=== PATIENT | male | born 1940 | race Caucasian/White ===

== ENCOUNTER 2016-11-18 19:43 | Inpatient (IN) | payer OTHER ==
[~2016-11-18] VITALS: Ht 177.8 cm; Wt 88.4 kg
[~2016-11-18 19:43] MED LIST: AMLO-110 PO; AMLO2.5T PO; ATOR-24 PO; PANT40TA PO; SERT50TA PO
[2016-11-18 19:52] VITALS: Ht 177.8 cm; Wt 88.4 kg
[2016-11-18] MEDS ORDERED: MoRPHine SULFATE 4 MG/ML 1 ML CARP\\VIAL IV STA ×2 (20:20→21:44)
[2016-11-18] MEDS: SODIUM CHLORIDE 0.9% 1000ML 1,000 ML IV SCH ×2 (20:47→22:06)
[2016-11-18 20:53] LABS: BASO % 0.1 %; BASO ABS # 0.01 K/uL (0-0.2); COMPLETE YES; EOS % 0.2 %; HEMATOCRIT 42.9 % (42-52); IG% 0.4 %; LYMPH % 22.6 %; LYMPH ABS # 4.08 K/uL (1.2-3.4); MEAN CELL VOLUME 80.2 fL (80-100); MEAN PLATELET VOLUME 11.1 fL (7.4-10.4); MONO % 7.9 %; NEUT % 68.8 %; PLATELET COUNT 281 K/uL (130-400); RED BLOOD COUNT 5.35 M/uL (4.7-6.1); WHITE BLOOD COUNT 18.03 K/uL (4.8-10.8)
[2016-11-18 20:56] LABS: ISTAT CREATININE 0.7 mg/dl (0.6-1.3); ISTAT HEMOGLOBIN 16.3 g/dl (14.0-18.0); ISTAT IONIZED CALCIUM 1.14 mmol/l (1.12-1.32)
--- NOTE | 2016-11-18 20:57 | EMERGENCY ROOM VISIT NOTE ---
History First contact with patient: 19:57 Chief Complaint: ABDOMINAL PAIN Stated Complaint: SEVERE STOMACH PAIN Nursing Triage Summary: Abdominal pain since yesterday. Takes hydrocodone for herniated disc. Patient feels the medication is causing the pain. History of Present Illness The patient is a 76 year old male who presents to the Emergency Room with complaints of severe abdominal pain. The pain started last night but he was largely able to ignore it. He even saw his PCP today to establish care, at which time the pain was still not severe. The pain was more reflux-like pain. Suddenly 4 hours prior to presenting he was awoken from a nap with a severe sharp/stabbing central abdominal pain. He rates it 9/10. It does not radiate to the flanks or back. He has had nausea but no vomiting. He denies diarrhea or constipation. His last BM was this morning and it was soft, no blood or dark tarry stool. He feels that his stomach is distended, his states that it always looks like that. Of note, he consumes 8 units of alcohol daily (beer). He last had alcohol last night. He has been told that he has either cirrhosis or fatty liver disease he is uncertain of the specific diagnosis. He does have chronic back pain for which he takes hydrocodone. He has taken this for years with no recent changes. He was seen in urgent care at the [place] 1 week ago for worsening lower back and hip pain and was started on Gabapentin at that time. He notes that he also feels slightly lightheaded. His appetite is low at baseline and this is unchanged. He denies chest pain, shortness of breath, coughing or wheezing. He denies fevers, chills or nightsweats. Review of Systems A 10 point review of systems was negative unless stated above. Past Medical/Surgical History HTN Type 2 Diabetes Mellitus Hypercholesterolemia Prostate Ca with prostatectomy Spinal decompression surgery Family History Prostate Ca CAD Social History Smoking Status: Never Smoker Smokeless Tobacco Use: No Alcohol Use: heavy (8 units nightly) Drug Use: none Marital Status: Housing Status: lives with family Occupation Status: retired Current/Historical Medications Scheduled Amlodipine (Norvasc), 10 MG PO DAILY Atorvastatin (Lipitor), 40 MG PO QPM Finasteride (Proscar), 5 MG PO DAILY Glipizide (Glucotrol), 10 MG PO BIDM Lisinopril (Lisinopril), 20 MG PO DAILY Metformin Hcl (Glucophage), 1,000 MG PO BID Omeprazole (Prilosec), 20 MG PO DAILY Tamsulosin HCl (Tamsulosin HCl), 0.4 MG PO HS Venlafaxine Hcl (Effexor), 37.5 MG PO BID Scheduled PRN Acetaminophen/Hydrocodone (Hydrocodone/Acetaminophen 5-325 mg), 1 TAB PO Q6 PRN for Pain Cyclobenzaprine Hcl (Flexeril), 10 MG PO BID PRN for Muscle Spasms Etodolac (Etodolac), 500 MG PO BID PRN for PAIN/INFLAMMATION Allergies Coded Allergies: No Known Allergies (Verified , 11/18/16) Physical Exam Vital Signs Date Time Temp Pulse Resp B/P Pulse Ox O2 Delivery O2 Flow Rate FiO2 11/18/16 19:52 36.8 123 22 112/70 93 Room Air Pain Rating (0-10): 9 Physical Exam Constitutional: Vital signs as above were reviewed. Eyes: Pupils equal, round, and reactive to light. Extraocular muscles are intact. No proptosis. No photophobia. ENT: Mucous membranes are moist. Oropharynx is clear. No sinus tenderness. TMs are clear bilaterally. Cardiovascular: Heart with a regular rate and rhythm. Pulses are palpable and symmetric in all 4 extremities. No pedal edema appreciated. Soft systolic murmur at the apex, without radiation to the axilla Respiratory: Lungs clear to auscultation bilaterally. No wheezes, rales, or rhonchi appreciated. No accessory muscle use. No retractions. No increased work of breathing. GI: Abdomen soft, nontender. Normal active bowel sounds. No abdominal hernias appreciated. No rebound. No guarding. Distended; diffuse abdominal tenderness, worse below the ribcage but present througout the abdomen Bowel sounds audible in all 4 quadrants : No CVA tenderness appreciated. Musculoskeletal: No midline cervical or vertebral tenderness. No gross deformities. No bony tenderness. No calf swelling or tenderness. Integumentary: Warm, dry, no rashes appreciated. Neurological: Patient awake, alert, and oriented x 3. Cranial nerves two through 12 grossly intact. Motor 5 out of 5 strength bilateral upper and lower extremities. Lymph: No cervical lymphadenopathy appreciated. Medical Decision & Procedures ER Provider Diagnostic Interpretation: CT ABD/PELVIS IV CONTRAST ONLY CLINICAL HISTORY: Severe generalized abdominal pain COMPARISON STUDY: None. TECHNIQUE: Following the IV administration of 116 mL of Optiray-320, CT scan of the abdomen and pelvis was performed from the lung bases to the proximal femurs. Images are reviewed in the axial, sagittal, and coronal planes. IV contrast was administered without complication. CT DOSE: 578.05 mGy.cm FINDINGS: Lower chest: There are bibasal atelectatic changes. Liver: The liver surface is nodular suggesting underlying cirrhosis. There is trace perihepatic fluid. Gallbladder: Unremarkable. Spleen: The spleen is mildly enlarged measuring 14 cm Pancreas: There is peripancreatic edema, suspicious for acute pancreatitis. Please correlate with appropriate biochemical markers Adrenal glands: Unremarkable. Kidneys: There is symmetric renal cortical enhancement. The kidneys are normal in size without hydronephrosis. Bowel: There is mild duodenal thickening, likely secondary to pancreatitis. There are no transition zones indicate bowel obstruction. There is no evidence of acute diverticulitis. There are no findings to indicate acute appendicitis. Peritoneum: There is trace free fluid in the pelvis. No free intraperitoneal air is visualized. There is a small amount of mesenteric fluid, likely secondary to pancreatitis. Vasculature: There are varices present at the esophagogastric junction. There is no evidence of abdominal aortic aneurysm Adenopathy: There are mildly prominent lymph nodes in the gastrohepatic ligament and vanda hepatis, likely reactive. Pelvic viscera: The bladder, and pelvic viscera are unremarkable. Skeletal structures: No destructive osseous lesions are seen. IMPRESSION: 1. Peripancreatic edema, suspicious for acute pancreatitis. Please correlate with appropriate biochemical markers 2. Mild bowel wall thickening involving the transverse duodenum, likely secondary to pancreatitis 3. Cirrhotic morphology of the liver. Mild splenomegaly. 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 4. No evidence of bowel obstruction. No evidence of free air. Electronically signed by: Abdiaziz Nolen M.D. 11/18/2016 9:26 PM Dictated Date/Time: 11/18/2016 9:21 PM Laboratory Results 11/18/16 20:35 Red Blood Count 5.35, Mean Corpuscular Volume 80.2, Mean Corpuscular Hemoglobin 28.0, Mean Corpuscular Hemoglobin Concent 35.0, Mean Platelet Volume 11.1, Neutrophils (%) (Auto) 68.8, Lymphocytes (%) (Auto) 22.6, Monocytes (%) (Auto) 7.9, Eosinophils (%) (Auto) 0.2, Basophils (%) (Auto) 0.1, Neutrophils # (Auto) 12.40, Lymphocytes # (Auto) 4.08, Monocytes # (Auto) 1.42, Eosinophils # (Auto) 0.04, Basophils # (Auto) 0.01 11/18/16 20:35 Test 11/18/16 20:35 11/18/16 20:39 11/18/16 20:45 White Blood Count 18.03 K/uL (4.8-10.8) Red Blood Count 5.35 M/uL (4.7-6.1) Hemoglobin 15.0 g/dL (14.0-18.0) Hematocrit 42.9 % (42-52) Mean Corpuscular Volume 80.2 fL (80-100) Mean Corpuscular Hemoglobin 28.0 pg (25-34) Mean Corpuscular Hemoglobin Concent 35.0 g/dl (32-36) Platelet Count 281 K/uL (130-400) Mean Platelet Volume 11.1 fL (7.4-10.4) Neutrophils (%) (Auto) 68.8 % Lymphocytes (%) (Auto) 22.6 % Monocytes (%) (Auto) 7.9 % Eosinophils (%) (Auto) 0.2 % Basophils (%) (Auto) 0.1 % Neutrophils # (Auto) 12.40 K/uL (1.4-6.5) Lymphocytes # (Auto) 4.08 K/uL (1.2-3.4) Monocytes # (Auto) 1.42 K/uL (0.11-0.59) Eosinophils # (Auto) 0.04 K/uL (0-0.5) Basophils # (Auto) 0.01 K/uL (0-0.2) RDW Standard Deviation 44.8 fL (36.4-46.3) RDW Coefficient of Variation 15.3 % (11.5-14.5) Immature Granulocyte % (Auto) 0.4 % Immature Granulocyte # (Auto) 0.08 K/uL (0.00-0.02) Est Creatinine Clear Calc Drug Dose 82.5 ml/min Estimated GFR () 98.1 Estimated GFR (Non- 84.6 BUN/Creatinine Ratio 19.5 (10-20) Bedside Lactic Acid Venous 2.01 mmol/L (0.90-1.70) Calcium Level 9.4 mg/dl (8.5-10.1) Total Bilirubin 1.1 mg/dl (0.2-1) Aspartate Amino Transf (AST/SGOT) 53 U/L (15-37) Alanine Aminotransferase (ALT/SGPT) 108 U/L (12-78) Alkaline Phosphatase 165 U/L (45-117) Total Protein 8.6 gm/dl (6.4-8.2) Albumin 4.1 gm/dl (3.4-5.0) Globulin 4.5 gm/dl (2.5-4.0) Albumin/Globulin Ratio 0.9 (0.9-2) Lipase 4124 U/L (73-393) Bedside Hemoglobin 16.3 g/dl (14.0-18.0) Bedside Hematocrit 48 % (42-52) Bedside Sodium 134 mEq/L (135-144) Bedside Potassium 3.8 mEq/L (3.3-5.0) Bedside Chloride 96 mEq/L (101-112) Bedside Total CO2 23 mEq/l (24-31) Anion Gap 21.0 mmol/L (16-25) Bedside Blood Urea Nitrogen 17 mg/dl (7-18) Bedside Creatinine 0.7 mg/dl (0.6-1.3) Bedside Glucose (other) 200 mg/dl (70-99) Bedside Ionized Calcium (Murray) 1.14 mmol/l (1.12-1.32) Urine Color YELLOW Urine Appearance CLEAR (CLEAR) Urine pH 6.0 (4.5-7.5) Urine Specific [place] 1.020 (1.000-1.030) Urine Protein 1+ (NEG) Urine Glucose (UA) 2+ (NEG) Urine Ketones NEG (NEG) Urine Occult Blood NEG (NEG) Urine Nitrite NEG (NEG) Urine Bilirubin NEG (NEG) Urine Urobilinogen NEG (NEG) Urine Leukocyte Esterase NEG (NEG) Urine WBC (Auto) 1-5 /hpf (0-5) Urine RBC (Auto) 0-4 /hpf (0-4) Urine Hyaline Casts (Auto) 1-5 /lpf (0-5) Urine Epithelial Cells (Auto) 10-20 /lpf (0-5) Urine Bacteria (Auto) NEG (NEG) Medications Administered Medications (Trade) Dose Ordered Sig/Sandra Route Start Time Stop Time Status Last Admin Dose Admin Sodium Chloride (Nss 1000ml) 1,000 ml @ 999 mls/hr Q1H1M IV 11/18/16 20:30 12/18/16 20:29 11/18/16 20:47 999 MLS/HR Morphine Sulfate (MoRPHine SULFATE INJ) 4 mg NOW STAT IV 11/18/16 20:20 11/18/16 20:24 DC 11/18/16 20:48 4 MG ED Course 20:00 - Patient evaluated Orders: CBC, CMP, Lipase istat Morphine 4 mg IV 1 L NSS bolus 20:50 - Istat reviewed; normal renal function CT abdomen with IV contrast ordered Re-assessed; patient feeling better 21:00 - Labs reviewed Leukocytosis of 18; no anemia; no thrombocytopenia Mild hyponatremia; POC lactate mildly elevated; transaminitis with elevated alkphos; amylase > 4000 21:30 - CT reviewed: evidence of acute pancreatitis 21:40 - Discussed results with patient and need to admit for further treatment; patient agreeable to plan Patient notes return of pain: 3 mg Morphine IV ordered Patient made NPO NSS @ 250 ml/hr ordered 21:55 - Discussed case with Dr. Hoover who will admit the patient for further treatment. Medical Decision A thorough history was obtained, physical examination performed and the EMR was reviewed. The case was reviewed multiple times over with Dr. Alphonse Parker during the patient's ED visit. Patient is a very pleasant 76 year old male who presents with acute abdominal pain. He does have a marked alcohol intake history, drinking 8 units per evening. WBC did reveal a leukocytosis without anemia or thrombocytopenia. Metabolic panel revealed mild hyponatremia and transaminitis consistent with alcohol consumption. AlkPhos was also elevated but there are no baseline comparisons to these labs. Lipase was noted to be elevated in the 4000s. An amylase level was not obtained CT of the abdomen was obtained and did reveal imaging findings consistent with acute pancreatitis. He is also noted to have a cirrhotic liver. Patient was also cautioned of risks of withdrawal symptoms as an inpatient and to notify staff if he begins to feel agitated has tremors or hallucinations. Patient requires admission for pain control, IV fluids and supportive treatment. Patient was counselled in the ED on long-term goals of reducing alcohol consumption. Patient was doing well at the time of sign-out to hospitalist service. Hospitalist will be coming down to admit the patient for further management. Impression Primary Impression: Acute pancreatitis Additional Impression: Alcohol consumption heavy Departure Information Dispostion Being Evaluated By Hospitalist Condition GOOD Referrals Arun Crawford III, CRNP (PCP) Patient Instructions My [facility] Problem Qualifiers
[2016-11-18] MEDS ORDERED: OPTIRAY 320 IV PRN (21:00)
[2016-11-18 21:09] LABS: URINE APPEARANCE CLEAR (CLEAR); URINE BILIRUBIN NEG (NEG); URINE COLOR YELLOW; URINE NITRITE NEG (NEG); UROBILINOGEN NEG (NEG); ZZUR CULT IF INDIC CLEAN CATCH NO
[2016-11-18 21:12] LABS: BUN/CREATININE RATIO 19.5 (10-20); CALCIUM 9.4 mg/dl (8.5-10.1); CREATININE 0.88 mg/dl (0.60-1.40); POTASSIUM 3.8 mmol/L (3.5-5.1)
[2016-11-18 21:14] LABS: ALB/GLOB RATIO 0.9 (0.9-2)
[2016-11-18] MEDS ORDERED: METF1000 PO (21:15)
[2016-11-18] MEDS ORDERED: FINA5TAB PO (21:15)
[2016-11-18] MEDS ORDERED: EFF/375 PO (21:15)
[2016-11-18] MEDS ORDERED: LDN500 PO (21:15)
[2016-11-18] MEDS ORDERED: LSN20 PO (21:15)
[2016-11-18] MEDS ORDERED: AMLO-114 PO (21:15)
[2016-11-18] MEDS ORDERED: CYCL10TA6 PO (21:15)
[2016-11-18] MEDS ORDERED: HYDR-4313 PO (21:15)
[2016-11-18] MEDS ORDERED: ATOR-26 PO (21:15)
[2016-11-18] MEDS ORDERED: PRLSR20 PO (21:15)
[2016-11-18] MEDS ORDERED: FLM4 PO (21:15)
[2016-11-18] MEDS ORDERED: GLIP10TA9 PO (21:15)
[2016-11-18 21:18] LABS: MANUAL MICROSCOPIC REQUIRED? NO; REVIEW REQ? NO
--- NOTE | 2016-11-18 21:27 | DIAGNOSTIC IMAGING REPORT ---
CT ABD/PELVIS IV CONTRAST ONLY CLINICAL HISTORY: Severe generalized abdominal pain COMPARISON STUDY: None. TECHNIQUE: Following the IV administration of 116 mL of Optiray-320, CT scan of the abdomen and pelvis was performed from the lung bases to the proximal femurs. Images are reviewed in the axial, sagittal, and coronal planes. IV contrast was administered without complication. CT DOSE: 578.05 mGy.cm FINDINGS: Lower chest: There are bibasal atelectatic changes. Liver: The liver surface is nodular suggesting underlying cirrhosis. There is trace perihepatic fluid. Gallbladder: Unremarkable. Spleen: The spleen is mildly enlarged measuring 14 cm Pancreas: There is peripancreatic edema, suspicious for acute pancreatitis. Please correlate with appropriate biochemical markers Adrenal glands: Unremarkable. Kidneys: There is symmetric renal cortical enhancement. The kidneys are normal in size without hydronephrosis. Bowel: There is mild duodenal thickening, likely secondary to pancreatitis. There are no transition zones indicate bowel obstruction. There is no evidence of acute diverticulitis. There are no findings to indicate acute appendicitis. Peritoneum: There is trace free fluid in the pelvis. No free intraperitoneal air is visualized. There is a small amount of mesenteric fluid, likely secondary to pancreatitis. Vasculature: There are varices present at the esophagogastric junction. There is no evidence of abdominal aortic aneurysm Adenopathy: There are mildly prominent lymph nodes in the gastrohepatic ligament and vanda hepatis, likely reactive. Pelvic viscera: The bladder, and pelvic viscera are unremarkable. Skeletal structures: No destructive osseous lesions are seen. IMPRESSION: 1. Peripancreatic edema, suspicious for acute pancreatitis. Please correlate with appropriate biochemical markers 2. Mild bowel wall thickening involving the transverse duodenum, likely secondary to pancreatitis 3. Cirrhotic morphology of the liver. Mild splenomegaly. 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 4. No evidence of bowel obstruction. No evidence of free air. Electronically signed by: Abdiaziz Nolen M.D. 11/18/2016 9:26 PM Dictated Date/Time: 11/18/2016 9:21 PM
--- NOTE | 2016-11-18 21:55 | EMERGENCY ROOM VISIT NOTE ---
ED Visit Note First contact with patient: 19:57 Patient evaluated with resident. 76-year-old with history of regular EtOH use presented to the emergency room for moderate epigastric pain worsening over the last 3 days. His abdomen is noted to be protuberant and moderately tender in the epigastrium. He appears well otherwise. Admitted for pancreatitis
[2016-11-18] MEDS ORDERED: SODIUM CHLORIDE 0.9% 1000ML 1,000 ML IV ONE (22:00)
[2016-11-18 23:15] VITALS: BP 159/106; PULSE 108; TEMP 37.1; O2SAT 93
[2016-11-18] MEDS: ONDANSETRON INJ 2 MG/ML 2 ML VIAL IV PRN (23:39)
[2016-11-18] MEDS: LACTATED RINGER'S 1000ML 1,000 ML IV SCH (23:44)
[2016-11-18 23:53] VITALS: BP 159/106; PULSE 108; TEMP 37.1; O2SAT 93
[2016-11-19] MEDS ORDERED: HYDROmorphone INJ 2 MG/ML SYR/VIAL IV STA (00:13)
[2016-11-19] MEDS ORDERED: NURSING VERBAL MED ORDER ONE (00:15)
[2016-11-19] MEDS ORDERED: MULTI-VITAMIN INFUSION INJ 10 ML, THIAMINE HCL INJ 100 MG, FoLIC ACID INJ 1 MG in SODIU... IV ONE (00:29)
[2016-11-19] MEDS ORDERED: LORAZEPAM 2 MG/ML 1 ML VIAL IV PRN (00:30)
[2016-11-19] MEDS ORDERED: LORAZEPAM INJ 1 MG in SYRINGE 0.5 ML IV PRN (01:30)
--- NOTE | 2016-11-19 03:08 | History and Physical ---
History & Physical Date & Time of Service: Nov 19, 2016 at 02:48 Chief Complaint: Acute Pancreatitis Primary Care Physician: Arun Crawford III, CRNP History of Present Illness Source: patient This is a 76 yo m that is presenting to us with epigastric pain which started approximately 3 days prior. He states that it is in the epigastric region and is a sharp pain. It comes and goes but never fully away and can reach an 8/10. He has not had any N&V but no appetite. No specific agg/ alleviating factors except for movement. He has never had this pain in the past. He also states that he has been taking chronic pain medication for a disc herniation and drinks approx 8 beers a day since he was 17 yo. He was evaluated in the ED and lipase and CT was reflective of pancreatitis. There was also findings reflective of cirrhosis and portal hypertension as noted by the esophageal varices. he has never been diagnosed with cirrhosis in the past. Past Medical/Surgical History Lumbar disc herniation Hyper chol BPH DM HTn Disc decompression Social History Smoking Status: Never Smoker Smokeless Tobacco Use: No Alcohol Use: heavy (as above) Drug Use: none Marital Status: Housing status: lives with family Occupational Status: retired Immunizations History of Influenza Vaccine: No History of Tetanus Vaccine?: Yes History of Pneumococcal: No History of Hepatitis B Vaccine: No Multi-Drug Resistant Organisms History of MDRO: No Allergies Coded Allergies: No Known Allergies (Verified , 11/18/16) Home Medications Scheduled Amlodipine (Norvasc), 10 MG PO DAILY Atorvastatin (Lipitor), 40 MG PO QPM Finasteride (Proscar), 5 MG PO DAILY Glipizide (Glucotrol), 10 MG PO BIDM Lisinopril (Lisinopril), 20 MG PO DAILY Metformin Hcl (Glucophage), 1,000 MG PO BID Omeprazole (Prilosec), 20 MG PO DAILY Tamsulosin HCl (Tamsulosin HCl), 0.4 MG PO HS Venlafaxine Hcl (Effexor), 37.5 MG PO BID Scheduled PRN Acetaminophen/Hydrocodone (Hydrocodone/Acetaminophen 5-325 mg), 1 TAB PO Q6 PRN for Pain Cyclobenzaprine Hcl (Flexeril), 10 MG PO BID PRN for Muscle Spasms Etodolac (Etodolac), 500 MG PO BID PRN for PAIN/INFLAMMATION Review of Systems Constitutional: No fever Eyes: No worsening of vision ENT: No hearing loss Respiratory: No cough, No dyspnea at rest, No dyspnea on exertion, No shortness of breath, No sputum, No wheezing Abdomen: + pain, No constipation, No diarrhea, No nausea, No vomiting Musculoskeletal: No joint pain, No muscle pain Neurologic: No balance problems, No numbness/tingling, No weakness Endocrine: + fatigue Integumentary: No rash Physical Exam Vital Signs Date Time Temp Pulse Resp B/P Pulse Ox O2 Delivery O2 Flow Rate FiO2 11/19/16 00:46 Room Air 11/18/16 23:53 37.1 108 20 159/106 93 Room Air 11/18/16 23:15 37.1 108 20 159/106 93 Room Air 11/18/16 22:44 96 20 157/97 93 Room Air 11/18/16 21:30 104 18 168/94 90 Room Air 11/18/16 19:52 36.8 123 22 112/70 93 Room Air General Appearance: WD/WN, no apparent distress Head: normocephalic, atraumatic Eyes: normal inspection ENT: normal ENT inspection Neck: supple Respiratory/Chest: lungs clear, normal breath sounds, no respiratory distress, no accessory muscle use Cardiovascular: regular rate, rhythm, + systolic murmur (3/6) Abdomen/GI: normal bowel sounds, + tenderness (epigastric no rebound), + distended Back: normal inspection Extremities/Musculoskelatal: no calf tenderness, no pedal edema, normal range of motion Neurologic/Psych: alert, normal mood/affect, oriented x 3 Skin: normal color, warm/dry, no rash Lymphatic: no adenopathy Diagnostics Laboratory Results Results Past 24 Hours Test 11/18/16 20:35 11/18/16 20:39 11/18/16 20:45 11/19/16 00:46 Range/Units White Blood Count 18.03 4.8-10.8 K/uL Red Blood Count 5.35 4.7-6.1 M/uL Hemoglobin 15.0 14.0-18.0 g/dL Hematocrit 42.9 42-52 % Mean Corpuscular Volume 80.2 80-100 fL Mean Corpuscular Hemoglobin 28.0 25-34 pg Mean Corpuscular Hemoglobin Concent 35.0 32-36 g/dl Platelet Count 281 130-400 K/uL Mean Platelet Volume 11.1 7.4-10.4 fL Neutrophils (%) (Auto) 68.8 % Lymphocytes (%) (Auto) 22.6 % Monocytes (%) (Auto) 7.9 % Eosinophils (%) (Auto) 0.2 % Basophils (%) (Auto) 0.1 % Neutrophils # (Auto) 12.40 1.4-6.5 K/uL Lymphocytes # (Auto) 4.08 1.2-3.4 K/uL Monocytes # (Auto) 1.42 0.11-0.59 K/uL Eosinophils # (Auto) 0.04 0-0.5 K/uL Basophils # (Auto) 0.01 0-0.2 K/uL RDW Standard Deviation 44.8 36.4-46.3 fL RDW Coefficient of Variation 15.3 11.5-14.5 % Immature Granulocyte % (Auto) 0.4 % Immature Granulocyte # (Auto) 0.08 0.00-0.02 K/uL Sodium Level 134 136-145 mmol/L Potassium Level 3.8 3.5-5.1 mmol/L Chloride Level 97 98-107 mmol/L Carbon Dioxide Level 25 21-32 mmol/L Anion Gap 12.0 21.0 16-25 mmol/L Blood Urea Nitrogen 17 7-18 mg/dl Creatinine 0.88 0.60-1.40 mg/dl Est Creatinine Clear Calc Drug Dose 82.5 ml/min Estimated GFR () 98.1 Estimated GFR (Non- 84.6 BUN/Creatinine Ratio 19.5 10-20 Random Glucose 187 70-99 mg/dl Bedside Lactic Acid Venous 2.01 0.90-1.70 mmol/L Calcium Level 9.4 8.5-10.1 mg/dl Total Bilirubin 1.1 0.2-1 mg/dl Aspartate Amino Transf (AST/SGOT) 53 15-37 U/L Alanine Aminotransferase (ALT/SGPT) 108 12-78 U/L Alkaline Phosphatase 165 45-117 U/L Total Protein 8.6 6.4-8.2 gm/dl Albumin 4.1 3.4-5.0 gm/dl Globulin 4.5 2.5-4.0 gm/dl Albumin/Globulin Ratio 0.9 0.9-2 Lipase 4124 73-393 U/L Bedside Hemoglobin 16.3 14.0-18.0 g/dl Bedside Hematocrit 48 42-52 % Bedside Sodium 134 135-144 mEq/L Bedside Potassium 3.8 3.3-5.0 mEq/L Bedside Chloride 96 101-112 mEq/L Bedside Total CO2 23 24-31 mEq/l Bedside Blood Urea Nitrogen 17 7-18 mg/dl Bedside Creatinine 0.7 0.6-1.3 mg/dl Bedside Glucose (other) 200 70-99 mg/dl Bedside Ionized Calcium (Murray) 1.14 1.12-1.32 mmol/l Urine Color YELLOW Urine Appearance CLEAR CLEAR Urine pH 6.0 4.5-7.5 Urine Specific [place] 1.020 1.000-1.030 Urine Protein 1+ NEG Urine Glucose (UA) 2+ NEG Urine Ketones NEG NEG Urine Occult Blood NEG NEG Urine Nitrite NEG NEG Urine Bilirubin NEG NEG Urine Urobilinogen NEG NEG Urine Leukocyte Esterase NEG NEG Urine WBC (Auto) 1-5 0-5 /hpf Urine RBC (Auto) 0-4 0-4 /hpf Urine Hyaline Casts (Auto) 1-5 0-5 /lpf Urine Epithelial Cells (Auto) 10-20 0-5 /lpf Urine Bacteria (Auto) NEG NEG Ammonia 39.0 11-32 umol/L Diagnostic Radiology [~ rep ct add3]] CT ABD/PELVIS IV CONTRAST ONLY CLINICAL HISTORY: Severe generalized abdominal pain COMPARISON STUDY: None. TECHNIQUE: Following the IV administration of 116 mL of Optiray-320, CT scan of the abdomen and pelvis was performed from the lung bases to the proximal femurs. Images are reviewed in the axial, sagittal, and coronal planes. IV contrast was administered without complication. CT DOSE: 578.05 mGy.cm FINDINGS: Lower chest: There are bibasal atelectatic changes. Liver: The liver surface is nodular suggesting underlying cirrhosis. There is trace perihepatic fluid. Gallbladder: Unremarkable. Spleen: The spleen is mildly enlarged measuring 14 cm Pancreas: There is peripancreatic edema, suspicious for acute pancreatitis. Please correlate with appropriate biochemical markers Adrenal glands: Unremarkable. Kidneys: There is symmetric renal cortical enhancement. The kidneys are normal in size without hydronephrosis. Bowel: There is mild duodenal thickening, likely secondary to pancreatitis. There are no transition zones indicate bowel obstruction. There is no evidence of acute diverticulitis. There are no findings to indicate acute appendicitis. Peritoneum: There is trace free fluid in the pelvis. No free intraperitoneal air is visualized. There is a small amount of mesenteric fluid, likely secondary to pancreatitis. Vasculature: There are varices present at the esophagogastric junction. There is no evidence of abdominal aortic aneurysm Adenopathy: There are mildly prominent lymph nodes in the gastrohepatic ligament and vanda hepatis, likely reactive. Pelvic viscera: The bladder, and pelvic viscera are unremarkable. Skeletal structures: No destructive osseous lesions are seen. IMPRESSION: 1. Peripancreatic edema, suspicious for acute pancreatitis. Please correlate with appropriate biochemical markers 2. Mild bowel wall thickening involving the transverse duodenum, likely secondary to pancreatitis 3. Cirrhotic morphology of the liver. Mild splenomegaly. 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 4. No evidence of bowel obstruction. No evidence of free air. 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 portal hypertension history of alcohol abuse - IV ativan for alcohol withdrawal - defer from chlordiazepoxide because of cirrhosis/ elevated LFT - start Propranolol 80 mg, Lasix 40 mg, Spironolactone 50 mg - ammonium level - consult GI Hyponatremia possibly secondary to alcohol abuse - recheck in am Unknown systolic murmur - echo for am HTN - Amlodipine decreased to 5 mg because of med additions - cont Lisinopril DM - Glipizide and metformin held - bsg ac hs - insulin ISS Hyperchol -- hold atorvastatin because of elevated LFT BPH - cont tamsulosin and finasteride Depression - cont effexor DVT Prophylaxis SCD - check INR prior to initiating alt FULL CODE Advanced Directives Existing Living Will: No Existing Power of Outside Operator: No Resuscitation Status FULL RESUSCITATION VTE Prophylaxis VTE Risk Assessment Done? Y/N: Yes Risk Level: Moderate Given or contraindicated: SCD's Note Total Time: Critical Care 30 - 74 minutes Additional Copies To Arun Crawford III, CRNP Assessment and Plan Attending Addendum: I have physically seen and examined this patient, have directed their medical care, have supervised the medical residents activities, and agree with the H&P as noted above, with the following changes: NONE The patient is awake, well-developed and adequately nourished, alert and oriented 3, normocephalic and atraumatic, lying in bed and in mild distress secondary to abdominal pain. HEENT--PERRL, EOMI, mucous membranes and oropharynx dry. Neck--supple, no JVD or bruits, thyroid normal, trachea midline, no adenopathy. Heart--normal S1 and S2, no extra beats, no murmurs, rubs or gallops. Lungs--clear bilaterally, no respiratory distress, no accessory muscle use. Abdomen--normal bowel sounds, moderately tympanitic, generalized tenderness. Extremities--no cyanosis, clubbing or edema. There are good distal pulses b/l. Dermatologic--normal skin turgor, normal color, warm and dry, no abnormal lymph nodes, no rash. Neurologic--cranial nerves II through XII grossly intact, motor and sensory examination normal. Rheumatologic--normal range of motion, nontender, muscles and joints. Psychiatric--normal affect. Assessment and Plan: Acute pancreatitis secondary to alcohol use--patient be admitted to medical floor. We'll follow serial amylase and lipase, diet will be as tolerated. I discussed with him the importance of alcohol cessation. He also has mild splenomegaly, and gastric varices are noted. We'll consult gastroenterology for patient to get an EGD to assess for possible esophageal varices. We will start him on Inderal LA 80 mg by mouth every morning, furosemide 40 mg by mouth every morning, and spironolactone 50 mg by mouth every morning to address issues of portal hypertension and minimize potential future bleeding issues. When he does resume a more normal diabetic diet, he may deserve a trial of pancreatic enzymes. Hypertension--continue lisinopril 20 mg by mouth daily, will cut amlodipine from 10 mg to 5 mg by mouth daily, and add Inderal LA 80 mg daily, furosemide 40 mg daily, and spironolactone 50 mg daily as noted above. Diabetes mellitus--hold metformin with asthma grams by mouth twice a day, and glipizide 10 mg by mouth twice a day. Place on Accu-Cheks before meals and at bedtime with NovoLog coverage. BPH--continue tamsulosin 0.4 mg by mouth at bedtime, and finasteride 5 mg by mouth daily. Anxiety/depression--continue venlafaxine 37.5 mg by mouth twice a day. GERD change omeprazole 20 mg by mouth daily to pantoprazole 40 mg by mouth daily for formulary interchange. Hyperlipidemia--continue atorvastatin 40 mg by mouth every afternoon.
[2016-11-19] MEDS ORDERED: GLUCOSE 10 TABS/TUBE PO PRN (03:15)
[2016-11-19] MEDS ORDERED: DEXTROSE 50% 50 ML SYR IV PRN (03:15)
[2016-11-19] MEDS ORDERED: GLUCOSE 40% GEL 15 GM TUBE PO PRN (03:15)
[2016-11-19] MEDS ORDERED: GLUCAGON FOR INJ 1 MG VIAL SQ PRN (03:15)
[2016-11-19 04:43] LABS: HEMATOCRIT 44.3 % (42-52); MEAN CELL VOLUME 82.8 fL (80-100); MEAN CORPUSCULAR HEMOGLOBIN 27.9 pg (25-34); MEAN CORPUSCULAR HGB CONC 33.6 g/dl (32-36); MEAN PLATELET VOLUME 10.1 fL (7.4-10.4); PLATELET COUNT 207 K/uL (130-400); RED BLOOD COUNT 5.35 M/uL (4.7-6.1); WHITE BLOOD COUNT 16.73 K/uL (4.8-10.8)
[2016-11-19 05:10] LABS: INR 1.1 (0.9-1.1); PARTIAL THROMBOPLASTIN RATIO 1.1; PROTHROMBIN TIME (PATIENT) 12.1 SECONDS (9.0-12.0)
[2016-11-19 05:12] LABS: BUN/CREATININE RATIO 17.7 (10-20); CALCIUM 8.6 mg/dl (8.5-10.1); CREATININE 0.92 mg/dl (0.60-1.40); POTASSIUM 4.3 mmol/L (3.5-5.1)
[2016-11-19 05:15] LABS: ALB/GLOB RATIO 0.9 (0.9-2)
[2016-11-19] MEDS: INSULIN ASPART 100 UNITS/ML 3 ML PEN SC SCH ×3 (06:29→18:00)
[2016-11-19] MEDS ORDERED: INSULIN ASPART 100 UNITS/ML 3 ML PEN SC SCH (06:30)
[2016-11-19] MEDS ORDERED: NURSING DECISION MEDICATION ORDER SCH (06:30)
[2016-11-19] MEDS: MoRPHine SULFATE 4 MG/ML 1 ML CARP\\VIAL IV PRN ×3 (06:31→16:52)
[2016-11-19 08:39] VITALS: BP 147/88; PULSE 115; PULSE 20; TEMP 37; O2SAT 91
[2016-11-19] MEDS: FUROSEMIDE 40 MG TAB PO SCH (08:46)
[2016-11-19] MEDS: PROPRANOLOL HCL 80 MG TAB PO SCH (08:46)
[2016-11-19] MEDS: LACTATED RINGER'S 1000ML 1,000 ML IV SCH ×4 (08:46→18:36)
[2016-11-19] MEDS: VENLAFAXINE HCL 37.5 MG TAB PO SCH ×2 (08:46→21:02)
[2016-11-19] MEDS: SPIRONOLACTONE 25 MG TAB PO SCH (08:46)
[2016-11-19] MEDS: PANTOprazole INJ 40 MG in SYRINGE 0 ML IV SCH (08:47)
[2016-11-19] MEDS: FINASTERIDE 5 MG TAB PO SCH (08:47)
[2016-11-19] MEDS: LISINOPRIL 20 MG TAB PO SCH (08:47)
[2016-11-19] MEDS ORDERED: AMLODIPINE BESYLATE 5 MG TAB PO SCH ×2 (09:00)
[2016-11-19] MEDS ORDERED: LACTATED RINGER'S 1000ML 1,000 ML IV SCH (09:15)
--- NOTE | 2016-11-19 09:17 | Gastroenterology Progress Note ---
Progress Note Date of Service: Nov 19, 2016 Subjective Pt evaluation today including: conversation w/ patient, physical exam, chart review, lab review, review of studies, review of inpatient medication list became aware of this consult when opened EMR and saw on list this am. Medications Current Inpatient Medications Medications (Trade) Dose Ordered Sig/Sandra Route Start Time Stop Time Status Last Admin Dose Admin Ioversol (Optiray 320) 100 ml UD PRN IV 11/18/16 21:00 11/22/16 20:59 Ondansetron HCl 4 mg 4 mg Q6H PRN IV 11/18/16 22:30 12/18/16 22:29 11/18/16 23:39 4 MG Lactated Ringer's (Lr 1000ml) 1,000 ml @ 150 mls/hr Q6H40M IV 11/18/16 23:15 11/19/16 19:14 11/18/16 23:44 150 MLS/HR Lorazepam (Ativan Inj) 1 mg Q1H PRN IV 11/19/16 00:30 12/19/16 00:29 Morphine Sulfate (MoRPHine SULFATE INJ) 2 mg Q4 PRN IV 11/19/16 00:45 12/03/16 00:44 Morphine Sulfate 4 mg 4 mg Q4 PRN IV 11/19/16 00:45 12/03/16 00:44 11/19/16 06:31 4 MG Pantoprazole Sodium/Syringe (Protonix Inj/ Syringe) 10 ml @ 5 mls/min DAILY@11 IV 11/19/16 11:00 12/19/16 10:59 Finasteride (Proscar Tab) 5 mg DAILY PO 11/19/16 09:00 12/19/16 08:59 Lisinopril (Zestril Tab) 20 mg DAILY PO 11/19/16 09:00 12/19/16 08:59 Tamsulosin HCl (Flomax Cap) 0.4 mg HS PO 11/19/16 21:00 12/19/16 20:59 Venlafaxine HCl 37.5 mg 37.5 mg BID PO 11/19/16 09:00 12/19/16 08:59 Lorazepam/Syringe (Ativan Inj/ Syringe) 1 ml @ 1 mls/min Q1H PRN IV 11/19/16 01:30 12/19/16 01:29 Amlodipine Besylate (Norvasc Tab) 5 mg QAM PO 11/19/16 09:00 12/19/16 08:59 Propranolol HCl (Inderal Tab) 80 mg QAM PO 11/19/16 09:00 12/19/16 08:59 Furosemide (Lasix Tab) 40 mg QAM PO 11/19/16 09:00 12/19/16 08:59 Spironolactone (Aldactone Tab) 50 mg QAM PO 11/19/16 09:00 12/19/16 08:59 Glucose (Glucose 40% Gel) 15-30 GRAMS 15 GRAMS... UD PRN PO 11/19/16 03:15 12/19/16 03:14 Glucose (Glucose Chew Tab) 4-8 Tablets 4 Tabl... UD PRN PO 11/19/16 03:15 12/19/16 03:14 Dextrose (Dextrose 50% 50ML Syringe) 25-50ML OF 50% DW IV FOR... UD PRN IV 11/19/16 03:15 12/19/16 03:14 Glucagon (Glucagon Inj) 1 mg UD PRN SQ 11/19/16 03:15 12/19/16 03:14 Insulin Aspart (novoLOG ASPART) SLIDING SCALE G... Q6 SC 11/19/16 12:00 12/19/16 11:59 11/19/16 06:29 1 UNITS Objective Vital Signs Date Time Temp Pulse Resp B/P Pulse Ox O2 Delivery O2 Flow Rate FiO2 11/19/16 00:46 Room Air 11/18/16 23:53 37.1 108 20 159/106 93 Room Air 11/18/16 23:15 37.1 108 20 159/106 93 Room Air 11/18/16 22:44 96 20 157/97 93 Room Air 11/18/16 21:30 104 18 168/94 90 Room Air 11/18/16 19:52 36.8 123 22 112/70 93 Room Air Laboratory Results Last 24 Hours Test 11/18/16 20:35 11/18/16 20:39 11/18/16 20:45 11/19/16 00:46 White Blood Count 18.03 K/uL Red Blood Count 5.35 M/uL Hemoglobin 15.0 g/dL Hematocrit 42.9 % Mean Corpuscular Volume 80.2 fL Mean Corpuscular Hemoglobin 28.0 pg Mean Corpuscular Hemoglobin Concent 35.0 g/dl Platelet Count 281 K/uL Mean Platelet Volume 11.1 fL Neutrophils (%) (Auto) 68.8 % Lymphocytes (%) (Auto) 22.6 % Monocytes (%) (Auto) 7.9 % Eosinophils (%) (Auto) 0.2 % Basophils (%) (Auto) 0.1 % Neutrophils # (Auto) 12.40 K/uL Lymphocytes # (Auto) 4.08 K/uL Monocytes # (Auto) 1.42 K/uL Eosinophils # (Auto) 0.04 K/uL Basophils # (Auto) 0.01 K/uL RDW Standard Deviation 44.8 fL RDW Coefficient of Variation 15.3 % Immature Granulocyte % (Auto) 0.4 % Immature Granulocyte # (Auto) 0.08 K/uL Sodium Level 134 mmol/L Potassium Level 3.8 mmol/L Chloride Level 97 mmol/L Carbon Dioxide Level 25 mmol/L Anion Gap 12.0 mmol/L 21.0 mmol/L Blood Urea Nitrogen 17 mg/dl Creatinine 0.88 mg/dl Est Creatinine Clear Calc Drug Dose 82.5 ml/min Estimated GFR () 98.1 Estimated GFR (Non- 84.6 BUN/Creatinine Ratio 19.5 Random Glucose 187 mg/dl Bedside Lactic Acid Venous 2.01 mmol/L Calcium Level 9.4 mg/dl Total Bilirubin 1.1 mg/dl Aspartate Amino Transf (AST/SGOT) 53 U/L Alanine Aminotransferase (ALT/SGPT) 108 U/L Alkaline Phosphatase 165 U/L Total Protein 8.6 gm/dl Albumin 4.1 gm/dl Globulin 4.5 gm/dl Albumin/Globulin Ratio 0.9 Lipase 4124 U/L Bedside Hemoglobin 16.3 g/dl Bedside Hematocrit 48 % Bedside Sodium 134 mEq/L Bedside Potassium 3.8 mEq/L Bedside Chloride 96 mEq/L Bedside Total CO2 23 mEq/l Bedside Blood Urea Nitrogen 17 mg/dl Bedside Creatinine 0.7 mg/dl Bedside Glucose (other) 200 mg/dl Bedside Ionized Calcium (Murray) 1.14 mmol/l Urine Color YELLOW Urine Appearance CLEAR Urine pH 6.0 Urine Specific [place] 1.020 Urine Protein 1+ Urine Glucose (UA) 2+ Urine Ketones NEG Urine Occult Blood NEG Urine Nitrite NEG Urine Bilirubin NEG Urine Urobilinogen NEG Urine Leukocyte Esterase NEG Urine WBC (Auto) 1-5 /hpf Urine RBC (Auto) 0-4 /hpf Urine Hyaline Casts (Auto) 1-5 /lpf Urine Epithelial Cells (Auto) 10-20 /lpf Urine Bacteria (Auto) NEG Ammonia 39.0 umol/L Test 11/19/16 04:21 11/19/16 06:05 White Blood Count 16.73 K/uL Red Blood Count 5.35 M/uL Hemoglobin 14.9 g/dL Hematocrit 44.3 % Mean Corpuscular Volume 82.8 fL Mean Corpuscular Hemoglobin 27.9 pg Mean Corpuscular Hemoglobin Concent 33.6 g/dl RDW Standard Deviation 46.2 fL RDW Coefficient of Variation 15.4 % Platelet Count 207 K/uL Mean Platelet Volume 10.1 fL Prothrombin Time 12.1 SECONDS Prothromb Time International Ratio 1.1 Activated Partial Thromboplast Time 29.2 SECONDS Partial Thromboplastin Ratio 1.1 Sodium Level 137 mmol/L Potassium Level 4.3 mmol/L Chloride Level 100 mmol/L Carbon Dioxide Level 28 mmol/L Anion Gap 9.0 mmol/L Blood Urea Nitrogen 16 mg/dl Creatinine 0.92 mg/dl Est Creatinine Clear Calc Drug Dose 78.9 ml/min Estimated GFR () 94.6 Estimated GFR (Non- 81.6 BUN/Creatinine Ratio 17.7 Random Glucose 183 mg/dl Calcium Level 8.6 mg/dl Magnesium Level 2.0 mg/dl Total Bilirubin 1.1 mg/dl Aspartate Amino Transf (AST/SGOT) 34 U/L Alanine Aminotransferase (ALT/SGPT) 84 U/L Alkaline Phosphatase 130 U/L Total Protein 7.5 gm/dl Albumin 3.5 gm/dl Globulin 4.0 gm/dl Albumin/Globulin Ratio 0.9 Lipase 5771 U/L Bedside Glucose 186 mg/dl Assessment and Plan GI consult dictated job [id number] acute pancreatitsi--likely from ETOH and told patient recommend complete abstinence, lipase is worse today and patient states only urine output about 7 hours ago. Very important to get adequate perfusion of pancreas otherwise can get signficant worsening of pancreatis. Discussed with nurse need strict I/O and looking for 40-50 ml/ hour urine output. Will give one liter bolus of LR then increase rate to 250 ml/hour. NPO except meds epigastric pain--secondary to pancrettis esophageal varices---elective EGD thickened duodenum--likely from pancrrritisi but can evaluate on elective EGD elevated WBC--likely from pancrraritisi elevated lactic acid no evidence of ischemic bowel on CT--likely from volume depleation--folllow elevated LFTS--improved--likely from ETOH
[2016-11-19] MEDS ORDERED: THIAMINE HCL 100 MG/ML 2 ML VIAL IM STA (09:52)
[2016-11-19] MEDS ORDERED: THIAMINE HCL INJ 200 MG in SODIUM CHLORIDE 0.9% 50ML 50 ML IV ONE (11:30)
--- NOTE | 2016-11-19 13:25 | ECHOCARDIOGRAM REPORT ---
*NOTICE TO RECEIVING DEMOCRAT AGENCY This information is strictly Confidential and protected under [place] law. [place] law prohibits you from making any further disclosure of this information unless further disclosure is expressly permitted by the written consent of the person to whom it pertains or is authorized by law. A general authorization for the release of medical or other information is not sufficient for this purpose. Hospital accepts no responsibility if the information is made available to any other person, INCLUDING THE PATIENT. Interpretation Summary * Name: SABINA CLARK Study Date: 11/19/2016 08:50 AM BP: 159/106 mmHg * Patient Location: .[id number]\2 HR: 116 * : 1940 (M/d/yyyy) Gender: Male Height: 70 in * Age: 76 yrs Ethnicity: [place] Weight: 194 lb * Ordering Physician: Brenda Davis * Referring Physician: Self, Referred * Performed By: Sharlene Lindo [facility] * * Reason For Study: MURMUR * BSA: 2.1 m2 * -- Conclusions -- * The left ventricle is hyperdynamic. * No regional wall motion abnormalities noted. * Ejection Fraction = >70 %. * There is moderate concentric left ventricular hypertrophy. * Aortic valve sclerosis moderate, without significant aortic valvular stenosis. Procedure Details * A complete two-dimensional transthoracic echocardiogram was performed (2D, M-mode, Doppler and color flow Doppler). Left Ventricle * The left ventricular cavity is small. * There is moderate concentric left ventricular hypertrophy. * The left ventricle is hyperdynamic. * Ejection Fraction = >70 %. * No regional wall motion abnormalities noted. Right Ventricle * The right ventricle is grossly normal size. * The right ventricular systolic function is normal as assessed by tricuspid annular plane systolic excursion (TAPSE) (normal >1.5 cm). Atria * The left atrium is mildly dilated. * Right atrial size is normal. * There is no evidence of atrial septal defect, but resolution does not allow assessment for a patent foramen ovale. Mitral Valve * The mitral valve is grossly normal. * There is no mitral valve stenosis. * There is trace mitral regurgitation. Tricuspid Valve * The tricuspid valve is not well visualized, but is grossly normal. * There is no tricuspid stenosis. * There is trace tricuspid regurgitation. Aortic Valve * The aortic valve is trileaflet. * Aortic valve sclerosis moderate, without significant aortic valvular stenosis. * The aortic valve opens well. * There is no significant aortic regurgitation. Pulmonic Valve * The pulmonary valve is not well seen, but the Doppler examination is normal without significant regurgitation or stenosis. * There is no significant pulmonary regurgitation. Great Vessels * The aortic root is normal size. * Mildly dilated ascending aorta. * The pulmonary is not well visualized. Pericardium/Pleural * There is no pericardial effusion. Great Vessels * IVC not well seen. MMode 2D Measurements and Calculations IVSd 2.0 cm IVSs 2.1 cm LVIDd 3.9 cm LVIDs 2.8 cm LVPWd 1.4 cm LVPWs 1.6 cm IVS/LVPW 1.4 FS 26.8 % EDV(Teich) 64.0 ml ESV(Teich) 30.1 ml EF(Teich) 53.0 % EDV(cubed) 57.2 ml ESV(cubed) 22.4 ml EF(cubed) 60.8 % % IVS thick 8.7 % % LVPW thick 16.2 % LV mass(C)d 267.7 grams LV mass(C)dI 129.9 grams/m\S\2 LV mass(C)s 221.0 grams LV mass(C)sI 107.3 grams/m\S\2 SV(Teich) 33.9 ml SI(Teich) 16.5 ml/m\S\2 SV(cubed) 34.8 ml SI(cubed) 16.9 ml/m\S\2 Ao root diam 3.9 cm Ao root area 11.9 cm\S\2 LA dimension 4.9 cm LA/Ao 1.3 LVOT diam 1.8 cm LVOT area 2.5 cm\S\2 Doppler Measurements and Calculations MV E max nessa 121.9 cm/sec MV P1/2t max nessa 146.0 cm/sec MV P1/2t 36.1 msec MVA(P1/2t) 6.1 cm\S\2 MV dec slope 1183.2 cm/sec\S\2 MV dec time 0.12 sec Ao V2 max 177.2 cm/sec Ao max PG 12.6 mmHg Ao max PG (full) 7.2 mmHg YUMIKO(V,A) 1.6 cm\S\2 YUMIKO(V,D) 1.6 cm\S\2 LV V1 max PG 5.3 mmHg LV V1 max 115.4 cm/sec PA V2 max 87.1 cm/sec PA max PG 3.0 mmHg TR max nessa 233.1 cm/sec
--- NOTE | 2016-11-19 13:49 | GASTROINTESTINAL CONSULTATION ---
DATE OF CONSULTATION: 11/19/2016 REASON FOR CONSULTATION: Cirrhosis, pancreatitis, and varices. CHIEF COMPLAINT: The patient has abdominal pain. HISTORY OF PRESENT ILLNESS: The patient, the night before admission had some mild epigastric pain and about 4 hours prior to the Emergency Room visit had abrupt worsening of sharp epigastric pain up to 9/10. It was not improving, came into the Emergency Room. A CAT scan of the abdomen and pelvis showed cirrhosis, trace perihepatic fluid, splenomegaly, peripancreatic fluid consistent with pancreatitis and duodenal thickening, probably secondary to pancreatitis and varices at the GE junction. Initial lipase 4124, today worse at 5771. He has been on lactated Ringer's about 150 an hour since then and only about one urine output that at about 0200, about 7 hours prior to this dictation. He thinks the pain is somewhat better. No bloody stools or black stools. No change in bowels, no dysphagia, no change in his weight. No fever. Some nausea but no vomiting. He has a history of GERD. States he may have had an EGD and colonoscopy in the last 3 or 4 years in [place], unknown results but does not remember hearing anything about varices noted at that time. He was told he has cirrhosis and had been followed by GI doctors at the [facility] for that. PAST MEDICAL HISTORY: ALLERGIES: Negative. MEDICATIONS ON ADMISSION: Amlodipine, Lipitor, Proscar, Glucotrol, lisinopril, Glucophage, Prilosec, tamsulosin, Effexor, hydrocodone/acetaminophen, Flexeril, etodolac. PROBLEMS AND SURGERY: Chronic back pain, hypertension, type 2 diabetes, hypercholesterolemia, prostate cancer. He has had prostatectomy, spinal decompression surgery. FAMILY HISTORY: Prostate cancer. SOCIAL HISTORY: Tobacco negative, ethanol 8 beers daily. REVIEW OF SYSTEMS: CONSTITUTIONAL: Negative. EYES: Negative. EARS, NOSE, MOUTH, THROAT: Negative. CARDIOVASCULAR, RESPIRATORY, GENITOURINARY, MUSCULOSKELETAL: Negative. INTEGUMENTARY: Negative. NEUROLOGIC: Negative. PSYCHIATRIC: Depression. ENDOCRINE: Negative. HEMATOLOGIC: History of prostate cancer, otherwise negative. PHYSICAL EXAMINATION: GENERAL: Male, appears stated age, in no acute distress. VITAL SIGNS: Most recent vital signs in the chart. Temp 37.1, pulse 108, respirations 20, BP 159/106, O2 saturation 93% on room air. EYES: Conjunctivae and lids normal. ENT: Oropharynx clear. NECK: Without obvious mass or thyroid enlargement. RESPIRATORY: Normal effort, clear to anterior auscultation. CARDIOVASCULAR: Regular rate and rhythm. EXTREMITIES: Without edema. ABDOMEN: Positive bowel sounds. Guarding in the epigastrium and left abdomen. No rebound, no obvious organomegaly or masses are appreciated. RECTAL: Not done. LYMPH: No obvious neck or groin nodes. MUSCULOSKELETAL: Digits and nails normal. SKIN: Without obvious rash or induration anteriorly. NEUROLOGIC: Cranial nerves intact. Sensation intact. PSYCHIATRIC: Recent and remote memory good. Insight and judgment good. LABORATORY DATA: CBC on admission with elevated white count of 18. PT, PTT was okay. CMP on admission: Sodium 134, CO2 23. LFTs were elevated on admission, total bili 1.1, AST 53, ALT 108, alk phos 165, those are somewhat better. The patient did have an elevated lactic acid on admission, 2.01. IMPRESSION AND PLAN: 1. Acute pancreatitis, likely from ethanol. I told the patient I recommended complete abstinence. Lipase is worsening. The patient's subsequent urine output about 7 hours ago. It is very important to get adequate perfusion of the pancreas, otherwise you can get significant worsening of the pancreatitis. I discussed with the nurse need strict I & O and minimum of 40-50 mL/hour urine output. We will give 1 liter bolus of lactated Ringer's and increase the rate to 250 an hour. 2. Epigastric pain secondary to the pancreatitis. 3. Esophageal varices, elective EGD. 4. Thickened duodenum, likely from pancreatitis but can evaluate on elective EGD. 5. Elevated WBC, likely from pancreatitis. 6. Elevated lactic acid. No evidence of ischemic bowel on CT, likely from volume depletion. Follow. 7. Elevated LFTs, improved, likely from alcohol. MTDD
[2016-11-19 15:51] VITALS: BP 154/91; PULSE 77; TEMP 36.8; O2SAT 90
[2016-11-19 16:00] VITALS: O2SAT 90
[2016-11-19 16:50] VITALS: BP 158/90; PULSE 83
--- NOTE | 2016-11-19 17:17 | Family Medicine Progress Note ---
Progress Note Date of Service Nov 19, 2016. Subjective Pt evaluation today including: conversation w/ patient, physical exam, chart review, lab review The patient was seen and examined at bedside. No acute overnight events. Patient reports continued epigastric pain. On history, patient admits to drinking around 8 beers per day, diet is minimal, has the occasional sandwich. Patient is resting comfortably in bed. Eating and urinating well. No signs of agitation. No confusion. Patient recognized me from 's Cardiology visit from several months prior. Plan of care was described to the patient and all questions were answered. Constitutional: No chills, No fever, No sweats, No weight loss Respiratory: No cough, No shortness of breath, No sputum, No wheezing Cardiovascular: No chest pain Objective Physical Exam General Appearance: WD/WN, no apparent distress, + obese Respiratory/Chest: chest non-tender, lungs clear, normal breath sounds, no respiratory distress Cardiovascular: regular rate, rhythm, no edema, no gallop, no JVD, + pertinent finding (possible systolic ejection murmur) Abdomen: + pertinent finding (obese, difficulty to palpate liver and spleen due to obesity, tender to palpation in the epigastric region. ) Extremities: non-tender, no pedal edema, no calf tenderness Neurologic/Psychiatric: alert, normal mood/affect, oriented x 3 Assessment and Plan 76M with a PMHx of alcohol use presenting to us with a 3 week history of epigastric pain that acutely worsened the previous night. According to pt he drinks approx [address] Scan showed signs of acute pancreatitis. Lipase >4000 on admission. GI (Dr. Salcido) was consulted and his recommendations are incorporated below. Patient is to be placed on NPO and IVF. Lipase on hospital Day #1 continue to be elevated. Acute pancreatitis most likely secondary to EtOH - Pt reports improvement in abdominal pain but still with pain. Remains tachycardic. Patient denies vomiting or melena or BRBPR since admission. - Lipase 5000<--4000, continue to monitor. - GI on board; NPO, Lactated Ringer 125mls/hr. - F/u lipase tomorrow. 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 No clinical signs of esophageal bleeding ( hematemesis, decreasing hemoglobin). - c/w Propranolol 80 mg, Lasix 40 mg, Spironolactone 50 mg - GI on board: Elective upper endoscopy, likely as outpatient. Chronic Alcoholism - No clinical signs of withdrawal at present, no tremors, AAOx3. s/p Banana bag in the ER. - Ativan PRN as per hospital protocol (dosing based on AWSS score). - c/w IV Thiamine supplementation 200mg IV daily. - discussed complete abstinence Systolic murmur Echocardiogram: * The left ventricle is hyperdynamic. * No regional wall motion abnormalities noted. * Ejection Fraction = >70 %. * There is moderate concentric left ventricular hypertrophy. * Aortic valve sclerosis moderate, without significant aortic valvular stenosis. GERD- c/w pantoprazole 40 mg HTN - 158/90 - Increase Amlodipine to 10mg daily. - c/w Lisinopril 20mg daily. DM2 - Glipizide and metformin held - Glycemic consult in place, BS better controlled. HLD- hold atorvastatin because of elevated LFT BPH- c/w tamsulosin 0.4 mg PO QHS and finasteride 5 mg PO daily. Depression- c/w effexor 37.5 mg daily. DVT Proph: Lovenox SQ, SCDs Dispo: FULL CODE, lives with . Resident Involvement: Resident Care Provided Care Provided: Adult Hospital Medicine Reviewed: Pt Seen/Exam by Me History pain better since last night but still with a lot of pain Constitutional: denies: fever Respiratory: negative: short of breath Cardiovascular: denies chest pain Gastrointestinal/Abdominal: positive: abdominal pain General Appearance: mild distress Respiratory: lungs clear, no respiratory distress Cardiovascular: regular rate, rhythm Gastrointestinal: distended, tenderness (all across the abdomen), other ( tympanic bowel sounds) Neurologic/Psychiatric: alert, oriented x 3 Skin Characteristics: warm/dry Assessment/Plan I have reviewed the medical record and performed a history and physical examination of this patient today. I have discussed the case with Dr. Morrison. The above note reflects my findings, conclusions, and recommendations.
[2016-11-19 20:46] VITALS: BP 156/91; PULSE 83; TEMP 36.9; O2SAT 90
[2016-11-19] MEDS ORDERED: ATORVASTATIN 20 MG TAB PO SCH (21:00)
[2016-11-19] MEDS: MoRPHine SULFATE 2 MG/ML CARP IV PRN (21:01)
[2016-11-19] MEDS: TAMSULOSIN HCL 0.4 MG CAP PO SCH (21:02)
[2016-11-19 23:12] VITALS: BP 139/80; PULSE 85; TEMP 36.9; O2SAT 91
[2016-11-20] MEDS: MoRPHine SULFATE 4 MG/ML 1 ML CARP\\VIAL IV PRN ×3 (01:24→14:35)
[2016-11-20] MEDS: LACTATED RINGER'S 1000ML 1,000 ML IV SCH ×3 (02:31→22:18)
[2016-11-20 05:37] LABS: BASO % 0.1 %; BASO ABS # 0.01 K/uL (0-0.2); COMPLETE YES; EOS % 0.3 %; HEMATOCRIT 39.4 % (42-52); IG% 0.4 %; LYMPH % 19.7 %; LYMPH ABS # 3.28 K/uL (1.2-3.4); MEAN CELL VOLUME 82.4 fL (80-100); MEAN CORPUSCULAR HEMOGLOBIN 27.6 pg (25-34); MEAN CORPUSCULAR HGB CONC 33.5 g/dl (32-36); MEAN PLATELET VOLUME 10.1 fL (7.4-10.4); MONO % 7.8 %; NEUT % 71.7 %; PLATELET COUNT 187 K/uL (130-400); RED BLOOD COUNT 4.78 M/uL (4.7-6.1); WHITE BLOOD COUNT 16.61 K/uL (4.8-10.8)
[2016-11-20] MEDS: INSULIN ASPART 100 UNITS/ML 3 ML PEN SC SCH ×4 (06:00→18:00)
[2016-11-20 06:14] LABS: ALB/GLOB RATIO 0.7 (0.9-2); BUN/CREATININE RATIO 19.1 (10-20); CALCIUM 8.8 mg/dl (8.5-10.1); CREATININE 0.9 mg/dl (0.60-1.40); POTASSIUM 4.2 mmol/L (3.5-5.1)
[2016-11-20 08:10] VITALS: BP 160/102; PULSE 95; TEMP 36.7; O2SAT 91
[2016-11-20 08:18] VITALS: O2SAT 91
[2016-11-20] MEDS: THIAMINE HCL INJ 200 MG in SODIUM CHLORIDE 0.9% 50ML 50 ML IV SCH (08:23)
[2016-11-20] MEDS: AMLODIPINE BESYLATE 5 MG TAB PO SCH (08:24)
[2016-11-20] MEDS: FUROSEMIDE 40 MG TAB PO SCH (08:24)
[2016-11-20] MEDS: VENLAFAXINE HCL 37.5 MG TAB PO SCH ×2 (08:24→21:57)
[2016-11-20] MEDS: PROPRANOLOL HCL 80 MG TAB PO SCH (08:24)
[2016-11-20] MEDS: SPIRONOLACTONE 25 MG TAB PO SCH (08:24)
[2016-11-20] MEDS: ENOXAPARIN 30 MG/0.3 ML SYR SQ SCH (08:25)
[2016-11-20] MEDS: PANTOprazole INJ 40 MG in SYRINGE 0 ML IV SCH (08:25)
[2016-11-20] MEDS: LISINOPRIL 20 MG TAB PO SCH (08:25)
[2016-11-20] MEDS: FINASTERIDE 5 MG TAB PO SCH (08:25)
[2016-11-20] MEDS ORDERED: THIAMINE HCL 100 MG/ML 2 ML VIAL IM SCH (09:00)
--- NOTE | 2016-11-20 09:13 | Gastroenterology Progress Note ---
Progress Note Date of Service: Nov 20, 2016 Subjective Pt evaluation today including: conversation w/ patient, physical exam, chart review, lab review, review of studies, review of inpatient medication list CC f/u pancreatitis HPI Pt states abd pain is better but still needing pain meds. NO n/v. No stools. Review of Systems Respiratory: No shortness of breath Cardiac: No chest pain Medications Current Inpatient Medications Medications (Trade) Dose Ordered Sig/Sandra Route Start Time Stop Time Status Last Admin Dose Admin Ioversol (Optiray 320) 100 ml UD PRN IV 11/18/16 21:00 11/22/16 20:59 Ondansetron HCl 4 mg 4 mg Q6H PRN IV 11/18/16 22:30 12/18/16 22:29 11/18/16 23:39 4 MG Lactated Ringer's (Lr 1000ml) 1,000 ml @ 125 mls/hr Q8H IV 11/18/16 23:15 11/20/16 02:31 125 MLS/HR Lorazepam (Ativan Inj) 1 mg Q1H PRN IV 11/19/16 00:30 12/19/16 00:29 Morphine Sulfate (MoRPHine SULFATE INJ) 2 mg Q4 PRN IV 11/19/16 00:45 12/03/16 00:44 11/19/16 21:01 2 MG Morphine Sulfate 4 mg 4 mg Q4 PRN IV 11/19/16 00:45 12/03/16 00:44 11/20/16 01:24 4 MG Pantoprazole Sodium/Syringe (Protonix Inj/ Syringe) 10 ml @ 5 mls/min DAILY@11 IV 11/19/16 11:00 12/19/16 10:59 11/20/16 08:25 5 MLS/MIN Finasteride (Proscar Tab) 5 mg DAILY PO 11/19/16 09:00 12/19/16 08:59 11/20/16 08:25 5 MG Lisinopril (Zestril Tab) 20 mg DAILY PO 11/19/16 09:00 12/19/16 08:59 11/20/16 08:25 20 MG Tamsulosin HCl (Flomax Cap) 0.4 mg HS PO 11/19/16 21:00 12/19/16 20:59 11/19/16 21:02 0.4 MG Venlafaxine HCl 37.5 mg 37.5 mg BID PO 11/19/16 09:00 12/19/16 08:59 11/20/16 08:24 37.5 MG Lorazepam/Syringe (Ativan Inj/ Syringe) 1 ml @ 1 mls/min Q1H PRN IV 11/19/16 01:30 12/19/16 01:29 11/20/16 03:34 1 MLS/MIN Propranolol HCl (Inderal Tab) 80 mg QAM PO 11/19/16 09:00 12/19/16 08:59 11/20/16 08:24 80 MG Furosemide (Lasix Tab) 40 mg QAM PO 11/19/16 09:00 12/19/16 08:59 11/20/16 08:24 40 MG Spironolactone (Aldactone Tab) 50 mg QAM PO 11/19/16 09:00 12/19/16 08:59 11/20/16 08:24 50 MG Glucose (Glucose 40% Gel) 15-30 GRAMS 15 GRAMS... UD PRN PO 11/19/16 03:15 12/19/16 03:14 Glucose (Glucose Chew Tab) 4-8 Tablets 4 Tabl... UD PRN PO 11/19/16 03:15 12/19/16 03:14 Dextrose (Dextrose 50% 50ML Syringe) 25-50ML OF 50% DW IV FOR... UD PRN IV 11/19/16 03:15 12/19/16 03:14 Glucagon (Glucagon Inj) 1 mg UD PRN SQ 11/19/16 03:15 12/19/16 03:14 Insulin Aspart SLIDING SCALE G... Q6 SC 11/19/16 12:00 12/19/16 11:59 11/19/16 06:29 1 UNITS Thiamine HCl/ Sodium Chloride (Vitamin B-1 Inj/ Nss 50ml) 52 ml @ 208 mls/hr QAM IV 11/20/16 09:00 12/20/16 08:59 11/20/16 08:23 208 MLS/HR Enoxaparin Sodium (Lovenox Inj) 30 mg QAM SQ 11/20/16 09:00 12/20/16 08:59 11/20/16 08:25 30 MG Amlodipine Besylate (Norvasc Tab) 10 mg QAM PO 11/20/16 09:00 12/20/16 08:59 11/20/16 08:24 10 MG Objective Vital Signs Date Time Temp Pulse Resp B/P Pulse Ox O2 Delivery O2 Flow Rate FiO2 11/20/16 08:18 91 Room Air 11/20/16 08:10 36.7 95 18 160/102 91 Room Air 11/20/16 00:00 Room Air 11/19/16 23:12 36.9 85 18 139/80 91 Room Air 11/19/16 20:46 36.9 83 18 156/91 90 Room Air 11/19/16 16:50 83 158/90 11/19/16 16:00 90 Room Air 11/19/16 15:51 36.8 77 18 154/91 90 Room Air 11/19/16 11:48 Room Air Physical Exam General Appearance: WD/WN, no apparent distress Respiratory/Chest: lungs clear, no respiratory distress Cardiovascular: no murmur Abdomen: normal bowel sounds, soft, no organomegaly, + tenderness (epigastric mild guarding no rebound) Laboratory Results Last 24 Hours Test 11/19/16 09:40 11/19/16 11:39 11/19/16 16:07 11/20/16 00:00 Lactic Acid Level 2.0 mmol/L Bedside Glucose 161 mg/dl 123 mg/dl 94 mg/dl Test 11/20/16 05:24 11/20/16 06:03 White Blood Count 16.61 K/uL Red Blood Count 4.78 M/uL Hemoglobin 13.2 g/dL Hematocrit 39.4 % Mean Corpuscular Volume 82.4 fL Mean Corpuscular Hemoglobin 27.6 pg Mean Corpuscular Hemoglobin Concent 33.5 g/dl Platelet Count 187 K/uL Mean Platelet Volume 10.1 fL Neutrophils (%) (Auto) 71.7 % Lymphocytes (%) (Auto) 19.7 % Monocytes (%) (Auto) 7.8 % Eosinophils (%) (Auto) 0.3 % Basophils (%) (Auto) 0.1 % Neutrophils # (Auto) 11.91 K/uL Lymphocytes # (Auto) 3.28 K/uL Monocytes # (Auto) 1.30 K/uL Eosinophils # (Auto) 0.05 K/uL Basophils # (Auto) 0.01 K/uL RDW Standard Deviation 46.1 fL RDW Coefficient of Variation 15.2 % Immature Granulocyte % (Auto) 0.4 % Immature Granulocyte # (Auto) 0.06 K/uL Sodium Level 136 mmol/L Potassium Level 4.2 mmol/L Chloride Level 100 mmol/L Carbon Dioxide Level 27 mmol/L Anion Gap 9.0 mmol/L Blood Urea Nitrogen 17 mg/dl Creatinine 0.90 mg/dl Est Creatinine Clear Calc Drug Dose 80.6 ml/min Estimated GFR () 97.2 Estimated GFR (Non- 83.8 BUN/Creatinine Ratio 19.1 Random Glucose 107 mg/dl Lactic Acid Level 1.1 mmol/L Calcium Level 8.8 mg/dl Total Bilirubin 1.4 mg/dl Aspartate Amino Transf (AST/SGOT) 30 U/L Alanine Aminotransferase (ALT/SGPT) 57 U/L Alkaline Phosphatase 106 U/L Total Protein 7.1 gm/dl Albumin 3.0 gm/dl Globulin 4.1 gm/dl Albumin/Globulin Ratio 0.7 Lipase 1355 U/L Chemistry Specimen Hemolysis Bedside Glucose 121 mg/dl Assessment and Plan acute pancreatitsi--likely from ETOH and told patient recommend complete abstinence, good urine output and LR at 125 ml/hour now, clinically improved but still significant pain and needing pain meds so continue npo another 24 hours and reassess epigastric pain--secondary to pancrettis--better esophageal varices---elective EGD--end of hospitalization or outpt thickened duodenum--likely from pancrrritisi but can evaluate on elective EGD elevated WBC--likely from pancrraritisi--improved elevated lactic acid no evidence of ischemic bowel on CT--likely from volume depleation--resolved elevated LFTS--improved--likely from ETOH
[2016-11-20 09:30] VITALS: BP 133/77; PULSE 89
--- NOTE | 2016-11-20 09:31 | Clinical Documentation Query ---
CLINICAL DOCUMENTATION QUERY Dr. FELICIANO, In your clinical opinion is this patient being managed for: ( x ) SIRS in the setting of a non-infectious process--acute pancreatitis ( ) Other explanation of clinical findings (Please Explain) ( ) Unable to determine (Please Define) ( ) Need to Discuss ( ) Not Agree The medical record reflects the following clinical findings, treatment, and risk factors. Clinical Indicators: WBC 18.03, HR123, anion gap 12 Treatment: IV fluids with bolus, daily CBC and PRP's Risk Factors: acute pancreatitis, alcohol abuse, DM SIRS Criteria Temperature >38C or <36C Heart Rate >90/min Respiratory Rate >20/min or PaCO2 <32 mm Hg WBC >12,000/mm3 or <4000/mm3 or >10% immature bands Please clarify and document your clinical opinion in the progress notes and discharge summary. Terms such as "probable", "suspected", "likely", "questionable", "possible", or "still to be ruled out" are acceptable. IF IN AGREEMENT, YOU MUST DOCUMENT ABOVE DIAGNOSTIC STATEMENT IN DAILY PROGRESS NOTES AND DISCHARGE SUMMARY. This document is not part of the patient's record. Thank You, Sylvia Leiva RN [phone]
--- NOTE | 2016-11-20 09:33 | Clinical Documentation Query ---
CLINICAL DOCUMENTATION QUERY Dr. PALACIO, In your clinical opinion is this patient being managed for: (x) SIRS in the setting of a non-infectious process--acute pancreatitis ( ) Other explanation of clinical findings (Please Explain) ( ) Unable to determine (Please Define) ( ) Need to Discuss ( ) Not Agree The medical record reflects the following clinical findings, treatment, and risk factors. Clinical Indicators: WBC 18.03, HR123, anion gap 12 Treatment: IV fluids with bolus, daily CBC and PRP's Risk Factors: acute pancreatitis, alcohol abuse, DM SIRS Criteria Temperature >38C or <36C Heart Rate >90/min Respiratory Rate >20/min or PaCO2 <32 mm Hg WBC >12,000/mm3 or <4000/mm3 or >10% immature bands Please clarify and document your clinical opinion in the progress notes and discharge summary. Terms such as "probable", "suspected", "likely", "questionable", "possible", or "still to be ruled out" are acceptable. IF IN AGREEMENT, YOU MUST DOCUMENT ABOVE DIAGNOSTIC STATEMENT IN DAILY PROGRESS NOTES AND DISCHARGE SUMMARY. This document is not part of the patient's record. Thank You, Sylvia Leiva RN [phone]
[2016-11-20 15:36] VITALS: BP 155/89; PULSE 73; TEMP 36.7; O2SAT 94
[2016-11-20 16:10] VITALS: O2SAT 94
--- NOTE | 2016-11-20 18:51 | Family Medicine Progress Note ---
Progress Note Date of Service Nov 20, 2016. Subjective Pt evaluation today including: conversation w/ patient, physical exam, chart review, lab review The patient was seen and examined at bedside. Pt pulled out IV overnight and was found walking in hallway, received 1 dose of Ativan overnight which apparently worsened his confusion. When examined at bedside the patient didn't realize he was in the hospital, but was oriented to person, place and time. Patient states that is not in any pain at the moment. Heartburn has improved. Constitutional: No chills, No fever, No sweats Respiratory: No cough, No shortness of breath, No sputum, No wheezing Cardiovascular: No chest pain Abdomen: No diarrhea, No nausea, No pain, No vomiting Musculoskeletal: No joint pain Male : No dysuria Objective Physical Exam General Appearance: WD/WN, no apparent distress, + obese Respiratory/Chest: chest non-tender, lungs clear, normal breath sounds, no respiratory distress, no accessory muscle use Cardiovascular: regular rate, rhythm, no edema, no gallop, no JVD, no murmur Abdomen: normal bowel sounds, non tender, soft, no organomegaly Neurologic/Psychiatric: alert, normal mood/affect, oriented x 3, + pertinent finding (Patient is oriented to person place and time but after a long conversation he stated that he didn't realize that he was in the hospital. The patient remembers meeting me from the previous day. ) Assessment and Plan 76M with a PMHx of alcohol use presenting to us with a 3 week history of epigastric pain that acutely worsened the previous night. According to pt he drinks approx [address] Scan showed signs of acute pancreatitis. Lipase >4000 on admission. GI (Dr. Salcido) was consulted and his recommendations are incorporated below. Patient is to be placed on NPO and IVF. Lipase is trending down. SIRS in the setting of a non-infectious process--acute pancreatitis - Pt was tachycardic on admission with possible confabulation and AMS. - IVF resuscitation LR 125mls/hr. Acute pancreatitis most likely secondary to EtOH - VSS, no clinical complaints, no vomiting. - Lipase 1000<--5000<--4000, continue to monitor. - GI on board; c/w NPO and Lactated Ringer 125mls/hr. - F/u lipase tomorrow. Confusion, possible Wernicke's from Chronic Alcoholism - Pt shows beginning of confabulation. No clinical signs of withdrawal at present, no tremors, AAOx3. Patient is getting up and walking around the halls. Patient was put on 1 to 1 observation. - Ativan PRN as per hospital protocol (dosing based on AWSS score). - c/w IV Thiamine supplementation 200mg IV daily. - discussed complete abstinence from alcohol. 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 No clinical signs of esophageal bleeding ( hematemesis, decreasing hemoglobin). - c/w Propranolol 80 mg, Lasix 40 mg, Spironolactone 50 mg - GI on board: Elective upper endoscopy, likely as outpatient or end of hospital stay. Systolic murmur- Echocardiogram: grossly normal. GERD- c/w pantoprazole 40 mg HTN - 139/80 - c/w Amlodipine to 10mg daily. - c/w Lisinopril 20mg daily. DM2 - Glipizide and metformin held - Glycemic consult in place, BS better controlled. Elevated LFT - Hep B and C negative. HLD- hold atorvastatin because of elevated LFT. BPH- c/w tamsulosin 0.4 mg PO QHS and finasteride 5 mg PO daily. Depression- c/w effexor 37.5 mg daily. DVT Proph: Lovenox SQ, SCDs Dispo: FULL CODE, lives with . Resident Involvement: Resident Care Provided Care Provided: Adult Hospital Medicine Reviewed: Pt Seen/Exam by Me History abdomen felt better confused Constitutional: denies: fever Respiratory: negative: short of breath Cardiovascular: denies chest pain Gastrointestinal/Abdominal: positive: abdominal pain General Appearance: no apparent distress Respiratory: lungs clear, no respiratory distress Cardiovascular: regular rate, rhythm Gastrointestinal: normal bowel sounds, soft, tenderness, other (distension resolved) Neurologic/Psychiatric: alert, other (confused) Skin Characteristics: warm/dry Assessment/Plan I have reviewed the medical record and performed a history and physical examination of this patient today. I have discussed the case with Dr. Morrison. The above note reflects my findings, conclusions, and recommendations.
[2016-11-20] MEDS: TAMSULOSIN HCL 0.4 MG CAP PO SCH (21:57)
[2016-11-20 23:34] VITALS: BP 151/94; PULSE 89; TEMP 36.8; O2SAT 90
[2016-11-21 01:01] VITALS: O2SAT 94
[2016-11-21] MEDS: MoRPHine SULFATE 4 MG/ML 1 ML CARP\\VIAL IV PRN ×2 (02:15→21:59)
[2016-11-21 02:35] VITALS: O2SAT 92
[2016-11-21] MEDS: LACTATED RINGER'S 1000ML 1,000 ML IV SCH ×3 (04:04→20:13)
[2016-11-21] MEDS: INSULIN ASPART 100 UNITS/ML 3 ML PEN SC SCH ×5 (05:56→23:53)
[2016-11-21 06:49] VITALS: BP 149/82; PULSE 86; TEMP 36.6; O2SAT 91
[2016-11-21 07:33] LABS: HEMATOCRIT 37.2 % (42-52); MEAN CELL VOLUME 81.9 fL (80-100); MEAN CORPUSCULAR HEMOGLOBIN 27.3 pg (25-34); MEAN CORPUSCULAR HGB CONC 33.3 g/dl (32-36); MEAN PLATELET VOLUME 9.9 fL (7.4-10.4); PLATELET COUNT 153 K/uL (130-400); RED BLOOD COUNT 4.54 M/uL (4.7-6.1)
[2016-11-21] MEDS: FINASTERIDE 5 MG TAB PO SCH (08:09)
[2016-11-21] MEDS: AMLODIPINE BESYLATE 5 MG TAB PO SCH (08:10)
[2016-11-21] MEDS: PROPRANOLOL HCL 80 MG TAB PO SCH (08:10)
[2016-11-21] MEDS: VENLAFAXINE HCL 37.5 MG TAB PO SCH ×2 (08:10→20:08)
[2016-11-21 08:11] LABS: BUN/CREATININE RATIO 19.3 (10-20); CALCIUM 8.8 mg/dl (8.5-10.1); CREATININE 0.8 mg/dl (0.60-1.40); POTASSIUM 3.8 mmol/L (3.5-5.1)
[2016-11-21] MEDS: LISINOPRIL 20 MG TAB PO SCH (08:11)
[2016-11-21] MEDS: FUROSEMIDE 40 MG TAB PO SCH (08:11)
[2016-11-21] MEDS: SPIRONOLACTONE 25 MG TAB PO SCH (08:11)
[2016-11-21] MEDS: ENOXAPARIN 30 MG/0.3 ML SYR SQ SCH (08:12)
[2016-11-21 08:14] LABS: ALB/GLOB RATIO 0.6 (0.9-2)
[2016-11-21] MEDS: THIAMINE HCL INJ 200 MG in SODIUM CHLORIDE 0.9% 50ML 50 ML IV SCH (08:16)
[2016-11-21] MEDS: PANTOprazole INJ 40 MG in SYRINGE 0 ML IV SCH (12:00)
--- NOTE | 2016-11-21 13:02 | Family Medicine Progress Note ---
Progress Note Date of Service Nov 21, 2016. Subjective Pt evaluation today including: conversation w/ patient, physical exam, chart review, lab review Voiding: no voiding problems Patient was seen at the bedside. No acute events overnight. Patient complains of generalized abdominal pain and rates it as 4/10; however it has improved since yesterday. Denies nausea, vomiting, diarrhea, constipation, SOB, chest pain, GI bleeding, or any other additional complaints. Constitutional: No fever, No weight loss Respiratory: No cough, No shortness of breath, No sputum, No wheezing Cardiovascular: No chest pain, No edema Abdomen: + pain (generalized pain improved since yesterday), No constipation , No diarrhea, No nausea, No vomiting Musculoskeletal: No muscle pain Skin: No rash Medications Medications Administered Medications (Trade) Dose Ordered Sig/Sandra Route Start Time Stop Time Status Last Admin Dose Admin Sodium Chloride (Nss 1000ml) 1,000 ml @ 999 mls/hr Q1H1M IV 11/18/16 20:30 11/18/16 23:10 DC 11/18/16 22:06 999 MLS/HR Morphine Sulfate (MoRPHine SULFATE INJ) 4 mg NOW STAT IV 11/18/16 20:20 11/18/16 20:24 DC 11/18/16 20:48 4 MG Morphine Sulfate 3 mg 3 mg NOW STAT IV 11/18/16 21:44 11/18/16 21:45 DC 11/18/16 22:03 3 MG Sodium Chloride (Nss 1000ml) 1,000 ml @ 250 mls/hr Q4H ONCE IV 11/18/16 22:00 11/18/16 23:11 DC 11/18/16 22:00 250 MLS/HR Ondansetron HCl 4 mg 4 mg Q6H PRN IV 11/18/16 22:30 12/18/16 22:29 11/18/16 23:39 4 MG Lactated Ringer's (Lr 1000ml) 1,000 ml @ 125 mls/hr Q8H IV 11/18/16 23:15 12/18/16 23:14 11/21/16 12:21 125 MLS/HR Hydromorphone HCl 2 mg 2 mg NOW STAT IV 11/19/16 00:13 11/19/16 00:14 DC 11/19/16 00:23 2 MG Multivitamins/ Thiamine HCl/ Folic Acid/Sodium Chloride (Mvi Infusion Inj/Vitamin B-1 Inj/Folvite Inj/ Nss 1000ml) 1,011.2 ml @ 500 mls/ hr Q2H2M ONCE IV 11/19/16 00:29 11/19/16 02:30 DC 11/19/16 01:36 500 MLS/HR Morphine Sulfate (MoRPHine SULFATE INJ) 2 mg Q4 PRN IV 11/19/16 00:45 12/03/16 00:44 11/19/16 21:01 2 MG Morphine Sulfate 4 mg 4 mg Q4 PRN IV 11/19/16 00:45 12/03/16 00:44 11/21/16 02:15 4 MG Pantoprazole Sodium/Syringe (Protonix Inj/ Syringe) 10 ml @ 5 mls/min DAILY@11 IV 11/19/16 11:00 12/19/16 10:59 11/21/16 12:00 5 MLS/MIN Finasteride (Proscar Tab) 5 mg DAILY PO 11/19/16 09:00 12/19/16 08:59 11/21/16 08:09 5 MG Lisinopril (Zestril Tab) 20 mg DAILY PO 11/19/16 09:00 12/19/16 08:59 11/21/16 08:11 20 MG Tamsulosin HCl (Flomax Cap) 0.4 mg HS PO 11/19/16 21:00 12/19/16 20:59 11/20/16 21:57 0.4 MG Venlafaxine HCl 37.5 mg 37.5 mg BID PO 11/19/16 09:00 12/19/16 08:59 11/21/16 08:10 37.5 MG Lorazepam/Syringe (Ativan Inj/ Syringe) 1 ml @ 1 mls/min Q1H PRN IV 11/19/16 01:30 12/19/16 01:29 11/20/16 03:34 1 MLS/MIN Amlodipine Besylate (Norvasc Tab) 5 mg QAM PO 11/19/16 09:00 11/19/16 17:18 DC 11/19/16 08:47 5 MG Propranolol HCl (Inderal Tab) 80 mg QAM PO 11/19/16 09:00 12/19/16 08:59 11/21/16 08:10 80 MG Furosemide (Lasix Tab) 40 mg QAM PO 11/19/16 09:00 12/19/16 08:59 11/21/16 08:11 40 MG Spironolactone (Aldactone Tab) 50 mg QAM PO 11/19/16 09:00 12/19/16 08:59 11/21/16 08:11 50 MG Insulin Aspart SLIDING SCALE G... Q6 SC 11/19/16 12:00 12/19/16 11:59 11/19/16 06:29 1 UNITS Lactated Ringer's 1,000 ml @ 999 mls/hr Q1H1M IV 11/19/16 09:15 11/19/16 10:15 DC 11/19/16 09:24 999 MLS/HR Thiamine HCl 200 mg/Sodium Chloride 52 ml @ 208 mls/hr TODAY@1130 ONCE IV 11/19/16 11:30 11/19/16 11:44 DC 11/19/16 11:20 208 MLS/HR Thiamine HCl/ Sodium Chloride (Vitamin B-1 Inj/ Nss 50ml) 52 ml @ 208 mls/hr QAM IV 11/20/16 09:00 12/20/16 08:59 11/21/16 08:16 208 MLS/HR Enoxaparin Sodium (Lovenox Inj) 30 mg QAM SQ 11/20/16 09:00 12/20/16 08:59 11/21/16 08:12 30 MG Amlodipine Besylate (Norvasc Tab) 10 mg QAM PO 11/20/16 09:00 12/20/16 08:59 11/21/16 08:10 10 MG Objective Vital Signs Date Time Temp Pulse Resp B/P Pulse Ox O2 Delivery O2 Flow Rate FiO2 11/21/16 08:00 Room Air 11/21/16 06:49 36.6 86 20 149/82 91 Room Air 11/21/16 02:35 92 Room Air 11/21/16 01:01 94 Nasal Cannula 2.0 11/21/16 00:13 Room Air 11/20/16 23:34 36.8 89 22 151/94 90 Room Air 11/20/16 16:10 94 Nasal Cannula 2.0 11/20/16 15:36 36.7 73 20 155/89 94 Nasal Cannula 2.0 Physical Exam General Appearance: no apparent distress, + obese Neck: supple, trachea midline Respiratory/Chest: chest non-tender, lungs clear, normal breath sounds, no respiratory distress Cardiovascular: regular rate, rhythm, no edema Abdomen: normal bowel sounds, soft, + distended, + tenderness (complains of pain on all quadrants on deep palpation) Extremities: non-tender, no pedal edema Neurologic/Psychiatric: alert, normal mood/affect, oriented x 3 Skin: normal color, warm/dry, no rash Laboratory Results Results Past 24 Hours Test 11/20/16 18:16 11/20/16 23:58 11/21/16 05:56 11/21/16 07:20 Range/Units Bedside Glucose 105 96 104 70-99 mg/dl White Blood Count 11.70 4.8-10.8 K/uL Red Blood Count 4.54 4.7-6.1 M/uL Hemoglobin 12.4 14.0-18.0 g/dL Hematocrit 37.2 42-52 % Mean Corpuscular Volume 81.9 80-100 fL Mean Corpuscular Hemoglobin 27.3 25-34 pg Mean Corpuscular Hemoglobin Concent 33.3 32-36 g/dl RDW Standard Deviation 44.9 36.4-46.3 fL RDW Coefficient of Variation 15.0 11.5-14.5 % Platelet Count 153 130-400 K/uL Mean Platelet Volume 9.9 7.4-10.4 fL Sodium Level 135 136-145 mmol/L Potassium Level 3.8 3.5-5.1 mmol/L Chloride Level 100 98-107 mmol/L Carbon Dioxide Level 26 21-32 mmol/L Anion Gap 9.0 3-11 mmol/L Blood Urea Nitrogen 15 7-18 mg/dl Creatinine 0.80 0.60-1.40 mg/dl Est Creatinine Clear Calc Drug Dose 90.7 ml/min Estimated GFR () 102.0 Estimated GFR (Non- 88.0 BUN/Creatinine Ratio 19.3 10-20 Random Glucose 96 70-99 mg/dl Calcium Level 8.8 8.5-10.1 mg/dl Total Bilirubin 1.4 0.2-1 mg/dl Aspartate Amino Transf (AST/SGOT) 30 15-37 U/L Alanine Aminotransferase (ALT/SGPT) 45 12-78 U/L Alkaline Phosphatase 128 45-117 U/L Total Protein 7.1 6.4-8.2 gm/dl Albumin 2.7 3.4-5.0 gm/dl Globulin 4.4 2.5-4.0 gm/dl Albumin/Globulin Ratio 0.6 0.9-2 Lipase 576 73-393 U/L Test 11/21/16 11:57 Range/Units Bedside Glucose 129 70-99 mg/dl Assessment and Plan 76M with a PMHx of alcohol use presenting to us with a 3 week history of epigastric pain that acutely worsened the previous night. According to pt he drinks approx [address] Scan showed signs of acute pancreatitis. Lipase >4000 on admission. GI (Dr. Salcido) was consulted and his recommendations are incorporated below. Patient is currently on IVF and continued to be NPO. Lipase is trending down. 1. SIRS in the setting of a non-infectious process--acute pancreatitis - Pt was tachycardic on admission with possible confabulation and AMS. - IVF resuscitation LR 125mls/hr. 2. Abdominal pain - Most likely secondary to pancreatitis - Chest and Abd X-ray (11/21/16): No active disease in the chest. There is gaseous distention of the small bowel and colon suggesting ileus. There is no radiographic evidence of small bowel obstruction. - Pain worse later in the day - Per GI recommendation if KUB is negative order US to look for ascites. - Order US abd for ascites and will f/u - Continue NPO per GI recommendation 3. Acute pancreatitis most likely secondary to EtOH - Lipase is trending down, 4124---> 5771---> 1355---> 576, continue to monitor. - Per GI recommendation continue to be NPO given worsening of pain - Continue LR 125mls/hr. - F/u CMP and lipase tomorrow. 4. Confusion, possible Wernicke's from Chronic Alcoholism (Resolved) - Patient is AAOx3. No clinical signs of withdrawal at present, no tremors was noted. Patient is getting up and walking around the halls. - Ativan PRN as per hospital protocol (dosing based on AWSS score). - Continue with IV Thiamine supplementation 200mg IV daily. - Discussed complete abstinence from alcohol. 4. 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 No clinical signs of esophageal bleeding - Continue Propranolol 80 mg, Lasix 40 mg, Spironolactone 50 mg - GI on board: Elective upper endoscopy, likely as outpatient or end of hospital stay. 5. Systolic murmur - Echocardiogram: grossly normal. 6. GERD - Continue pantoprazole 40 mg 7. HTN - His today's BP is 149/82 - Continue with Amlodipine to 10mg daily. - Continue with Lisinopril 20mg daily. 8. DM2 - Glipizide and metformin held - Glycemic consult in place, BS better controlled. 9. Elevated LFT - AST and ALT are normal. Alk Phos and Total Bili are elevated (128,1.4) - Hep B and C negative - CMP tomorrow am 10. HLD - Hold atorvastatin because of elevated LFT. 11. BPH - Continue tamsulosin 0.4 mg PO QHS - Finasteride 5 mg PO daily. 12. Depression - Continue Effexor 37.5 mg daily. 13. DVT Proph - Lovenox SQ, SCDs Reviewed: Pt Seen/Exam by Me History felt much better this morning. later in the day - pain worsened Constitutional: denies: fever Respiratory: negative: short of breath Cardiovascular: denies chest pain General Appearance: no apparent distress Respiratory: lungs clear, no respiratory distress Cardiovascular: regular rate, rhythm Gastrointestinal: normal bowel sounds, soft, tenderness (epigastric and diffusely in lower abdomen) Neurologic/Psychiatric: alert, oriented x 3 Assessment/Plan I have reviewed the medical record and performed a history and physical examination of this patient today. I have discussed the case with Dr. Jennings. The above note reflects my findings, conclusions, and recommendations.
[2016-11-21 14:25] VITALS: BP 159/86; PULSE 66; TEMP 36.5; O2SAT 92
[2016-11-21] MEDS: MoRPHine SULFATE 2 MG/ML CARP IV PRN (15:03)
--- NOTE | 2016-11-21 15:28 | Gastroenterology Progress Note ---
Progress Note Date of Service: Nov 21, 2016 Subjective Pt evaluation today including: conversation w/ patient, conversation w/ family (), physical exam, chart review, lab review, review of studies, review of inpatient medication list CC f/u pancreatitis HPI Pt was doing better but had some worsening of abd pain with N/V this pm. No stools. Feels distended. Review of Systems Respiratory: No shortness of breath Cardiac: No chest pain Medications Current Inpatient Medications Medications (Trade) Dose Ordered Sig/Sandra Route Start Time Stop Time Status Last Admin Dose Admin Ioversol (Optiray 320) 100 ml UD PRN IV 11/18/16 21:00 11/22/16 20:59 Ondansetron HCl 4 mg 4 mg Q6H PRN IV 11/18/16 22:30 12/18/16 22:29 11/18/16 23:39 4 MG Lactated Ringer's (Lr 1000ml) 1,000 ml @ 125 mls/hr Q8H IV 11/18/16 23:15 12/18/16 23:14 11/21/16 12:21 125 MLS/HR Lorazepam (Ativan Inj) 1 mg Q1H PRN IV 11/19/16 00:30 12/19/16 00:29 Morphine Sulfate (MoRPHine SULFATE INJ) 2 mg Q4 PRN IV 11/19/16 00:45 12/03/16 00:44 11/21/16 15:03 2 MG Morphine Sulfate 4 mg 4 mg Q4 PRN IV 11/19/16 00:45 12/03/16 00:44 11/21/16 02:15 4 MG Pantoprazole Sodium/Syringe (Protonix Inj/ Syringe) 10 ml @ 5 mls/min DAILY@11 IV 11/19/16 11:00 12/19/16 10:59 11/21/16 12:00 5 MLS/MIN Finasteride (Proscar Tab) 5 mg DAILY PO 11/19/16 09:00 12/19/16 08:59 11/21/16 08:09 5 MG Lisinopril (Zestril Tab) 20 mg DAILY PO 11/19/16 09:00 12/19/16 08:59 11/21/16 08:11 20 MG Tamsulosin HCl (Flomax Cap) 0.4 mg HS PO 11/19/16 21:00 12/19/16 20:59 11/20/16 21:57 0.4 MG Venlafaxine HCl 37.5 mg 37.5 mg BID PO 11/19/16 09:00 12/19/16 08:59 11/21/16 08:10 37.5 MG Lorazepam/Syringe (Ativan Inj/ Syringe) 1 ml @ 1 mls/min Q1H PRN IV 11/19/16 01:30 12/19/16 01:29 11/20/16 03:34 1 MLS/MIN Propranolol HCl (Inderal Tab) 80 mg QAM PO 11/19/16 09:00 12/19/16 08:59 11/21/16 08:10 80 MG Furosemide (Lasix Tab) 40 mg QAM PO 11/19/16 09:00 12/19/16 08:59 11/21/16 08:11 40 MG Spironolactone (Aldactone Tab) 50 mg QAM PO 11/19/16 09:00 12/19/16 08:59 11/21/16 08:11 50 MG Glucose (Glucose 40% Gel) 15-30 GRAMS 15 GRAMS... UD PRN PO 11/19/16 03:15 12/19/16 03:14 Glucose (Glucose Chew Tab) 4-8 Tablets 4 Tabl... UD PRN PO 11/19/16 03:15 12/19/16 03:14 Dextrose (Dextrose 50% 50ML Syringe) 25-50ML OF 50% DW IV FOR... UD PRN IV 11/19/16 03:15 12/19/16 03:14 Glucagon (Glucagon Inj) 1 mg UD PRN SQ 11/19/16 03:15 12/19/16 03:14 Insulin Aspart SLIDING SCALE G... Q6 SC 11/19/16 12:00 12/19/16 11:59 11/19/16 06:29 1 UNITS Thiamine HCl/ Sodium Chloride (Vitamin B-1 Inj/ Nss 50ml) 52 ml @ 208 mls/hr QAM IV 11/20/16 09:00 12/20/16 08:59 11/21/16 08:16 208 MLS/HR Enoxaparin Sodium (Lovenox Inj) 30 mg QAM SQ 11/20/16 09:00 12/20/16 08:59 11/21/16 08:12 30 MG Amlodipine Besylate (Norvasc Tab) 10 mg QAM PO 11/20/16 09:00 12/20/16 08:59 11/21/16 08:10 10 MG Objective Vital Signs Date Time Temp Pulse Resp B/P Pulse Ox O2 Delivery O2 Flow Rate FiO2 11/21/16 14:25 36.5 66 19 159/86 92 Room Air 11/21/16 08:00 Room Air 11/21/16 06:49 36.6 86 20 149/82 91 Room Air 11/21/16 02:35 92 Room Air 11/21/16 01:01 94 Nasal Cannula 2.0 11/21/16 00:13 Room Air 11/20/16 23:34 36.8 89 22 151/94 90 Room Air 11/20/16 16:10 94 Nasal Cannula 2.0 11/20/16 15:36 36.7 73 20 155/89 94 Nasal Cannula 2.0 Physical Exam General Appearance: WD/WN, no apparent distress Respiratory/Chest: lungs clear, no respiratory distress Cardiovascular: no murmur Abdomen: normal bowel sounds, + pertinent finding (mild epigastric guarding, no rebound, is moderately distended and tympanitic. ) Laboratory Results Last 24 Hours Test 11/20/16 18:16 11/20/16 23:58 11/21/16 05:56 11/21/16 07:20 Bedside Glucose 105 mg/dl 96 mg/dl 104 mg/dl White Blood Count 11.70 K/uL Red Blood Count 4.54 M/uL Hemoglobin 12.4 g/dL Hematocrit 37.2 % Mean Corpuscular Volume 81.9 fL Mean Corpuscular Hemoglobin 27.3 pg Mean Corpuscular Hemoglobin Concent 33.3 g/dl RDW Standard Deviation 44.9 fL RDW Coefficient of Variation 15.0 % Platelet Count 153 K/uL Mean Platelet Volume 9.9 fL Sodium Level 135 mmol/L Potassium Level 3.8 mmol/L Chloride Level 100 mmol/L Carbon Dioxide Level 26 mmol/L Anion Gap 9.0 mmol/L Blood Urea Nitrogen 15 mg/dl Creatinine 0.80 mg/dl Est Creatinine Clear Calc Drug Dose 90.7 ml/min Estimated GFR () 102.0 Estimated GFR (Non- 88.0 BUN/Creatinine Ratio 19.3 Random Glucose 96 mg/dl Calcium Level 8.8 mg/dl Total Bilirubin 1.4 mg/dl Aspartate Amino Transf (AST/SGOT) 30 U/L Alanine Aminotransferase (ALT/SGPT) 45 U/L Alkaline Phosphatase 128 U/L Total Protein 7.1 gm/dl Albumin 2.7 gm/dl Globulin 4.4 gm/dl Albumin/Globulin Ratio 0.6 Lipase 576 U/L Test 11/21/16 11:57 Bedside Glucose 129 mg/dl Assessment and Plan acute pancreatitsi--likely from ETOH and told patient recommend complete abstinence, continue NPO for now. even though lipase better his symptoms worlse epigastric pain--secondary to pancrettis---worse today abdominal distension--New---check KUB and is negative do u/s for look for ascites. esophageal varices---elective EGD--end of hospitalization or outpt thickened duodenum--likely from pancrrritisi but can evaluate on elective EGD elevated WBC--likely from pancrraritisi--improved elevated LFTS--improved overall but alk phos slightly worse today----likely from ETOH
[2016-11-21] MEDS: ONDANSETRON INJ 2 MG/ML 2 ML VIAL IV PRN (15:30)
--- NOTE | 2016-11-21 16:04 | DIAGNOSTIC IMAGING REPORT ---
PA CHEST WITH ABDOMINAL SERIES CLINICAL HISTORY: Generalized abdominal pain. Nausea and vomiting. Abdominal distention. FINDINGS: A PA chest radiograph is correlated with chest CT dated 04/14/2007. The examination is degraded by patient rotation. The heart is top normal for projection. There is atherosclerotic calcification of the thoracic and. Chronic elevation of the right hemidiaphragm with right basilar atelectasis is unchanged. No airspace consolidation or pleural effusion is identified. No pneumothorax is seen. The skeletal structures are osteopenic. Degenerative change is noted throughout the thoracic spine. Supine and erect abdominal radiographs are correlated with abdominal CT dated 11/18/16. There is no radiographic evidence of bowel obstruction. There is mild gaseous distention of the small bowel and colon suggesting ileus. No evidence of intraperitoneal free air is seen. Calcified phleboliths and surgical clips are seen in the pelvis. There is lumbosacral spondylosis and scoliosis. The bony pelvis appears intact. IMPRESSION: 1. No active disease in the chest. 2. There is gaseous distention of the small bowel and colon suggesting ileus. There is no radiographic evidence of small bowel obstruction. 3. Additional changes as above. Electronically signed by: Tony Morocho M.D. 11/21/2016 4:03 PM Dictated Date/Time: 11/21/2016 4:00 PM
[2016-11-21] MEDS: TAMSULOSIN HCL 0.4 MG CAP PO SCH (20:08)
[2016-11-22 00:11] VITALS: BP 145/84; PULSE 78; TEMP 36.8; O2SAT 90
[2016-11-22] MEDS: LACTATED RINGER'S 1000ML 1,000 ML IV SCH ×3 (03:49→19:33)
[2016-11-22] MEDS: INSULIN ASPART 100 UNITS/ML 3 ML PEN SC SCH ×4 (06:00→23:53)
[2016-11-22 07:39] LABS: HEMATOCRIT 37.5 % (42-52); MEAN CELL VOLUME 81.5 fL (80-100); MEAN CORPUSCULAR HEMOGLOBIN 27.8 pg (25-34); MEAN CORPUSCULAR HGB CONC 34.1 g/dl (32-36); MEAN PLATELET VOLUME 9.9 fL (7.4-10.4); PLATELET COUNT 166 K/uL (130-400); WHITE BLOOD COUNT 9.64 K/uL (4.8-10.8)
[2016-11-22] MEDS: FINASTERIDE 5 MG TAB PO SCH (07:48)
[2016-11-22] MEDS: VENLAFAXINE HCL 37.5 MG TAB PO SCH ×2 (07:49→19:33)
[2016-11-22] MEDS: SPIRONOLACTONE 25 MG TAB PO SCH (07:49)
[2016-11-22] MEDS: FUROSEMIDE 40 MG TAB PO SCH (07:49)
[2016-11-22] MEDS: PROPRANOLOL HCL 80 MG TAB PO SCH (07:49)
[2016-11-22] MEDS: LISINOPRIL 20 MG TAB PO SCH (07:49)
[2016-11-22] MEDS: AMLODIPINE BESYLATE 5 MG TAB PO SCH (07:49)
[2016-11-22] MEDS: ENOXAPARIN 30 MG/0.3 ML SYR SQ SCH (07:50)
[2016-11-22 08:05] LABS: CALCIUM 9.1 mg/dl (8.5-10.1); CREATININE 0.75 mg/dl (0.60-1.40); POTASSIUM 3.5 mmol/L (3.5-5.1)
[2016-11-22 08:08] LABS: ALB/GLOB RATIO 0.7 (0.9-2)
[2016-11-22 08:16] VITALS: BP 157/95; PULSE 88; TEMP 36.5; O2SAT 93
--- NOTE | 2016-11-22 09:34 | DIAGNOSTIC IMAGING REPORT ---
ASCITES-ABDOMEN LIMITED CLINICAL HISTORY: History of alcoholism, worsening abdominal pain. Acute pancreatitis. Evaluate for ascites. COMPARISON STUDY: CT of the abdomen and pelvis November 18, 2016. TECHNIQUE: Sonography of the abdomen and pelvis was performed to evaluate for ascites. FINDINGS: No ascites was identified within the abdomen or pelvis. IMPRESSION: No ascites. Electronically signed by: Maximiliano Orozco M.D. 11/22/2016 9:32 AM Dictated Date/Time: 11/22/2016 9:31 AM
--- NOTE | 2016-11-22 09:38 | DIAGNOSTIC IMAGING REPORT ---
ABDOMINAL SERIES CLINICAL HISTORY: Abdominal distention. Acute pancreatitis. COMPARISON STUDY: Chest radiograph with abdominal series November 21, 2016. FINDINGS: Elevation of the right hemidiaphragm is unchanged. There is no free air. Bowel gas pattern is normal. Right basilar opacity persists. IMPRESSION: 1. No free air or evidence of bowel obstruction. 2. Right basilar opacity which could reflect atelectasis or consolidation. Electronically signed by: Maximiliano Orozco M.D. 11/22/2016 9:36 AM Dictated Date/Time: 11/22/2016 9:35 AM
[2016-11-22] MEDS: THIAMINE HCL INJ 200 MG in SODIUM CHLORIDE 0.9% 50ML 50 ML IV SCH (09:53)
[2016-11-22] MEDS: PANTOprazole INJ 40 MG in SYRINGE 0 ML IV SCH (11:02)
--- NOTE | 2016-11-22 12:13 | Gastroenterology Progress Note ---
Progress Note Date of Service: Nov 22, 2016 Subjective Pt evaluation today including: conversation w/ patient, conversation w/ family (), physical exam, chart review, lab review, review of studies, review of inpatient medication list cc f/u pancreatitis HPI Pt states abd pain better today. No bms. Noted KUB yesterday ileus and today normal. U/S negative for ascites. Review of Systems Respiratory: No shortness of breath Cardiac: No chest pain Medications Current Inpatient Medications Medications (Trade) Dose Ordered Sig/Sandra Route Start Time Stop Time Status Last Admin Dose Admin Ioversol (Optiray 320) 100 ml UD PRN IV 11/18/16 21:00 11/22/16 20:59 Ondansetron HCl 4 mg 4 mg Q6H PRN IV 11/18/16 22:30 12/18/16 22:29 11/21/16 15:30 4 MG Lactated Ringer's (Lr 1000ml) 1,000 ml @ 125 mls/hr Q8H IV 11/18/16 23:15 12/18/16 23:14 11/22/16 12:05 125 MLS/HR Lorazepam (Ativan Inj) 1 mg Q1H PRN IV 11/19/16 00:30 12/19/16 00:29 Morphine Sulfate (MoRPHine SULFATE INJ) 2 mg Q4 PRN IV 11/19/16 00:45 12/03/16 00:44 11/21/16 15:03 2 MG Morphine Sulfate 4 mg 4 mg Q4 PRN IV 11/19/16 00:45 12/03/16 00:44 11/21/16 21:59 4 MG Pantoprazole Sodium/Syringe (Protonix Inj/ Syringe) 10 ml @ 5 mls/min DAILY@11 IV 11/19/16 11:00 12/19/16 10:59 11/22/16 11:02 5 MLS/MIN Finasteride (Proscar Tab) 5 mg DAILY PO 11/19/16 09:00 12/19/16 08:59 11/22/16 07:48 5 MG Lisinopril (Zestril Tab) 20 mg DAILY PO 11/19/16 09:00 12/19/16 08:59 11/22/16 07:49 20 MG Tamsulosin HCl (Flomax Cap) 0.4 mg HS PO 11/19/16 21:00 3/11/17 20:59 11/21/16 20:08 0.4 MG Venlafaxine HCl 37.5 mg 37.5 mg BID PO 11/19/16 09:00 12/19/16 08:59 11/22/16 07:49 37.5 MG Lorazepam/Syringe (Ativan Inj/ Syringe) 1 ml @ 1 mls/min Q1H PRN IV 11/19/16 01:30 12/19/16 01:29 11/20/16 03:34 1 MLS/MIN Propranolol HCl (Inderal Tab) 80 mg QAM PO 11/19/16 09:00 12/19/16 08:59 11/22/16 07:49 80 MG Furosemide (Lasix Tab) 40 mg QAM PO 11/19/16 09:00 12/19/16 08:59 11/22/16 07:49 40 MG Spironolactone (Aldactone Tab) 50 mg QAM PO 11/19/16 09:00 12/19/16 08:59 11/22/16 07:49 50 MG Glucose (Glucose 40% Gel) 15-30 GRAMS 15 GRAMS... UD PRN PO 11/19/16 03:15 12/19/16 03:14 Glucose (Glucose Chew Tab) 4-8 Tablets 4 Tabl... UD PRN PO 11/19/16 03:15 12/19/16 03:14 Dextrose (Dextrose 50% 50ML Syringe) 25-50ML OF 50% DW IV FOR... UD PRN IV 11/19/16 03:15 12/19/16 03:14 Glucagon (Glucagon Inj) 1 mg UD PRN SQ 11/19/16 03:15 12/19/16 03:14 Insulin Aspart SLIDING SCALE G... Q6 SC 11/19/16 12:00 12/19/16 11:59 11/19/16 06:29 1 UNITS Thiamine HCl/ Sodium Chloride (Vitamin B-1 Inj/ Nss 50ml) 52 ml @ 208 mls/hr QAM IV 11/20/16 09:00 12/20/16 08:59 11/22/16 09:53 208 MLS/HR Enoxaparin Sodium (Lovenox Inj) 30 mg QAM SQ 11/20/16 09:00 12/20/16 08:59 11/22/16 07:50 30 MG Amlodipine Besylate (Norvasc Tab) 10 mg QAM PO 11/20/16 09:00 12/20/16 08:59 11/22/16 07:49 10 MG Objective Vital Signs Date Time Temp Pulse Resp B/P Pulse Ox O2 Delivery O2 Flow Rate FiO2 11/22/16 08:16 36.5 88 17 157/95 93 Room Air 11/22/16 08:00 Room Air 11/22/16 00:21 Room Air 11/22/16 00:11 36.8 78 18 145/84 90 Room Air 11/21/16 20:00 Room Air 11/21/16 16:00 Room Air 11/21/16 14:25 36.5 66 19 159/86 92 Room Air Physical Exam General Appearance: WD/WN, no apparent distress Respiratory/Chest: lungs clear, normal breath sounds, no respiratory distress Cardiovascular: no murmur Abdomen: normal bowel sounds, non tender, soft, no organomegaly, no pulsatile mass Laboratory Results Last 24 Hours Test 11/21/16 17:33 11/21/16 19:52 11/21/16 23:49 11/22/16 05:59 Bedside Glucose 136 mg/dl 140 mg/dl 106 mg/dl 106 mg/dl Test 11/22/16 07:21 11/22/16 07:42 11/22/16 11:35 White Blood Count 9.64 K/uL Red Blood Count 4.60 M/uL Hemoglobin 12.8 g/dL Hematocrit 37.5 % Mean Corpuscular Volume 81.5 fL Mean Corpuscular Hemoglobin 27.8 pg Mean Corpuscular Hemoglobin Concent 34.1 g/dl RDW Standard Deviation 43.8 fL RDW Coefficient of Variation 14.8 % Platelet Count 166 K/uL Mean Platelet Volume 9.9 fL Sodium Level 135 mmol/L Potassium Level 3.5 mmol/L Chloride Level 100 mmol/L Carbon Dioxide Level 24 mmol/L Anion Gap 11.0 mmol/L Blood Urea Nitrogen 15 mg/dl Creatinine 0.75 mg/dl Est Creatinine Clear Calc Drug Dose 96.8 ml/min Estimated GFR () 104.7 Estimated GFR (Non- 90.4 BUN/Creatinine Ratio 20.0 Random Glucose 120 mg/dl Calcium Level 9.1 mg/dl Total Bilirubin 1.3 mg/dl Aspartate Amino Transf (AST/SGOT) 46 U/L Alanine Aminotransferase (ALT/SGPT) 58 U/L Alkaline Phosphatase 206 U/L Total Protein 7.1 gm/dl Albumin 2.8 gm/dl Globulin 4.3 gm/dl Albumin/Globulin Ratio 0.7 Lipase 1026 U/L Bedside Glucose 128 mg/dl 142 mg/dl Assessment and Plan acute pancreatitsi--likely from ETOH and told patient recommend complete abstinence, lipase worse so keep NPO another day. If clinically better start clears tomorrow. If not then start TPN epigastric pain--secondary to pancrettis---better today abdominal distension--improved esophageal varices---elective EGD--end of hospitalization or outpt thickened duodenum--likely from pancrrritisi but can evaluate on elective EGD elevated WBC--likely from pancrraritisi--improved elevated LFTS-- slightly worse today, follow I am going off service today at [address] Em assuming GI care then.
--- NOTE | 2016-11-22 14:27 | Family Medicine Progress Note ---
Progress Note Date of Service Nov 22, 2016. Subjective Pt evaluation today including: conversation w/ patient, physical exam, chart review, lab review Voiding: no voiding problems Patient was seen at the bedside. No acute events overnight. Patient states that his abdominal pain has improved significantly, rates it as 2 today. He was nauseated last night and vomited once, no blood. Feeling fine this morning, denies nausea or vomiting. Denies SOB, chest pain, headache, melena, hematochezia or any other additional complaints. Constitutional: No fever, No weight loss Respiratory: No cough, No dyspnea on exertion, No shortness of breath, No wheezing Cardiovascular: No chest pain, No edema Abdomen: + pain (improved since yesterday), No constipation, No diarrhea, No nausea, No vomiting Musculoskeletal: No muscle pain Male : No dysuria Skin: No rash Medications Current Inpatient Medications Medications (Trade) Dose Ordered Sig/Sandra Route Start Time Stop Time Status Last Admin Dose Admin Ioversol (Optiray 320) 100 ml UD PRN IV 11/18/16 21:00 11/22/16 20:59 Ondansetron HCl 4 mg 4 mg Q6H PRN IV 11/18/16 22:30 12/18/16 22:29 11/21/16 15:30 4 MG Lactated Ringer's (Lr 1000ml) 1,000 ml @ 125 mls/hr Q8H IV 11/18/16 23:15 12/18/16 23:14 11/22/16 12:05 125 MLS/HR Lorazepam (Ativan Inj) 1 mg Q1H PRN IV 11/19/16 00:30 12/19/16 00:29 Morphine Sulfate (MoRPHine SULFATE INJ) 2 mg Q4 PRN IV 11/19/16 00:45 12/03/16 00:44 11/21/16 15:03 2 MG Morphine Sulfate 4 mg 4 mg Q4 PRN IV 11/19/16 00:45 12/03/16 00:44 11/21/16 21:59 4 MG Pantoprazole Sodium/Syringe (Protonix Inj/ Syringe) 10 ml @ 5 mls/min DAILY@11 IV 11/19/16 11:00 12/19/16 10:59 11/22/16 11:02 5 MLS/MIN Finasteride (Proscar Tab) 5 mg DAILY PO 11/19/16 09:00 12/19/16 08:59 11/22/16 07:48 5 MG Lisinopril (Zestril Tab) 20 mg DAILY PO 11/19/16 09:00 12/19/16 08:59 11/22/16 07:49 20 MG Tamsulosin HCl (Flomax Cap) 0.4 mg HS PO 11/19/16 21:00 12/19/16 20:59 11/21/16 20:08 0.4 MG Venlafaxine HCl 37.5 mg 37.5 mg BID PO 11/19/16 09:00 12/19/16 08:59 11/22/16 07:49 37.5 MG Lorazepam/Syringe (Ativan Inj/ Syringe) 1 ml @ 1 mls/min Q1H PRN IV 11/19/16 01:30 12/19/16 01:29 11/20/16 03:34 1 MLS/MIN Propranolol HCl (Inderal Tab) 80 mg QAM PO 11/19/16 09:00 12/19/16 08:59 11/22/16 07:49 80 MG Furosemide (Lasix Tab) 40 mg QAM PO 11/19/16 09:00 12/19/16 08:59 11/22/16 07:49 40 MG Spironolactone (Aldactone Tab) 50 mg QAM PO 11/19/16 09:00 12/19/16 08:59 11/22/16 07:49 50 MG Glucose (Glucose 40% Gel) 15-30 GRAMS 15 GRAMS... UD PRN PO 11/19/16 03:15 12/19/16 03:14 Glucose (Glucose Chew Tab) 4-8 Tablets 4 Tabl... UD PRN PO 11/19/16 03:15 12/19/16 03:14 Dextrose (Dextrose 50% 50ML Syringe) 25-50ML OF 50% DW IV FOR... UD PRN IV 11/19/16 03:15 12/19/16 03:14 Glucagon (Glucagon Inj) 1 mg UD PRN SQ 11/19/16 03:15 12/19/16 03:14 Insulin Aspart SLIDING SCALE G... Q6 SC 11/19/16 12:00 12/19/16 11:59 11/19/16 06:29 1 UNITS Thiamine HCl/ Sodium Chloride (Vitamin B-1 Inj/ Nss 50ml) 52 ml @ 208 mls/hr QAM IV 11/20/16 09:00 12/20/16 08:59 11/22/16 09:53 208 MLS/HR Enoxaparin Sodium (Lovenox Inj) 30 mg QAM SQ 11/20/16 09:00 12/20/16 08:59 11/22/16 07:50 30 MG Amlodipine Besylate (Norvasc Tab) 10 mg QAM PO 11/20/16 09:00 12/20/16 08:59 11/22/16 07:49 10 MG Objective Vital Signs Date Time Temp Pulse Resp B/P Pulse Ox O2 Delivery O2 Flow Rate FiO2 11/22/16 08:16 36.5 88 17 157/95 93 Room Air 11/22/16 08:00 Room Air 11/22/16 00:21 Room Air 11/22/16 00:11 36.8 78 18 145/84 90 Room Air 11/21/16 20:00 Room Air 11/21/16 16:00 Room Air 11/21/16 14:25 36.5 66 19 159/86 92 Room Air Physical Exam General Appearance: WD/WN, no apparent distress Neck: supple, trachea midline Respiratory/Chest: chest non-tender, lungs clear, normal breath sounds, no respiratory distress Cardiovascular: regular rate, rhythm, no edema Abdomen: normal bowel sounds, non tender, soft, + distended (improved since yesterday) Extremities: non-tender, no pedal edema Neurologic/Psychiatric: alert, normal mood/affect, oriented x 3 Skin: normal color, warm/dry, no rash Laboratory Results Results Past 24 Hours Test 11/21/16 17:33 11/21/16 19:52 11/21/16 23:49 11/22/16 05:59 Range/Units Bedside Glucose 136 140 106 106 70-99 mg/dl Test 11/22/16 07:21 11/22/16 07:42 11/22/16 11:35 Range/Units White Blood Count 9.64 4.8-10.8 K/uL Red Blood Count 4.60 4.7-6.1 M/uL Hemoglobin 12.8 14.0-18.0 g/dL Hematocrit 37.5 42-52 % Mean Corpuscular Volume 81.5 80-100 fL Mean Corpuscular Hemoglobin 27.8 25-34 pg Mean Corpuscular Hemoglobin Concent 34.1 32-36 g/dl RDW Standard Deviation 43.8 36.4-46.3 fL RDW Coefficient of Variation 14.8 11.5-14.5 % Platelet Count 166 130-400 K/uL Mean Platelet Volume 9.9 7.4-10.4 fL Sodium Level 135 136-145 mmol/L Potassium Level 3.5 3.5-5.1 mmol/L Chloride Level 100 98-107 mmol/L Carbon Dioxide Level 24 21-32 mmol/L Anion Gap 11.0 3-11 mmol/L Blood Urea Nitrogen 15 7-18 mg/dl Creatinine 0.75 0.60-1.40 mg/dl Est Creatinine Clear Calc Drug Dose 96.8 ml/min Estimated GFR () 104.7 Estimated GFR (Non- 90.4 BUN/Creatinine Ratio 20.0 10-20 Random Glucose 120 70-99 mg/dl Calcium Level 9.1 8.5-10.1 mg/dl Total Bilirubin 1.3 0.2-1 mg/dl Aspartate Amino Transf (AST/SGOT) 46 15-37 U/L Alanine Aminotransferase (ALT/SGPT) 58 12-78 U/L Alkaline Phosphatase 206 45-117 U/L Total Protein 7.1 6.4-8.2 gm/dl Albumin 2.8 3.4-5.0 gm/dl Globulin 4.3 2.5-4.0 gm/dl Albumin/Globulin Ratio 0.7 0.9-2 Lipase 1026 73-393 U/L Bedside Glucose 128 142 70-99 mg/dl Assessment and Plan 76M with a PMHx of alcohol use presenting to us with a 3 week history of epigastric pain that acutely worsened the previous night. According to pt he drinks approx [address] Scan showed signs of acute pancreatitis. Lipase >4000 on admission. GI (Dr. Salcido) was consulted and his recommendations are incorporated below. Patient is currently on IVF and continued to be NPO. Lipase is elevated today. 1. SIRS in the setting of a non-infectious process--acute pancreatitis - Pt was tachycardic on admission with possible confabulation and AMS. - IVF resuscitation LR 125mls/hr. 2. Abdominal pain - Most likely secondary to pancreatitis - Chest and Abd X-ray (11/21/16): No active disease in the chest. There is gaseous distention of the small bowel and colon suggesting ileus. There is no radiographic evidence of small bowel obstruction. - Pain worse later in the day - Per GI recommendation if KUB is negative order US to look for ascites. - US of abd for ascites was unremarkable, no ascites was noted - Continue NPO per GI recommendation 3. Acute pancreatitis most likely secondary to EtOH - Lipase is mildly elevated today, 4124---> 5771---> 1355---> 576--->1026. continue to trend. - Per GI recommendation continue to be NPO given worsening of pain - Continue LR 125mls/hr. - F/u CMP and lipase tomorrow. 4. Confusion, possible Wernicke's from Chronic Alcoholism (Resolved) - Patient is AAOx3. No clinical signs of withdrawal at present, no tremors was noted. Patient is getting up and walking around the halls. - Ativan PRN as per hospital protocol (dosing based on AWSS score). - Continue with IV Thiamine supplementation 200mg IV daily. - Discussed complete abstinence from alcohol. 4. 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 No clinical signs of esophageal bleeding - Continue Propranolol 80 mg, Lasix 40 mg, Spironolactone 50 mg - GI on board: Elective upper endoscopy, likely as outpatient or end of hospital stay. 5. Systolic murmur - Echocardiogram: grossly normal. 6. GERD - Continue pantoprazole 40 mg 7. HTN - His today's BP is 149/82 - Continue with Amlodipine to 10mg daily. - Continue with Lisinopril 20mg daily. 8. DM2 - Glipizide and metformin held - Glycemic consult in place, BS better controlled. 9. Elevated LFT - AST is mildly elevated today, 46, and ALT is normal. Alk Phos and Total Bili are elevated (206,1.3) - Hep B and C negative - CMP tomorrow am 10. HLD - Hold atorvastatin because of elevated LFT. 11. BPH - Continue tamsulosin 0.4 mg PO QHS - Finasteride 5 mg PO daily. 12. Depression - Continue Effexor 37.5 mg daily. 13. DVT Proph - Lovenox SQ, SCDs 14. Code Status - Full code Reviewed: Pt Seen/Exam by Me History pain much better Constitutional: denies: fever Respiratory: negative: short of breath Cardiovascular: denies chest pain Gastrointestinal/Abdominal: negative: abdominal pain General Appearance: no apparent distress Respiratory: lungs clear, no respiratory distress Cardiovascular: regular rate, rhythm Gastrointestinal: normal bowel sounds, non tender, soft Neurologic/Psychiatric: alert, oriented x 3 Skin Characteristics: warm/dry Assessment/Plan I have reviewed the medical record and performed a history and physical examination of this patient today. I have discussed the case with Dr. Jennings. The above note reflects my findings, conclusions, and recommendations. though pain much improved - lipase higher today. monitor further for tonight with NPO and IVF
[2016-11-22 16:28] VITALS: BP_SYST 135; BP_SYST 164; BP_DIAS 83; BP_DIAS 87; PULSE 67; TEMP 36.6; O2SAT 92
[2016-11-22] MEDS: TAMSULOSIN HCL 0.4 MG CAP PO SCH (19:33)
[2016-11-23] VITALS: BP 162/88; PULSE 82; TEMP 36.6; O2SAT 92
[2016-11-23] MEDS: LACTATED RINGER'S 1000ML 1,000 ML IV SCH (02:43)
[2016-11-23] MEDS: INSULIN ASPART 100 UNITS/ML 3 ML PEN SC SCH ×4 (06:00→20:40)
[2016-11-23 06:29] LABS: BASO % 0.2 %; BASO ABS # 0.02 K/uL (0-0.2); COMPLETE YES; EOS % 1.4 %; HEMATOCRIT 38.1 % (42-52); IG% 0.4 %; LYMPH % 24.6 %; LYMPH ABS # 2.64 K/uL (1.2-3.4); MEAN CELL VOLUME 79.7 fL (80-100); MEAN CORPUSCULAR HGB CONC 33.9 g/dl (32-36); MEAN PLATELET VOLUME 9.3 fL (7.4-10.4); MONO % 8.4 %; PLATELET COUNT 193 K/uL (130-400); RED BLOOD COUNT 4.78 M/uL (4.7-6.1); WHITE BLOOD COUNT 10.72 K/uL (4.8-10.8)
[2016-11-23 07:00] LABS: BUN/CREATININE RATIO 17.8 (10-20); CREATININE 0.82 mg/dl (0.60-1.40); POTASSIUM 3.3 mmol/L (3.5-5.1)
[2016-11-23 07:03] LABS: ALB/GLOB RATIO 0.7 (0.9-2)
[2016-11-23 07:37] VITALS: BP 151/86; PULSE 89; TEMP 36.6; O2SAT 94
[2016-11-23 08:00] VITALS: O2SAT 94
[2016-11-23] MEDS: THIAMINE HCL INJ 200 MG in SODIUM CHLORIDE 0.9% 50ML 50 ML IV SCH (08:15)
[2016-11-23] MEDS: FINASTERIDE 5 MG TAB PO SCH (08:21)
[2016-11-23] MEDS: ENOXAPARIN 30 MG/0.3 ML SYR SQ SCH (08:21)
[2016-11-23] MEDS: LISINOPRIL 20 MG TAB PO SCH (08:21)
[2016-11-23] MEDS: PROPRANOLOL HCL 80 MG TAB PO SCH (08:22)
[2016-11-23] MEDS: AMLODIPINE BESYLATE 5 MG TAB PO SCH (08:22)
[2016-11-23] MEDS: SPIRONOLACTONE 25 MG TAB PO SCH (08:22)
[2016-11-23] MEDS: FUROSEMIDE 40 MG TAB PO SCH (08:23)
[2016-11-23] MEDS: VENLAFAXINE HCL 37.5 MG TAB PO SCH ×2 (08:23→20:44)
--- NOTE | 2016-11-23 12:56 | PROGRESS NOTE ---
DATE: 11/23/2016 The patient states his epigastric pain is improving and he is hungry. VITAL SIGNS: Show blood pressure of 151/86, pulse 89, temperature is 36.6. Laboratory showed that his lipase today is 994, albumin is low at 3. Bilirubin is 1.4, alkaline phosphatase 243. IMPRESSION: The patient has what appears to be alcohol-related pancreatitis. I plan on starting him on clear liquids today to see how he does. He is currently getting propranolol for his esophageal varices, which will be continued.
[2016-11-23] MEDS: PANTOprazole INJ 40 MG in SYRINGE 0 ML IV SCH (13:19)
[2016-11-23] MEDS: POTASSIUM CHLORIDE INJ 20 MEQ in LACTATED RINGER'S 1000ML 1,000 ML IV SCH ×2 (13:19→20:45)
[2016-11-23 14:58] VITALS: BP 126/74; PULSE 65; TEMP 36.5; O2SAT 91
[2016-11-23] MEDS ORDERED: NURSING VERBAL MED ORDER ONE (16:00)
--- NOTE | 2016-11-23 18:20 | Family Medicine Progress Note ---
Progress Note Date of Service Nov 23, 2016. Subjective Pt evaluation today including: conversation w/ patient, physical exam, chart review, lab review, review of studies, conversation w/ absence management consultant Pain: + abdominal cramping, no improvement from previous PO Intake: NPO Voiding: no voiding problems No acute events overnight. Pt reports episodic abdominal cramping, typically lasting 30 min. + Nausea without vomiting,. no cp, sob. also reports chronic lower back pain he attributes to hx of herniated disc. having trouble sleeping at night. Constitutional: No chills, No fever, No weakness Respiratory: No cough, No shortness of breath, No wheezing Cardiovascular: No chest pain, No edema, No palpitations Abdomen: + nausea, + problem reported (abdominal cramping), No constipation , No diarrhea, No vomiting Male : No dysuria, No hematuria, No urinary frequency Skin: No itch, No rash Medications Current Inpatient Medications Medications (Trade) Dose Ordered Sig/Sandra Route Start Time Stop Time Status Last Admin Dose Admin Ondansetron HCl (Zofran Inj) 4 mg Q6H PRN IV 11/18/16 22:30 12/18/16 22:29 11/21/16 15:30 4 MG Lorazepam (Ativan Inj) 1 mg Q1H PRN IV 11/19/16 00:30 12/19/16 00:29 Morphine Sulfate (MoRPHine SULFATE INJ) 2 mg Q4 PRN IV 11/19/16 00:45 12/03/16 00:44 11/21/16 15:03 2 MG Morphine Sulfate 4 mg 4 mg Q4 PRN IV 11/19/16 00:45 12/03/16 00:44 11/21/16 21:59 4 MG Pantoprazole Sodium/Syringe (Protonix Inj/ Syringe) 10 ml @ 5 mls/min DAILY@11 IV 11/19/16 11:00 12/19/16 10:59 11/23/16 13:19 5 MLS/MIN Finasteride (Proscar Tab) 5 mg DAILY PO 11/19/16 09:00 12/19/16 08:59 11/23/16 08:21 5 MG Lisinopril (Zestril Tab) 20 mg DAILY PO 11/19/16 09:00 12/19/16 08:59 11/23/16 08:21 20 MG Tamsulosin HCl (Flomax Cap) 0.4 mg HS PO 11/19/16 21:00 12/19/16 20:59 11/22/16 19:33 0.4 MG Venlafaxine HCl 37.5 mg 37.5 mg BID PO 11/19/16 09:00 12/19/16 08:59 11/23/16 08:23 37.5 MG Lorazepam/Syringe (Ativan Inj/ Syringe) 1 ml @ 1 mls/min Q1H PRN IV 11/19/16 01:30 12/19/16 01:29 11/20/16 03:34 1 MLS/MIN Propranolol HCl (Inderal Tab) 80 mg QAM PO 11/19/16 09:00 12/19/16 08:59 11/23/16 08:22 80 MG Furosemide (Lasix Tab) 40 mg QAM PO 11/19/16 09:00 12/19/16 08:59 11/23/16 08:23 40 MG Spironolactone (Aldactone Tab) 50 mg QAM PO 11/19/16 09:00 12/19/16 08:59 11/23/16 08:22 50 MG Glucose (Glucose 40% Gel) 15-30 GRAMS 15 GRAMS... UD PRN PO 11/19/16 03:15 12/19/16 03:14 Glucose (Glucose Chew Tab) 4-8 Tablets 4 Tabl... UD PRN PO 11/19/16 03:15 12/19/16 03:14 Dextrose (Dextrose 50% 50ML Syringe) 25-50ML OF 50% DW IV FOR... UD PRN IV 11/19/16 03:15 12/19/16 03:14 Glucagon 1 mg 1 mg UD PRN SQ 11/19/16 03:15 12/19/16 03:14 Thiamine HCl/ Sodium Chloride (Vitamin B-1 Inj/ Nss 50ml) 52 ml @ 208 mls/hr QAM IV 11/20/16 09:00 12/20/16 08:59 11/23/16 08:15 208 MLS/HR Enoxaparin Sodium (Lovenox Inj) 30 mg QAM SQ 11/20/16 09:00 12/20/16 08:59 11/23/16 08:21 30 MG Amlodipine Besylate 10 mg 10 mg QAM PO 11/20/16 09:00 12/20/16 08:59 11/23/16 08:22 10 MG Potassium Chloride/Lactated Ringer's (KCl Inj/Lr 1000ml) 1,010 ml @ 125 mls/hr Q8H5M IV 11/23/16 13:00 12/23/16 12:59 11/23/16 13:19 125 MLS/HR Insulin Aspart (novoLOG ASPART) SLIDING SCALE G... ACHS SC 11/23/16 16:30 12/19/16 11:59 Objective Vital Signs Date Time Temp Pulse Resp B/P Pulse Ox O2 Delivery O2 Flow Rate FiO2 11/23/16 19:01 Room Air 11/23/16 14:58 36.5 65 22 126/74 91 Room Air 11/23/16 08:00 94 Room Air 2.0 11/23/16 07:37 36.6 89 18 151/86 94 Room Air 11/23/16 00:18 Room Air 11/23/16 00:00 36.6 82 18 162/88 92 Room Air Physical Exam General Appearance: WD/WN, no apparent distress Eyes: PERRL, EOMI Neck: supple, no adenopathy, no carotid bruits Respiratory/Chest: chest non-tender, lungs clear Cardiovascular: regular rate, rhythm, no edema, no murmur Abdomen: normal bowel sounds, soft, + tenderness (epigastric tenderness), + hernia (small umbilical, not incarcerated), + pertinent finding (no rebound/ guarding/rigidity, surgical scar in suprapubic region, from radical prostatectomy ) Extremities: no pedal edema, no calf tenderness Neurologic/Psychiatric: alert, normal mood/affect, oriented x 3 Skin: normal color, warm/dry Laboratory Results Results Past 24 Hours Test 11/22/16 23:51 11/23/16 05:55 11/23/16 06:19 11/23/16 11:37 Range/Units Bedside Glucose 98 112 119 70-99 mg/dl White Blood Count 10.72 4.8-10.8 K/uL Red Blood Count 4.78 4.7-6.1 M/uL Hemoglobin 12.9 14.0-18.0 g/dL Hematocrit 38.1 42-52 % Mean Corpuscular Volume 79.7 80-100 fL Mean Corpuscular Hemoglobin 27.0 25-34 pg Mean Corpuscular Hemoglobin Concent 33.9 32-36 g/dl Platelet Count 193 130-400 K/uL Mean Platelet Volume 9.3 7.4-10.4 fL Neutrophils (%) (Auto) 65.0 % Lymphocytes (%) (Auto) 24.6 % Monocytes (%) (Auto) 8.4 % Eosinophils (%) (Auto) 1.4 % Basophils (%) (Auto) 0.2 % Neutrophils # (Auto) 6.97 1.4-6.5 K/uL Lymphocytes # (Auto) 2.64 1.2-3.4 K/uL Monocytes # (Auto) 0.90 0.11-0.59 K/uL Eosinophils # (Auto) 0.15 0-0.5 K/uL Basophils # (Auto) 0.02 0-0.2 K/uL RDW Standard Deviation 41.5 36.4-46.3 fL RDW Coefficient of Variation 14.4 11.5-14.5 % Immature Granulocyte % (Auto) 0.4 % Immature Granulocyte # (Auto) 0.04 0.00-0.02 K/uL Sodium Level 136 136-145 mmol/L Potassium Level 3.3 3.5-5.1 mmol/L Chloride Level 98 98-107 mmol/L Carbon Dioxide Level 23 21-32 mmol/L Anion Gap 15.0 3-11 mmol/L Blood Urea Nitrogen 15 7-18 mg/dl Creatinine 0.82 0.60-1.40 mg/dl Est Creatinine Clear Calc Drug Dose 88.5 ml/min Estimated GFR () 101.0 Estimated GFR (Non- 87.1 BUN/Creatinine Ratio 17.8 10-20 Random Glucose 122 70-99 mg/dl Calcium Level 9.0 8.5-10.1 mg/dl Magnesium Level 2.2 1.8-2.4 mg/dl Total Bilirubin 1.4 0.2-1 mg/dl Aspartate Amino Transf (AST/SGOT) 58 15-37 U/L Alanine Aminotransferase (ALT/SGPT) 65 12-78 U/L Alkaline Phosphatase 243 45-117 U/L Total Protein 7.6 6.4-8.2 gm/dl Albumin 3.0 3.4-5.0 gm/dl Globulin 4.6 2.5-4.0 gm/dl Albumin/Globulin Ratio 0.7 0.9-2 Lipase 994 73-393 U/L Test 11/23/16 16:32 11/23/16 20:16 Range/Units Bedside Glucose 127 86 70-99 mg/dl Assessment and Plan 76 yo M w/ Hx of alcohol abuse p/w epigastric admitted for SIRS in the setting of acute pancreatitis SIRS in the setting of Acute Pancreatitis -clinically improved from arrival, afebrile, VSS - Continue IVF resuscitation LR 125mls/hr. KCl rider added Abdominal pain - epigastric, likely secondary to the acute pancreatitis - Chest and Abd X-ray (11/21/16): No active disease in the chest. There is gaseous distention of the small bowel and colon suggesting ileus. There is no radiographic evidence of small bowel obstruction. - KUB is negative - US of abd for ascites was unremarkable, no ascites was noted - per GI recommendation: diet advanced to clears, - Assess if pt tolerates diet in AM Acute pancreatitis - improved -likely due to alcohol, Gallstones unlikely etiology, considering unremarkable Gallbladder findings on CT - Lipase trending down, 4124---> 5771---> 1355---> 576--->1026 --> 994. - Continue LR 125mls/hr. - F/u CMP and repeat lipase Alcohol Withdrawal - Confusion improved from arrival, AOx3. - AWSS protocols in places with PRN Ativan. - Continue with IV Thiamine supplementation 200mg IV daily. - Discussed complete abstinence from alcohol. Hx of Esophageal varices 2/2 portal hypertension - Varices seen on CT Scan. No clinical signs of esophageal bleeding - Continue Propranolol 80 mg, Lasix 40 mg, Spironolactone 50 mg - Per GI:: Elective EG, likely as outpatient or end of hospital stay. Systolic murmur - Echocardiogram: grossly normal. GERD - Continue pantoprazole 40 mg HTN - His today's BP is 151/86 - Continue with Amlodipine to 10mg daily. - Continue with Lisinopril 20mg daily. DM2 - Glipizide and metformin held - Glycemic consult in place - F/u PRP Elevated LFT - LFT's trending up slightly - AST 46 -->58 and ALT 58-->65. Alk Phos 206-->243 Total Bili 1.3 -->1.4 - Hep B and C negative - F/u CMP in am HLD -Atorvastatin remains held due to elevated LFT. BPH - Continue tamsulosin 0.4 mg PO QHS - Finasteride 5 mg PO daily. Depression - Continue Effexor 37.5 mg daily. DVT Proph - Lovenox SQ, SCDs 14. Code Status - Full code Attending Attestation: Pt seen/examined, chart reviewed, care plan d/w PGY1 Dr. Rober Romano. I agree w/ the samson components of his documentation with the following exceptions - none. Pt feeling much better with improved abdominal pain. No nausea No emesis Tolerating clears at time of my visit VSS, afebrile gen - NAD heart - RRR, s1, s2 lungs - CTA b/l abd - soft, NT, ND, BS+, tiny umbilical hernia present and reducible; scar lower abdomen noted A/P: 1. acute pancreatitis 2nd to etoh - improving agree w/ starting clears as ordered by GI cont IVF 2. alcoholic cirrhosis - needs to abstain 100% from etoh no signs of decompensation at this time 3. abnormal LFTs - improving; 2nd to recent etoh consumption and cirrhosis 4. hypokalemia - add KCL to fluid progressing hopefully home next 1-2 days Yamileth CARROLL MD Resident Tracking Resident Involvement: Resident Care Provided Care Provided: Adult Hospital Medicine
[2016-11-23] MEDS: TAMSULOSIN HCL 0.4 MG CAP PO SCH (20:43)
[2016-11-24 00:12] VITALS: BP 129/68; PULSE 74; TEMP 36.7; O2SAT 92
[2016-11-24] MEDS: POTASSIUM CHLORIDE INJ 20 MEQ in LACTATED RINGER'S 1000ML 1,000 ML IV SCH ×2 (05:19→13:18)
[2016-11-24 07:49] VITALS: BP 164/93; PULSE 89; TEMP 36.5; O2SAT 93
[2016-11-24 08:00] VITALS: O2SAT 93
[2016-11-24] MEDS ORDERED: PROPRANOLOL HCL 80 MG TAB PO SCH (08:00)
[2016-11-24] MEDS: PROPRANOLOL HCL 80 MG TAB PO SCH (08:00)
[2016-11-24 08:20] LABS: BASO % 0.2 %; BASO ABS # 0.02 K/uL (0-0.2); COMPLETE YES; HEMATOCRIT 39.4 % (42-52); IG% 0.2 %; LYMPH % 25.9 %; LYMPH ABS # 2.55 K/uL (1.2-3.4); MEAN CELL VOLUME 81.9 fL (80-100); MEAN CORPUSCULAR HEMOGLOBIN 27.9 pg (25-34); MEAN PLATELET VOLUME 9.8 fL (7.4-10.4); MONO % 8.2 %; NEUT % 63.5 %; PLATELET COUNT 208 K/uL (130-400); RED BLOOD COUNT 4.81 M/uL (4.7-6.1); WHITE BLOOD COUNT 9.83 K/uL (4.8-10.8)
[2016-11-24] MEDS: AMLODIPINE BESYLATE 5 MG TAB PO SCH (08:30)
[2016-11-24] MEDS: LISINOPRIL 20 MG TAB PO SCH (08:30)
[2016-11-24] MEDS: FINASTERIDE 5 MG TAB PO SCH (08:31)
[2016-11-24] MEDS: ENOXAPARIN 30 MG/0.3 ML SYR SQ SCH (08:32)
[2016-11-24] MEDS: VENLAFAXINE HCL 37.5 MG TAB PO SCH (08:32)
[2016-11-24] MEDS: SPIRONOLACTONE 25 MG TAB PO SCH (08:37)
[2016-11-24] MEDS: THIAMINE HCL INJ 200 MG in SODIUM CHLORIDE 0.9% 50ML 50 ML IV SCH (08:38)
[2016-11-24] MEDS: FUROSEMIDE 40 MG TAB PO SCH (08:39)
[2016-11-24 08:57] LABS: BUN/CREATININE RATIO 13.8 (10-20); CREATININE 0.82 mg/dl (0.60-1.40); POTASSIUM 3.6 mmol/L (3.5-5.1)
[2016-11-24 09:00] LABS: ALB/GLOB RATIO 0.6 (0.9-2); PHOSPHORUS 2.6 mg/dl (2.5-4.9)
[2016-11-24] MEDS ORDERED: PROPRANOLOL HCL 20 MG TAB PO SCH (09:00)
[2016-11-24] MEDS: INSULIN ASPART 100 UNITS/ML 3 ML PEN SC SCH ×3 (09:17→18:07)
[2016-11-24 11:43] VITALS: BP 138/86; PULSE 64; TEMP 36.5; O2SAT 92
[2016-11-24] MEDS: PANTOprazole INJ 40 MG in SYRINGE 0 ML IV SCH (13:14)
--- NOTE | 2016-11-24 14:01 | GASTROENTEROLOGY PROGRESS NOTE ---
DATE: 11/24/2016 DATE: 11/24/2016. SUBJECTIVE: The patient is resting comfortably in bed and eating soup which he has tolerated. All of his meals since resuming oral intake have been well tolerated without production of pain, nausea or vomiting. The patient drinks approximately [address] scan on admission revealed evidence of acute pancreatitis as well as change in the liver consistent with cirrhotic appearance and varices. The patient on admission was found to have elevation in ALT 108, AST 53, alkaline phosphatase 165, total protein of 8.6 with a slightly elevated globulin, lipase 4124. Subsequent LFTs showed initial decrease, however alkaline phosphatase has now trended upwards at 265 with a bilirubin of 1.2, AST of 56. LABORATORY DATA: White count today 9.8, hemoglobin 13.4, platelets 208,000. INR on admission showed 1.1. ALLERGIES: The patient has no known drug allergies. MEDICATIONS: Currently include Inderal 40 mg twice daily for his newly diagnosed varices, insulin, potassium, thiamine, amlodipine, Lovenox, Flomax, Proscar, lisinopril, Effexor, Lasix, Aldactone, Zofran and morphine. REVIEW OF SYSTEMS: Otherwise noncontributory. The patient denies any nausea, vomiting, melena, bright red blood per rectum. The patient has never had any GI bleeding by his recollection. PHYSICAL EXAMINATION: VITAL SIGNS: Today blood pressure 138/86, respirations 16, heart rate 64. The patient is afebrile 36.5, 92% on room air. GENERAL: Today, the patient is awake, alert and oriented x3. Sclerae are anicteric. HEAD, EYES, EARS, NOSE, AND THROAT: Oral mucosa is moist. HEART: Normal S1, S2. LUNGS: Clear to auscultation. ABDOMEN: Soft, nontender, nondistended. Good bowel sounds. EXTREMITIES: With trace edema. RECTAL: Deferred. IMPRESSION AND PLAN: The patient with a first event of acute pancreatitis during this hospitalization, admitted for pancreatitis. Initial LFTs showed a mild elevation, although they seem to trend down and now have rebounded and alkaline phosphatase has now increased. Nevertheless, the patient is clinically doing better. The gallbladder was felt to be unremarkable on CT imaging. I made the following recommendations, given the patient's age and first time pancreatitis, and reprted weight loss over past few months, although occurring in the sitting of alcohol use, may be unusual and it is reasonable to pursue a follow-up imaging study in 4-6 weeks to exclude any potential mass effect that may be the source of the patient's pancreatitis. This can either be with a CT or MRI/MRCP. The source of the patient's rising alkaline phosphatase raises the possibility of gallstones pancreatitis and it may be reasonable for the patient to have an MRCP to exclude stones or sludge in the biliary system during this hospitalization. Liver tests should also be trended. Clinically, the patient is doing better and is tolerating p.o. but I believe it is reasonable to exclude any obvious retained stones or change in the biliary system. Inderal should be continued for his portal hypertension. An outpatient upper endoscopy is reasonable to stage the varices. In addition, other potential sources of liver diseases should be excluded including chronic viral hepatitis and autoimmune hepatitis. However, given his alcohol use, diabetes, this may represent either consequence of alcoholic and/or nonalcoholic fatty liver disease. If the patient is discharged, then we would ask to see the patient in followup in GI clinic over the next 2-3 weeks. If he continues to do well his diet should be a low fat diet as an outpatient with small frequent meals. If you have any questions, please contact the service. Thank you for allowing us to participate in this patient's care. JOSEY
--- NOTE | 2016-11-24 14:02 | Family Medicine Progress Note ---
Progress Note Date of Service Nov 24, 2016. Subjective Pt evaluation today including: conversation w/ patient, physical exam, chart review, lab review, review of studies, review of inpatient medication list Medications Current Inpatient Medications Medications (Trade) Dose Ordered Sig/Sandra Route Start Time Stop Time Status Last Admin Dose Admin Ondansetron HCl (Zofran Inj) 4 mg Q6H PRN IV 11/18/16 22:30 12/18/16 22:29 11/21/16 15:30 4 MG Lorazepam (Ativan Inj) 1 mg Q1H PRN IV 11/19/16 00:30 12/19/16 00:29 Morphine Sulfate (MoRPHine SULFATE INJ) 2 mg Q4 PRN IV 11/19/16 00:45 12/03/16 00:44 11/21/16 15:03 2 MG Morphine Sulfate 4 mg 4 mg Q4 PRN IV 11/19/16 00:45 12/03/16 00:44 11/21/16 21:59 4 MG Pantoprazole Sodium/Syringe (Protonix Inj/ Syringe) 10 ml @ 5 mls/min DAILY@11 IV 11/19/16 11:00 12/19/16 10:59 11/24/16 13:14 5 MLS/MIN Finasteride (Proscar Tab) 5 mg DAILY PO 11/19/16 09:00 12/19/16 08:59 11/24/16 08:31 5 MG Lisinopril (Zestril Tab) 20 mg DAILY PO 11/19/16 09:00 12/19/16 08:59 11/24/16 08:30 20 MG Tamsulosin HCl (Flomax Cap) 0.4 mg HS PO 11/19/16 21:00 12/19/16 20:59 11/23/16 20:43 0.4 MG Venlafaxine HCl 37.5 mg 37.5 mg BID PO 11/19/16 09:00 12/19/16 08:59 11/24/16 08:32 37.5 MG Lorazepam/Syringe (Ativan Inj/ Syringe) 1 ml @ 1 mls/min Q1H PRN IV 11/19/16 01:30 12/19/16 01:29 11/20/16 03:34 1 MLS/MIN Furosemide (Lasix Tab) 40 mg QAM PO 11/19/16 09:00 12/19/16 08:59 11/24/16 08:39 40 MG Spironolactone (Aldactone Tab) 50 mg QAM PO 11/19/16 09:00 12/19/16 08:59 11/24/16 08:37 50 MG Glucose (Glucose 40% Gel) 15-30 GRAMS 15 GRAMS... UD PRN PO 11/19/16 03:15 12/19/16 03:14 Glucose (Glucose Chew Tab) 4-8 Tablets 4 Tabl... UD PRN PO 11/19/16 03:15 12/19/16 03:14 Dextrose (Dextrose 50% 50ML Syringe) 25-50ML OF 50% DW IV FOR... UD PRN IV 11/19/16 03:15 12/19/16 03:14 Glucagon 1 mg 1 mg UD PRN SQ 11/19/16 03:15 12/19/16 03:14 Thiamine HCl/ Sodium Chloride (Vitamin B-1 Inj/ Nss 50ml) 52 ml @ 208 mls/hr QAM IV 11/20/16 09:00 12/20/16 08:59 11/24/16 08:38 208 MLS/HR Enoxaparin Sodium (Lovenox Inj) 30 mg QAM SQ 11/20/16 09:00 12/20/16 08:59 11/24/16 08:32 30 MG Amlodipine Besylate 10 mg 10 mg QAM PO 11/20/16 09:00 12/20/16 08:59 11/24/16 08:30 10 MG Potassium Chloride/Lactated Ringer's (KCl Inj/Lr 1000ml) 1,010 ml @ 125 mls/hr Q8H5M IV 11/23/16 13:00 12/23/16 12:59 11/24/16 13:18 125 MLS/HR Insulin Aspart (novoLOG ASPART) SLIDING SCALE G... ACHS SC 11/23/16 16:30 12/19/16 11:59 11/24/16 13:16 5 UNITS Propranolol HCl (Inderal Tab) 40 mg BID@0900,2100 PO 11/24/16 09:00 12/24/16 08:59 11/24/16 08:31 40 MG Objective Vital Signs Date Time Temp Pulse Resp B/P Pulse Ox O2 Delivery O2 Flow Rate FiO2 11/24/16 11:43 36.5 64 16 138/86 92 Room Air 11/24/16 09:01 Room Air 11/24/16 08:00 93 Room Air 11/24/16 07:49 36.5 89 16 164/93 93 Room Air 11/24/16 00:12 36.7 74 20 129/68 92 Room Air 11/24/16 00:00 Room Air 11/23/16 19:01 Room Air 11/23/16 14:58 36.5 65 22 126/74 91 Room Air Resident Tracking Resident Involvement: Resident Care Provided Care Provided: Adult Hospital Medicine
[2016-11-24 15:01] VITALS: BP 126/79; PULSE 64; TEMP 36.5; O2SAT 92
--- NOTE | 2016-11-24 17:31 | Discharge Instructions ---
Discharge Instructions Admission Reason for Admission: Acute Pancreatitis (Rober Croft MD) Discharge Discharge Diagnosis / Problem: Acute Pancreatits (Rober Croft MD) Discharge Goals Goal(s): Decrease discomfort, Improve function, Increase independence, Improve disease control, Improve nutritional status, Learn about illness, Diagnostic testing, Therapeutic intervention, Screening, Prevent Disease Progression, Specific goals (Rober Croft MD) Activity Recommendations Activity Limitations: per Instructions/Follow-up section . (Rober Croft MD) Instructions / Follow-Up Instructions / Follow-Up You came into the hospital with Pancreatitis likely due to Alcohol use (1) Please refrain from alcohol (2) Please start a LOW FAT diet at home with Small Frequent Meals (3) Please followup with [facility] in 1-2 weeks (4) Please followup in clinic Dr. Arun Crawford, Internal Medicine on Wednesday (5) Please take medication as prescribed (Rober Croft MD) Current Hospital Diet Patient's current hospital diet: Full Liquid Diet (Rober Croft MD) Discharge Diet Recommended Diet: Low Fat Diet ( Small Frequent Meals) (Rober Croft MD) Pending Studies Studies pending at discharge: no (Rober Croft MD) Medical Emergencies . Who to Call and When: Medical Emergencies: If at any time you feel your situation is an emergency, please call 911 immediately. . (Rober Croft MD) Non-Emergent Contact Non-Emergency issues call your: Primary Care Provider, Corrugator Machine Operator Call Non-Emergent contact if: you have a fever, your pain is not controlled, your pain is worsening, your pain is unusual for you, your pain is concerning you, you have any medication questions . (Rober Croft MD) . "Provider Documentation" section prepared by Rober Croft. (Rober Croft MD) Attending Attestation: Pt seen & examined with PGY1 Dr. Rober Croft on the day of discharge and I agree with his discharge instructions as outlined. Denzel Ponce MD (Denzel Ponce MD) VTE Core Measure Inpt VTE Proph given/why not?: SCD's (Rober Croft MD) Resident Tracking Resident Involvement: Resident Care Provided Care Provided: Adult [facility] Medicine (Rober Croft MD)
[2016-11-24] MEDS ORDERED: PROP20TA66 PO (17:38)
[2016-11-24 17:49] VITALS: BP 126/79; PULSE 64; TEMP 36.5; O2SAT 92
--- NOTE | 2016-11-24 23:56 | Discharge Summary ---
Discharge Summary Admission Date: Nov 18, 2016 at 22:26 Discharge Date: Nov 24, 2016 Discharge Disposition: Home Principal Diagnosis: Acute pancreatitis Immunizations: Have You Had Influenza Vaccine: No History of Tetanus Vaccine?: Yes History of Pneumococcal: No History of Hepatitis B Vaccine: No Consultations: GI Medication Reconciliation New Medications: Propranolol HCl (Propranolol HCl) 20 Mg Tab 40 MG PO BID@0900,2100 for portal hypertension for 30 Days, #30 TAB 1 Refill Continued Medications: Acetaminophen/Hydrocodone (Hydrocodone/Acetaminophen 5-325 mg) 1 Ea Tab 1 TAB PO Q6 PRN for Pain Amlodipine (Norvasc) 10 Mg Tab 10 MG PO DAILY, TAB Atorvastatin (Lipitor) 80 Mg Tab 40 MG PO QPM, TAB Cyclobenzaprine Hcl (Flexeril) 10 Mg Tab 10 MG PO BID PRN for Muscle Spasms, #21 TAB Etodolac (Etodolac) 500 Mg Tab 500 MG PO BID PRN for PAIN/INFLAMMATION Finasteride (Proscar) 5 Mg Tab 5 MG PO DAILY, TAB Glipizide (Glucotrol) 10 Mg Tab 10 MG PO BIDM, TAB Lisinopril (Lisinopril) 20 Mg Tab 20 MG PO DAILY Metformin Hcl (Glucophage) 1,000 Mg Tab 1000 MG PO BID, TAB Omeprazole (Prilosec) 20 Mg Capcr 20 MG PO DAILY, CAP Tamsulosin HCl (Tamsulosin HCl) 0.4 Mg Cap 0.4 MG PO HS Venlafaxine Hcl (Effexor) 37.5 Mg Tab 37.5 MG PO BID, TAB Discharge Exam Review of Systems: Constitutional: No chills, No fever, No weakness Respiratory: No cough, No shortness of breath Cardiovascular: No chest pain, No edema, No palpitations Abdomen: No diarrhea, No nausea, No pain, No vomiting Musculoskeletal: No calf pain, No swelling Genitourinary - Male: No dysuria, No hematuria, No urinary frequency Integumentary: No itch, No rash Physical Exam: General Appearance: WD/WN, no apparent distress Eyes: normal inspection, PERRL, EOMI Neck: supple, no adenopathy, trachea midline Respiratory/Chest: lungs clear, normal breath sounds, no respiratory distress Cardiovascular: regular rate, rhythm, no edema, no murmur Abdomen / GI: normal bowel sounds, soft, + pertinent finding (minimal epigastric tenderness) Extremities: normal inspection, no calf tenderness, no pedal edema Neurologic/Psychiatric: alert, normal mood/affect, oriented x 3 Skin: normal color, warm/dry, no rash Hospital Course 76 yo M with hx of Diabetes( on metformin) , HTN, Hyperlipidemia, heavy alcohol use who presented with 3 wk hx of epigastric pain, admitted for acute pancreatitis confirmed on lipase >[address] in addition to findings of cirrhosis ,esophageal varices. Patient met SIRS criteria. Patient was made NPO , placed on IV fluids, Propranolol, Lasix, Spironolactone. , GI was consulted. Patient clinically improved. Lipase trended down (4124 on arrival, 994 on d/c), LFT's improved. He was discharged with outpatient GI followup. This includes examination of the patient, discharge planning, medication reconciliation, and communication with other providers. Discharge Instructions Please refer to the electronic Patient Visit Report (Discharge Instructions) for additional information.
--- NOTE | 2016-11-27 11:08 | EDITING REQUIRED CODING QUERY ---
SEPSIS Dear Dr. Ponce, To promote full compliance with coding requirements relating to patient care, physician participation is requested in all cases of squirt machine operator uncertainty. Please assist us with the question(s) below: In responding to this query, please exercise your independent professional judgement. The fact that a question is asked does not imply that any particular answer is desired or expected. We appreciate your clarification on this issue. Medical documentation: SIRS in the setting of Acute Pancreatitis -clinically improved from arrival, afebrile, VSS - Continue IVF resuscitation LR 125mls/hr. KCl rider added Please clarify SIRS: ( )Bacteremia (Nonspecific laboratory finding of bacteria in the blood) Specify Organism ( ) Present on Admission ( ) Not present on admission ( ) Unable to clinically determine ( ) Septicemia (Systemic disease associated with the presence of pathogenic microorganisms in the blood): Specify Organism ( ) Present on Admission ( ) Not present on admission ( ) Unable to clinically determine ( ) Sepsis Specify Organism Specify Associated Condition/Diagnosis ( ) Present on Admission ( ) Not present on admission ( ) Unable to clinically determine ( ) Severe Sepsis (Sepsis associated with acute organ dysfunction) Specify Organism Specify Associated Condition/Diagnosis ( ) Present on Admission ( ) Not present on admission ( ) Unable to clinically determine ( ) Septic Shock (Severe sepsis with acute circulatory failure, unexplained by other causes) () Present on Admission () Not present on admission () Unable to clinically determine ( ) Other, patient has: (x) Sepsis was Ruled Out Thank you for your time. Елена Worthington, [employer] CULTURIST
[2016-12-10] MEDS ORDERED: OMEG10007 PO (12:54)
[2016-12-10] MEDS ORDERED: PROP20TA67 PO (12:54)
[2016-12-10] MEDS ORDERED: GABA-112 PO (12:54)
[2016-12-10] MEDS ORDERED: HYDR-5688 PO (12:54)
[2017-03-29] MEDS ORDERED: PROP40TA5 PO (15:28)
== END 2016-11-24 18:20 | disposition home or self-care (01) | DRG 439 ==
LOC: ENRESERVTM → ENRESERVDT → C.EDB 19:43 → C.MS2W 22:26 → C.MS4W 11-20 22:12
PROVIDERS: ADMIT Hospitalist; ATTEND Internal Medicine
DX: K85.90 Acute pancreatitis without necrosis or infection, unspecified (principal); I85.10 Secondary esophageal varices without bleeding; E87.1 Hypo-osmolality and hyponatremia; K76.6 Portal hypertension; F10.239 Alcohol dependence with withdrawal, unspecified; R65.10 Systemic inflammatory response syndrome (SIRS) of non-infectious origin without acute organ dysfunction; E51.2 Wernicke's encephalopathy; N40.0 Benign prostatic hyperplasia without lower urinary tract symptoms; E87.6 Hypokalemia; K21.9 Gastro-esophageal reflux disease without esophagitis; E78.5 Hyperlipidemia, unspecified; F32.9 Major depressive disorder, single episode, unspecified; K70.30 Alcoholic cirrhosis of liver without ascites; D72.829 Elevated white blood cell count, unspecified; K42.9 Umbilical hernia without obstruction or gangrene; K31.89 Other diseases of stomach and duodenum; E11.9 Type 2 diabetes mellitus without complications; I10 Essential (primary) hypertension; R01.1 Cardiac murmur, unspecified; R14.0 Abdominal distension (gaseous); R74.0 Nonspecific elevation of levels of transaminase and lactic acid dehydrogenase [LDH]; E86.9 Volume depletion, unspecified; E78.00 Pure hypercholesterolemia, unspecified; Z85.46 Personal history of malignant neoplasm of prostate; Z90.79 Acquired absence of other genital organ(s); Z98.1 Arthrodesis status; Z79.1 Long term (current) use of non-steroidal anti-inflammatories (NSAID); Z79.84 Long term (current) use of oral hypoglycemic drugs; Z79.899 Other long term (current) drug therapy; Z79.891 Long term (current) use of opiate analgesic

== ENCOUNTER 2016-12-24 09:40 | Inpatient (IN) | payer OTHER ==
[2016-12-10 12:56] VITALS: BMI 26.0
--- NOTE | 2016-12-10 13:34 | PAT Medication Instructions ---
Service Date Dec 10, 2016. Current Home Medication List Amlodipine (Norvasc), 10 MG PO QAM Atorvastatin (Lipitor), 40 MG PO QPM Cyclobenzaprine Hcl (Flexeril), 10 MG PO BID PRN for Muscle Spasms Etodolac (Etodolac), 500 MG PO BID PRN for PAIN/INFLAMMATION Fish Oil ([place]-3), 1 CAP PO QAM Gabapentin (Neurontin), 100 MG PO TID Hydrocodone/Acetaminophen 5MG/325MG ([place] 5MG/325MG), 1 TABLET PO Q4-6H PRN for Pain Lisinopril (Lisinopril), 20 MG PO QAM Metformin Hcl (Glucophage), 1,000 MG PO BID Omeprazole (Prilosec), 20 MG PO QAM Propranolol (Inderal), 40 MG PO HS Venlafaxine Hcl (Effexor), 37.5 MG PO BID Medication Instructions For Your Scheduled Surgery Etodolac (Etodolac), 500 MG PO BID PRN for PAIN/INFLAMMATION (not taking currently) - Hold the following medications 2 weeks prior to surgery: Fish Oil ([place]-3), 1 CAP PO QAM - Hold the following medications 48 hours prior to surgery: Metformin Hcl (Glucophage), 1,000 MG PO BID - Hold the following medications the morning of surgery: Lisinopril (Lisinopril), 20 MG PO QAM Cyclobenzaprine Hcl (Flexeril), 10 MG PO BID PRN for Muscle Spasms - Take the following medications the morning of surgery with a sip of water: Venlafaxine Hcl (Effexor), 37.5 MG PO BID Omeprazole (Prilosec), 20 MG PO QAM Hydrocodone/Acetaminophen 5MG/325MG ([place] 5MG/325MG), 1 TABLET PO Q4-6H PRN for Pain (can take up four hours prior to surgery if needed) Gabapentin (Neurontin), 100 MG PO TID (if needed) Amlodipine (Norvasc), 10 MG PO QAM - Take the following medications as scheduled the night before surgery: Venlafaxine Hcl (Effexor), 37.5 MG PO BID Propranolol (Inderal), 40 MG PO HS Hydrocodone/Acetaminophen 5MG/325MG ([place] 5MG/325MG), 1 TABLET PO Q4-6H PRN for Pain Gabapentin (Neurontin), 100 MG PO TID Cyclobenzaprine Hcl (Flexeril), 10 MG PO BID PRN for Muscle Spasms Atorvastatin (Lipitor), 40 MG PO QPM If you have any questions please call us at [phone] or [phone] ( Janey) or [phone]
[2016-12-10 14:55] LABS: INR 1.1 (0.9-1.1); PARTIAL THROMBOPLASTIN RATIO 1.2; PROTHROMBIN TIME (PATIENT) 12.2 SECONDS (9.0-12.0)
--- NOTE | 2016-12-23 17:05 | HISTORY & PHYSICAL EXAMINATION ---
DATE OF ADMISSION: 12/24/2016 CHIEF COMPLAINT: He presents with low back and lower extremity difficulty and paresthesias, numbness, tingling and nerve root irritation. HISTORY OF PRESENT ILLNESS: Gary is a very pleasant 76-year-old male. He has some fairly significant degenerative changes with stenosis of the lumbar spine. Images positive at L3-L4, L4-L5, L5-S1 for some significant stenosis. He is currently immobile. He cannot even really stand up for any length of time. Difficulty walking any distance as well. We tried epidural steroid injections, medication as well as physical therapy, but nothing really seems to help in the short run. He describes no fevers, chills, sweats, bowel or bladder issues. PAST MEDICAL HISTORY: 1. Positive for hypertension. 2. Rheumatoid arthritis. 3. High cholesterol. PAST SURGICAL HISTORY: Includes spinal stenosis surgery done by Dr. Ledesma 2 years ago. He did well in the short run. ALLERGIES: None. No known drug allergies. CURRENT MEDICATIONS: Include glipizide, hydrochlorothiazide, lisinopril, atorvastatin, cyclobenzaprine. SOCIAL HISTORY: He is . Minimal alcohol use or tobacco use. Very active lifestyle. REVIEW OF SYSTEMS: MUSCULOSKELETAL: Positive for joint pain, stiffness and weakness. PHYSICAL EXAMINATION: CONSTITUTIONAL: He is 5 feet 10 inches, 175 pounds. He is in no apparent distress. PSYCHIATRIC: He is alert and oriented x3. RESPIRATORY: Lungs are clear to rales, rhonchi or wheezing upon auscultation. CARDIOVASCULAR: No abnormal heart sounds noted. Normal S1, S2, no S3. He has good distal pulses. NEUROLOGIC: Adequate motor strength and sensation of the extremities were normal. No neurological deficits. INTEGUMENTARY: Intact well-healed lumbar spine wound. Vascular structures are intact. MUSCULOSKELETAL: He has pain with percussion and palpation of the lumbar spine. This is most prominent over the L3 to the sacrum. Does have mechanical pain with flexion and extension as well [id number] bending as well. X-rays demonstrate a well decompressed spinal canal L4-L5 and L5-S1. He also has significant degenerative scoliosis. 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 PLAN: We are going to move forward with surgery for him, laminectomy and decompression at L3 down to S1. Possible fusion with instrumentation. He has failed conservative measures and at this point we think that surgery is the best option for him. We did describe the risks and benefits of surgery. We also talked about expectations and recovery times. We plan on being at [facility] for approximately 2 days prior to discharge. We did provide him with a lumbar back support for postop. Also provided him with pain medication as well for postop as well. We will follow him back up approximately in 10-14 days postop, suture removal and examination. I will follow him. JOSEY
[2016-12-24] VITALS (8 sets, daily range): BP systolic 127–153; BP diastolic 70–87; PULSE 79–120; TEMP 36.7–37; O2SAT 91–96; Ht 177.8 cm; Wt 83.7 kg
[~2016-12-24] VITALS: Ht 177.8 cm; Wt 83.7 kg
[~2016-12-24 09:40] MED LIST changes: -AMLO-110 PO; +AMLO-114 PO; -AMLO2.5T PO; -ATOR-24 PO; +ATOR-26 PO; +CEFAZOLIN 2000 MG/60 ML D5W 60 ML IV SCH; +CYCL10TA6 PO; +EFF/375 PO; +FENTANYL CITRATE INJ 50 MCG/1 ML 2 ML VIAL ONE; +GABA-112 PO; +HYDR-5688 PO; +LACTATED RINGER'S 1000ML IV SCH; +LDN500 PO; +LSN20 PO; +METF1000 PO; +NSS 1000ML IV SCH; +OMEG10007 PO; -PANT40TA PO; +PRLSR20 PO; +PROP20TA67 PO; -SERT50TA PO
[2016-12-24] MEDS ORDERED: BUPIVACAINE/EPINEPHRINE 0.5% MPF 1:200,000 30 ML VIAL ONE (11:44)
[2016-12-24] MEDS ORDERED: THROMBIN FOR SOLN 20000 UNIT KIT ONE (11:44)
[2016-12-24] MEDS ORDERED: VANCOMYCIN HCL 1000MG/20ML VIAL ONE (11:44)
[2016-12-24] MEDS ORDERED: GELATIN SPONGE SZ 100 ONE ×3 (11:44→14:05)
[2016-12-24] MEDS ORDERED: BACITRACIN 50000 UNIT VIAL ONE (11:45)
--- NOTE | 2016-12-24 12:12 | History & Physical Bridge Note ---
H&P Re-Evaluation Bridge Note: I have examined the patient, reviewed the History & Physical and in the interval since the performance of the History & Physical I have noted the following changes of clinical significance: No changes noted
[2016-12-24] MEDS ORDERED: HYDROmorphone INJ 2 MG/ML SYR/VIAL ONE (12:45)
[2016-12-24] MEDS ORDERED: LIDOCAINE HCL 2% 2 ML VIAL (20MG/ML) ONE (13:20)
[2016-12-24] MEDS ORDERED: ROCURONIUM BROMIDE 10 MG/ML 5 ML VIAL ONE (13:20)
[2016-12-24] MEDS ORDERED: DEXAMETHASONE SOD INJ 4 MG/ML VIAL ONE (13:20)
[2016-12-24] MEDS ORDERED: PROPOFOL IV EMULSION 10 MG/ML 20 ML VIAL IV ONE (13:20)
[2016-12-24] MEDS ORDERED: PHENYLEPHRINE HCL INJ 10 MG/ML VIAL ONE (13:24)
[2016-12-24] MEDS ORDERED: NEOSTIGMINE METHYLSULFATE 5 MG/5 ML SYR ONE (14:11)
[2016-12-24] MEDS ORDERED: GLYCOPYRROLATE INJ 0.2 MG/ML VIAL ONE (14:11)
--- NOTE | 2016-12-24 14:30 | DIAGNOSTIC IMAGING REPORT ---
LUMBAR SPINE, INTRAOPERATIVE FLUOROSCOPY HISTORY: Laminectomy. FLUOROSCOPY TIME: 3 seconds. FINDINGS: Intraoperative fluoroscopy was provided for the lumbar spine. 2 fluoroscopic spot images were obtained. IMPRESSION: Fluoroscopy provided for a L4-L5 laminectomy. Electronically signed by: Vel Quach M.D. 12/24/2016 2:29 PM Dictated Date/Time: 12/24/2016 2:28 PM
[2016-12-24] MEDS ORDERED: LORAZEPAM INJ 1 MG in SYRINGE 0.5 ML IV PRN (14:45)
[2016-12-24] MEDS ORDERED: ONDANSETRON INJ 2 MG/ML 2 ML VIAL IV PRN ×2 (14:45→15:15)
[2016-12-24] MEDS ORDERED: OXYCODONE/ACETAMINOPHEN 5-325 TAB PO PRN (14:45)
[2016-12-24] MEDS ORDERED: PROMETHAZINE HCL INJ 12.5 MG in SODIUM CHLORIDE 0.9% 50ML 50 ML IV PRN ×2 (14:45→15:15)
[2016-12-24] MEDS ORDERED: METOCLOPRAMIDE HCL INJ 5 MG/ML 2 ML VIAL IV PRN (14:45)
[2016-12-24] MEDS ORDERED: HYDROmorphone INJ 2 MG/ML SYR/VIAL IV PRN (14:45)
[2016-12-24] MEDS ORDERED: HYDROmorphone INJ 1 MG/ML SYR IV PRN ×2 (14:45→15:15)
[2016-12-24] MEDS ORDERED: ACETAMINOPHEN 325 MG TAB PO PRN (14:45)
[2016-12-24] MEDS ORDERED: LORAZEPAM 1 MG TAB PO PRN (14:45)
[2016-12-24] MEDS ORDERED: CYCLOBENZAPRINE HCL 10 MG TAB PO PRN (14:45)
[2016-12-24] MEDS ORDERED: MAGNESIUM HYDROXIDE SUSP 30 ML UDC PO PRN (14:45)
--- NOTE | 2016-12-24 14:46 | [facility] Post Operative Brief Note ---
Immediate Operative Summary Operative Date Dec 24, 2016. Pre-Operative Diagnosis SPINAL STENOSIS Post-Operative Diagnosis SAME PREOP Procedure(s) Performed L3-S1 LAMINECTOMY, PROPHYLACTIC USE OF DURASEAL; fusion L3-[address] Kaitlin RICH Day Care Provider Surgeon(s) Dony DAILEY PAC Estimated Blood Loss 350ml Specimens NONE Complication(s) None Disposition Recovery Room / PACU
--- NOTE | 2016-12-24 15:12 | OPERATIVE REPORT ---
DATE OF OPERATION: 12/24/2016 PREOPERATIVE DIAGNOSIS: Severe stenosis L3, L4, L5 lumbar spine. POSTOPERATIVE DIAGNOSIS: Same. PROCEDURES: Include a laminectomy L3, L4, L5 and S1 lumbar spine. SURGEON: Dr. Kuo. DIRECTOR [employer]ERONAUTICS COMMISSION: Sam Becker PA-C. SECONDARY PROCEDURE: Posterolateral noninstrumented fusion bone graft only L3, L4, and L5. BLOOD LOSS: 350 mL. COMPLICATIONS: Zero complications. I used DuraSeal at the end of the procedure prophylactically. ANESTHETIC: General. COUNTS: Sponge and needle count correct at the close of the procedure. DESCRIPTION OF PROCEDURE: The patient was taken to the operating room, a general intubated anesthetic provided. The patient placed prone, scrubbed, prepped, draped sterile. We made a skin incision from roughly L2 down to the sacrum dissecting the soft tissue in the same plane, put in a deep self-retaining retractor. We had to use revision strategies at every aspect of the case, curettes, I used a high speed horacio frequently to horacio down the lamina, there were scar tissue, there was redundant ligamentum flavum that was old surgery. We persevered, I was pleased with the decompression of nerve roots from L3 down to the sacrum. We then irrigated. I assessed stability. I felt there were some minor instability of the spine but not major instability, thus I bone grafted the patient from L3 down to L5. I used a combination of allograft, autograft and demineralized bone matrix, DBM. We irrigated and closed over Hemovac drain and vancomycin powder with #1 Vicryl suture, 2-0 in the subcuticular layer, staple gun on the skin. Sterile dressings applied. The patient returned to PACU stable. No apparent interoperative complications as stated earlier. I attest to the content of the Intraoperative Record and any orders documented therein. Any exceptio ns are noted below.
[2016-12-24] MEDS ORDERED: LABETALOL HCL IV 5 MG/ML 20ML IV PRN (15:15)
[2016-12-24] MEDS ORDERED: EpHEDrine SULFATE INJ 50 MG/ML AMP IV PRN (15:15)
[2016-12-24] MEDS ORDERED: NALOXONE HCL 0.4 MG/1 ML VIAL/CARP IV PRN (15:15)
[2016-12-24] MEDS ORDERED: ATROPINE SULFATE 0.1 MG/ML 5ML SYR IV PRN (15:15)
--- NOTE | 2016-12-24 15:28 | Anesthesiology Progress Note ---
Anesthesia Post Op Note Date & Time Dec 24, 2016 at 15:28 Vital Signs Pain Intensity: 3 Vital Signs Past 12 Hours Date Time Temp Pulse Resp B/P Pulse Ox O2 Delivery O2 Flow Rate FiO2 12/24/16 14:51 36.9 84 16 153/88 99 Mask 10 12/24/16 10:02 36.7 84 18 145/85 96 Room Air Notes Mental Status: alert / awake / arousable, participated in evaluation Pt Amnestic to Procedure: Yes Nausea / Vomiting: adequately controlled Pain: adequately controlled Airway Patency, RR, SpO2: stable & adequate BP & HR: stable & adequate Hydration State: stable & adequate Anesthetic Complications: no major complications apparent
[2016-12-24] MEDS ORDERED: IV FLUIDS COMPLETED PRN (15:30)
[2016-12-24] MEDS: SODIUM CHLORIDE 0.9% 1000ML 1,000 ML IV SCH (18:19)
[2016-12-24] MEDS ORDERED: PROPRANOLOL HCL 10 MG TAB PO ONE (19:00)
[2016-12-24] MEDS ORDERED: GLUCOSE 10 TABS/TUBE PO PRN (19:15)
[2016-12-24] MEDS ORDERED: GLUCAGON FOR INJ 1 MG VIAL SQ PRN (19:15)
[2016-12-24] MEDS ORDERED: DEXTROSE 50% 50 ML SYR IV PRN (19:15)
[2016-12-24] MEDS ORDERED: GLUCOSE 40% GEL 15 GM TUBE PO PRN (19:15)
[2016-12-24 19:23] LABS: EOS % 0.2 %; HEMATOCRIT 33.8 % (42-52); IG% 0.2 %; LYMPH % 17.2 %; MEAN CELL VOLUME 81.1 fL (80-100); MEAN CORPUSCULAR HEMOGLOBIN 26.9 pg (25-34); MEAN PLATELET VOLUME 10.5 fL (7.4-10.4); MONO % 1.3 %; NEUT % 81.1 %; PLATELET COUNT 147 K/uL (130-400); RED BLOOD COUNT 4.17 M/uL (4.7-6.1); WHITE BLOOD COUNT 5.22 K/uL (4.8-10.8)
[2016-12-24 19:25] LABS: COMPLETE YES; MEAN CORPUSCULAR HGB CONC 33.1 g/dl (32-36)
[2016-12-24 19:43] LABS: BUN/CREATININE RATIO 9.6 (10-20); CALCIUM 8.5 mg/dl (8.5-10.1); CREATININE 0.97 mg/dl (0.60-1.40); MAGNESIUM 1.4 mg/dl (1.8-2.4); POTASSIUM 4.3 mmol/L (3.5-5.1)
[2016-12-24] MEDS: DEXAMETHASONE INJ 10 MG in SYRINGE 0 ML IV SCH (20:03)
[2016-12-24] MEDS: CEFAZOLIN IV 2,000 MG in DEXTROSE 5% 50ML 50 ML IV SCH (20:11)
[2016-12-24] MEDS ORDERED: PROPRANOLOL HCL 20 MG TAB PO SCH (21:00)
[2016-12-24] MEDS ORDERED: METFORMIN HCL 500 MG TAB PO SCH (21:00)
[2016-12-24] MEDS: ATORVASTATIN 40 MG TAB PO SCH (21:08)
[2016-12-24] MEDS: OXYCODONE/ACETAMINOPHEN 5-325 TAB PO PRN (21:08)
[2016-12-24] MEDS: PANTOprazole SOD 40 MG TAB PO SCH (21:09)
[2016-12-24] MEDS: VENLAFAXINE HCL 37.5 MG TAB PO SCH (21:09)
[2016-12-24] MEDS: GABAPENTIN 100 MG CAP PO SCH (21:10)
[2016-12-24] MEDS: INSULIN ASPART 100 UNITS/ML 3 ML PEN SC SCH (21:41)
--- NOTE | 2016-12-24 21:42 | Medical Consult ---
Consultation Date of Consultation: Dec 24, 2016. Attending Physician: Samy Kuo DO Reason for Consultation: Postoperative medical management. History of Present Illness The patient is a 76-year-old male who underwent an L4- [address] Kuo earlier in the day today. Seen postoperatively, he has no complaints. He reports that his pain is under good control, that he has a good appetite and will be able to eat and drink normally. Past Medical/Surgical History Medical Problems: (1) Acute pancreatitis Status: Acute (2) Alcohol consumption heavy Status: Acute Social History Smoking Status: Never Smoker Drug Use: none Marital Status: Housing Status: lives with family Occupation Status: retired Allergies Coded Allergies: Simvastatin (Unverified Allergy, Unknown, per PCP records , 12/24/16) Current Inpatient Medications Current Inpatient Medications Medications (Trade) Dose Ordered Sig/Sandra Route Start Time Stop Time Status Last Admin Dose Admin Acetaminophen (Tylenol Tab) 650 mg Q6H PRN PO 12/24/16 14:45 01/23/17 14:44 Hydromorphone HCl (Dilaudid Inj) 1 mg Q3H PRN IV 12/24/16 14:45 01/07/17 14:44 Hydromorphone HCl 1.5 mg 1.5 mg Q3H PRN IV 12/24/16 14:45 01/07/17 14:44 Promethazine HCl/ Sodium Chloride (Phenergan Inj/ Nss 50ml) 50.5 ml @ 202 mls/hr Q6H PRN IV 12/24/16 14:45 01/23/17 14:44 Ondansetron HCl (Zofran Inj) 4 mg Q6H PRN IV 12/24/16 14:45 01/23/17 14:44 Metoclopramide HCl (Reglan Inj) 10 mg Q6H PRN IV 12/24/16 14:45 01/23/17 14:44 Lorazepam 1 mg 1 mg Q6H PRN PO 12/24/16 14:45 01/23/17 14:44 Lorazepam/Syringe (Ativan Inj/ Syringe) 1 ml @ 1 mls/min Q6H PRN IV 12/24/16 14:45 01/23/17 14:44 Polyethylene (Miralax Powder Packet) 17 gm DAILY PO 12/25/16 09:00 01/24/17 08:59 Bisacodyl (Dulcolax Tab) 5 mg DAILY PRN PO 12/25/16 06:00 01/24/17 05:59 Bisacodyl (Dulcolax Supp) 10 mg DAILY PRN DE 12/25/16 06:00 01/24/17 05:59 Magnesium Hydroxide (Milk Of Magnesia Susp) 30 ml DAILY PRN PO 12/24/16 14:45 01/23/17 14:44 Diphenhydramine HCl (Benadryl Cap) 25 mg Q6H PRN PO 12/24/16 14:45 01/23/17 14:44 Oxycodone/ Acetaminophen (Percocet 5-325mg Tab) 1 tab Q4H PRN PO 12/24/16 14:45 01/07/17 14:44 Oxycodone/ Acetaminophen 2 tab 2 tab Q4H PRN PO 12/24/16 14:45 01/07/17 14:44 12/24/16 21:08 2 TAB Cefazolin Sodium 2000 mg/Dextrose 60 ml @ 100 mls/hr Q8H IV 12/24/16 20:00 12/25/16 12:35 12/24/16 20:11 100 MLS/HR Dexamethasone Sodium Phosphate 10 mg/Syringe 2.5 ml @ 1 mls/min Q8H IV 12/24/16 20:00 12/26/16 04:03 12/24/16 20:03 1 MLS/MIN Sodium Chloride (Nss 1000ml) 1,000 ml @ 80 mls/hr [id number] IV 12/24/16 14:44 01/23/17 14:43 12/24/16 18:19 80 MLS/HR Atorvastatin Calcium (Lipitor Tab) 40 mg QPM PO 12/24/16 21:00 01/23/17 20:59 12/24/16 21:08 40 MG Cyclobenzaprine HCl (Flexeril Tab) 10 mg BID PRN PO 12/24/16 14:45 01/23/17 14:44 Gabapentin (Neurontin Cap) 100 mg TID PO 12/24/16 21:00 01/23/17 20:59 12/24/16 21:10 100 MG Lisinopril (Zestril Tab) 20 mg QAM PO 12/25/16 09:00 01/24/17 08:59 Propranolol HCl (Inderal Tab) 40 mg HS PO 12/24/16 21:00 01/23/17 20:59 Future hold Venlafaxine HCl (effeXOR TAB) 37.5 mg BID PO 12/24/16 21:00 01/23/17 20:59 12/24/16 21:09 37.5 MG Miscellaneous Information (Order Awaiting Action) 1 ea QS N/A 12/25/16 00:00 01/24/17 00:00 Miscellaneous (Iv Fluids Completed) 1 ea PRN PRN N/A 12/24/16 15:30 12/24/17 15:29 Pantoprazole Sodium (Protonix Tab) 40 mg BID PO 12/24/16 21:00 01/23/17 20:59 12/24/16 21:09 40 MG Insulin Aspart (novoLOG ASPART) SLIDING SCALE If C... ACHS SC 12/24/16 21:00 01/23/17 20:59 Glucose (Glucose 40% Gel) UD PRN PO 12/24/16 19:15 01/23/17 19:14 Glucose (Glucose Chew Tab) 1 tabs UD PRN PO 12/24/16 19:15 01/23/17 19:14 Dextrose (Dextrose 50% 50ML Syringe) 50 ml UD PRN IV 12/24/16 19:15 01/23/17 19:14 Glucagon 1 mg 1 mg UD PRN SQ 12/24/16 19:15 01/23/17 19:14 Magnesium Sulfate/ Prmx (Magnesium Sulfate/Premixed D5W) 100 ml @ 100 mls/hr NOW STAT IV 12/24/16 21:28 12/24/16 22:27 UNV Review of Systems The patient denies chest pain, palpitations, shortness of breath, cough, lower extremity swelling, vision change, hearing change, sore throat, fevers, chills, sweats, weight change, fatigue, nausea, vomiting, abdominal pain, pelvic pain, blood in urine or stool, dysuria, urinary frequency or urgency, lightheadedness , dizziness, headache, memory loss, rash, abnormal bruising or bleeding, imbalance, focal or generalized weakness, arthralgias or myalgias, night sweats , or allergy symptoms. He continues to have his usual neck pain, stiffness, decreased range of motion and upper extremity tingling. The review of systems is otherwise negative other than for that already noted above, and at least 10 systems have been reviewed. Physical Exam Date Time Temp Pulse Resp B/P Pulse Ox O2 Delivery O2 Flow Rate FiO2 12/24/16 19:28 36.9 119 18 152/87 95 Nasal Cannula 2.0 12/24/16 18:46 120 18 150/77 95 Nasal Cannula 2.0 12/24/16 18:30 37.0 120 18 149/75 93 Nasal Cannula 2.0 12/24/16 17:24 37.0 111 17 153/81 93 Nasal Cannula 2.0 12/24/16 16:55 37.0 109 18 127/70 94 Nasal Cannula 2.0 12/24/16 16:48 Nasal Cannula 12/24/16 16:46 Nasal Cannula 2.0 12/24/16 16:15 36.9 107 18 138/72 91 Nasal Cannula 2.0 12/24/16 16:00 106 20 107/65 93 Nasal Cannula 2 12/24/16 15:50 101 12 129/79 93 Nasal Cannula 2 12/24/16 15:40 36.4 102 12 111/76 95 Nasal Cannula 2 12/24/16 15:30 99 20 118/81 95 Nasal Cannula 2 12/24/16 15:20 99 16 110/78 93 Nasal Cannula 2 12/24/16 15:10 96 15 107/70 99 Nasal Cannula 2 12/24/16 15:00 89 12 132/75 99 Mask 10 150/69 12/24/16 14:51 36.9 84 16 153/88 99 Mask 10 12/24/16 10:02 36.7 84 18 145/85 96 Room Air The patient is awake, well-developed and adequately nourished, alert and oriented 3, normocephalic and atraumatic, lying in bed and in no acute distress. HEENT--PERRL, EOMI, mucous membranes and oropharynx moist. Neck--supple, no JVD or bruits, thyroid normal, trachea midline, no adenopathy. Heart--normal S1 and S2, no extra beats, no murmurs, rubs or gallops. Lungs--clear bilaterally with good air movement, no respiratory distress, no accessory muscle use. Abdomen--normal bowel sounds and soft, nontender and nondistended, no hernias or masses, no organomegaly. Extremities--no cyanosis, clubbing or edema. There are good distal pulses b/l. Dermatologic--normal skin turgor, normal color, warm and dry, no abnormal lymph nodes, no rash. Neurologic--cranial nerves II through XII grossly intact. Rheumatologic--limited exam due to recent surgery. Psychiatric--normal affect. Laboratory Results Last 24 Hours Test 12/24/16 10:00 12/24/16 14:56 12/24/16 17:21 12/24/16 19:15 Bedside Glucose 168 mg/dl 164 mg/dl 218 mg/dl White Blood Count 5.22 K/uL Red Blood Count 4.17 M/uL Hemoglobin 11.2 g/dL Hematocrit 33.8 % Mean Corpuscular Volume 81.1 fL Mean Corpuscular Hemoglobin 26.9 pg Mean Corpuscular Hemoglobin Concent 33.1 g/dl Platelet Count 147 K/uL Mean Platelet Volume 10.5 fL Neutrophils (%) (Auto) 81.1 % Lymphocytes (%) (Auto) 17.2 % Monocytes (%) (Auto) 1.3 % Eosinophils (%) (Auto) 0.2 % Basophils (%) (Auto) 0.0 % Neutrophils # (Auto) 4.23 K/uL Lymphocytes # (Auto) 0.90 K/uL Monocytes # (Auto) 0.07 K/uL Eosinophils # (Auto) 0.01 K/uL Basophils # (Auto) 0.00 K/uL RDW Standard Deviation 43.9 fL RDW Coefficient of Variation 14.9 % Immature Granulocyte % (Auto) 0.2 % Immature Granulocyte # (Auto) 0.01 K/uL Sodium Level 137 mmol/L Potassium Level 4.3 mmol/L Chloride Level 101 mmol/L Carbon Dioxide Level 22 mmol/L Anion Gap 14.0 mmol/L Blood Urea Nitrogen 9 mg/dl Creatinine 0.97 mg/dl Est Creatinine Clear Calc Drug Dose 69.0 ml/min Estimated GFR () 88.8 Estimated GFR (Non- 76.6 BUN/Creatinine Ratio 9.6 Random Glucose 256 mg/dl Calcium Level 8.5 mg/dl Magnesium Level 1.4 mg/dl Test 12/24/16 20:37 Bedside Glucose 260 mg/dl Assessment & Plan The patient is seen status post L4 5 laminectomy without complaints. Tachycardia/hypertension/hypomagnesemia--the patient is not symptomatic, but he did develop a heart rate up to 120 postoperatively. He was begun on IV fluids, and when laboratory showed a low magnesium of 1.4, he was given 3 g of magnesium IV. In addition, amlodipine 10 mg by mouth daily is discontinued. He will continue lisinopril 10 mg by mouth daily, and will increase his propranolol from 40 mg by mouth at bedtime, to 40 mg by mouth now, and increase his usual dose to 40 mg by mouth twice a day. Diabetes mellitus--continue glipizide 10 mg by mouth twice a day with meals, and hold metformin 1000 g by mouth twice a day. He is presently getting Decadron 10 mg IV every 8 hours, which has increased his blood sugar dramatically. He will therefore be started on Lantus insulin 14 units subcutaneous at bedtime, beginning tonight, and may need to have more aggressive addition in the a.m. as well. BPH--continue finasteride 5 mg by mouth daily and tamsulosin 0.4 mg by mouth at bedtime Anxiety--continue venlafaxine 37.5 mg by mouth twice a day. Hypercholesterolemia--continue atorvastatin 40 mg by mouth every afternoon. GERD--change Prilosec 20 mg by mouth daily to pantoprazole 40 mg by mouth daily..
[2016-12-24] MEDS: MAGNESIUM SULFATE 1GM / D5W 1 GM in PREMIXED IN D5W 100 ML IV SCH ×2 (21:45→23:15)
[2016-12-24] MEDS ORDERED: INSULIN GLARGINE SOLOSTAR 100 UNITS/ML 3 ML PEN SC ONE (22:00)
[2016-12-25] VITALS (7 sets, daily range): BP systolic 130–154; BP diastolic 70–92; PULSE 76–91; TEMP 36.7–37.3; O2SAT 91–96
[2016-12-25] MEDS: MAGNESIUM SULFATE 1GM / D5W 1 GM in PREMIXED IN D5W 100 ML IV SCH (00:30)
[2016-12-25] MEDS: OXYCODONE/ACETAMINOPHEN 5-325 TAB PO PRN ×3 (03:44→14:57)
[2016-12-25] MEDS: SODIUM CHLORIDE 0.9% 1000ML 1,000 ML IV SCH (03:45)
[2016-12-25] MEDS: DEXAMETHASONE INJ 10 MG in SYRINGE 0 ML IV SCH ×3 (03:45→19:35)
[2016-12-25] MEDS: CEFAZOLIN IV 2,000 MG in DEXTROSE 5% 50ML 50 ML IV SCH ×2 (03:51→12:02)
[2016-12-25] MEDS ORDERED: BISACODYL 10 MG SUPP PR PRN (06:00)
[2016-12-25] MEDS ORDERED: BISACODYL 5 MG TABEC PO PRN (06:00)
--- NOTE | 2016-12-25 08:14 | Hospitalist Progress Note ---
Hospitalist Progress Note Date of Service Dec 25, 2016. Subjective Pt evaluation today including: conversation w/ patient, conversation w/ family , physical exam, chart review, lab review, review of inpatient medication list Voiding: no voiding problems, no incontinence Patient states he is feeling well. Back pain is well controlled. He is eating and drinking OK. +flatus, No BM postop. Patient denies any fever, chills, sweats , lightheadedness, dizziness, vision changes, CP, palpitations, edema, SOB, wheezing, cough, abdominal pain, nausea, vomiting, diarrhea, urinary symptoms, melena, numbness/tingling, weakness, anxiety/depression, active bleeding, or new skin discoloration/changes. Medications Current Inpatient Medications Medications (Trade) Dose Ordered Sig/Sandra Route Start Time Stop Time Status Last Admin Dose Admin Acetaminophen (Tylenol Tab) 650 mg Q6H PRN PO 12/24/16 14:45 01/23/17 14:44 Hydromorphone HCl (Dilaudid Inj) 1 mg Q3H PRN IV 12/24/16 14:45 01/07/17 14:44 Hydromorphone HCl 1.5 mg 1.5 mg Q3H PRN IV 12/24/16 14:45 01/07/17 14:44 Promethazine HCl/ Sodium Chloride (Phenergan Inj/ Nss 50ml) 50.5 ml @ 202 mls/hr Q6H PRN IV 12/24/16 14:45 01/23/17 14:44 Ondansetron HCl (Zofran Inj) 4 mg Q6H PRN IV 12/24/16 14:45 01/23/17 14:44 Metoclopramide HCl (Reglan Inj) 10 mg Q6H PRN IV 12/24/16 14:45 01/23/17 14:44 Lorazepam 1 mg 1 mg Q6H PRN PO 12/24/16 14:45 01/23/17 14:44 Lorazepam/Syringe (Ativan Inj/ Syringe) 1 ml @ 1 mls/min Q6H PRN IV 12/24/16 14:45 01/23/17 14:44 Polyethylene (Miralax Powder Packet) 17 gm DAILY PO 12/25/16 09:00 01/24/17 08:59 12/25/16 08:46 17 GM Bisacodyl (Dulcolax Tab) 5 mg DAILY PRN PO 12/25/16 06:00 01/24/17 05:59 Bisacodyl (Dulcolax Supp) 10 mg DAILY PRN IN 12/25/16 06:00 01/24/17 05:59 Magnesium Hydroxide (Milk Of Magnesia Susp) 30 ml DAILY PRN PO 12/24/16 14:45 01/23/17 14:44 Diphenhydramine HCl (Benadryl Cap) 25 mg Q6H PRN PO 12/24/16 14:45 01/23/17 14:44 Oxycodone/ Acetaminophen (Percocet 5-325mg Tab) 1 tab Q4H PRN PO 12/24/16 14:45 01/07/17 14:44 Oxycodone/ Acetaminophen 2 tab 2 tab Q4H PRN PO 12/24/16 14:45 01/07/17 14:44 12/25/16 08:55 2 TAB Cefazolin Sodium 2000 mg/Dextrose 60 ml @ 100 mls/hr Q8H IV 12/24/16 20:00 12/25/16 12:35 12/25/16 03:51 100 MLS/HR Dexamethasone Sodium Phosphate 10 mg/Syringe 2.5 ml @ 1 mls/min Q8H IV 12/24/16 20:00 12/26/16 04:03 12/25/16 03:45 1 MLS/MIN Sodium Chloride (Nss 1000ml) 1,000 ml @ 80 mls/hr [id number] IV 12/24/16 14:44 01/23/17 14:43 12/25/16 03:45 80 MLS/HR Atorvastatin Calcium (Lipitor Tab) 40 mg QPM PO 12/24/16 21:00 01/23/17 20:59 12/24/16 21:08 40 MG Cyclobenzaprine HCl (Flexeril Tab) 10 mg BID PRN PO 12/24/16 14:45 01/23/17 14:44 Gabapentin (Neurontin Cap) 100 mg TID PO 12/24/16 21:00 01/23/17 20:59 12/25/16 08:46 100 MG Lisinopril (Zestril Tab) 20 mg QAM PO 12/25/16 09:00 01/24/17 08:59 12/25/16 08:45 20 MG Propranolol HCl (Inderal Tab) 40 mg HS PO 12/24/16 21:00 01/23/17 20:59 Future hold Venlafaxine HCl (effeXOR TAB) 37.5 mg BID PO 12/24/16 21:00 01/23/17 20:59 12/25/16 08:46 37.5 MG Miscellaneous Information (Order Awaiting Action) 1 ea QS N/A 12/25/16 00:00 01/24/17 00:00 Miscellaneous (Iv Fluids Completed) 1 ea PRN PRN N/A 12/24/16 15:30 12/24/17 15:29 Pantoprazole Sodium (Protonix Tab) 40 mg BID PO 12/24/16 21:00 01/23/17 20:59 12/25/16 08:46 40 MG Insulin Aspart (novoLOG ASPART) SLIDING SCALE If C... ACHS SC 12/24/16 21:00 01/23/17 20:59 12/25/16 08:54 8 UNITS Glucose (Glucose 40% Gel) UD PRN PO 12/24/16 19:15 01/23/17 19:14 Glucose (Glucose Chew Tab) 1 tabs UD PRN PO 12/24/16 19:15 01/23/17 19:14 Dextrose (Dextrose 50% 50ML Syringe) 50 ml UD PRN IV 12/24/16 19:15 01/23/17 19:14 Glucagon (Glucagon Inj) 1 mg UD PRN SQ 12/24/16 19:15 01/23/17 19:14 Glipizide (Glucotrol Tab) 10 mg BIDM PO 12/25/16 08:30 01/24/17 08:29 12/25/16 08:46 10 MG Insulin Glargine (Lantus Solostar Pen) 14 unit BID SC 12/25/16 09:00 01/24/17 08:59 12/25/16 08:55 14 UNIT Objective Vital Signs Date Time Temp Pulse Resp B/P Pulse Ox O2 Delivery O2 Flow Rate FiO2 12/25/16 07:52 36.9 76 18 142/92 93 Room Air 12/25/16 07:50 93 Room Air 12/25/16 03:38 37.0 78 16 139/70 91 Room Air 12/25/16 00:10 Room Air 12/24/16 23:02 36.9 79 16 133/72 91 Room Air 12/24/16 21:45 Nasal Cannula 2.0 12/24/16 19:28 36.9 119 18 152/87 95 Nasal Cannula 2.0 12/24/16 18:46 120 18 150/77 95 Nasal Cannula 2.0 12/24/16 18:30 37.0 120 18 149/75 93 Nasal Cannula 2.0 12/24/16 17:24 37.0 111 17 153/81 93 Nasal Cannula 2.0 12/24/16 16:55 37.0 109 18 127/70 94 Nasal Cannula 2.0 12/24/16 16:48 Nasal Cannula 12/24/16 16:46 Nasal Cannula 2.0 12/24/16 16:15 36.9 107 18 138/72 91 Nasal Cannula 2.0 12/24/16 16:00 106 20 107/65 93 Nasal Cannula 2 12/24/16 15:50 101 12 129/79 93 Nasal Cannula 2 12/24/16 15:40 36.4 102 12 111/76 95 Nasal Cannula 2 12/24/16 15:30 99 20 118/81 95 Nasal Cannula 2 12/24/16 15:20 99 16 110/78 93 Nasal Cannula 2 12/24/16 15:10 96 15 107/70 99 Nasal Cannula 2 12/24/16 15:00 89 12 132/75 99 Mask 10 150/69 12/24/16 14:51 36.9 84 16 153/88 99 Mask 10 12/24/16 10:02 36.7 84 18 145/85 96 Room Air Physical Exam General Appearance: no apparent distress Eyes: normal inspection, PERRL ENT: hearing grossly normal Neck: supple Respiratory/Chest: lungs clear, no respiratory distress, no accessory muscle use Cardiovascular: regular rate, rhythm, + systolic murmur Abdomen: normal bowel sounds, non tender, soft Extremities: no pedal edema, no calf tenderness Neurologic/Psychiatric: alert, normal mood/affect, oriented x 3 Skin: normal color, warm/dry, no rash Laboratory Results Last 24 Hours Test 12/24/16 10:00 12/24/16 14:56 12/24/16 17:21 12/24/16 19:15 Bedside Glucose 168 mg/dl 164 mg/dl 218 mg/dl White Blood Count 5.22 K/uL Red Blood Count 4.17 M/uL Hemoglobin 11.2 g/dL Hematocrit 33.8 % Mean Corpuscular Volume 81.1 fL Mean Corpuscular Hemoglobin 26.9 pg Mean Corpuscular Hemoglobin Concent 33.1 g/dl Platelet Count 147 K/uL Mean Platelet Volume 10.5 fL Neutrophils (%) (Auto) 81.1 % Lymphocytes (%) (Auto) 17.2 % Monocytes (%) (Auto) 1.3 % Eosinophils (%) (Auto) 0.2 % Basophils (%) (Auto) 0.0 % Neutrophils # (Auto) 4.23 K/uL Lymphocytes # (Auto) 0.90 K/uL Monocytes # (Auto) 0.07 K/uL Eosinophils # (Auto) 0.01 K/uL Basophils # (Auto) 0.00 K/uL RDW Standard Deviation 43.9 fL RDW Coefficient of Variation 14.9 % Immature Granulocyte % (Auto) 0.2 % Immature Granulocyte # (Auto) 0.01 K/uL Sodium Level 137 mmol/L Potassium Level 4.3 mmol/L Chloride Level 101 mmol/L Carbon Dioxide Level 22 mmol/L Anion Gap 14.0 mmol/L Blood Urea Nitrogen 9 mg/dl Creatinine 0.97 mg/dl Est Creatinine Clear Calc Drug Dose 69.0 ml/min Estimated GFR () 88.8 Estimated GFR (Non- 76.6 BUN/Creatinine Ratio 9.6 Random Glucose 256 mg/dl Calcium Level 8.5 mg/dl Magnesium Level 1.4 mg/dl Test 12/24/16 20:37 Bedside Glucose 260 mg/dl Assessment and Plan The patient is a 76-year-old male who underwent an L4- [address] Kuo on 12/25. - PT/OT, pain management, and DVT prophylaxis as per primary team - Follow CBC, PRP Tachycardia postop, resolved: - Increased Propranolol from 40 mg PO HS to 40 mg PO BID--> HR well controlled HTN: - Amlodipine 10 mg PO daily held - Continue Lisinopril 10 mg PO daily Hypomagnesemia: - Mag of 1.4 on 12/25--> given 3 gm IV Mag - Follow mag level - Replete with IV mag PRN T2DM: - Glipizide 10 mg PO BID--> per patient, PCP discontinued this medication - Hold Metformin 1000 g PO BID, resume at discharge - Receiving Decadron 10 mg IV every 8 hours, which has increased his blood sugar dramatically--> start on Lantus insulin 14 units SQ BID--> titrate as needed - BSG ACHS w/ sliding insulin scale - Check ha1c Systolic murmur: - Does not follow with cardiology - ECHO 11/19/16- The left ventricle is hyperdynamic. No regional wall motion abnormalities noted. Ejection Fraction = >70 %. There is moderate concentric left ventricular hypertrophy. Aortic valve sclerosis moderate, without significant aortic valvular stenosis - f/u w/ PCP Alcoholic cirrhosis/esophageal varices: - Continue Propranolol - Alcohol abuse- patient was seen in early nov due to alcoholic pancreatitis- denies alcohol use since--> counselled on importance of avoiding alcohol use - Follows with Dr. Aggarwal BPH: Continue Finasteride 5 mg PO daily and Tamsulosin 0.4 mg PO HS Depression: Continue Venlafaxine 37.5 mg PO BID Hypercholesterolemia: Continue Atorvastatin 40 mg PO daily GERD: Change Prilosec 20 mg by mouth daily to Pantoprazole 40 mg PO daily DVT prophylaxis: As per primary team Dispo: Discharge as per primary team
[2016-12-25] MEDS: LISINOPRIL 20 MG TAB PO SCH (08:45)
[2016-12-25] MEDS: VENLAFAXINE HCL 37.5 MG TAB PO SCH ×2 (08:46→21:11)
[2016-12-25] MEDS: GABAPENTIN 100 MG CAP PO SCH ×3 (08:46→21:10)
[2016-12-25] MEDS: POLYETHYLENE (MIRALAX) 17 GM PACK PO SCH (08:46)
[2016-12-25] MEDS: PANTOprazole SOD 40 MG TAB PO SCH ×2 (08:46→21:13)
[2016-12-25 08:50] LABS: HEMATOCRIT 34.6 % (42-52)
[2016-12-25] MEDS: INSULIN ASPART 100 UNITS/ML 3 ML PEN SC SCH ×4 (08:54→21:08)
[2016-12-25] MEDS: INSULIN GLARGINE SOLOSTAR 100 UNITS/ML 3 ML PEN SC SCH ×2 (08:55→21:08)
[2016-12-25] MEDS ORDERED: AMLODIPINE BESYLATE 5 MG TAB PO SCH (09:00)
[2016-12-25] MEDS ORDERED: PANTOprazole SOD 40 MG TAB PO SCH (09:00)
--- NOTE | 2016-12-25 09:42 | Discharge Instructions ---
Discharge Instructions Date of Service Dec 25, 2016. Admission Reason for Admission: Lumbar Spinal Stenosis Discharge Discharge Diagnosis / Problem: stenosis Discharge Goals Goal(s): Improve function Activity Recommendations Activity Limitations: as noted below Lifting Limitations: no more than 5 pounds Exercise/Sports Limitations: until after follow-up appointment May Resume Sexual Activity: after follow-up appointment Shower/Bathe: keep incision dry Driving or Machine Use: . Instructions / Follow-Up Instructions / Follow-Up MEDICATIONS: Please take your prescriptions as instructed at your pre-op appointment. SPECIAL CARE: The following information is intended to answer some of the common questions and concerns regarding your surgery. Each patient is an individual and receives individual counselling throughout the course of treatment, from diagnosis to surgery all the way through recovery. What follows is not an exhaustive list, but should be a useful guide to some of the common questions and concerns patients have regarding their surgeries. These are not provided to keep you from calling us; rather, they give you something accurate and concrete to reference as you recover from your procedure. If you need us, we are available to you. As always, if you are not sure about something, call us at [phone]. MEDICAL EMERGENCIES: For these conditions, call 911 or go to your local hospital-based Emergency Department - not [facility] or equivalent. * Paralysis * Severe chest pain or difficulty breathing * Swelling or redness of either leg Spine procedures can be rather complex and though complications are rare, they do occur. In such cases, effective advice regarding emergency situations cannot always be addressed over the telephone. You may be referred to the emergency department for more effective management of your problem. Activity Limitations: It is important to give your body time to heal, so please limit your activities : * In general, don't do anything that moves your spine too much. You should avoid contact sports, twisting or heavy lifting while you recover. * 5-10 pounds is all you should attempt to lift. * You should not plan on driving for approximately 3 weeks and you should avoid traveling more than 30-45 minutes at a time. Longer trips should be broken down with walking breaks spaced appropriately. * Physical therapy is not usually required. * Walking and good posture practices will help you recover and regain your function. * Avoid straining or sudden changes in position. * In general, the goal is to take it easy and recover. Don't cause any new problems. Just relax. Showers: * Do not take a bath, use a Jacuzzi or hot tub or otherwise submerge your incision. * It is usually safe to take a shower 4-5 days after your surgery. * Your incision does not require any special creams or ointments. * Simply clean it with soap and water, dry and re-dress with a clean bandage afterwards. Incision: * Keep incision clean, dry and protected until your first follow-up appointment. * Some amount of drainage and redness is normal. Any drainage should be fairly clear and not have a foul odor. * If you feel anything is wrong or you have excessive drainage, please call us. * Your stitches and chanelle will be removed 10-14 days after your surgery. At the time of your first post-op visit. * Neck surgeries are typically closed with a suture underneath the skin. The steri-strips over the incision should be maintained until we see you in the office. Bracing: * You may be provided with a back or neck brace to encourage good posture and prevent injury. It will remind you not to do too much as you heal and will alert others to the fact that you have had a surgery. * Back braces may be removed for showers and when you are resting at home. They must be worn when you are walking around for any period of time or for travel. * For neck surgery, you will likely be provided with two cervical collars. The soft collar ([place] or foam rubber) is worn most commonly throughout the day and while sleeping. The plastic collar (provided at the hospital) is for showering/bathing. * Except while eating, collars should remain in place. More specifically, bracing is provided for a purpose and should be worn. * Please obtain your brace or collars prior to your operation and bring them to the hospital with you on the day of surgery. * You should also bring your collars to your post-op appointment with Dr. Kuo. You should always take good care of your body and practice healthy habits, especially following surgery. You should: * Follow your doctor's treatment plan * Sit and stand properly with good posture (ears over shoulders, shoulders over hips) Don't slouch * Learn to lift correctly * Exercise regularly (low-impact aerobic exercise is especially good, but check with your doctor first) * Generally, be up and walking for 5-10 minutes at a time at least 3-4 times per day from the day you get home * Increasing walking to tolerance until you can walk for 20-30 minutes at a time * Attain and maintain a healthy body weight * Eat healthy foods ( a well-balanced, low-fat diet rich in fruits and vegetables) and get enough calcium * Avoid excessive use of alcohol When to call our office - If you notice any of the following: * Increased pain not relieve by pain medicine * Fevers greater then 100 degrees F, chills or flu symptoms * Increased redness around incision * Drainage from the incision that is not clear * Any foul smelling drainage * Swelling or fluid collection beneath the skin Miscellaneous: * In the hospital, you may be given a walker or cane for support while walking. These are temporary needs and are intended to prevent injuries due to falls. You may discontinue them when you feel strong and steady enough on your feet. * Sleep in a comfortable position. We find that many patients find a lounge chair or recliner with several pillows to be beneficial in the early post-operative period. * The support stockings should be used for 7-10 days and may be discontinued when you are back to walking more and conducting usual household activities. No problem is insignificant. We are here to help you and get you well. Contact us at [phone]. Definitions: Foraminotomy: If part of the disc or a bone spur (osteophyte) is pressing on a nerve as it leaves the vertebra (through an exit called the foramen), a foraminotomy may be done. Otomy means "to make an opening." A foraminotomy is making the opening of the foramen larger, so the nerve can exit without being compressed. Laminotomy: Similar to the foraminotomy, a laminotomy makes a larger opening, this time in your bony plate protecting your spinal canal and spinal cord (the lamina). The lamina may be pressing on your nerve, so the surgeon may make more room for the nerves using a laminotomy. Laminectomy: Sometimes, a laminotomy is not sufficient. The surgeon may need to remove all or part of the lamina. This procedure is called a laminectomy. This can often be done at many levels without any harmful effects. Current Hospital Diet Patient's current hospital diet: Diabetes Type 2 Diet Discharge Diet Recommended Diet: Diabetes Type 2 Diet Fluid Restriction: None Procedures Procedures Performed: L3-S1 LAMINECTOMY, PROPHYLACTIC USE OF DURASEAL; fusion L3-5 Pending Studies Studies pending at discharge: no Medical Emergencies . Who to Call and When: Medical Emergencies: If at any time you feel your situation is an emergency, please call 911 immediately. . Non-Emergent Contact Non-Emergency issues call your: Surgeon Call Non-Emergent contact if: you have any medication questions . "Provider Documentation" section prepared by Samy Kuo. VTE Core Measure Inpt VTE Proph given/why not?: Treatment not indicated
[2016-12-25] MEDS ORDERED: NURSING VERBAL MED ORDER ONE (10:00)
[2016-12-25 12:08] LABS: ESTIMATED AVERAGE GLUCOSE 183 mg/dl; HA1C FLAG Normal (Normal)
[2016-12-25] MEDS ORDERED: INSULIN GLARGINE SOLOSTAR 100 UNITS/ML 3 ML PEN SC SCH (21:00)
[2016-12-25] MEDS: ATORVASTATIN 40 MG TAB PO SCH (21:12)
[2016-12-26] MEDS: DEXAMETHASONE INJ 10 MG in SYRINGE 0 ML IV SCH (03:10)
[2016-12-26] MEDS ORDERED: HALOPERIDOL LACTATE 5 MG/ML 1 ML VIAL IM STA (05:24)
[2016-12-26 06:12] LABS: HEMATOCRIT 32.9 % (42-52); MEAN CELL VOLUME 80.6 fL (80-100); MEAN CORPUSCULAR HEMOGLOBIN 27.2 pg (25-34); MEAN CORPUSCULAR HGB CONC 33.7 g/dl (32-36); MEAN PLATELET VOLUME 10.4 fL (7.4-10.4); PLATELET COUNT 163 K/uL (130-400); RED BLOOD COUNT 4.08 M/uL (4.7-6.1); WHITE BLOOD COUNT 11.51 K/uL (4.8-10.8)
[2016-12-26 06:52] LABS: BUN/CREATININE RATIO 18.4 (10-20); CALCIUM 9.1 mg/dl (8.5-10.1); CREATININE 0.76 mg/dl (0.60-1.40); MAGNESIUM 2.3 mg/dl (1.8-2.4); POTASSIUM 3.9 mmol/L (3.5-5.1)
[2016-12-26 08:35] VITALS: BP 133/79; PULSE 89; TEMP 37; O2SAT 94
[2016-12-26] MEDS: LISINOPRIL 20 MG TAB PO SCH (08:55)
[2016-12-26] MEDS: VENLAFAXINE HCL 37.5 MG TAB PO SCH (08:55)
[2016-12-26] MEDS: POLYETHYLENE (MIRALAX) 17 GM PACK PO SCH (08:56)
[2016-12-26] MEDS: PANTOprazole SOD 40 MG TAB PO SCH (08:56)
[2016-12-26] MEDS: GABAPENTIN 100 MG CAP PO SCH (08:56)
[2016-12-26] MEDS: INSULIN ASPART 100 UNITS/ML 3 ML PEN SC SCH (09:01)
[2016-12-26] MEDS: INSULIN GLARGINE SOLOSTAR 100 UNITS/ML 3 ML PEN SC SCH (09:03)
--- NOTE | 2016-12-26 10:06 | DISCHARGE SUMMARY ---
DATE OF DISCHARGE: 12/26/2016. SUBJECTIVE: Minimal complaints of pain. Alert, oriented, no chest pain, shortness of breath. OBJECTIVE: Vital signs stable. IMPRESSION: Status post lumbar spine reconstructive surgery. DISPOSITION: Includes instructions, precautions, education. Discharged home. Followup in 1 week. He has a walker. He has prescriptions at home. He was given instructions, precautions.
[2016-12-26 10:14] VITALS: BP 133/79; PULSE 89; TEMP 37; O2SAT 94
[2017-03-29] MEDS ORDERED: PROP40TA5 PO (15:28)
== END 2016-12-26 11:30 | disposition home health service (06) | DRG 460 ==
LOC: ENRESERVTM → ENRESERVDT → C.ACU 09:40 → OBSVTOIN 14:49 → C.3E 14:49
PROVIDERS: ADMIT Orthopaedic Surgery Orthopaedic Surgery of the Spine; ATTEND Orthopaedic Surgery Orthopaedic Surgery of the Spine
PROC: 0SG1071 Fusion of 2 or more Lumbar Vertebral Joints with Autologous Tissue Substitute, Posterior Approach, Posterior Column, Open Approach (ICD-10-PCS; principal; 2016-12-24 11:20)
PROC: 00NY0ZZ Release Lumbar Spinal Cord, Open Approach (ICD-10-PCS; principal; 2016-12-24 11:20)
DX: M48.06 Spinal stenosis, lumbar region (principal); I85.00 Esophageal varices without bleeding; E78.00 Pure hypercholesterolemia, unspecified; I10 Essential (primary) hypertension; M06.9 Rheumatoid arthritis, unspecified; K70.30 Alcoholic cirrhosis of liver without ascites; N40.0 Benign prostatic hyperplasia without lower urinary tract symptoms; F32.9 Major depressive disorder, single episode, unspecified; K21.9 Gastro-esophageal reflux disease without esophagitis; F17.210 Nicotine dependence, cigarettes, uncomplicated; F41.9 Anxiety disorder, unspecified; E83.42 Hypomagnesemia; E11.9 Type 2 diabetes mellitus without complications; Z79.4 Long term (current) use of insulin

== ENCOUNTER → 2017-01-26 | Outpatient (CLI) | payer OTHER ==
[~2017-01-26] MED LIST changes: -CEFAZOLIN 2000 MG/60 ML D5W 60 ML IV SCH; -FENTANYL CITRATE INJ 50 MCG/1 ML 2 ML VIAL ONE; -LACTATED RINGER'S 1000ML IV SCH; -NSS 1000ML IV SCH; +PROP40TA5 PO
--- NOTE | 2017-01-26 11:06 | DIAGNOSTIC IMAGING REPORT ---
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 The spleen is enlarged measuring 15 cm. There is no intra or extrahepatic biliary ductal dilatation. There is trace perihepatic fluid. No ductal filling defects are visualized. There is no pancreatic ductal dilatation. There is no significant peripancreatic edema. 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 The largest measures 4 mm. IMPRESSION: 1. No evidence of ductal dilatation. No ductal filling defects identified 2. Splenomegaly 3. No evidence of peripancreatic edema 4. 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 01/26/2017 11:04 AM Dictated Date/Time: 01/26/2017 10:59 AM
== END | disposition home or self-care (01) ==
LOC: C.MRI 10:22
PROVIDERS: ATTEND Registered Nurse
DX: R93.5 Abnormal findings on diagnostic imaging of other abdominal regions, including retroperitoneum (principal); K85.90 Acute pancreatitis without necrosis or infection, unspecified; E72.20 Disorder of urea cycle metabolism, unspecified; K70.30 Alcoholic cirrhosis of liver without ascites

== ENCOUNTER → 2017-01-29 | Outpatient (CLI) | payer OTHER ==
[2017-01-29 17:42] LABS: BASO % 0.3 %; BASO ABS # 0.02 K/uL (0-0.2); COMPLETE YES; EOS % 2.2 %; HEMATOCRIT 36.7 % (42-52); IG% 0.1 %; LYMPH % 37.1 %; LYMPH ABS # 2.73 K/uL (1.2-3.4); MEAN CELL VOLUME 82.7 fL (80-100); MEAN CORPUSCULAR HEMOGLOBIN 26.4 pg (25-34); MEAN CORPUSCULAR HGB CONC 31.9 g/dl (32-36); MEAN PLATELET VOLUME 11.2 fL (7.4-10.4); MONO % 8.6 %; NEUT % 51.7 %; PLATELET COUNT 183 K/uL (130-400); RED BLOOD COUNT 4.44 M/uL (4.7-6.1); WHITE BLOOD COUNT 7.36 K/uL (4.8-10.8)
[2017-01-29 17:50] LABS: INR 1.1 (0.9-1.1); PROTHROMBIN TIME (PATIENT) 11.8 SECONDS (9.0-12.0)
[2017-01-29 18:11] LABS: ALT/SGPT 44 U/L (12-78); AST/SGOT 40 U/L (15-37); BLOOD UREA NITROGEN 12 mg/dl (7-18); BUN/CREATININE RATIO 14.7 (10-20); CALCIUM 9.3 mg/dl (8.5-10.1); CARBON DIOXIDE 28 mmol/L (21-32); CHLORIDE 107 mmol/L (98-107); CREATININE 0.84 mg/dl (0.60-1.40); GLUCOSE 111 mg/dl (70-99); POTASSIUM 3.8 mmol/L (3.5-5.1); SODIUM 142 mmol/L (136-145)
[2017-01-29 18:13] LABS: ALKALINE PHOSPHATASE 206 U/L (45-117)
[2017-02-01 10:06] LABS: AFP TUMOR MARKER SERUM 5.2 NG/ML (<6.1)
== END | disposition home or self-care (01) ==
LOC: C.LAB1850 16:48
PROVIDERS: ATTEND Registered Nurse
DX: K70.30 Alcoholic cirrhosis of liver without ascites (principal); Z87.19 Personal history of other diseases of the digestive system

== ENCOUNTER → 2017-04-05 | Day surgery (SDC) | payer OTHER ==
[2017-03-29 15:29] VITALS: Ht 177.8 cm; Wt 83.2 kg
[~2017-04-05] VITALS: Ht 177.8 cm; Wt 83.2 kg
[~2017-04-05] MED LIST changes: +ATROPINE SULFATE 0.1 MG/ML 5ML SYR IV PRN; +EpHEDrine SULFATE INJ 50 MG/ML AMP IV PRN; -HYDR-5688 PO; +LIDOCAINE HCL 2% 2 ML VIAL (20MG/ML) ONE; -PROP20TA67 PO; +PROPOFOL IV EMULSION 10 MG/ML 20 ML VIAL IV ONE; +SODIUM CHLORIDE 0.9% 500ML 500 ML IV ONE
--- NOTE | 2017-04-05 09:18 | Endo History and Physical ---
History & Physical Date of Service: Apr 05, 2017. Chief Complaint: reflux,esophageal varices Referring Physician: Dr. Karley Branch History of Present Illness 76 yo CM who presents for EGD secondary to GERD and Esophageal varices. Past Surgical History Hx Cardiac Surgery: No Hx Internal Defibrillator: No Hx Pacemaker: No Hx Abdominal Surgery: No Hx Post-Op Nausea and Vomiting: No Hx Cancer Surgery: Yes (TOTAL PROSTATECTOMY) Hx Thoracic Surgery: Yes (LUMBAR DISCECTOMY & LAMINECTOMY, LAMINECTOMY) Hx Orthopedic: No Hx Urinary Tract Surgery: No ( ) Family History Colon CA Social History Smoking Status: Never Smoker Hx Substance Use: No Hx Alcohol Use: No (STOPPED DRINKING BEER 11/2016-USED TO DRINK 8 BEER A DAY) Allergies Coded Allergies: NO KNOWN DRUG ALLERGIES (Verified Allergy, Unknown, ., 03/29/17) Current Medications Reported Home Medications Medications Dose Route/Sig Max Daily Dose Days Date Category Propranolol Hcl 40 Mg Tab 1 Tab PO HS 30 03/29/17 Reported Neurontin (Gabapentin) 100 Mg Cap 100 Mg PO TID 12/10/16 Reported [place]-3 (Fish Oil) 1 Ea Cap 1 Cap PO QAM 12/10/16 Reported Effexor (Venlafaxine Hcl) 37.5 Mg Tab 37.5 Mg PO BID 11/18/16 Reported Prilosec (Omeprazole) 20 Mg Capcr 20 Mg PO QAM 11/18/16 Reported Glucophage (Metformin Hcl) 1,000 Mg Tab 1,000 Mg PO BID 11/18/16 Reported Lisinopril 20 Mg Tab 20 Mg PO QAM 11/18/16 Reported Etodolac 500 Mg Tab 500 Mg PO BID PRN 11/18/16 Reported Flexeril (Cyclobenzaprine Hcl) 10 Mg Tab 10 Mg PO BID PRN 11/18/16 Reported Lipitor (Atorvastatin Calcium) 80 Mg Tab 40 Mg PO QPM 11/18/16 Reported Norvasc (Amlodipine Besylate) 10 Mg Tab 10 Mg PO QAM 11/18/16 Reported Vital Signs Weight (Kilograms): 83.18 Height (Feet): 5 Height (Inches): 10 Date Time Temp Pulse Resp B/P (MAP) Pulse Ox O2 Delivery O2 Flow Rate FiO2 04/05/17 08:35 36.7 60 20 128/73 (91) 96 Room Air Physical Exam General Appearance: WD/WN, no apparent distress Respiratory/Chest: Auscultation: breath sounds normal Cardiovascular: Heart Auscultation: RRR Abdomen: Bowel Sounds: normal Inspection & Palpation: soft, non-distended, no tenderness, guarding & rebound Assessment and Plan Assessment: 76 yo CM who presents for EGD secondary to GERD and Esophageal varices. Plan: Proceed with EGD.
--- NOTE | 2017-04-05 09:32 | Discharge Instructions ---
Endoscopy Patient Instructions Date / Procedure(s) Performed Apr 05, 2017. EGD Allergy Information Coded Allergies: NO KNOWN DRUG ALLERGIES (Verified Allergy, Unknown, ., 03/29/17) Discharge Date / Findings Apr 05, 2017. Gastric polyps s/p biopsies Esophageal biopsies Medication Instructions Stopped Medication(s): stopped Metformin and Etodolac Wednesday 1) Increase Omeprazole to 20mg by mouth twice daily 1/2 hour prior to breakfast and dinner. 2) Start Carafate 1g by mouth four times daily prior to each meal and bedtime for 10 days. 3) OK to resume all medications today Reported Home Medications Medications Dose Route/Sig Max Daily Dose Days Date Category Propranolol Hcl 40 Mg Tab 1 Tab PO HS 30 03/29/17 Reported Neurontin (Gabapentin) 100 Mg Cap 100 Mg PO TID 12/10/16 Reported [place]-3 (Fish Oil) 1 Ea Cap 1 Cap PO QAM 12/10/16 Reported Effexor (Venlafaxine Hcl) 37.5 Mg Tab 37.5 Mg PO BID 11/18/16 Reported Prilosec (Omeprazole) 20 Mg Capcr 20 Mg PO QAM 11/18/16 Reported Glucophage (Metformin Hcl) 1,000 Mg Tab 1,000 Mg PO BID 11/18/16 Reported Lisinopril 20 Mg Tab 20 Mg PO QAM 11/18/16 Reported Etodolac 500 Mg Tab 500 Mg PO BID PRN 11/18/16 Reported Flexeril (Cyclobenzaprine Hcl) 10 Mg Tab 10 Mg PO BID PRN 11/18/16 Reported Lipitor (Atorvastatin Calcium) 80 Mg Tab 40 Mg PO QPM 11/18/16 Reported Norvasc (Amlodipine Besylate) 10 Mg Tab 10 Mg PO QAM 11/18/16 Reported Provider Instructions Activity Restrictions - No exercising or heavy lifting for 24 hours. - Do not drink alcohol the day of the procedure. - Do not drive a car or operate machinery until the day after the procedure. - Do not make any important decisions or sign important papers in 24 hours after the procedure. Following Day: - Return to full activity which may include returning to work/school. Diet Start your diet with liquids and light foods (jello, soup, juice, toast). Then eat your usual diet if not nauseated. Treatment For Common After Affects For mild abdominal pain, bloating, or excessive gas: - Rest - Eat lightly - Lie on right side Follow-Up Information Follow-up with Dr. Karley Branch as scheduled Anesthesia Information What You Should Know You have had a procedure that required some medicine to reduce anxiety and discomfort. This treatment is called moderate sedation. After receiving the treatment, you may be sleepy, but you will be able to breathe on your own. The effects of the treatment may last for several hours. Follow these instructions along with Activity/Diet recommendations noted above: * Do NOT do anything where dizziness or clumsiness would be dangerous. * Rest quietly at home today, then you can be up and about tomorrow. * Have a responsible person stay with you the rest of today. * You may have had an I.V. today. If so, you may take the dressing off later today. Recommendations Call your doctor if: * Trouble breathing * Continuous vomiting for more than 24 hours * Temperature above 101 degrees * Severe abdominal pain or bloating * Pain not relieved by pain medicine ordered * There is increased drainage or redness from any incision * A large amount of rectal bleeding greater than 2-3 tablespoons. (If you had a polyp/s removed or have hemorrhoids, a small amount of blood - from the rectum is to be expected.) * You have any unanswered questions or concerns. IN THE EVENT OF A SERIOUS EMERGENCY, GO TO THE NEAREST EMERGENCY ROOM Your discharge instructions were prepared by provider Ashwin Nava. Patient Instructions Signature Page Gary Huggins Patient (or Guardian) Signature/Date: I have read and understand the instructions given to me by my caregivers. Caregiver/RN/Doctor Signature/Date: The above-named patient and/or guardian has received patient instructions on this date. + Original Patient Signature Page (only) stays with chart. Please make copy for patient.
--- NOTE | 2017-04-05 09:44 | Anesthesiology Progress Note ---
Anesthesia Post Op Note Date & Time Apr 05, 2017 at 09:44 Vital Signs Pain Intensity: 0 Vital Signs Past 12 Hours Date Time Temp Pulse Resp B/P (MAP) Pulse Ox O2 Delivery O2 Flow Rate FiO2 04/05/17 09:34 62 18 103/66 (78) 95 Room Air 04/05/17 08:35 36.7 60 20 128/73 (91) 96 Room Air Notes Mental Status: alert / awake / arousable, participated in evaluation Pt Amnestic to Procedure: Yes Nausea / Vomiting: adequately controlled Pain: adequately controlled Airway Patency, RR, SpO2: stable & adequate BP & HR: stable & adequate Hydration State: stable & adequate Anesthetic Complications: no major complications apparent
--- NOTE | 2017-04-05 09:46 | GI REPORT ---
Procedure Date: 04/05/2017 8:58 AM Procedure: Upper GI endoscopy Indications: Gastro-esophageal reflux disease Medicines: Monitored Anesthesia Care Complications: No immediate complications. Estimated Blood Loss: Estimated blood loss: none. Procedure: Pre-Anesthesia Assessment: - Prior to the procedure, a History and Physical was performed, and patient medications and allergies were reviewed. The patient's tolerance of previous anesthesia was also reviewed. The risks and benefits of the procedure and the sedation options and risks were discussed with the patient. All questions were answered, and informed consent was obtained. Prior Anticoagulants: The patient has taken no previous anticoagulant or antiplatelet agents. ASA Grade Assessment: IV - A patient with severe systemic disease that is a constant threat to life. After reviewing the risks and benefits, the patient was deemed in satisfactory condition to undergo the procedure. After obtaining informed consent, the endoscope was passed under direct vision. Throughout the procedure, the patient's blood pressure, pulse, and oxygen saturations were monitored continuously. The scope was introduced through the mouth, and advanced to the second part of duodenum. The upper GI endoscopy was accomplished without difficulty. The patient tolerated the procedure well. Findings: The Z-line was irregular. Biopsies were taken with a cold forceps for histology. Multiple 2 to 12 mm pedunculated and sessile polyps were found in the stomach. Biopsies were taken with a cold forceps for histology. For hemostasis, one hemostatic clip was successfully placed (MR conditional). There was no bleeding at the end of the procedure. The examined duodenum was normal. Impression: - Z-line irregular. Biopsied. - Multiple gastric polyps. Biopsied. Clip (MR conditional) was placed. - Normal examined duodenum. Recommendation: - Resume previous diet. - Await pathology results. - Return to primary care physician as previously scheduled. - Use Prilosec (omeprazole) 20 mg PO BID for 6 weeks. - Use sucralfate tablets 1 gram PO QID for 10 days. Ashwin Nava, DO 04/05/2017 9:36:07 AM This report has been signed electronically. Note Initiated On: 04/05/2017 8:58 AM I attest to the content of the Intraoperative Record and orders documented therein, exceptions below
[2017-04-05 10:06] VITALS: BP 131/74; PULSE 56; O2SAT 93
== END | disposition home or self-care (01) ==
LOC: C.GI 08:15
PROVIDERS: ATTEND Internal Medicine
DX: K31.7 Polyp of stomach and duodenum (principal); K29.50 Unspecified chronic gastritis without bleeding; K20.9 Esophagitis, unspecified; K21.9 Gastro-esophageal reflux disease without esophagitis; Z80.0 Family history of malignant neoplasm of digestive organs; Z79.899 Other long term (current) drug therapy

== ENCOUNTER → 2017-09-17 | Outpatient (CLI) | payer OTHER ==
[~2017-09-17] MED LIST changes: -ATROPINE SULFATE 0.1 MG/ML 5ML SYR IV PRN; -EpHEDrine SULFATE INJ 50 MG/ML AMP IV PRN; -LIDOCAINE HCL 2% 2 ML VIAL (20MG/ML) ONE; -PROPOFOL IV EMULSION 10 MG/ML 20 ML VIAL IV ONE; -SODIUM CHLORIDE 0.9% 500ML 500 ML IV ONE
[2017-09-17 12:04] LABS: BASO % 0.7 %; BASO ABS # 0.03 K/uL (0-0.2); HEMATOCRIT 37.1 % (42-52); LYMPH % 42.5 %; LYMPH ABS # 1.94 K/uL (1.2-3.4); MEAN CORPUSCULAR HEMOGLOBIN 25.7 pg (25-34); MONO % 7.5 %; NEUT % 47.3 %; RED BLOOD COUNT 4.47 M/uL (4.7-6.1); WHITE BLOOD COUNT 4.56 K/uL (4.8-10.8)
[2017-09-17 12:26] LABS: PLATELET COUNT 112 K/uL (130-400)
[2017-09-17 12:28] LABS: COMPLETE YES; PLT ESTIMATE DECREASED
[2017-09-17 17:46] LABS: FERRITIN 26.8 ng/ml (8.0-388.0)
== END | disposition home or self-care (01) ==
LOC: C.LABPBG 10:37
PROVIDERS: ATTEND Family Medicine
DX: D64.9 Anemia, unspecified (principal); R74.8 Abnormal levels of other serum enzymes; R10.13 Epigastric pain

== ENCOUNTER → 2017-11-15 | Outpatient (CLI) | payer OTHER ==
[2017-11-15 12:40] LABS: BASO % 0.7 %; BASO ABS # 0.03 K/uL (0-0.2); EOS % 2.2 %; HEMATOCRIT 37.2 % (42-52); HEMOGLOBIN 11.6 g/dL (14.0-18.0); IG# 0.01 K/uL (0.00-0.02); LYMPH % 41.4 %; MEAN CELL VOLUME 80.5 fL (80-100); MEAN CORPUSCULAR HEMOGLOBIN 25.1 pg (25-34); MEAN CORPUSCULAR HGB CONC 31.2 g/dl (32-36); MEAN PLATELET VOLUME 10.8 fL (7.4-10.4); MONO % 6.3 %; MONO ABS # 0.29 K/uL (0.11-0.59); NEUT % 49.2 %; NEUT ABS # 2.26 K/uL (1.4-6.5); PLATELET COUNT 133 K/uL (130-400); RED CELL DISTRIBUTION WIDTH CV 16.7 % (11.5-14.5); WHITE BLOOD COUNT 4.59 K/uL (4.8-10.8)
[2017-11-15 13:38] LABS: ALBUMIN 3.5 gm/dl (3.4-5.0); ALT/SGPT 57 U/L (12-78); BLOOD UREA NITROGEN 10 mg/dl (7-18); CALCIUM 8.9 mg/dl (8.5-10.1); CARBON DIOXIDE 30 mmol/L (21-32); CREATININE 0.79 mg/dl (0.60-1.40); GLUCOSE 170 mg/dl (70-99); POTASSIUM 4.2 mmol/L (3.5-5.1); SODIUM 137 mmol/L (136-145)
[2017-11-15 13:40] LABS: ALKALINE PHOSPHATASE 181 U/L (45-117); AST/SGOT 54 U/L (15-37); TOTAL PROTEIN 7.7 gm/dl (6.4-8.2)
== END | disposition home or self-care (01) ==
LOC: C.LABPBG 09:30
PROVIDERS: ATTEND Family Medicine
DX: D64.9 Anemia, unspecified (principal); D69.6 Thrombocytopenia, unspecified

== ENCOUNTER → 2018-04-28 | Outpatient (CLI) | payer OTHER ==
[~2018-04-28] MED LIST changes: -AMLO-114 PO; +AMLO10TA3 PO; +LISI-726 PO; -LSN20 PO
[2018-04-28 14:25] LABS: BLOOD UREA NITROGEN 6 mg/dl (7-18)
== END | disposition home or self-care (01) ==
LOC: C.LABPBG 08:36
PROVIDERS: ATTEND Family Medicine
DX: E11.9 Type 2 diabetes mellitus without complications (principal)

== ENCOUNTER → 2018-04-29 | Outpatient (CLI) | payer OTHER ==
[~2018-04-29] MED LIST changes: +OPTIRAY 320 IV PRN
--- NOTE | 2018-04-29 13:31 | DIAGNOSTIC IMAGING REPORT ---
ABD/PELVIS IV CONTRAST ONLY CT DOSE: 724.83 mGycm HISTORY: R74.8 Elevated liver sazegsaP86.0 [id number] Weight loss, unint TECHNIQUE: Multiaxial CT images of the abdomen and pelvis were performed following the use of intravenous contrast. A dose lowering technique was utilized adhering to the principles of ALARA. COMPARISON STUDY: None. FINDINGS: Lung bases are clear. Cortical scarring outer margins of the liver consistent with fatty infiltration change as well as hepatic cirrhosis. No evidence of bony ductal distention. Pancreas is of this time is unremarkable. Several small reactive nodes of the celiac axis and upper abdominal region improved in the prior study. Several small gastroesophageal junction varices. Condition negative for hydronephrosis. Spleen is uniform. All major vascular structures are patent. The abdominal bowel pattern is nonobstructive. Normal appendix. Bladder is midline. Trace amount of free fluid within the pelvic cul-de-sac. Prior prostatectomy. IMPRESSION: 1. Findings of a developing hepatic cirrhosis. 2. Fatty infiltration of liver. 3. Trace free fluid within the pelvic cul-de-sac most likely reactive. 4. Minimal scatteredesophageal varices. The above report was generated using voice recognition software. It may contain grammatical, syntax or spelling errors. Electronically signed by: Vel Quach M.D. 04/29/2018 1:30 PM Dictated Date/Time: 04/29/2018 1:22 PM
== END | disposition home or self-care (01) ==
LOC: C.CTS 11:11
PROVIDERS: ATTEND Family Medicine
DX: R63.4 Abnormal weight loss (principal); R11.0 Nausea; R10.9 Unspecified abdominal pain; R74.8 Abnormal levels of other serum enzymes; K76.0 Fatty (change of) liver, not elsewhere classified

== ENCOUNTER 2019-06-13 10:10 | Inpatient (IN) ==
[2019-06-13] MEDS ORDERED: ONDANSETRON INJ 2 MG/ML 2 ML VIAL IV STA (10:31)
[2019-06-13 10:50] LABS: Hematocrit (blood only) 34.5 % (42-52); Hemoglobin 11.4 g/dL (14.0-18.0); Immature Granulocytes # (auto) 0.01 K/uL (0.00-0.02); Immature Granulocytes % (auto) 0.1 %; Lymphocytes # (auto) 1.96 K/uL (1.2-3.4); Lymphocytes % (auto) 24.9 %; Mean Corpuscular Hemoglobin 28.9 pg (25-34); Mean Corpuscular Volume 87.3 fL (80-100); Monocytes # (auto) 1.01 K/uL (0.11-0.59); Monocytes % (auto) 12.8 %; Neutrophils # (auto) 4.88 K/uL (1.4-6.5); Neutrophils % (auto) 62.2 %; Platelet Count 185 K/uL (130-400); RDW Coefficient of Variation 16.2 % (11.5-14.5); RDW Standard Deviation 52.1 fL (36.4-46.3); Red Blood Count 3.95 M/uL (4.7-6.1); White Blood Count 7.86 K/uL (4.8-10.8)
[2019-06-13] MEDS: HYDROmorphone INJ 0.5 MG/0.5 ML SYR IV PRN ×3 (10:54→13:34)
--- NOTE | 2019-06-13 10:55 | XRay Report ---
SINGLE VIEW CHEST CLINICAL HISTORY: Atypical chest pain. FINDINGS: An AP, portable, upright chest radiograph is compared to study dated 11/21/2016. The examina tion is degraded by portable technique and apical lordotic positioning. The heart is mildly enlarge d noting atherosclerotic calcification of the thoracic aorta. The pulmonary vasculature is noncongest ed. Chronic interstitial thickening and elevation of the right hemidiaphragm are similar to previous. No airspace consolidation or large pleural effusion is identified. No pneumothorax is seen. The skel etal structures are osteopenic. The bony thorax is grossly intact. IMPRESSION: Mild cardiac enlargement with no active disease in the chest. Electronically signed by: Tony Morocho M.D. 06/13/2019 10:54 AM
[2019-06-13 11:11] LABS: Alanine Aminotransferase 96 U/L (12-78); Albumin Level 2.9 gm/dl (3.4-5.0); Aspartate Aminotransferase 155 U/L (15-37); BUN Creatinine Ratio 17.2 (10-20); Blood Urea Nitrogen 10 mg/dl (7-18); Calcium 8.8 mg/dl (8.5-10.1); Carbon Dioxide 25 mmol/L (21-32); Chloride 102 mmol/L (98-107); Creatinine Clr Calc Pharmacy 108.1 ml/min; Est GFR (African American) 113.2; Est GFR (Non-African American) 97.7; Glucose 147 mg/dl (70-99); Potassium 4.2 mmol/L (3.5-5.1); Sodium 137 mmol/L (136-145)
[2019-06-13 11:15] LABS: Albumin Globulin Ratio 0.6 (0.9-2); Alkaline Phosphatase 502 U/L (45-117); Bilirubin,Total 0.9 mg/dl (0.2-1); Creatine Kinase 46 U/L (39-308); Creatine Kinase MB < 1.0 ng/ml (0.5-3.6); Globulin 4.9 gm/dl (2.5-4.0); Lipase 3568 U/L (73-393); Total Protein 7.8 gm/dl (6.4-8.2); Troponin I < 0.015 ng/ml (0-0.045)
[2019-06-13 11:17] LABS: iSTAT Creatinine 0.5 mg/dl (0.6-1.3); iSTAT Hemoglobin 12.2 g/dl (14.0-18.0); iSTAT Ionized Calcium 1.07 mmol/l (1.12-1.32); iSTAT Potassium 7.1 mEq/L (3.3-5.0)
[2019-06-13] MEDS ORDERED: IOVERSOL 100ml IV PRN (11:35)
--- NOTE | 2019-06-13 11:57 | CT Scan Report ---
CT abd pelvis IV con only CLINICAL HISTORY: Epigastric pain COMPARISON STUDY: 04/29/2018 TECHNIQUE: The patient was scanned in a dynamic helical fashion during intravenous administration of 93 cc Optiray 320. A dose lowering technique was utilized adhering to the principles of ALARA. CT DOSE: 652.27 mGycm FINDINGS: Lower chest: There are minimal basilar atelectatic changes. Liver: The liver has a cirrhotic morphology. The liver is mildly enlarged measuring 20.6 cm in length . There is no ductal dilatation. The portal vein appears patent. There is a nonspecific 6 mm hypodens ity within the right hepatic lobe. Gallbladder: No gallstones are visualized. There is minimal pericholecystic fluid, likely secondary t o hepatocellular disease. Spleen: The spleen is enlarged measuring 16.3 cm. Pancreas: There is mild peripancreatic edema. This likely reflects pancreatitis. There is an area of fullness and diminished enhancement in the pancreatic tail measuring approximately 3 cm. This likely represents focal pancreatitis. This finding however warrants a 3 month follow-up CT scan to exclude a n underlying mass. Adrenal glands: Unremarkable. Kidneys: There is symmetric renal cortical enhancement. The kidneys are normal in size without hydron ephrosis. Bowel: There are no transition zones to indicate bowel obstruction. There is no evidence of acute cecily endicitis. There is no evidence of acute diverticulitis. Peritoneum: There is low volume ascites, most pronounced in the perihepatic region. There is no free intraperitoneal air. Vasculature: There is mild ectasia of the infrarenal abdominal aorta which measures 25 mm in maximal diameter. There are varices at the level of the esophagogastric junction Adenopathy: There are prominent periportal lymph nodes, statistically reactive. Pelvic viscera: The patient appears be status post a prior prostatectomy Skeletal structures: Postsurgical changes are present within the lumbar spine IMPRESSION: 1. No evidence of bowel obstruction. No evidence of free air 2. Cirrhotic morphology of the liver with hepatosplenomegaly, low volume ascites 3.Too Small to characterize 6 mm hypodensity within the right hepatic lobe 4. Mildly enlarged periportal lymph nodes, likely reactive 5. The appendix is at the upper limits of normal in size without evidence of acute appendicitis 6. No evidence of acute diverticulitis 7. Varices at the level of the esophagogastric junction 8. Peripancreatic edema. Subtle fullness and diminished enhancement of the pancreatic tail, likely se condary to focal pancreatitis. This finding warrants a 3 month follow-up study, to exclude an underly ing mass.. Electronically signed by: Abdiaziz Nolen M.D. 06/13/2019 11:56 AM
[2019-06-13] MEDS ORDERED: cefOXitin 2,000 MG/60 ML BAG IV STA (12:03)
--- NOTE | 2019-06-13 12:37 | Ultrasound Report ---
BILIARY ULTRASOUND CLINICAL HISTORY: Right upper quadrant abdominal pain COMPARISON STUDY: CT scan dated 06/13/2019 FINDINGS: The head and body of pancreas appear normal. The tail was poorly visualized. The liver has a coarsened echotexture, consistent with cirrhosis. The portal veins were patent but de monstrated diminished flow. The gallbladder appears sonographically normal. There is no ductal dilatation. There is no right-sided hydronephrosis. There is perihepatic ascites. IMPRESSION: 1. Coarsened hepatic echotexture consistent with cirrhosis 2. Perihepatic ascites 3. Ultrasonographically normal gallbladder 4. Patent portal veins which demonstrate diminished flow Electronically signed by: Abdiaziz Nolen M.D. 06/13/2019 12:35 PM
[2019-06-13 12:57] LABS: Appearance Urine Clear (Clear); Bilirubin Urine Negative (Negative); Blood Urine Negative (Negative); Color Urine Yellow; Glucose Urine UA Negative (Negative); Ketones Urine Negative (Negative); Leukocyte Esterase Urine Negative (Negative); Nitrite Urine Negative (Negative); Protein Urine Negative (Negative); Specific Gravity Urine 1.022 (1.000-1.030); Urobilinogen Urine Negative (Negative); pH Urine 8.5 (4.5-7.5)
[2019-06-13] MEDS ORDERED: PHARMACY GLYCEMIC MGMT CONSULT STA (14:48)
[2019-06-13] MEDS ORDERED: MAGNESIUM HYDROXIDE SUSP 30 ML UDC PO PRN (14:48)
[2019-06-13] MEDS ORDERED: ALUMINUM/MAGNESIUM SUSP 30 ML UDC PO PRN (14:48)
[2019-06-13] MEDS ORDERED: CARBOHYDRATES FOR HYPOGLYCEMIA PO PRN (14:48)
[2019-06-13] MEDS ORDERED: GLUCAGON FOR INJ 1 MG VIAL SQ PRN (14:48)
[2019-06-13] MEDS ORDERED: GLUCOSE 10 TABS/TUBE PO PRN (14:48)
[2019-06-13] MEDS ORDERED: ZOLPIDEM TARTRATE 5 MG TAB PO PRN (14:48)
[2019-06-13] MEDS ORDERED: GLUCOSE 40% GEL 15 GM TUBE PO PRN (14:48)
[2019-06-13] MEDS ORDERED: POLYETHYLENE (MIRALAX) 17 GM PACK PO PRN (14:48)
[2019-06-13] MEDS ORDERED: DEXTROSE 50% 50 ML SYRINGE IV PRN (14:48)
[2019-06-13] MEDS ORDERED: ACETAMINOPHEN 325 MG TAB PO PRN (14:48)
[2019-06-13] MEDS ORDERED: CYCLOBENZAPRINE HCL 10 MG TAB PO PRN (14:48)
[2019-06-13] MEDS ORDERED: SODIUM CHLORIDE 0.9% 1000ML 1,000 ML IV SCH (14:48)
[2019-06-13] MEDS ORDERED: DC ALL PREVIOUSLY ORDERED DIABETES MEDS ONE (14:48)
[2019-06-13] MEDS ORDERED: predniSONE 20 MG TAB PO SCH ×2 (14:48→15:30)
[2019-06-13 14:49] LABS: BUN Creatinine Ratio 12.6 (10-20); Creatinine Clr Calc Pharmacy 82.1 ml/min; Est GFR (African American) 101.1; Est GFR (Non-African American) 87.2; Potassium 3.9 mmol/L (3.5-5.1)
[2019-06-13] MEDS ORDERED: ENOXAPARIN INJ 40 MG/0.4 ML SYR SQ SCH (15:15)
[2019-06-13] MEDS ORDERED: PHARMACY GLYCEMIC MGMT CONSULT PRN (15:16)
--- NOTE | 2019-06-13 15:21 | Gastrointestinal Consultation ---
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 He is afebrile w/o leukocytosis w/ stable HGB w/o BUN elevation. He has mildly elevated transaminases w/ normal bilirubin and elevated lipase at 4000. CT obtained w/ peripancreatic edema and subtle fullness of the pancreatic tail, likely secondary to focal pancreatitis. DDX discussed: ETOH induced vs medication induced vs multifactorial pancreatitis vs other Pancreatitis - NPO - LR 200 mL/hr - Anti-emetics PRN - Analgesia PRN - Ensure adequate hydration - Assess vital signs, check for drop in HGB, daily BMP, electrolytes - Strict ETOH cessation - Trend LFTs, consider biliary imaging for persistent elevation Dark stools x 1 week without anemia - Trend HGB - Monitor and document all GI output - PO PPI 40 mg daily - Call with any acute changes, questions or concerns Cirrhosis - MELD labs tomorrow - Watch for S/S fluid overload - Strict ETOH cessation - Should continue to follow with [facility] for cirrhosis management - Trend LFTs - Less than 2G tylenol if using - No NSAIDs - Low NA diet, less than 2G [facility] to sign off. [facility] to resume care 06/14/19. Thank you for allowing us to participate in the care of this patient. Please call with any acute changes, questions or concerns. Please see addendum below with additional recommendation from my supervising physician. Present on Admission?: Yes Supervising Physician Co-Signing Physician Notes Attending attestation I have seen, examined this patient, and agree with the findings and above by our mid-level provider IRISH Rose, with the following additions Acute uncomplicated pancreatitis likely related to alcohol, but also prednisone may have been contributory. Follows with Dr. Nava for his chronic liver disease, and has had pancreatitis in the past. Will need IV fluid resuscitation as above, IV pain control, and continued care while inpatient. Monitor for volume overload given his cirrhosis. History of Present Illness Reason for Consultation: abdominal pain, elevated lipase Requesting Physician: Rigoberto Attending Physician: Meredith Franklin MD History of Present Illness 78 year old male with history of T2DM, HTN, prostate CA, GERD, cirrhosis, chronic back pain and others below who presented through the ED w/ severe upper abdominal pain - GI asked to evaluate for elevated lipase, pancreatitis on CT. This is cross coverage [place] [facility] [place] who will resume coverage tomorrow. Pt notes feeling run down, fatigue w/ decreased appetite yesterday. Woke up around 0200 w/ severe upper abdominal pain w/ radiation to his back. This was associated w/ mild nausea, no vomiting. Denies GERD symptoms. He endorses a change in his stools prior to this onset w/ dark stools x 1 week. No change in bowel frequency but notes that the stools have been near black. No BRB. Denies any coffee ground emesis or hematemesis. Suggests a gradual weight loss of 40lbs last year which prompted EGD/Colonoscopy last year. No fever, chills, CP, SOB. ETOH: 2/3 drinks daily x years but suggests he drank more on Wednesday about 4/5 beers NSAIDs: none AC: none New meds: Keflex, prednisone ABD US 2019: Coarsened hepatic echotexture consistent with cirrhosisPerihepatic ascites Ultrasonographically normal gallbladder Patent portal veins which demonstrate diminished flow CT 2019: No evidence of bowel obstruction. No evidence of free airCirrhotic morphology of the liver with hepatosplenomegaly, low volume ascitesToo Small to characterize 6 mm hypodensity within the right hepatic lobeMildly enlarged periportal lymph nodes, likely reactive The appendix is at the upper limits of normal in size without evidence of acute appendicitisNo evidence of acute diverticulitis Varices at the level of the esophagogastric junction Peripancreatic edema. Subtle fullness and diminished enhancement of the pancreatic tail, likely secondary to focal pancreatitis. This finding warrants a 3 month follow-up study, to exclude an underlying mass.. ABD US 2019: Cirrhotic liver. No hepatic masses.Trace perihepatic ascites. Normal gallbladder. No gallstones. Colonoscopy 2018: Non-bleeding internal hemorrhoids.No specimens collected. EGD 2018: Loraine-colored mucosa suspicious for short-segment Phillips's esophagus. Multiple gastric polyps. Biopsied. Gastritis.Normal examined duodenum. EGD 2017: Z-line irregular. Biopsied.-Multiple gastric polyps. Biopsied. Clip was placed.-Normal examined duodenum Allergies Allergy/AdvReac Type Severity Reaction Status Date / Time No Known Drug Allergies Allergy Unknown . Verified 06/13/19 10:58 Home Medications Home Medications Medication Instructions Recorded Confirmed Type hydrocodone-acetaminophen 1 tab PO BID 06/07/18 06/13/19 History amlodipine 10 mg tablet 10 mg PO QAM #30 tab 03/08/19 06/13/19 Rx cyclobenzaprine 10 mg tablet 10 mg PO BID PRN #60 tab 03/08/19 06/13/19 Rx propranolol 40 mg tablet 40 mg PO BID 30 Days #60 tab 03/08/19 06/13/19 Rx venlafaxine ER 150 mg 150 mg PO QAM #30 tab 03/08/19 06/13/19 Rx capsule,extended release 24 hr cephalexin 500 mg capsule 500 mg PO TID 10 Days #30 cap 06/09/19 06/13/19 Rx gabapentin 400 mg capsule 400 mg PO QPM cap 06/09/19 06/13/19 History lisinopril 20 mg tablet 10 mg PO QAM tab 06/09/19 06/13/19 History atorvastatin 80 mg PO QPM 06/13/19 06/13/19 History metformin 1,000 mg PO BID 06/13/19 06/13/19 History omega-3 fatty acids [Fish Oil 1,000 mg PO QAM 06/13/19 06/13/19 History Concentrate] pantoprazole 40 mg PO BIDM 06/13/19 06/13/19 History prednisone 1 mg PO UD 06/13/19 06/13/19 History Patient History Medical History Cardiac murmur Chronic back pain CHRONIC NECK PAIN, NORMAL ROM Depression Diabetes mellitus, type 2 GERD (gastroesophageal reflux disease) History of prostate cancer s/p prostatectomy in 1998, no chemo/no radiation Hypertension Lumbar stenosis Pancreatitis 12/2016 Surgical History History of colonoscopy History of cystoscopy D/T INCONTINENCE History of esophagogastroduodenoscopy (EGD) History of laminectomy X2 History of prostatectomy History of tooth extraction Family History Sister Family history of diabetes mellitus Mother Colorectal cancer Brother Prostate cancer Father No problems noted. Son Thyroid disease Social History Preferred Language: Spanish Communication Ability: Effective Beliefs That Will Affect Care: Yarsanism Yarsanism Beliefs: CONFUCIANISM Current Living Situation: Spouse current occupational status: retired Other Information That Helps Us Care for You: No Feels Safe at Home: Yes Safety Concerns: Feels Safe At This Time Smoking Status: Never smoker Tobacco Type: smokeless tobacco ; Age Quit Using Tobacco: 42 ; Second Hand Exposure: No ; Hx Alcohol Use: Yes Alcohol type: wine Alcohol Intake Frequency: Daily Hx Substance Use: No caffeine: No Dental Care, Regularly: Yes Physical Activity Frequency Comment: limited by physical condition Seatbelt Use: always Review of Systems Constitutional: + fatigue, + anorexia and + weight loss; no fever and no chills Respiratory: no cough, no dyspnea and no wheezing Cardiovascular: no chest pain, no radiating jaw, neck or arm pain and no dyspnea on exertion Gastrointestinal: + abdominal pain, + early satiety, + nausea and + change in stools; no belching, no heartburn, no vomiting, no coffee ground emesis, no hematemesis, no pain with swallowing, no cramping, no constipation, no fecal incontinence, no blood in stools and no melena Physical Exam Constitutional: well developed and well nourished; no acute distress Neck: trachea midline Respiratory: normal respiratory effort Auscultation: + diminished lung sounds (bilateral bases) Cardiovascular: Rate/Rhythm: regular rate and regular rhythm Heart Sounds: + murmur (systolic) Gastrointestinal (Abdomen): Inspection/Auscultation: abdomen normal to inspection and normal bowel sounds; abdomen not distended Percussion/Palpation: + abdomen tender and abdomen soft; no guarding and abdomen not rigid Skin: no rashes, warm and dry Results & Data Vital Signs (Past 12 Hours) Vital Signs Temp Pulse Pulse Resp BP BP Pulse Ox 06/13/19 14:48 36.3 C L 71 16 152/76 H 97 06/13/19 14:20 82 20 141/78 H 95 06/13/19 13:36 77 19 161/90 H 96 06/13/19 12:46 77 20 165/95 H 95 06/13/19 10:36 96 06/13/19 10:29 36.6 C 69 19 157/84 H 96 Laboratory Results 06/13/19 06/13/19 06/13/19 Range/Units 14:21 12:40 11:04 WBC (4.8-10.8) K/uL RBC (4.7-6.1) M/uL Hgb (14.0-18.0) g/dL POC Hgb 12.2 L (14.0-18.0) g/dl Hct (42-52) % POC Hct 36 L (42-52) % MCV (80-100) fL MCH (25-34) pg MCHC (32-36) g/dL RDW Std Deviation (36.4-46.3) fL RDW Coeff of Elliot (11.5-14.5) % Plt Count (130-400) K/uL MPV (7.4-10.4) fL Immature Gran % (Auto) % Neut % (Auto) % Lymph % (Auto) % [place] % (Auto) % Eos % (Auto) % Baso % (Auto) % Immature Gran # (Auto) (0.00-0.02) K/uL Neut # (Auto) (1.4-6.5) K/uL Lymph # (Auto) (1.2-3.4) K/uL [place] # (Auto) (0.11-0.59) K/uL Eos # (Auto) (0-0.5) K/uL Baso # (Auto) (0-0.2) K/uL POC Sodium 134 L (135-144) mEq/L Sodium 135 L (136-145) mmol/L POC Potassium 7.1 H* (3.3-5.0) mEq/L Potassium 3.9 (3.5-5.1) mmol/L POC Chloride 99 L (101-112) mEq/L Chloride 100 (98-107) mmol/L Carbon Dioxide 28 (21-32) mmol/L POC Total CO2 30 (24-31) mEq/l Anion Gap 8.0 (3-11) POC Anion Gap 13.0 L (16-25) mmol/L POC BUN 13 (7-18) mg/dl BUN 10 (7-18) mg/dl Creatinine 0.79 (0.6-1.4) mg/dl POC Creatinine 0.5 L (0.6-1.3) mg/dl Est Cr Clr Drug Dosing 82.1 ml/min Est GFR ( Amer) 101.1 Est GFR (Non-Af Amer) 87.2 BUN/Creatinine Ratio 12.6 (10-20) Glucose 184 H (70-99) mg/dl POC Glucose (other) 156 H (70-99) mg/dl Calcium 9.0 (8.5-10.1) mg/dl POC Ioniz Calcium Murray 1.07 L (1.12-1.32) mmol/l Total Bilirubin (0.2-1) mg/dl AST (15-37) U/L ALT (12-78) U/L Alkaline Phosphatase (45-117) U/L Total Creatine Kinase (39-308) U/L CK-MB (CK-2) (0.5-3.6) ng/ml CK/CKMB % Calc Troponin I (0-0.045) ng/ml Total Protein (6.4-8.2) gm/dl Albumin (3.4-5.0) gm/dl Globulin (2.5-4.0) gm/dl Albumin/Globulin Ratio (0.9-2) Lipase (73-393) U/L Specimen Hemolysis Urine Color Yellow Urine Appearance Clear (Clear) Urine pH 8.5 H (4.5-7.5) Ur Specific Myra 1.022 (1.000-1.030) Urine Protein Negative (Negative) Urine Glucose (UA) Negative (Negative) Urine Ketones Negative (Negative) Urine Blood Negative (Negative) Urine Nitrite Negative (Negative) Urine Bilirubin Negative (Negative) Urine Urobilinogen Negative (Negative) Ur Leukocyte Esterase Negative (Negative) 06/13/19 06/13/19 Range/Units 10:25 10:25 WBC 7.86 (4.8-10.8) K/uL RBC 3.95 L (4.7-6.1) M/uL Hgb 11.4 L (14.0-18.0) g/dL POC Hgb (14.0-18.0) g/dl Hct 34.5 L (42-52) % POC Hct (42-52) % MCV 87.3 (80-100) fL MCH 28.9 (25-34) pg MCHC 33.0 (32-36) g/dL RDW Std Deviation 52.1 H (36.4-46.3) fL RDW Coeff of Elliot 16.2 H (11.5-14.5) % Plt Count 185 (130-400) K/uL MPV 10.0 (7.4-10.4) fL Immature Gran % (Auto) 0.1 % Neut % (Auto) 62.2 % Lymph % (Auto) 24.9 % [place] % (Auto) 12.8 % Eos % (Auto) 0.0 % Baso % (Auto) 0.0 % Immature Gran # (Auto) 0.01 (0.00-0.02) K/uL Neut # (Auto) 4.88 (1.4-6.5) K/uL Lymph # (Auto) 1.96 (1.2-3.4) K/uL [place] # (Auto) 1.01 H (0.11-0.59) K/uL Eos # (Auto) 0.00 (0-0.5) K/uL Baso # (Auto) 0.00 (0-0.2) K/uL POC Sodium (135-144) mEq/L Sodium 137 (136-145) mmol/L POC Potassium (3.3-5.0) mEq/L Potassium 4.2 (3.5-5.1) mmol/L POC Chloride (101-112) mEq/L Chloride 102 (98-107) mmol/L Carbon Dioxide 25 (21-32) mmol/L POC Total CO2 (24-31) mEq/l Anion Gap 10.0 (3-11) POC Anion Gap (16-25) mmol/L POC BUN (7-18) mg/dl BUN 10 (7-18) mg/dl Creatinine 0.60 (0.6-1.4) mg/dl POC Creatinine (0.6-1.3) mg/dl Est Cr Clr Drug Dosing 108.1 ml/min Est GFR ( Amer) 113.2 Est GFR (Non-Af Amer) 97.7 BUN/Creatinine Ratio 17.2 (10-20) Glucose 147 H (70-99) mg/dl POC Glucose (other) (70-99) mg/dl Calcium 8.8 (8.5-10.1) mg/dl POC Ioniz Calcium Murray (1.12-1.32) mmol/l Total Bilirubin 0.9 (0.2-1) mg/dl AST 155 H (15-37) U/L ALT 96 H (12-78) U/L Alkaline Phosphatase 502 H (45-117) U/L Total Creatine Kinase 46 (39-308) U/L CK-MB (CK-2) < 1.0 (0.5-3.6) ng/ml CK/CKMB % Calc TNP Troponin I < 0.015 (0-0.045) ng/ml Total Protein 7.8 (6.4-8.2) gm/dl Albumin 2.9 L (3.4-5.0) gm/dl Globulin 4.9 H (2.5-4.0) gm/dl Albumin/Globulin Ratio 0.6 L (0.9-2) Lipase 3568 H (73-393) U/L Specimen Hemolysis Urine Color Urine Appearance (Clear) Urine pH (4.5-7.5) Ur Specific Myra (1.000-1.030) Urine Protein (Negative) Urine Glucose (UA) (Negative) Urine Ketones (Negative) Urine Blood (Negative) Urine Nitrite (Negative) Urine Bilirubin (Negative) Urine Urobilinogen (Negative) Ur Leukocyte Esterase (Negative)
[2019-06-13] MEDS ORDERED: OXYCODONE HCL 15 MG TABCR (OXYCONTIN) PO STA (15:40)
[2019-06-13] MEDS ORDERED: OXYCODONE HCL IR 5 MG TAB (IMMEDIATE RELEASE) PO PRN (15:45)
[2019-06-13] MEDS: AMLODIPINE BESYLATE 5 MG TAB PO SCH (15:56)
--- NOTE | 2019-06-13 16:40 | Emergency Department Note ---
Entered by Verna Molina acting as a scribe for History of Present Illness General Chief complaint: Cardiac Assessment Time Seen by Provider: 06/13/19 10:17 Source: patient History of Present Illness Onset (ago): hour(s) 8 Location: abdomen (upper) Pain Consistency: + constant Maximum Pain Intensity: 10 Quality: + other (upper abdominal pain ) Associated symptoms: + denies other symptoms The patient is a 78 year old male who presents to the Emergency Room with complaints of constant upper abdominal pain that began approximately 8 hours ago. The patient denies any other symptoms. The patient notes he still has his gall bladder. He notes he wants something for the abdominal pain. Home Medications Home Medications Medication Instructions Recorded Confirmed Type hydrocodone-acetaminophen 1 tab PO BID 06/07/18 06/13/19 History amlodipine 10 mg tablet 10 mg PO QAM #30 tab 03/08/19 06/13/19 Rx cyclobenzaprine 10 mg tablet 10 mg PO BID PRN #60 tab 03/08/19 06/13/19 Rx propranolol 40 mg tablet 40 mg PO BID 30 Days #60 tab 03/08/19 06/13/19 Rx venlafaxine ER 150 mg 150 mg PO QAM #30 tab 03/08/19 06/13/19 Rx capsule,extended release 24 hr cephalexin 500 mg capsule 500 mg PO TID 10 Days #30 cap 06/09/19 06/13/19 Rx gabapentin 400 mg capsule 400 mg PO QPM cap 06/09/19 06/13/19 History lisinopril 20 mg tablet 10 mg PO QAM tab 06/09/19 06/13/19 History atorvastatin 80 mg PO QPM 06/13/19 06/13/19 History metformin 1,000 mg PO BID 06/13/19 06/13/19 History omega-3 fatty acids [Fish Oil 1,000 mg PO QAM 06/13/19 06/13/19 History Concentrate] pantoprazole 40 mg PO BIDM 06/13/19 06/13/19 History prednisone 1 mg PO UD 06/13/19 06/13/19 History Allergies Allergy/AdvReac Type Severity Reaction Status Date / Time No Known Drug Allergies Allergy Unknown . Verified 06/13/19 10:58 Past Med/Surg History Medical History Cardiac murmur Chronic back pain CHRONIC NECK PAIN, NORMAL ROM Depression Diabetes mellitus, type 2 GERD (gastroesophageal reflux disease) History of prostate cancer s/p prostatectomy in 1998, no chemo/no radiation Hypertension Lumbar stenosis Pancreatitis 12/2016 Surgical History History of colonoscopy History of cystoscopy D/T INCONTINENCE History of esophagogastroduodenoscopy (EGD) History of laminectomy X2 History of prostatectomy History of tooth extraction Family History Sister Family history of diabetes mellitus Mother Colorectal cancer Brother Prostate cancer Father No problems noted. Son Thyroid disease Social History Preferred Language: Bolivian Communication Ability: Effective Beliefs That Will Affect Care: Anabaptism Anabaptism Beliefs: BAHAI Current Living Situation: Spouse current occupational status: retired Other Information That Helps Us Care for You: No Feels Safe at Home: Yes Safety Concerns: Feels Safe At This Time Smoking Status: Never smoker Tobacco Type: smokeless tobacco ; Age Quit Using Tobacco: 42 ; Second Hand Exposure: No ; Hx Alcohol Use: Yes Alcohol type: wine Alcohol Intake Frequency: Daily Hx Substance Use: No caffeine: No Dental Care, Regularly: Yes Physical Activity Frequency Comment: limited by physical condition Seatbelt Use: always Review of Systems See HPI for pertinent positives & negatives. and A total of 10 systems reviewed and were otherwise negative Physical Exam Vital Signs Vital Signs - 24 hr 06/13/19 10:29 06/13/19 10:35 06/13/19 10:36 Temperature 36.6 C Temperature Source Oral Sepsis Recent Fever Within 48 Hours No Sepsis New/Unexplained Change in Mental Status No Sepsis Action Taken by Nursing No Action Required Pulse Rate 69 Pulse Rate [Left Finger] Pulse Rhythm [Left Finger] Respiratory Rate 19 Respiratory Effort / Characteristics Non-Labored Spontaneous Respiratory Depth Respiratory Pattern Blood Pressure 157/84 H Blood Pressure [Left Arm] Blood Pressure Mean 108 Blood Pressure Mean [Left Arm] Pulse Oximetry 96 96 Oxygen Delivery Method Room Air Room Air Room Air 06/13/19 12:46 06/13/19 13:36 06/13/19 13:39 Temperature Temperature Source Sepsis Recent Fever Within 48 Hours Sepsis New/Unexplained Change in Mental Status Sepsis Action Taken by Nursing Pulse Rate Pulse Rate [Left Finger] 77 77 Pulse Rhythm [Left Finger] Regular Respiratory Rate 20 19 Respiratory Effort / Characteristics Non-Labored Non-Labored Non-Labored Spontaneous Respiratory Depth Normal Normal Normal Respiratory Pattern Regular Regular Regular Blood Pressure Blood Pressure [Left Arm] 165/95 H 161/90 H Blood Pressure Mean Blood Pressure Mean [Left Arm] 118 113 Pulse Oximetry 95 96 Oxygen Delivery Method Room Air Room Air Room Air GENERAL: Awake, alert, well-appearing, in no acute distress HENT: Normocephalic, atraumatic. Oropharynx unremarkable. EYES: Normal conjunctiva. Sclera non-icteric. NECK: Supple. No nuchal rigidity. FROM. No JVD. RESPIRATORY: Clear to auscultation. CARDIAC: Regular rate, normal rhythm. Extremities warm and well perfused. Pulses equal. ABDOMEN: Soft, tender in right upper quadrant. No tenderness to palpation. No r ebound or guarding. No masses. RECTAL: Deferred. MUSCULOSKELETAL: Chest examination reveals no tenderness. The back is symmetrical on inspection without obvious abnormality. There is no CVA tenderness to palpation. No joint edema. LOWER EXTREMITIES: Calves are equal size bilaterally and non-tender. No edema. No discoloration. NEURO: Normal sensorium. No sensory or motor deficits noted. SKIN: No rash or jaundice noted. Course 1025: Past medical records reviewed. The patient was evaluated in room A2. A complete history and physical exam was performed. 1207: I reviewed the patient's case with Dr. Franklin-[facility] Hospitalist. Dr. Franklin will evaluate the patient for further management. Consultations Consultation #1: I reviewed the patient's case with Dr. Franklin-[facility] Hospitalist. Dr. Franklin will evaluate the patient for further management. Time: 12:07 Administered Medications Amlodipine Besylate (Norvasc) 10 mg PO QAM [facility] Stop: 07/13/19 14:47 Last Admin: 06/13/19 15:56 Dose: 10 mg Documented by: [id number] Enoxaparin Sodium (Lovenox) 40 mg SQ Q24H [facility] Stop: 07/14/19 15:29 Last Admin: 06/13/19 15:56 Dose: 40 mg Documented by: [id number] Sodium Chloride (Nss 1000ml) 1,000 mls @ 80 mls/hr IV .[id number] [facility] Stop: 06/14/19 03:17 Last Admin: 06/13/19 15:05 Dose: 80 mls/hr Documented by: [id number] Pantoprazole Sodium (Protonix) 40 mg PO BIDM [facility] Stop: 07/13/19 16:59 Last Admin: 06/13/19 15:59 Dose: 40 mg Documented by: [id number] Discontinued Medications Enoxaparin Sodium (Lovenox) 40 mg SQ Q24H [facility] Stop: 06/13/19 15:16 Last Admin: 06/13/19 15:58 Dose: Not Given Documented by: [id number] Hydromorphone HCl (Dilaudid) 0.5 mg IV Q15M PRN PRN Reason: Pain Stop: 06/27/19 10:30 Last Admin: 06/13/19 13:34 Dose: 0.5 mg Documented by: [id number] Admin: 06/13/19 12:49 Dose: 0.5 mg Documented by: [id number] Admin: 06/13/19 10:54 Dose: 0.5 mg Documented by: [id number] Cefoxitin Sodium (Mefoxin) 2,000 mg in 60 mls @ 100 mls/hr IV NOW STA Stop: 06/13/19 12:38 Last Infusion: 06/13/19 13:32 Dose: 0 mls/hr Documented by: [id number] Admin: 06/13/19 12:49 Dose: 100 mls/hr Documented by: [id number] Ioversol (Optiray 320 100ml) 93 ml IV ONCE PRN PRN Reason: Interaction Checking Stop: 06/17/19 11:34 Last Admin: 06/13/19 11:36 Dose: 93 ml Documented by: [id number] Ondansetron HCl (Zofran) 4 mg IV NOW STA Stop: 06/13/19 10:32 Last Admin: 06/13/19 10:53 Dose: 4 mg Documented by: [id number] Oxycodone HCl (Oxycontin) 15 mg PO NOW STA Stop: 06/13/19 15:41 Last Admin: 06/13/19 15:55 Dose: 15 mg Documented by: [id number] Prednisone (Prednisone) 20 mg PO TODAY@1530 [facility] Stop: 06/13/19 15:31 Last Admin: 06/13/19 15:55 Dose: 20 mg Documented by: [id number] Medical Decision Making Differential Diagnosis Differential diagnosis: Etiologies such as migraine headache, meningitis, sinusitis, CO exposure, ICH, SAH, infection, tumor, headache, sinus thrombosis, arterial dissection, as well as others were entertained. Medical Records Attestation: I reviewed the patient's medical records. Home Medications Current Medication List: was personally reviewed by me Laboratory Data Attestation: I reviewed the patient's lab results. Result diagrams: 06/13/19 10:25 06/13/19 14:21 Lab Results 06/13/19 06/13/19 06/13/19 Range/Units 10:25 10:25 11:04 WBC 7.86 (4.8-10.8) K/uL RBC 3.95 L (4.7-6.1) M/uL Hgb 11.4 L (14.0-18.0) g/dL POC Hgb 12.2 L (14.0-18.0) g/dl Hct 34.5 L (42-52) % POC Hct 36 L (42-52) % MCV 87.3 (80-100) fL MCH 28.9 (25-34) pg MCHC 33.0 (32-36) g/dL RDW Std Deviation 52.1 H (36.4-46.3) fL RDW Coeff of Elliot 16.2 H (11.5-14.5) % Plt Count 185 (130-400) K/uL MPV 10.0 (7.4-10.4) fL Immature Gran % (Auto) 0.1 % Neut % (Auto) 62.2 % Lymph % (Auto) 24.9 % Pope % (Auto) 12.8 % Eos % (Auto) 0.0 % Baso % (Auto) 0.0 % Immature Gran # (Auto) 0.01 (0.00-0.02) K/uL Neut # (Auto) 4.88 (1.4-6.5) K/uL Lymph # (Auto) 1.96 (1.2-3.4) K/uL Pope # (Auto) 1.01 H (0.11-0.59) K/uL Eos # (Auto) 0.00 (0-0.5) K/uL Baso # (Auto) 0.00 (0-0.2) K/uL POC Sodium 134 L (135-144) mEq/L Sodium 137 (136-145) mmol/L POC Potassium 7.1 H* (3.3-5.0) mEq/L Potassium 4.2 (3.5-5.1) mmol/L POC Chloride 99 L (101-112) mEq/L Chloride 102 (98-107) mmol/L Carbon Dioxide 25 (21-32) mmol/L POC Total CO2 30 (24-31) mEq/l Anion Gap 10.0 (3-11) POC Anion Gap 13.0 L (16-25) mmol/L POC BUN 13 (7-18) mg/dl BUN 10 (7-18) mg/dl Creatinine 0.60 (0.6-1.4) mg/dl POC Creatinine 0.5 L (0.6-1.3) mg/dl Est Cr Clr Drug Dosing 108.1 ml/min Est GFR ( Amer) 113.2 Est GFR (Non-Af Amer) 97.7 BUN/Creatinine Ratio 17.2 (10-20) Glucose 147 H (70-99) mg/dl POC Glucose (other) 156 H (70-99) mg/dl Calcium 8.8 (8.5-10.1) mg/dl POC Ioniz Calcium Murray 1.07 L (1.12-1.32) mmol/l Total Bilirubin 0.9 (0.2-1) mg/dl AST 155 H (15-37) U/L ALT 96 H (12-78) U/L Alkaline Phosphatase 502 H (45-117) U/L Total Creatine Kinase 46 (39-308) U/L CK-MB (CK-2) < 1.0 (0.5-3.6) ng/ml CK/CKMB % Calc TNP Troponin I < 0.015 (0-0.045) ng/ml Total Protein 7.8 (6.4-8.2) gm/dl Albumin 2.9 L (3.4-5.0) gm/dl Globulin 4.9 H (2.5-4.0) gm/dl Albumin/Globulin Ratio 0.6 L (0.9-2) Lipase 3568 H (73-393) U/L Specimen Hemolysis Urine Color Urine Appearance (Clear) Urine pH (4.5-7.5) Ur Specific [place] (1.000-1.030) Urine Protein (Negative) Urine Glucose (UA) (Negative) Urine Ketones (Negative) Urine Blood (Negative) Urine Nitrite (Negative) Urine Bilirubin (Negative) Urine Urobilinogen (Negative) Ur Leukocyte Esterase (Negative) 06/13/19 Range/Units 12:40 WBC (4.8-10.8) K/uL RBC (4.7-6.1) M/uL Hgb (14.0-18.0) g/dL POC Hgb (14.0-18.0) g/dl Hct (42-52) % POC Hct (42-52) % MCV (80-100) fL MCH (25-34) pg MCHC (32-36) g/dL RDW Std Deviation (36.4-46.3) fL RDW Coeff of Elliot (11.5-14.5) % Plt Count (130-400) K/uL MPV (7.4-10.4) fL Immature Gran % (Auto) % Neut % (Auto) % Lymph % (Auto) % Pope % (Auto) % Eos % (Auto) % Baso % (Auto) % Immature Gran # (Auto) (0.00-0.02) K/uL Neut # (Auto) (1.4-6.5) K/uL Lymph # (Auto) (1.2-3.4) K/uL Pope # (Auto) (0.11-0.59) K/uL Eos # (Auto) (0-0.5) K/uL Baso # (Auto) (0-0.2) K/uL POC Sodium (135-144) mEq/L Sodium (136-145) mmol/L POC Potassium (3.3-5.0) mEq/L Potassium (3.5-5.1) mmol/L POC Chloride (101-112) mEq/L Chloride (98-107) mmol/L Carbon Dioxide (21-32) mmol/L POC Total CO2 (24-31) mEq/l Anion Gap (3-11) POC Anion Gap (16-25) mmol/L POC BUN (7-18) mg/dl BUN (7-18) mg/dl Creatinine (0.6-1.4) mg/dl POC Creatinine (0.6-1.3) mg/dl Est Cr Clr Drug Dosing ml/min Est GFR ( Amer) Est GFR (Non-Af Amer) BUN/Creatinine Ratio (10-20) Glucose (70-99) mg/dl POC Glucose (other) (70-99) mg/dl Calcium (8.5-10.1) mg/dl POC Ioniz Calcium Murray (1.12-1.32) mmol/l Total Bilirubin (0.2-1) mg/dl AST (15-37) U/L ALT (12-78) U/L Alkaline Phosphatase (45-117) U/L Total Creatine Kinase (39-308) U/L CK-MB (CK-2) (0.5-3.6) ng/ml CK/CKMB % Calc Troponin I (0-0.045) ng/ml Total Protein (6.4-8.2) gm/dl Albumin (3.4-5.0) gm/dl Globulin (2.5-4.0) gm/dl Albumin/Globulin Ratio (0.9-2) Lipase (73-393) U/L Specimen Hemolysis Urine Color Yellow Urine Appearance Clear (Clear) Urine pH 8.5 H (4.5-7.5) Ur Specific [place] 1.022 (1.000-1.030) Urine Protein Negative (Negative) Urine Glucose (UA) Negative (Negative) Urine Ketones Negative (Negative) Urine Blood Negative (Negative) Urine Nitrite Negative (Negative) Urine Bilirubin Negative (Negative) Urine Urobilinogen Negative (Negative) Ur Leukocyte Esterase Negative (Negative) Imaging Data Radiologist's Impression: Radiology results as stated below per my review and the radiologist's interpretation: SINGLE VIEW CHEST CLINICAL HISTORY: Atypical chest pain. FINDINGS: An AP, portable, upright chest radiograph is compared to study dated 11/21/2016. The examination is degraded by portable technique and apical lordotic positioning. The heart is mildly enlarged noting atherosclerotic calcification of the thoracic aorta. The pulmonary vasculature is noncongested. Chronic interstitial thickening and elevation of the right hemidiaphragm are similar to previous. No airspace consolidation or large pleural effusion is identified. No pneumothorax is seen. The skeletal structures are osteopenic. The bony thorax is grossly intact. IMPRESSION: Mild cardiac enlargement with no active disease in the chest. Electronically signed by: Tony Morocho M.D. 06/13/2019 10:[address] abd pelvis IV con only CLINICAL HISTORY: Epigastric pain COMPARISON STUDY: 04/29/2018 TECHNIQUE: The patient was scanned in a dynamic helical fashion during intravenous administration of 93 cc Optiray 320. A dose lowering technique was utilized adhering to the principles of ALARA. CT DOSE: 652.27 mGycm FINDINGS: Lower chest: There are minimal basilar atelectatic changes. Liver: The liver has a cirrhotic morphology. The liver is mildly enlarged measuring 20.6 cm in length. There is no ductal dilatation. The portal vein appears patent. There is a nonspecific 6 mm hypodensity within the right hepatic lobe. Gallbladder: No gallstones are visualized. There is minimal pericholecystic fluid, likely secondary to hepatocellular disease. Spleen: The spleen is enlarged measuring 16.3 cm. Pancreas: There is mild peripancreatic edema. This likely reflects pancreatitis. There is an area of fullness and diminished enhancement in the pancreatic tail measuring approximately 3 cm. This likely represents focal pancreatitis. This finding however warrants a 3 month follow-up CT scan to exclude an underlying mass. Adrenal glands: Unremarkable. Kidneys: There is symmetric renal cortical enhancement. The kidneys are normal in size without hydronephrosis. Bowel: There are no transition zones to indicate bowel obstruction. There is no evidence of acute appendicitis. There is no evidence of acute diverticulitis. Peritoneum: There is low volume ascites, most pronounced in the perihepatic region. There is no free intraperitoneal air. Vasculature: There is mild ectasia of the infrarenal abdominal aorta which measures 25 mm in maximal diameter. There are varices at the level of the esophagogastric junction Adenopathy: There are prominent periportal lymph nodes, statistically reactive. Pelvic viscera: The patient appears be status post a prior prostatectomy Skeletal structures: Postsurgical changes are present within the lumbar spine IMPRESSION: 1. No evidence of bowel obstruction. No evidence of free air 2. Cirrhotic morphology of the liver with hepatosplenomegaly, low volume ascites 3.Too Small to characterize 6 mm hypodensity within the right hepatic lobe 4. Mildly enlarged periportal lymph nodes, likely reactive 5. The appendix is at the upper limits of normal in size without evidence of acute appendicitis 6. No evidence of acute diverticulitis 7. Varices at the level of the esophagogastric junction 8. Peripancreatic edema. Subtle fullness and diminished enhancement of the p ancreatic tail, likely secondary to focal pancreatitis. This finding warrants a 3 month follow-up study, to exclude an underlying mass.. Electronically signed by: Abdiaziz Nolen M.D. 06/13/2019 11:56 AM BILIARY ULTRASOUND CLINICAL HISTORY: Right upper quadrant abdominal pain COMPARISON STUDY: CT scan dated 06/13/2019 FINDINGS: The head and body of pancreas appear normal. The tail was poorly visualized. The liver has a coarsened echotexture, consistent with cirrhosis. The portal veins were patent but demonstrated diminished flow. The gallbladder appears sonographically normal. There is no ductal dilatation. There is no right-sided hydronephrosis. There is perihepatic ascites. IMPRESSION: 1. Coarsened hepatic echotexture consistent with cirrhosis 2. Perihepatic ascites 3. Ultrasonographically normal gallbladder 4. Patent portal veins which demonstrate diminished flow Electronically signed by: Abdiaziz Nolen M.D. 06/13/2019 12:35 PM ECG Data Attestation: I personally reviewed and interpreted this ECG as follows: Indication: abdominal pain Rate (beats per minute): 65 Rhythm: normal sinus Findings: no ST depression and no ST elevation Blood Pressure Blood Pressure Findings: Elevated blood pressure Blood Pressure Disposition: further management by hospitalist MDM Narrative This is a 78-year-old male who presents emergency department complaining of abdominal pain. The patient was given Dilaudid as well as Toradol for his pain. Repeat examination revealed improvement in the patient's symptoms. The katina ent's AST ALT and lipase were all found to be elevated. I am concerned that the patient may have choledocholithiasis. He was sent for a CAT scan of the abdomen pelvis which was concerning for pancreatitis. I did discuss the case with the hospitalist service who agreed to admit the patient. Patient was in agreement with the treatment plan. Impression & Plan Pancreatitis, acute Discharge Plan Visit Data *Final* Discharge Date/Time: 06/13/19 14:20 Chief Complaint: Cardiac Assessment Other Complaint: Back Injury/Pain ED Provider: Madhav Baldwin Discharge Problem: Pancreatitis, acute Patient Disposition: Admitted As Inpatient Discharge Instructions Interventions: ED Discharge Assessment Last Done: 06/13/19 14:20 The scribe's documentation has been prepared under my direction and personally reviewed by me in its entirety. I confirm that the note above accurately reflects all work, treatment, procedures, and medical decision making performed by me.
[2019-06-13] MEDS ORDERED: PANTOprazole 40 MG TAB PO SCH (17:00)
--- NOTE | 2019-06-13 17:44 | Magnetic Resonance Report ---
MR MRCP HISTORY: 78 years-old Male possible chollangitis acute chest and abdominal pain with pancreatitis an d history of prostate cancer and cirrhotic liver disease. COMPARISON: Right upper quadrant abdominal ultrasound and CT abdomen and pelvis of same day, MRCP 01/09 TECHNIQUE: MRCP without the use of IV contrast was obtained according to institutional protocol. FINDINGS: The imaged heart appears enlarged. Cirrhotic morphology of the liver with hepatosplenomegaly. Small v olume of abdominal ascites. Interstitial and peripancreatic edema with fluid within the anterior para renal space. Gastroesophageal varices. No bowel obstruction identified. Soft tissues and bony structu res appear unremarkable. Degenerative changes noted about the lumbar spine. Motion degraded exam. Unremarkable gallbladder. Common bile duct appears normal in caliber. No biliar y ductal dilation, biliary mass or focal filling defect to suggest choledocholithiasis. 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 There is no pancreatic ductal dilation identified. IMPRESSION: 1. Motion degraded exam. 2. Unremarkable appearance of the gallbladder without evidence of biliary ductal dilation or choledoc holithiasis. 3. Cirrhotic morphology of the liver with hepatosplenomegaly. 4. Suggestion of acute pancreatitis. 5. Small volume of abdominal pelvic ascites. 6. Gastroesophageal varices. The above report was generated using voice recognition software. It may contain grammatical, syntax o r spelling errors. Electronically signed by: Daquan Leone M.D. 06/13/2019 5:43 PM
[2019-06-13] MEDS: INSULIN ASPART 100 UNITS/ML 3 ML PEN SC SCH (17:50)
[2019-06-13] MEDS ORDERED: INSULIN GLARGINE SOLOSTAR 100 UNITS/ML 3 ML PEN SC ONE (21:00)
[2019-06-13] MEDS: GABAPENTIN 400 MG CAP PO SCH (21:03)
[2019-06-13] MEDS: ATORVASTATIN 40 MG TAB PO SCH (21:03)
[2019-06-13] MEDS: PROPRANOLOL HCL 20 MG TAB PO SCH (21:03)
[2019-06-13] MEDS: OXYCODONE HCL 15 MG TABCR (OXYCONTIN) PO SCH (21:03)
--- NOTE | 2019-06-13 21:38 | History & Physical Report ---
Date of Service June 13, 2019 Assessment & Plan (1) Pancreatitis, acute: Admit to PCU on telemetry Vital signs every 4 hours Follow-up with CBC CMP INR BNP, fecal occult blood, alpha-fetoprotein, ammonia, lipase, hemoglobin A1c, hepatitis acute panel Meld score in a.m. Keep n.p.o. Copious IV fluid hydration with lactated Ringer 125 cc/h to prevent volume overload, titrate up as needed. Pain management with opioids without Tylenol Avoid nonsteroidals due to possible bleeding Type and screen in case that H&H drops Follow closely H&H Pantoprazole 40 IV BID Propranolol 40 mg twice daily Patient advised to continue to be sober SCD for DVT ppx Follow up PLT. Appreciates GI recommendations Present on Admission?: Yes (2) Chronic pain: Continue pain medicine as above Present on Admission?: Yes (3) Anemia: Continue checking CBC every 8 hours Present on Admission?: Yes (4) Liver cirrhosis, alcoholic: See above Present on Admission?: Yes (5) Diabetes mellitus: AC&HS Glycemic control per pharmacy (6) Depression: Stable, Venlafaxine 150 mg PO Present on Admission?: Yes History of Present Illness Chief Complaint: Abdominal pain Primary Care Provider: Karley Branch DO Patient is a 78 years old male with past medical history of hypertension, prostate cancer diabetes mellitus type 2, GERD, alcohol induced pancreatitis, liver cirrhosis, who presents to the emergency room with fatigue weakness for 1 day followed by upper abdominal pain with radiation to his back and mild nausea and vomiting. Patient denies alcohol consumption at this time. He said nothing relieves his abdominal pain. Patient said that he cannot keep anything down. Patient denies fever chills chest pain shortness of breath hemoptysis hematuria melena dysuria red blood in the stool or bleeding bruising and ecchymosis. Labs reviewed: Sodium 135, potassium 3.9 chloride 100, anion gap 8 BUN 10, creatinine 0.79 GFR 87, glucose 184, troponin 0 0.015, Albumin 2.9, lipase 3568, AST 155, ALT 90, alkaline phosphatase 502, bilirubin 0.9 calcium 8.8. PT/INR pending. MRCP unremarkable appearance of the gallbladder without evidence of biliary ductal dilatation or choledocholithiasis. Chronic morphology of the liver with hepatosplenomegaly. Suggestion of acute pancreatitis. Small volume of abdominal pelvic ascites. Gastroesophageal varices. The case was discussed with [facility] and he will be they will evaluate patient today. Was made to admit patient to PCU with telemetry for acute pancreatitis, pain management and further evaluation. Allergies Allergy/AdvReac Type Severity Reaction Status Date / Time No Known Drug Allergies Allergy Unknown . Verified 06/13/19 10:58 Home Medications Home Medications Medication Instructions Recorded Confirmed Type hydrocodone-acetaminophen 1 tab PO BID 06/07/18 06/13/19 History amlodipine 10 mg tablet 10 mg PO QAM #30 tab 03/08/19 06/13/19 Rx cyclobenzaprine 10 mg tablet 10 mg PO BID PRN #60 tab 03/08/19 06/13/19 Rx propranolol 40 mg tablet 40 mg PO BID 30 Days #60 tab 03/08/19 06/13/19 Rx venlafaxine ER 150 mg 150 mg PO QAM #30 tab 03/08/19 06/13/19 Rx capsule,extended release 24 hr cephalexin 500 mg capsule 500 mg PO TID 10 Days #30 cap 06/09/19 06/13/19 Rx gabapentin 400 mg capsule 400 mg PO QPM cap 06/09/19 06/13/19 History lisinopril 20 mg tablet 10 mg PO QAM tab 06/09/19 06/13/19 History atorvastatin 80 mg PO QPM 06/13/19 06/13/19 History metformin 1,000 mg PO BID 06/13/19 06/13/19 History omega-3 fatty acids [Fish Oil 1,000 mg PO QAM 06/13/19 06/13/19 History Concentrate] pantoprazole 40 mg PO BIDM 06/13/19 06/13/19 History prednisone 1 mg PO UD 06/13/19 06/13/19 History Past Med/Surg History Medical History Cardiac murmur Chronic back pain CHRONIC NECK PAIN, NORMAL ROM Depression Diabetes mellitus, type 2 GERD (gastroesophageal reflux disease) History of prostate cancer s/p prostatectomy in 1998, no chemo/no radiation Hypertension Lumbar stenosis Pancreatitis 12/2016 Surgical History History of colonoscopy History of cystoscopy D/T INCONTINENCE History of esophagogastroduodenoscopy (EGD) History of laminectomy X2 History of prostatectomy History of tooth extraction Family History Sister Family history of diabetes mellitus Mother Colorectal cancer Brother Prostate cancer Father No problems noted. Son Thyroid disease Social History Preferred Language: Irish Communication Ability: Effective Beliefs That Will Affect Care: Orthodox Orthodox Beliefs: BAPTISM Current Living Situation: Spouse current occupational status: retired Other Information That Helps Us Care for You: No Feels Safe at Home: Yes Safety Concerns: Feels Safe At This Time Smoking Status: Never smoker Tobacco Type: smokeless tobacco ; Age Quit Using Tobacco: 42 ; Second Hand Exposure: No ; Hx Alcohol Use: Yes Alcohol type: wine Alcohol Intake Frequency: Daily Hx Substance Use: No caffeine: No Dental Care, Regularly: Yes Physical Activity Frequency Comment: limited by physical condition Seatbelt Use: always Review of Systems Review of Systems: All systems reviewed & are unremarkable except as noted in HPI & below Physical Exam Constitutional: WD/WN, vitals as above well developed Eyes: PERRL, conjunctivae normal, anicteric sclerae ENMT: external ear and nose normal, oropharynx normal Neck: trachea midline, no thyromegaly Respiratory: normal respiratory effort, lungs clear to auscultation Cardiovascular: Heart Sounds: normal S1 and normal S2 Gastrointestinal (Abdomen): Inspection/Auscultation: + abdomen distended (Mildly distended) Percussion/Palpation: + abdomen tender, + guarding, abdomen soft, + splenomegaly and + dullness to percussion Musculoskeletal: no cyanosis or clubbing, extremities motor strength 5/5 Skin: no rashes, warm and dry Neurologic: patellar DTR's 2+ bilat, sensation intact Psychiatric: A+Ox3, euthymic affect Lymphatic: no cervical or axillary lymphadenopathy Results & Data Vital Signs (Past 12 Hours) Vital Signs Temp Pulse Pulse Resp BP BP Pulse Ox 06/13/19 19:39 36.5 C 81 18 147/82 H 96 06/13/19 15:59 36.6 C 75 18 173/92 H 95 06/13/19 14:48 36.3 C L 71 16 152/76 H 97 06/13/19 14:20 82 20 141/78 H 95 06/13/19 13:36 77 19 161/90 H 96 06/13/19 12:46 77 20 165/95 H 95 06/13/19 10:36 96 06/13/19 10:29 36.6 C 69 19 157/84 H 96 Code Status & VTE Plan Code Status Full code VTE Prophylaxis Plan VTE Prophylaxis will be ordered: Yes PG Care Time/CCT Total # of Minutes Spent Total Time Spent with Patient: Total time spent is greater than 50% in coordination of care (as documented) at patient's floor/unit and/or counseling patient: (1) Pancreatitis, acute Acute pancreatitis complication: unspecified Pancreatitis type: unspecified pancreatitis type Qualified Code(s): K85.90 - Acute pancreatitis without necrosis or infection, unspecified
[2019-06-13] MEDS ORDERED: ONDANSETRON INJ 2 MG/ML 2 ML VIAL IV PRN (21:41)
[2019-06-13] MEDS: LACTATED RINGER'S 1,000 ML IV SCH (21:50)
[2019-06-13] MEDS ORDERED: PROMETHAZINE HCL 25 MG in SODIUM CHLORIDE 0.9% 50 ML IV PRN (21:55)
[2019-06-13 22:14] LABS: Hemoglobin 13.7 g/dL (14.0-18.0); Immature Granulocytes # (auto) 0.01 K/uL (0.00-0.02); Immature Granulocytes % (auto) 0.1 %; Lymphocytes % (auto) 12.5 %; Mean Corpuscular Hemoglobin 29.6 pg (25-34); Mean Corpuscular Hgb Conc 33.4 g/dL (32-36); Mean Corpuscular Volume 88.6 fL (80-100); Monocytes # (auto) 0.98 K/uL (0.11-0.59); Monocytes % (auto) 11.1 %; Neutrophils % (auto) 76.3 %; Platelet Count 201 K/uL (130-400); RDW Coefficient of Variation 16.1 % (11.5-14.5); Red Blood Count 4.63 M/uL (4.7-6.1); White Blood Count 8.79 K/uL (4.8-10.8)
[2019-06-13 22:35] LABS: Albumin Level 3.1 gm/dl (3.4-5.0); BUN Creatinine Ratio 15.6 (10-20); Calcium 8.9 mg/dl (8.5-10.1); Creatinine Clr Calc Pharmacy 101.4 ml/min; Est GFR (African American) 110.2; Est GFR (Non-African American) 95.1; Potassium 3.8 mmol/L (3.5-5.1)
[2019-06-13 22:39] LABS: Albumin Globulin Ratio 0.6 (0.9-2); Bilirubin,Total 1.3 mg/dl (0.2-1); Globulin 4.8 gm/dl (2.5-4.0); Total Protein 7.9 gm/dl (6.4-8.2)
[2019-06-14] MEDS: INSULIN ASPART 100 UNITS/ML 3 ML PEN SC SCH ×4 (00:38→18:30)
[2019-06-14] MEDS: LACTATED RINGER'S 1,000 ML IV SCH ×3 (05:43→22:39)
[2019-06-14 06:53] LABS: Basophils # (auto) 0.01 K/uL (0-0.2); Basophils % (auto) 0.1 %; Hematocrit (blood only) 43.3 % (42-52); Hemoglobin 14.7 g/dL (14.0-18.0); Immature Granulocytes # (auto) 0.04 K/uL (0.00-0.02); Immature Granulocytes % (auto) 0.3 %; Lymphocytes # (auto) 1.67 K/uL (1.2-3.4); Mean Corpuscular Hemoglobin 29.7 pg (25-34); Mean Corpuscular Hgb Conc 33.9 g/dL (32-36); Mean Corpuscular Volume 87.5 fL (80-100); Monocytes # (auto) 1.31 K/uL (0.11-0.59); Monocytes % (auto) 8.6 %; Neutrophils # (auto) 12.12 K/uL (1.4-6.5); Platelet Count 222 K/uL (130-400); RDW Coefficient of Variation 16.3 % (11.5-14.5); RDW Standard Deviation 52.2 fL (36.4-46.3); Red Blood Count 4.95 M/uL (4.7-6.1); White Blood Count 15.15 K/uL (4.8-10.8)
[2019-06-14 07:05] LABS: INR 1.3 (0.9-1.1); Prothrombin Time 12.9 Seconds (9.0-12.0)
[2019-06-14 07:23] LABS: Estimated Average Glucose 108 mg/dl; Hemoglobin A1C 5.4 % (4.5-5.6)
[2019-06-14 07:27] LABS: Albumin Level 2.9 gm/dl (3.4-5.0); BUN Creatinine Ratio 15.4 (10-20); Calcium 8.7 mg/dl (8.5-10.1); Creatinine Clr Calc Pharmacy 86.1 ml/min; Est GFR (African American) 103.8; Est GFR (Non-African American) 89.6; Potassium 3.9 mmol/L (3.5-5.1)
[2019-06-14 07:32] LABS: Albumin Globulin Ratio 0.6 (0.9-2); Bilirubin,Total 1.4 mg/dl (0.2-1); Globulin 5.2 gm/dl (2.5-4.0); Total Protein 8.1 gm/dl (6.4-8.2)
[2019-06-14] MEDS: PROPRANOLOL HCL 20 MG TAB PO SCH ×2 (07:48→20:58)
[2019-06-14] MEDS: PANTOprazole 40 MG in SYRINGE 0 ML IV SCH ×2 (07:48→20:58)
[2019-06-14] MEDS: LISINOPRIL 10 MG TAB PO SCH (07:49)
[2019-06-14] MEDS: OMEGA-3 (PURIFIED FISH OIL) 1 GM CAP PO SCH (07:50)
[2019-06-14] MEDS: predniSONE 10 MG TABLET PO SCH (07:50)
[2019-06-14] MEDS: VENLAFAXINE HCL XR 150 MG CAPXR PO SCH (07:50)
[2019-06-14] MEDS: OXYCODONE HCL 15 MG TABCR (OXYCONTIN) PO SCH (07:53)
[2019-06-14] MEDS: AMLODIPINE BESYLATE 5 MG TAB PO SCH (08:35)
[2019-06-14] MEDS ORDERED: OXYCODONE HCL IR 5 MG TAB (IMMEDIATE RELEASE) PO PRN (08:56)
--- NOTE | 2019-06-14 09:04 | Pain Management Consultation ---
Date of Consultation June 14, 2019 Assessment & Plan (1) Pancreatitis: 1. As the patient does report "feeling goofy" from the OxyContin/Oxycodone dosing, I have switched the order to Oxycodone 5 mg 1-2 tablets PO x 4 hours PRN. 2. Patient is reporting a significant improvement in pain since yesterday so I would not pursue a Celiac Plexus Nerve Block at this time since the acute epi sode appears short term. 3. Thank you for the consultation. Please call with any questions or concerns. Present on Admission?: Yes History of Present Illness Reason for Consultation: Abdominal pain Attending Physician: Duane Banda, DO History of Present Illness Mr. Huggins is a 78 year old white male that has been admitted to the [facility] for acute pancreatitis. Symptoms started acutely yesterday. Pain is described as a sharp shooting pain in the epigastrium and radiating into the back. He did have associated nausea and vomiting. Patient does drink alcohol frequently - reportedly typically 2-3 drinks a day. Patient does have associated fatty liver, esophageal varices, and alcoholic cirrhosis. Patient has been on prescribed Hydrocodone 10/325mg for several years and would take it only intermittently for chronic neck and back pain. Over the last several months the pain in the neck and back has been worse so he has consistently been taking the Hydrocodone twice daily. Since admission, he has been prescribed OxyContin 15mg BID and Oxycodone 5mg x 6 hours PRN breakthrough pain. He does report feeling a bit "goofy" from the medications. Patient states that his pain has significantly improved since yesterday. There is a residual aching in the epigastrium. No nausea, vomiting, flank pain, constipation, urinary sx, or ETOH withdrawal symptoms. Case discussed with Dr. Amy Jones Pain Assessment Full Body Front + Back: 1. [facility] Combined Pain Scale: 3-Mild - Interferes with pleasures of life. Stops some activities Allergies Allergy/AdvReac Type Severity Reaction Status Date / Time No Known Drug Allergies Allergy Unknown . Verified 06/13/19 10:58 Home Medications Home Medications Medication Instructions Recorded Confirmed Type hydrocodone-acetaminophen 1 tab PO BID 06/07/18 06/13/19 History amlodipine 10 mg tablet 10 mg PO QAM #30 tab 03/08/19 06/13/19 Rx cyclobenzaprine 10 mg tablet 10 mg PO BID PRN #60 tab 03/08/19 06/13/19 Rx propranolol 40 mg tablet 40 mg PO BID 30 Days #60 tab 03/08/19 06/13/19 Rx venlafaxine ER 150 mg 150 mg PO QAM #30 tab 03/08/19 06/13/19 Rx capsule,extended release 24 hr cephalexin 500 mg capsule 500 mg PO TID 10 Days #30 cap 06/09/19 06/13/19 Rx gabapentin 400 mg capsule 400 mg PO QPM cap 06/09/19 06/13/19 History lisinopril 20 mg tablet 10 mg PO QAM tab 06/09/19 06/13/19 History atorvastatin 80 mg PO QPM 06/13/19 06/13/19 History metformin 1,000 mg PO BID 06/13/19 06/13/19 History omega-3 fatty acids [Fish Oil 1,000 mg PO QAM 06/13/19 06/13/19 History Concentrate] pantoprazole 40 mg PO BIDM 06/13/19 06/13/19 History prednisone 1 mg PO UD 06/13/19 06/13/19 History Patient History Medical History Hypertension Cardiac murmur Depression Diabetes mellitus, type 2 GERD (gastroesophageal reflux disease) Pancreatitis 12/2016 Chronic back pain CHRONIC NECK PAIN, NORMAL ROM History of prostate cancer s/p prostatectomy in 1998, no chemo/no radiation Lumbar stenosis Surgical History History of laminectomy X2 History of tooth extraction History of prostatectomy History of esophagogastroduodenoscopy (EGD) History of colonoscopy History of cystoscopy D/T INCONTINENCE Family History Sister Family history of diabetes mellitus Mother Colorectal cancer Brother Prostate cancer Father No problems noted. Son Thyroid disease Social History Preferred Language: Chinese Communication Ability: Effective Beliefs That Will Affect Care: Islam Islam Beliefs: CHURCH Current Living Situation: Spouse current occupational status: retired Other Information That Helps Us Care for You: No Feels Safe at Home: Yes Safety Concerns: Feels Safe At This Time Smoking Status: Never smoker Tobacco Type: smokeless tobacco ; Age Quit Using Tobacco: 42 ; Second Hand Exposure: No ; Hx Alcohol Use: Yes Alcohol type: wine Alcohol Intake Frequency: Daily Hx Substance Use: No caffeine: No Dental Care, Regularly: Yes Physical Activity Frequency Comment: limited by physical condition Seatbelt Use: always Physical Exam Physical Exam: GENERAL: 78 year old white male. Speech and cognition is intact. Mood and affect is appropriate. In no acute distress. HEAD: Normocephalic; atraumatic. EYES: Pupils are round, equal, and reactive to light; EOM intact. ENT: No external ear discharge or lesions. No rhinorrhea or epistaxis. No mucosal lesions. + mouth is dry. CHEST: Regular chest respiration and excursion. ABDOMEN: Mild abdominal distension. Mild tenderness along the epigastrium. No rebound tenderness or peritoneal signs. No CVA tenderness. EXTREMITIES: Using extremities appropriately. NEURO: CN II-XII grossly intact with no focal deficits noted. Gait not witnessed. SKIN: No lesions, erythema, or rashes noted.
[2019-06-14 09:08] LABS: Hepatitis B Surface Antigen Neg (Neg)
--- NOTE | 2019-06-14 09:33 | Gastroenterology Progress Note ---
Date of Service June 14, 2019 Assessment & Plan (1) Pancreatitis, acute: (2) Laennec's cirrhosis (alcoholic): 1. Continue supportive care with IV fluids, antiemetics and analgesics as prescribed. 2. As pain/inflammatory markers are improving, per guidelines can consider dietary advancement to clear liquids with further advancement to a soft, low residue, low fat diet over the next 24 hours as tolerated. 3. Recommend outpatient autoantibody testing as ordered by Dr. Nava previously. 4. Reinforced strict ETOH avoidance upon discharge. Supervising Physician Co-Signing Physician Notes Agree with IRISH Andarde as above Abd: Soft, Tender, slightly distended, +BS Continue current therapy Discussed avoidance of all alcohol in the future Subjective Patient reports slight improvement of abdominal pain today. Rates pain as 7/10, localized to the epigastric region with associated nausea. No vomiting. Liver panel is improving and was as follows: TB 1.4, AST 96, ALT 84, ALP 472. Amylase 506 and lipase down to 2923 today. MRCP was negative. Patient was recommended to have outpatient autoantibody testing which appears the patient did not have performed after recent office visit with Dr. Nava in April. Review of Systems Constitutional: no fever and no chills Respiratory: no cough, no dyspnea and no dyspnea on exertion Cardiovascular: no chest pain and no palpitations Gastrointestinal: as per Subjective / HPI Integumentary: no yellowing of the skin Neurologic: no dizziness, no syncope and no confusion Hematologic / Lymphatic: no easy bleeding and no easy bruising Physical Exam Constitutional: WD/WN, vitals as above Eyes: EOM intact bilaterally Neck: normal appearance Respiratory: normal respiratory effort, lungs clear to auscultation Cardiovascular: Rate/Rhythm: regular rate and regular rhythm Heart Sounds: + murmur Gastrointestinal (Abdomen): Inspection/Auscultation: + abdomen distended and normal bowel sounds Percussion/Palpation: + abdomen tender (moderate epigastric pain) Musculoskeletal: Extremities: no cyanosis no lower extremity edema Skin: no rashes, warm and dry Neurologic: moves all extremities Psychiatric: A+Ox3, euthymic affect Results & Data Vital Signs (Past 12 Hours) Vital Signs Temp Pulse Pulse Resp BP Pulse Ox 06/14/19 07:22 36.6 C 74 18 138/85 93 06/14/19 04:06 36.4 C L 74 16 159/87 H 94 06/14/19 01:16 76 06/13/19 23:14 36.4 C L 72 16 159/84 H 92 PG Care Time/CCT Total # of Minutes Spent Total Time Spent with Patient: Total time spent is greater than 50% in coordination of care (as documented) at patient's floor/unit and/or counseling patient: (1) Pancreatitis, acute Acute pancreatitis complication: unspecified Pancreatitis type: unspecified pancreatitis type Qualified Code(s): K85.90 - Acute pancreatitis without necrosis or infection, unspecified
[2019-06-14 09:36] LABS: Hepatitis C IgG 13Yrs+Old_Rflx Neg (Neg)
[2019-06-14 14:20] LABS: Basophils # (auto) 0.01 K/uL (0-0.2); Basophils % (auto) 0.1 %; Hematocrit (blood only) 39.9 % (42-52); Hemoglobin 13.8 g/dL (14.0-18.0); Immature Granulocytes # (auto) 0.05 K/uL (0.00-0.02); Immature Granulocytes % (auto) 0.3 %; Lymphocytes # (auto) 2.34 K/uL (1.2-3.4); Lymphocytes % (auto) 11.9 %; Mean Corpuscular Hemoglobin 30.4 pg (25-34); Mean Corpuscular Hgb Conc 34.6 g/dL (32-36); Mean Corpuscular Volume 87.9 fL (80-100); Mean Platelet Volume 10.6 fL (7.4-10.4); Monocytes # (auto) 2.03 K/uL (0.11-0.59); Monocytes % (auto) 10.3 %; Neutrophils # (auto) 15.25 K/uL (1.4-6.5); Neutrophils % (auto) 77.4 %; Platelet Count 257 K/uL (130-400); RDW Coefficient of Variation 16.4 % (11.5-14.5); RDW Standard Deviation 52.5 fL (36.4-46.3); Red Blood Count 4.54 M/uL (4.7-6.1); White Blood Count 19.68 K/uL (4.8-10.8)
[2019-06-14 14:41] LABS: Albumin Level 2.5 gm/dl (3.4-5.0); BUN Creatinine Ratio 23.1 (10-20); Calcium 8.5 mg/dl (8.5-10.1); Creatinine Clr Calc Pharmacy 99.6 ml/min; Est GFR (African American) 110.2; Est GFR (Non-African American) 95.1; Potassium 3.8 mmol/L (3.5-5.1)
[2019-06-14 14:43] LABS: Albumin Globulin Ratio 0.6 (0.9-2); Bilirubin,Total 1.4 mg/dl (0.2-1); Globulin 4.4 gm/dl (2.5-4.0); Total Protein 6.9 gm/dl (6.4-8.2)
--- NOTE | 2019-06-14 14:43 | Pharmacy Report ---
Glycemic Control Consultation - Date of Service June 14, 2019 - Scope Scope: Glycemic Pharmacist consulted by Dr Franklin on 06/13/19 for glycemic control and to write orders per [facility] inpatient glycemic control protocol - Objective Weight: 71.7 kg Accuchecks BSG (last 24hrs): 06/13/19 06/13/19 06/13/19 14:21 16:18 17:48 Glucose 184 H POC Glucose 160 H 169 H 06/13/19 06/13/19 06/13/19 20:17 20:57 21:57 Glucose 150 H POC Glucose 148 H 143 H 06/14/19 06/14/19 06/14/19 00:07 03:00 06:01 Glucose POC Glucose 107 H 102 H 107 H 06/14/19 06/14/19 06:32 11:14 Glucose 105 H POC Glucose 94 Laboratory Data (last 24hrs): 06/13/19 06/13/19 06/14/19 14:21 21:57 06:32 Potassium 3.9 3.8 3.9 Carbon Dioxide 28 29 28 Anion Gap 8.0 8.0 9.0 Creatinine 0.79 0.64 0.74 Est Cr Clr Drug Dosing 82.1 101.4 86.1 HbA1c: Hemoglobin A1c 5.4 % (4.5-5.6) 06/14/19 06:32 - Recent Pertinent Medications Outpatient Anti-diabetic Regimen: * Metformin 1000 mg BID * A1c = 5.4 % [06/14/19] The patient received: * Basal insulin: Lantus 10 units given yesterday at 2100. * Correctional Insulin: Novolog Correction per scale ACHS Goal Range: Low 110 mg/dL - High 140 mg/dL Correction Factor: 25 mg/dL/unit * Prandial insulin: Per carb ratio of 1 unit per 8 grams CHO consumed * Oral Agents: Metformin on hold. Risk Factors for Insulin Resistance: * Steroids: Prednisone 10 mg * Infection: none * IVF: LR at 125 ml/hr * Diet: NPO - Assessment & Plan Assessment & Plan: ASSESSMENT: * 78 y/o M with history of Type 2 Diabetes and currently admitted for Pancreatitis and started on Prednisone therapy. * Patient was managed on Metformin on at home. * Oral agents are not recommended for inpatient use d/t drug interactions, changing PO intake, and difficulty titrating for acute hyper/hypoglycemia. ADA recommends re-initiating outpatient oral agents 1-2 days prior to discharge when appropriate if they were held on admission. * Will hold oral agents for admission and utilize SQ basal bolus insulin regimen which is the recommended regimen for inpatient glycemic control. * Will initiate weight based insulin dosing for insulin ofe patient and titrate based on BSG trends. * Prednisone dose was started at 20 mg yesterday. Dose decreased to 10 mg daily starting today. * Patient received a dose of Lantus 10 units yesterday night. Since Prednisone dose was decreased this morning and BSGs have been at goal today, I will not re-dose him with Lantus today. Also patient continues to be NPO as of now. Plan is to advance diet slowly. * Will continue managing with SQ Novolog only. PLAN FOR INPATIENT GLYCEMIC CONTROL: * Holding outpatient oral diabetes medications * Bolus insulin * NovoLog per scale ACHS or Q6hrs while NPO * Goal Range: Low 110 mg/dL - High 140 mg/dL * Correction Factor: 25 mg/dL/unit * Nutritional / Prandial insulin per carb ratio of 1 unit per 8 grams CHO consumed * Please note that the plan above was derived based on current level of insulin resistance and hospital stress. These recommendations are appropriate for inpatient admission only. Plan of care upon discharge will need to be reassessed to avoid potential outpatient hypo/hyperglycemia. Thank you.
[2019-06-14] MEDS ORDERED: ENOXAPARIN INJ 40 MG/0.4 ML SYR SQ SCH (15:30)
--- NOTE | 2019-06-14 17:24 | Hospitalist Progress Note ---
Date of Service June 14, 2019 Assessment & Plan (1) Pancreatitis, acute: continue aggressive IV fluids keep NPO today, possible clears tomorrow lipase trending down slowly likely due to alcohol, no gall stones seen on MRCP and biliary ducts not dilated GI following, appreciate their input (2) Chronic pain: Continue pain medicine as above (3) Anemia: Hb stable at 13 (4) Liver cirrhosis, alcoholic: patient needs to stop drinking but he has no interest in doing such follows with GI, they have discussed sobriety many times (5) Diabetes mellitus: AC&HS Glycemic control per pharmacy monitor for hypoglycemia (6) Depression: Stable, Venlafaxine 150 mg PO Subjective patient resting in bed, abdomen is slightly painful but a lot better today reviewed labs, lipase trending down, LFT still mildly elevated reviewed results of MRCP, no gall stones or biliary disease, has cirrhosis and evidence of pancreatitis d/w Yamilet Orellana with GI, knows patient well he has a history of alcoholism and does not have plans to quit he says that he has no appetite, he is okay on waiting until tomorrow to advance diet no chest pain, no dyspnea Review of Systems Review of Systems: All systems reviewed & are unremarkable except as noted in HPI & below Gastrointestinal: + abdominal pain and + early satiety; no nausea, no vomiting, no constipation and no diarrhea/loose stools Physical Exam Constitutional: WD/WN, vitals as above Eyes: PERRL, conjunctivae normal, anicteric sclerae ENMT: external ear and nose normal, oropharynx normal Neck: trachea midline, no thyromegaly Respiratory: normal respiratory effort, lungs clear to auscultation Cardiovascular: RRR, no murmur, no edema Gastrointestinal (Abdomen): Inspection/Auscultation: + abdomen distended; + abdomen abnormal to inspection Percussion/Palpation: + abdomen tender (epigastric), abdomen soft and + hepatomegaly; no guarding and abdomen not rigid Musculoskeletal: no cyanosis or clubbing, extremities motor strength 5/5 Skin: no rashes, warm and dry Neurologic: patellar DTR's 2+ bilat, sensation intact and PERRL, EOMI, accommodation nl, no face palsy, no dysarthria Psychiatric: A+Ox3, euthymic affect Lymphatic: no cervical or axillary lymphadenopathy Results & Data Vital Signs (Past 12 Hours) Vital Signs Temp Pulse Pulse Resp BP BP Pulse Ox 06/14/19 15:07 36.7 C 72 24 132/82 91 06/14/19 13:00 37.1 C 75 16 124/75 91 06/14/19 11:50 36.5 C 72 16 132/77 90 06/14/19 08:00 85 06/14/19 07:22 36.6 C 74 18 138/85 93 Pulse Ox 06/14/19 15:07 06/14/19 13:00 91 06/14/19 11:50 06/14/19 08:00 06/14/19 07:22 Laboratory Results Laboratory Results - last 24 hr 06/13/19 06/13/19 06/13/19 17:48 20:17 20:57 WBC RBC Hgb Hct MCV MCH MCHC RDW Std Deviation RDW Coeff of Elliot Plt Count MPV Immature Gran % (Auto) Neut % (Auto) Lymph % (Auto) [place] % (Auto) Eos % (Auto) Baso % (Auto) Immature Gran # (Auto) Neut # (Auto) Lymph # (Auto) [place] # (Auto) Eos # (Auto) Baso # (Auto) PT INR Sodium Potassium Chloride Carbon Dioxide Anion Gap BUN Creatinine Est Cr Clr Drug Dosing Est GFR ( Amer) Est GFR (Non-Af Amer) BUN/Creatinine Ratio Glucose POC Glucose 169 H 148 H 143 H Estimat Average Glucose Hemoglobin A1c Calcium Total Bilirubin AST ALT Alkaline Phosphatase Ammonia NT-Pro-B Natriuret Pep Total Protein Albumin Globulin Albumin/Globulin Ratio Amylase Lipase Tumor Marker AFP Hepatitis A IgM Ab Hep Bs Antigen Hep B Core IgM Ab Hepatitis C Antibody 06/13/19 06/13/19 06/14/19 21:57 21:57 00:07 WBC 8.79 RBC 4.63 L Hgb 13.7 L Hct 41.0 L MCV 88.6 MCH 29.6 MCHC 33.4 RDW Std Deviation 52.0 H RDW Coeff of Elliot 16.1 H Plt Count 201 MPV 10.0 Immature Gran % (Auto) 0.1 Neut % (Auto) 76.3 Lymph % (Auto) 12.5 [place] % (Auto) 11.1 Eos % (Auto) 0.0 Baso % (Auto) 0.0 Immature Gran # (Auto) 0.01 Neut # (Auto) 6.70 H Lymph # (Auto) 1.10 L [place] # (Auto) 0.98 H Eos # (Auto) 0.00 Baso # (Auto) 0.00 PT INR Sodium 135 L Potassium 3.8 Chloride 98 Carbon Dioxide 29 Anion Gap 8.0 BUN 10 Creatinine 0.64 Est Cr Clr Drug Dosing 101.4 Est GFR ( Amer) 110.2 Est GFR (Non-Af Amer) 95.1 BUN/Creatinine Ratio 15.6 Glucose 150 H POC Glucose 107 H Estimat Average Glucose Hemoglobin A1c Calcium 8.9 Total Bilirubin 1.3 H AST 112 H ALT 91 H Alkaline Phosphatase 494 H Ammonia NT-Pro-B Natriuret Pep 471 Total Protein 7.9 Albumin 3.1 L Globulin 4.8 H Albumin/Globulin Ratio 0.6 L Amylase Lipase Tumor Marker AFP Hepatitis A IgM Ab Hep Bs Antigen Hep B Core IgM Ab Hepatitis C Antibody 06/14/19 06/14/19 06/14/19 03:00 06:01 06:32 WBC RBC Hgb Hct MCV MCH MCHC RDW Std Deviation RDW Coeff of [place] Plt Count MPV Immature Gran % (Auto) Neut % (Auto) Lymph % (Auto) [place] % (Auto) Eos % (Auto) Baso % (Auto) Immature Gran # (Auto) Neut # (Auto) Lymph # (Auto) [place] # (Auto) Eos # (Auto) Baso # (Auto) PT INR Sodium Potassium Chloride Carbon Dioxide Anion Gap BUN Creatinine Est Cr Clr Drug Dosing Est GFR ( Amer) Est GFR (Non-Af Amer) BUN/Creatinine Ratio Glucose POC Glucose 102 H 107 H Estimat Average Glucose 108 Hemoglobin A1c 5.4 Calcium Total Bilirubin AST ALT Alkaline Phosphatase Ammonia NT-Pro-B Natriuret Pep Total Protein Albumin Globulin Albumin/Globulin Ratio Amylase Lipase Tumor Marker AFP Hepatitis A IgM Ab Hep Bs Antigen Hep B Core IgM Ab Hepatitis C Antibody 06/14/19 06/14/19 06/14/19 06:32 06:32 06:32 WBC RBC Hgb Hct MCV MCH MCHC RDW Std Deviation RDW Coeff of [place] Plt Count MPV Immature Gran % (Auto) Neut % (Auto) Lymph % (Auto) [place] % (Auto) Eos % (Auto) Baso % (Auto) Immature Gran # (Auto) Neut # (Auto) Lymph # (Auto) [place] # (Auto) Eos # (Auto) Baso # (Auto) PT 12.9 H INR 1.3 H Sodium 135 L Potassium 3.9 Chloride 98 Carbon Dioxide 28 Anion Gap 9.0 BUN 11 Creatinine 0.74 Est Cr Clr Drug Dosing 86.1 Est GFR ( Amer) 103.8 Est GFR (Non-Af Amer) 89.6 BUN/Creatinine Ratio 15.4 Glucose 105 H POC Glucose Estimat Average Glucose Hemoglobin A1c Calcium 8.7 Total Bilirubin 1.4 H AST 96 H ALT 84 H Alkaline Phosphatase 472 H Ammonia NT-Pro-B Natriuret Pep 549 Total Protein 8.1 Albumin 2.9 L Globulin 5.2 H Albumin/Globulin Ratio 0.6 L Amylase 506 H Lipase 2923 H Tumor Marker AFP Hepatitis A IgM Ab Hep Bs Antigen Neg Hep B Core IgM Ab Hepatitis C Antibody Neg 06/14/19 06/14/19 06/14/19 06:32 06:32 06:38 WBC 15.15 H RBC 4.95 Hgb 14.7 Hct 43.3 MCV 87.5 MCH 29.7 MCHC 33.9 RDW Std Deviation 52.2 H RDW Coeff of Elliot 16.3 H Plt Count 222 MPV 10.0 Immature Gran % (Auto) 0.3 Neut % (Auto) 80.0 Lymph % (Auto) 11.0 [place] % (Auto) 8.6 Eos % (Auto) 0.0 Baso % (Auto) 0.1 Immature Gran # (Auto) 0.04 H Neut # (Auto) 12.12 H Lymph # (Auto) 1.67 [place] # (Auto) 1.31 H Eos # (Auto) 0.00 Baso # (Auto) 0.01 PT INR Sodium Potassium Chloride Carbon Dioxide Anion Gap BUN Creatinine Est Cr Clr Drug Dosing Est GFR ( Amer) Est GFR (Non-Af Amer) BUN/Creatinine Ratio Glucose POC Glucose Estimat Average Glucose Hemoglobin A1c Calcium Total Bilirubin AST ALT Alkaline Phosphatase Ammonia 34.0 H NT-Pro-B Natriuret Pep Total Protein Albumin Globulin Albumin/Globulin Ratio Amylase Lipase Tumor Marker AFP Pending Hepatitis A IgM Ab Pending Hep Bs Antigen Hep B Core IgM Ab Pending Hepatitis C Antibody 06/14/19 06/14/19 06/14/19 11:14 13:53 13:53 WBC 19.68 H RBC 4.54 L Hgb 13.8 L Hct 39.9 L MCV 87.9 MCH 30.4 MCHC 34.6 RDW Std Deviation 52.5 H RDW Coeff of [place] 16.4 H Plt Count 257 MPV 10.6 H Immature Gran % (Auto) 0.3 Neut % (Auto) 77.4 Lymph % (Auto) 11.9 [place] % (Auto) 10.3 Eos % (Auto) 0.0 Baso % (Auto) 0.1 Immature Gran # (Auto) 0.05 H Neut # (Auto) 15.25 H Lymph # (Auto) 2.34 [place] # (Auto) 2.03 H Eos # (Auto) 0.00 Baso # (Auto) 0.01 PT INR Sodium 136 Potassium 3.8 Chloride 101 Carbon Dioxide 27 Anion Gap 8.0 BUN 15 Creatinine 0.64 Est Cr Clr Drug Dosing 99.6 Est GFR ( Amer) 110.2 Est GFR (Non-Af Amer) 95.1 BUN/Creatinine Ratio 23.1 H Glucose 93 POC Glucose 94 Estimat Average Glucose Hemoglobin A1c Calcium 8.5 Total Bilirubin 1.4 H AST 76 H ALT 68 Alkaline Phosphatase 409 H Ammonia NT-Pro-B Natriuret Pep Total Protein 6.9 Albumin 2.5 L Globulin 4.4 H Albumin/Globulin Ratio 0.6 L Amylase Lipase Tumor Marker AFP Hepatitis A IgM Ab Hep Bs Antigen Hep B Core IgM Ab Hepatitis C Antibody Diagnostic Findings MRCP IMPRESSION: 1. Motion degraded exam. 2. Unremarkable appearance of the gallbladder without evidence of biliary ductal dilation or choledocholithiasis. 3. Cirrhotic morphology of the liver with hepatosplenomegaly. 4. Suggestion of acute pancreatitis. 5. Small volume of abdominal pelvic ascites. 6. Gastroesophageal varices. Medications Administered Current Inpatient Medications Al Hydrox/Mg Hydrox/Simethicone (Maalox) 15 ml PO Q4H PRN PRN Reason: Dyspepsia Stop: 07/13/19 14:47 Amlodipine Besylate (Norvasc) 10 mg PO QAM AMNA Stop: 07/13/19 14:47 Last Admin: 06/14/19 08:35 Dose: 10 mg Documented by: Atorvastatin Calcium (Lipitor) 80 mg PO QPM AMNA Stop: 07/13/19 20:59 Last Admin: 06/13/19 21:03 Dose: 80 mg Documented by: Cyclobenzaprine HCl (Flexeril) 10 mg PO BID PRN PRN Reason: Muscle Spasm Stop: 07/13/19 14:47 Dextrose (Dextrose 50%) 25 - 50 ml IV UD PRN; Protocol PRN Reason: Hypoglycemia Protocol Stop: 07/13/19 14:47 Fish Oil ([place]-3 (Purified Fish Oil)) 1 gm PO QAM AMNA Stop: 07/14/19 08:59 Last Admin: 06/14/19 07:50 Dose: 1 gm Documented by: Gabapentin (Neurontin) 400 mg PO QPM AMNA Stop: 07/13/19 20:59 Last Admin: 06/13/19 21:03 Dose: 400 mg Documented by: Glucagon (Glucagen) 1 mg SQ UD PRN; Protocol PRN Reason: Hypoglycemia Protocol Stop: 07/13/19 14:47 Glucose (Glucose 40%) 15 - 30 gm PO UD PRN; Protocol PRN Reason: Hypoglycemia Protocol Stop: 07/13/19 14:47 Glucose (Dex4 Glucose) 4 - 8 tabs PO UD PRN; Protocol PRN Reason: Hypoglycemia Protocol Stop: 07/13/19 14:47 Lactated Ringer's (Lr) 1,000 mls @ 100 mls/hr IV .Q10H AMNA Stop: 07/13/19 21:44 Last Admin: 06/14/19 13:09 Dose: 100 mls/hr Documented by: Promethazine HCl 25 mg/ Sodium (Chloride) 51 mls @ 204 mls/hr IV Q6H PRN PRN Reason: Nausea And Vomiting Stop: 07/13/19 21:54 Pantoprazole Sodium 40 mg/ (Syringe) 10 mls @ 5 mls/min IV BID@0900,2100 [facility] Stop: 06/15/19 21:01 Last Admin: 06/14/19 07:48 Dose: 5 mls/min Documented by: Insulin Aspart (Novolog Flexpen) 0 units SC Q6 AMNA Stop: 07/13/19 17:59 Last Admin: 06/14/19 11:31 Dose: Not Given Documented by: Lisinopril (Zestril) 10 mg PO QAM AMNA Stop: 07/14/19 08:59 Last Admin: 06/14/19 07:49 Dose: 10 mg Documented by: Magnesium Hydroxide (Milk Of Magnesia) 30 ml PO Q12H PRN PRN Reason: Constipation Stop: 07/13/19 14:47 Miscellaneous (Carbohydrates For Hypoglycemia) 15 - 30 gm PO UD PRN PRN Reason: Hypoglycemia Treatment Stop: 07/13/19 14:47 Miscellaneous Information (Consult Glycemic Management Pharmacy) 1 ea N/A UD PRN; Protocol PRN Reason: Consult Stop: 07/13/19 15:15 Ondansetron HCl (Zofran) 4 mg IV Q4H PRN PRN Reason: Nausea Stop: 07/13/19 21:40 Oxycodone HCl (Roxicodone Immediate Rel) 5 - 10 mg PO Q4 PRN PRN Reason: Pain Stop: 06/28/19 08:55 Last Admin: 06/14/19 15:12 Dose: 5 mg Documented by: Pantoprazole Sodium (Protonix) 40 mg PO BIDM [facility] Stop: 07/13/19 16:59 Last Admin: 06/13/19 15:59 Dose: 40 mg Documented by: Polyethylene Glycol (Miralax Powder Packet) 17 gm PO DAILY PRN PRN Reason: Constipation Stop: 07/13/19 14:47 Prednisone (Prednisone) 10 mg PO DAILY [facility] Stop: 06/15/19 09:01 Last Admin: 06/14/19 07:50 Dose: 10 mg Documented by: Propranolol HCl (Inderal) 40 mg PO BID [facility] Stop: 07/13/19 20:59 Last Admin: 06/14/19 07:48 Dose: 40 mg Documented by: Venlafaxine HCl (Effexor Extended Release) 150 mg PO QAM [facility] Stop: 07/14/19 08:59 Last Admin: 06/14/19 07:50 Dose: 150 mg Documented by: Zolpidem Tartrate (Ambien) 5 mg PO HS PRN PRN Reason: Sleep Stop: 07/13/19 14:47 PG Care Time/CCT Total # of Minutes Spent Total Time Spent with Patient: Total time spent is greater than 50% in coordination of care (as documented) at patient's floor/unit and/or counseling patient: (1) Pancreatitis, acute Acute pancreatitis complication: unspecified Pancreatitis type: unspecified pancreatitis type Qualified Code(s): K85.90 - Acute pancreatitis without necrosis or infection, unspecified
[2019-06-14] MEDS: ATORVASTATIN 40 MG TAB PO SCH (20:58)
[2019-06-14] MEDS: GABAPENTIN 400 MG CAP PO SCH (20:58)
[2019-06-14 21:59] LABS: Basophils # (auto) 0.01 K/uL (0-0.2); Basophils % (auto) 0.1 %; Eosinophils # (auto) 0.01 K/uL (0-0.5); Eosinophils % (auto) 0.1 %; Hematocrit (blood only) 39.8 % (42-52); Hemoglobin 13.4 g/dL (14.0-18.0); Immature Granulocytes # (auto) 0.13 K/uL (0.00-0.02); Immature Granulocytes % (auto) 0.7 %; Lymphocytes # (auto) 2.51 K/uL (1.2-3.4); Mean Corpuscular Hemoglobin 29.4 pg (25-34); Mean Corpuscular Hgb Conc 33.7 g/dL (32-36); Mean Corpuscular Volume 87.3 fL (80-100); Mean Platelet Volume 10.4 fL (7.4-10.4); Monocytes # (auto) 1.75 K/uL (0.11-0.59); Monocytes % (auto) 9.8 %; Neutrophils # (auto) 13.52 K/uL (1.4-6.5); Neutrophils % (auto) 75.3 %; Platelet Count 203 K/uL (130-400); RDW Coefficient of Variation 16.4 % (11.5-14.5); Red Blood Count 4.56 M/uL (4.7-6.1); White Blood Count 17.93 K/uL (4.8-10.8)
[2019-06-14 22:17] LABS: Albumin Level 2.4 gm/dl (3.4-5.0); BUN Creatinine Ratio 24.4 (10-20); Calcium 8.4 mg/dl (8.5-10.1); Creatinine Clr Calc Pharmacy 92.4 ml/min; Est GFR (African American) 106.9; Est GFR (Non-African American) 92.2; Potassium 3.9 mmol/L (3.5-5.1)
[2019-06-14 22:20] LABS: Albumin Globulin Ratio 0.5 (0.9-2); Bilirubin,Total 1.4 mg/dl (0.2-1); Globulin 4.6 gm/dl (2.5-4.0)
[2019-06-15] MEDS: INSULIN ASPART 100 UNITS/ML 3 ML PEN SC SCH ×5 (00:10→21:01)
[2019-06-15] MEDS ORDERED: D5W AND LACTATED RINGERS 1,000 ML IV SCH (04:00)
[2019-06-15 06:03] LABS: Basophils # (auto) 0.01 K/uL (0-0.2); Basophils % (auto) 0.1 %; Hemoglobin 13.7 g/dL (14.0-18.0); Immature Granulocytes # (auto) 0.05 K/uL (0.00-0.02); Immature Granulocytes % (auto) 0.3 %; Lymphocytes # (auto) 2.39 K/uL (1.2-3.4); Lymphocytes % (auto) 16.1 %; Mean Corpuscular Hemoglobin 29.9 pg (25-34); Mean Corpuscular Hgb Conc 34.3 g/dL (32-36); Mean Corpuscular Volume 87.3 fL (80-100); Mean Platelet Volume 10.6 fL (7.4-10.4); Monocytes # (auto) 1.31 K/uL (0.11-0.59); Monocytes % (auto) 8.9 %; Neutrophils # (auto) 11.04 K/uL (1.4-6.5); Neutrophils % (auto) 74.6 %; Platelet Count 189 K/uL (130-400); RDW Coefficient of Variation 16.5 % (11.5-14.5); RDW Standard Deviation 52.6 fL (36.4-46.3); Red Blood Count 4.58 M/uL (4.7-6.1)
[2019-06-15 06:28] LABS: INR 1.3 (0.9-1.1); Prothrombin Time 13.1 Seconds (9.0-12.0)
[2019-06-15 06:31] LABS: Albumin Level 2.3 gm/dl (3.4-5.0); BUN Creatinine Ratio 25.9 (10-20); Calcium 8.1 mg/dl (8.5-10.1); Creatinine Clr Calc Pharmacy 96.6 ml/min; Est GFR (African American) 108.8; Est GFR (Non-African American) 93.9; Potassium 3.7 mmol/L (3.5-5.1)
[2019-06-15 06:34] LABS: Albumin Globulin Ratio 0.5 (0.9-2); Bilirubin,Total 1.5 mg/dl (0.2-1); Globulin 4.3 gm/dl (2.5-4.0); Total Protein 6.6 gm/dl (6.4-8.2)
[2019-06-15] MEDS: AMLODIPINE BESYLATE 5 MG TAB PO SCH (08:33)
[2019-06-15] MEDS: predniSONE 10 MG TABLET PO SCH (08:33)
[2019-06-15] MEDS: OMEGA-3 (PURIFIED FISH OIL) 1 GM CAP PO SCH (08:33)
[2019-06-15] MEDS: PROPRANOLOL HCL 20 MG TAB PO SCH ×2 (08:33→20:55)
[2019-06-15] MEDS: LISINOPRIL 10 MG TAB PO SCH (08:33)
[2019-06-15] MEDS: PANTOprazole 40 MG in SYRINGE 0 ML IV SCH ×2 (08:33→20:54)
[2019-06-15] MEDS: VENLAFAXINE HCL XR 150 MG CAPXR PO SCH (08:33)
[2019-06-15] MEDS: LACTATED RINGER'S 1,000 ML IV SCH ×2 (09:44→22:15)
[2019-06-15] MEDS ORDERED: Nursing to Pharmacy Communication ONE (09:47)
--- NOTE | 2019-06-15 10:24 | Gastroenterology Progress Note ---
Date of Service June 15, 2019 Assessment & Plan (1) Pancreatitis, acute: (2) Laennec's cirrhosis (alcoholic): 1. Continue supportive care. 2. If tolerating full liquids, consider further advancement to a soft, low residue, low fat diet over the next 24 hours as tolerated. 3. Recommend outpatient autoantibody testing as ordered by Dr. Nava previously. 4. Reinforced strict ETOH avoidance upon discharge. Supervising Physician Co-Signing Physician Notes Agree with IRISH Andrade as above Abd: Soft, NT, less distended Continue current therapy and supportive care Advance diet as tolerated Subjective Patient reports improved abdominal pain which he rates as 4/10 at present. No vomiting. Improved nausea which waxes and wanes. Diet advanced to full liquids. Amylase and lipase reviewed and trending down. He is otherwise without any complaints. Review of Systems Constitutional: no fever and no chills Respiratory: no problem reported Cardiovascular: no problem reported Gastrointestinal: as per Subjective / HPI Physical Exam Constitutional: WD/WN, vitals as above Respiratory: normal respiratory effort, lungs clear to auscultation Cardiovascular: Rate/Rhythm: regular rate and regular rhythm Heart Sounds: + murmur Gastrointestinal (Abdomen): Inspection/Auscultation: normal bowel sounds Percussion/Palpation: abdomen soft; abdomen nontender Psychiatric: A+Ox3, euthymic affect Results & Data Vital Signs (Past 12 Hours) Vital Signs Temp Pulse Pulse Resp BP BP Pulse Ox 06/15/19 06:58 36.9 C 87 16 128/79 93 06/14/19 23:23 36.8 C 78 16 132/80 91 Laboratory Results Abnormal lab results 06/14/19 06/14/19 06/14/19 Range/Units 13:53 13:53 21:52 WBC 19.68 H (4.8-10.8) K/uL RBC 4.54 L (4.7-6.1) M/uL Hgb 13.8 L (14.0-18.0) g/dL Hct 39.9 L (42-52) % RDW Std Deviation 52.5 H (36.4-46.3) fL RDW Coeff of Elliot 16.4 H (11.5-14.5) % MPV 10.6 H (7.4-10.4) fL Immature Gran # (Auto) 0.05 H (0.00-0.02) K/uL Neut # (Auto) 15.25 H (1.4-6.5) K/uL [place] # (Auto) 2.03 H (0.11-0.59) K/uL PT (9.0-12.0) Seconds INR (0.9-1.1) BUN/Creatinine Ratio 23.1 H 24.4 H (10-20) Glucose (70-99) mg/dl POC Glucose (70-99) Calcium 8.4 L (8.5-10.1) mg/dl Total Bilirubin 1.4 H 1.4 H (0.2-1) mg/dl AST 76 H 68 H (15-37) U/L Alkaline Phosphatase 409 H 380 H (45-117) U/L Albumin 2.5 L 2.4 L (3.4-5.0) gm/dl Globulin 4.4 H 4.6 H (2.5-4.0) gm/dl Albumin/Globulin Ratio 0.6 L 0.5 L (0.9-2) Amylase (25-115) U/L Lipase (73-393) U/L 06/14/19 06/15/19 06/15/19 Range/Units 21:52 05:40 05:40 WBC 17.93 H (4.8-10.8) K/uL RBC 4.56 L (4.7-6.1) M/uL Hgb 13.4 L (14.0-18.0) g/dL Hct 39.8 L (42-52) % RDW Std Deviation 52.0 H (36.4-46.3) fL RDW Coeff of [place] 16.4 H (11.5-14.5) % MPV (7.4-10.4) fL Immature Gran # (Auto) 0.13 H (0.00-0.02) K/uL Neut # (Auto) 13.52 H (1.4-6.5) K/uL [place] # (Auto) 1.75 H (0.11-0.59) K/uL PT 13.1 H (9.0-12.0) Seconds INR 1.3 H (0.9-1.1) BUN/Creatinine Ratio 25.9 H (10-20) Glucose 66 L (70-99) mg/dl POC Glucose (70-99) Calcium 8.1 L (8.5-10.1) mg/dl Total Bilirubin 1.5 H (0.2-1) mg/dl AST 62 H (15-37) U/L Alkaline Phosphatase 348 H (45-117) U/L Albumin 2.3 L (3.4-5.0) gm/dl Globulin 4.3 H (2.5-4.0) gm/dl Albumin/Globulin Ratio 0.5 L (0.9-2) Amylase 165 H (25-115) U/L Lipase 510 H (73-393) U/L 06/15/19 06/15/19 06/15/19 Range/Units 05:40 05:55 07:25 WBC 14.80 H (4.8-10.8) K/uL RBC 4.58 L (4.7-6.1) M/uL Hgb 13.7 L (14.0-18.0) g/dL Hct 40.0 L (42-52) % RDW Std Deviation 52.6 H (36.4-46.3) fL RDW Coeff of [place] 16.5 H (11.5-14.5) % MPV 10.6 H (7.4-10.4) fL Immature Gran # (Auto) 0.05 H (0.00-0.02) K/uL Neut # (Auto) 11.04 H (1.4-6.5) K/uL [place] # (Auto) 1.31 H (0.11-0.59) K/uL PT (9.0-12.0) Seconds INR (0.9-1.1) BUN/Creatinine Ratio (10-20) Glucose (70-99) mg/dl POC Glucose 69 L* 147 H (70-99) Calcium (8.5-10.1) mg/dl Total Bilirubin (0.2-1) mg/dl AST (15-37) U/L Alkaline Phosphatase (45-117) U/L Albumin (3.4-5.0) gm/dl Globulin (2.5-4.0) gm/dl Albumin/Globulin Ratio (0.9-2) Amylase (25-115) U/L Lipase (73-393) U/L PG Care Time/CCT Total # of Minutes Spent Total Time Spent with Patient: Total time spent is greater than 50% in coordination of care (as documented) at patient's floor/unit and/or counseling patient: (1) Pancreatitis, acute Acute pancreatitis complication: unspecified Pancreatitis type: unspecified pancreatitis type Qualified Code(s): K85.90 - Acute pancreatitis without necrosis or infection, unspecified
[2019-06-15 13:53] LABS: AFP Tumor Marker Serum 6.3 NG/ML (<6.1); Hepatitis A Antibody IgM NON-REACTIVE (NON-REACTIVE); Hepatitis B Core Antibody IgM NON-REACTIVE (NON-REACTIVE)
--- NOTE | 2019-06-15 15:25 | Hospitalist Progress Note ---
Date of Service June 15, 2019 Assessment & Plan (1) Pancreatitis, acute: continue aggressive IV fluids at 100cc/hr tolerating full liquids, advance to low residue this evening lipase trending down to 510 today likely due to alcohol, no gall stones seen on MRCP and biliary ducts not dilated GI following, appreciate their input likely d/c home tomorrow (2) Chronic pain: Continue pain medicine as above (3) Anemia: Hb stable at 13.7 (4) Liver cirrhosis, alcoholic: patient needs to stop drinking but he has no interest in doing such follows with GI, they have discussed sobriety many times (5) Diabetes mellitus: AC&HS Glycemic control per pharmacy monitor for hypoglycemia (6) Depression: Stable, Venlafaxine 150 mg PO Subjective patient feeling better, no abdominal pain, tolerating liquid diet no fever, no chest pain, no dyspnea reviewed labs, lipase down to 510, ALT, AST, alk phos and bili all going down WBC down to 14k discussed with GI, okay to advance diet if he tolerates Review of Systems Review of Systems: All systems reviewed & are unremarkable except as noted in HPI & below Physical Exam Constitutional: WD/WN, vitals as above Eyes: PERRL, conjunctivae normal, anicteric sclerae ENMT: external ear and nose normal, oropharynx normal Neck: trachea midline, no thyromegaly Respiratory: normal respiratory effort, lungs clear to auscultation Cardiovascular: RRR, no murmur, no edema Gastrointestinal (Abdomen): Inspection/Auscultation: abdomen normal to inspection; abdomen not distended Percussion/Palpation: abdomen soft and + hepatomegaly; abdomen nontender (epigastric), no guarding and abdomen not rigid Musculoskeletal: no cyanosis or clubbing, extremities motor strength 5/5 Skin: no rashes, warm and dry Neurologic: patellar DTR's 2+ bilat, sensation intact and PERRL, EOMI, accommodation nl, no face palsy, no dysarthria Psychiatric: A+Ox3, euthymic affect Lymphatic: no cervical or axillary lymphadenopathy Results & Data Vital Signs (Past 12 Hours) Vital Signs Temp Pulse Resp BP BP Pulse Ox 06/15/19 15:19 36.4 C L 72 20 107/67 91 06/15/19 06:58 36.9 C 87 16 128/79 93 Laboratory Results Laboratory Results - last 24 hr 06/14/19 06/14/19 06/14/19 06:32 18:25 21:52 WBC RBC Hgb Hct MCV MCH MCHC RDW Std Deviation RDW Coeff of Elliot Plt Count MPV Immature Gran % (Auto) Neut % (Auto) Lymph % (Auto) [place] % (Auto) Eos % (Auto) Baso % (Auto) Immature Gran # (Auto) Neut # (Auto) Lymph # (Auto) [place] # (Auto) Eos # (Auto) Baso # (Auto) PT INR Sodium 137 Potassium 3.9 Chloride 102 Carbon Dioxide 28 Anion Gap 7.0 BUN 17 Creatinine 0.69 Est Cr Clr Drug Dosing 92.4 Est GFR ( Amer) 106.9 Est GFR (Non-Af Amer) 92.2 BUN/Creatinine Ratio 24.4 H Glucose 78 POC Glucose 74 Calcium 8.4 L Total Bilirubin 1.4 H AST 68 H ALT 63 Alkaline Phosphatase 380 H Total Protein 7.0 Albumin 2.4 L Globulin 4.6 H Albumin/Globulin Ratio 0.5 L Amylase Lipase Tumor Marker AFP 6.3 H Hepatitis A IgM Ab NON-REACTIVE Hep B Core IgM Ab NON-REACTIVE 06/14/19 06/15/19 06/15/19 21:52 00:01 05:40 WBC 17.93 H RBC 4.56 L Hgb 13.4 L Hct 39.8 L MCV 87.3 MCH 29.4 MCHC 33.7 RDW Std Deviation 52.0 H RDW Coeff of Elliot 16.4 H Plt Count 203 MPV 10.4 Immature Gran % (Auto) 0.7 Neut % (Auto) 75.3 Lymph % (Auto) 14.0 [place] % (Auto) 9.8 Eos % (Auto) 0.1 Baso % (Auto) 0.1 Immature Gran # (Auto) 0.13 H Neut # (Auto) 13.52 H Lymph # (Auto) 2.51 [place] # (Auto) 1.75 H Eos # (Auto) 0.01 Baso # (Auto) 0.01 PT 13.1 H INR 1.3 H Sodium Potassium Chloride Carbon Dioxide Anion Gap BUN Creatinine Est Cr Clr Drug Dosing Est GFR ( Amer) Est GFR (Non-Af Amer) BUN/Creatinine Ratio Glucose POC Glucose 71 Calcium Total Bilirubin AST ALT Alkaline Phosphatase Total Protein Albumin Globulin Albumin/Globulin Ratio Amylase Lipase Tumor Marker AFP Hepatitis A IgM Ab Hep B Core IgM Ab 06/15/19 06/15/19 06/15/19 05:40 05:40 05:55 WBC 14.80 H RBC 4.58 L Hgb 13.7 L Hct 40.0 L MCV 87.3 MCH 29.9 MCHC 34.3 RDW Std Deviation 52.6 H RDW Coeff of Elliot 16.5 H Plt Count 189 MPV 10.6 H Immature Gran % (Auto) 0.3 Neut % (Auto) 74.6 Lymph % (Auto) 16.1 [place] % (Auto) 8.9 Eos % (Auto) 0.0 Baso % (Auto) 0.1 Immature Gran # (Auto) 0.05 H Neut # (Auto) 11.04 H Lymph # (Auto) 2.39 [place] # (Auto) 1.31 H Eos # (Auto) 0.00 Baso # (Auto) 0.01 PT INR Sodium 137 Potassium 3.7 Chloride 102 Carbon Dioxide 29 Anion Gap 6.0 BUN 17 Creatinine 0.66 Est Cr Clr Drug Dosing 96.6 Est GFR ( Amer) 108.8 Est GFR (Non-Af Amer) 93.9 BUN/Creatinine Ratio 25.9 H Glucose 66 L POC Glucose 69 L* Calcium 8.1 L Total Bilirubin 1.5 H AST 62 H ALT 54 Alkaline Phosphatase 348 H Total Protein 6.6 Albumin 2.3 L Globulin 4.3 H Albumin/Globulin Ratio 0.5 L Amylase 165 H Lipase 510 H Tumor Marker AFP Hepatitis A IgM Ab Hep B Core IgM Ab 06/15/19 06/15/19 06/15/19 06:20 07:25 12:22 WBC RBC Hgb Hct MCV MCH MCHC RDW Std Deviation RDW Coeff of Elliot Plt Count MPV Immature Gran % (Auto) Neut % (Auto) Lymph % (Auto) [place] % (Auto) Eos % (Auto) Baso % (Auto) Immature Gran # (Auto) Neut # (Auto) Lymph # (Auto) [place] # (Auto) Eos # (Auto) Baso # (Auto) PT INR Sodium Potassium Chloride Carbon Dioxide Anion Gap BUN Creatinine Est Cr Clr Drug Dosing Est GFR ( Amer) Est GFR (Non-Af Amer) BUN/Creatinine Ratio Glucose POC Glucose 79 147 H 194 H Calcium Total Bilirubin AST ALT Alkaline Phosphatase Total Protein Albumin Globulin Albumin/Globulin Ratio Amylase Lipase Tumor Marker AFP Hepatitis A IgM Ab Hep B Core IgM Ab Medications Administered Current Inpatient Medications Al Hydrox/Mg Hydrox/Simethicone (Maalox) 15 ml PO Q4H PRN PRN Reason: Dyspepsia Stop: 07/13/19 14:47 Amlodipine Besylate (Norvasc) 10 mg PO QAM AMNA Stop: 07/13/19 14:47 Last Admin: 06/15/19 08:33 Dose: 10 mg Documented by: Atorvastatin Calcium (Lipitor) 80 mg PO QPM AMNA Stop: 07/13/19 20:59 Last Admin: 06/14/19 20:58 Dose: 80 mg Documented by: Cyclobenzaprine HCl (Flexeril) 10 mg PO BID PRN PRN Reason: Muscle Spasm Stop: 07/13/19 14:47 Last Admin: 06/14/19 18:07 Dose: 10 mg Documented by: Dextrose (Dextrose 50%) 25 - 50 ml IV UD PRN; Protocol PRN Reason: Hypoglycemia Protocol Stop: 07/13/19 14:47 Fish Oil ([place]-3 (Purified Fish Oil)) 1 gm PO QAM AMNA Stop: 07/14/19 08:59 Last Admin: 06/15/19 08:33 Dose: 1 gm Documented by: Gabapentin (Neurontin) 400 mg PO QPM AMNA Stop: 07/13/19 20:59 Last Admin: 06/14/19 20:58 Dose: 400 mg Documented by: Glucagon (Glucagen) 1 mg SQ UD PRN; Protocol PRN Reason: Hypoglycemia Protocol Stop: 07/13/19 14:47 Glucose (Glucose 40%) 15 - 30 gm PO UD PRN; Protocol PRN Reason: Hypoglycemia Protocol Stop: 07/13/19 14:47 Last Admin: 06/15/19 06:04 Dose: 15 gm Documented by: Glucose (Dex4 Glucose) 4 - 8 tabs PO UD PRN; Protocol PRN Reason: Hypoglycemia Protocol Stop: 07/13/19 14:47 Lactated Ringer's (Lr) 1,000 mls @ 100 mls/hr IV .Q10H AMNA Stop: 07/13/19 21:44 Last Admin: 06/15/19 09:44 Dose: 100 mls/hr Documented by: Promethazine HCl 25 mg/ Sodium (Chloride) 51 mls @ 204 mls/hr IV Q6H PRN PRN Reason: Nausea And Vomiting Stop: 07/13/19 21:54 Pantoprazole Sodium 40 mg/ (Syringe) 10 mls @ 5 mls/min IV BID@0900,2100 [facility] Stop: 06/15/19 21:01 Last Admin: 06/15/19 08:33 Dose: 5 mls/min Documented by: Insulin Aspart (Novolog Flexpen) 0 units SC ACHS [facility] Stop: 07/15/19 11:29 Last Admin: 06/15/19 13:06 Dose: 10 units Documented by: Lisinopril (Zestril) 10 mg PO QAM [facility] Stop: 07/14/19 08:59 Last Admin: 06/15/19 08:33 Dose: 10 mg Documented by: Magnesium Hydroxide (Milk Of Magnesia) 30 ml PO Q12H PRN PRN Reason: Constipation Stop: 07/13/19 14:47 Miscellaneous (Carbohydrates For Hypoglycemia) 15 - 30 gm PO UD PRN PRN Reason: Hypoglycemia Treatment Stop: 07/13/19 14:47 Miscellaneous Information (Consult Glycemic Management Pharmacy) 1 ea N/A UD PRN; Protocol PRN Reason: Consult Stop: 07/13/19 15:15 Ondansetron HCl (Zofran) 4 mg IV Q4H PRN PRN Reason: Nausea Stop: 07/13/19 21:40 Oxycodone HCl (Roxicodone Immediate Rel) 5 - 10 mg PO Q4 PRN PRN Reason: Pain Stop: 06/28/19 08:55 Last Admin: 06/14/19 15:12 Dose: 5 mg Documented by: Pantoprazole Sodium (Protonix) 40 mg PO BIDM [facility] Stop: 07/13/19 16:59 Last Admin: 06/13/19 15:59 Dose: 40 mg Documented by: Polyethylene Glycol (Miralax Powder Packet) 17 gm PO DAILY PRN PRN Reason: Constipation Stop: 07/13/19 14:47 Propranolol HCl (Inderal) 40 mg PO BID [facility] Stop: 07/13/19 20:59 Last Admin: 06/15/19 08:33 Dose: 40 mg Documented by: Venlafaxine HCl (Effexor Extended Release) 150 mg PO QAM [facility] Stop: 07/14/19 08:59 Last Admin: 06/15/19 08:33 Dose: 150 mg Documented by: Zolpidem Tartrate (Ambien) 5 mg PO HS PRN PRN Reason: Sleep Stop: 07/13/19 14:47 PG Care Time/CCT Total # of Minutes Spent Total Time Spent with Patient: Total time spent is greater than 50% in coordination of care (as documented) at patient's floor/unit and/or counseling patient: (1) Pancreatitis, acute Acute pancreatitis complication: unspecified Pancreatitis type: unspecified pancreatitis type Qualified Code(s): K85.90 - Acute pancreatitis without necrosis or infection, unspecified
--- NOTE | 2019-06-15 15:37 | Pharmacy Report ---
Pharmacy Glycemic Short Note 2 - Date of Service June 15, 2019 - Glycemic Short BSG Results (Last 24 hours): 06/14/19 06/14/19 06/15/19 18:25 21:52 00:01 Glucose 78 POC Glucose 74 71 06/15/19 06/15/19 06/15/19 05:40 05:55 06:20 Glucose 66 L POC Glucose 69 L* 79 06/15/19 06/15/19 07:25 12:22 Glucose POC Glucose 147 H 194 H OUTPATIENT ANTIDIABETIC REGIMEN: * Metformin 1000 mg BID * A1c = 5.4 % [06/14/19] Risk Factors for Insulin Resistance: * Steroids: Prednisone 10 mg * advanced to full liquid diet Assessment & Plan: ASSESSMENT: * 78 y/o M with history of Type 2 Diabetes admitted for Pancreatitis. He is currently on prednisone 10 mg po daily. * Patient was managed on Metformin on at home. A1c indicated excellent glycemic control. * Oral agents are not recommended for inpatient use d/t drug interactions, changing PO intake, and difficulty titrating for acute hyper/hypoglycemia. ADA recommends re-initiating outpatient oral agents 1-2 days prior to discharge when appropriate if they were held on admission. * Will hold oral agents for admission and utilize SQ basal bolus insulin regimen which is the recommended regimen for inpatient glycemic control. * Majority of BSGs have been below goal over the past 24 hours despite patient receiving no insulin on 06/14. Last dose of Lantus was 9/3 PM. * Diet has been advanced to full liquids. Of note, pt was on D5LR @100 ml/hr for about 4 hours this morning. This is likely the cause of elevated lunch BSG. If BSG is persistently > 180 mg/dL basal insulin will be resumed and Novolog parameters will be tightened. PLAN FOR INPATIENT GLYCEMIC CONTROL: * Holding outpatient oral diabetes medications * Bolus insulin * NovoLog per scale ACHS or Q6hrs while NPO * Goal Range: Low 110 mg/dL - High 140 mg/dL * Correction Factor: 25 mg/dL/unit * Nutritional / Prandial insulin per carb ratio of 1 unit per 8 grams CHO consumed PLAN FOR DISCHARGE: * A1c of 5.4% indicates excellent outpatient glycemic control * Continue home regimen of metformin as long as patient does not experience frequent hypoglycemia
[2019-06-15] MEDS: GABAPENTIN 400 MG CAP PO SCH (20:54)
[2019-06-15] MEDS: ATORVASTATIN 40 MG TAB PO SCH (20:55)
[2019-06-16] MEDS: LACTATED RINGER'S 1,000 ML IV SCH (06:59)
[2019-06-16 08:16] LABS: INR 1.3 (0.9-1.1); Prothrombin Time 12.7 Seconds (9.0-12.0)
[2019-06-16 08:28] LABS: Creatinine Clr Calc Pharmacy 92.4 ml/min; Est GFR (African American) 106.9; Est GFR (Non-African American) 92.2
[2019-06-16] MEDS: AMLODIPINE BESYLATE 5 MG TAB PO SCH (08:46)
[2019-06-16] MEDS: PROPRANOLOL HCL 20 MG TAB PO SCH (08:46)
[2019-06-16] MEDS: OMEGA-3 (PURIFIED FISH OIL) 1 GM CAP PO SCH (08:46)
[2019-06-16] MEDS: LISINOPRIL 10 MG TAB PO SCH (08:46)
[2019-06-16] MEDS: VENLAFAXINE HCL XR 150 MG CAPXR PO SCH (08:46)
[2019-06-16] MEDS: INSULIN ASPART 100 UNITS/ML 3 ML PEN SC SCH ×2 (08:47→12:48)
--- NOTE | 2019-06-19 08:20 | Discharge Summary ---
Date of Service June 16, 2019 Admission HPI Per Admitting Provider Patient is a 78 years old male with past medical history of hypertension, prostate cancer diabetes mellitus type 2, GERD, alcohol induced pancreatitis, liver cirrhosis, who presents to the emergency room with fatigue weakness for 1 day followed by upper abdominal pain with radiation to his back and mild nausea and vomiting. Patient denies alcohol consumption at this time. He said nothing relieves his abdominal pain. Patient said that he cannot keep anything down. Patient denies fever chills chest pain shortness of breath hemoptysis hematuria melena dysuria red blood in the stool or bleeding bruising and ecchymosis. Labs reviewed: Sodium 135, potassium 3.9 chloride 100, anion gap 8 BUN 10, creatinine 0.79 GFR 87, glucose 184, troponin 0 0.015, Albumin 2.9, lipase 3568, AST 155, ALT 90, alkaline phosphatase 502, bilirubin 0.9 calcium 8.8. PT/INR pending. MRCP unremarkable appearance of the gallbladder without evidence of biliary ductal dilatation or choledocholithiasis. Chronic morphology of the liver with hepatosplenomegaly. Suggestion of acute pancreatitis. Small volume of abdominal pelvic ascites. Gastroesophageal varices. The case was discussed with [facility] and he will be they will evaluate patient today. Was made to admit patient to PCU with telemetry for acute pancreatitis, pain management and further evaluation. Principal Diagnosis Acute alcohol pancreatitis Discharge Exam Constitutional WD/WN, vitals as above Eyes PERRL, conjunctivae normal, anicteric sclerae ENMT external ear and nose normal, oropharynx normal Neck trachea midline, no thyromegaly Respiratory normal respiratory effort, lungs clear to auscultation Cardiovascular RRR, no murmur, no edema Gastrointestinal (Abdomen) Inspection/Auscultation: abdomen normal to inspection; abdomen not distended Percussion/Palpation: abdomen soft and + hepatomegaly; abdomen nontender (epigastric), no guarding and abdomen not rigid Musculoskeletal no cyanosis or clubbing, extremities motor strength 5/5 Skin no rashes, warm and dry Neurologic patellar DTR's 2+ bilat, sensation intact and PERRL, EOMI, accommodation nl, no face palsy, no dysarthria Psychiatric A+Ox3, euthymic affect Lymphatic no cervical or axillary lymphadenopathy Discharge Data Allergies Allergy/AdvReac Type Severity Reaction Status Date / Time No Known Drug Allergies Allergy Unknown . Verified 06/13/19 10:58 Consultations 06/13/19 12:04 ED Decision to Admit Stat 06/13/19 14:48 Consult Gastroenterology Routine 06/13/19 15:45 Consult Pain Management Routine Ordered Studies 06/13/19 10:31 CT abd pelvis IV con only Stat US abdomen limited Stat 06/13/19 14:01 MR MRCP Stat Hospital Course (1) Pancreatitis, acute: treated with IV fluids at 100cc/hr tolerated full liquids, advanced to low residue diet and tolerated this as well lipase trending down to 510 on 06/15 likely due to alcohol, no gall stones seen on MRCP and biliary ducts not dilated GI following, appreciate their input d/c home (2) Chronic pain: Continue pain medicine as above (3) Anemia: Hb stable at 13 (4) Liver cirrhosis, alcoholic: patient needs to stop drinking but he has no interest in doing such follows with GI, they have discussed sobriety many times again, discussed with patient the importance of sobriety at the time of discharge (5) Diabetes mellitus: AC&HS Glycemic control per pharmacy monitor for hypoglycemia, no episodes (6) Depression: Stable, Venlafaxine 150 mg PO Total Time Total Time Spent Total Time Spent (In Minutes): 31 minutes Total Time Includes: Examination of the Patient, Discharge Planning, Medication Reconciliation and Communication With Other Providers ([facility]) Discharge Plan Discharge Items Patient Disposition: Home - Self-Care Reason For Visit: ABDOMINAL PAIN WITH CHOLANGITIS Discharge Diagnosis: Acute pancreatitis due to alcohol Cirrhosis due to alcohol Condition: Good Discharge Goals: Improve disease control and Improve function Activity: Resume your previous activity Non-emergency contact: Primary Care Provider and Fire Lieutenant Call non-emergency contact if: you have any medication questions, your symptoms worsen, your pain is not controlled and you have a fever Follow-up/Referrals: Karley Branch, [Primary Care Provider] - 06/22/19 9:30 am (Please, follow up at Dr. Branch's office with her associate, Carly COBURN, on June 22 at 9:30 am. *If you need to change this appointment, call the office at [phone].) Diet: Carb Consistent or DM2 Addtl Provider Instructions: Medications: no changes Acute pancreatitis due to alcohol abuse pancreatitis is resolved at this time, lipase down to normal, no pain, eating well MRI of the liver/pancreas showed no gall stones, no signs of infection of the gall bladder or biliary system, it again showed cirrhosis you need to refrain from drinking alcohol any further alcohol could flare up the pancreas and bring you back to the hospital also, if you continue to drink you do further damage to your liver which is irreversible Cirrhosis: Dr. Nava wants you to follow up for autoantibody testing as he previously ordered FOLLOW UP - Dr. Branch in one week - [facility] Andrade, gastroenterology, in one month Prescriptions: Continued lisinopril 20 mg tablet 10 mg PO QAM RF: 0 amlodipine 10 mg tablet 10 mg PO QAM Qty: 30 RF: 0 cyclobenzaprine 10 mg tablet 10 mg PO BID PRN (Reason: Muscle Spasm) Qty: 60 RF: 0 propranolol 40 mg tablet 40 mg PO BID 30 Days Qty: 60 RF: 0 venlafaxine 150 mg capsule,extended release 24hr 150 mg PO QAM Qty: 30 RF: 0 gabapentin 400 mg capsule 400 mg PO QPM RF: 0 atorvastatin 80 mg tablet 80 mg PO QPM RF: 0 prednisone 10 mg tablet 1 mg PO UD RF: 0 omega-3 fatty acids [Fish Oil Concentrate] 1,000 mg capsule 1,000 mg PO QAM RF: 0 pantoprazole 40 mg tablet,delayed release (DR/EC) 40 mg PO BIDM RF: 0 metformin 1,000 mg tablet 1,000 mg PO BID RF: 0 hydrocodone-acetaminophen 10-325 mg Tablet 1 tab PO BID RF: 0 Discontinued cephalexin [Keflex] 500 mg capsule 500 mg PO TID 10 Days Qty: 30 RF: 0 Stand-Alone Forms: [facility] Discharge Orders: Discharge Order (Routine); Ordered 06/16/19 Ordered By: Duane Banda Admission Data Admit Date/Time: 06/13/19 14:01 Attending Provider: Duane Banda Admit Provider: Meredith Franklin Primary Care Provider: Karley Branch Other Providers: Meredith Franklin ; Mynor Rizzo ; Amy Jones Service: Medical Other Interventions: Discharge Summary Assessment (RN) Last Done: 06/16/19 10:53 DC Date/Time DO NOT enter until pt leaves facility: 06/16/19 15:34
== END 2019-06-16 15:34 | disposition home or self-care (01) | DRG 440 ==
LOC: ED 10:10 → 2S 14:01 → SUATTDRO 14:01 → 2S 14:20 → 3W 06-14 12:52

== ENCOUNTER 2019-08-08 18:14 | Inpatient (IN) ==
[2019-08-08] MEDS ORDERED: KETOROLAC TROMETHAMINE 15 MG/ML VIAL IV STA (18:51)
[2019-08-08] MEDS: SODIUM CHLORIDE 0.9% 1000ML 1,000 ML IV SCH (19:10)
[2019-08-08 19:21] LABS: Basophils # (auto) 0.02 K/uL (0-0.2); Basophils % (auto) 0.4 %; Eosinophils # (auto) 0.08 K/uL (0-0.5); Eosinophils % (auto) 1.6 %; Hematocrit (blood only) 29.8 % (42-52); Hemoglobin 9.8 g/dL (14.0-18.0); Lymphocytes # (auto) 1.87 K/uL (1.2-3.4); Lymphocytes % (auto) 38.3 %; Mean Corpuscular Hemoglobin 28.2 pg (25-34); Mean Corpuscular Hgb Conc 32.9 g/dL (32-36); Mean Corpuscular Volume 85.9 fL (80-100); Mean Platelet Volume 9.7 fL (7.4-10.4); Monocytes # (auto) 0.32 K/uL (0.11-0.59); Monocytes % (auto) 6.6 %; Neutrophils # (auto) 2.59 K/uL (1.4-6.5); Neutrophils % (auto) 53.1 %; Platelet Count 146 K/uL (130-400); RDW Coefficient of Variation 15.4 % (11.5-14.5); RDW Standard Deviation 48.5 fL (36.4-46.3); Red Blood Count 3.47 M/uL (4.7-6.1); White Blood Count 4.88 K/uL (4.8-10.8)
[2019-08-08 19:31] LABS: INR 1.2 (0.9-1.1); Partial Thromboplastin Ratio 1.1; Partial Thromboplastin Time 29.1 Seconds (21.0-31.0); Prothrombin Time 12.3 Seconds (9.0-12.0)
[2019-08-08 19:40] LABS: Albumin Level 2.5 gm/dl (3.4-5.0); BUN Creatinine Ratio 9.4 (10-20); Bilirubin Direct 0.4 mg/dl (0-0.2); Calcium 8.3 mg/dl (8.5-10.1); Creatinine Clr Calc Pharmacy 92.7 ml/min; Est GFR (African American) 109.5; Est GFR (Non-African American) 94.4; Potassium 3.5 mmol/L (3.5-5.1)
[2019-08-08 19:43] LABS: Bilirubin,Total 0.6 mg/dl (0.2-1); Total Protein 6.8 gm/dl (6.4-8.2)
[2019-08-08] MEDS ORDERED: SODIUM CHLORIDE 0.9% 1000ML 1,000 ML IV ONE (19:44)
[2019-08-08] MEDS ORDERED: IOVERSOL 100ml IV PRN (20:12)
--- NOTE | 2019-08-08 20:31 | CT Scan Report ---
ABDOMEN AND PELVIS CT WITH IV CONTRAST CT DOSE: 753.29 mGycm HISTORY: Right lower quadrant pain. Hernia. TECHNIQUE: Multiaxial CT images of the abdomen and pelvis were performed following the use of intrave nous contrast. A dose lowering technique was utilized adhering to the principles of ALARA. COMPARISON STUDY: Abdomen and pelvis CT 06/13/2019. FINDINGS: The lung bases are essentially clear. No pneumoperitoneum. No pneumatosis. Posterior decomp ression within the lower lumbar spine. No suspicious lytic are blastic osseous lesions. The cirrhotic liver, splenomegaly, and a small amount of ascites is not significantly changed. Upper abdominal and paraesophageal varices persist. Normal bladder. The portal vein is patent. The gallbladder, kidneys, and adrenal glands unremarkable. Mildly enlarged periportal lymph nodes remain unchanged. Mild fulln ess and heterogeneous appearance to the tail of the pancreas. This raises the possibility of an under lying pancreatic lesion. This is also mild edema/inflammatory change surrounding the tail the pancrea s which could represent an associated pancreatitis. This is similar to the prior study. Stable 6 mm h ypodense lesion within the right hepatic lobe. This is technically too small to characterize. Promine nt mesenteric lymph nodes are also noted. Redemonstration of the high riding right testicle with asso ciated moderate hydrocele. Small fat and fluid containing right inguinal hernia. No bowel wall thicke clara or obstruction. Normal appendix. IMPRESSION: 1. There is again noted a high riding right testicle with a moderate hydrocele. This is similar to th e prior testicular ultrasound. 2. Small fat and fluid containing right inguinal hernia. 3. No bowel wall thickening or obstruction. 4. Normal appendix. 5. Cirrhotic liver with associated splenomegaly and a small amount of ascites, unchanged. 6. Heterogeneous pancreatic tail with surrounding peripancreatic edema. This is similar to the prior study and could be due to acute pancreatitis. However, an underlying pancreatic mass could also have a similar appearance. Dedicated pancreatic MRI is recommended once the possible pancreatitis is resol lizandro. Electronically signed by: Jose Barriga M.D. 08/08/2019 8:30 PM
--- NOTE | 2019-08-08 22:17 | Ultrasound Report ---
TESTICULAR ULTRASOUND HISTORY: R testicular pain COMPARISON: Abdomen and pelvis CT 08/08/2019. Testicular ultrasound 06/23/2019. FINDINGS: Right testis: 3.7 x 2.4 x 1.7 cm. There are no intratesticular masses. Normal color flow. Small hydro kervin. Mildly thickened epididymis without increased color flow. Left testis: 4.2 x 3.8 x 2.1 cm. There are no intratesticular masses. Normal color flow. No hydrocele . The epididymis is unremarkable. Miscellaneous: Small partially reducible fat-containing right inguinal hernia. IMPRESSION: 1. Normal bilateral testes. 2. Small right hydrocele. 3. Small partially reducible fat-containing right inguinal hernia. 3. Mildly thickened right epididymis. This could represent an epididymitis. Electronically signed by: Jose Barriga M.D. 08/08/2019 10:16 PM
[2019-08-08] MEDS ORDERED: cefTRIAXone SODIUM 1,000 MG/50 ML BAG IV STA (22:36)
[2019-08-08 23:23] LABS: Appearance Urine Clear (Clear); Bilirubin Urine Negative (Negative); Blood Urine Negative (Negative); Color Urine Yellow; Glucose Urine UA Negative (Negative); Ketones Urine Negative (Negative); Leukocyte Esterase Urine Negative (Negative); Nitrite Urine Negative (Negative); Protein Urine Negative (Negative); Specific Gravity Urine 1.016 (1.000-1.030); Urobilinogen Urine Negative (Negative)
[2019-08-08] MEDS: MoRPHine SULFATE 2 MG/ML CARP IV PRN (23:47)
[2019-08-09] MEDS ORDERED: GLUCOSE 10 TABS/TUBE PO PRN (00:19)
[2019-08-09] MEDS ORDERED: GLUCOSE 40% GEL 15 GM TUBE PO PRN (00:19)
[2019-08-09] MEDS ORDERED: CARBOHYDRATES FOR HYPOGLYCEMIA PO PRN (00:19)
[2019-08-09] MEDS ORDERED: GLUCAGON FOR INJ 1 MG VIAL SQ PRN (00:19)
[2019-08-09] MEDS ORDERED: ONDANSETRON INJ 2 MG/ML 2 ML VIAL IV PRN (00:19)
[2019-08-09] MEDS ORDERED: DEXTROSE 50% 50 ML SYRINGE IV PRN (00:19)
[2019-08-09] MEDS: SODIUM CHLORIDE 0.9% 1000ML 1,000 ML IV SCH ×2 (00:45→08:59)
--- NOTE | 2019-08-09 00:46 | Emergency Department Note ---
Entered by Enrico Rowley acting as a scribe for History of Present Illness General Chief complaint: Testicular Pain Stated complaint: RT TESTICULAR PAIN Time Seen by Provider: 08/08/19 18:41 Source: patient Limitations: no limitations History of Present Illness Onset (ago): day(s) (last night) Location: abdomen Severity: severe Pain Consistency: + constant Maximum Pain Intensity: 8 Quality: + constant Associated symptoms: no nausea/vomiting The patient is a 79 year old male who presents to the Emergency Room with complaints of constant abdominal pain starting last night. Pain is looking in the right lower quadrant. The patient states he had severe pain last night. He notes he had his prostate removed. The patient denies nausea, vomiting, constipation, fevers, and taking any blood thinners. Home Medications Home Medications Medication Instructions Recorded Confirmed Type hydrocodone-acetaminophen 1 tab PO AMHS 06/07/18 08/08/19 History propranolol 40 mg tablet 40 mg PO BID 30 Days #60 tab 03/08/19 08/08/19 Rx venlafaxine ER 150 mg 150 mg PO QAM #30 tab 03/08/19 08/08/19 Rx capsule,extended release 24 hr gabapentin 400 mg capsule 400 mg PO HS cap 06/09/19 08/08/19 History lisinopril 20 mg tablet 10 mg PO QAM tab 06/09/19 08/08/19 History atorvastatin 80 mg PO HS 06/13/19 08/08/19 History metformin 1,000 mg PO BID 06/13/19 08/08/19 History omega-3 fatty acids [Fish Oil 1,000 mg PO QAM 06/13/19 08/08/19 History Concentrate] pantoprazole 40 mg PO BID 06/13/19 08/08/19 History amlodipine 5 mg PO QAM 08/08/19 08/08/19 History venlafaxine 75 mg PO QAM 08/08/19 08/08/19 History Allergies Allergy/AdvReac Type Severity Reaction Status Date / Time No Known Allergies Allergy Verified 08/08/19 21:41 Past Med/Surg History Medical History Microscopic hematuria Hypertension Depression Diabetes mellitus, type 2 GERD (gastroesophageal reflux disease) Chronic back pain CHRONIC NECK PAIN, NORMAL ROM History of prostate cancer s/p prostatectomy in 1998, no chemo/no radiation Liver cirrhosis, alcoholic Lumbar disc herniation Gastric polyps Hiatal hernia Anemia Arthritis Cervical spondylosis without myelopathy Chronic gastric ulcer Esophageal varices Fatty liver Hypercholesterolemia Lumbar canal stenosis Restless legs syndrome Thrombocytopenia Pancreatitis (Resolved) 12/2016 Lumbar stenosis Surgical History History of colonoscopy History of cystoscopy D/T INCONTINENCE History of esophagogastroduodenoscopy (EGD) History of laminectomy X2 History of prostatectomy History of tooth extraction Family History Sister Family history of diabetes mellitus Mother Colorectal cancer Brother Prostate cancer Father No problems noted. Son Thyroid disease Social History Preferred Language: Cuban Communication Ability: Effective Visual Impairment: No Limitations Hearing Ability: Normal Beliefs That Will Affect Care: Denominational Denominational Beliefs: RASTAFARI marital status: Current Living Situation: Spouse current occupational status: retired Feels Safe at Home: Yes Smoking Status: Never smoker Tobacco Type: smokeless tobacco ; Age Quit Using Tobacco: 42 ; Second Hand Exposure: No ; Hx Alcohol Use: No (previous use) Hx Substance Use: No Childhood Exposure to Second-Hand Smoke: No Other Diet Comment: regular caffeine: No during the past year weight has: decreased > 10 lbs Dental Care, Regularly: Yes Physical Activity Frequency: Does not Exercise Physical Activity Frequency Comment: limited by physical condition Seatbelt Use: always Sunscreen Use: No Review of Systems See HPI for pertinent positives & negatives. and A total of 10 systems reviewed and were otherwise negative Physical Exam Vital Signs Vital Signs - 24 hr 08/08/19 18:18 08/08/19 19:54 08/08/19 21:42 Temperature 36.6 C Temperature Source Oral Sepsis Recent Fever Within 48 Hours No Sepsis New/Unexplained Change in Mental Status No Sepsis Action Taken by Nursing No Action Required Pulse Rate 69 Pulse Rate [Right Finger] 69 72 Pulse Rhythm Regular Pulse Strength Normal Respiratory Rate 20 16 16 Respiratory Effort / Characteristics Non-Labored Spontaneous Non-Labored Spontaneous Non-Labored Spontaneous Respiratory Depth Normal Normal Normal Respiratory Pattern Regular Regular Regular Blood Pressure 148/83 H Blood Pressure [Right Arm] 117/78 133/75 Blood Pressure Mean 104 Blood Pressure Mean [Right Arm] 91 94 Blood Pressure Position Sitting Blood Pressure Position [Right Arm] Lying Lying Pulse Oximetry 99 97 99 Oxygen Delivery Method Room Air Room Air Room Air 08/08/19 22:21 Temperature Temperature Source Sepsis Recent Fever Within 48 Hours Sepsis New/Unexplained Change in Mental Status Sepsis Action Taken by Nursing Pulse Rate Pulse Rate [Right Finger] 69 Pulse Rhythm Pulse Strength Respiratory Rate 18 Respiratory Effort / Characteristics Non-Labored Spontaneous Respiratory Depth Normal Respiratory Pattern Blood Pressure Blood Pressure [Right Arm] 147/92 H Blood Pressure Mean Blood Pressure Mean [Right Arm] 110 Blood Pressure Position Blood Pressure Position [Right Arm] Sitting Pulse Oximetry 97 Oxygen Delivery Method Room Air GENERAL: He is oriented to person, place, and time. He appears well-developed and well-nourished. He does not appear distressed. HENT: Exam performed. - Head: Normocephalic and atraumatic. - Right Ear: External ear normal. No mastoid tenderness. - Left Ear: External ear normal. No mastoid tenderness. - Mouth/Throat: The oropharynx is clear and moist. No trismus in the jaw. No dental abscesses or uvula swelling. No oropharyngeal exudate or tonsillar abscesses. EYES: Conjunctivae and EOM are normal. Pupils are equal, round, and reactive to light. Right eye exhibits no discharge. Left eye exhibits no discharge. No scleral icterus. NECK: Normal range of motion. Neck supple. No JVD present. No spinous process tenderness present. No carotid bruit present. No rigidity. No tracheal deviation and normal range of motion present. No Brudzinski's sign and no Kernig's sign noted. CV: Normal rate, regular rhythm, normal heart sounds and intact distal pulses. There is no peripheral edema. Palpable radial pulses bue. PULM/CHEST: Effort normal and breath sounds normal. No respiratory distress. No stridor. He has no wheezes. He has no rales. - Chest Wall: He exhibits no tenderness. ABD: The abdomen is soft. Bowel sounds are normal. He has no distension. No mass is present. There is no tenderness. There is no rebound, no guarding, no Paz's sign and no tenderness at McBurney's point. Rovsig negative. : Uncircumcised. Large right-sided inguinal hernia that is tender to touch. MUSC/SKEL: Normal range of motion. There is no peripheral edema, tenderness or deformity. LYMPH: No cervical adenopathy. NEURO: He is alert and oriented to person, place, and time. He has normal strength. No cranial nerve deficit or sensory deficit. Coordination and gait normal. GCS eye subscore is 4. GCS verbal subscore is 5. GCS motor subscore is 6. Cerebellar tests wnl. SKIN: Skin is warm and dry. He is not diaphoretic. PSYCH: He has a normal mood and affect. Behavior is normal. Judgment and thought content normal. Course 1842: The patient was evaluated in room C11B, and a complete history and physical examination were performed.I tried to reduce the hernia while the patient was in Trendelenburg position but it was unable to be reduced. 1944: Vital signs stable. Labs came back with lactic acid of 5.6. Patient has no cardiac history. Will give IV fluids 2 L which would be equivalent of 30 cc/kg bolus. General surgery will be contacted about a possible strangulated hernia. 2020: I spoke with Dr. Cordero - General Surgery, about this patient. 2034: I spoke with Dr. Cordero. He went over the CT scan and states no surgical intervention is needed. 2057: I reevaluated the patient. The patient is still having pain. US was ordered to rule out testicular torsion. 2329: I reevaluated the patient. Vital signs stable. Repeat lactic acid is 2.4 after 30 cc per kilo bolus. Scrotal US shows epididymitis. Patient was given rocephin. I discussed the patient's case with Dr. Pace - [facility] Hospitalist. He will evaluate the patient for further management Administered Medications Sodium Chloride (Nss 1000ml) 1,000 mls @ 125 mls/hr IV .Q8H AMNA Stop: 09/07/19 18:59 Last Admin: 08/08/19 19:10 Dose: 125 mls/hr Documented by: [id number] Ioversol (Optiray 320 100ml) 94 ml IV ONCE PRN PRN Reason: Interaction Checking Stop: 08/12/19 20:11 Last Admin: 08/08/19 20:12 Dose: 94 ml Documented by: [id number] Morphine Sulfate (Morphine Sulfate) 2 mg IV Q4H PRN PRN Reason: Severe Pain Stop: 08/22/19 23:35 Last Admin: 08/08/19 23:47 Dose: 2 mg Documented by: [id number] Discontinued Medications Sodium Chloride (Nss 1000ml) 1,000 mls @ 999 mls/hr IV .Q1H1M ONE Stop: 08/08/19 20:44 Last Infusion: 08/08/19 20:47 Dose: 0 mls/hr Documented by: [id number] Admin: 08/08/19 19:54 Dose: 999 mls/hr Documented by: [id number] Ceftriaxone Sodium (Rocephin) 1,000 mg in 50 mls @ 100 mls/hr IV NOW STA Stop: 08/08/19 23:05 Last Infusion: 08/08/19 23:38 Dose: 0 mls/hr Documented by: [id number] Admin: 08/08/19 23:03 Dose: 100 mls/hr Documented by: [id number] Ketorolac Tromethamine (Toradol) 15 mg IV NOW STA Stop: 08/08/19 18:52 Last Admin: 08/08/19 19:10 Dose: 15 mg Documented by: [id number] Medical Decision Making Medical Records Attestation: I reviewed the patient's medical records. Home Medications Current Medication List: was personally reviewed by me Laboratory Data Attestation: I reviewed the patient's lab results. Result diagrams: 08/08/19 19:08 08/08/19 19:08 Lab Results 08/08/19 08/08/19 08/08/19 Range/Units 19:08 19:08 19:08 WBC 4.88 (4.8-10.8) K/uL RBC 3.47 L (4.7-6.1) M/uL Hgb 9.8 L (14.0-18.0) g/dL Hct 29.8 L (42-52) % MCV 85.9 (80-100) fL MCH 28.2 (25-34) pg MCHC 32.9 (32-36) g/dL RDW Std Deviation 48.5 H (36.4-46.3) fL RDW Coeff of Elliot 15.4 H (11.5-14.5) % Plt Count 146 (130-400) K/uL MPV 9.7 (7.4-10.4) fL Immature Gran % (Auto) 0.0 % Neut % (Auto) 53.1 % Lymph % (Auto) 38.3 % [place] % (Auto) 6.6 % Eos % (Auto) 1.6 % Baso % (Auto) 0.4 % Immature Gran # (Auto) 0.00 (0.00-0.02) K/uL Neut # (Auto) 2.59 (1.4-6.5) K/uL Lymph # (Auto) 1.87 (1.2-3.4) K/uL [place] # (Auto) 0.32 (0.11-0.59) K/uL Eos # (Auto) 0.08 (0-0.5) K/uL Baso # (Auto) 0.02 (0-0.2) K/uL PT 12.3 H (9.0-12.0) Seconds INR 1.2 H (0.9-1.1) APTT 29.1 (21.0-31.0) Seconds PTT Ratio 1.1 Sodium 139 (136-145) mmol/L Potassium 3.5 (3.5-5.1) mmol/L Chloride 106 (98-107) mmol/L Carbon Dioxide 22 (21-32) mmol/L Anion Gap 11.0 (3-11) BUN 6 L (7-18) mg/dl Creatinine 0.64 (0.6-1.4) mg/dl Est Cr Clr Drug Dosing 92.7 ml/min Est GFR ( Amer) 109.5 Est GFR (Non-Af Amer) 94.4 BUN/Creatinine Ratio 9.4 L (10-20) Glucose 138 H (70-99) mg/dl Lactate (0.4-2.0) mmol/L Calcium 8.3 L (8.5-10.1) mg/dl Total Bilirubin 0.6 (0.2-1) mg/dl Direct Bilirubin 0.4 H (0-0.2) mg/dl AST 46 H (15-37) U/L ALT 30 (12-78) U/L Alkaline Phosphatase 343 H (45-117) U/L Total Protein 6.8 (6.4-8.2) gm/dl Albumin 2.5 L (3.4-5.0) gm/dl Lipase 63 L (73-393) U/L 08/08/19 08/08/19 Range/Units 19:09 21:24 WBC (4.8-10.8) K/uL RBC (4.7-6.1) M/uL Hgb (14.0-18.0) g/dL Hct (42-52) % MCV (80-100) fL MCH (25-34) pg MCHC (32-36) g/dL RDW Std Deviation (36.4-46.3) fL RDW Coeff of Elliot (11.5-14.5) % Plt Count (130-400) K/uL MPV (7.4-10.4) fL Immature Gran % (Auto) % Neut % (Auto) % Lymph % (Auto) % [place] % (Auto) % Eos % (Auto) % Baso % (Auto) % Immature Gran # (Auto) (0.00-0.02) K/uL Neut # (Auto) (1.4-6.5) K/uL Lymph # (Auto) (1.2-3.4) K/uL [place] # (Auto) (0.11-0.59) K/uL Eos # (Auto) (0-0.5) K/uL Baso # (Auto) (0-0.2) K/uL PT (9.0-12.0) Seconds INR (0.9-1.1) APTT (21.0-31.0) Seconds PTT Ratio Sodium (136-145) mmol/L Potassium (3.5-5.1) mmol/L Chloride (98-107) mmol/L Carbon Dioxide (21-32) mmol/L Anion Gap (3-11) BUN (7-18) mg/dl Creatinine (0.6-1.4) mg/dl Est Cr Clr Drug Dosing ml/min Est GFR ( Amer) Est GFR (Non-Af Amer) BUN/Creatinine Ratio (10-20) Glucose (70-99) mg/dl Lactate 5.6 H* 2.4 H* (0.4-2.0) mmol/L Calcium (8.5-10.1) mg/dl Total Bilirubin (0.2-1) mg/dl Direct Bilirubin (0-0.2) mg/dl AST (15-37) U/L ALT (12-78) U/L Alkaline Phosphatase (45-117) U/L Total Protein (6.4-8.2) gm/dl Albumin (3.4-5.0) gm/dl Lipase (73-393) U/L Imaging Data Radiologist's Impression: Radiology results as stated below per my review and the radiologist's interpretation: ABDOMEN AND PELVIS CT WITH IV CONTRAST CT DOSE: 753.29 mGycm HISTORY: Right lower quadrant pain. Hernia. TECHNIQUE: Multiaxial CT images of the abdomen and pelvis were performed following the use of intravenous contrast. A dose lowering technique was utilized adhering to the principles of ALARA. COMPARISON STUDY: Abdomen and pelvis CT 06/13/2019. FINDINGS: The lung bases are essentially clear. No pneumoperitoneum. No pneumatosis. Posterior decompression within the lower lumbar spine. No suspic ious lytic are blastic osseous lesions. The cirrhotic liver, splenomegaly, and a small amount of ascites is not significantly changed. Upper abdominal and paraesophageal varices persist. Normal bladder. The portal vein is patent. The gallbladder, kidneys, and adrenal glands unremarkable. Mildly enlarged periportal lymph nodes remain unchanged. Mild fullness and heterogeneous appearance to the tail of the pancreas. This raises the possibility of an underlying pancreatic lesion. This is also mild edema/inflammatory change surrounding the tail the pancreas which could represent an associated panc reatitis. This is similar to the prior study. Stable 6 mm hypodense lesion within the right hepatic lobe. This is technically too small to characterize. Prominent mesenteric lymph nodes are also noted. Redemonstration of the high riding right testicle with associated moderate hydrocele. Small fat and fluid containing right inguinal hernia. No bowel wall thickening or obstruction. Normal appendix. IMPRESSION: 1. There is again noted a high riding right testicle with a moderate hydrocele. This is similar to the prior testicular ultrasound. 2. Small fat and fluid containing right inguinal hernia. 3. No bowel wall thickening or obstruction. 4. Normal appendix. 5. Cirrhotic liver with associated splenomegaly and a small amount of ascites, unchanged. 6. Heterogeneous pancreatic tail with surrounding peripancreatic edema. This is similar to the prior study and could be due to acute pancreatitis. However, an underlying pancreatic mass could also have a similar appearance. Dedicated pancreatic MRI is recommended once the possible pancreatitis is resolved. Electronically signed by: Jose Barriga M.D. 08/08/2019 8:30 PM TESTICULAR ULTRASOUND HISTORY: R testicular pain COMPARISON: Abdomen and pelvis CT 08/08/2019. Testicular ultrasound 06/23/2019. FINDINGS: Right testis: 3.7 x 2.4 x 1.7 cm. There are no intratesticular masses. Normal color flow. Small hydrocele. Mildly thickened epididymis without increased color flow. Left testis: 4.2 x 3.8 x 2.1 cm. There are no intratesticular masses. Normal color flow. No hydrocele. The epididymis is unremarkable. Miscellaneous: Small partially reducible fat-containing right inguinal hernia. IMPRESSION: 1. Normal bilateral testes. 2. Small right hydrocele. 3. Small partially reducible fat-containing right inguinal hernia. 3. Mildly thickened right epididymis. This could represent an epididymitis. Electronically signed by: Jose Barriga M.D. 08/08/2019 10:16 PM Blood Pressure Blood Pressure Findings: Elevated blood pressure Blood Pressure Disposition: further management by hospitalist DYLON Narrative 1842: The patient was evaluated in room C11B, and a complete history and physical examination were performed.I tried to reduce the hernia while the patient was in Trendelenburg position but it was unable to be reduced. 1944: Vital signs stable. Labs came back with lactic acid of 5.6. Patient has no cardiac history. Will give IV fluids 2 L which would be equivalent of 30 cc/kg bolus. General surgery will be contacted about a possible strangulated hernia. 2020: I spoke with Dr. Cordero - General Surgery, about this patient. 2034: I spoke with Dr. Cordero. He went over the CT scan and states no surgical intervention is needed. 2057: I reevaluated the patient. The patient is still having pain. US was ordered. 2329: I reevaluated the patient. Vital signs stable. Repeat lactic acid is 2.4 after 30 cc per kilo bolus. Scrotal US shows epididymitis. Patient was given rocephin. I discussed the patient's case with Dr. Pace - [facility] Hospitalist. He will evaluate the patient for further management Impression & Plan Pancreatitis, Lactic acidosis, Pancreatic mass, Hydrocele, Inguinal hernia, right Critical Care Time Critical Care Time: Yes Total Critical Care Time: 35 I have personally spent 35 minutes of critical care time in the direct manageme nt of this patient. This includes bedside care, interpretation of diagnostic studies, and testing, discussion with consultants, patient, and family members, and other required patient management activities. This 35 minutes is in excess of all separately billable procedures. Discharge Plan Visit Data *Final* Discharge Date/Time: 08/08/19 23:50 Chief Complaint: Testicular Pain Stated Complaint: RT TESTICULAR PAIN ED Provider: Vince Joy Discharge Problem: Pancreatitis, Lactic acidosis, Pancreatic mass, Hydrocele, Inguinal hernia, right Patient Disposition: Admitted As Inpatient Discharge Instructions Interventions: ED Discharge Assessment Last Done: 08/08/19 23:50 Discharge Problem: Pancreatitis Qualifiers: Chronicity: acute Pancreatitis type: unspecified pancreatitis type Acute pancreatitis complication: unspecified Qualified Code(s): K85.90 - Acute pancreatitis without necrosis or infection, unspecified Hydrocele Qualifiers: Hydrocele type: unspecified Qualified Code(s): N43.3 - Hydrocele, unspecified The scribe's documentation has been prepared under my direction and personally reviewed by me in its entirety. I confirm that the note above accurately reflects all work, treatment, procedures, and medical decision making performed by me.
[2019-08-09] MEDS: PROPRANOLOL HCL 20 MG TAB PO SCH ×3 (00:55→20:30)
[2019-08-09] MEDS: PANTOprazole 40 MG TAB PO SCH ×3 (00:55→20:31)
[2019-08-09] MEDS ORDERED: Nursing to Pharmacy Communication ONE ×2 (02:27→13:17)
--- NOTE | 2019-08-09 04:46 | History & Physical Report ---
Date of Service August 09, 2019 Patient was seen and examined on 08/08/2019 Assessment & Plan (1) Epididymitis, right: Place on ceftriaxone 1 g IV daily. Follow clinical response. Present on Admission?: Yes (2) Inguinal hernia, right: Right inguinal hernia/high riding right testicle as noted on previous ultrasound. It appears that his pain is more related to epididymitis at this time. Surgical consult can be obtained if needed. Present on Admission?: Yes (3) Liver cirrhosis, alcoholic: Clinically and radiographically stable at this time Present on Admission?: Yes (4) Pancreatitis: CT of abdomen pelvis performed today, suggests a heterogeneity pancreatic tail with surrounding peripancreatic edema which is similar to prior study of 07/10/2019 which could be due to acute pancreatitis, however, an underlying pancreatic mass calls have a similar appearance. A dedicated pancreatic MRI is recommended once the possible pancreatitis is resolved. Patient has no symptoms referable to pancreatitis, has declining AST from 79-46, declining alk phos from 408-343, and declining lipase down to 63. Patient did have a lipase elevation to 3568 on 06/13/2019. Question whether there may be an element of chronic pancreatitis being seen on CT, as there is no symptomatology of active pancreatitis. Present on Admission?: Yes (5) Hypertension: Continue amlodipine 5 mg every morning, lisinopril 20 mg every morning and propranolol 40 mg p.o. twice daily Present on Admission?: Yes (6) Diabetes mellitus, type 2: Hold metformin. Placed on Accu-Cheks before meals and at bedtime with NovoLog coverage per scale Present on Admission?: Yes (7) History of prostate cancer: Being followed in the outpatient setting Present on Admission?: Yes (8) GERD (gastroesophageal reflux disease): Continue pantoprazole 40 mg p.o. twice daily Present on Admission?: Yes (9) Esophageal stricture: Continues on pantoprazole 40 mg p.o. twice daily as noted above Present on Admission?: Yes (10) Lumbar disc herniation: Continue with Freedom twice daily, and gabapentin 400 mg at bedtime. Present on Admission?: Yes (11) Depression: Continue venlafaxine ER 150 mg daily, and venlafaxine 75 mg every morning. Present on Admission?: Yes History of Present Illness Chief Complaint: The patient presents to the emergency department with right groin and testicular pain that began the previous evening. Primary Care Provider: Karley Branch DO The patient is a 79-year-old male with a past medical history including prostate cancer/diabetes mellitus/GERD/alcoholic liver cirrhosis/esophageal stricture/anemia/esophageal varices/fatty liver/hypercholesterolemia/lumbar spine stenosis/restless leg syndrome and thrombocytopenia who presents to the emergency department with persistent severe right groin and right testicular pain over the past 24 hours. Allergies Allergy/AdvReac Type Severity Reaction Status Date / Time No Known Allergies Allergy Verified 08/08/19 21:41 Home Medications Home Medications Medication Instructions Recorded Confirmed Type hydrocodone-acetaminophen 1 tab PO AMHS 06/07/18 08/08/19 History propranolol 40 mg tablet 40 mg PO BID 30 Days #60 tab 03/08/19 08/08/19 Rx venlafaxine ER 150 mg 150 mg PO QAM #30 tab 03/08/19 08/08/19 Rx capsule,extended release 24 hr gabapentin 400 mg capsule 400 mg PO HS cap 06/09/19 08/08/19 History lisinopril 20 mg tablet 10 mg PO QAM tab 06/09/19 08/08/19 History atorvastatin 80 mg PO HS 06/13/19 08/08/19 History metformin 1,000 mg PO BID 06/13/19 08/08/19 History omega-3 fatty acids [Fish Oil 1,000 mg PO QAM 06/13/19 08/08/19 History Concentrate] pantoprazole 40 mg PO BID 06/13/19 08/08/19 History amlodipine 5 mg PO QAM 08/08/19 08/08/19 History venlafaxine 75 mg PO QAM 08/08/19 08/08/19 History Past Med/Surg History Medical History Microscopic hematuria Hypertension Depression Diabetes mellitus, type 2 GERD (gastroesophageal reflux disease) Chronic back pain CHRONIC NECK PAIN, NORMAL ROM History of prostate cancer s/p prostatectomy in 1998, no chemo/no radiation Liver cirrhosis, alcoholic Lumbar disc herniation Gastric polyps Hiatal hernia Anemia Arthritis Cervical spondylosis without myelopathy Chronic gastric ulcer Esophageal varices Fatty liver Hypercholesterolemia Lumbar canal stenosis Restless legs syndrome Thrombocytopenia Pancreatitis (Resolved) 12/2016 Lumbar stenosis Surgical History History of colonoscopy History of cystoscopy D/T INCONTINENCE History of esophagogastroduodenoscopy (EGD) History of laminectomy X2 History of prostatectomy History of tooth extraction Family History Sister Family history of diabetes mellitus Mother Colorectal cancer Brother Prostate cancer Father No problems noted. Son Thyroid disease Social History Preferred Language: Slovak Communication Ability: Effective Visual Impairment: No Limitations Hearing Ability: Normal Griddle Attendant Required: No Beliefs That Will Affect Care: None marital status: Current Living Situation: Spouse current occupational status: retired Other Information That Helps Us Care for You: No Feels Safe at Home: Yes Safety Concerns: Feels Safe At This Time Smoking Status: Never smoker Tobacco Type: smokeless tobacco ; Age Quit Using Tobacco: 42 ; Do You Dip or Chew Tobacco: No ; Second Hand Exposure: No ; Tobacco Cessation Education Requested by Patient: No Hx Alcohol Use: No Hx Substance Use: No Childhood Exposure to Second-Hand Smoke: No Other Diet Comment: regular caffeine: No during the past year weight has: decreased > 10 lbs Dental Care, Regularly: Yes Physical Activity Frequency: Does not Exercise Physical Activity Frequency Comment: limited by physical condition Seatbelt Use: always Sunscreen Use: No Review of Systems Review of Systems: The patient denies chest pain, palpitations, shortness of breath, dyspnea on exertion, cough, lower extremity swelling, sore throat, fevers, chills, sweats, weight change, fatigue, nausea, vomiting, diarrhea , constipation, abdominal pain, pelvic pain, blood in urine or stool, dysuria, urinary frequency or urgency, lightheadedness, dizziness, headache, memory loss, loss of consciousness, rash, abnormal bruising or bleeding, imbalance, focal or generalized weakness, numbness or tingling in arms or legs, or night sweats. The review of systems is otherwise negative other than for that already noted above, and at least 10 systems have been reviewed. Physical Exam Physical Exam: The patient is awake, alert and oriented 3, well developed and well nourished, normocephalic and atraumatic, lying in bed and in no acute distress. HEENT--PERRL, EOMI, mucous membranes and oropharynx normal. Neck--No JVD. No bruits. Thyroid normal, trachea midline, no adenopathy. Heart--normal S1 and S2. No murmurs, rubs or gallops. Lungs--clear bilaterally, no respiratory distress, no accessory muscle use. Abdomen--normal bowel sounds and soft. Nontender. Nondistended. Right groin hernia/testicle with mild pain. Extremities--no cyanosis or clubbing. No edema. Dermatologic--normal skin turgor, normal color, no abnormal lymph nodes, no rash. Neurologic--cranial nerves II through XII grossly intact. Rheumatologic--normal range of motion. Psychiatric--normal affect. Results & Data Vital Signs (Past 12 Hours) Vital Signs Temp Pulse Pulse Resp BP BP Pulse Ox 08/09/19 00:00 98.2 F 64 18 149/77 H 97 08/08/19 23:50 74 16 156/86 H 99 08/08/19 22:21 69 18 147/92 H 97 08/08/19 21:42 72 16 133/75 99 08/08/19 19:54 69 16 117/78 97 08/08/19 18:18 97.9 F 69 20 148/83 H 99 Laboratory Results Laboratory Results WBC 4.88 K/uL (4.8-10.8) 08/08/19 19:08 RBC 3.47 M/uL (4.7-6.1) L 08/08/19 19:08 Hgb 9.8 g/dL (14.0-18.0) L 08/08/19 19:08 Hct 29.8 % (42-52) L 08/08/19 19:08 MCV 85.9 fL (80-100) 08/08/19 19:08 MCH 28.2 pg (25-34) 08/08/19 19:08 MCHC 32.9 g/dL (32-36) 08/08/19 19:08 RDW Std Deviation 48.5 fL (36.4-46.3) H 08/08/19 19:08 RDW Coeff of Elliot 15.4 % (11.5-14.5) H 08/08/19 19:08 Plt Count 146 K/uL (130-400) 08/08/19 19:08 MPV 9.7 fL (7.4-10.4) 08/08/19 19:08 Immature Gran % (Auto) 0.0 % 08/08/19 19:08 Neut % (Auto) 53.1 % 08/08/19 19:08 Lymph % (Auto) 38.3 % 08/08/19 19:08 [place] % (Auto) 6.6 % 08/08/19 19:08 Eos % (Auto) 1.6 % 08/08/19 19:08 Baso % (Auto) 0.4 % 08/08/19 19:08 Immature Gran # (Auto) 0.00 K/uL (0.00-0.02) 08/08/19 19:08 Neut # (Auto) 2.59 K/uL (1.4-6.5) 08/08/19 19:08 Lymph # (Auto) 1.87 K/uL (1.2-3.4) 08/08/19 19:08 [place] # (Auto) 0.32 K/uL (0.11-0.59) 08/08/19 19:08 Eos # (Auto) 0.08 K/uL (0-0.5) 08/08/19 19:08 Baso # (Auto) 0.02 K/uL (0-0.2) 08/08/19 19:08 PT 12.3 Seconds (9.0-12.0) H 08/08/19 19:08 INR 1.2 (0.9-1.1) H 08/08/19 19:08 APTT 29.1 Seconds (21.0-31.0) 08/08/19 19:08 PTT Ratio 1.1 08/08/19 19:08 Sodium 139 mmol/L (136-145) 08/08/19 19:08 Potassium 3.5 mmol/L (3.5-5.1) 08/08/19 19:08 Chloride 106 mmol/L (98-107) 08/08/19 19:08 Carbon Dioxide 22 mmol/L (21-32) 08/08/19 19:08 Anion Gap 11.0 (3-11) 08/08/19 19:08 BUN 6 mg/dl (7-18) L 08/08/19 19:08 Creatinine 0.64 mg/dl (0.6-1.4) 08/08/19 19:08 Est Cr Clr Drug Dosing 92.7 ml/min 08/08/19 19:08 Est GFR ( Amer) 109.5 08/08/19 19:08 Est GFR (Non-Af Amer) 94.4 08/08/19 19:08 BUN/Creatinine Ratio 9.4 (10-20) L 08/08/19 19:08 Glucose 138 mg/dl (70-99) H 08/08/19 19:08 Lactate 2.4 mmol/L (0.4-2.0) H* 08/08/19 21:24 Calcium 8.3 mg/dl (8.5-10.1) L 08/08/19 19:08 Total Bilirubin 0.6 mg/dl (0.2-1) 08/08/19 19:08 Direct Bilirubin 0.4 mg/dl (0-0.2) H 08/08/19 19:08 AST 46 U/L (15-37) H 08/08/19 19:08 ALT 30 U/L (12-78) 08/08/19 19:08 Alkaline Phosphatase 343 U/L (45-117) H 08/08/19 19:08 Total Protein 6.8 gm/dl (6.4-8.2) 08/08/19 19:08 Albumin 2.5 gm/dl (3.4-5.0) L 08/08/19 19:08 Lipase 63 U/L (73-393) L 08/08/19 19:08 Urine Color Yellow 08/08/19 22:50 Urine Appearance Clear (Clear) 08/08/19 22:50 Urine pH 8.0 (4.5-7.5) H 08/08/19 22:50 Ur Specific [place] 1.016 (1.000-1.030) 08/08/19 22:50 Urine Protein Negative (Negative) 08/08/19 22:50 Urine Glucose (UA) Negative (Negative) 08/08/19 22:50 Urine Ketones Negative (Negative) 08/08/19 22:50 Urine Blood Negative (Negative) 08/08/19 22:50 Urine Nitrite Negative (Negative) 08/08/19 22:50 Urine Bilirubin Negative (Negative) 08/08/19 22:50 Urine Urobilinogen Negative (Negative) 08/08/19 22:50 Ur Leukocyte Esterase Negative (Negative) 08/08/19 22:50 Diagnostic Findings [facility] [place] [phone] CT Scan Report Patient: SABINA CLARK GAddeepak Date: 08/08/19 MR#: [id number]: [address] Acct ID:[id number]: Date: 1940[facility] Zip: [place] [address] Age: 79Location: ED Sex: M Room/Bed: Att Phy:Diagnosis: RT TESTICULAR PAIN Nadine Phy: Karley Branch, DOService Date: 08/08/19 Fam Phy:Interpreting Phy: Jose Barriga MD Admit Phy: Ordering Phy: Vince Joy M.D. cc: ~ ABDOMEN AND PELVIS CT WITH IV CONTRAST CT DOSE: 753.29 mGycm HISTORY: Right lower quadrant pain. Hernia. TECHNIQUE: Multiaxial CT images of the abdomen and pelvis were performed following the use of intravenous contrast. A dose lowering technique was utilized adhering to the principles of ALARA. COMPARISON STUDY: Abdomen and pelvis CT 06/13/2019. FINDINGS: The lung bases are essentially clear. No pneumoperitoneum. No pneumatosis. Posterior decompression within the lower lumbar spine. No suspicious lytic are blastic osseous lesions. The cirrhotic liver, splenomegaly, and a small amount of ascites is not significantly changed. Upper abdominal and paraesophageal varices persist. Normal bladder. The portal vein is patent. The gallbladder, kidneys, and adrenal glands unremarkable. Mildly enlarged periportal lymph nodes remain unchanged. Mild fullness and heterogeneous appearance to the tail of the pancreas. This raises the possibility of an underlying pancreatic lesion. This is also mild edema/inflammatory change surrounding the tail the pancreas which could represent an associated pancreatitis. This is similar to the prior study. Stable 6 mm hypodense lesion within the right hepatic lobe. This is technically too small to characterize. Prominent mesenteric lymph nodes are also noted. Redemonstration of the high riding right testicle with associated moderate hydrocele. Small fat and fluid containing right inguinal hernia. No bowel wall thickening or obstruction. Normal appendix. IMPRESSION: 1. There is again noted a high riding right testicle with a moderate hydrocele. This is similar to the prior testicular ultrasound. 2. Small fat and fluid containing right inguinal hernia. 3. No bowel wall thickening or obstruction. 4. Normal appendix. 5. Cirrhotic liver with associated splenomegaly and a small amount of ascites, unchanged. 6. Heterogeneous pancreatic tail with surrounding peripancreatic edema. This is similar to the prior study and could be due to acute pancreatitis. However, an underlying pancreatic mass could also have a similar appearance. Dedicated pancreatic MRI is recommended once the possible pancreatitis is resolved. Electronically signed by: Jose Barriga M.D. 08/08/2019 8:30 PM Dictated: 08/08/192018 Transcribed: 08/08/192018 [facility], [place] [phone] Ultrasound Report Patient: SABINA CLARK Date: 08/08/19 MR#: [id number]: [address] Acct ID:[id number]: Date: 1940[facility] Zip: [place] [address] Age: 79Location: ED Sex: M Room/Bed: Att Phy:Diagnosis: RT TESTICULAR PAIN Nadine Phy: Karley Branch, DOService Date: 08/08/19 Fam Phy:Interpreting Phy: Jose Barriga MD Admit Phy: Ordering Phy: Vince Joy M.D. cc: ~ TESTICULAR ULTRASOUND HISTORY: R testicular pain COMPARISON: Abdomen and pelvis CT 08/08/2019. Testicular ultrasound 06/23/2019. FINDINGS: Right testis: 3.7 x 2.4 x 1.7 cm. There are no intratesticular masses. Normal color flow. Small hydrocele. Mildly thickened epididymis without increased color flow. Left testis: 4.2 x 3.8 x 2.1 cm. There are no intratesticular masses. Normal color flow. No hydrocele. The epididymis is unremarkable. Miscellaneous: Small partially reducible fat-containing right inguinal hernia. IMPRESSION: 1. Normal bilateral testes. 2. Small right hydrocele. 3. Small partially reducible fat-containing right inguinal hernia. 3. Mildly thickened right epididymis. This could represent an epididymitis. Electronically signed by: Jose Barriga M.D. 08/08/2019 10:16 PM Dictated: 08/08/192212 Transcribed: 08/08/192212 [facility] [phone] Ultrasound Report Patient: SABINA CLARK Date: 06/23/19 MR#: [id number]: [address] [facility] Acct ID:[id number]: Date: 1940[facility] Zip: [place] [address] Age: 78Location: US1 Sex: M Room/Bed: Att Phy: Carly Mendes CRNPDiagnosis: R TESTICULAR SWELLING Nadine Phy: Karley Branch, DOService Date: 06/23/19 Fam Phy:Interpreting Phy: Vel Quach MD Admit Phy: Ordering Phy: Carly Mendes CRNP cc: ~ ADDENDUM Number 3 of the impression should read the testis are otherwise normal with normal vascular flow Electronically signed by: Vel Quach M.D. 07/24/2019 7:12 AM ADDENDUM END ADDENDUM ADDENDUM: There is a transcriptional error under impression point #3. This should read, "3. The testes are otherwise normal with normal vascular flow." Electronically signed by: Tony Morocho M.D. 07/03/2019 10:41 AM ADDENDUM END US scrotum/testicle HISTORY: Pain. Edema. right testicular swelling COMPARISON: None. FINDINGS: Right testis: Maximum linear dimension 3.5 cm. Normal vascular flow. Small right hydrocele. The right testis occupies the lower aspect of the right inguinal canal. Left testis: Maximum dimension 4.4 cm. Normal vascular flow. 4 mm scrotal 9 calcification. IMPRESSION: 1. Right testis is elevated in position and is located in part in the lower right inguinal canal. 2. Small right hydrocele. 3. Metastasis are otherwise normal with normal vascular flow The above report was generated using voice recognition software. It may contain grammatical, syntax or spelling errors. Electronically signed by: Vel Quach M.D. 06/23/2019 9:13 AM Dictated: 06/23/19911 Transcribed: 06/23/19911 Code Status & VTE Plan Code Status Full code VTE Prophylaxis Plan VTE Prophylaxis will be ordered: Yes PG Care Time/CCT Total # of Minutes Spent Total Time Spent with Patient: Total time spent is greater than 50% in coordination of care (as documented) at patient's floor/unit and/or counseling patient: (1) Pancreatitis Acute pancreatitis complication: unspecified Chronicity: acute Pancreatitis type: unspecified pancreatitis type Qualified Code(s): K85.90 - Acute pancreatitis without necrosis or infection, unspecified
[2019-08-09] MEDS: INSULIN ASPART 100 UNITS/ML 3 ML PEN SC SCH ×6 (06:05→21:15)
[2019-08-09 06:41] LABS: Estimated Average Glucose 131 mg/dl; Hemoglobin A1C 6.2 % (4.5-5.6)
[2019-08-09] MEDS ORDERED: INSULIN ASPART 100 UNITS/ML 3 ML PEN SC SCH (07:30)
[2019-08-09] MEDS: HYDROCODONE/ACETAMINOPHEN 10/325 TAB PO SCH ×2 (08:51→20:30)
[2019-08-09] MEDS: VENLAFAXINE HCL XR 75 MG CAPXR PO SCH (08:53)
[2019-08-09] MEDS: AMLODIPINE BESYLATE 5 MG TAB PO SCH (08:53)
[2019-08-09] MEDS: VENLAFAXINE HCL XR 150 MG CAPXR PO SCH (08:53)
[2019-08-09] MEDS: LISINOPRIL 20 MG TAB PO SCH (08:54)
[2019-08-09] MEDS ORDERED: cefTRIAXone SODIUM 2,000 MG in DEXTROSE 5% 50 ML IV SCH (09:00)
--- NOTE | 2019-08-09 12:17 | Hospitalist Progress Note ---
Date of Service August 09, 2019 Assessment & Plan (1) Epididymitis, right: Continue ceftriaxone 1 g IV daily. Patient improving, afebrile BC pending Lactic acid was 5.6 on admission and trended down, will dc IVF (2) Inguinal hernia, right: Right inguinal hernia/high riding right testicle as noted on previous ultrasound. Surgical consult can be obtained if needed but at this time patient is improving No incarceration on CT - partially reducible (3) Liver cirrhosis, alcoholic: Clinically and radiographically stable at this time (4) Pancreatitis: CT of abdomen pelvis suggests a heterogeneity pancreatic tail with surrounding peripancreatic edema which is similar to prior study of 07/10/2019 which could be due to acute pancreatitis, however, an underlying pancreatic mass calls have a similar appearance. - no pancreatic symptoms, lipase was wnl down from previous admission 3568 on 06/13/2019. - will need follow up pancreatic MRI - will dc IVF and start clear liquids (5) Hypertension: Continue amlodipine 5 mg every morning, lisinopril 20 mg every morning and propranolol 40 mg p.o. twice daily (6) Diabetes mellitus, type 2: Hold metformin. Continue Accu-Cheks before meals and at bedtime with NovoLog coverage per scale (7) History of prostate cancer: Being followed in the outpatient setting (8) GERD (gastroesophageal reflux disease): Continue pantoprazole 40 mg p.o. twice daily (9) Esophageal stricture: Continues on pantoprazole 40 mg p.o. twice daily as noted above (10) Lumbar disc herniation: Continue with Parker twice daily, and gabapentin 400 mg at bedtime. (11) Depression: Continue venlafaxine ER 150 mg daily, and venlafaxine 75 mg every morning. (12) DVT prophylaxis: heparin subq Supervising Physician Co-Signing Physician Notes I examined and seen patient with IRISH Maciel and agree with assessment and plan. Subjective Mr. Huggins is feeling much better today. Pain in his right groin is improving. He is not having any aches or chills or nausea. ROS Constitutional: no chills, aches, sweats or fever Respiratory: no sob,cough, sputum, or wheezing Cardiac: no chest pain, palpitations, edema, orthopnea or lightheadedness GI: no abdominal pain, nausea, vomiting, diarrhea or constipation : no dysuria or hesitancy Extremities: no joint pain or weakness Skin: no rash All other systems reviewed and negative Physical Exam Physical Exam: General: no distress Eyes: normal inspection, PERLL Respiratory: chest non tender, clear to auscultation, normal breath sounds, no respiratory distress, no accessory muscle use Cardiac: regular rate and rhythm, no rub or gallop, no murmur, no edema, no jvd GI/: active bowel sounds, no abd pain or tenderness, soft, non distended, no erythema over scrotum/inguinal area, mild tenderness to palpation Extremities: normal range of motion, normal strength, non tender Neuro/Psych: alert and oriented x 3, normal mood and affect Skin: normal color, dry, Results & Data Vital Signs (Past 12 Hours) Vital Signs Temp Pulse Resp BP Pulse Ox 08/09/19 07:41 36.8 C 70 18 139/81 97 PG Care Time/CCT Total # of Minutes Spent Total Time Spent with Patient: Total time spent is greater than 50% in coordination of care (as documented) at patient's floor/unit and/or counseling patient: (1) Pancreatitis Acute pancreatitis complication: unspecified Chronicity: acute Pancreatitis type: unspecified pancreatitis type Qualified Code(s): K85.90 - Acute pancreatitis without necrosis or infection, unspecified
[2019-08-09] MEDS: HYDROCODONE/ACETAMINOPHEN 10/325 TAB PO PRN (16:22)
--- NOTE | 2019-08-09 17:37 | XRay Report ---
XR elbow RT min 3V routine CLINICAL HISTORY: pain following fall trauma. Pain. COMPARISON: None. DISCUSSION: Generalized degenerative change. Moderate osteophytic changes throughout all major compar tments. No well-defined fracture or dislocation. No significant joint effusion. Moderate generalized soft tis suman edema. IMPRESSION: 1. Generalized degenerative change. 2. Soft tissue edema. 3. No acute bony abnormality. The above report was generated using voice recognition software. It may contain grammatical, syntax or spelling errors. Electronically signed by: Vel Quach M.D. 08/09/2019 5:36 PM
[2019-08-09] MEDS ORDERED: cefTRIAXone SODIUM 1,000 MG in DEXTROSE 5% 50 ML IV SCH (20:00)
[2019-08-09] MEDS: GABAPENTIN 400 MG CAP PO SCH (20:30)
[2019-08-09] MEDS: ATORVASTATIN 40 MG TAB PO SCH (20:30)
[2019-08-09] MEDS: HEPARIN SOD 5,000 UNIT/0.5 ML VIAL SQ SCH (21:11)
[2019-08-09] MEDS: MoRPHine SULFATE 2 MG/ML CARP IV PRN (23:10)
[2019-08-10] MEDS: INSULIN ASPART 100 UNITS/ML 3 ML PEN SC SCH ×4 (09:15→22:47)
[2019-08-10] MEDS: HYDROCODONE/ACETAMINOPHEN 10/325 TAB PO SCH ×2 (09:23→21:57)
[2019-08-10] MEDS: HEPARIN SOD 5,000 UNIT/0.5 ML VIAL SQ SCH ×2 (09:23→22:01)
[2019-08-10] MEDS: VENLAFAXINE HCL XR 75 MG CAPXR PO SCH (09:24)
[2019-08-10] MEDS: PANTOprazole 40 MG TAB PO SCH ×2 (09:24→21:57)
[2019-08-10] MEDS: VENLAFAXINE HCL XR 150 MG CAPXR PO SCH (09:24)
[2019-08-10] MEDS: LISINOPRIL 20 MG TAB PO SCH (09:24)
[2019-08-10] MEDS: AMLODIPINE BESYLATE 5 MG TAB PO SCH (09:25)
[2019-08-10] MEDS: PROPRANOLOL HCL 20 MG TAB PO SCH ×2 (09:25→21:57)
--- NOTE | 2019-08-10 11:24 | Ultrasound Report ---
US scrotum/testicle CLINICAL HISTORY: Increasing scrotal pain COMPARISON STUDY: 08/08/2019 FINDINGS: The right testis measures 38 x 25 x 19 mm. The left testis measures 45 x 34 x 24 mm. There is no evidence of testicular torsion. No intratesticular masses are visualized. There is a 4 mm left-sided scrotolith There are small bilateral hydroceles. There is borderline right spermatic cord thickening Note is made of ascites IMPRESSION: 1. No evidence of intratesticular mass 2. No evidence of testicular torsion 3. Ascites 4. Borderline right spermatic cord thickening Electronically signed by: Abdiaziz Nolen M.D. 08/10/2019 11:23 AM
--- NOTE | 2019-08-10 16:18 | Hospitalist Progress Note ---
Date of Service August 10, 2019 Assessment & Plan (1) Epididymitis, right: Continue ceftriaxone 1 g IV daily. repeated US due to increased pain - no torsion, borderline spermatic cord thickening BC ngtc Lactic acid was 5.6 on admission and trended down Consult urology (2) Inguinal hernia, right: Right inguinal hernia/high riding right testicle as noted on previous ultrasound. No incarceration on CT - partially reducible Repeat ultrasound did not discuss hernia (3) Liver cirrhosis, alcoholic: Clinically and radiographically stable at this time (4) Pancreatitis: CT of abdomen pelvis suggests a heterogeneity pancreatic tail with surrounding peripancreatic edema which is similar to prior study of 07/10/2019 which could be due to acute pancreatitis, however, an underlying pancreatic mass calls have a similar appearance. - no pancreatic symptoms, lipase was wnl down from previous admission 3568 on 06/13/2019. - will need follow up dedicated pancreatic MRI (5) Hypertension: Continue amlodipine 5 mg every morning, lisinopril 20 mg every morning and propranolol 40 mg p.o. twice daily (6) Diabetes mellitus, type 2: Hold metformin. Continue Accu-Cheks before meals and at bedtime with NovoLog coverage per scale (7) History of prostate cancer: Being followed in the outpatient setting (8) GERD (gastroesophageal reflux disease): Continue pantoprazole 40 mg p.o. twice daily (9) Esophageal stricture: Continues on pantoprazole 40 mg p.o. twice daily as noted above (10) Lumbar disc herniation: Continue with [place] twice daily and prn , and gabapentin 400 mg at bedtime. (11) Depression: Continue venlafaxine ER 150 mg daily, and venlafaxine 75 mg every morning. (12) DVT prophylaxis: heparin subq Supervising Physician Co-Signing Physician Notes I examined and seen patient with IRISH Maciel and agree with assessment and plan. Subjective Mr. Huggins is feeling a bit dizzy today when he stands up. He notes that his gate has been increasingly unsteady recently. ROS Constitutional: no chills, aches, sweats or fever Respiratory: no sob,cough, sputum, or wheezing Cardiac: no chest pain, palpitations, edema, orthopnea GI: no abdominal pain, nausea, vomiting, diarrhea or constipation : no dysuria or hesitancy Extremities: no joint pain or weakness Skin: no rash All other systems reviewed and negative Review of Systems Review of Systems: All systems reviewed & are unremarkable except as noted in HPI & below Physical Exam Physical Exam: General: no distress Eyes: normal inspection, PERLL Respiratory: chest non tender, clear to auscultation, normal breath sounds, no respiratory distress, no accessory muscle use Cardiac: regular rate and rhythm, no rub or gallop, systolic murmur, no edema, no jvd GI/: active bowel sounds, no abd pain or tenderness, soft, non distended Extremities: normal range of motion, normal strength, non tender Neuro/Psych: alert and oriented x 3, normal mood and affect Skin: normal color, dry, no erythema or induration over scrotum Results & Data Vital Signs (Past 12 Hours) Vital Signs Temp Pulse Resp BP Pulse Ox 08/10/19 15:32 36.7 C 57 L 16 133/77 95 08/10/19 07:32 36.8 C 63 16 138/70 96 PG Care Time/CCT Total # of Minutes Spent Total Time Spent with Patient: Total time spent is greater than 50% in coordination of care (as documented) at patient's floor/unit and/or counseling patient: (1) Pancreatitis Acute pancreatitis complication: unspecified Chronicity: acute Pancreatitis type: unspecified pancreatitis type Qualified Code(s): K85.90 - Acute pancreatitis without necrosis or infection, unspecified
[2019-08-10 17:19] LABS: Basophils # (auto) 0.02 K/uL (0-0.2); Basophils % (auto) 0.4 %; Eosinophils # (auto) 0.03 K/uL (0-0.5); Eosinophils % (auto) 0.6 %; Hematocrit (blood only) 30.7 % (42-52); Hemoglobin 10.2 g/dL (14.0-18.0); Lymphocytes # (auto) 2.17 K/uL (1.2-3.4); Lymphocytes % (auto) 43.4 %; Mean Corpuscular Hemoglobin 28.4 pg (25-34); Mean Corpuscular Hgb Conc 33.2 g/dL (32-36); Mean Corpuscular Volume 85.5 fL (80-100); Mean Platelet Volume 9.4 fL (7.4-10.4); Monocytes # (auto) 0.48 K/uL (0.11-0.59); Monocytes % (auto) 9.6 %; Platelet Count 148 K/uL (130-400); RDW Coefficient of Variation 15.7 % (11.5-14.5); RDW Standard Deviation 49.6 fL (36.4-46.3); Red Blood Count 3.59 M/uL (4.7-6.1)
[2019-08-10 17:42] LABS: Albumin Level 2.6 gm/dl (3.4-5.0); BUN Creatinine Ratio 9.2 (10-20); Calcium 8.5 mg/dl (8.5-10.1); Creatinine Clr Calc Pharmacy 101.5 ml/min; Est GFR (African American) 114.8; Potassium 3.6 mmol/L (3.5-5.1)
[2019-08-10 17:47] LABS: Albumin Globulin Ratio 0.6 (0.9-2); Bilirubin,Total 1.1 mg/dl (0.2-1); Globulin 4.1 gm/dl (2.5-4.0); Total Protein 6.7 gm/dl (6.4-8.2)
[2019-08-10] MEDS ORDERED: cefTRIAXone SODIUM 2,000 MG in DEXTROSE 5% 50 ML IV SCH (20:00)
[2019-08-10] MEDS: ATORVASTATIN 40 MG TAB PO SCH (21:57)
[2019-08-10] MEDS: GABAPENTIN 400 MG CAP PO SCH (21:57)
[2019-08-10] MEDS: HYDROCODONE/ACETAMINOPHEN 10/325 TAB PO PRN (23:44)
[2019-08-11 05:32] LABS: Hematocrit (blood only) 29.4 % (42-52); Hemoglobin 9.5 g/dL (14.0-18.0); Mean Corpuscular Hemoglobin 27.9 pg (25-34); Mean Corpuscular Hgb Conc 32.3 g/dL (32-36); Mean Corpuscular Volume 86.5 fL (80-100); Mean Platelet Volume 10.1 fL (7.4-10.4); Platelet Count 144 K/uL (130-400); RDW Coefficient of Variation 15.5 % (11.5-14.5); RDW Standard Deviation 49.5 fL (36.4-46.3); White Blood Count 4.27 K/uL (4.8-10.8)
[2019-08-11 06:09] LABS: Albumin Level 2.1 gm/dl (3.4-5.0); BUN Creatinine Ratio 10.5 (10-20); Calcium 8.1 mg/dl (8.5-10.1); Creatinine Clr Calc Pharmacy 86.3 ml/min; Est GFR (African American) 107.4; Est GFR (Non-African American) 92.7; Potassium 3.4 mmol/L (3.5-5.1)
[2019-08-11 06:11] LABS: Albumin Globulin Ratio 0.5 (0.9-2); Bilirubin,Total 0.9 mg/dl (0.2-1); Globulin 4.1 gm/dl (2.5-4.0); Total Protein 6.2 gm/dl (6.4-8.2)
[2019-08-11] MEDS: INSULIN ASPART 100 UNITS/ML 3 ML PEN SC SCH ×2 (08:44→14:02)
[2019-08-11] MEDS: HEPARIN SOD 5,000 UNIT/0.5 ML VIAL SQ SCH (08:45)
[2019-08-11] MEDS: VENLAFAXINE HCL XR 150 MG CAPXR PO SCH (08:45)
[2019-08-11] MEDS: VENLAFAXINE HCL XR 75 MG CAPXR PO SCH (08:45)
[2019-08-11] MEDS: PROPRANOLOL HCL 20 MG TAB PO SCH (08:46)
[2019-08-11] MEDS: PANTOprazole 40 MG TAB PO SCH (08:46)
[2019-08-11] MEDS: AMLODIPINE BESYLATE 5 MG TAB PO SCH (08:46)
[2019-08-11] MEDS: LISINOPRIL 20 MG TAB PO SCH (08:47)
[2019-08-11] MEDS: HYDROCODONE/ACETAMINOPHEN 10/325 TAB PO SCH (08:50)
--- NOTE | 2019-08-11 11:05 | Urology Consultation ---
Date of Consultation August 11, 2019 Assessment & Plan (1) Epididymitis, right: Right inguinal and testicular pain. Small right inguinal hernia, small right hydrocele, high-riding right testicle. Will check PSA as patient is s/p radical prostatectomy. Continue antibiotics, supportive care. Will arrange outpatient URO follow up. Would consider outpatient general surgery referral re: inguinal hernia. Thank you for allowing us to participate in the inpatient care of Mr. Huggins. Please contact our service if we can assist further during hospitalization. (2) Inguinal hernia, right: (3) Hydrocele: History of Present Illness Attending Physician: Galdino Orr MD History of Present Illness 79 YO male seen this morning in consultation due to right testicular pain. Patient reports that this has been an ongoing issue x 1 month. Was seen by PCP and had normal testicular US. He then reported to the ER for this issue on 08/08 - CT scan was completed and without abnormality, scrotal US again WNL. Patient then admitted for this same issue last night. Remains on empiric antibiotics for right epididymitis. Patient is understandably frustrated with his ongoing discomfort. Pain is described as right > left, begins in right inguinal area and extends to right testicle. Improved with supportive medications and rest. Worsened by physical activity. No fevers/chills. No nausea/vomiting. Patient reports radical prostatectomy 10+ years ago, is [facility] Allergies Allergy/AdvReac Type Severity Reaction Status Date / Time No Known Allergies Allergy Verified 08/08/19 21:41 Home Medications Home Medications Medication Instructions Recorded Confirmed Type hydrocodone-acetaminophen 1 tab PO AMHS 06/07/18 08/08/19 History propranolol 40 mg tablet 40 mg PO BID 30 Days #60 tab 03/08/19 08/08/19 Rx venlafaxine ER 150 mg 150 mg PO QAM #30 tab 03/08/19 08/08/19 Rx capsule,extended release 24 hr gabapentin 400 mg capsule 400 mg PO HS cap 06/09/19 08/08/19 History lisinopril 20 mg tablet 10 mg PO QAM tab 06/09/19 08/08/19 History atorvastatin 80 mg PO HS 06/13/19 08/08/19 History metformin 1,000 mg PO BID 06/13/19 08/08/19 History omega-3 fatty acids [Fish Oil 1,000 mg PO QAM 06/13/19 08/08/19 History Concentrate] pantoprazole 40 mg PO BID 06/13/19 08/08/19 History amlodipine 5 mg PO QAM 08/08/19 08/08/19 History venlafaxine 75 mg PO QAM 08/08/19 08/08/19 History Patient History Medical History Microscopic hematuria Hypertension Depression Diabetes mellitus, type 2 GERD (gastroesophageal reflux disease) Chronic back pain CHRONIC NECK PAIN, NORMAL ROM History of prostate cancer s/p prostatectomy in 1998, no chemo/no radiation Liver cirrhosis, alcoholic Lumbar disc herniation Gastric polyps Hiatal hernia Anemia Arthritis Cervical spondylosis without myelopathy Chronic gastric ulcer Esophageal varices Fatty liver Hypercholesterolemia Lumbar canal stenosis Restless legs syndrome Thrombocytopenia Pancreatitis (Resolved) 12/2016 Lumbar stenosis Surgical History History of colonoscopy History of cystoscopy D/T INCONTINENCE History of esophagogastroduodenoscopy (EGD) History of laminectomy X2 History of prostatectomy History of tooth extraction Family History Sister Family history of diabetes mellitus Mother Colorectal cancer Brother Prostate cancer Father No problems noted. Son Thyroid disease Social History Preferred Language: Greek Communication Ability: Effective Visual Impairment: No Limitations Hearing Ability: Normal Technical Director Required: No Beliefs That Will Affect Care: None marital status: Current Living Situation: Spouse current occupational status: retired Feels Safe at Home: Yes Smoking Status: Never smoker Tobacco Type: smokeless tobacco ; Age Quit Using Tobacco: 42 ; Second Hand Exposure: No ; Hx Alcohol Use: No Hx Substance Use: No Childhood Exposure to Second-Hand Smoke: No Other Diet Comment: regular caffeine: No during the past year weight has: decreased > 10 lbs Dental Care, Regularly: Yes Physical Activity Frequency: Does not Exercise Physical Activity Frequency Comment: limited by physical condition Seatbelt Use: always Sunscreen Use: No Review of Systems Review of Systems: Per HPI. Physical Exam Physical Exam: WN/WD NAD. Resp effort normal. No JVD. Abd soft/nontender. : grossly normal phallus; left testicle WNL; right testicle +high riding +small hydrocele; scrotum appears grossly normal without swelling; +small right reducible inguinal hernia. A&Ox3, appropriate affect. Results & Data Vital Signs (Past 12 Hours) Vital Signs Temp Pulse Resp BP BP Pulse Ox 08/11/19 07:07 36.5 C 59 L 16 128/74 98 08/10/19 23:14 36.9 C 66 16 120/71 94 PG Care Time/CCT Total # of Minutes Spent Total Time Spent with Patient: Total time spent is greater than 50% in coordination of care (as documented) at patient's floor/unit and/or counseling patient: (1) Hydrocele Hydrocele type: unspecified Qualified Code(s): N43.3 - Hydrocele, unspecified
--- NOTE | 2019-08-11 13:10 | Discharge Summary ---
Date of Service August 11, 2019 Admission HPI Per Admitting Provider The patient is a 79-year-old male with a past medical history including prostate cancer/diabetes mellitus/GERD/alcoholic liver cirrhosis/esophageal stricture/anemia/esophageal varices/fatty liver/hypercholesterolemia/lumbar spine stenosis/restless leg syndrome and thrombocytopenia who presents to the emergency department with persistent severe right groin and right testicular pain over the past 24 hours. Principal Diagnosis Epididymitis Discharge Exam Constitutional WD/WN, vitals as above Respiratory normal respiratory effort, lungs clear to auscultation Cardiovascular RRR, no murmur, no edema Gastrointestinal (Abdomen) Inspection/Auscultation: abdomen normal to inspection and normal bowel sounds; abdomen not distended Percussion/Palpation: abdomen soft; abdomen nontender Musculoskeletal right elbow mild bursitis, normal strength bilaterally Skin no rashes, warm and dry Neurologic moves all extremities and awake Psychiatric A+Ox3, euthymic affect Discharge Data Allergies Allergy/AdvReac Type Severity Reaction Status Date / Time No Known Allergies Allergy Verified 08/08/19 21:41 Consultations 08/08/19 20:48 ED Decision to Admit Stat 08/10/19 16:39 Consult Urology Routine Ordered Studies 08/08/19 18:50 CT abd pelvis IV con only Stat 08/08/19 20:50 US scrotum/testicle Stat 08/10/19 09:32 US scrotum/testicle Routine Hospital Course (1) Epididymitis, right: Ceftriaxone 1 g IV daily - will discharge with po Bactrim for a total of 10 day regimen repeated US due to increased pain - no torsion, borderline spermatic cord thickening BC ngtc Lactic acid was 5.6 on admission and trended down Consult urology - patient to follow up outpatient, they recommend outpatient follow up with general surgery concerning inguinal hernia (2) Inguinal hernia, right: Right inguinal hernia/high riding right testicle as noted on previous ultrasound. No incarceration on CT - partially reducible Repeat ultrasound did not discuss hernia (3) Liver cirrhosis, alcoholic: Clinically and radiographically stable at this time (4) Pancreatitis: CT of abdomen pelvis suggests a heterogeneity pancreatic tail with surrounding peripancreatic edema which is similar to prior study of 07/10/2019 which could be due to acute pancreatitis, however, an underlying pancreatic mass calls have a similar appearance. - no pancreatic symptoms, lipase was wnl down from previous admission 3568 on 06/13/2019. - will need follow up dedicated pancreatic MRI (5) Hypertension: Continue amlodipine 5 mg every morning, lisinopril 20 mg every morning and propranolol 40 mg p.o. twice daily (6) Diabetes mellitus, type 2: Resume metformin at discharge Continue Accu-Cheks before meals and at bedtime with NovoLog coverage per scale (7) History of prostate cancer: Being followed in the outpatient setting Patient to follow up with urology (8) GERD (gastroesophageal reflux disease): Continue pantoprazole 40 mg p.o. twice daily (9) Esophageal stricture: Continues on pantoprazole 40 mg p.o. twice daily as noted above (10) Lumbar disc herniation: Continue with [place] twice daily and prn , and gabapentin 400 mg at bedtime. (11) Depression: Continue venlafaxine ER 150 mg daily, and venlafaxine 75 mg every morning. (12) Bursitis: Patient previously treated for right elbow bursitis last month He did have recent fall where he came down on that elbow Some erythema with mild edema and pain at admission that has resolved with ceftriaxone administration Xray elbow without fracture Bactrim should cover if elbow was septic - total of 10 day antibiotic regimen (13) Anemia: Hgb was 13 in June, now around 10 - stable No s/s of bleeding Folic acid, b12, iron panel ordered - patient will follow up with pcp concerning results (14) DVT prophylaxis: heparin subq Total Time Total Time Spent Total Time Spent (In Minutes): greater than 30 minutes Discharge Plan Discharge Items Patient Disposition: Home - Self-Care Reason For Visit: PAINFUL RIGHT INGUINAL HERNIA Discharge Diagnosis: Epididymitis, right inguinal hernia Activity: Resume your previous activity Non-emergency contact: Primary Care Provider Call non-emergency contact if: you have any medication questions, your symptoms worsen and you have a fever Follow-up/Referrals: Karley Branch DO [Primary Care Provider] - 08/16/19 10:10 am (Please, follow up at Dr. Branch's office with her associate, Loyda Shahid PA-C, on WednesdayAugust 16 at 10:10 am. *If you need to change this appointment, call their office at [phone].) Mary Ontiveros CRNP [Nurse Practitioner] - Diet: Carb Consistent or DM2 Addtl Attending Provider Instructions: Please follow up with urology and general surgery as well as your primary care provider. You will need a follow up dedicated pancreatic MRI. Please arrange this with your primary care provider You were anemic while here. As we discussed, you should let your doctor know if you are seeing dark, tarry stools or blood in your urine or stool. Blood work was taken to assess for reasons for anemia. Please follow up on this workup with your primary care provider Your blood pressure decreased when you came to standing (orthostasis). Change positions slowly, moving from laying then sitting then standing. Support hose can also help with this Pending Studies at Discharge: Yes Studies:: B12, Folate, iron panel Stand-Alone Forms: [facility], Smoking Cessation Medications and DC Order Prescriptions: New sulfamethoxazole-trimethoprim [Bactrim DS] 800-160 mg tablet 1 tab PO BID 7 Days Qty: 14 RF: 0 Continued lisinopril 20 mg tablet 10 mg PO QAM RF: 0 propranolol 40 mg tablet 40 mg PO BID 30 Days Qty: 60 RF: 0 venlafaxine 150 mg capsule,extended release 24hr 150 mg PO QAM Qty: 30 RF: 0 gabapentin 400 mg capsule 400 mg PO HS RF: 0 atorvastatin 80 mg tablet 80 mg PO HS RF: 0 omega-3 fatty acids [Fish Oil Concentrate] 1,000 mg capsule 1,000 mg PO QAM RF: 0 pantoprazole 40 mg tablet,delayed release (DR/EC) 40 mg PO BID RF: 0 metformin 1,000 mg tablet 1,000 mg PO BID RF: 0 hydrocodone-acetaminophen 10-325 mg Tablet 1 tab PO AMHS RF: 0 venlafaxine 75 mg capsule,extended release 24hr 75 mg PO QAM RF: 0 amlodipine 5 mg tablet 5 mg PO QAM RF: 0 Discharge Orders: Discharge Order (Routine); Ordered 08/11/19 Ordered By: Laure Arciniega Admission Data Admit Date/Time: 08/08/19 22:46 Attending Provider: Galdino Orr Admit Provider: Lon Pace Primary Care Provider: Karley Branch Other Providers: Magdi Gutierrez ; Galdino Orr
[2019-08-11 13:21] LABS: Iron 47 mcg/dl (35-175); Prostate Specific Antigen < 0.010 ng/ml (0-4); Total Iron Binding Capacity 220 mcg/dl (250-450); Transferrin 186 mg/dl (200-360)
== END 2019-08-11 15:30 | disposition home or self-care (01) | DRG 727 ==
LOC: ED 18:14 → SUATTDRO 22:46 → 3W 22:46

== ENCOUNTER 2019-12-11 15:10 | Inpatient (IN) ==
[2019-12-11 16:40] LABS: Basophils # (auto) 0.02 K/uL (0-0.2); Basophils % (auto) 0.4 %; Eosinophils # (auto) 0.07 K/uL (0-0.5); Eosinophils % (auto) 1.3 %; Hematocrit (blood only) 34.4 % (42-52); Hemoglobin 10.5 g/dL (14.0-18.0); Lymphocytes # (auto) 1.93 K/uL (1.2-3.4); Lymphocytes % (auto) 36.3 %; Mean Corpuscular Hemoglobin 23.9 pg (25-34); Mean Corpuscular Hgb Conc 30.5 g/dL (32-36); Mean Corpuscular Volume 78.4 fL (80-100); Mean Platelet Volume 9.9 fL (7.4-10.4); Monocytes # (auto) 0.42 K/uL (0.11-0.59); Monocytes % (auto) 7.9 %; Neutrophils # (auto) 2.88 K/uL (1.4-6.5); Neutrophils % (auto) 54.1 %; Platelet Count 155 K/uL (130-400); RDW Coefficient of Variation 17.6 % (11.5-14.5); RDW Standard Deviation 49.7 fL (36.4-46.3); Red Blood Count 4.39 M/uL (4.7-6.1); White Blood Count 5.32 K/uL (4.8-10.8)
[2019-12-11 17:04] LABS: Alanine Aminotransferase 35 U/L (12-78); Albumin Globulin Ratio 0.7 (0.9-2); Albumin Level 3.3 gm/dl (3.4-5.0); Alkaline Phosphatase 236 U/L (45-117); Aspartate Aminotransferase 40 U/L (15-37); BUN Creatinine Ratio 9.3 (10-20); Bilirubin,Total 0.8 mg/dl (0.2-1); Blood Urea Nitrogen 8 mg/dl (7-18); Calcium 9.1 mg/dl (8.5-10.1); Carbon Dioxide 27 mmol/L (21-32); Chloride 104 mmol/L (98-107); Est GFR (African American) 97.4; Globulin 4.7 gm/dl (2.5-4.0); Potassium 3.7 mmol/L (3.5-5.1); Sodium 136 mmol/L (136-145)
[2019-12-11 17:18] LABS: Glucose 299 mg/dl (70-99)
[2019-12-11] MEDS ORDERED: OPTIRAY 320 125ml IV PRN (18:04)
[2019-12-11 18:49] LABS: INR 1.2 (0.9-1.1); Partial Thromboplastin Time 27.1 Seconds (21.0-31.0); Prothrombin Time 11.9 Seconds (9.0-12.0)
[2019-12-11 19:03] LABS: Magnesium 1.8 mg/dl (1.8-2.4); Troponin I < 0.015 ng/ml (0-0.045)
--- NOTE | 2019-12-11 19:16 | CT Scan Report ---
CT OF THE HEAD WITHOUT CONTRAST CLINICAL HISTORY: Right leg weakness and numbness. Evaluate for cerebrovascular accident. COMPARISON STUDY: MRI of the brain March 22, 2019. TECHNIQUE: Helical axial images of the head were obtained without IV contrast. Automated exposure con trol was utilized for the study. A dose lowering technique was utilized adhering to the principles o f ALARA. FINDINGS: No acute intracranial hemorrhage, midline shift or mass effect is present. The ventricular system is unremarkable. The basilar cisterns are patent. No extra-axial collections are present. Ther e are no findings to suggest acute dural sinus thrombosis or acute territorial infarct. No significan t calvarial abnormalities are present. Visualized portions of the sinuses and mastoid air cells are c lear. Matter hypodensity suggests small vessel disease. IMPRESSION: No acute intracranial findings. ACT 112: Negative or not required by law. Electronically signed by: Maximiliano Orozco M.D. 12/11/2019 7:15 PM
--- NOTE | 2019-12-11 19:23 | CT Scan Report ---
CT ANGIOGRAPHY OF THE NECK WITH CONTRAST CLINICAL HISTORY: Right leg weakness and numbness. Evaluate for stroke. COMPARISON STUDY: No previous studies for comparison. Technique: CT angiography of the carotid and vertebral arteries was obtained using [employer] 320 IV and 3D reconstruction on an independent workstation. NASCET criteria was utilized. Automated exposure c ontrol was utilized for the study. A dose lowering technique was utilized adhering to the principles of ALARA. Findings: There is severe stenosis at the origin the right vertebral artery. There is moderate plaque within the bilateral carotid bifurcations without stenosis. The left vertebral artery is dominant an d patent. No dissection within the major vessels of the neck. No thrombus is identified. Lung apices are clear. There is no cervical lymphadenopathy. There is no cervical spine fracture. IMPRESSION: 1. Moderate atherosclerotic plaque. No stenosis within the bilateral common carotid and cervical inte rnal carotid arteries. 2. 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 3. No dissection. ACT 112: Negative or not required by law. Electronically signed by: Maximiliano Orozco M.D. 12/11/2019 7:22 PM
--- NOTE | 2019-12-11 19:29 | CT Scan Report ---
CTA ANGIOGRAPHY OF THE HEAD CLINICAL HISTORY: Right leg weakness and numbness. Evaluate for stroke. COMPARISON STUDY: MRI of the brain March 22, 2019. TECHNIQUE: Helical axial images of the head were obtained following uneventful intravenous administr ation of 118 cc of [employer]ir[employer] 320. Sagittal and coronal reconstructions were viewed as well as maximal i ntensity projections on an independent 3-D workstation. Automated exposure control was utilized for the study. A dose lowering technique was utilized adhering to the principles of ALARA. CT DOSE: 1922.13 mGy.cm FINDINGS: Please note that the head CT will be reported separately. No acute intracranial hemorrhage, midline shift or mass effect is present. Ventricular system is normal. Basilar cisterns are patent. There are no extra axial collections. White matter hypodensities favor small vessel disease. No intra cranial mass or pathologic enhancement is identified. The bilateral M1, M2, A1 and A2 segments are pa tent. There is no intracranial aneurysm or abrupt vessel cut off. There is no intraluminal thrombus. The posterior circulation is also intact. IMPRESSION: Unremarkable CTA of the head. ACT 112: Negative or not required by law. Electronically signed by: Maximiliano Orozco M.D. 12/11/2019 7:27 PM
--- NOTE | 2019-12-11 19:35 | CT Scan Report ---
CT lumbar spine wo con CLINICAL HISTORY: Fall. Evaluate for fracture. COMPARISON STUDY: Lumbar spine MRI May 05, 2010. CT of the abdomen and pelvis August 08, 2019. TECHNIQUE: Axial images of the lumbar spine were obtained without IV contrast. Sagittal and coronal r econstructions were viewed. Automated exposure control was utilized for the study. A dose lowering t echnique was utilized adhering to the principles of ALARA. FINDINGS: Patient is status post L4-L5 posterior decompression. There is mild S-shaped curvature of t he lumbar spine. There is no acute fracture. No suspicious osseous lesion is noted. The central canal and neural foramen are suboptimally assessed by CT. Disc space narrowing with vacuum disc phenomenon is noted at L2-L3. Paravertebral soft tissues are unremarkable. There is partial ankylosis of the bi lateral sacroiliac joints. Moderate to severe multilevel degenerative changes within the lumbar spine are noted. IMPRESSION: 1. No acute lumbar spine fracture or subluxation. 2. Status post L4-L5 laminectomies. 3. Moderate to severe multilevel degenerative changes within the lumbar spine. Suboptimal assessment of the central canal and neural foramen given CT technique. ACT 112: Negative or not required by law. Electronically signed by: Maximiliano Orozco M.D. 12/11/2019 7:34 PM
--- NOTE | 2019-12-11 20:20 | Emergency Department Note ---
Entered by Eduardo Guajardo acting as a scribe for History of Present Illness General Chief complaint: Fall Stated complaint: FALL, R LEG IS NUMB Time Seen by Provider: 12/11/19 17:17 Source: patient History of Present Illness Onset (ago): week(s) 2 Location: lower extremity (right) Pain Consistency: + other (persistent) Maximum Pain Intensity: 5 Quality: + other (numbness and weakness) Associated symptoms: + other (Positive for back pain. Negative for right arm numbness and weakness, facial droop, speech changes, vision changes, problems swallowing, CP, SOB, abdominal pain, and vomiting.) The patient is a 79 year old male who presents to the emergency department with complaints of persistent right leg numbness and weakness beginning 2 weeks ago. The patient states that his entire right leg has been numb and weak for the last 2-3 weeks. He notes that he cannot feel his leg at all. He reports that his right arm is not weak or numb. He also complains of worsening back pain beginning 2 weeks ago. He also denies any facial droop, speech changes, vision changes, problems swallowing, CP, SOB, abdominal pain, and vomiting. The patient states that he fell a week ago because his right leg was weak. He notes that he did not hit his head or injury himself at that time. He reports that he then fell again 2 days ago because his right leg was weak. The patient states that he did not injury himself at that time. He notes that he has a history of hyper tension and diabetes, but he reports that he is not on any blood thinners. He has had no fecal incontinence. He does have chronic urinary incontinence and is followed by urology Dr. Gallo. This has not changed recently. Home Medications Home Medications Medication Instructions Recorded Confirmed Type propranolol 40 mg tablet 40 mg PO BID 30 Days #60 tab 03/08/19 12/11/19 Rx gabapentin 400 mg capsule 400 mg PO HS cap 06/09/19 12/11/19 History lisinopril 20 mg tablet 10 mg PO QAM tab 06/09/19 12/11/19 History atorvastatin 80 mg PO HS 06/13/19 12/11/19 History metformin 1,000 mg PO BID 06/13/19 12/11/19 History omega-3 fatty acids [Fish Oil 1,000 mg PO QAM 06/13/19 12/11/19 History Concentrate] pantoprazole 40 mg PO BID 06/13/19 12/11/19 History amlodipine 5 mg PO QAM 08/08/19 12/11/19 History hydrocodone-acetaminophen 1 tab PO BID 08/30/19 12/11/19 History lidocaine 1 patch TOPICAL BID PRN 08/30/19 12/11/19 History ascorbic acid (vitamin C) [Vitamin 250 mg PO QPM 11/21/19 12/11/19 History C] ferrous sulfate [Iron (ferrous 325 mg PO BID 11/21/19 12/11/19 History sulfate)] venlafaxine 225 mg PO QAM 11/21/19 12/11/19 History Allergies Allergy/AdvReac Type Severity Reaction Status Date / Time No Known Allergies Allergy Verified 12/11/19 19:55 Past Med/Surg History Medical History Anemia Anxiety Arthritis Cardiac murmur Cervical spondylosis without myelopathy Chronic back pain CHRONIC NECK PAIN, NORMAL ROM Chronic gastric ulcer Depression Diabetes mellitus, type 2 Esophageal varices Fatty liver Gastric polyps GERD (gastroesophageal reflux disease) Hiatal hernia History of prostate cancer s/p prostatectomy in 1998, no chemo/no radiation Hypercholesterolemia Hypertension Liver cirrhosis, alcoholic Lumbar canal stenosis Lumbar disc herniation Lumbar stenosis Microscopic hematuria Pancreatitis (Resolved) 12/2016 Restless legs syndrome Thrombocytopenia F/U PCP Surgical History History of colonoscopy History of cystoscopy D/T INCONTINENCE History of esophagogastroduodenoscopy (EGD) History of laminectomy X2 History of prostatectomy History of right inguinal hernia repair History of tooth extraction Family History Sister Family history of diabetes mellitus Mother Colorectal cancer Brother Prostate cancer Colorectal cancer Father No problems noted. Son Thyroid disease Mother Family history of diabetes mellitus Sister Family history of diabetes mellitus Sister Family history of diabetes mellitus Other No family history of adverse response to anesthesia Social History Preferred Language: Turkish Communication Ability: Effective Visual Impairment: No Limitations Hearing Ability: Normal Starch And Prosize Mixer Required: No Beliefs That Will Affect Care: None marital status: Current Living Situation: Spouse current occupational status: retired Other Information That Helps Us Care for You: No Feels Safe at Home: Yes Safety Concerns: Feels Safe At This Time Smoking Status: Never smoker Tobacco Type: smokeless tobacco ; Age Quit Using Tobacco: 42 ; Do You Dip or Chew Tobacco: Yes (quit age 42) ; Second Hand Exposure: No ; Hx Alcohol Use: Yes Alcohol type: beer Alcohol Intake Frequency: Daily Hx Substance Use: No Childhood Exposure to Second-Hand Smoke: No Diet Comment: regular caffeine: No during the past year weight has: decreased > 10 lbs Dental Care, Regularly: Yes Physical Activity Frequency: Does not Exercise Physical Activity Frequency Comment: limited by physical condition Seatbelt Use: always Sunscreen Use: No Review of Systems See HPI for pertinent positives & negatives. and A total of 10 systems reviewed and were otherwise negative Physical Exam Vital Signs Vital Signs - 24 hr 12/11/19 16:03 12/11/19 19:24 12/11/19 21:06 Temperature 37.0 C Temperature Source Oral Pulse Rate 78 Pulse Rate [Bilateral Apical] 79 76 Respiratory Rate 20 20 18 Respiratory Effort / Characteristics Non-Labored Respiratory Depth Normal Blood Pressure 143/79 H Blood Pressure [Left Arm] 156/92 H 160/116 H Blood Pressure Mean 100 Blood Pressure Mean [Left Arm] 113 130 Pulse Oximetry 99 99 98 Oxygen Delivery Method Room Air Room Air Sepsis Recent Fever Within 48 Hours No Sepsis Action Taken by Nursing No Action Required 12/11/19 21:19 Temperature Temperature Source Pulse Rate Pulse Rate [Bilateral Apical] 73 Respiratory Rate 20 Respiratory Effort / Characteristics Respiratory Depth Blood Pressure Blood Pressure [Left Arm] 150/85 H Blood Pressure Mean Blood Pressure Mean [Left Arm] 106 Pulse Oximetry 98 Oxygen Delivery Method Room Air Sepsis Recent Fever Within 48 Hours Sepsis Action Taken by Nursing Constitutional: Vital signs reviewed. Eyes: Pupils are equal round reactive to light. Conjunctiva are noninjected. ENT: Pharynx is clear without erythema or exudate. Mucous membranes are moist. Neck supple without meningeal signs. Respiratory: Clear to auscultation bilaterally. Breath sounds are equal bilaterally. Cardiovascular: Regular rate and rhythm. No rubs or gallops. GI: Soft, nondistended and nontender. Bowel sounds are present. Musculoskeletal: No peripheral edema. No lower extremity tenderness. Integumentary: No cyanosis. Neurological: The patient is awake and alert. Cranial nerves II-XII are intact. Sensation is intact to light touch all extremities. Normal speech. No pronator drift. No limb ataxia. Right leg strength is 3/5 with numbness throughout entire leg, hyporeflexive bilaterally, no saddle anesthesia. Psychiatric: Normal affect. Course Course 1719: The patient was evaluated in room A2. A complete history and physical exam was performed. 1825: I rechecked the patient. He states that he has chronic urinary incontinence and is followed by urology. He notes that he does not have any fecal incontinence. 2023: I reevaluated and updated the patient. He is agreeable to hospitalization for MRI and further testing. 2052: Dr. Pace - Hospitalist, [facility] [place], was made aware of the patient. The patient will be evaluated for further management and care. 2112: The patient requested something for claustrophobia in MRI. Administered Medications Gadobutrol (Gadavist 65ml) 7.5 ml IV ONCE PRN PRN Reason: Interaction Checking Stop: 12/15/19 22:08 Last Admin: 12/11/19 22:10 Dose: 7.5 ml Documented by: [id number] Ioversol (Optiray 320 125ml) 118 ml IV ONCE PRN PRN Reason: Interaction Checking Stop: 12/15/19 18:03 Last Admin: 12/11/19 18:04 Dose: 1 ml Documented by: [id number] Discontinued Medications Lorazepam (Ativan) 1 mg SL NOW STA Stop: 12/11/19 20:57 Last Admin: 12/11/19 21:33 Dose: 1 mg Documented by: [id number] Medical Decision Making Differential Diagnosis Differential diagnoses include: CVA, ICH, intracranial mass, lumbar compression fracture, and cauda equina syndrome. Medical Records Attestation: I reviewed the patient's medical records. I did perform a limited focused review of portions of the patient's old chart on the electronic medical record. The patient had an MRI abdomen and pelvis in 08/2019. This MRI showed prominent degenerative disc changes at the left side of the L2-L3. The MRI also showed lumbar scoliosis. Home Medications Current Medication List: was personally reviewed by me Laboratory Data Attestation: I reviewed the patient's lab results. Result diagrams: 12/11/19 16:28 12/11/19 16:28 Lab Results 12/11/19 12/11/19 12/11/19 Range/Units 16:28 16:28 17:58 WBC 5.32 (4.8-10.8) K/uL RBC 4.39 L (4.7-6.1) M/uL Hgb 10.5 L (14.0-18.0) g/dL Hct 34.4 L (42-52) % MCV 78.4 L (80-100) fL MCH 23.9 L (25-34) pg MCHC 30.5 L (32-36) g/dL RDW Std Deviation 49.7 H (36.4-46.3) fL RDW Coeff of Elliot 17.6 H (11.5-14.5) % Plt Count 155 (130-400) K/uL MPV 9.9 (7.4-10.4) fL Immature Gran % (Auto) 0.0 % Neut % (Auto) 54.1 % Lymph % (Auto) 36.3 % Imperial % (Auto) 7.9 % Eos % (Auto) 1.3 % Baso % (Auto) 0.4 % Immature Gran # (Auto) 0.00 (0.00-0.02) K/uL Neut # (Auto) 2.88 (1.4-6.5) K/uL Lymph # (Auto) 1.93 (1.2-3.4) K/uL Imperial # (Auto) 0.42 (0.11-0.59) K/uL Eos # (Auto) 0.07 (0-0.5) K/uL Baso # (Auto) 0.02 (0-0.2) K/uL PT (9.0-12.0) Seconds INR (0.9-1.1) APTT (21.0-31.0) Seconds PTT Ratio Sodium 136 (136-145) mmol/L Potassium 3.7 (3.5-5.1) mmol/L Chloride 104 (98-107) mmol/L Carbon Dioxide 27 (21-32) mmol/L Anion Gap 5.0 (3-11) BUN 8 (7-18) mg/dl Creatinine 0.85 (0.6-1.4) mg/dl Est Cr Clr Drug Dosing Not Reportable Est GFR ( Amer) 97.4 Est GFR (Non-Af Amer) 84.0 BUN/Creatinine Ratio 9.3 L (10-20) Glucose 299 H (70-99) mg/dl POC Glucose 268 H (70-99) mg/dl Calcium 9.1 (8.5-10.1) mg/dl Magnesium (1.8-2.4) mg/dl Total Bilirubin 0.8 (0.2-1) mg/dl AST 40 H (15-37) U/L ALT 35 (12-78) U/L Alkaline Phosphatase 236 H (45-117) U/L Troponin I (0-0.045) ng/ml Total Protein 8.0 (6.4-8.2) gm/dl Albumin 3.3 L (3.4-5.0) gm/dl Globulin 4.7 H (2.5-4.0) gm/dl Albumin/Globulin Ratio 0.7 L (0.9-2) 12/11/19 12/11/19 Range/Units 18:26 18:26 WBC (4.8-10.8) K/uL RBC (4.7-6.1) M/uL Hgb (14.0-18.0) g/dL Hct (42-52) % MCV (80-100) fL MCH (25-34) pg MCHC (32-36) g/dL RDW Std Deviation (36.4-46.3) fL RDW Coeff of Elliot (11.5-14.5) % Plt Count (130-400) K/uL MPV (7.4-10.4) fL Immature Gran % (Auto) % Neut % (Auto) % Lymph % (Auto) % Imperial % (Auto) % Eos % (Auto) % Baso % (Auto) % Immature Gran # (Auto) (0.00-0.02) K/uL Neut # (Auto) (1.4-6.5) K/uL Lymph # (Auto) (1.2-3.4) K/uL Imperial # (Auto) (0.11-0.59) K/uL Eos # (Auto) (0-0.5) K/uL Baso # (Auto) (0-0.2) K/uL PT 11.9 (9.0-12.0) Seconds INR 1.2 H (0.9-1.1) APTT 27.1 (21.0-31.0) Seconds PTT Ratio 1.0 Sodium (136-145) mmol/L Potassium (3.5-5.1) mmol/L Chloride (98-107) mmol/L Carbon Dioxide (21-32) mmol/L Anion Gap (3-11) BUN (7-18) mg/dl Creatinine (0.6-1.4) mg/dl Est Cr Clr Drug Dosing Est GFR ( Amer) Est GFR (Non-Af Amer) BUN/Creatinine Ratio (10-20) Glucose (70-99) mg/dl POC Glucose (70-99) mg/dl Calcium (8.5-10.1) mg/dl Magnesium 1.8 (1.8-2.4) mg/dl Total Bilirubin (0.2-1) mg/dl AST (15-37) U/L ALT (12-78) U/L Alkaline Phosphatase (45-117) U/L Troponin I < 0.015 (0-0.045) ng/ml Total Protein (6.4-8.2) gm/dl Albumin (3.4-5.0) gm/dl Globulin (2.5-4.0) gm/dl Albumin/Globulin Ratio (0.9-2) Imaging Data Radiologist's Impression: Radiology results as stated below per my review and t he radiologist's interpretation: CT lumbar spine wo con CLINICAL HISTORY: Fall. Evaluate for fracture. COMPARISON STUDY: Lumbar spine MRI May 05, 2010. CT of the abdomen and pelvis August 08, 2019. TECHNIQUE: Axial images of the lumbar spine were obtained without IV contrast. Sagittal and coronal reconstructions were viewed. Automated exposure control was utilized for the study. A dose lowering technique was utilized adhering to the principles of ALARA. FINDINGS: Patient is status post L4-L5 posterior decompression. There is mild S- shaped curvature of the lumbar spine. There is no acute fracture. No suspicious osseous lesion is noted. The central canal and neural foramen are suboptimally assessed by CT. Disc space narrowing with vacuum disc phenomenon is noted at L2- L3. Paravertebral soft tissues are unremarkable. There is partial ankylosis of the bilateral sacroiliac joints. Moderate to severe multilevel degenerative changes within the lumbar spine are noted. IMPRESSION: 1. No acute lumbar spine fracture or subluxation. 2. Status post L4-L5 laminectomies. 3. Moderate to severe multilevel degenerative changes within the lumbar spine. Suboptimal assessment of the central canal and neural foramen given CT technique. ACT 112: Negative or not required by law. Electronically signed by: Maximiliano Orozco M.D. 12/11/2019 7:[address] OF THE HEAD WITHOUT CONTRAST CLINICAL HISTORY: Right leg weakness and numbness. Evaluate for cerebrovascular accident. COMPARISON STUDY: MRI of the brain March 22, 2019. TECHNIQUE: Helical axial images of the head were obtained without IV contrast. Automated exposure control was utilized for the study. A dose lowering technique was utilized adhering to the principles of ALARA. FINDINGS: No acute intracranial hemorrhage, midline shift or mass effect is present. The ventricular system is unremarkable. The basilar cisterns are patent. No extra-axial collections are present. There are no findings to suggest acute dural sinus thrombosis or acute territorial infarct. No significant calvarial abnormalities are present. Visualized portions of the sinuses and mastoid air cells are clear. Matter hypodensity suggests small vessel disease. IMPRESSION: No acute intracranial findings. ACT 112: Negative or not required by law. Electronically signed by: Maximiliano Orozco M.D. 12/11/2019 7:15 PM CTA ANGIOGRAPHY OF THE HEAD CLINICAL HISTORY: Right leg weakness and numbness. Evaluate for stroke. COMPARISON STUDY: MRI of the brain March 22, 2019. TECHNIQUE: Helical axial images of the head were obtained following uneventful intravenous administration of 118 cc of [employer]ir[employer] 320. Sagittal and coronal reconstructions were viewed as well as maximal intensity projections on an independent 3-D workstation. Automated exposure control was utilized for the study. A dose lowering technique was utilized adhering to the principles of ALARA. CT DOSE: 1922.13 mGy.cm FINDINGS: Please note that the head CT will be reported separately. No acute intracranial hemorrhage, midline shift or mass effect is present. Ventricular system is normal. Basilar cisterns are patent. There are no extra axial collections. White matter hypodensities favor small vessel disease. No intracranial mass or pathologic enhancement is identified. The bilateral M1, M2, A1 and A2 segments are patent. There is no intracranial aneurysm or abrupt vessel cut off. There is no intraluminal thrombus. The posterior circulation is also intact. IMPRESSION: Unremarkable CTA of the head. ACT 112: Negative or not required by law. Electronically signed by: Maximiliano Orozco M.D. 12/11/2019 7:[address] ANGIOGRAPHY OF THE NECK WITH CONTRAST CLINICAL HISTORY: Right leg weakness and numbness. Evaluate for stroke. COMPARISON STUDY: No previous studies for comparison. Technique: CT angiography of the carotid and vertebral arteries was obtained using [employer] 320 IV and 3D reconstruction on an independent workstation. NASCET criteria was utilized. Automated exposure control was utilized for the study. A dose lowering technique was utilized adhering to the principles of ALARA. Findings: There is severe stenosis at the origin the right vertebral artery. There is moderate plaque within the bilateral carotid bifurcations without stenosis. The left vertebral artery is dominant and patent. No dissection within the major vessels of the neck. No thrombus is identified. Lung apices are clear. There is no cervical lymphadenopathy. There is no cervical spine fracture. IMPRESSION: 1. Moderate atherosclerotic plaque. No stenosis within the bilateral common carotid and cervical internal carotid arteries. 2. 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 3. No dissection. ACT 112: Negative or not required by law. Electronically signed by: Maximiliano Orozco M.D. 12/11/2019 7:22 PM MRI OF THE LUMBAR SPINE WITHOUT CONTRAST CLINICAL HISTORY: Right leg weakness and numbness. COMPARISON STUDY: MRI of the lumbar spine May 05, 2010 and November 02, 2016. CT of the lumbar spine December 11, 2019. TECHNIQUE: Utilizing a 1.5 Ashlyn magnet and dedicated coil, multiplanar, multiecho imaging of the lumbar spine was performed without IV contrast. FINDINGS: For purposes of numbering on this exam, the L5-S1 disc space is assigned to axial image 23 of 25. Vertebral body heights are maintained. There is no suspicious marrow replacement. Discogenic changes at the L2-L3 level have developed since prior MRI of November 02, 2016. There is mild S-shaped curvature of the lumbar spine. There is no intracanalicular mass or fluid collection. Paravertebral soft tissues are unremarkable. Conus terminates at the upper L1 le nessa. L4-L5 laminectomies are noted. L1-2: There is mild disc bulge with moderate facet arthrosis. The central canal and neural foramen are patent. L2-3: There is disc space narrowing with disc bulge, ligamentous hypertrophy and facet arthrosis. There is severe narrowing of the central canal which has progressed since MRI of November 02, 2016. Facet arthrosis is present. A superimposed left foraminal disc protrusion is noted. There is severe narrowing of the left neural foramen. There is mild narrowing of the right neural foramen. L3-4: Posterior decompression is noted. There is disc space narrowing with disc bulge. Mild central canal narrowing is noted. There is mild narrowing of the left neural foramen. There is severe narrowing of the right neural foramen predominantly due to facet arthrosis. L4-5: Posterior decompression is noted. There is disc space narrowing with disc bulge. Central canal is patent. Moderate left and severe right neural foraminal stenosis is noted, probably due to facet arthrosis. L5-S1: There is disc space narrowing with disc bulge. There is facet arthrosis. Central canal is patent. There is mild right and moderate left neural foraminal stenosis. IMPRESSION: 1. Status post L4-L5 laminectomies. 2. Severe central canal stenosis at L2-L3 due to disc bulge, ligamentous hypertrophy and facet arthrosis. 3. Severe multilevel neural foraminal stenosis, including severe stenosis of the right L3-L4 and L4-L5 neural foramen, as described above. 4. Left paracentral disc protrusion at L2-L3 which results in severe narrowing of the left neural foramen at this level. ACT 112: Negative or not required by law. Electronically signed by: Maximiliano Orozco M.D. 12/11/2019 10:14 PM ECG Data Attestation: I personally reviewed and interpreted this ECG as follows: Indication: + other (stroke-like symptoms) Rate (beats per minute): 67 Rhythm: + sinus rhythm ECG ST segments: no ST elevation Comparison ECG Date: from (06/13/2019) Change: no significant change Additional Comments: Baseline limiting interpretation. Prolonged QT. Blood Pressure Blood Pressure Findings: Elevated blood pressure Blood Pressure Disposition: further management by hospitalist [facility] Narrative I did evaluate the patient as noted above. The patient is presenting with right leg weakness and numbness for the past 2 weeks. He has had 2 falls in the past week because of these symptoms. He walks with a walker because he has chronic knee problems. On exam he does have weakness and numbness to the right leg. He does have a history of chronic back pain which got worse after falling 2 days ago. He has no prior history of stroke. IV access was established. The patient was placed on a continuous cardiac monitor technician. I did order and personally review t he patient's 12-lead EKG as described above. He has no evidence of acute ischemia. 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 I did order and review the patient's blood work as noted in the electronic medical record. His lab work is remarkable for chronic anemia as well as hyperglycemia. Otherwise his labs do not show any significant abnormalities. I did order a CT of the head and lumbar spine as well as CT angiogram of the head and neck. I did review the images myself as well as the radiology report as described above. He has no acute abnormality in the brain. He does have some occlusion to the right vertebral artery but he does not have posterior circulation symptoms. CT of the lumbar spine does not show any acute fracture. He does have degenerative disc disease. I did discuss the test results with the patient. I recommended hospitalization for further care and evaluation as he has been falling several times and he can potentially seriously injure himself should he fall again. I did recommend MRI of the brain and lumbar spine which I ordered and is pending. The case was discussed with the hospitalist and case packer and sealer. An order was placed for continuous cardiac monitoring due to stroke symptoms. The monitor shows a rate of 80 with normal sinus rhythm. Impression & Plan Stroke-like symptoms, Chronic back pain, Anemia, Right leg weakness, Right leg numbness, Hyperglycemia Discharge Plan Visit Data Chief Complaint: Fall Stated Complaint: FALL, R LEG IS NUMB ED Provider: Solo Orellana Discharge Problem: Stroke-like symptoms, Chronic back pain, Anemia, Right leg weakness, Right leg numbness, Hyperglycemia Patient Disposition: Being Evaluated by Hospitalist Forms Stand Alone Forms: My [facility] Prescriptions Prescriptions: No Action lisinopril 20 mg tablet 10 mg PO QAM RF: 0 propranolol 40 mg tablet 40 mg PO BID 30 Days Qty: 60 RF: 0 gabapentin 400 mg capsule 400 mg PO HS RF: 0 atorvastatin 80 mg tablet 80 mg PO HS RF: 0 omega-3 fatty acids [Fish Oil Concentrate] 1,000 mg capsule 1,000 mg PO QAM RF: 0 pantoprazole 40 mg tablet,delayed release (DR/EC) 40 mg PO BID RF: 0 metformin 1,000 mg tablet 1,000 mg PO BID RF: 0 hydrocodone-acetaminophen 10-325 mg Tablet 1 tab PO BID RF: 0 lidocaine 5 % Adhesive Patch,Medicated 1 patch TOPICAL BID PRN (Reason: Pain) RF: 0 amlodipine 5 mg tablet 5 mg PO QAM RF: 0 ferrous sulfate [Iron (ferrous sulfate)] 325 mg (65 mg iron) Tablet 325 mg PO BID RF: 0 venlafaxine 75 mg capsule,extended release 24hr 225 mg PO QAM RF: 0 ascorbic acid (vitamin C) [Vitamin C] 250 mg Tablet 250 mg PO QPM RF: 0 Referrals Referrals: Amy Fowler PA-C [Primary Care Provider] - Discharge Problem: Chronic back pain Qualifiers: Back pain location: back pain in unspecified location Back pain laterality: unspecified Qualified Code(s): M54.9 - Dorsalgia, unspecified Anemia Qualifiers: Anemia type: unspecified type Qualified Code(s): D64.9 - Anemia, unspecified The scribe's documentation has been prepared under my direction and personally reviewed by me in its entirety. I confirm that the note above accurately reflects all work, treatment, procedures, and medical decision making performed by me.
[2019-12-11] MEDS ORDERED: LORazepam 1 MG TAB SL STA (20:56)
--- NOTE | 2019-12-11 21:53 | History & Physical Report ---
Date of Service December 11, 2019 Assessment & Plan (1) Right leg numbness: Right leg numbness/chronic low back pain/history of L4-L5 laminectomies- Developed numbness after 2 recent falls. Main differential for the symptoms is that of injury to his lumbar spine and right lower extremity radiculopathy versus CVA. Symptoms are most consistent with injury related to the lumbar spine. MRIs of the brain and lumbar spine have been ordered. His right upper extremity numbness of the fourth and fifth digits, is likely related to ulnar nerve compression through the ulnar groove Present on Admission?: Yes (2) Chronic back pain: See above Present on Admission?: Yes (3) Hypertension: CAD/hypertension- Continue propranolol, amlodipine, and lisinopril. Present on Admission?: Yes (4) Depression: Continue venlafaxine 225 mg every morning Present on Admission?: Yes (5) Diabetes mellitus, type 2: Hold metformin. Patient Accu-Cheks before meals and at bedtime with NovoLog coverage per scale. Check hemoglobin A1c Present on Admission?: Yes (6) Pancreatic mass: Pancreatic mass/alcoholic liver cirrhosis/esophageal varices/history of GI bleeding/ascites- Continue pantoprazole 40 mg p.o. twice daily, propranolol 40 mg p.o. twice daily. Present on Admission?: Yes (7) GERD (gastroesophageal reflux disease): Continue pantoprazole 40 mg p.o. twice daily Present on Admission?: Yes (8) Hypercholesterolemia: Continue atorvastatin 80 mg at bedtime Present on Admission?: Yes History of Present Illness Chief Complaint: The patient presents to the emergency department after sustaining 2 falls, the first 1 4 days ago and the second 1 prior to arrival today, And since that time has had right leg numbness, and right fourth and fifth fingers numbness Primary Care Provider: Amy Fowler PA-C The patient is a 79-year-old male with a past medical history including hyperglycemia, carpal tunnel syndrome, esophageal stricture, pancreatic mass, hydrocele, right inguinal hernia, inguinal hernia surgery, hypertension, depression, diabetes mellitus type 2, GERD, alcoholic liver cirrhosis, lumbar disc herniation, status post L4-5 laminectomies, esophageal varices, fatty liver, hypercholesterolemia, restless leg syndrome and thrombocytopenia. Patient reports to the emergency department after developing right leg numbness and right fourth and fifth finger numbness after successive falls earlier this week prior to arrival. He denies any lightheadedness or dizziness associate with the falls, and reports that they were purely mechanical falls. Allergies Allergy/AdvReac Type Severity Reaction Status Date / Time No Known Allergies Allergy Verified 12/11/19 19:55 Home Medications Home Medications Medication Instructions Recorded Confirmed Type propranolol 40 mg tablet 40 mg PO BID 30 Days #60 tab 03/08/19 12/11/19 Rx gabapentin 400 mg capsule 400 mg PO HS cap 06/09/19 12/11/19 History lisinopril 20 mg tablet 10 mg PO QAM tab 06/09/19 12/11/19 History atorvastatin 80 mg PO HS 06/13/19 12/11/19 History metformin 1,000 mg PO BID 06/13/19 12/11/19 History omega-3 fatty acids [Fish Oil 1,000 mg PO QAM 06/13/19 12/11/19 History Concentrate] pantoprazole 40 mg PO BID 06/13/19 12/11/19 History amlodipine 5 mg PO QAM 08/08/19 12/11/19 History hydrocodone-acetaminophen 1 tab PO BID 08/30/19 12/11/19 History lidocaine 1 patch TOPICAL BID PRN 08/30/19 12/11/19 History ascorbic acid (vitamin C) [Vitamin 250 mg PO QPM 11/21/19 12/11/19 History C] ferrous sulfate [Iron (ferrous 325 mg PO BID 11/21/19 12/11/19 History sulfate)] venlafaxine 225 mg PO QAM 11/21/19 12/11/19 History Past Med/Surg History Medical History Anemia Anxiety Arthritis Cardiac murmur Cervical spondylosis without myelopathy Chronic back pain CHRONIC NECK PAIN, NORMAL ROM Chronic gastric ulcer Depression Diabetes mellitus, type 2 Esophageal varices Fatty liver Gastric polyps GERD (gastroesophageal reflux disease) Hiatal hernia History of prostate cancer s/p prostatectomy in 1998, no chemo/no radiation Hypercholesterolemia Hypertension Liver cirrhosis, alcoholic Lumbar canal stenosis Lumbar disc herniation Lumbar stenosis Microscopic hematuria Pancreatitis (Resolved) 12/2016 Restless legs syndrome Thrombocytopenia F/U PCP Surgical History History of colonoscopy History of cystoscopy D/T INCONTINENCE History of esophagogastroduodenoscopy (EGD) History of laminectomy X2 History of prostatectomy History of right inguinal hernia repair History of tooth extraction Family History Sister Family history of diabetes mellitus Mother Colorectal cancer Brother Prostate cancer Colorectal cancer Father No problems noted. Son Thyroid disease Mother Family history of diabetes mellitus Sister Family history of diabetes mellitus Sister Family history of diabetes mellitus Other No family history of adverse response to anesthesia Social History Preferred Language: Panamanian Communication Ability: Effective Visual Impairment: No Limitations Hearing Ability: Normal Effervescent Salts Compounder Required: No Beliefs That Will Affect Care: None marital status: Current Living Situation: Spouse current occupational status: retired Other Information That Helps Us Care for You: No Feels Safe at Home: Yes Safety Concerns: Feels Safe At This Time Smoking Status: Never smoker Tobacco Type: smokeless tobacco ; Age Quit Using Tobacco: 42 ; Do You Dip or Chew Tobacco: Yes (quit age 42) ; Second Hand Exposure: No ; Hx Alcohol Use: Yes Alcohol type: beer Alcohol Intake Frequency: Daily Hx Substance Use: No Childhood Exposure to Second-Hand Smoke: No Diet Comment: regular caffeine: No during the past year weight has: decreased > 10 lbs Dental Care, Regularly: Yes Physical Activity Frequency: Does not Exercise Physical Activity Frequency Comment: limited by physical condition Seatbelt Use: always Sunscreen Use: No Review of Systems Review of Systems: The patient denies chest pain, palpitations, shortness of breath, dyspnea on exertion, cough, lower extremity swelling, sore throat, fevers, chills, sweats, vomiting, diarrhea , constipation, abdominal pain, pelvic pain, blood in urine or stool, dysuria, urinary frequency or urgency, lightheadedness, dizziness, headache, memory loss, loss of consciousness, rash, abnormal bruising or bleeding, imbalance, focal or generalized weakness, numbness or tingling in arms or legs, generalized arthralgias or myalgias, back or neck pain, or night sweats. The review of systems is otherwise negative other than for that already noted above, and at least 10 systems have been reviewed. Physical Exam Physical Exam: The patient is awake, alert and oriented 3, well developed and well nourished, normocephalic and atraumatic, lying in bed and in no acute distress. HEENT--PERRL, EOMI, mucous membranes and oropharynx normal. Neck--supple. No JVD. No bruits. Thyroid normal, trachea midline, no adenopathy. Heart--normal S1 and S2. No murmurs, rubs or gallops. Lungs--clear bilaterally, no respiratory distress, no accessory muscle use. Abdomen--normal bowel sounds and soft. Nontender. Nondistended. Extremities--no cyanosis or clubbing. No edema. Dermatologic--normal skin turgor, normal color, no abnormal lymph nodes, no rash. Neurologic--cranial nerves II through XII grossly intact. Decreased sensation right lower extremity. Right upper extremity with reproducible sensation with pressure applied to ulnar groove causing numbness and tingling along fourth and fifth fingers Rheumatologic--normal range of motion. Psychiatric--normal affect. Results & Data Vital Signs (Past 12 Hours) Vital Signs Temp Pulse Pulse Resp BP BP Pulse Ox 12/11/19 21:19 73 20 150/85 H 98 12/11/19 21:06 76 18 160/116 H 98 12/11/19 19:24 79 20 156/92 H 99 12/11/19 16:03 98.6 F 78 20 143/79 H 99 Laboratory Results Laboratory Results WBC 5.32 K/uL (4.8-10.8) 12/11/19 16: RBC 4.39 M/uL (4.7-6.1) L 12/11/19 16:28 Hgb 10.5 g/dL (14.0-18.0) L 12/11/19 16:28 Hct 34.4 % (42-52) L 12/11/19 16:28 MCV 78.4 fL (80-100) L 12/11/19 16:28 MCH 23.9 pg (25-34) L 12/11/19 16:28 MCHC 30.5 g/dL (32-36) L 12/11/19 16:28 RDW Std Deviation 49.7 fL (36.4-46.3) H 12/11/19 16:28 RDW Coeff of Elliot 17.6 % (11.5-14.5) H 12/11/19 16:28 Plt Count 155 K/uL (130-400) 12/11/19 16:28 MPV 9.9 fL (7.4-10.4) 12/11/19 16: Immature Gran % (Auto) 0.0 % 12/11/19 16: Neut % (Auto) 54.1 % 12/11/19 16: Lymph % (Auto) 36.3 % 12/11/19 16: [place] % (Auto) 7.9 % 12/11/19 16: Eos % (Auto) 1.3 % 12/11/19 16: Baso % (Auto) 0.4 % 12/11/19 16: Immature Gran # (Auto) 0.00 K/uL (0.00-0.02) 12/11/19 16: Neut # (Auto) 2.88 K/uL (1.4-6.5) 12/11/19 16: Lymph # (Auto) 1.93 K/uL (1.2-3.4) 12/11/19 16: [place] # (Auto) 0.42 K/uL (0.11-0.59) 12/11/19 16: Eos # (Auto) 0.07 K/uL (0-0.5) 12/11/19 16: Baso # (Auto) 0.02 K/uL (0-0.2) 12/11/19 16: PT 11.9 Seconds (9.0-12.0) 12/11/19 18:26 INR 1.2 (0.9-1.1) H 12/11/19 18: APTT 27.1 Seconds (21.0-31.0) 12/11/19 18:26 PTT Ratio 1.0 12/11/19 18:26 Sodium 136 mmol/L (136-145) 12/11/19 16: Potassium 3.7 mmol/L (3.5-5.1) 12/11/19 16: Chloride 104 mmol/L (98-107) 12/11/19 16: Carbon Dioxide 27 mmol/L (21-32) 12/11/19 16: Anion Gap 5.0 (3-11) 12/11/19 16: BUN 8 mg/dl (7-18) 12/11/19 16: Creatinine 0.85 mg/dl (0.6-1.4) 12/11/19 16:28 Est Cr Clr Drug Dosing Not Reportable 12/11/19 16:28 Est GFR ( Amer) 97.4 12/11/19 16:28 Est GFR (Non-Af Amer) 84.0 12/11/19 16:28 BUN/Creatinine Ratio 9.3 (10-20) L 12/11/19 16:28 Glucose 299 mg/dl (70-99) H 12/11/19 16:28 POC Glucose 268 mg/dl (70-99) H 12/11/19 17:58 Calcium 9.1 mg/dl (8.5-10.1) 12/11/19 16:28 Magnesium 1.8 mg/dl (1.8-2.4) 12/11/19 18:26 Total Bilirubin 0.8 mg/dl (0.2-1) 12/11/19 16:28 AST 40 U/L (15-37) H 12/11/19 16:28 ALT 35 U/L (12-78) 12/11/19 16:28 Alkaline Phosphatase 236 U/L (45-117) H 12/11/19 16:28 Troponin I < 0.015 ng/ml (0-0.045) 12/11/19 18:26 Total Protein 8.0 gm/dl (6.4-8.2) 12/11/19 16:28 Albumin 3.3 gm/dl (3.4-5.0) L 12/11/19 16:28 Globulin 4.7 gm/dl (2.5-4.0) H 12/11/19 16:28 Albumin/Globulin Ratio 0.7 (0.9-2) L 12/11/19 16:28 Diagnostic Findings [facility], [place] [phone] CT Scan Report Patient: SABINA CLARK GAdmit Date: 12/11/19 MR#: [id number]: [address] Acct ID:[id number]: Date: 1940[facility] Zip: [place] [address] Age: 79Location: ED Sex: M Room/Bed: Att Phy:Diagnosis: FALL, R LEG IS NUMB Nadine Phy: Amy Fowler PA-CService Date: 12/11/19 Fam Phy:Interpreting Phy: Maximiliano Orozco MD Admit Phy: Ordering Phy: Solo Orellana MD cc: ~ CT lumbar spine wo con CLINICAL HISTORY: Fall. Evaluate for fracture. COMPARISON STUDY: Lumbar spine MRI May 05, 2010. CT of the abdomen and pelvis August 08, 2019. TECHNIQUE: Axial images of the lumbar spine were obtained without IV contrast. Sagittal and coronal reconstructions were viewed. Automated exposure control was utilized for the study. A dose lowering technique was utilized adhering to the principles of ALARA. FINDINGS: Patient is status post L4-L5 posterior decompression. There is mild S- shaped curvature of the lumbar spine. There is no acute fracture. No suspicious osseous lesion is noted. The central canal and neural foramen are suboptimally assessed by CT. Disc space narrowing with vacuum disc phenomenon is noted at L2- L3. Paravertebral soft tissues are unremarkable. There is partial ankylosis of the bilateral sacroiliac joints. Moderate to severe multilevel degenerative changes within the lumbar spine are noted. IMPRESSION: 1. No acute lumbar spine fracture or subluxation. 2. Status post L4-L5 laminectomies. 3. Moderate to severe multilevel degenerative changes within the lumbar spine. Suboptimal assessment of the central canal and neural foramen given CT technique. ACT 112: Negative or not required by law. Electronically signed by: Maximiliano Orozco M.D. 12/11/2019 7:34 PM Dictated: 12/11/191927 Transcribed: 12/11/191928 [place], [place] [phone] CT Scan Report Patient: SABINA CLARK Date: 12/11/19 MR#: [id number]: [address] [facility] Acct ID:[id number]: Date: [address] [place] [address] Zip: [place] [id number] Age: 79Location: ED Sex: M Room/Bed: Att Phy:Diagnosis: FALL, R LEG IS NUMB Nadine Phy: Amy Fowler PA-CService Date: 12/11/19 Fam Phy:Interpreting Phy: Maximiliano Orozco MD Admit Phy: Ordering Phy: Solo Orellana MD cc: ~ CT OF THE HEAD WITHOUT CONTRAST CLINICAL HISTORY: Right leg weakness and numbness. Evaluate for cerebrovascular accident. COMPARISON STUDY: MRI of the brain March 22, 2019. TECHNIQUE: Helical axial images of the head were obtained without IV contrast. Automated exposure control was utilized for the study. A dose lowering technique was utilized adhering to the principles of ALARA. FINDINGS: No acute intracranial hemorrhage, midline shift or mass effect is present. The ventricular system is unremarkable. The basilar cisterns are patent. No extra-axial collections are present. There are no findings to suggest acute dural sinus thrombosis or acute territorial infarct. No significant calvarial abnormalities are present. Visualized portions of the sinuses and mastoid air cells are clear. Matter hypodensity suggests small vessel disease. IMPRESSION: No acute intracranial findings. ACT 112: Negative or not required by law. Electronically signed by: Maximiliano Orozco M.D. 12/11/2019 7:15 PM Dictated: 12/11/191912 Transcribed: 12/11/191912 [facility] [phone] CT Scan Report Patient: SABINA CLARK Date: 12/11/19 MR#: [id number]: [address] [facility] Acct ID:[id number]: Date: [address] [place] [address] Zip: [place] [address] Age: 79Location: ED Sex: M Room/Bed: Att Phy:Diagnosis: FALL, R LEG IS NUMB Nadine Phy: Amy Fowler PA-CService Date: 12/11/19 Fam Phy:Interpreting Phy: Maximiliano Orozco MD Admit Phy: Ordering Phy: oSlo Orellana MD cc: ~ CTA ANGIOGRAPHY OF THE HEAD CLINICAL HISTORY: Right leg weakness and numbness. Evaluate for stroke. COMPARISON STUDY: MRI of the brain March 22, 2019. TECHNIQUE: Helical axial images of the head were obtained following uneventful intravenous administration of 118 cc of Optiray 320. Sagittal and coronal reconstructions were viewed as well as maximal intensity projections on an [employer] 3-D workstation. Automated exposure control was utilized for the study. A dose lowering technique was utilized adhering to the principles of ALARA. CT DOSE: 1922.13 mGy.cm FINDINGS: Please note that the head CT will be reported separately. No acute intracranial hemorrhage, midline shift or mass effect is present. Ventricular system is normal. Basilar cisterns are patent. There are no extra axial collections. White matter hypodensities favor small vessel disease. No intracranial mass or pathologic enhancement is identified. The bilateral M1, M2, A1 and A2 segments are patent. There is no intracranial aneurysm or abrupt vessel cut off. There is no intraluminal thrombus. The posterior circulation is also intact. IMPRESSION: Unremarkable CTA of the head. ACT 112: Negative or not required by law. Electronically signed by: Maximiliano Orozco M.D. 12/11/2019 7:27 PM Dictated: 12/11/191923 Transcribed: 12/11/191923 [place], [place] [phone] CT Scan Report Patient: SABINA CLARK Date: 12/11/19 MR#: [id number]: [address] [facility] Acct ID:[id number]: Date: [address] [place] [address] Zip: [place] [address] Age: 79Location: ED Sex: M Room/Bed: Att Phy:Diagnosis: FALL, R LEG IS NUMB Nadine Phy: Amy Fowler PA-CService Date: 12/11/19 Fam Phy:Interpreting Phy: Maximiliano Orozco MD Admit Phy: Ordering Phy: Solo Orellana MD cc: ~ CT ANGIOGRAPHY OF THE NECK WITH CONTRAST CLINICAL HISTORY: Right leg weakness and numbness. Evaluate for stroke. COMPARISON STUDY: No previous studies for comparison. Technique: CT angiography of the carotid and vertebral arteries was obtained using [employer] 320 IV and 3D reconstruction on an independent workstation. NASCET criteria was utilized. Automated exposure control was utilized for the study. A dose lowering technique was utilized adhering to the principles of ALARA. Findings: There is severe stenosis at the origin the right vertebral artery. There is moderate plaque within the bilateral carotid bifurcations without stenosis. The left vertebral artery is dominant and patent. No dissection within the major vessels of the neck. No thrombus is identified. Lung apices are clear. There is no cervical lymphadenopathy. There is no cervical spine fracture. IMPRESSION: 1. Moderate atherosclerotic plaque. No stenosis within the bilateral common carotid and cervical internal carotid arteries. 2. 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 3. No dissection. ACT 112: Negative or not required by law. Electronically signed by: Maximiliano Orozco M.D. 12/11/2019 7:22 PM Dictated: 12/11/191914 Transcribed: 12/11/191914 [facility], [place] [phone] Magnetic Resonance Report Patient: SABINA CLARK GAdmit Date: 12/11/19 MR#: [id number]: [address] Acct ID:[id number]: Date: [address] [place] [address] Zip: [place] [address] Age: 79Location: ED Sex: M Room/Bed: Att Phy:Diagnosis: FALL, R LEG IS NUMB Nadine Phy: Amy Fowler PA-CService Date: 12/11/19 Fam Phy:Interpreting Phy: Maximiliano Orozco MD Admit Phy: Ordering Phy: Solo Orellana MD cc: ~ MRI OF THE BRAIN WITHOUT AND WITH IV CONTRAST CLINICAL HISTORY: Right leg weakness and numbness. Evaluate for cerebrovascular accident. COMPARISON STUDY: MRI of the brain March 22, 2019. Head CT and CTA of the head December 11, 2019. TECHNIQUE: Utilizing a 1.5 Ashlyn magnet and dedicated coil, multiplanar, multiecho imaging of the brain was performed pre and postcontrast administration. IV administration of 7.5 mL of Gadavist contrast was uneventful. FINDINGS: This exam is mildly compromised by motion artifact although is diagnostic. There are no foci of restricted diffusion to suggest acute infarct. No acute intracranial hemorrhage, midline shift or mass effect is present. Ventricular system is normal. Basilar cisterns are patent. There are no extra- axial collections. No intracranial mass or pathologic enhancement is identified. Numerous white matter T2 hyperintense foci are similar to MRI of March 22, 2019. Calvarial signal is normal. Orbits are unremarkable. Flow-voids for the major intracranial vessels are present. IMPRESSION: 1. No acute intracranial findings. 2. No intracranial mass or pathologic enhancement. 3. No change in appearance of the brain since MRI of March 22, 2019. Moderate small vessel disease. ACT 112: Negative or not required by law. Electronically signed by: Maximiliano Orozco M.D. 12/11/2019 10:37 PM Dictated: 12/11/192231 Transcribed: 12/11/192231 [facility] [place] [phone] Magnetic Resonance Report Patient: SABINA CLARK Date: 12/11/19 MR#: [id number]: [address] Acct ID:[id number]: Date: [address] [place] [address] Zip: [place] [address] Age: 79Location: ED Sex: M Room/Bed: Att Phy:Diagnosis: FALL, R LEG IS NUMB Nadine Phy: Amy Fowler PA-CService Date: 12/11/19 Fam Phy:Interpreting Phy: Maximiliano Orozco MD Admit Phy: Ordering Phy: Solo Orellana MD cc: ~ MRI OF THE LUMBAR SPINE WITHOUT CONTRAST CLINICAL HISTORY: Right leg weakness and numbness. COMPARISON STUDY: MRI of the lumbar spine May 05, 2010 and November 02, 2016. CT of the lumbar spine December 11, 2019. TECHNIQUE: Utilizing a 1.5 Ashlyn magnet and dedicated coil, multiplanar, multiecho imaging of the lumbar spine was performed without IV contrast. FINDINGS: For purposes of numbering on this exam, the L5-S1 disc space is assigned to axial image 23 of 25. Vertebral body heights are maintained. There is no suspicious marrow replacement. Discogenic changes at the L2-L3 level have developed since prior MRI of November 02, 2016. There is mild S-shaped curvature of the lumbar spine. There is no intracanalicular mass or fluid collection. Paravertebral soft tissues are unremarkable. Conus terminates at the upper L1 level. L4-L5 laminectomies are noted. L1-2: There is mild disc bulge with moderate facet arthrosis. The central canal and neural foramen are patent. L2-3: There is disc space narrowing with disc bulge, ligamentous hypertrophy and facet arthrosis. There is severe narrowing of the central canal which has progressed since MRI of November 02, 2016. Facet arthrosis is present. A superimposed left foraminal disc protrusion is noted. There is severe narrowing of the left neural foramen. There is mild narrowing of the right neural foramen. L3-4: Posterior decompression is noted. There is disc space narrowing with disc bulge. Mild central canal narrowing is noted. There is mild narrowing of the left neural foramen. There is severe narrowing of the right neural foramen predominantly due to facet arthrosis. L4-5: Posterior decompression is noted. There is disc space narrowing with disc bulge. Central canal is patent. Moderate left and severe right neural foraminal stenosis is noted, probably due to facet arthrosis. L5-S1: There is disc space narrowing with disc bulge. There is facet arthrosis. Central canal is patent. There is mild right and moderate left neural foraminal stenosis. IMPRESSION: 1. Status post L4-L5 laminectomies. 2. Severe central canal stenosis at L2-L3 due to disc bulge, ligamentous hypertrophy and facet arthrosis. 3. Severe multilevel neural foraminal stenosis, including severe stenosis of the right L3-L4 and L4-L5 neural foramen, as described above. 4. Left paracentral disc protrusion at L2-L3 which results in severe narrowing of the left neural foramen at this level. ACT 112: Negative or not required by law. Electronically signed by: Maximiliano Orozco M.D. 12/11/2019 10:14 PM Dictated: 12/11/192206 Transcribed: 12/11/192206 Code Status & VTE Plan Code Status Full code VTE Prophylaxis Plan VTE Prophylaxis will be ordered: Yes PG Care Time/CCT Total # of Minutes Spent Total Time Spent with Patient: Total time spent is greater than 50% in coordination of care (as documented) at patient's floor/unit and/or counseling patient: Coding Level of Care Code 77552 Initial Inpt Care Lvl 3 Diagnoses Right leg numbness R20.0 Chronic back pain M54.9; G89.29 Hypertension I10 Depression F32.9 Diabetes mellitus, type 2 E11.9 Pancreatic mass K86.89 GERD (gastroesophageal reflux disease) K21.9 Hypercholesterolemia E78.00
[2019-12-11] MEDS ORDERED: GADOBUTROL 65ML VIAL IV PRN (22:09)
--- NOTE | 2019-12-11 22:15 | Magnetic Resonance Report ---
MRI OF THE LUMBAR SPINE WITHOUT CONTRAST CLINICAL HISTORY: Right leg weakness and numbness. COMPARISON STUDY: MRI of the lumbar spine May 05, 2010 and November 02, 2016. CT of the lumbar spine December 11, 2019. TECHNIQUE: Utilizing a 1.5 Ashlyn magnet and dedicated coil, multiplanar, multiecho imaging of the [facility] spine was performed without IV contrast. FINDINGS: For purposes of numbering on this exam, the L5-S1 disc space is assigned to axial image 23 of 25. Johnathan tebral body heights are maintained. There is no suspicious marrow replacement. Discogenic changes at the L2-L3 level have developed since prior MRI of November 02, 2016. There is mild S-shaped curvature of the lumbar spine. There is no intracanalicular mass or fluid collection. Paravertebral soft tissue s are unremarkable. Conus terminates at the upper L1 level. L4-L5 laminectomies are noted. L1-2: There is mild disc bulge with moderate facet arthrosis. The central canal and neural foramen ar e patent. L2-3: There is disc space narrowing with disc bulge, ligamentous hypertrophy and facet arthrosis. The re is severe narrowing of the central canal which has progressed since MRI of November 02, 2016. Facet arthrosis is present. A superimposed left foraminal disc protrusion is noted. There is severe narrow ing of the left neural foramen. There is mild narrowing of the right neural foramen. L3-4: Posterior decompression is noted. There is disc space narrowing with disc bulge. Mild central c anal narrowing is noted. There is mild narrowing of the left neural foramen. There is severe narrowin g of the right neural foramen predominantly due to facet arthrosis. L4-5: Posterior decompression is noted. There is disc space narrowing with disc bulge. Central canal is patent. Moderate left and severe right neural foraminal stenosis is noted, probably due to facet a rthrosis. L5-S1: There is disc space narrowing with disc bulge. There is facet arthrosis. Central canal is brito nt. There is mild right and moderate left neural foraminal stenosis. IMPRESSION: 1. Status post L4-L5 laminectomies. 2. Severe central canal stenosis at L2-L3 due to disc bulge, ligamentous hypertrophy and facet arthro sis. 3. Severe multilevel neural foraminal stenosis, including severe stenosis of the right L3-L4 and L4-L 5 neural foramen, as described above. 4. Left paracentral disc protrusion at L2-L3 which results in severe narrowing of the left neural for amen at this level. ACT 112: Negative or not required by law. Electronically signed by: Maximiliano Orozco M.D. 12/11/2019 10:14 PM
--- NOTE | 2019-12-11 22:38 | Magnetic Resonance Report ---
MRI OF THE BRAIN WITHOUT AND WITH IV CONTRAST CLINICAL HISTORY: Right leg weakness and numbness. Evaluate for cerebrovascular accident. COMPARISON STUDY: MRI of the brain March 22, 2019. Head CT and CTA of the head December 11, 2019. TECHNIQUE: Utilizing a 1.5 Ashlyn magnet and dedicated coil, multiplanar, multiecho imaging of the br ain was performed pre and postcontrast administration. IV administration of 7.5 mL of Gadavist contr ast was uneventful. FINDINGS: This exam is mildly compromised by motion artifact although is diagnostic. There are no foc i of restricted diffusion to suggest acute infarct. No acute intracranial hemorrhage, midline shift o r mass effect is present. Ventricular system is normal. Basilar cisterns are patent. There are no ext ra-axial collections. No intracranial mass or pathologic enhancement is identified. Numerous white ma tter T2 hyperintense foci are similar to MRI of March 22, 2019. Calvarial signal is normal. Orbits are unremarkable. Flow-voids for the major intracranial vessels are present. IMPRESSION: 1. No acute intracranial findings. 2. No intracranial mass or pathologic enhancement. 3. No change in appearance of the brain since MRI of March 22, 2019. Moderate small vessel disease. ACT 112: Negative or not required by law. Electronically signed by: Maximiliano Orozco M.D. 12/11/2019 10:37 PM
[2019-12-11] MEDS ORDERED: MAGNESIUM HYDROXIDE SUSP 30 ML UDC PO PRN (23:29)
[2019-12-11] MEDS ORDERED: DEXTROSE 50% 50 ML SYRINGE IV PRN (23:29)
[2019-12-11] MEDS ORDERED: ONDANSETRON INJ 2 MG/ML 2 ML VIAL IV PRN (23:29)
[2019-12-11] MEDS ORDERED: CARBOHYDRATES FOR HYPOGLYCEMIA PO PRN (23:29)
[2019-12-11] MEDS ORDERED: GLUCOSE 10 TABS/TUBE PO PRN (23:29)
[2019-12-11] MEDS ORDERED: ALUMINUM/MAGNESIUM SUSP 30 ML UDC PO PRN (23:29)
[2019-12-11] MEDS ORDERED: GLUCAGON FOR INJ 1 MG VIAL SQ PRN (23:29)
[2019-12-11] MEDS ORDERED: GLUCOSE 40% GEL 15 GM TUBE PO PRN (23:29)
[2019-12-11] MEDS ORDERED: LIDOCAINE 5% 1 PATCH TD PRN (23:29)
[2019-12-11] MEDS ORDERED: POLYETHYLENE (MIRALAX) 17 GM PACK PO PRN (23:29)
[2019-12-12] MEDS: PROPRANOLOL HCL 20 MG TAB PO SCH ×3 (01:50→20:55)
[2019-12-12] MEDS: PANTOprazole 40 MG TAB PO SCH ×3 (01:50→20:54)
[2019-12-12] MEDS: ACETAMINOPHEN 325 MG TAB PO PRN (02:58)
[2019-12-12 07:43] LABS: Estimated Average Glucose 220 mg/dl; Hemoglobin A1C 9.3 % (4.5-5.6)
[2019-12-12 08:26] LABS: Hematocrit (blood only) 33.1 % (42-52); Hemoglobin 10.2 g/dL (14.0-18.0); Mean Corpuscular Hemoglobin 24.2 pg (25-34); Mean Corpuscular Hgb Conc 30.8 g/dL (32-36); Mean Corpuscular Volume 78.6 fL (80-100); Platelet Count 115 K/uL (130-400); RDW Coefficient of Variation 17.9 % (11.5-14.5); RDW Standard Deviation 50.6 fL (36.4-46.3); Red Blood Count 4.21 M/uL (4.7-6.1); White Blood Count 4.47 K/uL (4.8-10.8)
[2019-12-12 08:49] LABS: Albumin Level 2.9 gm/dl (3.4-5.0); Aspartate Aminotransferase 39 U/L (15-37); BUN Creatinine Ratio 12.5 (10-20); Blood Urea Nitrogen 8 mg/dl (7-18); Calcium 9.4 mg/dl (8.5-10.1); Carbon Dioxide 26 mmol/L (21-32); Chloride 105 mmol/L (98-107); Creatinine Clr Calc Pharmacy 96.8 ml/min; Est GFR (African American) 108.1; Est GFR (Non-African American) 93.3; Glucose 194 mg/dl (70-99); Potassium 3.6 mmol/L (3.5-5.1); Sodium 138 mmol/L (136-145)
[2019-12-12] MEDS: INSULIN ASPART 100 UNITS/ML 3 ML PEN SC SCH ×4 (08:49→20:56)
[2019-12-12] MEDS: HEPARIN SOD 5,000 UNIT/0.5 ML VIAL SQ SCH ×2 (08:50→20:56)
[2019-12-12] MEDS: VENLAFAXINE HCL XR 75 MG CAPXR PO SCH (08:50)
[2019-12-12] MEDS: FERROUS SULFATE 325 MG TAB PO SCH ×2 (08:50→20:55)
[2019-12-12] MEDS: HYDROCODONE/ACETAMINOPHEN 10/325 TAB PO SCH ×2 (08:51→20:54)
[2019-12-12] MEDS: OMEGA-3 (PURIFIED FISH OIL) 1 GM CAP PO SCH (08:51)
[2019-12-12] MEDS: AMLODIPINE BESYLATE 5 MG TAB PO SCH (08:51)
[2019-12-12 08:53] LABS: Alanine Aminotransferase 30 U/L (12-78); Albumin Globulin Ratio 0.7 (0.9-2); Alkaline Phosphatase 205 U/L (45-117); Globulin 4.4 gm/dl (2.5-4.0); Total Protein 7.4 gm/dl (6.4-8.2); Troponin I < 0.015 ng/ml (0-0.045)
--- NOTE | 2019-12-12 11:12 | Electrocardiogram Report ---
Test Reason : Blood Pressure : / mmHG Vent. Rate : 066 BPM Atrial Rate : 066 BPM P-R Int : 182 ms QRS Dur : 086 ms QT Int : 462 ms P-R-T Axes : 038 -28 026 degrees QTc Int : 484 ms Normal sinus rhythm Nonspecific ST abnormality Prolonged QT Abnormal ECG When compared with ECG of 11-DEC-2019 17:47, (unconfirmed) Sinus rhythm is no longer with 2nd degree A-V block Confirmed by Bird De La Cruz ([id number]) on 12/12/2019 11:12:00 AM Referred By: Amy Fowler Confirmed By:Bird De La Cruz
--- NOTE | 2019-12-12 11:13 | Electrocardiogram Report ---
Test Reason : Blood Pressure : / mmHG Vent. Rate : 067 BPM Atrial Rate : 134 BPM P-R Int : 184 ms QRS Dur : 098 ms QT Int : 474 ms P-R-T Axes : 038 -23 004 degrees QTc Int : 500 ms Poor data quality, interpretation may be adversely affected Sinus tachycardia Nonspecific ST abnormality Prolonged QT Abnormal ECG When compared with ECG of 13-JUN-2019 15:07, Non-specific change in ST segment in Anterior leads T wave inversion no longer evident in Anterior leads Confirmed by Bird De La Cruz ([id number]) on 12/12/2019 11:13:28 AM Referred By: Amy Fowler Confirmed By:Bird De La Cruz
--- NOTE | 2019-12-12 13:07 | Hospitalist Progress Note ---
Date of Service December 12, 2019 Assessment & Plan (1) Right leg numbness: - Presented with RLE numbness over the last few months and recurrent falls at home. - H/o L4-L5 laminectomies completed by Dr. Kuo. - Lumbar spine MRI with severe central canal stenosis at L2-L3 with disc bulge, left paracentral disc protrusion at L2-L3. - Brain MRI was negative for acute CVA. - Lumbar spine changes likely leading to acute symptoms. Continue home Gabapentin 400 mg qhs. - Consult Dr. Zapien for evaluation. (2) Falls: - Possibly related to osteoarthritis of bilat knees vs. lumbar spine changes leading to RLE weakness. - PT/OT evaluation for discharge planning. (3) Osteoarthritis: - Pt. reports he will need bilat knee arthroplasties in January -- first surgery is currently scheduled 01/11/[address] Angel. - Pt. will be evaluated on to determine if he is a surgical candidate. (4) Pancreatic mass: - Pancreatic tail mass noted on CT A/P in Jul 2019. - MRI Aug 2019 showed multiple cystic foci in pancreas including the tail -- consider intrapancreatic pseudocysts vs. cystic neoplasm. - S/p EGD on 11/30: small esophageal varices, portal hypertensive gastropathy. - GI recommends an EUS with Dr. Pa -- currently scheduled in January 2020. - Recommend completion of EUS in January without further delay in study to diagnose pancreatic mass -- concern for underlying malignancy. (5) Chronic back pain: - Continue Gabapentin 400 mg qhs, Jenison 10/325 BID. (6) Hypertension: - Continue Propanolol and Amlodipine. - Holding home Lisinopril. (7) Depression: - Continue Effexor as prescribed. (8) Diabetes mellitus, type 2: - A1C is 9.3. - Hold home Metformin. - SSI coverage with accuchecks. Pharm consult due to hyperglycemia. (9) GERD (gastroesophageal reflux disease): - PPI BID. (10) Iron deficiency anemia: - Possibly related to slow bleeding from varices, h/o gastropathy. - Continue ferrous sulfate BID. (11) Liver cirrhosis, alcoholic: - H/o ETOH abuse; pt. reports drinking 1-2 beers per day. - Recommend complete cessation of ETOH at home. (12) Esophageal varices: - Continue Propanolol 40 mg BID. (13) Elevated alkaline phosphatase level: - In setting of liver cirrhosis. - Monitor levels intermittently. (14) Thrombocytopenia: - Plt count 115 in setting of liver cirrhosis. - Continue Heparin if plt >100K. (15) Hypercholesterolemia: - Atorvastatin 80 mg qhs. DVT ppx: Heparin BID. Dispo: Med/surg; discharge pending PT/OT evaluation -- possibly on 12/13/19. Admission and Anticipated Discharge Date Admission Date: December 11, 2019 Subjective Pt. reports he developed bilateral lower extremity weakness this summer, R>L. He started falling frequently at home in May to June due to LE weakness. He had difficulty standing up from falls at home. He fell twice over the last week -- took ~1 hour to stand up from one fall at home. Currently c/o RLE weakness and numbness; denies pain in RLE. Also has numbness at tips of all fingers. He is urinating well, last BM on Wednesday. He is currently drinking 1-2 beers per day, denies h/o ETOH withdrawals. Review of Systems Review of Systems: All systems reviewed & are unremarkable except as noted in HPI & below Constitutional: + fatigue and + weakness; no fever, no chills and no anorexia Respiratory: no cough, no dyspnea and no dyspnea on exertion Cardiovascular: no chest pain, no palpitations and no edema Gastrointestinal: no abdominal pain, no nausea, no vomiting and no constipation Genitourinary: no difficulty urinating Musculoskeletal: no back pain and no joint pain Integumentary: no non-healing lesions Neurologic: + localized weakness (RLE weakness ), + generalized weakness and + numbness (RLE ); no radiating pain Physical Exam Physical Exam: General: Resting comfortably HEENT: NC/AT; PERRLA with EOMI; [place] conjunctiva, MMM. No erythema of posterior pharynx Neck: Supple and nontender Cardiac: RRR Lungs: CTA bilaterally Abdomen: Bowel normoactive X 4; Nontender to palpation Back: NO spinous tenderness Extremities: Warm. No edema present Neuro: +2-3/5 muscle strength in bilat lower extremities. Skin: No rash Results & Data ([facility]) Vital Signs (Past 12 Hours) Vital Signs Temp Pulse Resp BP Pulse Ox 12/12/19 07:36 36.7 C 65 16 162/78 H 98 12/12/19 04:03 36.5 C 65 14 158/76 H 97 Laboratory Results 12/12/19 12/12/19 12/12/19 Range/Units 12:19 12:17 08:14 WBC (4.8-10.8) K/uL RBC (4.7-6.1) M/uL Hgb (14.0-18.0) g/dL Hct (42-52) % MCV (80-100) fL MCH (25-34) pg MCHC (32-36) g/dL RDW Std Deviation (36.4-46.3) fL RDW Coeff of Elliot (11.5-14.5) % Plt Count (130-400) K/uL MPV (7.4-10.4) fL Immature Gran % (Auto) % Neut % (Auto) % Lymph % (Auto) % [place] % (Auto) % Eos % (Auto) % Baso % (Auto) % Immature Gran # (Auto) (0.00-0.02) K/uL Neut # (Auto) (1.4-6.5) K/uL Lymph # (Auto) (1.2-3.4) K/uL [place] # (Auto) (0.11-0.59) K/uL Eos # (Auto) (0-0.5) K/uL Baso # (Auto) (0-0.2) K/uL PT (9.0-12.0) Seconds INR (0.9-1.1) APTT (21.0-31.0) Seconds PTT Ratio Sodium 138 (136-145) mmol/L Potassium 3.6 (3.5-5.1) mmol/L Chloride 105 (98-107) mmol/L Carbon Dioxide 26 (21-32) mmol/L Anion Gap 7.0 (3-11) BUN 8 (7-18) mg/dl Creatinine 0.66 (0.6-1.4) mg/dl Est Cr Clr Drug Dosing 96.8 Est GFR ( Amer) 108.1 Est GFR (Non-Af Amer) 93.3 BUN/Creatinine Ratio 12.5 (10-20) Glucose 194 H (70-99) mg/dl POC Glucose 323 H* 338 H* (70-99) mg/dl Estimat Average Glucose mg/dl Hemoglobin A1c (4.5-5.6) % Calcium 9.4 (8.5-10.1) mg/dl Magnesium (1.8-2.4) mg/dl Total Bilirubin 1.0 (0.2-1) mg/dl AST 39 H (15-37) U/L ALT 30 (12-78) U/L Alkaline Phosphatase 205 H (45-117) U/L Troponin I < 0.015 (0-0.045) ng/ml Total Protein 7.4 (6.4-8.2) gm/dl Albumin 2.9 L (3.4-5.0) gm/dl Globulin 4.4 H (2.5-4.0) gm/dl Albumin/Globulin Ratio 0.7 L (0.9-2) 12/12/19 12/12/19 12/11/19 Range/Units 08:14 08:13 18:26 WBC 4.47 L (4.8-10.8) K/uL RBC 4.21 L (4.7-6.1) M/uL Hgb 10.2 L (14.0-18.0) g/dL Hct 33.1 L (42-52) % MCV 78.6 L (80-100) fL MCH 24.2 L (25-34) pg MCHC 30.8 L (32-36) g/dL RDW Std Deviation 50.6 H (36.4-46.3) fL RDW Coeff of Elliot 17.9 H (11.5-14.5) % Plt Count 115 L (130-400) K/uL MPV 10.0 (7.4-10.4) fL Immature Gran % (Auto) % Neut % (Auto) % Lymph % (Auto) % [place] % (Auto) % Eos % (Auto) % Baso % (Auto) % Immature Gran # (Auto) (0.00-0.02) K/uL Neut # (Auto) (1.4-6.5) K/uL Lymph # (Auto) (1.2-3.4) K/uL [place] # (Auto) (0.11-0.59) K/uL Eos # (Auto) (0-0.5) K/uL Baso # (Auto) (0-0.2) K/uL PT (9.0-12.0) Seconds INR (0.9-1.1) APTT (21.0-31.0) Seconds PTT Ratio Sodium (136-145) mmol/L Potassium (3.5-5.1) mmol/L Chloride (98-107) mmol/L Carbon Dioxide (21-32) mmol/L Anion Gap (3-11) BUN (7-18) mg/dl Creatinine (0.6-1.4) mg/dl Est Cr Clr Drug Dosing Est GFR ( Amer) Est GFR (Non-Af Amer) BUN/Creatinine Ratio (10-20) Glucose (70-99) mg/dl POC Glucose 253 H (70-99) mg/dl Estimat Average Glucose mg/dl Hemoglobin A1c (4.5-5.6) % Calcium (8.5-10.1) mg/dl Magnesium 1.8 (1.8-2.4) mg/dl Total Bilirubin (0.2-1) mg/dl AST (15-37) U/L ALT (12-78) U/L Alkaline Phosphatase (45-117) U/L Troponin I < 0.015 (0-0.045) ng/ml Total Protein (6.4-8.2) gm/dl Albumin (3.4-5.0) gm/dl Globulin (2.5-4.0) gm/dl Albumin/Globulin Ratio (0.9-2) 12/11/19 12/11/19 12/11/19 Range/Units 18:26 17:58 16:28 WBC (4.8-10.8) K/uL RBC (4.7-6.1) M/uL Hgb (14.0-18.0) g/dL Hct (42-52) % MCV (80-100) fL MCH (25-34) pg MCHC (32-36) g/dL RDW Std Deviation (36.4-46.3) fL RDW Coeff of Elliot (11.5-14.5) % Plt Count (130-400) K/uL MPV (7.4-10.4) fL Immature Gran % (Auto) % Neut % (Auto) % Lymph % (Auto) % [place] % (Auto) % Eos % (Auto) % Baso % (Auto) % Immature Gran # (Auto) (0.00-0.02) K/uL Neut # (Auto) (1.4-6.5) K/uL Lymph # (Auto) (1.2-3.4) K/uL [place] # (Auto) (0.11-0.59) K/uL Eos # (Auto) (0-0.5) K/uL Baso # (Auto) (0-0.2) K/uL PT 11.9 (9.0-12.0) Seconds INR 1.2 H (0.9-1.1) APTT 27.1 (21.0-31.0) Seconds PTT Ratio 1.0 Sodium (136-145) mmol/L Potassium (3.5-5.1) mmol/L Chloride (98-107) mmol/L Carbon Dioxide (21-32) mmol/L Anion Gap (3-11) BUN (7-18) mg/dl Creatinine (0.6-1.4) mg/dl Est Cr Clr Drug Dosing Est GFR ( Amer) Est GFR (Non-Af Amer) BUN/Creatinine Ratio (10-20) Glucose (70-99) mg/dl POC Glucose 268 H (70-99) mg/dl Estimat Average Glucose 220 mg/dl Hemoglobin A1c 9.3 H (4.5-5.6) % Calcium (8.5-10.1) mg/dl Magnesium (1.8-2.4) mg/dl Total Bilirubin (0.2-1) mg/dl AST (15-37) U/L ALT (12-78) U/L Alkaline Phosphatase (45-117) U/L Troponin I (0-0.045) ng/ml Total Protein (6.4-8.2) gm/dl Albumin (3.4-5.0) gm/dl Globulin (2.5-4.0) gm/dl Albumin/Globulin Ratio (0.9-2) 12/11/19 12/11/19 Range/Units 16:28 16:28 WBC 5.32 (4.8-10.8) K/uL RBC 4.39 L (4.7-6.1) M/uL Hgb 10.5 L (14.0-18.0) g/dL Hct 34.4 L (42-52) % MCV 78.4 L (80-100) fL MCH 23.9 L (25-34) pg MCHC 30.5 L (32-36) g/dL RDW Std Deviation 49.7 H (36.4-46.3) fL RDW Coeff of Elliot 17.6 H (11.5-14.5) % Plt Count 155 (130-400) K/uL MPV 9.9 (7.4-10.4) fL Immature Gran % (Auto) 0.0 % Neut % (Auto) 54.1 % Lymph % (Auto) 36.3 % [place] % (Auto) 7.9 % Eos % (Auto) 1.3 % Baso % (Auto) 0.4 % Immature Gran # (Auto) 0.00 (0.00-0.02) K/uL Neut # (Auto) 2.88 (1.4-6.5) K/uL Lymph # (Auto) 1.93 (1.2-3.4) K/uL [place] # (Auto) 0.42 (0.11-0.59) K/uL Eos # (Auto) 0.07 (0-0.5) K/uL Baso # (Auto) 0.02 (0-0.2) K/uL PT (9.0-12.0) Seconds INR (0.9-1.1) APTT (21.0-31.0) Seconds PTT Ratio Sodium 136 (136-145) mmol/L Potassium 3.7 (3.5-5.1) mmol/L Chloride 104 (98-107) mmol/L Carbon Dioxide 27 (21-32) mmol/L Anion Gap 5.0 (3-11) BUN 8 (7-18) mg/dl Creatinine 0.85 (0.6-1.4) mg/dl Est Cr Clr Drug Dosing Not Reportable Est GFR ( Amer) 97.4 Est GFR (Non-Af Amer) 84.0 BUN/Creatinine Ratio 9.3 L (10-20) Glucose 299 H (70-99) mg/dl POC Glucose (70-99) mg/dl Estimat Average Glucose mg/dl Hemoglobin A1c (4.5-5.6) % Calcium 9.1 (8.5-10.1) mg/dl Magnesium (1.8-2.4) mg/dl Total Bilirubin 0.8 (0.2-1) mg/dl AST 40 H (15-37) U/L ALT 35 (12-78) U/L Alkaline Phosphatase 236 H (45-117) U/L Troponin I (0-0.045) ng/ml Total Protein 8.0 (6.4-8.2) gm/dl Albumin 3.3 L (3.4-5.0) gm/dl Globulin 4.7 H (2.5-4.0) gm/dl Albumin/Globulin Ratio 0.7 L (0.9-2) PG Care Time/CCT Total # of Minutes Spent Total Time Spent with Patient: Total time spent is greater than 50% in coordination of care (as documented) at patient's floor/unit and/or counseling patient: Coding Level of Care Code 96051 Subseq Obs Care Lvl 3 Diagnoses Right leg numbness R20.0 Falls W19.XXXA Osteoarthritis M19.90 Pancreatic mass K86.89 Chronic back pain M54.9; G89.29 Hypertension I10 Depression F32.9 Diabetes mellitus, type 2 E11.9 GERD (gastroesophageal reflux disease) K21.9 Iron deficiency anemia D50.9 Liver cirrhosis, alcoholic K70.30 Esophageal varices I85.00 Elevated alkaline phosphatase level R74.8 Thrombocytopenia D69.6 Hypercholesterolemia E78.00
[2019-12-12] MEDS ORDERED: PHARMACY GLYCEMIC MGMT CONSULT PRN (13:19)
[2019-12-12] MEDS ORDERED: INSULIN GLARGINE SOLOSTAR 100 UNITS/ML 3 ML PEN SC ONE (14:00)
--- NOTE | 2019-12-12 14:52 | Pharmacy Report ---
Glycemic Control Consultation - Date of Service December 12, 2019 - Scope Scope: Glycemic Pharmacist consulted for glycemic control and to write orders per [facility] inpatient glycemic control protocol. - Objective Weight: 78.471 kg Acccarlos albertoecks BSG (last 24hrs): 12/11/19 12/11/19 12/12/19 16:28 17:58 08:13 Glucose 299 H POC Glucose 268 H 253 H 12/12/19 12/12/19 12/12/19 08:14 12:17 12:19 Glucose 194 H POC Glucose 338 H* 323 H* Laboratory Data (last 24hrs): 12/11/19 12/12/19 16:28 08:14 Potassium 3.7 3.6 Carbon Dioxide 27 26 Anion Gap 5.0 7.0 Creatinine 0.85 0.66 Est Cr Clr Drug Dosing Not Reportable 96.8 HbA1c: Hemoglobin A1c 9.3 % (4.5-5.6) H 12/11/19 16:28 - Recent Pertinent Medications Outpatient Anti-diabetic Regimen: * metformin 1 gm PO BID The patient is currently receiving: * Basal insulin: Lantus -- units every -- hours * Correctional Insulin: Novolog Correction per scale ACHS Goal Range: Low 100 mg/dL - High 150 mg/dL Correction Factor: 25 mg/dL/unit * Prandial insulin: Per carb ratio of 1 unit per 10 grams CHO consumed * Oral Agents: Risk Factors for Insulin Resistance: * Diet: T2DM - Assessment & Plan Assessment & Plan: ASSESSMENT: * Mr Huggins is a 79 y/o M with a history of uncontrolled T2DM on 1 oral medication. Patient's BSG on admission yesterday was 299 mg/dL. BSGs today are 253 mg/dL and 333 mg/dL at lunch. Potassium is 3.6. * Give Lantus 25 units x 1 (full weight-based stress of 2) to achieve steady state of Lantus faster. * Start Novolog weight-based stress of 3 for now in order to overcome any insulin resistance. * Pt is maintained on oral antidiabetic agents as an outpatient * Oral agents are not recommended for inpatient use d/t drug interactions, changing PO intake, and difficulty titrating for acute hyper/hypoglycemia. ADA recommends re-initiating outpatient oral agents 1-2 days prior to discharge if/when appropriate if they were held on admission. * Will hold oral agents for admission and utilize SQ basal bolus insulin regimen which is the recommended regimen for inpatient glycemic control. * Will initiate weight based insulin dosing for insulin ofe patient and titrate based on BSG trends. PLAN FOR INPATIENT GLYCEMIC CONTROL: * Holding outpatient oral diabetes medications * Basal insulin * Lantus 25 units SQ x 1 * Bolus insulin * NovoLog per scale ACHS or Q6hrs while NPO * Goal Range: Low 110 mg/dL - High 140 mg/dL * Correction Factor: 20 mg/dL/unit * Nutritional / Prandial insulin per carb ratio of 1 unit per 7 grams CHO consumed * Please note that the plan above was derived based on current level of insulin resistance and hospital stress. These recommendations are appropriate for inpatient admission only. Plan of care upon discharge will need to be reassessed to avoid potential outpatient hypo/hyperglycemia. Thank you.
--- NOTE | 2019-12-12 14:58 | Orthopedic Consultation ---
Date of Consultation December 12, 2019 Assessment & Plan (1) Neurogenic claudication due to lumbar spinal stenosis: I discussed with this patient reviewing his MRI and CAT scan findings. He does have significant multilevel lumbar spinal stenosis extending from L2 to the sacrum. Does have evidence of previous decompression at the L3 445 levels. His symptom complex could very well be related to the stenosis were able to appreciate on imaging. I did emphasize that any surgical intervention would most likely be quite extensive in nature requiring a revision decompression and possible fusion. Prior to embarking on such a course we would consider consultation with interventional pain management and physical therapy. Present on Admission?: Yes History of Present Illness Reason for Consultation: Patient complains of weakness affecting the right lower extremity greater than left lower extremity. Is been present for several weeks. This caused him to fall several times at home. He does live at home with his and is able to take care of himself. Denies any specific trauma fall or event precipitating his weakness. He states a sending and descending steps is also remarkably compromised. He describes more numbness weakness than pain involving right lower extremity. He has undergone a previous lumbar decompression fusion approximately 6 or 7 years ago. He had no issues postoperatively. Attending Physician: Duane Banda DO Allergies Allergy/AdvReac Type Severity Reaction Status Date / Time No Known Allergies Allergy Verified 12/11/19 19:55 Home Medications Home Medications Medication Instructions Recorded Confirmed Type propranolol 40 mg tablet 40 mg PO BID 30 Days #60 tab 03/08/19 12/11/19 Rx gabapentin 400 mg capsule 400 mg PO HS cap 06/09/19 12/11/19 History lisinopril 20 mg tablet 10 mg PO QAM tab 06/09/19 12/11/19 History atorvastatin 80 mg PO HS 06/13/19 12/11/19 History metformin 1,000 mg PO BID 06/13/19 12/11/19 History omega-3 fatty acids [Fish Oil 1,000 mg PO QAM 06/13/19 12/11/19 History Concentrate] pantoprazole 40 mg PO BID 06/13/19 12/11/19 History amlodipine 5 mg PO QAM 08/08/19 12/11/19 History hydrocodone-acetaminophen 1 tab PO BID 08/30/19 12/11/19 History lidocaine 1 patch TOPICAL BID PRN 08/30/19 12/11/19 History ascorbic acid (vitamin C) [Vitamin 250 mg PO QPM 11/21/19 12/11/19 History C] ferrous sulfate [Iron (ferrous 325 mg PO BID 11/21/19 12/11/19 History sulfate)] venlafaxine 225 mg PO QAM 11/21/19 12/11/19 History Patient History Medical History Anemia Anxiety Arthritis Cardiac murmur Cervical spondylosis without myelopathy Chronic back pain CHRONIC NECK PAIN, NORMAL ROM Chronic gastric ulcer Depression Diabetes mellitus, type 2 Esophageal varices Fatty liver Gastric polyps GERD (gastroesophageal reflux disease) Hiatal hernia History of prostate cancer s/p prostatectomy in 1998, no chemo/no radiation Hypercholesterolemia Hypertension Liver cirrhosis, alcoholic Lumbar canal stenosis Lumbar disc herniation Lumbar stenosis Microscopic hematuria Pancreatitis (Resolved) 12/2016 Restless legs syndrome Thrombocytopenia F/U PCP Surgical History History of colonoscopy History of cystoscopy D/T INCONTINENCE History of esophagogastroduodenoscopy (EGD) History of laminectomy X2 History of prostatectomy History of right inguinal hernia repair History of tooth extraction Family History Sister Family history of diabetes mellitus Mother Colorectal cancer Brother Prostate cancer Colorectal cancer Father No problems noted. Son Thyroid disease Mother Family history of diabetes mellitus Sister Family history of diabetes mellitus Sister Family history of diabetes mellitus Other No family history of adverse response to anesthesia Social History Preferred Language: Bulgarian Communication Ability: Effective Visual Impairment: No Limitations Hearing Ability: Normal Dishcloth Folder Required: No Beliefs That Will Affect Care: None marital status: Current Living Situation: Spouse current occupational status: retired Other Information That Helps Us Care for You: No Feels Safe at Home: Yes Safety Concerns: Feels Safe At This Time Smoking Status: Never smoker Tobacco Type: smokeless tobacco ; Age Quit Using Tobacco: 42 ; Do You Dip or Chew Tobacco: Yes (quit age 42) ; Second Hand Exposure: No ; Hx Alcohol Use: Yes Alcohol type: beer Alcohol Intake Frequency: Daily Hx Substance Use: No Childhood Exposure to Second-Hand Smoke: No Diet Comment: regular caffeine: No during the past year weight has: decreased > 10 lbs Dental Care, Regularly: Yes Physical Activity Frequency: Does not Exercise Physical Activity Frequency Comment: limited by physical condition Seatbelt Use: always Sunscreen Use: No Physical Exam Physical Exam: Patient is alert and oriented cooperative. He does exhibit weakness with the right dorsiflexion extensor hallucis longus compared to a 5 or 5 strength on the left. Quadriceps appear to be symmetric intact. He has full sensation to light touch and cold bilateral lower extremities. Results & Data ([facility]) Vital Signs (Past 12 Hours) Vital Signs Temp Pulse Resp BP Pulse Ox 12/12/19 07:36 36.7 C 65 16 162/78 H 98 12/12/19 04:03 36.5 C 65 14 158/76 H 97
[2019-12-12] MEDS: GABAPENTIN 400 MG CAP PO SCH (20:54)
[2019-12-12] MEDS: ATORVASTATIN 40 MG TAB PO SCH (20:55)
[2019-12-12] MEDS ORDERED: TRAZODONE HCL 100 MG TAB PO PRN (21:11)
[2019-12-13 06:07] LABS: Hematocrit (blood only) 35.4 % (42-52); Hemoglobin 10.7 g/dL (14.0-18.0); Mean Corpuscular Hgb Conc 30.2 g/dL (32-36); Mean Corpuscular Volume 79.4 fL (80-100); Mean Platelet Volume 9.5 fL (7.4-10.4); Platelet Count 129 K/uL (130-400); RDW Coefficient of Variation 17.8 % (11.5-14.5); RDW Standard Deviation 51.5 fL (36.4-46.3); Red Blood Count 4.46 M/uL (4.7-6.1); White Blood Count 5.05 K/uL (4.8-10.8)
[2019-12-13] MEDS: AMLODIPINE BESYLATE 5 MG TAB PO SCH (08:55)
[2019-12-13] MEDS: OMEGA-3 (PURIFIED FISH OIL) 1 GM CAP PO SCH (08:55)
[2019-12-13] MEDS: PROPRANOLOL HCL 20 MG TAB PO SCH ×2 (08:55→21:43)
[2019-12-13] MEDS: FERROUS SULFATE 325 MG TAB PO SCH ×2 (08:55→21:43)
[2019-12-13] MEDS: PANTOprazole 40 MG TAB PO SCH ×2 (08:56→21:42)
[2019-12-13] MEDS: VENLAFAXINE HCL XR 75 MG CAPXR PO SCH (08:56)
[2019-12-13] MEDS: INSULIN ASPART 100 UNITS/ML 3 ML PEN SC SCH ×4 (08:57→21:38)
[2019-12-13] MEDS: HEPARIN SOD 5,000 UNIT/0.5 ML VIAL SQ SCH ×2 (08:57→21:45)
[2019-12-13] MEDS ORDERED: INSULIN GLARGINE SOLOSTAR 100 UNITS/ML 3 ML PEN SC SCH (09:00)
[2019-12-13] MEDS: HYDROCODONE/ACETAMINOPHEN 10/325 TAB PO SCH ×2 (09:02→21:41)
--- NOTE | 2019-12-13 14:56 | Pharmacy Report ---
Glycemic Control Progress Note - Date of Service December 13, 2019 - Scope Glycemic Pharmacist consulted for glycemic control to write orders per formerly [facility] inpatient glycemic control protocol. - Objective Accuchecks BSG(last 24 hours):: 12/12/19 12/12/19 12/13/19 17:29 20:49 08:05 POC Glucose 102 H 118 H 172 H 12/13/19 12:00 POC Glucose 223 H HbA1c:: Hemoglobin A1c 9.3 % (4.5-5.6) H 12/11/19 16:28 - Recent Pertinent Medications The patient is currently receiving: * Basal insulin: Lantus 25 units SQ X 1 * Correctional Insulin: Novolog Correction per scale ACHS Goal Range: Low 110 mg/dL - High 140 mg/dL Correction Factor: 20 mg/dL/unit * Prandial insulin: Per carb ratio of 1 unit per 7 grams CHO consumed - Outpatient Anti-Diabetic Meds METFORMIN 1 GM PO BID - Assessment & Plan ASSESSMENT: * See progress note from 12/12/2019 for more background info, in short: * Pt receiving SQ basal bolus insulin regimen for hyperglycemia secondary to baseline DM (outpatient regimen on hold). * Patient is currently receiving an average of 54 units of insulin per day * 25 units of basal insulin * 29 units of prandial/correctional insulin * BSGs ranging 102 - 383 mg/dl over the past 24hrs * Changes needed to insulin regimen: * AM Fasting BSG = 172 mg/dl. This is ABOVE goal range for patient based on inpatient targets and co-morbidities. Therefore Basal insulin will be increased. Plan weight-based stress of 2 for BSG less than 180 mg/dL and weight-based stress of 3 for BSG 180 mg/dL or greater. * Post-prandial BSGs are in range therefore no changes needed to CF/CR * Total daily dose = ~70 units. Adjusting appropriately. * Additional notes / comments: surgery should not be done therefore restart metformin. PLAN FOR INPATIENT GLYCEMIC CONTROL: * Increasing Lantus to 19 units SQ BID (13 units if BSG less than 180 mg/dL) * Continuing correction factor of 20 mg/dl/unit * Continuing carb ratio of 1 unit per 7 grams CHO consumed * Continuing goal range of Low 110 mg/dL - High 140 mg/dL RECOMMENDATIONS FOR DISCHARGE: * TBD * Please note that the plan above was derived based on current level of insulin resistance and hospital stress. These recommendations are appropriate for inpatient admission only. Plan of care upon discharge will need to be reassessed to avoid potential outpatient hypo/hyperglycemia. Thank you.
[2019-12-13] MEDS ORDERED: SODIUM CHLORIDE 0.9% 1000ML 1,000 ML IV SCH (17:00)
--- NOTE | 2019-12-13 19:13 | Hospitalist Progress Note ---
Date of Service December 13, 2019 Assessment & Plan (1) Right leg numbness: - Presented with RLE numbness over the last few months and recurrent falls at home. - H/o L4-L5 laminectomies completed by Dr. Kuo. - Lumbar spine MRI with severe central canal stenosis at L2-L3 with disc bulge, left paracentral disc protrusion at L2-L3. - Brain MRI was negative for acute CVA. - Lumbar spine changes likely leading to acute symptoms. Continue home Gabapentin 400 mg qhs. - Consulted Dr. Zapien - surgical intervention would be quite extensive - recommends course of PT and considering interventional pain management evaluation prior to embarking on surgery (2) Falls: - Possibly related to osteoarthritis of bilat knees vs. lumbar spine changes leading to RLE weakness. - PT/OT evaluation - recommendations for rehab - referral to [facility] (3) Osteoarthritis: - Pt. reports he will need bilat knee arthroplasties in January -- first surgery is currently scheduled 01/11/[address] Angel. - Pt. was to be evaluated on to determine if he is a surgical candidate. (4) Pancreatic mass: - Pancreatic tail mass noted on CT A/P in Jul 2019. - MRI Aug 2019 showed multiple cystic foci in pancreas including the tail -- consider intrapancreatic pseudocysts vs. cystic neoplasm. - S/p EGD on 11/30: small esophageal varices, portal hypertensive gastropathy. - GI recommends an EUS with Dr. Pa -- currently scheduled in January 2020. - Recommend completion of EUS in January without further delay in study to diagnose pancreatic mass -- concern for underlying malignancy. (5) Chronic back pain: - Continue Gabapentin 400 mg qhs, [place] 10/325 BID. (6) Hypertension: - Continue Propanolol with hold parameters - Holding home Lisinopril and Norvasc for now - due to a couple lower BP readings this afternoon -- Maybe some dehydration given elevated BSGs? will given 1 L fluid and monitor BP (7) Depression: - Continue Effexor as prescribed. (8) Diabetes mellitus, type 2: - A1C is 9.3. - Hold home Metformin. - SSI coverage with accuchecks. Pharm consult due to hyperglycemia. (9) GERD (gastroesophageal reflux disease): - PPI BID. (10) Iron deficiency anemia: - Possibly related to slow bleeding from varices, h/o gastropathy. - Continue ferrous sulfate BID. (11) Liver cirrhosis, alcoholic: - H/o ETOH abuse; pt. reports drinking 1-2 beers per day. - Recommend complete cessation of ETOH at home; no signs of active withdrawal at this time (12) Esophageal varices: - Continue Propanolol 40 mg BID. (13) Elevated alkaline phosphatase level: - In setting of liver cirrhosis. - Monitor levels intermittently. (14) Thrombocytopenia: - Plt count stable; in setting of liver cirrhosis. - Continue Heparin if plt >100K. (15) Hypercholesterolemia: - Atorvastatin 80 mg qhs. DVT ppx: Heparin BID. Dispo: Referral to [facility]; consider outpatient pain management appt; DC pending SNF arrangements. Admission and Anticipated Discharge Date Admission Date: December 13, 2019 Subjective Reports doing well today. Continues to have difficulty ambulating. Did have some dizziness with walking today which made him a little nauseous. Improved with sitting down. Did have pressures in the 90s systolic this afternoon but increased to 100 systolic with standing. Will hold Norvasc and hold propranolol if hold parameters met. Will give some IVF and monitor pressure. No acute symptoms reported. Question some vagal response given possibly tensing when trying to walk. Continues to have some numbness but seems his biggest complaint with walking his knees buckling and is due to surgical intervention in January Review of Systems Constitutional: + weakness; no fever and no chills Respiratory: no cough and no dyspnea Cardiovascular: no chest pain Gastrointestinal: no abdominal pain, no nausea, no vomiting, no constipation and no diarrhea/loose stools Genitourinary: no dysuria Neurologic: + falls and + dizziness Physical Exam Constitutional: WD/WN, vitals as above no acute distress Eyes: + anicteric sclerae Neck: trachea midline Respiratory: normal respiratory effort, lungs clear to auscultation Cardiovascular: RRR, no murmur, no edema Gastrointestinal (Abdomen): Inspection/Auscultation: normal bowel sounds Percussion/Palpation: abdomen soft; abdomen nontender Musculoskeletal: Head/Neck/Chest: normocephalic and head atraumatic Skin: no rashes, warm and dry Psychiatric: A+Ox3, euthymic affect Results & Data ([facility]) Vital Signs (Past 12 Hours) Vital Signs Temp Pulse Pulse Resp BP Pulse Ox 12/13/19 16:26 74 100/59 L 12/13/19 16:03 36.5 C 62 16 96/59 L 99 12/13/19 07:20 36.4 C L 67 16 166/84 H 96 PG Care Time/CCT Total # of Minutes Spent Total Time Spent with Patient: Total time spent is greater than 50% in coordination of care (as documented) at patient's floor/unit and/or counseling patient: Coding Level of Care Code 78343 Subseq Hosp Care Lvl 2 Diagnoses Right leg numbness R20.0 Falls W19.XXXA Osteoarthritis M19.90 Pancreatic mass K86.89 Chronic back pain M54.9; G89.29 Hypertension I10 Depression F32.9 Diabetes mellitus, type 2 E11.9 GERD (gastroesophageal reflux disease) K21.9 Iron deficiency anemia D50.9 Liver cirrhosis, alcoholic K70.30 Esophageal varices I85.00 Elevated alkaline phosphatase level R74.8 Thrombocytopenia D69.6 Hypercholesterolemia E78.00
[2019-12-13] MEDS: ATORVASTATIN 40 MG TAB PO SCH (21:42)
[2019-12-13] MEDS: INSULIN GLARGINE SOLOSTAR 100 UNITS/ML 3 ML PEN SC SCH (21:44)
[2019-12-13] MEDS: GABAPENTIN 400 MG CAP PO SCH (21:44)
[2019-12-14] MEDS: INSULIN ASPART 100 UNITS/ML 3 ML PEN SC SCH ×4 (08:51→21:52)
[2019-12-14] MEDS: VENLAFAXINE HCL XR 75 MG CAPXR PO SCH (08:52)
[2019-12-14] MEDS: PROPRANOLOL HCL 20 MG TAB PO SCH ×2 (08:52→21:49)
[2019-12-14] MEDS: FERROUS SULFATE 325 MG TAB PO SCH ×2 (08:52→21:49)
[2019-12-14] MEDS: INSULIN GLARGINE SOLOSTAR 100 UNITS/ML 3 ML PEN SC SCH ×2 (08:52→21:51)
[2019-12-14] MEDS: OMEGA-3 (PURIFIED FISH OIL) 1 GM CAP PO SCH (08:53)
[2019-12-14] MEDS: PANTOprazole 40 MG TAB PO SCH ×2 (08:53→21:49)
[2019-12-14] MEDS: METFORMIN HCL 500 MG TAB PO SCH ×2 (08:53→18:12)
[2019-12-14] MEDS: HEPARIN SOD 5,000 UNIT/0.5 ML VIAL SQ SCH ×2 (08:53→21:52)
[2019-12-14] MEDS: HYDROCODONE/ACETAMINOPHEN 10/325 TAB PO SCH ×2 (08:57→21:49)
[2019-12-14] MEDS ORDERED: SODIUM CHLORIDE 0.9% 1000ML 1,000 ML IV SCH (10:30)
--- NOTE | 2019-12-14 14:48 | Pharmacy Report ---
Pharmacy Glycemic Short Note 2 - Date of Service December 14, 2019 - Glycemic Short BSG Results (Last 24 hours): 12/13/19 12/13/19 12/14/19 17:25 20:15 08:18 POC Glucose 141 H 158 H 155 H 12/14/19 12:18 POC Glucose 245 H OUTPATIENT ANTIDIABETIC REGIMEN: * Metformin 1 gm BID ASSESSMENT: * Patient is currently receiving an average of 48 units of insulin per day + metformin 1 gm BID * 25 units of basal insulin * 23 units of prandial/correctional insulin * BSGs ranging 141-245 over the past 24hrs * Risk factors for insulin resistance are constant over the past 24hrs * Metformin was just initiated today so I anticipate seeing improvement in BSGs within the next few days. Pre-lunch BSG has been consistently high so will tighten CR with breakfast to prevent this rise. PLAN FOR INPATIENT GLYCEMIC CONTROL: * Continue metformin 1 gm BID * Basal insulin * Lantus BID per the following scale: * 13 units for BSG 180 or less * 19 units for BSG > 180 * Bolus insulin * NovoLog per scale ACHS or Q6hrs while NPO * Goal Range: Low 110 mg/dL - High 140 mg/dL * Correction Factor: 20 mg/dL/unit * Nutritional / Prandial insulin per carb ratio of 1 unit per 6 grams CHO consumed with breakfast, 1 unit per 7 gm with lunch/dinner/HS PLAN FOR DISCHARGE: * tbd
--- NOTE | 2019-12-14 17:09 | Hospitalist Progress Note ---
Date of Service December 14, 2019 Assessment & Plan (1) Right leg numbness: - Presented with RLE numbness over the last few months and recurrent falls at home. - H/o L4-L5 laminectomies completed by Dr. Kuo. - Lumbar spine MRI with severe central canal stenosis at L2-L3 with disc bulge, left paracentral disc protrusion at L2-L3. - Brain MRI was negative for acute CVA. - Lumbar spine changes likely leading to acute symptoms. Continue home Gabapentin 400 mg qhs. - Consulted Dr. Zapien - surgical intervention would be quite extensive - recommends course of PT and considering interventional pain management evaluation prior to embarking on surgery - Seems some improvement with mobility of RLE today compared to previous days. Knees leave some chronic ROM limitations but able to lift the RLE better today (2) Falls: - Possibly related to osteoarthritis of bilat knees vs. lumbar spine changes leading to RLE weakness. - Did fall off the commode last night as he was leaning forward - PT/OT evaluation - recommendations for rehab - referral to [facility] and anticipate D/C tomorrow (3) Osteoarthritis: - Pt. reports he will need bilat knee arthroplasties in January -- first surgery is currently scheduled 01/11/[address] Angel. - Pt. to be evaluated next week to determine if he is a surgical candidate - discussed with Dr. Angel's PA on the floor today (4) Pancreatic mass: - Pancreatic tail mass noted on CT A/P in Jul 2019. - MRI Aug 2019 showed multiple cystic foci in pancreas including the tail -- consider intrapancreatic pseudocysts vs. cystic neoplasm. - S/P EGD on 11/30: small esophageal varices, portal hypertensive gastropathy. - GI recommends an EUS with Dr. Pa -- currently scheduled in January 2020. - Recommend completion of EUS in January without further delay in study to diagnose pancreatic mass -- concern for underlying malignancy. (5) Chronic back pain: - Continue Gabapentin 400 mg qhs, [place] 10/325 BID. (6) Hypertension: - Continue Propanolol with hold parameters - Holding home Lisinopril and Norvasc for now - due to a couple lower BP readings this afternoon -- Maybe some dehydration given elevated BSGs? dizziness seems to have improved and even weakness slightly improved (7) Depression: - Continue Effexor as prescribed. (8) Diabetes mellitus, type 2: - A1C is 9.3 which is up from the end of last year - SSI coverage with accuchecks. Pharm consult due to hyperglycemia; had some low BSGs this afternoon but improved -- His Metformin was reinstituted (9) GERD (gastroesophageal reflux disease): - PPI BID. (10) Iron deficiency anemia: - STABLE - Hgb currently at 10.7 - Possibly related to slow bleeding from varices, h/o gastropathy. - Continue ferrous sulfate BID. (11) Liver cirrhosis, alcoholic: - H/o ETOH abuse; pt. reports drinking 1-2 beers per day. - Recommend complete cessation of ETOH at home; no signs of active withdrawal at this time (12) Esophageal varices: - Continue Propanolol 40 mg BID. (13) Elevated alkaline phosphatase level: - In setting of liver cirrhosis. - Monitor levels intermittently. (14) Thrombocytopenia: - Plt count stable; in setting of liver cirrhosis. - Continue Heparin if plt >100K. (15) Hypercholesterolemia: - Atorvastatin 80 mg qhs. DVT ppx: Heparin BID. Dispo: Referral to [facility]; consider outpatient pain management appt; Plan on SNF tomorrow Admission and Anticipated Discharge Date Admission Date: December 13, 2019 Subjective Reports feeling pretty good today. Had some mild dizziness this morning when walking around but was resolved this afternoon. Did have a fall forward off the toilet last night. He states he is a little stiff today but otherwise feels well. He states he is able to move his RLE better today then he has since admission. Some limitations on the R compared to L but improving. Review of Systems Constitutional: no fever and no chills Respiratory: no cough and no dyspnea Cardiovascular: no chest pain and no lightheadedness Gastrointestinal: no abdominal pain, no nausea, no vomiting, no constipation and no diarrhea/loose stools Genitourinary: no dysuria Musculoskeletal: + joint pain (knees - chronic) Integumentary: no rash Neurologic: + falls (on 12/12) Physical Exam Constitutional: WD/WN, vitals as above no acute distress Eyes: + anicteric sclerae ENMT: Ears: no hearing impairment Neck: trachea midline Respiratory: normal respiratory effort, lungs clear to auscultation Cardiovascular: RRR, no murmur, no edema Gastrointestinal (Abdomen): Inspection/Auscultation: normal bowel sounds Percussion/Palpation: abdomen soft; abdomen nontender Musculoskeletal: Head/Neck/Chest: normocephalic and head atraumatic slightly reduced strength to RLE to dorsiflexion of R foot and flexion at hip compared to LLE Skin: no rashes, warm and dry Results & Data ([facility]) Vital Signs (Past 12 Hours) Vital Signs Temp Pulse Resp BP Pulse Ox 12/14/19 15:47 36.4 C L 57 L 16 120/63 96 12/14/19 07:50 36.5 C 66 16 135/69 95 PG Care Time/CCT Total # of Minutes Spent Total Time Spent with Patient: Total time spent is greater than 50% in coordination of care (as documented) at patient's floor/unit and/or counseling patient: Coding Level of Care Code 78490 Subseq Hosp Care Lvl 2 Diagnoses Right leg numbness R20.0 Falls W19.XXXA Osteoarthritis M19.90 Pancreatic mass K86.89 Chronic back pain M54.9; G89.29 Hypertension I10 Depression F32.9 Diabetes mellitus, type 2 E11.9 GERD (gastroesophageal reflux disease) K21.9 Iron deficiency anemia D50.9 Liver cirrhosis, alcoholic K70.30 Esophageal varices I85.00 Elevated alkaline phosphatase level R74.8 Thrombocytopenia D69.6 Hypercholesterolemia E78.00
[2019-12-14] MEDS: GABAPENTIN 400 MG CAP PO SCH (21:49)
[2019-12-14] MEDS: ATORVASTATIN 40 MG TAB PO SCH (21:49)
[2019-12-14] MEDS: ACETAMINOPHEN 325 MG TAB PO PRN (23:25)
[2019-12-15 05:59] LABS: Hematocrit (blood only) 33.8 % (42-52); Hemoglobin 10.3 g/dL (14.0-18.0); Mean Corpuscular Hemoglobin 24.3 pg (25-34); Mean Corpuscular Hgb Conc 30.5 g/dL (32-36); Mean Corpuscular Volume 79.9 fL (80-100); Mean Platelet Volume 10.3 fL (7.4-10.4); Platelet Count 112 K/uL (130-400); RDW Coefficient of Variation 18.6 % (11.5-14.5); RDW Standard Deviation 53.1 fL (36.4-46.3); Red Blood Count 4.23 M/uL (4.7-6.1); White Blood Count 5.62 K/uL (4.8-10.8)
[2019-12-15 06:39] LABS: BUN Creatinine Ratio 13.3 (10-20); Calcium 8.6 mg/dl (8.5-10.1); Potassium 3.6 mmol/L (3.5-5.1)
[2019-12-15] MEDS ORDERED: INSULIN ASPART 100 UNITS/ML 3 ML PEN SC SCH (07:30)
[2019-12-15] MEDS: VENLAFAXINE HCL XR 75 MG CAPXR PO SCH (08:39)
[2019-12-15] MEDS: METFORMIN HCL 500 MG TAB PO SCH (08:39)
[2019-12-15] MEDS: FERROUS SULFATE 325 MG TAB PO SCH (08:39)
[2019-12-15] MEDS: PROPRANOLOL HCL 20 MG TAB PO SCH (08:39)
[2019-12-15] MEDS: OMEGA-3 (PURIFIED FISH OIL) 1 GM CAP PO SCH (08:39)
[2019-12-15] MEDS: PANTOprazole 40 MG TAB PO SCH (08:39)
[2019-12-15] MEDS: HEPARIN SOD 5,000 UNIT/0.5 ML VIAL SQ SCH (08:41)
[2019-12-15] MEDS: HYDROCODONE/ACETAMINOPHEN 10/325 TAB PO SCH (08:45)
[2019-12-15] MEDS: INSULIN ASPART 100 UNITS/ML 3 ML PEN SC SCH (12:39)
--- NOTE | 2019-12-15 12:45 | Discharge Summary ---
Date of Service December 15, 2019 Admission HPI Per Admitting Provider The patient is a 79-year-old male with a past medical history including hyperglycemia, carpal tunnel syndrome, esophageal stricture, pancreatic mass, hydrocele, right inguinal hernia, inguinal hernia surgery, hypertension, depression, diabetes mellitus type 2, GERD, alcoholic liver cirrhosis, lumbar disc herniation, status post L4-5 laminectomies, esophageal varices, fatty liver, hypercholesterolemia, restless leg syndrome and thrombocytopenia. Patient reports to the emergency department after developing right leg numbness and right fourth and fifth finger numbness after successive falls earlier this week prior to arrival. He denies any lightheadedness or dizziness associate with the falls, and reports that they were purely mechanical falls. Principal Diagnosis Neurogenic Claudication due to Lumbar Spinal Stenosis Discharge Exam Constitutional WD/WN, vitals as above no acute distress Eyes + anicteric sclerae ENMT Ears: no hearing impairment Neck trachea midline Respiratory normal respiratory effort, lungs clear to auscultation Cardiovascular RRR, no murmur, no edema Gastrointestinal (Abdomen) Inspection/Auscultation: normal bowel sounds Percussion/Palpation: abdomen soft; abdomen nontender Musculoskeletal Head/Neck/Chest: normocephalic and head atraumatic Skin no rashes, warm and dry Psychiatric A+Ox3, euthymic affect Discharge Data Allergies Allergy/AdvReac Type Severity Reaction Status Date / Time No Known Allergies Allergy Verified 12/11/19 19:55 Consultations 12/11/19 20:25 ED Decision to Admit Stat 12/11/19 23:29 Consult Case Management - Discharge Planning Routine 12/12/19 09:50 Consult Orthopedic Surgery Routine Ordered Studies 12/11/19 17:28 CT lumbar spine wo con Stat 12/11/19 17:29 CT angio head w con Stat CT angio neck with con Stat CT head/brain wo con Stat 12/11/19 20:25 MR brain wo/w con Stat MR lumbar spine wo con Stat Hospital Course (1) Right leg numbness: - Presented with RLE numbness over the last few months and recurrent falls at home. - H/o L4-L5 laminectomies completed by Dr. Kuo. - Lumbar spine MRI with severe central canal stenosis at L2-L3 with disc bulge, left paracentral disc protrusion at L2-L3. - Brain MRI was negative for acute CVA. - Lumbar spine changes likely leading to acute symptoms. Continue home Gabapentin 400 mg qhs. - Consulted Dr. Zapien - surgical intervention would be quite extensive - recommends course of PT and consider interventional pain management evaluation prior to embarking on surgery - Seems some improvement with mobility of RLE today compared to previous days. Knees leave some chronic ROM limitations but able to lift the RLE better today (2) Falls: - Possibly related to osteoarthritis of bilat knees vs. lumbar spine changes leading to RLE weakness. - Did fall off the commode during hospitalization as he was leaning forward he ultimately tipped over - PT/OT evaluation - recommendations for rehab - will go to [facility] for rehab (3) Osteoarthritis: - Pt. reports he will need bilat knee arthroplasties in January -- first surgery is currently scheduled 01/11/[address] Angel. - Pt. to be evaluated next week to determine if he is a surgical candidate - discussed with Dr. Angel's PA on the floor yesterday (4) Pancreatic mass: - Pancreatic tail mass noted on CT A/P in Jul 2019. - MRI Aug 2019 showed multiple cystic foci in pancreas including the tail -- consider intrapancreatic pseudocysts vs. cystic neoplasm. - S/P EGD on 11/30: small esophageal varices, portal hypertensive gastropathy. - GI recommends an EUS with Dr. Pa -- currently scheduled in January 2020. - Recommend completion of EUS in January without further delay in study to diagnose pancreatic mass -- concern for underlying malignancy? (5) Chronic back pain: - Continue Gabapentin 400 mg qhs, [place] 10/325 BID. (6) Hypertension: - Continue Propanolol with hold parameters - Lisinopril and Norvasc (7) Depression: - Continue Effexor as prescribed. (8) Diabetes mellitus, type 2: - A1C is 9.3 which is up from the end of last year - Continue Metformin - can further titrate regimen as outpatient - would recommend slow improvement of A1c given age and risk of adverse effects of hypoglycemia (9) GERD (gastroesophageal reflux disease): - PPI BID. (10) Iron deficiency anemia: - STABLE - Hgb currently at 10.7 - Possibly related to slow bleeding from varices, h/o gastropathy. - Continue ferrous sulfate BID. (11) Liver cirrhosis, alcoholic: - H/o ETOH abuse; pt. reports drinking 1-2 beers per day. - Recommend complete cessation of ETOH at home; no signs of active withdrawal at this time (12) Esophageal varices: - Continue Propanolol 40 mg BID. (13) Elevated alkaline phosphatase level: - In setting of liver cirrhosis. - Monitor levels intermittently. (14) Thrombocytopenia: - Plt count stable; in setting of liver cirrhosis. (15) Hypercholesterolemia: - Atorvastatin 80 mg qhs. DVT ppx: Heparin BID. Dispo: [facility] for rehab; consider outpatient pain management appt; F/U with PCP; F/U with Dr. Zapien (Ortho Spine) in 2-3 weeks; F/U Orthopedics for knee surgery evaluations; Already established GI appointments Total Time Total Time Spent Total Time Spent (In Minutes): Greater than 30 minutes Discharge Plan Discharge Items Patient Disposition: Transfer Long Term Fac Reason For Visit: RLE NUMBNESS, RUE ULNAR NEUROPATHY POST FALL X2 Discharge Diagnosis: RLE Numbness; Falls Activity: Resume your previous activity Non-emergency contact: Primary Care Provider Call non-emergency contact if: you have any medication questions, your symptoms worsen and you have a fever Follow-up/Referrals: Yuan Zapien DO [Surgeon] - (Dr. Zapien wants to see in 2-3 weeks in office, please schedule for patient) Amy Fowler PA-C [Primary Care Provider] - Diet: Carb Consistent or DM2 Addtl Attending Provider Instructions: Right leg numbness: - Presented with RLE numbness over the last few months and recurrent falls at home. - H/o L4-L5 laminectomies completed by Dr. Kuo. - Lumbar spine MRI with severe central canal stenosis at L2-L3 with disc bulge, left paracentral disc protrusion at L2-L3. - Brain MRI was negative for acute CVA. - Lumbar spine changes likely leading to acute symptoms. Continue home Gabapentin 400 mg qhs. - Consulted Dr. Zapien - surgical intervention would be quite extensive - recommends course of PT and considering interventional pain management evaluation prior to embarking on surgery - Seems some improvement with mobility of RLE yesterday and today compared to previous days. Knees leave some chronic ROM limitations but able to lift the RLE better today. -- Seems to have some knee buckling Falls: - Possibly related to osteoarthritis of bilat knees vs. lumbar spine changes leading to RLE weakness. - PT/OT evaluation - recommendations for rehab - referral to [facility] and anticipate D/C tomorrow Osteoarthritis: - Pt. reports he will need bilat knee arthroplasties in January -- first surgery is currently scheduled 01/11/[address] Angel. - Pt. to be evaluated next week (possibly ) to determine if he is a surgical candidate - discussed with Dr. Angel's PA on the floor yesterday Pancreatic mass: - Pancreatic tail mass noted on CT A/P in Jul 2019. - MRI Aug 2019 showed multiple cystic foci in pancreas including the tail -- consider intrapancreatic pseudocysts vs. cystic neoplasm. - S/P EGD on 11/30: small esophageal varices, portal hypertensive gastropathy. - GI recommends an EUS with Dr. Pa -- currently scheduled in January 2020. - Recommend completion of EUS in January without further delay in study to diagnose pancreatic mass -- concern for underlying malignancy. Chronic back pain: - Continue Gabapentin 400 mg qhs, [place] 10/325 BID. Hypertension: - Continue Propanolol - Continue Lisinopril and Norvasc Depression: - Continue Effexor as prescribed. Diabetes mellitus, type 2: - A1C is 9.3 which is up from the end of last year - Continue Metformin - can follow up with family doctor for needs for medication adjustment - avoid hypoglycemia GERD (gastroesophageal reflux disease): - PPI BID. Iron deficiency anemia: - STABLE - Hgb currently at 10.7 - Possibly related to slow bleeding from varices, h/o gastropathy. - Continue ferrous sulfate BID. Liver cirrhosis, alcoholic: - H/o ETOH abuse; pt. reports drinking 1-2 beers per day. - Recommend complete cessation of ETOH at home; no signs of active withdrawal at this time Esophageal varices: - Continue Propanolol 40 mg BID. Elevated alkaline phosphatase level: - In setting of liver cirrhosis. Thrombocytopenia: - Plt count stable; in setting of liver cirrhosis. Hypercholesterolemia: - Atorvastatin 80 mg qhs. Pending Studies at Discharge: No Stand-Alone Forms: My [employer] Skilled Items Patient informed of condition?: Yes DNR: No Discharge Level of Care: Skilled Communicable Disease: No Discharge Prognosis: Stable Lines: None Urinary Catheter: No Medications and DC Order Prescriptions: Continued lisinopril 20 mg tablet 10 mg PO QAM RF: 0 propranolol 40 mg tablet 40 mg PO BID 30 Days Qty: 60 RF: 0 gabapentin 400 mg capsule 400 mg PO HS RF: 0 atorvastatin 80 mg tablet 80 mg PO HS RF: 0 omega-3 fatty acids [Fish Oil Concentrate] 1,000 mg capsule 1,000 mg PO QAM RF: 0 pantoprazole 40 mg tablet,delayed release (DR/EC) 40 mg PO BID RF: 0 metformin 1,000 mg tablet 1,000 mg PO BID RF: 0 lidocaine 5 % Adhesive Patch,Medicated 1 patch TOPICAL BID PRN (Reason: Pain) RF: 0 hydrocodone-acetaminophen 10-325 mg Tablet 1 tab PO BID 3 Days Qty: 6 RF: 0 amlodipine 5 mg tablet 5 mg PO QAM RF: 0 ferrous sulfate [Iron (ferrous sulfate)] 325 mg (65 mg iron) Tablet 325 mg PO BID RF: 0 venlafaxine 75 mg capsule,extended release 24hr 225 mg PO QAM RF: 0 ascorbic acid (vitamin C) [Vitamin C] 250 mg Tablet 250 mg PO QPM RF: 0 Discharge Orders: Discharge Order (Routine); Ordered 12/15/19 Ordered By: Catie Rosario Admission Data Admit Date/Time: 12/13/19 08:04 Attending Provider: Duane Banda Admit Provider: Lon Pace Primary Care Provider: Amy Fowler Other Providers: Lon Pace ; Yuan Zapien ; Sherry Liu Other Interventions: Discharge Summary Assessment (RN) Last Done: 12/15/19 12:06 DC Date/Time DO NOT enter until pt leaves facility: 12/15/19 14:18 Supervising Physician Co-Signing Physician Notes Attending note: patient seen and examined with Catie Rosario PA-C. I agree with her discharge summary. I personally reviewed the labs and imaging findings. patient feels ready for rehab today, just finished lunch when I saw him, appetite intact he is urinating, moving his bowels, breathing stable, no chest pain we had a long discussion about his back and his knees, difficult to know what needs fixed first told him to discuss with Dr. Angel and Dr. Zapien in the clinic - Neurogenic claudication, radiculopathy from degenerative disc disease symptoms improving, still with a degree of paresthesias in the right leg complicated by osteoarthritis of both knees with pain and instability he likely needs surgery to his knees but also his lumbar spine will follow up with Dr. Angel to discuss the TKA on the right will also follow up with Dr. Zapien for further recommendations in regards to his lumbar spine will d/c to rehab to continue to work on his strength and mobility and safety Coding Level of Care Code D/C Day Management >30 mins Diagnoses Right leg numbness R20.0 Falls W19.XXXA Osteoarthritis M19.90 Pancreatic mass K86.89 Chronic back pain M54.9; G89.29 Hypertension I10 Depression F32.9 Diabetes mellitus, type 2 E11.9 GERD (gastroesophageal reflux disease) K21.9 Iron deficiency anemia D50.9 Liver cirrhosis, alcoholic K70.30 Esophageal varices I85.00 Elevated alkaline phosphatase level R74.8 Thrombocytopenia D69.6 Hypercholesterolemia E78.00
--- NOTE | 2019-12-15 13:15 | Pharmacy Report ---
Pharmacy Glycemic Short Note 2 - Date of Service December 15, 2019 - Glycemic Short BSG Results (Last 24 hours): 12/14/19 12/14/19 12/14/19 17:06 17:08 17:30 Glucose POC Glucose 63 L* 65 L* 71 12/14/19 12/15/19 12/15/19 20:40 05:42 08:16 Glucose 79 POC Glucose 148 H 102 H 12/15/19 12:00 Glucose POC Glucose 213 H OUTPATIENT ANTIDIABETIC REGIMEN: * Metformin 1 gm BID ASSESSMENT: 12/14 * Patient is currently receiving an average of 53 units of insulin per day + metformin * 26 units of basal insulin * 27 units of prandial/correctional insulin * BSGs ranging 63-213 over the past 24hrs * Risk factors for insulin resistance are constant over the past 24hrs * Anticipating insulin regimen will need decreased for the next 24hrs d/t : * Metformin now back on board * AM Fasting BSG = 79 therefore Basal insulin needs decreased * BSGs trending downwards throughout the day (insulin stacking). CR was loosened last evening when patient had a low at dinner. I suspect this was more related to the correctional insulin. Will tighten CR slightly and loosen CF. 12/13 * Patient is currently receiving an average of 48 units of insulin per day + metformin 1 gm BID * 25 units of basal insulin * 23 units of prandial/correctional insulin * BSGs ranging 141-245 over the past 24hrs * Risk factors for insulin resistance are constant over the past 24hrs * Metformin was just initiated today so I anticipate seeing improvement in BSGs within the next few days. Pre-lunch BSG has been consistently high so will tighten CR with breakfast to prevent this rise. PLAN FOR INPATIENT GLYCEMIC CONTROL: * Continue metformin 1 gm BID * Basal insulin - decrease * Lantus 15 units qHS * Bolus insulin - loosen CF, tighten CR back * NovoLog per scale ACHS or Q6hrs while NPO * Goal Range: Low 110 mg/dL - High 140 mg/dL * Correction Factor: 30 mg/dL/unit * Nutritional / Prandial insulin per carb ratio of 1 unit per 7 grams CHO consumed with breakfast, 1 unit per 8 gm with lunch/dinner/HS PLAN FOR DISCHARGE: * A1c 9.3% on 12/11/19 * Goal A1c < 8% based on age/comorbidities * Patient was not typically checking BSGs or monitoring CHO intake [employer] but will be going to [facility] on discharge, so glycemic control may improve with better compliance * Recommend to continue metformin on discharge and consider adding a second oral agent in the future if A1c does not improve
[2019-12-15] MEDS ORDERED: INSULIN GLARGINE SOLOSTAR 100 UNITS/ML 3 ML PEN SC SCH (21:00)
== END 2019-12-15 14:18 | DRG 552 ==
LOC: ED 15:10 → 3E 15:10 → SUATTDRO 21:38 → 3E 22:40

== ENCOUNTER 2020-11-12 06:31 | Observation (INO) ==
--- NOTE | 2020-10-14 09:07 | PAT Medication Instructions ---
Medication Instructions Date of Service October 14, 2020 Home Medications Medication Instructions Recorded miscellaneous medical supply 1 ea MS .COMPLEX #1 ea 02/06/20 miscellaneous medical supply 1 ea MS .COMPLEX #2 ea 02/06/20 metformin 1,000 mg tablet 1,000 mg PO BID #180 tab 05/30/20 atorvastatin 80 mg PO HS ferrous sulfate [Iron (ferrous sulfate)] 325 mg PO BID venlafaxine 225 mg PO QAM cyclobenzaprine 10 mg tablet 10 mg PO TID PRN gabapentin 100 mg capsule 400 mg PO HS lisinopril 20 mg tablet 20 mg PO QAM oxycodone 5 mg tablet 5 mg PO BID PRN pantoprazole 40 mg tablet,delayed release 40 mg PO QAM ropinirole 0.25 mg tablet 0.5 mg PO HS metformin 1,000 mg tablet 1,000 mg PO BID alogliptin 25 mg tablet 25 mg PO QAM DO NOT take the morning of surgery ferrous sulfate [Iron (ferrous sulfate)] 325 mg PO BID cyclobenzaprine 10 mg tablet 10 mg PO TID PRN lisinopril 20 mg tablet 20 mg PO QAM metformin 1,000 mg tablet 1,000 mg PO BID alogliptin 25 mg tablet 25 mg PO QAM Take morning of surgery With a small sip of water, OTHERWISE NOTHING TO EAT OR DRINK AFTER MIDNIGHT: venlafaxine 225 mg PO QAM oxycodone 5 mg tablet 5 mg PO BID PRN (okay to take up to 4 hours prior to surgery if needed) pantoprazole 40 mg tablet,delayed release 40 mg PO QAM Take evening before surgery atorvastatin 80 mg PO HS ferrous sulfate [Iron (ferrous sulfate)] 325 mg PO BID cyclobenzaprine 10 mg tablet 10 mg PO TID PRN (if needed) gabapentin 100 mg capsule 400 mg PO HS oxycodone 5 mg tablet 5 mg PO BID PRN (if needed) ropinirole 0.25 mg tablet 0.5 mg PO HS metformin 1,000 mg tablet 1,000 mg PO BID Other Notes If you have any questions please call us at [phone] or [phone] or [phone] or [phone]
--- NOTE | 2020-10-16 09:15 | Anesthesiology Consultation ---
Date of Service October 16, 2020 Assessment & Plan (1) Encounter for pre-operative examination: - Per assessment on 10/16: Travel screen negative. No known COVID-19 positive contacts or current COVID-19 related symptoms. Surgeon arranging preop COVID te sting. Awaiting results. - Check BSG AM DOS - S/P Right open inguinal hernia repair with mesh: 09/14/19: LMA#5 at [facility] - GI office visit: 08/02/20: "Intraductal papillary mucinous neoplasm of pancre as.. Repeat MRI ~06/2021 for IPMN surveillance.. Follow up with hematology as scheduled.. Current with variceal surveillance.. Recent labs reviewed. HCC surveillance in 6 months.. Continue Pantoprazole 40 mg BID.. Avoid NSAIDs. Limit Tylenol to 2 g maximum in 24 hours.. Follow up in 6 months or sooner if needed." Chart Review Chart Review: Acceptable Risk for Surgery (pending evaluation AM DOS) and Patient seen in Pre Admission Testing Teaching & Discussion Pre-Anesthesia Teaching/Discussion Notes: Instructed NPO after midnight before surgery,except medications with 15 cc of water. Medication instructions provided according to the PAT guidelines. History Surgery Operation Date: 11/12/20 07:00 Proposed Procedures p Right Total Knee Arthroplasty - Khoa Fink MD Height/Weight Height: 5 ft 9 in Weight: 78.6 kg Allergies Allergy/AdvReac Type Severity Reaction Status Date / Time No Known Drug Allergies Allergy Verified 09/27/20 12:51 Medications Home Medications Medication Instructions Recorded Confirmed Last Taken atorvastatin 80 mg PO HS 06/13/19 09/27/20 12/28/19 21:00 ferrous sulfate [Iron (ferrous 325 mg PO BID 11/21/19 09/27/20 12/29/19 09:00 sulfate)] venlafaxine 225 mg PO QAM 11/21/19 09/27/20 12/29/19 09:00 cyclobenzaprine 10 mg tablet 10 mg PO TID PRN 01/31/20 09/27/20 Unknown gabapentin 100 mg capsule 400 mg PO HS cap 01/31/20 09/27/20 Unknown lisinopril 20 mg tablet 20 mg PO QAM tab 01/31/20 09/27/20 Unknown oxycodone 5 mg tablet 5 mg PO BID PRN 01/31/20 09/27/20 Unknown pantoprazole 40 mg tablet,delayed 40 mg PO QAM tab 01/31/20 09/27/20 Unknown release ropinirole 0.25 mg tablet 0.5 mg PO HS tab 01/31/20 09/27/20 Unknown miscellaneous medical supply 1 ea MS .COMPLEX #1 ea 02/06/20 09/27/20 Unknown miscellaneous medical supply 1 ea MS .COMPLEX #2 ea 02/06/20 09/27/20 Unknown metformin 1,000 mg tablet 1,000 mg PO BID #180 tab 05/30/20 09/27/20 Unknown alogliptin 25 mg tablet 25 mg PO QAM 08/02/20 09/27/20 Unknown Past Medical History Medical History (Updated 10/16/20 @ 12:28 by Marlene Barron) Anemia chronic, baseline hgb 10-11 range per chart review Anxiety Bilateral primary osteoarthritis of knee Carpal tunnel syndrome Cervical spondylosis without myelopathy Chronic gastric ulcer remote hx per records, pt states unaware Depression Diabetes mellitus, type 2 NIDDM Esophageal varices Grade 1 small varices in the lower third of the esophagus per 09/30/20 EGD, undergoes routine surveillance EGDs Fatty liver GERD (gastroesophageal reflux disease) controlled Hiatal hernia History of gastric polyp History of prostate cancer s/p prostatectomy (1998), no chemo/no radiation Hypercholesterolemia Hypertension 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, alcoholic hx small esophageal varices (09/2020) under surveillance, no banding indicated on most recent EGD, follows with [facility], stable Lumbar stenosis Pancreatitis 2017 Restless legs syndrome Thrombocytopenia hx cirrhosis, chronic mild thrombocytopenia Exercise / Class Metabolic Activity III < 4 Walking/Shop/Light housework (uses walker/cane prn) Past Family History Family History Sister Family history of diabetes mellitus Breast cancer Mother Colorectal cancer Brother Prostate cancer Colorectal cancer Father Myocardial infarction Son Thyroid disease Mother Family history of diabetes mellitus Sister Family history of diabetes mellitus Sister Family history of diabetes mellitus Other No family history of adverse response to anesthesia Denies family history of Ovarian cancer Past Surgical History Surgical History History of biopsy pancreatic mass biopsy on 07/01/2020 - benign History of colonoscopy (06/2018) History of cystoscopy d/t incontinence History of esophagogastroduodenoscopy (EGD) (11/2019) 11/30/19: MAC sedation at [facility] History of laminectomy X3 History of prostatectomy History of right inguinal hernia repair History of tooth extraction Hx of cervical spine surgery (12/2019) C3-C6 laminectomy, C3-T1 PCF Hx of inguinal hernia surgery (09/14/19) Open Right Inguinal Hernia Repair with Mesh: 09/14/19: LMA#5 at [facility] Past Anesthesia History No Hx of Anesthesia Complications and No Family Hx of Anesthesia Complications History of PONV No Hx of PONV and No Hx of Motion Sickness Social History Smoking Status: Never smoker Do You Dip or Chew Tobacco: No (Quit years ago) Hx Alcohol Use: Yes Alcohol type: beer alcohol intake frequency: 3 or more drinks per day (4 beers/day (evening)) Hx Substance Use: No substance use type: does not use Review of Systems Patient denies chest pain, shortness of breath, dyspnea on exertion, joint pain, reflux, cough, wheezing, palpitations. Physical Exam Vital Signs VITALS BP 139/71 P 70 TEMP 98.9 SP02 99%RA RESP 16 PHYSICAL Mildly decreased cervical extension 2/2 cervicalgia Full TMJ range of motion. TMD 3.5 finger breaths Mallampati Score 1 Dentition: intact Lungs: clear throughout to auscultation Cardiac: regular rate and rhythm, III/ systolic murmur Spine: normal Carotid arteries: negative bruit Extremities: no edema Testing Laboratory Results 10/16/20 09:36 10/16/20 09:36 PT 12.1 Seconds (9.0-12.0) H 10/16/20 09:36 INR 1.2 (0.9-1.1) H 10/16/20 09:36 APTT 31.2 Seconds (21.0-31.0) H 10/16/20 09:36 Hemoglobin A1c 5.8 % (4.5-5.6) H 10/16/20 09:36 Blood Type O Positive 10/16/20 09:36 Antibody Screen NEGATIVE 10/16/20 09:36 Mildly elevated coags in setting of cirrhosis (chronic issue). Surgeon made aware of CBC results* Electrocardiogram Date: 12/29/19 NSR at 61bpm. NS STA. Chest X-Ray Date: 12/29/19 Findings: + NAD Echocardiogram Date: 11/18/16 EF >70%. No RWMA. Moderate cLVH. Moderate AV sclerosis without significant aortic valve stenosis. Mild LAD. Mildly dilated ascending aorta. Stress Test Date: 02/08/19 Type: nuclear No scintigraphic evidence of a prior myocardial infarction or stress-induced myocardial ischemia. No Lexiscan induced chest pain. No Lexiscan induced EKG changes. Normal left ventricular systolic function without wall motion abnormality. Left ventricular ejection fraction is 75%.
[2020-10-16 10:50] LABS: Basophils # (auto) 0.02 K/uL (0-0.2); Basophils % (auto) 0.6 %; Eosinophils % (auto) 2.9 %; Hematocrit (blood only) 34.7 % (42-52); Hemoglobin 11.2 g/dL (14.0-18.0); Lymphocytes # (auto) 1.17 K/uL (1.2-3.4); Lymphocytes % (auto) 34.2 %; Mean Corpuscular Hemoglobin 28.8 pg (25-34); Mean Corpuscular Hgb Conc 32.3 g/dL (32-36); Mean Corpuscular Volume 89.2 fL (80-100); Mean Platelet Volume 11.1 fL (7.4-10.4); Monocytes # (auto) 0.33 K/uL (0.11-0.59); Monocytes % (auto) 9.6 %; Neutrophils % (auto) 52.7 %; Platelet Count 127 K/uL (130-400); RDW Coefficient of Variation 15.5 % (11.5-14.5); RDW Standard Deviation 50.6 fL (36.4-46.3); Red Blood Count 3.89 M/uL (4.7-6.1); White Blood Count 3.42 K/uL (4.8-10.8)
[2020-10-16 10:59] LABS: INR 1.2 (0.9-1.1); Partial Thromboplastin Ratio 1.1; Partial Thromboplastin Time 31.2 Seconds (21.0-31.0); Prothrombin Time 12.1 Seconds (9.0-12.0)
[2020-10-16 11:09] LABS: Estimated Average Glucose 120 mg/dl; Hemoglobin A1C 5.8 % (4.5-5.6)
[2020-10-16 11:13] LABS: Calcium 8.8 mg/dl (8.5-10.1); Creatinine Clr Calc Pharmacy 85.7 ml/min; Est GFR (African American) 104.2; Est GFR (Non-African American) 89.9; Potassium 4.3 mmol/L (3.5-5.1)
--- NOTE | 2020-11-05 14:08 | History and Physical Report ---
DATE OF ADMISSION: 11/12/2020 CHIEF COMPLAINT: Bilateral knee pain and discomfort, right side greater than left. HISTORY OF PRESENT ILLNESS: The patient is a 80-year-old gentleman who presents specifically for surgical treatment of his knees. He has had a long history of knee problems that have gradually progressed over time. He was actually scheduled to have knee replacement done by Dr. Angel at [facility], but got canceled due to an emergent spine issue that was treated at [facility]. He has now recovered from that and would like to have his knees addressed. He has got chronic knee pain. The right side is a bit worse than the left. His knees hurt all the time. The more he walks, the more it hurts. He has been using a walker to get around for the past 9-10 months. PAST MEDICAL HISTORY: 1. Diabetes with an A1c of 5.8. 2. Depression. 3. Elevated cholesterol. 4. Hypertension. 5. Hepatitis. PAST SURGICAL HISTORY: Include: 1. Prostate surgery. 2. Lumbar spine surgery. 3. Neck surgery done in 12/2019 at [facility]. 4. Herniorrhaphy. ALLERGIES: None. CURRENT MEDICINES: Include: 1. Alogliptin 25 mg. 2. Vitamin C. 3. Atorvastatin 80 mg at nighttime. 4. Cyclobenzaprine 10 mg 3 times a day. 5. Iron sulfate. 6. Gabapentin 400 mg at nighttime. 7. Lisinopril 20 mg. 8. Metformin 1000 mg twice a day. 9. Fish oil. 10. Oxycodone p.r.n. 11. Pantoprazole 40 mg a day. 12. Requip 0.5 mg at nighttime. 13. Semaglutide 7 mg a day. 14. Venlafaxine 225 mg in the morning. SOCIAL HISTORY: Significant for 80-year-old male. He is . Three drinks per day. Two children. Does not smoke. FAMILY HISTORY: Significant for diabetes, heart disease, colon cancer, prostate cancer. REVIEW OF SYSTEMS: Significant for diabetes. Also has a history of relatively recent neck problem which is markedly improved after surgery. No chest pain or shortness of breath. No history of DVT or PE. PHYSICAL EXAMINATION: GENERAL: Healthy pleasant elderly male. Looks to be in reasonably good health. HEENT: Benign. NECK: Supple, no lymphadenopathy. LUNGS: Clear to auscultation. HEART: Has a regular rate and rhythm. ABDOMEN: Soft, nontender, nondistended. EXTREMITIES: Grossly neurovascularly intact except as follows. Examination of both knees reveals the patient ambulates with use of a walker. Examination of the right knee reveals varus alignment to his knee. He is tender over the medial joint line. He has got bony hypertrophy medially. Range of motion is 10 degrees short of full extension to 120 degrees of flexion. There is no instability. No pain with hip motion. Examination of left knee reveals a similar varus deformity. He has got bony hypertrophy medially. Some mild tenderness along the medial joint line. Range of motion 5-125. No instability. X-RAYS: X-rays of the right knee reviewed and show advanced right knee DJD. He has got complete loss of his medial joint space. He has got osteophytes off the medial femoral condyle and medial tibial plateau. He has got some patellofemoral disease as well. He has got very similar, but just a little bit less severe on the other knee. ASSESSMENT: A 80-year-old male with advanced bilateral knee degenerative joint disease, right side more symptomatic than the left. He has failed conservative treatment. He was actually scheduled for surgery in the past but canceled due to some neck issues which have been resolved. He would like to have his knee fixed. PLAN: We are going to proceed with right knee replacement. The risks and benefits of this procedure were explained to the patient including but not limited to DVT, PE, , infection, neurological injury, vascular injury, bleeding problem, pain, limited range of motion, stiffness, failure to relieve symptoms, incomplete relief of symptoms, need for further surgery in future, fracture, persistent pain, etc. The patient understands and desires to proceed. Informed consent was obtained. As far as discharge plans, he is planning to be discharged home with the use of the [facility] home health program. His who is a patient of mine will be able to assist him in a care.
[~2020-11-12 06:31] MED LIST changes: +ACETAMINOPHEN 500 MG TAB PO SCH; -AMLO10TA3 PO; -ATOR-26 PO; +BUPIVACAINE 0.5 % 5 MG/1 ML PF 10ML VIAL ONE; +BUPIVACAINE LIPOSOME/PF 266 MG, BUPIVACAINE/EPINEPHRINE 50 ML, SODIUM CHLORIDE 0.9% 30 ... INFIL SCH; -CYCL10TA6 PO; -EFF/375 PO; +FAMOTIDINE 20 MG TAB PO SCH; -GABA-112 PO; +GABAPENTIN 300 MG CAP PO SCH; -LDN500 PO; -LISI-726 PO; +LR 15ML/HR IV SCH; +LR 60ML/HR IV SCH; -METF1000 PO; +METOCLOPRAMIDE HCL 10 MG TABLET PO SCH; -OMEG10007 PO; -OPTIRAY 320 IV PRN; -PRLSR20 PO; -PROP40TA5 PO; +ROPIVACAINE 0.5% 5 MG/ML 30 ML VIAL ONE; +TRANEXAMIC ACID 1,000 MG **IV Intra-op IV SCH; +ceFAZolin 2000MG 2,000 MG/15 ML SYR IV SCH
[2020-11-12] MEDS ORDERED: SODIUM CHLORIDE 0.9% PF 50 ML VIAL ONE (06:37)
[2020-11-12] MEDS ORDERED: BUPIVACAINE LIPOSOME 1.3% 266 MG/20 ML VIAL ONE (06:38)
[2020-11-12] MEDS ORDERED: BACITRACIN INJ 50,000 UNIT VIAL ONE (06:38)
[2020-11-12] MEDS ORDERED: BUPIVACAINE 0.25% 30 ML VIAL ONE (06:38)
[2020-11-12] MEDS ORDERED: EPINEPHrine INJ 1 MG/ML AMP ONE (06:38)
[2020-11-12] MEDS ORDERED: MIDAZOLAM HCL 1 MG/ML 2ML VIAL ONE (06:55)
--- NOTE | 2020-11-12 07:01 | History & Physical Bridge Note ---
Date of Service November 12, 2020 History & Physical Bridge Note I have examined the patient, reviewed the History & Physical and in the interval since the performance of the History & Physical I have noted the following changes of clinical significance: no changes noted
[2020-11-12] MEDS ORDERED: ePHEDrine sulfate 50 MG/ML AMP IV PRN (07:46)
[2020-11-12] MEDS ORDERED: ATROPINE SULFATE 0.1 MG/ML 10ML SYR IV PRN (07:46)
[2020-11-12] MEDS ORDERED: ONDANSETRON INJ 2 MG/ML 2 ML VIAL IV PRN ×2 (07:46→10:56)
[2020-11-12] MEDS ORDERED: fentaNYL citrate 100 MCG/2 ML VIAL ONE (07:51)
[2020-11-12] MEDS ORDERED: PROPOFOL IV EMULSION 10 MG/ML 20 ML VIAL IV ONE (08:07)
[2020-11-12] MEDS ORDERED: ROCURONIUM BROMIDE 10 MG/ML 5 ML VIAL IV ONE (08:07)
[2020-11-12] MEDS ORDERED: ONDANSETRON INJ 2 MG/ML 2 ML VIAL ONE (08:07)
[2020-11-12] MEDS ORDERED: PHENYLEPHRINE 100MCG/ML 5ML SYR ONE (08:07)
[2020-11-12] MEDS ORDERED: GLYCOPYRROLATE 0.2 MG/ML VIAL ONE (08:30)
[2020-11-12] MEDS ORDERED: NEOSTIGMINE METHYLSULFATE 5 MG/5 ML SYR ONE (08:30)
--- NOTE | 2020-11-12 09:39 | Operative Report ---
Post Operative Report Pre & Post Diagnosis Operation Date: 11/12/20 07:00 Pre-Op Diagnosis: Right Knee Advanced Degenerative Joint Disease Post-Op Diagnosis: Right Knee Advanced Degenerative Joint Disease I identified the patient and participated in the time-out.: Yes Procedure Operation Date: 11/12/20 07:00 Actual Procedures p Right Total Knee Arthroplasty(Right) - Khoa Fink MD Surgeon Khoa Fink MD News Production Assistant SHIRAZ Swenson Estimated Blood Loss 50 Findings Consistent with Post-Op Diagnosis Operative findings revealed advanced right knee DJD. Extensive grade 4 [id number] disease and eburnation of the entire medial compartment. He had fairly moderate patellofemoral disease and very mild lateral compartment disease. He had a fixed varus deformity to his knee. Moderate to large knee joint effusion. Fluids 1000 cc. Specimens Right knee sent for pathology. Drains None. Anesthesia Type General Complications none Disposition Accompanied Patient To Recovery: No Disposition: Recovery Room Indications Patient is a 80-year-old gentleman has had a several year history of bilateral knee pain discomfort describes gotten worse despite conservative care. He was actually scheduled for knee replacement about a year ago but canceled due to an emergency spine issue with his cervical spine. He has a spine operated on about a year ago. He is recovered from this for the most part and elected proceed with right total knee arthroplasty at this time. X-rays show advanced knee arthritis in both knees. Description of Procedure Operative implants consist of: 1. Biomet Vanguard size 70 right posterior stabilized femoral component. 2. Biomet size 75 tibial tray. 3. 12 mm posterior stabilized polyethylene insert. 4. 31 x 8 all polypatella. The patient was taken to the operating identified and placed on the operating table supine position. All contact areas were appropriately padded. IV antibiotics tried by anesthesia team. A spinal anesthetic was attempted in the holding area but unsuccessful. They did do an abductor canal block. A general anesthetic was then implemented. A right thigh turn was then placed. The right lower extremity was then prepped and draped in usual sterile fashion. The right leg was elevated exsanguinated with use of an Esmarch and the tourniquet was placed at 300 mmHg. An anterior approach of the right knee was then performed through a longitudinal incision centered over the patella. Sharp dissection was got through subcutaneous tissue down to the extensor mechanism. A medial parapatellar arthrotomy incision was made. Some subperiosteal dissection was carried out medially. The fat pad was resected from each patella tendon. Lateral patellofemoral ligament was released. Patella was subluxated laterally and the knee was flexed. The osteophytes were taken off distal femur. The ACL and PCL were then released and distal femur the tibia subluxated anteriorly. The external tibial alignment jig was then placed in the interface the tibia and adjusted 14 mm medially. Proximal tibial cut was made to remove about 2 mm of bone from most efficient aspect medial tibial plateau. Some osteophytes were taken off medial and posterior medially. Attention drawn the femur. The tibia was sized to a size 75. The distal femur exam with a sharp drop with intramedullary canal was suction. A right 6 degree valgus cutting guide was placed. The distal femoral cutting block was pinned in place. Distal femoral cut was made to take an additional 3 mm of bone off distal femur. The femur was then sized to a size 70. The AP cutting block was pinned parallel to the epicondylar axis which was 3 degrees of external rotation. The anterior cut, anterior chamfer, posterior cut, posterior chamfer cuts were made. Box cutting guide was placed in just slight lateral and the box cut was made. The knee was flexed. The remnants of medial lateral menisci were excised. The osteophytes were taken off the posterior aspect of the femur. A trial femoral component was placed. The tibial tray was pinned in maximum external rotation and the drill and stem punch were used to create defect in proximal to for the tibial tray. The knee was then trialed and the 12 mm insert fit most appropriately. Attention drawn the patella. The patella was cleaned of all soft tissues. Patella thickness measured 27 mm in thickness and was cut down to 15. Was sized to a size 31 patella. Locals were drilled for the 31 patella. The lateral osteophyte is moved. Patella button was placed. Knee was taken through range of motion the patella tracked well with the no thumbs test. Attention drawn to place the permanent components. All trial components were removed. A bone plug was placed in the distal femur limit blood loss put a double batch of Palacos G cement was mixed. A BiomPhoenix S&Tguard size 70 right posterior stabilized femoral component, size 75 tibial tray, a 12 mm posterior stabilized polyethylene insert, and a 31 x 8 all polypatella were then cemented in place. Knee was brought out into full extension total cement hardened. Final cement check was then performed. The pericapsular tissues were injected with total 100 cc of combination of 20 cc of Exparel, 30 cc normal saline, 50 cc of quarter percent Marcaine with epinephrine. The patient did receive 1 g tranexamic acid. The tourniquet was then let down for final tourniquet time of 54 minutes. Hemostasis surgery was electrocautery. The wounds once again irrigated. Extensor mechanism closed with combination 1 PDS suture #1 Vicryl suture in [id number] fashion. Extensor mechanism checked found to be intact with subcutaneous tissue then closed with 2 Dexon suture in a buried interrupted fashion skin was closed skin chanelle. Leg was then cleaned dried a sterile dressing both Xeroform, 4 x 4's, sterile cast padding, Britton bandage were applied. The patient was then brought out of general incision transferred to the recovery room in stable condition. Patient tolerated procedure well and there were no complications. Kishan Swenson, my physician hearing and speech assistant, was present for the entire procedure. His assistance was essential and required for appropriate patient positioning, prepping and draping, surgical exposure, performing the technical details of the operation, placement the implants, closure of the wound, and placement of the sterile bandage. I attest to the content of the Intraoperative Record and any orders documented therein. Any exceptions are noted below.
[2020-11-12] MEDS ORDERED: HYDROmorphone INJ 2 MG/ML SYR/VIAL ONE (09:42)
--- NOTE | 2020-11-12 09:49 | XRay Report ---
RIGHT KNEE 2 VIEWS History: Right total knee arthroplasty. Degenerative arthritis. Postop. FINDINGS: The patient is status post a right total knee arthroplasty. The hardware is intact. No frac ture or dislocation. Skin chanelle are in place. IMPRESSION: Right total knee arthroplasty. No evidence for hardware complication. ACT 112: Negative or not required by law. Electronically signed by: Jose Barriga M.D. 11/12/2020 9:48 AM
[2020-11-12] MEDS: HYDROmorphone INJ 0.5 MG/0.5 ML SYR IV PRN ×8 (09:53→10:28)
--- NOTE | 2020-11-12 10:21 | Anesthesiology Progress Note ---
Date of Service November 12, 2020 Anesthesia Post Procedure Vital Signs Vital Signs: Temp Pulse Pulse Resp BP Pulse Ox 11/12/20 10:10 74 19 143/76 H 94 11/12/20 10:00 72 13 145/77 H 95 11/12/20 09:50 73 19 143/78 H 96 11/12/20 09:40 71 20 149/82 H 99 11/12/20 09:33 36.3 C L 73 73 10 L 144/84 H 97 11/12/20 06:57 37.2 C 83 20 152/85 H 97 Pain Intensity Right Knee: Pain Intensity: 8 Transfer of Care Handoff Completed per policy Notes Mental Status: alert / awake / arousable Patient Amnestic to Procedure: Yes Nausea / Vomiting: adequately controlled Pain: adequately controlled Airway Patency, RR, SpO2: stable & adequate BP & HR: stable & adequate Hydration State: stable & adequate Anesthetic Complications: no major complications apparent
[2020-11-12] MEDS ORDERED: GLUCOSE 40% GEL 15 GM TUBE PO PRN (10:56)
[2020-11-12] MEDS ORDERED: DEXTROSE 50% 50 ML SYRINGE IV PRN (10:56)
[2020-11-12] MEDS ORDERED: CARBOHYDRATES FOR HYPOGLYCEMIA PO PRN (10:56)
[2020-11-12] MEDS ORDERED: HYDROmorphone INJ 0.5 MG/0.5 ML SYR IV PRN (10:56)
[2020-11-12] MEDS ORDERED: bisacodyL 10 MG SUPP PR PRN (10:56)
[2020-11-12] MEDS ORDERED: METOCLOPRAMIDE HCL INJ 5 MG/ML 2 ML VIAL IV PRN (10:56)
[2020-11-12] MEDS ORDERED: NALOXONE HCL 0.4 MG/1 ML VIAL/CARP IV PRN (10:56)
[2020-11-12] MEDS ORDERED: GLUCOSE 10 TABS/TUBE PO PRN (10:56)
[2020-11-12] MEDS ORDERED: MAGNESIUM HYDROXIDE SUSP 30 ML UDC PO PRN (10:56)
[2020-11-12] MEDS ORDERED: GLUCAGON FOR INJ 1 MG VIAL SQ PRN (10:56)
[2020-11-12] MEDS ORDERED: TAMSULOSIN HCL 0.4 MG CAP PO PRN (10:56)
[2020-11-12] MEDS ORDERED: ALUMINUM/MAGNESIUM SUSP 30 ML UDC PO PRN (10:56)
[2020-11-12] MEDS ORDERED: CYCLOBENZAPRINE HCL 10 MG TAB PO PRN (11:02)
[2020-11-12] MEDS ORDERED: PHARMACY GLYCEMIC MGMT CONSULT PRN (11:21)
[2020-11-12] MEDS: oxyCODONE HCL IR 5 MG TAB (IMMEDIATE RELEASE) PO PRN ×2 (11:32→19:20)
[2020-11-12] MEDS: KETOROLAC TROMETHAMINE 15 MG/ML VIAL IV SCH ×3 (12:49→23:41)
[2020-11-12] MEDS: INSULIN ASPART 100 UNITS/ML 3 ML PEN SC SCH ×3 (12:58→21:12)
--- NOTE | 2020-11-12 13:26 | Pharmacy Report ---
Glycemic Ortho Sign Off Note - Date of Service November 12, 2020 - Scope Glycemic Pharmacist consulted for glycemic control and to write orders per [facility] inpatient glycemic control protocol. - Objective Accuchecks BSG (last 24hrs):: 11/12/20 11/12/20 11/12/20 06:55 09:39 12:14 POC Glucose 114 H 111 H 127 H HbA1c:: Hemoglobin A1c 5.8 % (4.5-5.6) H 10/16/20 09:36 - Assessment * Pt is maintained on oral antidiabeticagent[s]as anoutpatient with excellent control per recent A1c * Oral agents are not recommended for inpatient use d/t drug interactions, changing PO intake, and difficulty titrating for acute hyper/hypoglycemia. * Recommended regimen for inpatient use is SQ insulin * Low stress weight based insulin dosing appropriate since patient has minimal risk factors for insulin resistance (i.e. no steroids). * Appropriate to DC insulin and resume outpatient antidiabetic regimen at discharge * Goal is to maintain BSGs <200 mg/dl (ideally <150 mg/dl) to prevent post op complications - Plan For Inpatient Glycemic Control * Basal insulin * Not needed based on A1c, pre-op BSGs, and minimal risk factors for insulin resistance * Bolus insulin * Utilize low stress weight based NovoLog parameters per scale ACHS * Range 120-160, CF 30, CR -- * Pharmacy has entered glycemic orders and is signing off of the glycemic consult. We will no longer be making adjustments to inpatient regimen. Please feel free to re-consult if needed. Thank you.
[2020-11-12] MEDS: SODIUM CHLORIDE 0.9% 1000ML 1,000 ML IV SCH ×2 (14:17→21:38)
[2020-11-12] MEDS: ACETAMINOPHEN 500 MG TAB PO SCH ×2 (14:17→21:26)
[2020-11-12] MEDS ORDERED: TRANEXAMIC ACID / 0.7% NACL 1,000 MG/100 ML BAG IV SCH (15:30)
[2020-11-12] MEDS: ceFAZolin 1000MG 1,000 MG/7.5 ML SYR IV SCH ×2 (15:47→23:41)
[2020-11-12] MEDS: ASCORBIC ACID 500 MG TAB PO SCH (17:20)
[2020-11-12] MEDS: FERROUS GLUCONATE 324 MG TAB PO SCH (17:20)
--- NOTE | 2020-11-12 18:27 | Progress Notes ---
DATE: 11/12/2020 SUBJECTIVE: A 80-year-old gentleman postop from right knee replacement. He is doing pretty well. I had to wake him when I went in the room this afternoon. He is resting comfortably. His pain is controlled. No chest pain or shortness of breath. Not feeling dizzy or lightheaded. OBJECTIVE: VITAL SIGNS: Temperature 36.7. Vital signs stable. GENERAL: Shows a pleasant elderly male. I had to wake him this afternoon when entering the room. LUNGS: Clear to auscultation. HEART: Regular rate and rhythm. ABDOMEN: Soft, nontender, nondistended. EXTREMITIES: Grossly neurovascularly intact except as follows: Examination of the right lower extremity reveals the leg to be well aligned. He can dorsiflex and plantarflex his foot appropriately. He is neurologically intact. X-RAYS: X-rays of the right knee from recovery room are reviewed. It shows right cemented posterior stabilized total knee arthroplasty. Components looked to be in good position. No signs of problems. ASSESSMENT: A 80-year-old gentleman, postoperative from right knee replacement, doing well. His pain is controlled. He is neurologically intact. PLAN: 1. DVT prophylaxis including thigh-high TEDs, SCDs, and aspirin twice a day. 2. PT/OT. Weight bear as tolerated. Right total knee protocol. 3. Pain control, doing well with current pain regimen. 4. Disposition. He is planning to be discharged to home with some home health and his 's assistance once medically stable and adequately recovered.
[2020-11-12] MEDS ORDERED: GABAPENTIN 400 MG CAP PO SCH (21:00)
[2020-11-12] MEDS ORDERED: ATORVASTATIN 40 MG TAB PO SCH (21:00)
[2020-11-12] MEDS ORDERED: rOPINIRole HCL 0.25 MG TABLET PO SCH (21:00)
[2020-11-12] MEDS ORDERED: SENNA 8.6 MG TAB PO SCH (21:00)
[2020-11-12] MEDS: ASPIRIN 81 MG ECTAB PO SCH (21:26)
[2020-11-12] MEDS: TAPENTADOL HCL ER 50 MG TABCR PO SCH (21:26)
[2020-11-12] MEDS: DOCUSATE SODIUM 100 MG CAP PO SCH (21:29)
[2020-11-13] MEDS: oxyCODONE HCL IR 5 MG TAB (IMMEDIATE RELEASE) PO PRN ×2 (03:19→09:43)
[2020-11-13 06:26] LABS: Hematocrit (blood only) 29.9 % (42-52); Hemoglobin 9.6 g/dL (14.0-18.0); Mean Corpuscular Hemoglobin 28.2 pg (25-34); Mean Corpuscular Hgb Conc 32.1 g/dL (32-36); Mean Corpuscular Volume 87.7 fL (80-100); Mean Platelet Volume 10.3 fL (7.4-10.4); Platelet Count 100 K/uL (130-400); RDW Coefficient of Variation 15.3 % (11.5-14.5); RDW Standard Deviation 48.9 fL (36.4-46.3); Red Blood Count 3.41 M/uL (4.7-6.1); White Blood Count 3.66 K/uL (4.8-10.8)
[2020-11-13 06:51] LABS: BUN Creatinine Ratio 10.6 (10-20); Calcium 8.2 mg/dl (8.5-10.1); Creatinine Clr Calc Pharmacy 82.3 ml/min; Est GFR (African American) 102.4; Est GFR (Non-African American) 88.3
[2020-11-13] MEDS: ACETAMINOPHEN 500 MG TAB PO SCH ×2 (06:58→13:35)
[2020-11-13] MEDS: KETOROLAC TROMETHAMINE 15 MG/ML VIAL IV SCH ×2 (06:58→11:56)
[2020-11-13] MEDS: INSULIN ASPART 100 UNITS/ML 3 ML PEN SC SCH ×2 (08:35→12:50)
[2020-11-13] MEDS ORDERED: ALOGLIPTIN 25 MG PO SCH (09:00)
[2020-11-13] MEDS ORDERED: lisinopril 20 MG TAB PO SCH (09:00)
[2020-11-13] MEDS ORDERED: PANTOprazole 40 MG TAB PO SCH (09:00)
[2020-11-13] MEDS ORDERED: VENLAFAXINE HCL XR 75 MG CAPXR PO SCH (09:00)
[2020-11-13] MEDS ORDERED: MULTIVITAMIN TAB PO SCH (09:00)
[2020-11-13] MEDS: FERROUS GLUCONATE 324 MG TAB PO SCH (09:45)
[2020-11-13] MEDS: ASCORBIC ACID 500 MG TAB PO SCH (09:45)
[2020-11-13] MEDS: ASPIRIN 81 MG ECTAB PO SCH (09:46)
[2020-11-13] MEDS: DOCUSATE SODIUM 100 MG CAP PO SCH (09:49)
[2020-11-13] MEDS: TAPENTADOL HCL ER 50 MG TABCR PO SCH (09:49)
--- NOTE | 2020-11-13 12:19 | Progress Notes ---
DATE: 11/13/2020 SUBJECTIVE: A 80-year-old gentleman postoperative day 1 from a right knee replacement. He is doing quite well. Pain is controlled. No chest pain or shortness of breath. Not feeling dizzy or lightheaded. OBJECTIVE: VITAL SIGNS: Temperature 37.0. Vital signs stable. GENERAL: Shows a pleasant, elderly male. He is lying in bed, looks quite good this morning. LUNGS: Clear to auscultation. HEART: Regular rate and rhythm. ABDOMEN: Soft, nontender, nondistended. EXTREMITIES: Grossly neurovascularly intact except as follows: Examination of the right lower extremity reveals the leg to be well aligned. Dressing is clean, dry, and intact. He can dorsiflex and plantarflex his foot appropriately. He does have real good straight leg raise. He is neurologically intact. LABORATORY DATA: Hemoglobin is 9.6. Hematocrit 29.9. Electrolytes are stable. ASSESSMENT: A 80-year-old gentleman postoperative day 1 from a right knee replacement, doing pretty well. Pain is reasonably well controlled. He is a bit anemic, but asymptomatic. He is neurologically intact. PLAN: 1. DVT prophylaxis including thigh-high TEDs, SCDs, and aspirin twice a day. 2. PT/OT. He can weightbear as tolerated. Right total knee protocol. 3. Pain control, doing okay with current pain regimen. 4. Anemia. We will continue iron supplementation. He is asymptomatic. 5. Disposition: Plan to discharge to home with some home health if he does okay in therapy.
== END 2020-11-13 15:06 | disposition home health service (06) ==
LOC: ASU 06:31 → 3E 06:31

== ENCOUNTER 2020-12-05 15:23 | Inpatient (IN) ==
[2020-12-05] MEDS ORDERED: SODIUM CHLORIDE 0.9% 500 ML IV STA (15:56)
[2020-12-05] MEDS ORDERED: ONDANSETRON INJ 2 MG/ML 2 ML VIAL IV STA (15:56)
[2020-12-05] MEDS ORDERED: PANTOprazole 80 MG in DEXTROSE 5% 100 ML IV ONE (15:56)
[2020-12-05] MEDS ORDERED: PANTOPRAZOLE BOLUS/DRIP 1 EA IV STA (15:56)
[2020-12-05] MEDS ORDERED: SODIUM CHLORIDE 0.9% 250 ML IV PRN (15:56)
--- NOTE | 2020-12-05 16:05 | Emergency Department Note ---
Impression & Plan Acute GI bleeding, Anemia, Weakness, Acute confusion, Hypomagnesemia ED Provider Note NAME: SABINA CLARK AGE: 80 SEX: M : 1940 ARRIVES VIA: Walk-In INFORMANT: [Patient][] ED PROVIDER(S): [Tony Perkins MD] CHIEF COMPLAINT: No urination, nausea HISTORY OF PRESENT ILLNESS: The patient is a 80-year-old male who presents to the ER with nausea, weakness and a lack of urine output. The patient has been feeling poorly for around 5 days. He started with nausea over the weekend. His symptoms began 2 days after his first Covid vaccine. The patient is not short of breath. He is not coughing. There has been no fever. He did have a black loose bowel movement a few days ago but has not moved his bowels really since. He does take iron. He was in the ED 2 days ago and work-up showed a mild anemia. Kidney function seemed normal. There was no bowel obstruction by x-ray. He was discharged with Zofran. He states he feels no better. The nausea has persisted, he has no appetite and he states he now is not making urine. Last urination was last evening. The patient spoke with his doctors office and referred to the ED. The patient denies real abdominal pain. He states it is more nausea than anything. His feels the patient seems pale. She has noticed her has had difficulty with word finding over the last couple of days. No one-sided weakness. His weakness is generalized. The patient states that his words are just getting jumbled when he goes to speak. REVIEW OF SYSTEMS: See HPI for pertinent positives and negatives. A total of ten systems were reviewed and were otherwise negative. PMHx/PSHx: See Below SOCIAL HISTORY: See Below. PHYSICAL EXAM: GENERAL: Patient is in no acute distress. HEENT: No acute trauma, normocephalic atraumatic, mucous membranes dry, no nasal congestion, no scleral icterus. NECK: No stridor, no adenopathy, no meningismus, trachea is midline. LUNGS: Clear to auscultation bilaterally, no wheeze, no rhonchi, breath sounds equal. HEART: Without murmurs gallops or rubs, regular rate and rhythm. ABDOMEN: Soft, nontender, bowel sounds positive, no hernias, no peritonitis. EXTREMITIES: No cyanosis or edema, full range of motion of all the joints without pain or difficulty, no signs for acute trauma. NEUROLOGIC: Oriented x 3, no acute motor or sensory deficits, no focal weakness. No cerebellar deficits or extremity drift. He does have some difficulty with finding his words and almost seems to stumble over words at times when giving his story. SKIN: No rash, no jaundice, no diaphoresis. Pale. Rectal: Black stool, heme positive. Groin: Uncircumcised, no scrotal erythema or warmth. DIFFERENTIAL DIAGNOSIS: Infection, dehydration, metabolic abnormality, hypo/hyperglycemia, GI bleeding, urinary obstruction, UTI, electrolyte disturbance, anemia, hypoxia, cardiac sources, intracerebral event, toxicologic issues, stroke, TIA, as well as other pathologies. EMERGENCY DEPARTMENT COURSE/PROCEDURES: ECG: Indication was weakness. The ECG shows a normal sinus rhythm with some inverted T waves in the anterior leads. There is some T wave flattening in the lateral leads. The rate is 76. QTc is 506. There is no ST elevation, no PVCs. Compared to an ECG from 03 December 2020, the T wave and ST changes are new. Continuous Cardiac Monitoring: An order was placed for continuous cardiac monitoring. The monitor shows a rate of 76 with normal sinus rhythm. Critical Care Note: I have personally spent 51 minutes of critical care time in the direct management of this patient. This includes bedside care, interpretation of diagnostic studies, and testing, discussion with consultants, patient, and family members, and other required patient management activities. This 51 minutes is in excess of all separately billable procedures. MEDICAL DECISION MAKING: There is no leukocytosis. The patient is anemic with a hemoglobin of 8.9. There is a normal platelet count. INR shows a slight elevation at 1.3. Magnesium was low at 1.5. No kidney failure. There were some subtle liver enzyme elevations. ECG shows a sinus rhythm, there are some ST and T wave changes but no acute ST elevation. Cardiac enzyme testing x1 is not consistent with acute cardiac injury. No evidence for pancreatitis by our testing. Covid testing returned negative. Chest film did not show pneumonia or free air. Abdominal and pelvis CT shows evidence for varices, there was some mild splenomegaly. There was no acute surgical process by CT scan, no bowel obstruction, no free air. Brain CT shows no acute bleed or mass-effect. On exam, the patient appeared pale, his stool was black and heme positive. The patient received IV saline, 500 cc. He was given a Protonix bolus IV and then placed on a Protonix drip. He received IV Zofran for nausea. He was given IV magnesium for the lower magnesium value. A blood transfusion was not administered as his hemoglobin was still relatively adequate. The patient is in need of a hospital stay. He has an acute GI bleed, likely an upper GI bleed. He is weak, anemic, pale and nauseated. He is unable to take in liquids and has had a decreased urine output. I spoke to the patient, I talked to case management. The on-call hospitalist has been consulted. Past Med/Surg History Medical History Anemia chronic, baseline hgb 10-11 range per chart review Anxiety Bilateral primary osteoarthritis of knee Carpal tunnel syndrome Cervical spondylosis without myelopathy Chronic gastric ulcer remote hx per records, pt states unaware Depression Diabetes mellitus, type 2 NIDDM Esophageal varices Grade 1 small varices in the lower third of the esophagus per 09/30/20 EGD, undergoes routine surveillance EGDs Fatty liver GERD (gastroesophageal reflux disease) controlled Hiatal hernia History of gastric polyp History of prostate cancer s/p prostatectomy (1998), no chemo/no radiation Hypercholesterolemia Hypertension 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, alcoholic hx small esophageal varices (09/2020) under surveillance, no banding indicated on most recent EGD, follows with [facility], stable Lumbar stenosis Pancreatitis 2017 Restless legs syndrome Thrombocytopenia hx cirrhosis, chronic mild thrombocytopenia Surgical History History of biopsy pancreatic mass biopsy on 07/01/2020 - benign History of colonoscopy (06/2018) History of cystoscopy d/t incontinence History of esophagogastroduodenoscopy (EGD) (11/2019) 11/30/19: MAC sedation at [facility] History of laminectomy X3 History of prostatectomy History of right inguinal hernia repair History of tooth extraction Hx of cervical spine surgery (12/2019) C3-C6 laminectomy, C3-T1 PCF Hx of inguinal hernia surgery (09/14/19) Open Right Inguinal Hernia Repair with Mesh: 09/14/19: LMA#[id number] at [facility] S/P total knee arthroplasty 11/12/20 Dr. Khoa Fink- Right TKA Family History Sister Family history of diabetes mellitus Breast cancer Mother Colorectal cancer Brother Prostate cancer Colorectal cancer Father Myocardial infarction Son Thyroid disease Mother Family history of diabetes mellitus Sister Family history of diabetes mellitus Sister Family history of diabetes mellitus Other No family history of adverse response to anesthesia Denies family history of Ovarian cancer Social History Smoking Status: Never smoker Age Quit Using Tobacco: 42; Second Hand Exposure: Yes (FAMILY SMOKED); Hx Alcohol Use: Yes Alcohol type: beer Hx Substance Use: No Preferred Language: Irish Communication Ability: Effective Visual Impairment: No Limitations Hearing Ability: Normal [employer]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: No Beliefs That Will Affect Care: None marital status: Current Living Situation: Spouse current occupational status: retired Feels Safe at Home: Yes Childhood Exposure to Second-Hand Smoke: No Diet Comment: regular caffeine: No during the past year weight has: decreased > 10 lbs Dental Care, Regularly: No Physical Activity Frequency: Daily Physical Activity Frequency Comment: limited by physical condition Seatbelt Use: always Sunscreen Use: No Assistive Devices: Walker Allergies Allergies Allergy/AdvReac Type Severity Reaction Status Date / Time No Known Allergies Allergy Verified 12/05/20 18:20 Home Meds Home Medications Medication Instructions Recorded Confirmed atorvastatin 80 mg PO HS 06/13/19 12/05/20 venlafaxine 225 mg PO QAM 11/21/19 12/05/20 gabapentin 100 mg capsule 0 mg PO HS cap 01/31/20 12/05/20 pantoprazole 40 mg tablet,delayed 40 mg PO QAM tab 01/31/20 12/05/20 release alogliptin 25 mg tablet 25 mg PO QAM 08/02/20 12/05/20 acetaminophen 1,000 mg PO BID PRN 12/05/20 12/05/20 methocarbamol 500 mg PO TID PRN 12/05/20 12/05/20 ondansetron 4 mg PO Q6H PRN 12/05/20 12/05/20 Previous Rx's Medication Instructions Recorded metformin 1,000 mg tablet 1,000 mg PO BID #180 tab 05/30/20 Results & Data (ED) Vital Signs Vital Signs - 24 hr 12/05/20 15:25 12/05/20 16:19 12/05/20 16:23 Temperature 36.3 C L Temperature Source Temporal Artery Scan Pulse Rate 85 75 76 Pulse Rate from SpO2 Sensor 78 Pulse Rhythm Regular Respiratory Rate 16 22 Respiratory Effort / Characteristics Non-Labored Respiratory Depth Normal Blood Pressure 149/86 H 149/73 H Blood Pressure Mean 107 98 Pulse Oximetry 100 100 100 Oxygen Delivery Method Room Air Room Air Sepsis Recent Fever Within 48 Hours No Sepsis New/Unexplained Change in Mental Status No Sepsis Action Taken by Nursing No Action Required 12/05/20 16:24 12/05/20 16:30 12/05/20 16:31 Temperature Temperature Source Pulse Rate 77 81 79 Pulse Rate from SpO2 Sensor 77 81 80 Pulse Rhythm Respiratory Rate 19 21 24 Respiratory Effort / Characteristics Respiratory Depth Blood Pressure 145/78 H Blood Pressure Mean 100 Pulse Oximetry 100 100 100 Oxygen Delivery Method Sepsis Recent Fever Within 48 Hours Sepsis New/Unexplained Change in Mental Status Sepsis Action Taken by Nursing 12/05/20 16:40 12/05/20 17:05 12/05/20 17:10 Temperature Temperature Source Pulse Rate 82 81 78 Pulse Rate from SpO2 Sensor 81 81 77 Pulse Rhythm Respiratory Rate 27 H 19 19 Respiratory Effort / Characteristics Respiratory Depth Blood Pressure Blood Pressure Mean Pulse Oximetry 100 97 100 Oxygen Delivery Method Sepsis Recent Fever Within 48 Hours Sepsis New/Unexplained Change in Mental Status Sepsis Action Taken by Nursing 12/05/20 17:20 12/05/20 17:30 12/05/20 17:31 Temperature Temperature Source Pulse Rate 79 79 82 Pulse Rate from SpO2 Sensor 79 Pulse Rhythm Respiratory Rate 23 23 23 Respiratory Effort / Characteristics Respiratory Depth Blood Pressure 151/84 H Blood Pressure Mean 106 Pulse Oximetry 100 Oxygen Delivery Method Sepsis Recent Fever Within 48 Hours Sepsis New/Unexplained Change in Mental Status Sepsis Action Taken by Nursing 12/05/20 17:40 12/05/20 17:50 12/05/20 18:00 Temperature Temperature Source Pulse Rate 86 84 83 Pulse Rate from SpO2 Sensor 83 83 83 Pulse Rhythm Respiratory Rate 25 H 30 H 25 H Respiratory Effort / Characteristics Respiratory Depth Blood Pressure 147/76 H Blood Pressure Mean 99 Pulse Oximetry 99 100 100 Oxygen Delivery Method Sepsis Recent Fever Within 48 Hours Sepsis New/Unexplained Change in Mental Status Sepsis Action Taken by Nursing 12/05/20 18:01 12/05/20 18:10 12/05/20 18:20 Temperature Temperature Source Pulse Rate 86 82 82 Pulse Rate from SpO2 Sensor 86 82 81 Pulse Rhythm Respiratory Rate 21 24 21 Respiratory Effort / Characteristics Respiratory Depth Blood Pressure Blood Pressure Mean Pulse Oximetry 99 100 100 Oxygen Delivery Method Sepsis Recent Fever Within 48 Hours Sepsis New/Unexplained Change in Mental Status Sepsis Action Taken by Nursing 12/05/20 18:30 12/05/20 18:31 Temperature Temperature Source Pulse Rate 82 79 Pulse Rate from SpO2 Sensor 81 79 Pulse Rhythm Respiratory Rate 27 H 21 Respiratory Effort / Characteristics Respiratory Depth Blood Pressure 154/78 H Blood Pressure Mean 103 Pulse Oximetry 100 100 Oxygen Delivery Method Room Air Sepsis Recent Fever Within 48 Hours Sepsis New/Unexplained Change in Mental Status Sepsis Action Taken by Correction Medications Current Medication List: was personally reviewed by me Laboratory Data Attestation: I reviewed the patient's lab results. Result diagrams: 12/05/20 16:03 12/05/20 16:03 Lab Results 12/05/20 12/05/20 12/05/20 Range/Units 16:03 16:03 16:03 WBC 6.04 (4.8-10.8) K/uL RBC 3.15 L (4.7-6.1) M/uL Hgb 8.9 L (14.0-18.0) g/dL Hct 28.0 L (42-52) % MCV 88.9 (80-100) fL MCH 28.3 (25-34) pg MCHC 31.8 L (32-36) g/dL RDW Std Deviation 56.2 H (36.4-46.3) fL RDW Coeff of Elliot 17.7 H (11.5-14.5) % Plt Count 216 (130-400) K/uL MPV 9.2 (7.4-10.4) fL Immature Gran % (Auto) 0.2 % Neut % (Auto) 59.8 % Lymph % (Auto) 30.0 % [place] % (Auto) 9.4 % Eos % (Auto) 0.3 % Baso % (Auto) 0.3 % Neut # (Auto) 3.61 (1.4-6.5) K/uL Lymph # (Auto) 1.81 (1.2-3.4) K/uL [place] # (Auto) 0.57 (0.11-0.59) K/uL Eos # (Auto) 0.02 (0-0.5) K/uL Baso # (Auto) 0.02 (0-0.2) K/uL Immature Gran # (Auto) 0.01 (0.00-0.02) K/uL PT 12.7 H (9.0-12.0) Seconds INR 1.3 H (0.9-1.1) APTT (21.0-31.0) Seconds PTT Ratio Sodium (136-145) mmol/L Potassium (3.5-5.1) mmol/L Chloride (98-107) mmol/L Carbon Dioxide (21-32) mmol/L Anion Gap (3-11) BUN (7-18) mg/dl Creatinine (0.6-1.4) mg/dl Est Cr Clr Drug Dosing Est GFR ( Amer) Est GFR (Non-Af Amer) BUN/Creatinine Ratio (10-20) Glucose (70-99) mg/dl Calcium (8.5-10.1) mg/dl Magnesium (1.8-2.4) mg/dl Total Bilirubin (0.2-1) mg/dl AST (15-37) U/L ALT (12-78) U/L Alkaline Phosphatase (45-117) U/L Troponin I (0-0.045) ng/ml Total Protein (6.4-8.2) gm/dl Albumin (3.4-5.0) gm/dl Globulin (2.5-4.0) gm/dl Albumin/Globulin Ratio (0.9-2) Lipase (73-393) U/L COVID-19 Eval Order SARS-CoV-2, RNA, NAAT (NEGATIVE) Blood Type O Positive Antibody Screen NEGATIVE Crossmatch See Detail 12/05/20 12/05/20 12/05/20 Range/Units 16:03 16:03 18:05 WBC (4.8-10.8) K/uL RBC (4.7-6.1) M/uL Hgb (14.0-18.0) g/dL Hct (42-52) % MCV (80-100) fL MCH (25-34) pg MCHC (32-36) g/dL RDW Std Deviation (36.4-46.3) fL RDW Coeff of Elliot (11.5-14.5) % Plt Count (130-400) K/uL MPV (7.4-10.4) fL Immature Gran % (Auto) % Neut % (Auto) % Lymph % (Auto) % [place] % (Auto) % Eos % (Auto) % Baso % (Auto) % Neut # (Auto) (1.4-6.5) K/uL Lymph # (Auto) (1.2-3.4) K/uL [place] # (Auto) (0.11-0.59) K/uL Eos # (Auto) (0-0.5) K/uL Baso # (Auto) (0-0.2) K/uL Immature Gran # (Auto) (0.00-0.02) K/uL PT (9.0-12.0) Seconds INR (0.9-1.1) APTT 24.2 (21.0-31.0) Seconds PTT Ratio 0.9 Sodium 142 (136-145) mmol/L Potassium 3.1 L D (3.5-5.1) mmol/L Chloride 109 H (98-107) mmol/L Carbon Dioxide 23 (21-32) mmol/L Anion Gap 10.0 (3-11) BUN 24 H (7-18) mg/dl Creatinine 0.99 (0.6-1.4) mg/dl Est Cr Clr Drug Dosing Not Reportable Est GFR ( Amer) 84.2 Est GFR (Non-Af Amer) 72.6 BUN/Creatinine Ratio 24.1 H (10-20) Glucose 208 H (70-99) mg/dl Calcium 9.3 (8.5-10.1) mg/dl Magnesium 1.5 L (1.8-2.4) mg/dl Total Bilirubin 1.1 H (0.2-1) mg/dl AST 60 H (15-37) U/L ALT 41 (12-78) U/L Alkaline Phosphatase 214 H (45-117) U/L Troponin I < 0.015 (0-0.045) ng/ml Total Protein 7.1 (6.4-8.2) gm/dl Albumin 3.0 L (3.4-5.0) gm/dl Globulin 4.1 H (2.5-4.0) gm/dl Albumin/Globulin Ratio 0.7 L (0.9-2) Lipase 175 (73-393) U/L COVID-19 Eval [facility] SARS-CoV-2, RNA, NAAT (NEGATIVE) Blood Type Antibody Screen Crossmatch 12/05/20 Range/Units 18:05 WBC (4.8-10.8) K/uL RBC (4.7-6.1) M/uL Hgb (14.0-18.0) g/dL Hct (42-52) % MCV (80-100) fL MCH (25-34) pg MCHC (32-36) g/dL RDW Std Deviation (36.4-46.3) fL RDW Coeff of Elliot (11.5-14.5) % Plt Count (130-400) K/uL MPV (7.4-10.4) fL Immature Gran % (Auto) % Neut % (Auto) % Lymph % (Auto) % [place] % (Auto) % Eos % (Auto) % Baso % (Auto) % Neut # (Auto) (1.4-6.5) K/uL Lymph # (Auto) (1.2-3.4) K/uL [place] # (Auto) (0.11-0.59) K/uL Eos # (Auto) (0-0.5) K/uL Baso # (Auto) (0-0.2) K/uL Immature Gran # (Auto) (0.00-0.02) K/uL PT (9.0-12.0) Seconds INR (0.9-1.1) APTT (21.0-31.0) Seconds PTT Ratio Sodium (136-145) mmol/L Potassium (3.5-5.1) mmol/L Chloride (98-107) mmol/L Carbon Dioxide (21-32) mmol/L Anion Gap (3-11) BUN (7-18) mg/dl Creatinine (0.6-1.4) mg/dl Est Cr Clr Drug Dosing Est GFR ( Amer) Est GFR (Non-Af Amer) BUN/Creatinine Ratio (10-20) Glucose (70-99) mg/dl Calcium (8.5-10.1) mg/dl Magnesium (1.8-2.4) mg/dl Total Bilirubin (0.2-1) mg/dl AST (15-37) U/L ALT (12-78) U/L Alkaline Phosphatase (45-117) U/L Troponin I (0-0.045) ng/ml Total Protein (6.4-8.2) gm/dl Albumin (3.4-5.0) gm/dl Globulin (2.5-4.0) gm/dl Albumin/Globulin Ratio (0.9-2) Lipase (73-393) U/L COVID-19 Eval Order SARS-CoV-2, RNA, NAAT NEGATIVE (NEGATIVE) Blood Type Antibody Screen Crossmatch Administered Medications Pantoprazole Sodium 40 mg/ (Dextrose) 100 mls @ 20 mls/hr IV Q5H AMNA Stop: 01/04/21 16:11 Last Admin: 12/05/20 16:52 Dose: 8 mg/hr, 20 mls/hr Documented by: [id number] Discontinued Medications Sodium Chloride (Nss) 500 mls @ 999 mls/hr IV .Q31M STA Stop: 12/05/20 16:26 Last Infusion: 12/05/20 16:56 Dose: 0 mls/hr Documented by: [id number] Admin: 12/05/20 16:24 Dose: 999 mls/hr Documented by: [id number] Pantoprazole Sodium (Protonix Bolus/Drip) 0 mls @ 1 mls/hr IV ONE STA Stop: 12/05/20 15:57 Last Infusion: 12/05/20 17:36 Dose: 0 mls/hr Documented by: [id number] Admin: 12/05/20 16:51 Dose: 1 mls/hr Documented by: [id number] Pantoprazole Sodium 80 mg/ (Dextrose) 120 mls @ 400 mls/hr IV NOW ONE Stop: 12/05/20 16:13 Last Infusion: 12/05/20 16:59 Dose: 0 mls/hr Documented by: [id number] Admin: 12/05/20 16:51 Dose: 400 mls/hr Documented by: [id number] Magnesium Sulfate/Dextrose (Magnesium Sulfate / D5w) 1 gm in 100 mls @ 100 mls/hr IV NOW STA Stop: 12/05/20 18:05 Last Admin: 12/05/20 19:03 Dose: 100 mls/hr Documented by: [id number] Ondansetron HCl (Ondansetron Inj 2 Mg/Ml 2 Ml Vial) 4 mg IV NOW STA Stop: 12/05/20 15:57 Last Admin: 12/05/20 16:56 Dose: 4 mg Documented by: [id number] Imaging Data Radiologist's Impression: CT head/brain wo con CLINICAL HISTORY: 80 years-old Male with confusion. Acutely altered mental status with confusion TECHNIQUE: Multiple axial CT images of the head were obtained without contrast. A dose lowering technique was utilized adhering to the principles of ALARA. CT DOSE: 1513.96 mGy.cm COMPARISON: Head CT 12/11/2019, brain MRI 12/11/2019. FINDINGS: No acute intracranial hemorrhage, midline shift, intracranial mass, hydrocephalus, territorial ischemia or abnormal extra-axial collection. Age- related involutional changes with chronic microvascular ischemic disease. Cerebral vascular calcifications. Chronic subcentimeter right thalamus lacunar infarct. The calvarium is intact. The paranasal sinuses, mastoid air cells, and middle ear cavities are clear. IMPRESSION: No acute intracranial abnormality. CT SCAN OF THE ABDOMEN AND PELVIS WITHOUT IV CONTRAST CLINICAL HISTORY: Dysuria. COMPARISON STUDY: Abdominal CT dated 08/08/2019. Abdominal MRI dated 06/07/2020. TECHNIQUE: CT scan of the abdomen and pelvis is performed from the lung bases to the proximal femora. Images are reviewed in the axial, sagittal, and coronal planes. IV contrast was not administered for this examination. A dose lowering technique was utilized adhering to the principles of ALARA. The examination is modestly degraded by motion artifact. FINDINGS: Lung bases: The heart is enlarged and without pericardial effusion. There are coronary artery calcifications. A small hiatal hernia is noted. There are e sophageal varices. The lung bases are clear noting bibasilar scarring/atelectasis. Gynecomastia is noted. Liver: The unenhanced liver is cirrhotic in morphology and heterogeneous in attenuation. There is nodularity of the hepatic surface contour. There is no intrahepatic biliary ductal dilatation. Gallbladder: Unremarkable. Spleen: The spleen is enlarged measuring 16.6 cm in length. Pancreas: The unenhanced pancreas is moderately atrophic. There are cystic lesions seen throughout the distal pancreatic body and tail which measure up to 2.2 cm. These appear increased in size from prior examinations. Adrenal glands: Unremarkable. Kidneys: The unenhanced kidneys demonstrate cortical atrophy and are without hydronephrosis. There are no renal calculi identified. There is no evidence of contour deforming renal mass lesion. Abdominal vasculature: There is advanced atherosclerotic calcification and mild ectasia of the abdominal aorta. Bowel: Metallic foreign bodies versus surgical clips are noted in the stomach. There is no bowel obstruction. There are scattered colonic diverticula without CT evidence of acute diverticulitis. The appendix is well-visualized and normal. Peritoneum: There is trace perihepatic ascites. No intraperitoneal free air is identified. Lymphadenopathy: None. Pelvic viscera: The prostate gland is surgically absent. The bladder is partially distended. The bladder wall appears thickened and trabeculated suggesting chronic outlet obstruction. Skeletal structures: The skeletal structures are osteopenic. There is moderate to advanced lumbosacral spondylosis. Postlaminectomy change is noted in the lumbar spine. No lytic or blastic lesions are seen. IMPRESSION: 1. The liver is cirrhotic in morphology and heterogeneous in attenuation. 2. Splenomegaly, esophageal varices, and trace perihepatic ascites indicate portal hypertension. 3. Surgical clips versus metallic foreign bodies are present within the stomach. Clinical correlation will be required. 4. 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 These have modestly increased in size dating back to 2019. 5. Status post prostatectomy. The bladder is only partially distended. 6. Additional findings as above. SINGLE VIEW CHEST CLINICAL HISTORY: Generalized abdominal pain. FINDINGS: 2 AP, portable, upright chest radiographs are compared to study dated 12/03/2020. The cardiomediastinal heart is mildly enlarged noting atherosclerotic calcification of the thoracic aorta. The pulmonary vasculature is noncongested. Chronic interstitial thickening is similar to previous. No airspace consolidation, large pleural effusion, or pneumothorax is seen. The skeletal structures are osteopenic. The bony thorax is grossly intact. Degenerative change is seen throughout the imaged spine. Fusion hardware is noted the cervicothoracic junction. Clips project over the left upper quadrant. IMPRESSION: Cardiomegaly with no active disease in the chest. Discharge Plan Visit Data Chief Complaint: Unable to Void Stated Complaint: NAUTIOUS, DIZZINESS, NOT URINATING ED Provider: Tony Perkins Discharge Problem: Acute GI bleeding, Anemia, Weakness, Acute confusion, Hypomagnesemia Patient Disposition: Admitted As Inpatient Condition: Fair Forms Stand Alone Forms: [facility] [place] Prescriptions Prescriptions: No Action gabapentin 100 mg capsule 0 mg PO HS RF: 0 pantoprazole 40 mg tablet,delayed release (DR/EC) 40 mg PO QAM RF: 0 metformin 1,000 mg tablet 1,000 mg PO BID Qty: 180 RF: 4 alogliptin 25 mg tablet 25 mg PO QAM RF: 0 atorvastatin 80 mg tablet 80 mg PO HS RF: 0 venlafaxine 75 mg capsule,extended release 24hr 225 mg PO QAM RF: 0 acetaminophen 500 mg tablet 1,000 mg PO BID PRN (Reason: Pain) RF: 0 ondansetron 4 mg tablet,disintegrating 4 mg PO Q6H PRN (Reason: Nausea And Vomiting) RF: 0 methocarbamol 500 mg tablet 500 mg PO TID PRN (Reason: Muscle Spasm) RF: 0 Referrals Referrals: Elliott Ng CRNP [Primary Care Provider] -
[2020-12-05 16:18] LABS: Basophils # (auto) 0.02 K/uL (0-0.2); Basophils % (auto) 0.3 %; Eosinophils # (auto) 0.02 K/uL (0-0.5); Eosinophils % (auto) 0.3 %; Hemoglobin 8.9 g/dL (14.0-18.0); Immature Granulocytes # (auto) 0.01 K/uL (0.00-0.02); Immature Granulocytes % (auto) 0.2 %; Lymphocytes # (auto) 1.81 K/uL (1.2-3.4); Mean Corpuscular Hemoglobin 28.3 pg (25-34); Mean Corpuscular Hgb Conc 31.8 g/dL (32-36); Mean Corpuscular Volume 88.9 fL (80-100); Mean Platelet Volume 9.2 fL (7.4-10.4); Monocytes # (auto) 0.57 K/uL (0.11-0.59); Monocytes % (auto) 9.4 %; Neutrophils # (auto) 3.61 K/uL (1.4-6.5); Neutrophils % (auto) 59.8 %; Platelet Count 216 K/uL (130-400); RDW Coefficient of Variation 17.7 % (11.5-14.5); RDW Standard Deviation 56.2 fL (36.4-46.3); Red Blood Count 3.15 M/uL (4.7-6.1); White Blood Count 6.04 K/uL (4.8-10.8)
[2020-12-05 16:33] LABS: INR 1.3 (0.9-1.1); Prothrombin Time 12.7 Seconds (9.0-12.0)
[2020-12-05 16:43] LABS: Alanine Aminotransferase 41 U/L (12-78); Albumin Globulin Ratio 0.7 (0.9-2); Alkaline Phosphatase 214 U/L (45-117); Aspartate Aminotransferase 60 U/L (15-37); BUN Creatinine Ratio 24.1 (10-20); Bilirubin,Total 1.1 mg/dl (0.2-1); Blood Urea Nitrogen 24 mg/dl (7-18); Calcium 9.3 mg/dl (8.5-10.1); Carbon Dioxide 23 mmol/L (21-32); Chloride 109 mmol/L (98-107); Est GFR (African American) 84.2; Est GFR (Non-African American) 72.6; Globulin 4.1 gm/dl (2.5-4.0); Glucose 208 mg/dl (70-99); Lipase 175 U/L (73-393); Magnesium 1.5 mg/dl (1.8-2.4); Potassium 3.1 mmol/L (3.5-5.1); Sodium 142 mmol/L (136-145); Total Protein 7.1 gm/dl (6.4-8.2); Troponin I < 0.015 ng/ml (0-0.045)
[2020-12-05] MEDS: PANTOprazole 40 MG in DEXTROSE 5% 100 ML IV SCH ×2 (16:52→22:38)
[2020-12-05 17:04] LABS: Partial Thromboplastin Ratio 0.9; Partial Thromboplastin Time 24.2 Seconds (21.0-31.0)
[2020-12-05] MEDS ORDERED: MAGNESIUM SULFATE / D5W 1 GM/100 ML BAG IV STA (17:06)
--- NOTE | 2020-12-05 17:06 | CT Scan Report ---
CT head/brain wo con CLINICAL HISTORY: 80 years-old Male with confusion. Acutely altered mental status with confusion TECHNIQUE: Multiple axial CT images of the head were obtained without contrast. A dose lowering tech nique was utilized adhering to the principles of ALARA. CT DOSE: 1513.96 mGy.cm COMPARISON: Head CT 12/11/2019, brain MRI 12/11/2019. FINDINGS: No acute intracranial hemorrhage, midline shift, intracranial mass, hydrocephalus, territorial ischem ia or abnormal extra-axial collection. Age-related involutional changes with chronic microvascular is chemic disease. Cerebral vascular calcifications. Chronic subcentimeter right thalamus lacunar infarc t. The calvarium is intact. The paranasal sinuses, mastoid air cells, and middle ear cavities are clear . IMPRESSION: No acute intracranial abnormality. ACT 112: Negative or not required by law. The above report was generated using voice recognition software. It may contain grammatical, syntax o r spelling errors. Electronically signed by: Daquan Leone M.D. 12/05/2020 5:05 PM
--- NOTE | 2020-12-05 17:13 | CT Scan Report ---
CT SCAN OF THE ABDOMEN AND PELVIS WITHOUT IV CONTRAST CLINICAL HISTORY: Dysuria. COMPARISON STUDY: Abdominal CT dated 08/08/2019. Abdominal MRI dated 06/07/2020. TECHNIQUE: CT scan of the abdomen and pelvis is performed from the lung bases to the proximal femora. Images are reviewed in the axial, sagittal, and coronal planes. IV contrast was not administered for this examination. A dose lowering technique was utilized adhering to the principles of ALARA. The ex amination is modestly degraded by motion artifact. FINDINGS: Lung bases: The heart is enlarged and without pericardial effusion. There are coronary artery calcifi cations. A small hiatal hernia is noted. There are esophageal varices. The lung bases are clear notin g bibasilar scarring/atelectasis. Gynecomastia is noted. Liver: The unenhanced liver is cirrhotic in morphology and heterogeneous in attenuation. There is nod ularity of the hepatic surface contour. There is no intrahepatic biliary ductal dilatation. Gallbladder: Unremarkable. Spleen: The spleen is enlarged measuring 16.6 cm in length. Pancreas: The unenhanced pancreas is moderately atrophic. There are cystic lesions seen throughout th e distal pancreatic body and tail which measure up to 2.2 cm. These appear increased in size from salbador or examinations. Adrenal glands: Unremarkable. Kidneys: The unenhanced kidneys demonstrate cortical atrophy and are without hydronephrosis. There ar e no renal calculi identified. There is no evidence of contour deforming renal mass lesion. Abdominal vasculature: There is advanced atherosclerotic calcification and mild ectasia of the abdomi nal aorta. Bowel: Metallic foreign bodies versus surgical clips are noted in the stomach. There is no bowel obst ruction. There are scattered colonic diverticula without CT evidence of acute diverticulitis. The cecily endix is well-visualized and normal. Peritoneum: There is trace perihepatic ascites. No intraperitoneal free air is identified. Lymphadenopathy: None. Pelvic viscera: The prostate gland is surgically absent. The bladder is partially distended. The blad sumaya wall appears thickened and trabeculated suggesting chronic outlet obstruction. Skeletal structures: The skeletal structures are osteopenic. There is moderate to advanced lumbosacra l spondylosis. Postlaminectomy change is noted in the lumbar spine. No lytic or blastic lesions are s een. IMPRESSION: 1. The liver is cirrhotic in morphology and heterogeneous in attenuation. 2. Splenomegaly, esophageal varices, and trace perihepatic ascites indicate portal hypertension. 3. Surgical clips versus metallic foreign bodies are present within the stomach. Clinical correlation will be required. 4. Cystic lesions are again seen within the pancreatic tail, likely representing main duct versus katie ebranch IPMNs and/or mucinous cystic neoplasms. These have modestly increased in size dating back to 2019. 5. Status post prostatectomy. The bladder is only partially distended. 6. Additional findings as above. ACT 112: Negative or not required by law. Electronically signed by: Tony Mroocho M.D. 12/05/2020 5:12 PM
--- NOTE | 2020-12-05 17:20 | XRay Report ---
SINGLE VIEW CHEST CLINICAL HISTORY: Generalized abdominal pain. FINDINGS: 2 AP, portable, upright chest radiographs are compared to study dated 12/03/2020. The cardio mediastinal heart is mildly enlarged noting atherosclerotic calcification of the thoracic aorta. The pulmonary vasculature is noncongested. Chronic interstitial thickening is similar to previous. No air space consolidation, large pleural effusion, or pneumothorax is seen. The skeletal structures are ost eopenic. The bony thorax is grossly intact. Degenerative change is seen throughout the imaged spine. Fusion hardware is noted the cervicothoracic junction. Clips project over the left upper quadrant. IMPRESSION: Cardiomegaly with no active disease in the chest. ACT 112: Negative or not required by law. Electronically signed by: Tony Morocho M.D. 12/05/2020 5:18 PM
--- NOTE | 2020-12-05 19:01 | History & Physical Report ---
Date of Service December 05, 2020 Assessment & Plan (1) GI bleed: Patient admitted for likely UGI gastritis vs. acute bleed - [place] of 11 - HGB 8.6-- no indication for acute transfusion, don't feel that patient is acutley loosing blood (BUN 24 at baseline) hemodynamicly stable, and no chest pain - Transfuse if less than 8- Type and cross - Protonix drip to continue until GI evaluation- transition after findings - NPO for tonight (2) Liver cirrhosis, alcoholic: Child ABILON -6 MELD 10 No acute needs - INR 1.3 - Supportive care ETOH--- Alcohol withdraw with gabapentin and ativan- THiamine and Folate QD following banna bag (3) Esophageal varices: Small to moderate per CT scan and Last scope in 2019 - Rocephin 1GM q day- will also cover concern for cellulitis of knee which looks improved - Control BP - Type and cross as above (4) Iron deficiency anemia: Patient normocytic normo chromic at this time - multiple reasons for anemia - was on iron supplementation last year. - send iron panel and evaluate (5) Nausea: Zofran- therapy as above (6) Diabetes mellitus, type 2: Hold oral glycemic - BG q 6h- cover if >200 - hypoglycemia protocol (7) Hypertension: Patient was previously noted to be on propanlol - not on current medication list - look at re-introducing post EGD and bleeding ruled out. (8) Right leg numbness: Gabapentin with withdrawl protocol. History of Present Illness Primary Care Provider: Elliott Ng, IRISH 80 YOM with significant medical history for alcohol abuse, anemia, acholic cirrhosis, portal gastropathy and small esophageal varices, pancreatic pseudocyst, TKR done 2 weeks ago, HTN, DMII, RLS, he drinks 5 beers a day (drank 1-2 cases a day for years until 2019). Patient recently had a right TKR and was doing well, followed up with orthopaedics and concern for some drainage from the wound, was put on ABX for 10 days, but patient did not take secondary to his stomach hurting. The patient comes to the emergency room today, for continued complain to gastric fullness, belching, and pain. He was seen previously this week and negative workup, he was sent home with the addition of Zofran and Simethicone. The patient and his felt this helped a little bit, but did not take away the pain. The pain is generalized to the upper left quadrant. It does not radiate and gets worse with eating or intake. He has noticed that his bowel movements have been black and the consistency has changed to soft and mushy. The also felt that the patient did look more pale than normal today as well. He had a heme positive stool in the emergency room and was started on Protonix drip following bolus, type and crossed. He will be admitted for trending of CBC, continue Protonix drip, GI consult for possible evaluation, and monitoring of stools. Allergies Allergy/AdvReac Type Severity Reaction Status Date / Time No Known Allergies Allergy Verified 12/05/20 18:20 Home Medications Medication Instructions Recorded Confirmed Type atorvastatin 80 mg PO HS 06/13/19 12/05/20 History venlafaxine 225 mg PO QAM 11/21/19 12/05/20 History gabapentin 100 mg capsule 0 mg PO HS cap 01/31/20 12/05/20 History pantoprazole 40 mg tablet,delayed 40 mg PO QAM tab 01/31/20 12/05/20 History release metformin 1,000 mg tablet 1,000 mg PO BID #180 tab 05/30/20 12/05/20 Rx alogliptin 25 mg tablet 25 mg PO QAM 08/02/20 12/05/20 History acetaminophen 1,000 mg PO BID PRN 12/05/20 12/05/20 History methocarbamol 500 mg PO TID PRN 12/05/20 12/05/20 History ondansetron 4 mg PO Q6H PRN 12/05/20 12/05/20 History Past Med/Surg History Medical History Anemia chronic, baseline hgb 10-11 range per chart review Anxiety Bilateral primary osteoarthritis of knee Carpal tunnel syndrome Cervical spondylosis without myelopathy Chronic gastric ulcer remote hx per records, pt states unaware Depression Diabetes mellitus, type 2 NIDDM Esophageal varices Grade 1 small varices in the lower third of the esophagus per 09/30/20 EGD, undergoes routine surveillance EGDs Fatty liver GERD (gastroesophageal reflux disease) controlled Hiatal hernia History of gastric polyp History of prostate cancer s/p prostatectomy (1998), no chemo/no radiation Hypercholesterolemia Hypertension 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, alcoholic hx small esophageal varices (09/2020) under surveillance, no banding indicated on most recent EGD, follows with [facility], stable Lumbar stenosis Pancreatitis 2017 Restless legs syndrome Thrombocytopenia hx cirrhosis, chronic mild thrombocytopenia Surgical History History of biopsy pancreatic mass biopsy on 07/01/2020 - benign History of colonoscopy (06/2018) History of cystoscopy d/t incontinence History of esophagogastroduodenoscopy (EGD) (11/2019) 11/30/19: MAC sedation at [facility] History of laminectomy X3 History of prostatectomy History of right inguinal hernia repair History of tooth extraction Hx of cervical spine surgery (12/2019) C3-C6 laminectomy, C3-T1 PCF Hx of inguinal hernia surgery (09/14/19) Open Right Inguinal Hernia Repair with Mesh: 09/14/19: LMA#5 at [facility] S/P total knee arthroplasty 11/12/20 Dr. Khoa Fink- [facility] Family History Sister Family history of diabetes mellitus Breast cancer Mother Colorectal cancer Brother Prostate cancer Colorectal cancer Father Myocardial infarction Son Thyroid disease Mother Family history of diabetes mellitus Sister Family history of diabetes mellitus Sister Family history of diabetes mellitus Other No family history of adverse response to anesthesia Denies family history of Ovarian cancer Social History Smoking Status: Never smoker Age Quit Using Tobacco: 42; Second Hand Exposure: Yes (FAMILY SMOKED); Do You Dip or Chew Tobacco: No (several years ago); Hx Alcohol Use: Yes Alcohol type: beer Hx Substance Use: No Preferred Language: Romanian Communication Ability: Effective Visual Impairment: No Limitations Hearing Ability: Normal Petrol Tanker Driver Required: No Beliefs That Will Affect Care: None marital status: Current Living Situation: Spouse current occupational status: retired Other Information That Helps Us Care for You: No Feels Safe at Home: Yes Safety Concerns: Feels Safe At This Time Childhood Exposure to Second-Hand Smoke: No Diet Comment: regular caffeine: No during the past year weight has: decreased > 10 lbs Dental Care, Regularly: No Physical Activity Frequency: Daily Physical Activity Frequency Comment: limited by physical condition Seatbelt Use: always Sunscreen Use: No Assistive Devices: Walker Review of Systems Review of Systems: REVIEW OF SYSTEMS: Constitutional: No fever, sweats or chills Eyes: No diplopia, no worsening or blurred vision ENT: normal hearing, no trouble swallowing Respiratory: No cough, sputum, dyspnea at rest or on exertion Cardiovascular: No chest pain, tightness or palpitations Abdomen: (+) pain, nausea, belching, bloating, (-) vomiting, diarrhea or constipation Musculoskeletal: No joint pain, calf pain, swelling Neurologic: No weakness, numbness/tingling, or balance problems Psychiatric: No anxiety or depression Skin: No rash or itch Physical Exam Physical Exam: PHYSICAL EXAM: General: awake, alert, no apparent distress Head: Normocephalic, atraumatic ENT: PERRL, EOMI, no pharyngeal exudate, mucous membranes moist Neuro: AAO x 3, speech clear and appropriate, strength intact bilaterally 5/5, sensation intact and equal all extremities, no pronator drift Chest: equal rise and fall of the chest, no accessory muscle use, no heaves or thrills, Clear to auscultation, on room air, Cardiac: Regular rate and rhythm, telemetry reviewed, skin warm dry, cap refill <3 seconds, peripheral pulses +2 no JVD, 3/5 systolic murmur heard best at base with, no JVD, no edema GI: NABS x 4 quadrants, soft, nontender to palpation, no rebound, guarding or tenderness. no jaundice, no ascites : Spontaneously voiding, no pain, no CVA tenderness, Extremities: Normal inspection, no peripheral edema or erythema, calfs nontender to palpation Psych: Normal mood and affect Skin: no rash or erythema Results & Data Results & Data ([facility]) Vital Signs (Past 12 Hours) Vital Signs Temp Pulse Resp BP Pulse Ox 12/05/20 16:23 76 100 12/05/20 16:19 75 22 149/73 H 100 12/05/20 15:25 36.3 C L 85 16 149/86 H 100 Laboratory Results Abnormal lab results 12/05/20 12/05/20 12/05/20 Range/Units 16:03 16:03 16:03 RBC 3.15 L (4.7-6.1) M/uL Hgb 8.9 L (14.0-18.0) g/dL Hct 28.0 L (42-52) % MCHC 31.8 L (32-36) g/dL RDW Std Deviation 56.2 H (36.4-46.3) fL RDW Coeff of Elliot 17.7 H (11.5-14.5) % PT 12.7 H (9.0-12.0) Seconds INR 1.3 H (0.9-1.1) Potassium (3.5-5.1) mmol/L Chloride (98-107) mmol/L BUN (7-18) mg/dl BUN/Creatinine Ratio (10-20) Glucose (70-99) mg/dl Magnesium (1.8-2.4) mg/dl Total Bilirubin (0.2-1) mg/dl AST (15-37) U/L Alkaline Phosphatase (45-117) U/L Albumin (3.4-5.0) gm/dl Globulin (2.5-4.0) gm/dl Albumin/Globulin Ratio (0.9-2) Crossmatch See Detail 12/05/20 Range/Units 16:03 RBC (4.7-6.1) M/uL Hgb (14.0-18.0) g/dL Hct (42-52) % MCHC (32-36) g/dL RDW Std Deviation (36.4-46.3) fL RDW Coeff of Elliot (11.5-14.5) % PT (9.0-12.0) Seconds INR (0.9-1.1) Potassium 3.1 L D (3.5-5.1) mmol/L Chloride 109 H (98-107) mmol/L BUN 24 H (7-18) mg/dl BUN/Creatinine Ratio 24.1 H (10-20) Glucose 208 H (70-99) mg/dl Magnesium 1.5 L (1.8-2.4) mg/dl Total Bilirubin 1.1 H (0.2-1) mg/dl AST 60 H (15-37) U/L Alkaline Phosphatase 214 H (45-117) U/L Albumin 3.0 L (3.4-5.0) gm/dl Globulin 4.1 H (2.5-4.0) gm/dl Albumin/Globulin Ratio 0.7 L (0.9-2) Crossmatch Diagnostic Findings SINGLE VIEW CHEST CLINICAL HISTORY: Generalized abdominal pain. FINDINGS: 2 AP, portable, upright chest radiographs are compared to study dated 12/03/2020. The cardiomediastinal heart is mildly enlarged noting atherosclerotic calcification of the thoracic aorta. The pulmonary vasculature is noncongested. Chronic interstitial thickening is similar to previous. No airspace consolidation, large pleural effusion, or pneumothorax is seen. The skeletal structures are osteopenic. The bony thorax is grossly intact. Degenerative change is seen throughout the imaged spine. Fusion hardware is noted the cervicothoracic junction. Clips project over the left upper quadrant. IMPRESSION: Cardiomegaly with no active disease in the chest. CT SCAN OF THE ABDOMEN AND PELVIS WITHOUT IV CONTRAST CLINICAL HISTORY: Dysuria. COMPARISON STUDY: Abdominal CT dated 08/08/2019. Abdominal MRI dated 06/07/2020. TECHNIQUE: CT scan of the abdomen and pelvis is performed from the lung bases to the proximal femora. Images are reviewed in the axial, sagittal, and coronal planes. IV contrast was not administered for this examination. A dose lowering technique was utilized adhering to the principles of ALARA. The examination is modestly degraded by motion artifact. FINDINGS: Lung bases: The heart is enlarged and without pericardial effusion. There are coronary artery calcifications. A small hiatal hernia is noted. There are esophageal varices. The lung bases are clear noting bibasilar scarring/atelectasis. Gynecomastia is noted. Liver: The unenhanced liver is cirrhotic in morphology and heterogeneous in attenuation. There is nodularity of the hepatic surface contour. There is no intrahepatic biliary ductal dilatation. Gallbladder: Unremarkable. Spleen: The spleen is enlarged measuring 16.6 cm in length. Pancreas: The unenhanced pancreas is moderately atrophic. There are cystic lesions seen throughout the distal pancreatic body and tail which measure up to 2.2 cm. These appear increased in size from prior examinations. Adrenal glands: Unremarkable. Kidneys: The unenhanced kidneys demonstrate cortical atrophy and are without hydronephrosis. There are no renal calculi identified. There is no evidence of contour deforming renal mass lesion. Abdominal vasculature: There is advanced atherosclerotic calcification and mild ectasia of the abdominal aorta. Bowel: Metallic foreign bodies versus surgical clips are noted in the stomach. There is no bowel obstruction. There are scattered colonic diverticula without CT evidence of acute diverticulitis. The appendix is well-visualized and normal. Peritoneum: There is trace perihepatic ascites. No intraperitoneal free air is identified. Lymphadenopathy: None. Pelvic viscera: The prostate gland is surgically absent. The bladder is partially distended. The bladder wall appears thickened and trabeculated suggesting chronic outlet obstruction. Skeletal structures: The skeletal structures are osteopenic. There is moderate to advanced lumbosacral spondylosis. Postlaminectomy change is noted in the lumbar spine. No lytic or blastic lesions are seen. IMPRESSION: 1. The liver is cirrhotic in morphology and heterogeneous in attenuation. 2. Splenomegaly, esophageal varices, and trace perihepatic ascites indicate portal hypertension. 3. Surgical clips versus metallic foreign bodies are present within the stomach. Clinical correlation will be required. 4. 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 These have modestly increased in size dating back to 2019. 5. Status post prostatectomy. The bladder is only partially distended. 6. Additional findings as above. CT head/brain wo con CLINICAL HISTORY: 80 years-old Male with confusion. Acutely altered mental status with confusion TECHNIQUE: Multiple axial CT images of the head were obtained without contrast. A dose lowering technique was utilized adhering to the principles of ALARA. CT DOSE: 1513.96 mGy.cm COMPARISON: Head CT 12/11/2019, brain MRI 12/11/2019. FINDINGS: No acute intracranial hemorrhage, midline shift, intracranial mass, hydrocephalus, territorial ischemia or abnormal extra-axial collection. Age- related involutional changes with chronic microvascular ischemic disease. Cerebral vascular calcifications. Chronic subcentimeter right thalamus lacunar infarct. The calvarium is intact. The paranasal sinuses, mastoid air cells, and middle ear cavities are clear. Code Status & VTE Plan Code Status Code: FULL CODE VTE: SCD's until ruled out for GI Bleed VTE Prophylaxis Plan VTE Prophylaxis will be ordered: Yes Supervising Physician Co-Signing Physician Notes I supervised IRISH López on this admission. I interviewed and examined the patient independently of him. The plan is as written in his note except for any following changes/exceptions: None Very pleasant 80yo M w/ hx of alcoholic cirrhosis and varices who presents with stomach discomfort and belching. His notes that he has had several episodes of dark stool over the last few days. He has known esophageal varices from a prior EGD in 09/2020. However, his overall stability points away from active variceal bleed. Will continue PPI gtt, monitor hemoglobin, and consult GI. Monitor for alcohol withdrawl as the patient still drinks about 35 drinks/wk. PG Care Time/CCT Total # of Minutes Spent Total Time Spent with Patient: Total time spent is greater than 50% in coordination of care (as documented) at patient's floor/unit and/or counseling patient: Coding Level of Care Code 78675 Initial Inpt Care Lvl 3 Diagnoses GI bleed K29.71 GI bleed type/associated pathology: gastritis Gastritis type: unspecified gastritis Liver cirrhosis, alcoholic K70.30 Ascites presence: without ascites Esophageal varices I85.00 Esophageal varices bleeding: without bleeding Esophageal varices type: unspecified type Iron deficiency anemia D50.9 Nausea R11.0 Diabetes mellitus, type 2 E11.9 Chronic kidney disease stage 3 subtype: stage 3a (GFR 45-59) Diabetes mellitus roasterman insulin use: without penitentiary use Hypertension I10 Hypertension type: essential hypertension Right leg numbness R20.0 (1) GI bleed GI bleed type/associated pathology: gastritis Gastritis type: unspecified gastritis Qualified Code(s): K29.71 - Gastritis, unspecified, with bleeding (2) Diabetes mellitus, type 2 Chronic kidney disease stage 3 subtype: stage 3a (GFR 45-59) Diabetes mellitus roasterman insulin use: without roasterman use (3) Esophageal varices Esophageal varices bleeding: without bleeding Esophageal varices type: unspecified type Qualified Code(s): I85.00 - Esophageal varices without bleeding (4) Liver cirrhosis, alcoholic Ascites presence: without ascites Qualified Code(s): K70.30 - Alcoholic cirrhosis of liver without ascites (5) Hypertension Hypertension type: essential hypertension Qualified Code(s): I10 - Essential (primary) hypertension
[2020-12-05] MEDS ORDERED: GABAPENTIN 800MG ALCOHOL WITHDRAWAL LOAD PO STA (21:02)
[2020-12-05] MEDS ORDERED: LORazepam 1 MG/2 ML VIAL IV PRN (21:02)
[2020-12-05] MEDS ORDERED: GLUCOSE 40% GEL 15 GM TUBE PO PRN (21:02)
[2020-12-05] MEDS ORDERED: METHOCARBAMOL 500 MG TABLET PO PRN (21:02)
[2020-12-05] MEDS ORDERED: DEXTROSE 50% 50 ML SYRINGE IV PRN (21:02)
[2020-12-05] MEDS ORDERED: GLUCAGON FOR INJ 1 MG VIAL SQ PRN (21:02)
[2020-12-05] MEDS ORDERED: MULTI-VITAMIN INFUSION 10 ML, THIAMINE HCL 100 MG, FOLIC ACID 1 MG in SODIUM CHLORIDE 0... IV ONE (21:02)
[2020-12-05] MEDS ORDERED: POTASSIUM CHLORIDE 20 MEQ/15 ML UDC PO STA (21:02)
[2020-12-05] MEDS ORDERED: CARBOHYDRATES FOR HYPOGLYCEMIA PO PRN (21:02)
[2020-12-05] MEDS ORDERED: GABAPENTIN 400 MG CAP PO ONE (21:02)
[2020-12-05] MEDS ORDERED: GLUCOSE 10 TABS/TUBE PO PRN (21:02)
[2020-12-05] MEDS: ATORVASTATIN 40 MG TAB PO SCH (22:37)
[2020-12-05] MEDS: ACETAMINOPHEN 500 MG TAB PO PRN (22:39)
[2020-12-05] MEDS: FOLIC ACID 1 MG in SYRINGE 9.8 ML IV SCH (22:40)
[2020-12-05] MEDS: THIAMINE HCL 100 MG in SYRINGE 9 ML IV SCH (22:41)
[2020-12-06] MEDS: cefTRIAXone SODIUM 1,000 MG in DEXTROSE 5% 50 ML IV SCH ×2 (01:00→21:28)
[2020-12-06] MEDS: MAGNESIUM SULFATE / D5W 1 GM/100 ML BAG IV SCH ×2 (01:37→03:43)
[2020-12-06] MEDS: PANTOprazole 40 MG in DEXTROSE 5% 100 ML IV SCH ×4 (03:48→17:22)
[2020-12-06] MEDS: GABAPENTIN 400 MG CAP PO SCH ×4 (06:02→21:27)
[2020-12-06] MEDS: LACTATED RINGER'S 1,000 ML IV SCH ×2 (06:03→16:23)
[2020-12-06 07:13] LABS: Basophils # (auto) 0.01 K/uL (0-0.2); Basophils % (auto) 0.3 %; Eosinophils # (auto) 0.05 K/uL (0-0.5); Eosinophils % (auto) 1.5 %; Hematocrit (blood only) 23.2 % (42-52); Hemoglobin 7.5 g/dL (14.0-18.0); Lymphocytes # (auto) 1.54 K/uL (1.2-3.4); Mean Corpuscular Hemoglobin 29.2 pg (25-34); Mean Corpuscular Hgb Conc 32.3 g/dL (32-36); Mean Corpuscular Volume 90.3 fL (80-100); Mean Platelet Volume 9.3 fL (7.4-10.4); Monocytes # (auto) 0.32 K/uL (0.11-0.59); Monocytes % (auto) 9.4 %; Neutrophils % (auto) 43.8 %; Platelet Count 126 K/uL (130-400); RDW Coefficient of Variation 17.8 % (11.5-14.5); RDW Standard Deviation 57.5 fL (36.4-46.3); Red Blood Count 2.57 M/uL (4.7-6.1); White Blood Count 3.42 K/uL (4.8-10.8)
[2020-12-06 07:27] LABS: INR 1.2 (0.9-1.1); Prothrombin Time 12.4 Seconds (9.0-12.0)
[2020-12-06 07:41] LABS: Albumin Level 2.6 gm/dl (3.4-5.0); BUN Creatinine Ratio 24.9 (10-20); Calcium 8.1 mg/dl (8.5-10.1); Creatinine Clr Calc Pharmacy 83.5 ml/min; Est GFR (African American) 103.6; Est GFR (Non-African American) 89.3; Magnesium 2.3 mg/dl (1.8-2.4); Potassium 3.4 mmol/L (3.5-5.1)
[2020-12-06 07:45] LABS: Albumin Globulin Ratio 0.8 (0.9-2); Bilirubin Direct 0.5 mg/dl (0-0.2); Ferritin 180.3 ng/ml (8-388); Globulin 3.3 gm/dl (2.5-4.0); Total Protein 5.9 gm/dl (6.4-8.2)
[2020-12-06 07:50] LABS: RBC Morphology Unremarkable
[2020-12-06] MEDS: VENLAFAXINE HCL XR 75 MG CAPXR PO SCH (08:27)
[2020-12-06] MEDS: THIAMINE HCL 100 MG in SYRINGE 9 ML IV SCH (08:28)
[2020-12-06] MEDS: FOLIC ACID 1 MG in SYRINGE 9.8 ML IV SCH (08:28)
[2020-12-06] MEDS ORDERED: POTASSIUM CHLORIDE CRTAB 20 MEQ TABCR PO STA (10:17)
[2020-12-06] MEDS ORDERED: SODIUM CHLORIDE 0.9% 250 ML IV PRN (10:23)
--- NOTE | 2020-12-06 10:35 | Gastrointestinal Consultation ---
Date of Consultation December 06, 2020 Assessment & Plan (1) Anemia due to GI blood loss: Patient is a 80 yo male with anemia, melena, & epigastric pain. He does have a history of grade 1 varices, but appears to be hemodynamically stable at present. -Keep NPO for EGD today -Spoke with Dr. Mojica from hospitalist service--patient will receive PRBCs -Continue to monitor H/H -Continue Pantoprazole 40 mg IV BID -Further recommendations pending results of EGD Thank you for allowing us to participate in the care of this patient. If you should have any further questions or concerns, do not hesitate to contact us at [phone] or [phone]. Supervising Physician Co-Signing Physician Notes Agree with TIMMY Solorzano as above Abd: Soft, NT, ND, +BS Continue current therapy Proceed with EGD now Further recommendations to follow above noted testing. History of Present Illness Reason for Consultation: Upper GI bleed Attending Physician: Annette Mojica MD History of Present Illness Patient is a 80 yo male with a PMH of GERD and alcoholic cirrhosis with esophageal varices and portal gastropathy who presented to the ED for epigastric pain, fullness, belching, and dark stools. He had a TKR 2 weeks ago. Reportedly there was some sort of post-operative complication for which he was prescribed antibiotics. He reports that these pills made his stomach hurt. He noticed that his bowel movements started to be black and were soft/loose. In the ED, he was noted to be anemic with heme positive stool and since yesterday, his H/H has decreased to 7.5/23.2. He does admit to ongoing alcohol use. He has a history of an EGD in September 2020 where he was noted to have grade 1 varices. He has had advanced procedures performed by Dr. Campuzano of [facility] as well. He reports he has not eaten since last night. He is on IV Protonix & notes improvement of his epigastric pain. Denies pertinent family history. Allergies Allergy/AdvReac Type Severity Reaction Status Date / Time No Known Allergies Allergy Verified 12/05/20 18:20 Home Medications Medication Instructions Recorded Confirmed Type atorvastatin 80 mg PO HS 06/13/19 12/05/20 History venlafaxine 225 mg PO QAM 11/21/19 12/05/20 History gabapentin 100 mg capsule 0 mg PO HS cap 01/31/20 12/05/20 History pantoprazole 40 mg tablet,delayed 40 mg PO QAM tab 01/31/20 12/05/20 History release metformin 1,000 mg tablet 1,000 mg PO BID #180 tab 05/30/20 12/05/20 Rx alogliptin 25 mg tablet 25 mg PO QAM 08/02/20 12/05/20 History acetaminophen 1,000 mg PO BID PRN 12/05/20 12/05/20 History methocarbamol 500 mg PO TID PRN 12/05/20 12/05/20 History ondansetron 4 mg PO Q6H PRN 12/05/20 12/05/20 History Patient History Medical History (Updated 12/06/20 @ 11:05 by Annette Mojica MD) Alcohol dependence Anemia chronic, baseline hgb 10-11 range per chart review Anxiety Bilateral primary osteoarthritis of knee Carpal tunnel syndrome Cervical spondylosis without myelopathy Chronic gastric ulcer remote hx per records, pt states unaware Depression Diabetes mellitus, type 2 NIDDM Esophageal varices Grade 1 small varices in the lower third of the esophagus per 09/30/20 EGD, undergoes routine surveillance EGDs Fatty liver GERD (gastroesophageal reflux disease) controlled Hiatal hernia History of gastric polyp History of prostate cancer s/p prostatectomy (1998), no chemo/no radiation Hypercholesterolemia Hypertension 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, alcoholic hx small esophageal varices (09/2020) under surveillance, no banding indicated on most recent EGD, follows with [facility], stable Lumbar stenosis Pancreatitis 2017 Restless legs syndrome Thrombocytopenia hx cirrhosis, chronic mild thrombocytopenia Surgical History History of biopsy pancreatic mass biopsy on 07/01/2020 - benign History of colonoscopy (06/2018) History of cystoscopy d/t incontinence History of esophagogastroduodenoscopy (EGD) (11/2019) 11/30/19: MAC sedation at [facility] History of laminectomy X3 History of prostatectomy History of right inguinal hernia repair History of tooth extraction Hx of cervical spine surgery (12/2019) C3-C6 laminectomy, C3-T1 PCF Hx of inguinal hernia surgery (09/14/19) Open Right Inguinal Hernia Repair with Mesh: 09/14/19: LMA#5 at [facility] S/P total knee arthroplasty 11/12/20 Dr. Khoa Fink- [facility] Family History Sister Family history of diabetes mellitus Breast cancer Mother Colorectal cancer Brother Prostate cancer Colorectal cancer Father Myocardial infarction Son Thyroid disease Mother Family history of diabetes mellitus Sister Family history of diabetes mellitus Sister Family history of diabetes mellitus Other No family history of adverse response to anesthesia Denies family history of Ovarian cancer Social History Smoking Status: Never smoker Age Quit Using Tobacco: 42; Second Hand Exposure: Yes (FAMILY SMOKED); Do You Dip or Chew Tobacco: No (several years ago); Hx Alcohol Use: Yes Alcohol type: beer Hx Substance Use: No Preferred Language: Marshallese Communication Ability: Effective Visual Impairment: No Limitations Hearing Ability: Normal Bilingual Patient Support Caseworker Required: No Beliefs That Will Affect Care: None marital status: Current Living Situation: Spouse current occupational status: retired Other Information That Helps Us Care for You: No Feels Safe at Home: Yes Safety Concerns: Feels Safe At This Time Childhood Exposure to Second-Hand Smoke: No Diet Comment: regular caffeine: No during the past year weight has: decreased > 10 lbs Dental Care, Regularly: No Physical Activity Frequency: Daily Physical Activity Frequency Comment: limited by physical condition Seatbelt Use: always Sunscreen Use: No Assistive Devices: Walker Review of Systems Constitutional: + fatigue; no fever and no chills Respiratory: no cough and no dyspnea Cardiovascular: no chest pain Gastrointestinal: no problem reported Integumentary: notes he is more pale than usual Psychiatric: no problem reported Hematologic / Lymphatic: + easy bleeding Physical Exam Constitutional: well developed Neck: normal visual inspection Respiratory: normal respiratory effort Cardiovascular: Extremities: no edema Gastrointestinal (Abdomen): Inspection/Auscultation: abdomen normal to inspection Percussion/Palpation: + abdomen tender and abdomen soft Musculoskeletal: Head/Neck/Chest: normocephalic Skin: + pallor Psychiatric: Orientation: alert and oriented x 3 drowsy this AM Results & Data ([facility]) Vital Signs (Past 12 Hours) Vital Signs Temp Pulse Resp BP Pulse Ox 12/06/20 07:14 36.8 C 67 16 131/67 99 PG Care Time/CCT Total # of Minutes Spent Total Time Spent with Patient: Total time spent is greater than 50% in coordination of care (as documented) at patient's floor/unit and/or counseling patient: Coding Level of Care Code 46695 Initial Inpt Care Lvl 3 Diagnoses Anemia due to GI blood loss D50.0
--- NOTE | 2020-12-06 11:05 | Hospitalist Progress Note ---
Date of Service December 06, 2020 Assessment & Plan (1) GI bleed: Presented with dyspepsia, nausea, and soft black, Heme+ stools Was on FeSO4 upon discharge from [facility] 3 weeks ago, and also received COVID vaccine 2 days before nausea started Hgb 8.9 on arrival in ER which was stable from 2 days prior but down 1 gram from post-op hgb 3 weeks prior Hgb today down further to 7.5 -EGD 12/06 showed grade 1 esophageal varices but no active bleeding, stomach polyps -dc PPI gtt and change to Protonix 40mg po bid -adv diet to clears for today -appreciate GI consult -may need colonoscopy and video capsule as outpt? (2) Anemia due to GI blood loss: as above transfuse 1 unit PRBCs today for hgb drop further to 7.5 in setting of GIB follow CBC normocytic anemia at baseline, also had recent TKA contributing to worsening baseline from blood loss during surgery -Fe studies here more consistent with anemia of chronic dz -check B12, folate, TSH in AM (3) Alcohol dependence: drinks 6 beers daily now, used to drink 1-2 case of beer daily, has cut down since knee surgery Mild elevation of LFTs consistent with alcoholic hepatitis -continue gabapentin taper for prevention of withdrawal -ativan prn continue IV thiamine and folic acid encouraged cessation follow LFTs in AM (4) Liver cirrhosis, alcoholic: Child BAILON -6 MELD 10 No acute needs - INR 1.2 Encouraged EtOH cessation f/u with GI as outpt with trace esophageal varices on EGD should be on beta leigh for portal HTN-will add on prior to discharge (5) Esophageal varices: Small to moderate per CT scan and trace varices mid-esophagus on EGD here - Rocephin 1GM q day for prophylaxis in setting of possible bleeding varices was given- this will also cover concern for cellulitis of knee which looks improved - Control BP -non bleeding on EGD (6) Nausea: Zofran- therapy as above continue PPI could be from Fe tablets (7) Diabetes mellitus, type 2: Hold oral glycemics from home (metformin, alogliptin) -add SSI Novolog accuchecks qachs -check A1C - hypoglycemia protocol (8) Hypertension: BPs acceptable Patient was previously noted to be on propranolol - not on current medication list - look at re-introducing post EGD and bleeding ruled out. (9) Right leg numbness: Gabapentin with withdrawl protocol. 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 No abd pain. Has had black stools. No hematemesis. Denies CP but has felt a little SOB. Denies lightheadedness. Consented for PRBC transfusion. He admits to cutting down to drinking 6 beers a day since his knee surgery, used to drink 24 beers/day. Review of Systems Review of Systems: All systems reviewed & are unremarkable except as noted in HPI & below Physical Exam Constitutional: WD/WN, vitals as above Eyes: + anicteric sclerae Neck: trachea midline, no thyromegaly Respiratory: normal respiratory effort, lungs clear to auscultation Cardiovascular: RRR, no murmur, no edema Chest (Breasts): Chest: normal inspection of chest Gastrointestinal (Abdomen): Inspection/Auscultation: abdomen normal to inspection and normal bowel sounds; abdomen not distended Percussion/Palpation: + abdomen tender (mild in epigastric region w/o guarding or rebound) and abdomen soft Musculoskeletal: Extremities: extremities normal to inspection; no cyanosis and no clubbing Neurologic: moves all extremities and awake; no focal motor deficits Psychiatric: A+Ox3, euthymic affect Lymphatic: no lymphedema Results & Data Results & Data ([facility]) Vital Signs (Past 12 Hours) Vital Signs Temp Pulse Resp BP Pulse Ox 02/26/21 07:14 36.8 C 67 16 131/67 99 Laboratory Results 12/06/20 12/06/20 12/06/20 Range/Units 20:57 20:49 17:49 WBC 3.73 L (4.8-10.8) K/uL RBC 2.95 L (4.7-6.1) M/uL Hgb 8.7 L (14.0-18.0) g/dL Hct 26.5 L (42-52) % MCV 89.8 (80-100) fL MCH 29.5 (25-34) pg MCHC 32.8 (32-36) g/dL RDW Std Deviation 55.5 H (36.4-46.3) fL RDW Coeff of Elliot 17.6 H (11.5-14.5) % Plt Count 142 (130-400) K/uL MPV 8.9 (7.4-10.4) fL Immature Gran % (Auto) % Neut % (Auto) % Lymph % (Auto) % Owen % (Auto) % Eos % (Auto) % Baso % (Auto) % Neut # (Auto) (1.4-6.5) K/uL Lymph # (Auto) (1.2-3.4) K/uL Owen # (Auto) (0.11-0.59) K/uL Eos # (Auto) (0-0.5) K/uL Baso # (Auto) (0-0.2) K/uL Immature Gran # (Auto) (0.00-0.02) K/uL RBC Morphology PT (9.0-12.0) Seconds INR (0.9-1.1) Sodium (136-145) mmol/L Potassium (3.5-5.1) mmol/L Chloride (98-107) mmol/L Carbon Dioxide (21-32) mmol/L Anion Gap (3-11) BUN (7-18) mg/dl Creatinine (0.6-1.4) mg/dl Est Cr Clr Drug Dosing ml/min Est GFR ( Amer) Est GFR (Non-Af Amer) BUN/Creatinine Ratio (10-20) Glucose (70-99) mg/dl POC Glucose 142 H 125 H (70-99) mg/dl Calcium (8.5-10.1) mg/dl Magnesium (1.8-2.4) mg/dl Iron (35-175) mcg/dl TIBC (250-450) mcg/dl Ferritin (8-388) ng/ml Total Bilirubin (0.2-1) mg/dl Direct Bilirubin (0-0.2) mg/dl AST (15-37) U/L ALT (12-78) U/L Alkaline Phosphatase (45-117) U/L Total Protein (6.4-8.2) gm/dl Albumin (3.4-5.0) gm/dl Globulin (2.5-4.0) gm/dl Albumin/Globulin Ratio (0.9-2) Blood Type Antibody Screen Crossmatch 12/06/20 12/06/20 12/06/20 Range/Units 14:27 06:46 06:46 WBC (4.8-10.8) K/uL RBC (4.7-6.1) M/uL Hgb (14.0-18.0) g/dL Hct (42-52) % MCV (80-100) fL MCH (25-34) pg MCHC (32-36) g/dL RDW Std Deviation (36.4-46.3) fL RDW Coeff of Elliot (11.5-14.5) % Plt Count (130-400) K/uL MPV (7.4-10.4) fL Immature Gran % (Auto) % Neut % (Auto) % Lymph % (Auto) % Owen % (Auto) % Eos % (Auto) % Baso % (Auto) % Neut # (Auto) (1.4-6.5) K/uL Lymph # (Auto) (1.2-3.4) K/uL Owen # (Auto) (0.11-0.59) K/uL Eos # (Auto) (0-0.5) K/uL Baso # (Auto) (0-0.2) K/uL Immature Gran # (Auto) (0.00-0.02) K/uL RBC Morphology PT 12.4 H (9.0-12.0) Seconds INR 1.2 H (0.9-1.1) Sodium 143 (136-145) mmol/L Potassium 3.4 L (3.5-5.1) mmol/L Chloride 113 H (98-107) mmol/L Carbon Dioxide 24 (21-32) mmol/L Anion Gap 6.0 (3-11) BUN 18 (7-18) mg/dl Creatinine 0.72 (0.6-1.4) mg/dl Est Cr Clr Drug Dosing 83.5 ml/min Est GFR ( Amer) 103.6 Est GFR (Non-Af Amer) 89.3 BUN/Creatinine Ratio 24.9 H (10-20) Glucose 146 H (70-99) mg/dl POC Glucose 151 H (70-99) mg/dl Calcium 8.1 L (8.5-10.1) mg/dl Magnesium 2.3 (1.8-2.4) mg/dl Iron 23 L (35-175) mcg/dl TIBC 247 L (250-450) mcg/dl Ferritin 180.3 (8-388) ng/ml Total Bilirubin 1.0 (0.2-1) mg/dl Direct Bilirubin 0.5 H (0-0.2) mg/dl AST 67 H (15-37) U/L ALT 40 (12-78) U/L Alkaline Phosphatase 184 H (45-117) U/L Total Protein 5.9 L (6.4-8.2) gm/dl Albumin 2.6 L (3.4-5.0) gm/dl Globulin 3.3 (2.5-4.0) gm/dl Albumin/Globulin Ratio 0.8 L (0.9-2) Blood Type Antibody Screen Crossmatch 12/06/20 12/06/20 12/06/20 Range/Units 06:46 05:54 04:47 WBC 3.42 L (4.8-10.8) K/uL RBC 2.57 L (4.7-6.1) M/uL Hgb 7.5 L (14.0-18.0) g/dL Hct 23.2 L (42-52) % MCV 90.3 (80-100) fL MCH 29.2 (25-34) pg MCHC 32.3 (32-36) g/dL RDW Std Deviation 57.5 H (36.4-46.3) fL RDW Coeff of Elliot 17.8 H (11.5-14.5) % Plt Count 126 L (130-400) K/uL MPV 9.3 (7.4-10.4) fL Immature Gran % (Auto) 0.0 % Neut % (Auto) 43.8 % Lymph % (Auto) 45.0 % Owen % (Auto) 9.4 % Eos % (Auto) 1.5 % Baso % (Auto) 0.3 % Neut # (Auto) 1.50 (1.4-6.5) K/uL Lymph # (Auto) 1.54 (1.2-3.4) K/uL Owen # (Auto) 0.32 (0.11-0.59) K/uL Eos # (Auto) 0.05 (0-0.5) K/uL Baso # (Auto) 0.01 (0-0.2) K/uL Immature Gran # (Auto) 0.00 (0.00-0.02) K/uL RBC Morphology Unremarkable PT (9.0-12.0) Seconds INR (0.9-1.1) Sodium (136-145) mmol/L Potassium (3.5-5.1) mmol/L Chloride (98-107) mmol/L Carbon Dioxide (21-32) mmol/L Anion Gap (3-11) BUN (7-18) mg/dl Creatinine (0.6-1.4) mg/dl Est Cr Clr Drug Dosing ml/min Est GFR ( Amer) Est GFR (Non-Af Amer) BUN/Creatinine Ratio (10-20) Glucose (70-99) mg/dl POC Glucose 143 H 133 H (70-99) mg/dl Calcium (8.5-10.1) mg/dl Magnesium (1.8-2.4) mg/dl Iron (35-175) mcg/dl TIBC (250-450) mcg/dl Ferritin (8-388) ng/ml Total Bilirubin (0.2-1) mg/dl Direct Bilirubin (0-0.2) mg/dl AST (15-37) U/L ALT (12-78) U/L Alkaline Phosphatase (45-117) U/L Total Protein (6.4-8.2) gm/dl Albumin (3.4-5.0) gm/dl Globulin (2.5-4.0) gm/dl Albumin/Globulin Ratio (0.9-2) Blood Type Antibody Screen Crossmatch 12/05/20 Range/Units 16:03 WBC (4.8-10.8) K/uL RBC (4.7-6.1) M/uL Hgb (14.0-18.0) g/dL Hct (42-52) % MCV (80-100) fL MCH (25-34) pg MCHC (32-36) g/dL RDW Std Deviation (36.4-46.3) fL RDW Coeff of Elliot (11.5-14.5) % Plt Count (130-400) K/uL MPV (7.4-10.4) fL Immature Gran % (Auto) % Neut % (Auto) % Lymph % (Auto) % Owen % (Auto) % Eos % (Auto) % Baso % (Auto) % Neut # (Auto) (1.4-6.5) K/uL Lymph # (Auto) (1.2-3.4) K/uL Owen # (Auto) (0.11-0.59) K/uL Eos # (Auto) (0-0.5) K/uL Baso # (Auto) (0-0.2) K/uL Immature Gran # (Auto) (0.00-0.02) K/uL RBC Morphology PT (9.0-12.0) Seconds INR (0.9-1.1) Sodium (136-145) mmol/L Potassium (3.5-5.1) mmol/L Chloride (98-107) mmol/L Carbon Dioxide (21-32) mmol/L Anion Gap (3-11) BUN (7-18) mg/dl Creatinine (0.6-1.4) mg/dl Est Cr Clr Drug Dosing ml/min Est GFR ( Amer) Est GFR (Non-Af Amer) BUN/Creatinine Ratio (10-20) Glucose (70-99) mg/dl POC Glucose (70-99) mg/dl Calcium (8.5-10.1) mg/dl Magnesium (1.8-2.4) mg/dl Iron (35-175) mcg/dl TIBC (250-450) mcg/dl Ferritin (8-388) ng/ml Total Bilirubin (0.2-1) mg/dl Direct Bilirubin (0-0.2) mg/dl AST (15-37) U/L ALT (12-78) U/L Alkaline Phosphatase (45-117) U/L Total Protein (6.4-8.2) gm/dl Albumin (3.4-5.0) gm/dl Globulin (2.5-4.0) gm/dl Albumin/Globulin Ratio (0.9-2) Blood Type O Positive Antibody Screen NEGATIVE Crossmatch See Detail PG Care Time/CCT Total # of Minutes Spent Total Time Spent with Patient: Total time spent is greater than 50% in coordination of care (as documented) at patient's floor/unit and/or counseling patient: Coding Level of Care Code 91787 Subseq Hosp Care Lvl 3 Diagnoses GI bleed K29.71 GI bleed type/associated pathology: gastritis Gastritis type: unspecified gastritis Anemia due to GI blood loss D50.0 Alcohol dependence F10.20 Liver cirrhosis, alcoholic K70.30 Ascites presence: without ascites Esophageal varices I85.00 Esophageal varices bleeding: without bleeding Esophageal varices type: unspecified type Nausea R11.0 Diabetes mellitus, type 2 E11.9 Chronic kidney disease stage 3 subtype: stage 3a (GFR 45-59) 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 mellitus 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 insulin use: without senior care use Hypertension I10 Hypertension type: essential hypertension Right leg numbness R20.0 Depression F32.9 Elevated alkaline phosphatase level R74.8 GERD (gastroesophageal reflux disease) K21.9 Hypercholesterolemia E78.00 Pancreatic mass K86.89 Restless legs syndrome G25.81 Thrombocytopenia D69.6 Hypokalemia E87.6 Hypomagnesemia E83.42 DVT prophylaxis Z29.9 (1) GI bleed GI bleed type/associated pathology: gastritis Gastritis type: unspecified gastritis Qualified Code(s): K29.71 - Gastritis, unspecified, with bleeding (2) Diabetes mellitus, type 2 Chronic kidney disease stage 3 subtype: stage 3a (GFR 45-59) Diabetes mellitus 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 insulin use: without 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 use (3) Esophageal varices Esophageal varices bleeding: without bleeding Esophageal varices type: unspecified type Qualified Code(s): I85.00 - Esophageal varices without bleeding (4) Liver cirrhosis, alcoholic Ascites presence: without ascites Qualified Code(s): K70.30 - Alcoholic cirrhosis of liver without ascites (5) Hypertension Hypertension type: essential hypertension Qualified Code(s): I10 - Essential (primary) hypertension
--- NOTE | 2020-12-06 13:21 | Anesthesiology Consultation ---
Date of Service December 06, 2020 Assessment & Plan Chart Review Chart Review: Acceptable Risk for Surgery Consults Requested none History Surgery Operation Date: 12/06/20 17:10 Proposed Procedures p Esophagogastroduodenoscopy Dr Elijah Ott Case, DO Height/Weight Height: 5 ft 10 in Weight: 69.8 kg Allergies Allergy/AdvReac Type Severity Reaction Status Date / Time No Known Allergies Allergy Verified 12/05/20 18:20 Medications Home Medications Medication Instructions Recorded Confirmed Last Taken atorvastatin 80 mg PO HS 06/13/19 12/05/20 11/11/20 21:00 venlafaxine 225 mg PO QAM 11/21/19 12/05/20 11/11/20 10:00 gabapentin 100 mg capsule 0 mg PO HS cap 01/31/20 12/05/20 11/11/20 21:00 pantoprazole 40 mg tablet,delayed 40 mg PO QAM tab 01/31/20 12/05/20 11/11/20 10:00 release metformin 1,000 mg tablet 1,000 mg PO BID #180 tab 05/30/20 12/05/20 11/11/20 21:00 alogliptin 25 mg tablet 25 mg PO QAM 08/02/20 12/05/20 11/11/20 10:00 acetaminophen 1,000 mg PO BID PRN 12/05/20 12/05/20 Unknown methocarbamol 500 mg PO TID PRN 12/05/20 12/05/20 Unknown ondansetron 4 mg PO Q6H PRN 12/05/20 12/05/20 Unknown Active Medications Generic Name Dose Route Start Last Admin Trade Name Randolphq PRN Reason Stop Dose Admin Acetaminophen 1,000 mg 12/05/20 21:02 12/05/20 22:39 Acetaminophen 500 Mg Tab PO 01/04/21 21:01 1,000 mg BID PRN Administration Pain Atorvastatin Calcium 80 mg 12/05/20 21:02 12/05/20 22:37 Atorvastatin 40 Mg Tab PO 01/04/21 21:01 80 mg HS AMNA Administration Pantoprazole Sodium 40 mg/ 100 mls @ 20 mls/hr 12/05/20 16:12 12/06/20 08:27 Dextrose IV 01/04/21 16:11 8 mg/hr Q5H AMNA 20 mls/hr Administration 8 MG/HR Ceftriaxone Sodium 1,000 mg/ 50 mls @ 100 mls/hr 12/05/20 22:00 12/06/20 01:38 Dextrose IV 12/15/20 21:59 Infused Q24H AMNA Infusion Protocol Folic Acid 1 mg/ Syringe 10 mls @ 5 mls/min 12/05/20 21:02 12/06/20 08:28 IV 01/04/21 21:01 5 mls/min QAM AMNA Administration Lactated Ringer's 1,000 mls @ 80 mls/hr 12/05/20 21:02 12/06/20 06:03 Lr IV 01/04/21 21:01 80 mls/hr .[id number] AMNA Administration Thiamine HCl 100 mg/ Syringe 10 mls @ 2 mls/min 12/05/20 21:02 12/06/20 08:28 IV 01/04/21 21:01 2 mls/min QAM AMNA Administration Venlafaxine HCl 225 mg 12/06/20 09:00 12/06/20 08:27 Venlafaxine Hcl Xr 75 Mg Capxr PO 01/05/21 08:59 225 mg QAM AMNA Administration NPO Date Last Intake of Fluids: 12/06/20 Time Last Intake of Fluids: 07:00 Last Intake of Fluids Comment: sip Date Last Intake of Solids: 12/04/20 Time Last Intake of Solids: 18:00 Past Medical History Medical History Alcohol dependence Anemia chronic, baseline hgb 10-11 range per chart review Anxiety Bilateral primary osteoarthritis of knee Carpal tunnel syndrome Cervical spondylosis without myelopathy Chronic gastric ulcer remote hx per records, pt states unaware Depression Diabetes mellitus, type 2 NIDDM Esophageal varices Grade 1 small varices in the lower third of the esophagus per 09/30/20 EGD, undergoes routine surveillance EGDs Fatty liver GERD (gastroesophageal reflux disease) controlled Hiatal hernia History of gastric polyp History of prostate cancer s/p prostatectomy (1998), no chemo/no radiation Hypercholesterolemia Hypertension 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, alcoholic hx small esophageal varices (09/2020) under surveillance, no banding indicated on most recent EGD, follows with [facility], stable Lumbar stenosis Pancreatitis 2017 Restless legs syndrome Thrombocytopenia hx cirrhosis, chronic mild thrombocytopenia Past Family History Family History Sister Family history of diabetes mellitus Breast cancer Mother Colorectal cancer Brother Prostate cancer Colorectal cancer Father Myocardial infarction Son Thyroid disease Mother Family history of diabetes mellitus Sister Family history of diabetes mellitus Sister Family history of diabetes mellitus Other No family history of adverse response to anesthesia Denies family history of Ovarian cancer Past Surgical History Surgical History History of biopsy pancreatic mass biopsy on 07/01/2020 - benign History of colonoscopy (06/2018) History of cystoscopy d/t incontinence History of esophagogastroduodenoscopy (EGD) (11/2019) 11/30/19: MAC sedation at [facility] History of laminectomy X3 History of prostatectomy History of right inguinal hernia repair History of tooth extraction Hx of cervical spine surgery (12/2019) C3-C6 laminectomy, C3-T1 PCF Hx of inguinal hernia surgery (09/14/19) Open Right Inguinal Hernia Repair with Mesh: 09/14/19: LMA#5 at [facility] S/P total knee arthroplasty 11/12/20 Dr. Khoa Fink- [facility] Social History Smoking Status: Never smoker tobacco type: smokeless tobacco Do You Dip or Chew Tobacco: No (several years ago) Hx Alcohol Use: Yes Alcohol type: beer alcohol intake frequency: 0-2 drinks per day Hx Substance Use: No substance use type: does not use Physical Exam Vital Signs Last Vital Signs Temp 36.5 C 12/06/20 12:45 Pulse 79 12/06/20 12:45 Resp 18 12/06/20 12:45 BP 150/76 H 12/06/20 12:45 Pulse Ox 99 12/06/20 12:45 Testing Laboratory Results 12/06/20 06:46 12/06/20 06:46 PT 12.4 Seconds (9.0-12.0) H 12/06/20 06:46 INR 1.2 (0.9-1.1) H 12/06/20 06:46 APTT 24.2 Seconds (21.0-31.0) 12/05/20 16:03 Blood Type O Positive 12/05/20 16:03 Antibody Screen NEGATIVE 12/05/20 16:03 12/06/20 12/06/20 05:54 04:47 POC Glucose 143 H 133 H
[2020-12-06] MEDS ORDERED: PROPOFOL IV EMULSION 10 MG/ML 20 ML VIAL IV ONE (13:38)
[2020-12-06] MEDS ORDERED: ONDANSETRON INJ 2 MG/ML 2 ML VIAL ONE (13:38)
[2020-12-06] MEDS ORDERED: LIDOCAINE HCL 2% 2 ML VIAL/AMP(20MG/ML) INFIL ONE (13:38)
[2020-12-06] MEDS ORDERED: GLYCOPYRROLATE 0.2 MG/ML VIAL ONE (13:38)
--- NOTE | 2020-12-06 13:52 | GI REPORT ---
Patient Name: Gary Huggins Procedure Date: 12/06/2020 12:52 PM Date of : 1940 Admit Type: Inpatient Age: 80 Gender: Male Attending MD: Ashwin Nava DO Procedure: Upper GI endoscopy Providers: Ashwin Nava DO Referring MD: Maria Esther Viveros Indications: Acute post hemorrhagic anemia Medicines: Monitored Anesthesia Care Complications: No immediate complications. Estimated Blood Loss: Estimated blood loss: none. Procedure: Pre-Anesthesia Assessment: - Prior to the procedure, a History and Physical was performed, and patient medications and allergies were reviewed. The patient's tolerance of previous anesthesia was also reviewed. The risks and benefits of the procedure and the sedation options and risks were discussed with the patient. All questions were answered, and informed consent was obtained. Prior Anticoagulants: The patient has taken no previous anticoagulant or antiplatelet agents. ASA Grade Assessment: III - A patient with severe systemic disease. After reviewing the risks and benefits, the patient was deemed in satisfactory condition to undergo the procedure. After obtaining informed consent, the endoscope was passed under direct vision. Throughout the procedure, the patient's blood pressure, pulse, and oxygen saturations were monitored continuously. The Endoscope was introduced through the mouth, and advanced to the second part of duodenum. The upper GI endoscopy was accomplished without difficulty. The patient tolerated the procedure well. Findings: Trace esophageal Varices were found in the middle third of the esophagus. A small hiatal hernia was present. Multiple 2 to 15 mm sessile polyps with no bleeding and no stigmata of recent bleeding were found in the gastric fundus and on the greater curvature of the stomach. The examined duodenum was normal. Impression: - Esophageal varices. - Small hiatal hernia. - Multiple gastric polyps. - Normal examined duodenum. - No specimens collected. Recommendation: - [facility] patient to [facility]. - Advance diet as tolerated. - Continue present medications. Ashwin Nava DO 12/06/2020 1:51:25 PM This report has been signed electronically. Note Initiated On: 12/06/2020 12:52 PM Number of Addenda: 0 I attest to the content of the Intraoperative Record and orders documented therein, exceptions below {[id number]}
--- NOTE | 2020-12-06 14:05 | Electrocardiogram Report ---
Test Reason : Blood Pressure : / mmHG Vent. Rate : 076 BPM Atrial Rate : 076 BPM P-R Int : 166 ms QRS Dur : 088 ms QT Int : 450 ms P-R-T Axes : 044 -21 -41 degrees QTc Int : 506 ms Normal sinus rhythm Abnormal ECG When compared with ECG of 03-DEC-2020 17:14, Nonspecific T wave abnormality, worse in Inferior leads T wave inversion now evident in Anterior leads Confirmed by Franklyn Norris ([id number]) on 12/06/2020 2:05:26 PM Referred By: Elliott Ng Confirmed By:Sravan Norris
--- NOTE | 2020-12-06 14:19 | Anesthesiology Progress Note ---
Date of Service December 06, 2020 Anesthesia Post Procedure Vital Signs Vital Signs: Temp Pulse Pulse Resp BP BP Pulse Ox 12/06/20 14:16 36.2 C L 78 16 117/63 99 12/06/20 14:13 77 16 117/63 99 12/06/20 13:57 77 18 123/61 99 12/06/20 13:45 36.1 C L 86 16 100/51 L 99 12/06/20 13:42 86 16 100/51 L 99 12/06/20 12:45 36.5 C 79 18 150/76 H 99 12/06/20 12:15 36.4 C L 76 18 142/79 H 100 12/06/20 11:45 36.4 C L 78 18 143/72 H 98 12/06/20 11:44 36.4 C L 78 18 143/72 H 98 12/06/20 11:27 36.7 C 82 18 132/77 12/06/20 11:15 36.6 C 82 16 149/77 H 99 12/06/20 11:10 36.6 C 82 16 149/77 H 12/06/20 07:14 36.8 C 67 16 131/67 99 12/05/20 22:30 36.6 C 83 18 146/67 H 100 12/05/20 21:03 36.6 C 89 155/81 H 100 12/05/20 19:30 79 24 136/75 100 12/05/20 19:01 83 21 100 12/05/20 18:31 79 21 100 12/05/20 18:30 82 27 H 154/78 H 100 12/05/20 18:20 82 21 100 12/05/20 18:10 82 24 100 12/05/20 18:01 86 21 99 12/05/20 18:00 83 25 H 147/76 H 100 12/05/20 17:50 84 30 H 100 12/05/20 17:40 86 25 H 99 12/05/20 17:31 82 23 12/05/20 17:30 79 23 151/84 H 12/05/20 17:20 79 23 100 12/05/20 17:10 78 19 100 12/05/20 17:05 81 19 97 12/05/20 16:40 82 27 H 100 12/05/20 16:31 79 24 100 12/05/20 16:30 81 21 145/78 H 100 12/05/20 16:24 77 19 100 12/05/20 16:23 76 100 12/05/20 16:19 75 22 149/73 H 100 12/05/20 15:25 36.3 C L 85 16 149/86 H 100 Transfer of Care Handoff Completed per policy Notes Mental Status: alert / awake / arousable and participated in evaluation Patient Amnestic to Procedure: Yes Nausea / Vomiting: adequately controlled Pain: adequately controlled Airway Patency, RR, SpO2: stable & adequate BP & HR: stable & adequate Hydration State: stable & adequate Anesthetic Complications: no major complications apparent
[2020-12-06 20:56] LABS: Hematocrit (blood only) 26.5 % (42-52); Hemoglobin 8.7 g/dL (14.0-18.0); Mean Corpuscular Hemoglobin 29.5 pg (25-34); Mean Corpuscular Hgb Conc 32.8 g/dL (32-36); Mean Corpuscular Volume 89.8 fL (80-100); Mean Platelet Volume 8.9 fL (7.4-10.4); Platelet Count 142 K/uL (130-400); RDW Coefficient of Variation 17.6 % (11.5-14.5); RDW Standard Deviation 55.5 fL (36.4-46.3); Red Blood Count 2.95 M/uL (4.7-6.1); White Blood Count 3.73 K/uL (4.8-10.8)
[2020-12-06] MEDS: ATORVASTATIN 40 MG TAB PO SCH (21:26)
[2020-12-06] MEDS: PANTOprazole 40 MG TAB PO SCH (21:27)
[2020-12-06] MEDS: INSULIN ASPART 100 UNITS/ML 3 ML PEN SC SCH (22:26)
[2020-12-07] MEDS: ACETAMINOPHEN 500 MG TAB PO PRN (02:58)
[2020-12-07] MEDS: GABAPENTIN 400 MG CAP PO SCH (05:40)
[2020-12-07 06:54] LABS: Basophils # (auto) 0.01 K/uL (0-0.2); Basophils % (auto) 0.3 %; Eosinophils # (auto) 0.06 K/uL (0-0.5); Hematocrit (blood only) 25.4 % (42-52); Hemoglobin 8.2 g/dL (14.0-18.0); Lymphocytes % (auto) 47.5 %; Mean Corpuscular Hemoglobin 29.1 pg (25-34); Mean Corpuscular Hgb Conc 32.3 g/dL (32-36); Mean Corpuscular Volume 90.1 fL (80-100); Mean Platelet Volume 9.5 fL (7.4-10.4); Monocytes # (auto) 0.21 K/uL (0.11-0.59); Monocytes % (auto) 7.1 %; Neutrophils # (auto) 1.27 K/uL (1.4-6.5); Neutrophils % (auto) 43.1 %; Platelet Count 121 K/uL (130-400); RDW Coefficient of Variation 17.4 % (11.5-14.5); RDW Standard Deviation 55.5 fL (36.4-46.3); Red Blood Count 2.82 M/uL (4.7-6.1); White Blood Count 2.95 K/uL (4.8-10.8)
[2020-12-07 07:04] LABS: INR 1.2 (0.9-1.1); Prothrombin Time 11.9 Seconds (9.0-12.0)
[2020-12-07 07:09] LABS: Estimated Average Glucose 103 mg/dl; Hemoglobin A1C 5.2 % (4.5-5.6)
[2020-12-07] MEDS: VENLAFAXINE HCL XR 75 MG CAPXR PO SCH (07:57)
[2020-12-07] MEDS: PANTOprazole 40 MG TAB PO SCH (07:59)
[2020-12-07] MEDS: FOLIC ACID 1 MG in SYRINGE 9.8 ML IV SCH (07:59)
[2020-12-07] MEDS: THIAMINE HCL 100 MG in SYRINGE 9 ML IV SCH (07:59)
[2020-12-07 08:02] LABS: Albumin Level 2.6 gm/dl (3.4-5.0); BUN Creatinine Ratio 16.3 (10-20); Bilirubin Direct 0.6 mg/dl (0-0.2); Bilirubin,Total 1.3 mg/dl (0.2-1); Calcium 7.9 mg/dl (8.5-10.1); Creatinine Clr Calc Pharmacy 93.9 ml/min; Est GFR (African American) 108.7; Est GFR (Non-African American) 93.8; Magnesium 1.9 mg/dl (1.8-2.4); Potassium 3.4 mmol/L (3.5-5.1); Thyroid Stimulating Hormone 1.27 uIu/ml (0.300-4.500); Total Protein 5.6 gm/dl (6.4-8.2)
[2020-12-07] MEDS: INSULIN ASPART 100 UNITS/ML 3 ML PEN SC SCH ×2 (08:55→11:51)
[2020-12-07] MEDS ORDERED: POTASSIUM CHLORIDE CRTAB 20 MEQ TABCR PO STA (09:17)
--- NOTE | 2020-12-07 09:33 | Progress Notes ---
DATE: 12/07/2020 CHIEF COMPLAINT: Followup right knee replacement, now 3+ weeks out, admitted with possible GI bleed. HISTORY OF PRESENT ILLNESS: A 80-year-old gentleman now just a little over 3 weeks out from right total knee replacement. His knee has done pretty well. Had a little bit of drainage, so we left his stitches in at his clinic visit. He has been struggling with a lot of fatigue, tiredness, difficulty ambulating and was admitted with possible GI bleed. Workup has been equivocal. He had an EGD, which did not show any obvious bleeding. He did get a unit of blood and that seemed to make a big difference. I also think he has been hydrated which caused the decrease in his hemoglobin and hematocrit. He is doing well this morning. His knee pain is controlled. He feels much better after the blood transfusion. OBJECTIVE: VITAL SIGNS: Temperature is 36.7. Vital signs stable. GENERAL: Shows a pleasant elderly male. He is sitting up in his bedside chair, eating his breakfast. He looks comfortable and well. EXTREMITIES: Examination of the right knee reveals a well-healed incision. Just a little bit of a scab distally. No drainage. Really not much swelling. His range of motion is about 5-10 degrees short of full extension, about 105 degrees of flexion. He is neurologically intact. LABORATORY DATA: Most recent labs reveal a hemoglobin of 8.2. Hematocrit 25.4. Electrolytes are stable. ASSESSMENT: A 80-year-old gentleman now 3+ weeks out from a total knee replacement complicated by likely dehydration and anemia. The source of anemia could just be his knee replacement versus some GI bleeding. A GI workup has been negative to date. It looks like he has been volume resuscitated and I think it is probably helped him the most. He has got some fluid and a blood transfusion. He is looking much better today. His knee incision looks good. No signs of infection. PLAN: At this point, we will resume PT and OT. Management as per the medicine service. I do not think he can be taken off anticoagulation as long as he mobilizes. Should continue wearing his RIVKA stockings. I removed his chanelle today. I need to see him back in about a month. Any orthopedic questions can be directed to me at [phone].
--- NOTE | 2020-12-07 12:18 | Gastroenterology Progress Note ---
Date of Service December 07, 2020 Assessment & Plan (1) Anemia due to GI blood loss: Doing much better at this time. No obvious source of GI bleeding noted on EGD Would recommend Pantoprazole 40 mg by mouth twice daily for 6 weeks Avoid trigger foods which worsen GI symptoms Abstain from all alcohol as it is a known GI irritant. Followup in our office as an outpatient for any further GI complaints. (2) Abdominal bloating with cramps: (3) Alcohol dependence: Admission and Anticipated Discharge Date Admission Date: December 05, 2020 Subjective Feeling much better today. He denies any abdominal pain, melena, hematochezia or hematemesis overnight. He is tolerating PO intake without difficulty. He has no further complaints. Review of Systems Review of Systems: All systems reviewed & are unremarkable except as noted in HPI & below Physical Exam Constitutional: + ill appearing; no acute distress Eyes: + anicteric sclerae ENMT: Ears: no hearing impairment Respiratory: normal respiratory effort, lungs clear to auscultation Cardiovascular: RRR, no murmur, no edema Gastrointestinal (Abdomen): normal bowel sounds, soft, nontender, no hepatosplenomegaly Skin: no rashes, warm and dry Psychiatric: A+Ox3, euthymic affect Results & Data Results & Data ([facility]) Vital Signs (Past 12 Hours) Vital Signs Temp Pulse Resp BP Pulse Ox 12/07/20 07:45 36.7 C 78 18 150/82 H 96 12/07/20 02:54 36.7 C 77 16 137/72 98 PG Care Time/CCT Total # of Minutes Spent Total Time Spent with Patient: Total time spent is greater than 50% in coordination of care (as documented) at patient's floor/unit and/or counseling patient: Coding Level of Care Code 33231 Subseq Hosp Care Lvl 3 Diagnoses Anemia due to GI blood loss D50.0 Abdominal bloating with cramps R14.0; R10.9 Alcohol dependence F10.20
--- NOTE | 2020-12-07 13:48 | Discharge Summary ---
Date of Service December 07, 2020 Admission HPI Per Admitting Provider 80 YOM with significant medical history for alcohol abuse, anemia, acholic cirrhosis, portal gastropathy and small esophageal varices, pancreatic pseudocyst, TKR done 2 weeks ago, HTN, DMII, RLS, he drinks 5 beers a day (drank 1-2 cases a day for years until 2019). Patient recently had a right TKR and was doing well, followed up with orthopaedics and concern for some drainage from the wound, was put on ABX for 10 days, but patient did not take secondary to his stomach hurting. The patient comes to the emergency room today, for continued complain to gastric fullness, belching, and pain. He was seen previously this week and negative workup, he was sent home with the addition of Zofran and Simethicone. The patient and his felt this helped a little bit, but did not take away the pain. The pain is generalized to the upper left quadrant. It does not radiate and gets worse with eating or intake. He has noticed that his bowel movements have been black and the consistency has changed to soft and mus hy. The also felt that the patient did look more pale than normal today as well. He had a heme positive stool in the emergency room and was started on Protonix drip following bolus, type and crossed. He will be admitted for trending of CBC, continue Protonix drip, GI consult for possible evaluation, and monitoring of stools. Principal Diagnosis Acute GI bleed, symptomatic anemia Discharge Exam Constitutional WD/WN, vitals as above Eyes + anicteric sclerae Neck trachea midline, no thyromegaly Respiratory normal respiratory effort, lungs clear to auscultation Cardiovascular RRR, no murmur, no edema Chest (Breasts) Chest: normal inspection of chest Gastrointestinal (Abdomen) normal bowel sounds, soft, nontender, no hepatosplenomegaly Musculoskeletal Extremities: extremities normal to inspection; no cyanosis and no clubbing Skin Knee incision is intact, no erythema or drainage, chanelle are removed Neurologic moves all extremities and awake; no focal motor deficits Psychiatric A+Ox3, euthymic affect Lymphatic no lymphedema Discharge Data Allergies Allergy/AdvReac Type Severity Reaction Status Date / Time No Known Allergies Allergy Verified 12/05/20 18:20 Consultations 12/05/20 21:02 Consult Gastroenterology Routine Procedures Performed Operation Date: 12/06/20 17:10 Actual Procedures p Esophagogastroduodenoscopy - Ashwin Ott Case, DO Ordered Studies 12/05/20 15:56 CT abd pelvis wo con Stat 12/05/20 16:05 CT head/brain wo con Stat Chest x-ray Hospital Course (1) GI bleed: Presented with dyspepsia, nausea, and soft black, Heme+ stools Was on FeSO4 upon discharge from [facility] 3 weeks ago, and also received COVID vaccine 2 days before nausea started Hgb 8.9 on arrival in ER which was stable from 2 days prior but down 1 gram from post-op hgb 3 weeks prior Hgb went down further to 7.5 on the day after admission and he was given 1 unit of PRBCs Hemoglobin the next day was up to 8.2 and he felt remarkably better, nausea was gone This may have been hemodilution all in the nausea may have been as a side effect of his Covid vaccine Overall anemia likely related to recent knee replacement with blood loss anemia -EGD 12/06 showed grade 1 esophageal varices but no active bleeding, stomach polyps -Continue Protonix 40mg po bid -Was tolerating regular diet the time of discharge Continue ferrous sulfate with stool softener after discharge Follow-up CBC with primary care physician on Wednesday -appreciate GI consult Advised abstinence from alcohol (2) Anemia due to GI blood loss: as above Status post 1 unit PRBCs transfused -Fe studies here more consistent with anemia of chronic dz -B12, folate, TSH all normal (3) Alcohol dependence: drinks 6 beers daily now, used to drink 1-2 case of beer daily, has cut down since knee surgery Mild elevation of LFTs consistent with alcoholic hepatitis -Received gabapentin taper for prevention of withdrawal which did make him dizzy and a little bit drowsy,-we will send him out on gabapentin 20 mg p.o. twice daily to help with neck pain as well as alcohol cravings-his reports that he drinks alcohol to take away his neck pain at times Was given IV thiamine and folic acid while here Strongly encouraged cessation-he is considering this follow LFTs as an outpatient in a few days (4) Liver cirrhosis, alcoholic: Child BAILON -6 MELD 10 No acute needs - INR 1.2 Encouraged EtOH cessation f/u with GI as outpt with trace esophageal varices on EGD should be on beta leigh for portal HTN-consider adding on as an outpatient with PCP (5) Esophageal varices: Small to moderate per CT scan and trace varices mid-esophagus on EGD here - Rocephin 1GM q day for prophylaxis in setting of possible bleeding varices was given- this will also cover concern for cellulitis of knee which looks improved - Control BP -non bleeding on EGD (6) Nausea: Zofran- therapy as above continue PPI could be from Fe tablets or COVID vaccine (7) Diabetes mellitus, type 2: Held oral glycemics from home (metformin, alogliptin) -used SSI Novolog accuchecks qachs - A1C here normal at 5.2% (8) Hypertension: BPs acceptable Patient was previously noted to be on propranolol - not on current medication list - look at re-introducing as an outpt (9) Right leg numbness: Gabapentin to be increased as above (10) Depression: continue Effexor (11) Elevated alkaline phosphatase level: likely secondary to fatty liver,cirrhosis, EtOH follow LFTs as outpt (12) GERD (gastroesophageal reflux disease): on PPI as above (13) Hypercholesterolemia: ok to continue statin (14) Pancreatic mass: h/o EUS last year for such-showed IPMN plan for repeat MRI pancreas 06/2021 (15) Restless legs syndrome: noted, continue gabapentin replace iron (16) 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 plts 121 today follow CBC (17) Hypokalemia: K+ mildly low 3.4 replace with po K+ (18) Hypomagnesemia: replaced on admission and resolved (19) DVT prophylaxis: SCDs Dispo-dc to home Total Time Total Time Spent Total Time Spent (In Minutes): 35 min Total Time Includes: Examination of the Patient, Discharge Planning and Medication Reconciliation Discharge Plan Discharge Items Patient Disposition: Home - Self-Care Reason For Visit: GI BLEED Discharge Diagnosis: Symptomatic anemia, Suspected GI Bleed, Alcohol dependence Condition on Discharge: Good Activity: Resume your previous activity Activity Comment: as per Orthopedic Surgery Non-emergency contact: Primary Care Provider, Surgeon and Ict Account Manager Call non-emergency contact if: you have any medication questions and your symptoms worsen Follow-up/Referrals: Elliott Ng CRNP [Primary Care Provider] - (Keep your follow up appointment already scheduled for next week.) Yamilet Orellana CRNP [Nurse Practitioner] - (Follow up within 1 month.) Khoa Fink MD [Physician] - (Follow up in 1 month for your recent knee surgery.) Diet: Carb Consistent or DM2 Ambulatory Orders: Complete Blood Count with Diff (Routine) Timeframe: 3 Days Location: Determined by Patient Ordered By: Annette Mojica Comprehensive Metabolic Panel (Routine) Timeframe: 3 Days Location: Determined by Patient Ordered By: Annette Mojica Addtl Attending Provider Instructions: You were admitted for nausea, anemia, and found to have blood in your stool. You had an endoscopy of the stomach which did not show any bleeding, but does show some plump blood vessels in the esophagus that are at risk for bleeding- these are result of your liver cirrhosis. Please continue on the Protonix at 40 mg twice daily. Follow-up with your primary care physician this week as scheduled and have a repeat complete blood count at that time to make sure that your blood count is continuing to trend upward. You received 1 unit of blood transfusion while here, and should continue on iron pills after discharge along with a stool softener. It is extremely important that you quit drinking all alcohol. Please continue on gabapentin at 200 mg twice daily-this medication will help with chronic pain in your neck but also help decrease cravings for alcohol. Your knee is much improved and Dr. Fink removed your chanelle. You are done with the antibiotics and Dr. Fink said you no longer need to take the aspirin. Please continue to wear your compression stockings and follow-up with him in 1 month. Follow-up with your primary care physician within 1 week. Follow-up with a bottom polisher within 1 month. Pending Studies at Discharge: No Stand-Alone Forms: [facility] Medications and DC Order Prescriptions: New ferrous sulfate 325 mg (65 mg iron) tablet,delayed release (DR/EC) 325 mg PO DAILY Qty: 30 RF: 0 docusate sodium 100 mg capsule 100 mg PO BID Qty: 60 RF: 0 Continued metformin 1,000 mg tablet 1,000 mg PO BID Qty: 180 RF: 4 alogliptin 25 mg tablet 25 mg PO QAM RF: 0 atorvastatin 80 mg tablet 80 mg PO HS RF: 0 venlafaxine 75 mg capsule,extended release 24hr 225 mg PO QAM RF: 0 acetaminophen 500 mg tablet 1,000 mg PO BID PRN (Reason: Pain) RF: 0 ondansetron 4 mg tablet,disintegrating 4 mg PO Q6H PRN (Reason: Nausea And Vomiting) RF: 0 methocarbamol 500 mg tablet 500 mg PO TID PRN (Reason: Muscle Spasm) RF: 0 Changed pantoprazole 40 mg tablet,delayed release (DR/EC) 40 mg PO BID Qty: 0 RF: 0 gabapentin 100 mg capsule 200 mg PO BID Qty: 120 RF: 0 Discharge Orders: Discharge Order (Routine); Ordered 12/07/20 Ordered By: Annette Sterling/Other Patient Handouts: Bleeding Gastrointestinal Admission Data Admit Date/Time: 12/05/20 19:06 Attending Provider: Annette Mojica Admit Provider: Galdino Orr Primary Care Provider: Elliott Ng Other Providers: Mynor Rizzo ; [facility] Other Interventions: Discharge Summary Assessment (RN) Last Done: 12/07/20 13:49 Coding Level of Care Code D/C Day Management >30 mins Diagnoses GI bleed K29.71 GI bleed type/associated pathology: gastritis Gastritis type: unspecified gastritis Anemia due to GI blood loss D50.0 Alcohol dependence F10.20 Liver cirrhosis, alcoholic K70.30 Ascites presence: without ascites Esophageal varices I85.00 Esophageal varices bleeding: without bleeding Esophageal varices type: unspecified type Nausea R11.0 Diabetes mellitus, type 2 E11.9 Chronic kidney disease stage 3 subtype: stage 3a (GFR 45-59) Diabetes mellitus long-term insulin use: without die casting supervisor use Hypertension I10 Hypertension type: essential hypertension Right leg numbness R20.0 Depression F32.9 Elevated alkaline phosphatase level R74.8 GERD (gastroesophageal reflux disease) K21.9 Hypercholesterolemia E78.00 Pancreatic mass K86.89 Restless legs syndrome G25.81 Thrombocytopenia D69.6 Hypokalemia E87.6 Hypomagnesemia E83.42 DVT prophylaxis Z29.9
[2020-12-07] MEDS ORDERED: GABAPENTIN 400 MG CAP PO SCH (21:00)
[2020-12-08] MEDS ORDERED: GABAPENTIN 400 MG CAP PO SCH
[2020-12-09] MEDS ORDERED: GABAPENTIN 400 MG CAP PO SCH (12:00)
== END 2020-12-07 16:12 | disposition home health service (06) | DRG 378 ==
LOC: ED 15:23 → SUATTDRO 19:06 → 3N 19:06

== ENCOUNTER 2021-04-02 14:50 | Inpatient (IN) ==
[2021-04-02 16:09] LABS: Basophils # (auto) 0.01 K/uL (0-0.2); Basophils % (auto) 0.1 %; Eosinophils # (auto) 0.01 K/uL (0-0.5); Eosinophils % (auto) 0.1 %; Hematocrit (blood only) 36.2 % (42-52); Immature Granulocytes # (auto) 0.02 K/uL (0.00-0.02); Immature Granulocytes % (auto) 0.3 %; Lymphocytes # (auto) 1.19 K/uL (1.2-3.4); Lymphocytes % (auto) 16.6 %; Mean Corpuscular Hemoglobin 22.4 pg (25-34); Mean Corpuscular Hgb Conc 30.4 g/dL (32-36); Mean Corpuscular Volume 73.7 fL (80-100); Mean Platelet Volume 9.1 fL (7.4-10.4); Monocytes # (auto) 0.72 K/uL (0.11-0.59); Neutrophils # (auto) 5.22 K/uL (1.4-6.5); Neutrophils % (auto) 72.9 %; Platelet Count 176 K/uL (130-400); RDW Coefficient of Variation 18.3 % (11.5-14.5); RDW Standard Deviation 48.8 fL (36.4-46.3); Red Blood Count 4.91 M/uL (4.7-6.1); White Blood Count 7.17 K/uL (4.8-10.8)
[2021-04-02 16:26] LABS: Alanine Aminotransferase 39 U/L (12-78); Albumin Level 3.9 gm/dl (3.4-5.0); Aspartate Aminotransferase 36 U/L (15-37); BUN Creatinine Ratio 11.6 (10-20); Blood Urea Nitrogen 7 mg/dl (7-18); Calcium 9.8 mg/dl (8.5-10.1); Carbon Dioxide 28 mmol/L (21-32); Chloride 96 mmol/L (98-107); Est GFR (African American) 112.4 ml/min; Glucose 149 mg/dl (70-99); Potassium 3.9 mmol/L (3.5-5.1); Sodium 133 mmol/L (136-145)
[2021-04-02 16:29] LABS: Albumin Globulin Ratio 0.9 (0.9-2); Alkaline Phosphatase 209 U/L (45-117); Bilirubin,Total 0.7 mg/dl (0.2-1); Globulin 4.4 gm/dl (2.5-4.0); Lipase 3649 U/L (73-393); Total Protein 8.3 gm/dl (6.4-8.2)
[2021-04-02] MEDS ORDERED: SODIUM CHLORIDE 0.9% 1000ML 1,000 ML IV STA (16:37)
[2021-04-02] MEDS ORDERED: ONDANSETRON INJ 2 MG/ML 2 ML VIAL IV STA (16:37)
[2021-04-02 16:38] LABS: Hypochromasia Present; Poikilocytosis Present; Polychromasia 1+
--- NOTE | 2021-04-02 16:44 | Emergency Department Note ---
Impression & Plan Acute pancreatitis, Abdominal ascites, Chest pain, Alcohol abuse ED Provider Note NAME: SABINA CLARK AGE: 80 SEX: M : 1940 ARRIVES VIA: Walk-In INFORMANT: Patient, the patient's significant other ED PROVIDER(S): Bird Wade DO CHIEF COMPLAINT: Epigastric pain HPI: The patient is a 80-year-old male who has a history of chronic alcohol use as well as pancreatitis who presented to the emergency department for an sarah luation of upper abdominal pain. The patient has noticed nausea but no vomiting. He denies having any fever or back pain. He does note pain that goes into his chest and into his neck. He states the pain is on the right side as well as the epigastric region. The pain is worsened with ambulation as well as palpation over the upper abdomen. He denies having any fever. He has had no hematemesis or black stool. He does continue to drink alcohol last use alcoholic beverages 2 nights ago. The patient has not seen his family doctor for the symptoms. He states the pain is moderate to severe. He states the pain is more of a dull ache at this time. It was sharp last evening when it first st arted. ROS: See above HPI for pertinent positives & negatives. A total of 10 systems reviewed and were otherwise negative. The patient did not take any pain m edication prior to coming to the emergency department. PAST MEDICAL HISTORY: See Below PAST SURGICAL HISTORY: See Below FAMILY HISTORY: See Below SOCIAL HISTORY: See Below HOME MEDICATIONS: See Below ALLERGIES: See Below VITALS: See Below PHYSICAL EXAMINATION: GENERAL: The patient is awake and alert. He is somewhat anxious appearing. EYES: The conjunctivae are clear. The pupils are round and reactive. EARS, NOSE, MOUTH AND THROAT: The nose is without any evidence of any deformity. NECK: The neck is nontender and supple. RESPIRATORY: Normal respiratory effort is noted there is no evidence of wheezing rhonchi or rales CARDIOVASCULAR: Regular rate and rhythm noted there no murmurs rubs or gallops normal S1 normal S2. GASTROINTESTINAL: The abdomen is mildly distended and diffusely tender. There is guarding in the right upper quadrant. MUSCULOSKELETAL/EXTREMITIES: There is no evidence of gross deformity full range of motion is noted in the hips and shoulders. SKIN: There is no obvious evidence of any rash. Skin was pale. There was trace pedal edema bilaterally. NEUROLOGIC: Patient is awake alert and oriented x3 strength is symmetric patellar reflexes are 2+ bilaterally MEDICAL DECISION MAKING: The patient is a 80-year-old male who presented to the emergency department for an evaluation of abdominal pain. The patient was experiencing abdominal as well as chest pain. The patient has had similar symptoms in the past. The patient has a history of pancreatitis. He also has a history of alcohol use. The patient was treated with pain medications and IV fluids in the emergency department. He was also treated with Protonix and Pepcid. He was reevaluated multiple times. Radiographic studies as well as laboratory studies confirm pancreatitis. The patient was also found to have ascites which would be a new finding for him I believe. I discussed the patient's laboratory and radiographic studies with him. I also discussed his case with the on-call [facility] hospitalist. They have agreed to evaluate the patient in the emergency department for further management and disposition. Triage Nursing notes reviewed. Prior medical records reviewed Vital Signs: reviewed and remarkable for elevated blood pressure. Differential diagnosis: Etiologies such as appendicitis, diverticulitis, obstruction, inflammatory bowel disease, renal colic, PUD, biliary pathology, pancreatitis, mesenteric ischemia, aortic pathology, infections, genitourinary, UTI, perforated viscus, as well as others were entertained. ER treatment provided: See below Diagnostics interpreted by me: ECG: EKG was obtained in the emergency department. My interpretation is normal sinus rhythm at 70 bpm. There is no ectopy. Anterior and low lateral ST depressions were noted. This was compared to a tracing from December 052020. No significant changes were noted. Cardiac Monitoring: An order was placed for continuous cardiac monitoring. The monitor shows a rate of 90 bpm with sinus rhythm. Laboratory studies: As stated above and show below. Imaging studies: See below Consultation(s): 191: [facility] Dr. Gonzalez will evaluate the patient. Past Med/Surg History Medical History (Updated 04/02/21 @ 23:16 by Bird Wade DO) Alcohol dependence Anemia chronic, baseline hgb 10-11 range per chart review Anxiety Bilateral primary osteoarthritis of knee Carpal tunnel syndrome Cervical spondylosis without myelopathy Depression Diabetes mellitus, type 2 NIDDM Esophageal varices Grade 1 small varices in the lower third of the esophagus per 09/30/20 EGD, undergoes routine surveillance EGDs Fatty liver GERD (gastroesophageal reflux disease) controlled Hiatal hernia History of gastric polyp History of prostate cancer s/p prostatectomy (1998), no chemo/no radiation Hypercholesterolemia Hypertension 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, alcoholic hx small esophageal varices (09/2020) under surveillance, no banding indicated on most recent EGD, follows with [facility], stable Lumbar stenosis Restless legs syndrome Thrombocytopenia hx cirrhosis, chronic mild thrombocytopenia Surgical History History of biopsy pancreatic mass biopsy on 07/01/2020 - benign History of colonoscopy (06/2018) History of cystoscopy d/t incontinence History of esophagogastroduodenoscopy (EGD) (11/2019) 11/30/19: MAC sedation at [facility] History of laminectomy X3 History of prostatectomy History of right inguinal hernia repair History of tooth extraction Hx of cervical spine surgery (12/2019) C3-C6 laminectomy, C3-T1 PCF Hx of inguinal hernia surgery (09/14/19) Open Right Inguinal Hernia Repair with Mesh: 09/14/19: LMA#5 at [facility] S/P total knee arthroplasty 11/12/20 Dr. Khoa Fink- [facility] Family History Sister Family history of diabetes mellitus Breast cancer Mother Colorectal cancer Brother Prostate cancer Colorectal cancer Father Myocardial infarction Son Thyroid disease Mother Family history of diabetes mellitus Sister Family history of diabetes mellitus Sister Family history of diabetes mellitus Other No family history of adverse response to anesthesia Denies family history of Ovarian cancer Social History Smoking Status: Never smoker Age Quit Using Tobacco: 42; Second Hand Exposure: No; Do You Dip or Chew Tobacco: No; Hx Alcohol Use: Yes Alcohol type: beer Alcohol Intake Frequency: 4 or More x per/Week Alcohol Intake Frequency Comment: at night 4-5 beers a night Hx Substance Use: No Preferred Language: Slovenian Communication Ability: Effective Visual Impairment: Limited Hearing Ability: Normal Photography Teacher Required: No Beliefs That Will Affect Care: None marital status: Current Living Situation: Spouse current occupational status: retired Other Information That Helps Us Care for You: No Feels Safe at Home: Yes Safety Concerns: Feels Safe At This Time Childhood Exposure to Second-Hand Smoke: No Diet Comment: regular caffeine: No during the past year weight has: decreased > 10 lbs Dental Care, Regularly: No Physical Activity Frequency: Daily Physical Activity Frequency Comment: limited by physical condition Seatbelt Use: always Sunscreen Use: No Assistive Devices: Glasses and Walker Allergies Allergies Allergy/AdvReac Type Severity Reaction Status Date / Time No Known Allergies Allergy Verified 04/02/21 16:46 Home Meds Home Medications Medication Instructions Recorded Confirmed atorvastatin 80 mg PO HS 06/13/19 04/02/21 venlafaxine 225 mg PO QAM 11/21/19 04/02/21 alogliptin 25 mg tablet 25 mg PO QAM 08/02/20 04/02/21 acetaminophen 1,000 mg PO BID PRN 12/05/20 04/02/21 methocarbamol 500 mg PO TID PRN 12/05/20 04/02/21 amlodipine 5 mg tablet 5 mg PO DAILY 12/10/20 04/02/21 propranolol 40 mg tablet 40 mg PO BID 12/10/20 04/02/21 oxycodone 5 mg capsule 5 mg PO BID PRN 03/04/21 04/02/21 Previous Rx's Medication Instructions Recorded metformin 1,000 mg tablet 1,000 mg PO BID #180 tab 05/30/20 gabapentin 200 mg PO BID #120 cap 12/07/20 pantoprazole 40 mg PO BID #0 tab 12/07/20 diazepam 5 mg tablet 5 mg PO ONCE PRN #2 tab 03/12/21 meclizine 25 mg tablet 25 mg PO BID PRN #20 tab 03/13/21 ondansetron 4 mg disintegrating 4 mg PO Q6H PRN #30 tab 03/26/21 tablet Results & Data (ED) Vital Signs Vital Signs - 24 hr 04/02/21 15:03 04/02/21 16:46 04/02/21 16:56 Temperature 36.5 C Temperature Source Temporal Artery Scan Pulse Rate 78 90 78 Pulse Rate from SpO2 Sensor 89 80 Respiratory Rate 18 23 24 Respiratory Effort / Characteristics Non-Labored Spontaneous Respiratory Depth Normal Respiratory Pattern Regular Blood Pressure 162/94 H 167/100 H Blood Pressure Mean 116 122 Blood Pressure Position Sitting Pulse Oximetry 99 98 99 Oxygen Delivery Method Room Air Room Air Sepsis Recent Fever Within 48 Hours No Sepsis New/Unexplained Change in Mental Status N/A Sepsis Action Taken by Nursing No Action Required 04/02/21 17:00 04/02/21 17:01 04/02/21 17:30 Temperature Temperature Source Pulse Rate 82 85 87 Pulse Rate from SpO2 Sensor 82 85 Respiratory Rate 19 19 20 Respiratory Effort / Characteristics Respiratory Depth Respiratory Pattern Blood Pressure 165/97 H Blood Pressure Mean 119 Blood Pressure Position Pulse Oximetry 99 98 Oxygen Delivery Method Sepsis Recent Fever Within 48 Hours Sepsis New/Unexplained Change in Mental Status Sepsis Action Taken by Nursing 04/02/21 17:34 04/02/21 17:35 04/02/21 18:00 Temperature Temperature Source Pulse Rate 86 89 86 Pulse Rate from SpO2 Sensor 84 89 87 Respiratory Rate 16 23 17 Respiratory Effort / Characteristics Respiratory Depth Respiratory Pattern Blood Pressure 145/84 H 165/91 H Blood Pressure Mean 104 115 Blood Pressure Position Pulse Oximetry 99 99 99 Oxygen Delivery Method Sepsis Recent Fever Within 48 Hours Sepsis New/Unexplained Change in Mental Status Sepsis Action Taken by Nursing 04/02/21 18:01 04/02/21 18:30 04/02/21 18:31 Temperature Temperature Source Pulse Rate 90 90 89 Pulse Rate from SpO2 Sensor 89 89 89 Respiratory Rate 18 20 20 Respiratory Effort / Characteristics Respiratory Depth Respiratory Pattern Blood Pressure 160/92 H Blood Pressure Mean 114 Blood Pressure Position Pulse Oximetry 97 97 97 Oxygen Delivery Method Sepsis Recent Fever Within 48 Hours Sepsis New/Unexplained Change in Mental Status Sepsis Action Taken by Nursing 04/02/21 19:00 04/02/21 19:01 04/02/21 19:30 Temperature Temperature Source Pulse Rate 88 90 92 H Pulse Rate from SpO2 Sensor 88 90 93 H Respiratory Rate 19 19 18 Respiratory Effort / Characteristics Respiratory Depth Respiratory Pattern Blood Pressure 163/99 H 148/94 H Blood Pressure Mean 120 112 Blood Pressure Position Pulse Oximetry 97 97 95 Oxygen Delivery Method Sepsis Recent Fever Within 48 Hours Sepsis New/Unexplained Change in Mental Status Sepsis Action Taken by Nursing 04/02/21 19:31 Temperature Temperature Source Pulse Rate 89 Pulse Rate from SpO2 Sensor 89 Respiratory Rate 20 Respiratory Effort / Characteristics Respiratory Depth Respiratory Pattern Blood Pressure Blood Pressure Mean Blood Pressure Position Pulse Oximetry 98 Oxygen Delivery Method Sepsis Recent Fever Within 48 Hours Sepsis New/Unexplained Change in Mental Status Sepsis Action Taken by Assisted Medications Current Medication List: was personally reviewed by me Laboratory Data Attestation: I reviewed the patient's lab results. Result diagrams: 04/02/21 15:51 04/02/21 15:51 Lab Results 04/02/21 04/02/21 04/02/21 Range/Units 15:51 15:51 15:51 WBC 7.17 (4.8-10.8) K/uL RBC 4.91 (4.7-6.1) M/uL Hgb 11.0 L (14.0-18.0) g/dL Hct 36.2 L (42-52) % MCV 73.7 L (80-100) fL MCH 22.4 L (25-34) pg MCHC 30.4 L (32-36) g/dL RDW Std Deviation 48.8 H (36.4-46.3) fL RDW Coeff of Elliot 18.3 H (11.5-14.5) % Plt Count 176 (130-400) K/uL MPV 9.1 (7.4-10.4) fL Immature Gran % (Auto) 0.3 % Neut % (Auto) 72.9 % Lymph % (Auto) 16.6 % [place] % (Auto) 10.0 % Eos % (Auto) 0.1 % Baso % (Auto) 0.1 % Neut # (Auto) 5.22 (1.4-6.5) K/uL Lymph # (Auto) 1.19 L (1.2-3.4) K/uL [place] # (Auto) 0.72 H (0.11-0.59) K/uL Eos # (Auto) 0.01 (0-0.5) K/uL Baso # (Auto) 0.01 (0-0.2) K/uL Immature Gran # (Auto) 0.02 (0.00-0.02) K/uL Polychromasia 1+ Hypochromasia Present Poikilocytosis Present Sodium 133 L (136-145) mmol/L Potassium 3.9 (3.5-5.1) mmol/L Chloride 96 L (98-107) mmol/L Carbon Dioxide 28 (21-32) mmol/L Anion Gap 9.0 (3-11) BUN 7 (7-18) mg/dl Creatinine 0.59 L (0.6-1.4) mg/dl Est Cr Clr Drug Dosing Not Reportable Est GFR ( Amer) 112.4 ml/min Est GFR (Non-Af Amer) 97.0 ml/min BUN/Creatinine Ratio 11.6 (10-20) Glucose 149 H (70-99) mg/dl Calcium 9.8 (8.5-10.1) mg/dl Total Bilirubin 0.7 (0.2-1) mg/dl AST 36 (15-37) U/L ALT 39 (12-78) U/L Alkaline Phosphatase 209 H (45-117) U/L Troponin I < 0.015 (0-0.045) ng/ml Total Protein 8.3 H (6.4-8.2) gm/dl Albumin 3.9 (3.4-5.0) gm/dl Globulin 4.4 H (2.5-4.0) gm/dl Albumin/Globulin Ratio 0.9 (0.9-2) Lipase 3649 H (73-393) U/L Urine Color Urine Appearance (Clear) Urine pH (4.5-7.5) Ur Specific [place] (1.000-1.030) Urine Protein (Negative) Urine Glucose (UA) (Negative) Urine Ketones (Negative) Urine Blood (Negative) Urine Nitrite (Negative) Urine Bilirubin (Negative) Urine Urobilinogen (Negative) Ur Leukocyte Esterase (Negative) COVID-19 Eval Order SARS-CoV-2 (PCR) (Negative) 04/02/21 04/02/21 04/02/21 Range/Units 17:15 17:35 17:35 WBC (4.8-10.8) K/uL RBC (4.7-6.1) M/uL Hgb (14.0-18.0) g/dL Hct (42-52) % MCV (80-100) fL MCH (25-34) pg MCHC (32-36) g/dL RDW Std Deviation (36.4-46.3) fL RDW Coeff of Elliot (11.5-14.5) % Plt Count (130-400) K/uL MPV (7.4-10.4) fL Immature Gran % (Auto) % Neut % (Auto) % Lymph % (Auto) % [place] % (Auto) % Eos % (Auto) % Baso % (Auto) % Neut # (Auto) (1.4-6.5) K/uL Lymph # (Auto) (1.2-3.4) K/uL [place] # (Auto) (0.11-0.59) K/uL Eos # (Auto) (0-0.5) K/uL Baso # (Auto) (0-0.2) K/uL Immature Gran # (Auto) (0.00-0.02) K/uL Polychromasia Hypochromasia Poikilocytosis Sodium (136-145) mmol/L Potassium (3.5-5.1) mmol/L Chloride (98-107) mmol/L Carbon Dioxide (21-32) mmol/L Anion Gap (3-11) BUN (7-18) mg/dl Creatinine (0.6-1.4) mg/dl Est Cr Clr Drug Dosing Est GFR ( Amer) ml/min Est GFR (Non-Af Amer) ml/min BUN/Creatinine Ratio (10-20) Glucose (70-99) mg/dl Calcium (8.5-10.1) mg/dl Total Bilirubin (0.2-1) mg/dl AST (15-37) U/L ALT (12-78) U/L Alkaline Phosphatase (45-117) U/L Troponin I (0-0.045) ng/ml Total Protein (6.4-8.2) gm/dl Albumin (3.4-5.0) gm/dl Globulin (2.5-4.0) gm/dl Albumin/Globulin Ratio (0.9-2) Lipase (73-393) U/L Urine Color Yellow Urine Appearance Clear (Clear) Urine pH 8.0 H (4.5-7.5) Ur Specific [place] 1.011 (1.000-1.030) Urine Protein Negative (Negative) Urine Glucose (UA) Negative (Negative) Urine Ketones Negative (Negative) Urine Blood Negative (Negative) Urine Nitrite Negative (Negative) Urine Bilirubin Negative (Negative) Urine Urobilinogen Negative (Negative) Ur Leukocyte Esterase Negative (Negative) COVID-19 Eval Order Covid19 at [facility] SARS-CoV-2 (PCR) NEGATIVE (Negative) Administered Medications Atorvastatin Calcium (Atorvastatin 40 Mg Tab) 80 mg PO HS AMNA Stop: 05/02/21 20:59 Last Admin: 04/02/21 21:39 Dose: 80 mg Documented by: [id number] Gabapentin (Gabapentin 100 Mg Cap) 200 mg PO BID [facility] Stop: 05/02/21 20:59 Last Admin: 04/02/21 21:39 Dose: 200 mg Documented by: [id number] Lactated Ringer's (Lr) 1,000 mls @ 150 mls/hr IV .Q6H40M [facility] Stop: 04/03/21 09:54 Last Admin: 04/02/21 22:43 Dose: 150 mls/hr Documented by: [id number] Thiamine HCl 100 mg/ Syringe 10 mls @ 2 mls/min IV QAM [facility] Stop: 05/02/21 20:59 Last Admin: 04/02/21 21:39 Dose: 2 mls/min Documented by: [id number] Folic Acid 1 mg/ Syringe 10 mls @ 5 mls/min IV QAM [facility] Stop: 05/02/21 20:59 Last Admin: 04/02/21 21:39 Dose: 5 mls/min Documented by: [id number] Ondansetron HCl (Ondansetron Inj 2 Mg/Ml 2 Ml Vial) 4 mg IV Q6H PRN PRN Reason: Nausea Stop: 05/02/21 20:34 Last Admin: 04/02/21 23:08 Dose: 4 mg Documented by: [id number] Propranolol HCl (Propranolol Hcl 20 Mg Tab) 40 mg PO BID [facility] Stop: 05/02/21 20:59 Last Admin: 04/02/21 21:39 Dose: 40 mg Documented by: [id number] Discontinued Medications Fentanyl Citrate (Fentanyl Citrate 100 Mcg/2 Ml Vial) 50 mcg IV Q15M PRN PRN Reason: Pain Stop: 04/16/21 16:36 Last Admin: 04/02/21 19:07 Dose: 50 mcg Documented by: [id number] Admin: 04/02/21 17:37 Dose: 50 mcg Documented by: [id number] Admin: 04/02/21 17:01 Dose: 50 mcg Documented by: [id number] Sodium Chloride (Nss 1000ml) 1,000 mls @ 999 mls/hr IV .Q1H1M STA Stop: 04/02/21 17:37 Last Infusion: 04/02/21 18:18 Dose: 0 mls/hr Documented by: [id number] Admin: 04/02/21 17:05 Dose: 999 mls/hr Documented by: [id number] Pantoprazole Sodium 40 mg/ (Syringe) 10 mls @ 5 mls/min IV NOW ONE Stop: 04/02/21 18:42 Last Admin: 04/02/21 19:22 Dose: 5 mls/min Documented by: [id number] Famotidine (Pepcid 20mg Iv Push) 20 mg in 5 mls @ 2.5 mls/min IV NOW STA Stop: 04/02/21 18:42 Last Admin: 04/02/21 19:04 Dose: 2.5 mls/min Documented by: [id number] Lactated Ringer's (Lr) 1,000 mls @ 999 mls/hr IV .Q1H1M ONE Stop: 04/02/21 21:35 Last Infusion: 04/02/21 22:52 Dose: 0 mls/hr Documented by: [id number] Admin: 04/02/21 21:10 Dose: 999 mls/hr Documented by: [id number] Acetaminophen (Ofirmev) 1,000 mg in 100 mls @ 400 mls/hr IV Q8H PRN; Protocol PRN Reason: Pain Stop: 04/05/21 20:59 Last Infusion: 04/02/21 22:05 Dose: 0 mls/hr Documented by: [id number] Admin: 04/02/21 21:36 Dose: 400 mls/hr Documented by: [id number] Ioversol (Optiray 320 100ml) 94 ml IV ONCE ONE Stop: 04/02/21 17:24 Last Admin: 04/02/21 17:24 Dose: 94 ml Documented by: [id number] Ondansetron HCl (Ondansetron Inj 2 Mg/Ml 2 Ml Vial) 4 mg IV NOW STA Stop: 04/02/21 16:38 Last Admin: 04/02/21 17:01 Dose: 4 mg Documented by: [id number] Imaging Data Radiologist's Impression: Abdomen/Pelvis CT 04/02/21 16:37 CT abd pelvis IV con only CLINICAL HISTORY: upper pain COMPARISON STUDY: December 05, 2020 TECHNIQUE: A dose lowering technique was utilized adhering to the principles of ALARA. CT DOSE: 419.99 mGy.cm FINDINGS: Lower chest: Limited evaluation of lung bases shows no evidence of acute abn ormalities.. Liver: Cirrhotic morphology of the liver without evidence of focal lesions or intrahepatic biliary dilatation. Mild ascites is seen. Gallbladder: Is fluid-filled without radiopaque gallstones. Pericholecystic edema is difficult to evaluate due to mild ascites. Spleen: Is prominent without focal focal lesions. Pancreas: Is mildly atrophic. Cystic lesion within pancreatic body and tail are again seen, largest is measuring approximately 3.5 cm in size. Above-mentioned lesions are grossly unchanged since recent prior study however comparison is difficult with prior nonenhanced exam. There is prominent fat stranding which surrounds pancreas. Small calculus within pancreatic head is again seen. Adrenal glands: Unremarkable. Kidneys: There is symmetric renal cortical enhancement. The kidneys are normal in size without hydronephrosis. Pelvic viscera: Urinary bladder is partially decompressed with diffuse thickening of its wall which was also seen during prior study. Prostate gland is not visualized, probably surgically absent. Bowel: Bowel loops are nondilated. Fat stranding is seen surrounding second and third portion of duodenum. Appendix is nondilated. Mild hiatal hernia. Wall of distal esophagus is slightly thickened. Peritoneum: There is no free intraperitoneal gas is seen. Mild ascites is worsening since prior. Vasculature: Tortuous abdominal aorta is slightly ectatic measuring up to 2.7 cm in diameter. Scattered calcifications of aortic wall are seen. Prominent paraesophageal and gastric varices are seen. Adenopathy: None. Skeletal structures: Osteopenia and extensive degenerative changes of the spine. Laminectomy changes are seen within L4-L5 level. IMPRESSION: 1. Fat stranding surrounding pancreas and second and third portion of the duodenum might represent acute pancreatitis. Inflammatory changes surrounding duodenum might be reactive. Please correlate above-mentioned findings with clinical and laboratory presentation of pancreatitis. Multiple cystic pancreatic lesions might represent pancreatic neoplasm. Attention on follow-up imaging. 2. Liver cirrhosis, interval worsening of mild ascites. Multiple varices. Prominent spleen. 3. Mild hiatal hernia. Wall thickening of distal esophagus. 4. Prostate gland is surgically absent. 5. The rest of findings as detailed above. ACT 112: Positive. There are findings on this exam that require communication between the performing entity and the patient following Patient Test Result Information Act ([place] Act 112) guidelines. The above report was generated using voice recognition software. It may contain grammatical, syntax or spelling errors. Electronically signed by: Aline Pinto DO 04/02/2021 6:37 PM Chest X-Ray 04/02/21 16:37 XR chest 1V portable CLINICAL HISTORY: CP COMPARISON STUDY: December 05, 2020 FINDINGS: No pneumothorax. No pleural effusion. No large infiltrates or consolidative lesions are seen. Cardiac silhouette is within normal limits in size. Interval widening of the right paratracheal stripe could be due to rotation or soft tissue prominence. Pulmonary vasculature is indistinct.. Aorta is calcified. Osseous structures: Degenerative changes of the spine. IMPRESSION: 1. No large infiltrates or consolidative lesions. 2. Interval widening of the right paratracheal stripe which could be due to rotation or represent enlargement of the soft tissue within this region. Further evaluation with CT of the chest preferably on nonemergency basis is recommended. ACT 112: Positive. There are findings on this exam that require communication between the performing entity and the patient following Patient Test Result Information Act ([place] Act 112) guidelines. The above report was generated using voice recognition software. It may contain grammatical, syntax or spelling errors. Electronically signed by: Aline Pinto DO 04/02/2021 5:08 PM Discharge Plan Visit Data Chief Complaint: Abdominal Pain Stated Complaint: PANCREAS PAIN ED Provider: Bird Wade Discharge Problem: Acute pancreatitis, Abdominal ascites, Chest pain, Alcohol abuse Patient Disposition: Admitted As Inpatient Condition: Good Discharge Instructions Interventions: ED Discharge Assessment Last Done: 04/02/21 20:13 Discharge Problem: Acute pancreatitis Qualifiers: Pancreatitis type: alcohol induced Acute pancreatitis complication: unspecified Qualified Code(s): K85.20 - Alcohol induced acute pancreatitis without necrosis or infection Abdominal ascites Qualifiers: Ascites type: due to alcoholic cirrhosis Qualified Code(s): K70.31 - Alcoholic cirrhosis of liver with ascites Chest pain Qualifiers: Chest pain type: unspecified Qualified Code(s): R07.9 - Chest pain, unspecified
[2021-04-02] MEDS: fentaNYL citrate 100 MCG/2 ML VIAL IV PRN ×3 (17:01→19:07)
--- NOTE | 2021-04-02 17:09 | XRay Report ---
XR chest 1V portable CLINICAL HISTORY: CP COMPARISON STUDY: December 05, 2020 FINDINGS: No pneumothorax. No pleural effusion. No large infiltrates or consolidative lesions are seen. Cardiac silhouette is within normal limits in size. Interval widening of the right paratracheal strip e could be due to rotation or soft tissue prominence. Pulmonary vasculature is indistinct.. Aorta is calcified. Osseous structures: Degenerative changes of the spine. IMPRESSION: 1. No large infiltrates or consolidative lesions. 2. Interval widening of the right paratracheal stripe which could be due to rotation or represent en largement of the soft tissue within this region. Further evaluation with CT of the chest preferably o n nonemergency basis is recommended. ACT 112: Positive. There are findings on this exam that require communication between the performing entity and the patient following Patient Test Result Information Act ([place] Act 112) guidelines. The above report was generated using voice recognition software. It may contain grammatical, syntax o r spelling errors. Electronically signed by: Aline Pinto DO 04/02/2021 5:08 PM
[2021-04-02] MEDS ORDERED: OPTIRAY 320 100ml IV ONE (17:23)
[2021-04-02 17:43] LABS: Appearance Urine Clear (Clear); Bilirubin Urine Negative (Negative); Blood Urine Negative (Negative); Color Urine Yellow; Glucose Urine UA Negative (Negative); Ketones Urine Negative (Negative); Leukocyte Esterase Urine Negative (Negative); Nitrite Urine Negative (Negative); Protein Urine Negative (Negative); Specific Gravity Urine 1.011 (1.000-1.030); Urobilinogen Urine Negative (Negative)
--- NOTE | 2021-04-02 18:38 | CT Scan Report ---
CT abd pelvis IV con only CLINICAL HISTORY: upper pain COMPARISON STUDY: December 05, 2020 TECHNIQUE: A dose lowering technique was utilized adhering to the principles of ALARA. CT DOSE: 419.99 mGy.cm FINDINGS: Lower chest: Limited evaluation of lung bases shows no evidence of acute abnormalities.. Liver: Cirrhotic morphology of the liver without evidence of focal lesions or intrahepatic biliary di latation. Mild ascites is seen. Gallbladder: Is fluid-filled without radiopaque gallstones. Pericholecystic edema is difficult to sarah luate due to mild ascites. Spleen: Is prominent without focal focal lesions. Pancreas: Is mildly atrophic. Cystic lesion within pancreatic body and tail are again seen, largest i s measuring approximately 3.5 cm in size. Above-mentioned lesions are grossly unchanged since recent prior study however comparison is difficult with prior nonenhanced exam. There is prominent fat stran ding which surrounds pancreas. Small calculus within pancreatic head is again seen. Adrenal glands: Unremarkable. Kidneys: There is symmetric renal cortical enhancement. The kidneys are normal in size without hydron ephrosis. Pelvic viscera: Urinary bladder is partially decompressed with diffuse thickening of its wall which w as also seen during prior study. Prostate gland is not visualized, probably surgically absent. Bowel: Bowel loops are nondilated. Fat stranding is seen surrounding second and third portion of duod enum. Appendix is nondilated. Mild hiatal hernia. Wall of distal esophagus is slightly thickened. Peritoneum: There is no free intraperitoneal gas is seen. Mild ascites is worsening since prior. Vasculature: Tortuous abdominal aorta is slightly ectatic measuring up to 2.7 cm in diameter. Scatter ed calcifications of aortic wall are seen. Prominent paraesophageal and gastric varices are seen. Adenopathy: None. Skeletal structures: Osteopenia and extensive degenerative changes of the spine. Laminectomy changes are seen within L4-L5 level. IMPRESSION: 1. Fat stranding surrounding pancreas and second and third portion of the duodenum might represent a cute pancreatitis. Inflammatory changes surrounding duodenum might be reactive. Please correlate abov e-mentioned findings with clinical and laboratory presentation of pancreatitis. Multiple cystic pancr eatic lesions might represent pancreatic neoplasm. Attention on follow-up imaging. 2. Liver cirrhosis, interval worsening of mild ascites. Multiple varices. Prominent spleen. 3. Mild hiatal hernia. Wall thickening of distal esophagus. 4. Prostate gland is surgically absent. 5. The rest of findings as detailed above. ACT 112: Positive. There are findings on this exam that require communication between the performing entity and the patient following Patient Test Result Information Act ([place] Act 112) guidelines. The above report was generated using voice recognition software. It may contain grammatical, syntax o r spelling errors. Electronically signed by: Aline Pinto DO 04/02/2021 6:37 PM
[2021-04-02] MEDS ORDERED: PANTOprazole 40 MG in SYRINGE 0 ML IV ONE (18:41)
[2021-04-02] MEDS ORDERED: FAMOTIDINE 20MG IV PUSH 20 MG/5 ML SYR IV STA (18:41)
[2021-04-02] MEDS ORDERED: LORazepam 1 MG/2 ML VIAL IV PRN (20:35)
[2021-04-02] MEDS ORDERED: LORazepam 3 MG/6 ML VIAL IV PRN (20:35)
[2021-04-02] MEDS ORDERED: LORazepam 2 MG/4 ML VIAL IV PRN (20:35)
[2021-04-02] MEDS ORDERED: LACTATED RINGER'S 1,000 ML IV ONE (20:35)
[2021-04-02] MEDS ORDERED: ACETAMINOPHEN 1000 MG/100 ML IV IV PRN (20:35)
[2021-04-02] MEDS ORDERED: ATIVAN IV ALCOHOL WITHDRAWL IV PRN (20:35)
[2021-04-02] MEDS ORDERED: ACETAMINOPHEN 1,000 MG/100 ML VIAL IV PRN (21:00)
[2021-04-02] MEDS: PROPRANOLOL HCL 20 MG TAB PO SCH (21:39)
[2021-04-02] MEDS: ATORVASTATIN 40 MG TAB PO SCH (21:39)
[2021-04-02] MEDS: THIAMINE HCL 100 MG in SYRINGE 9 ML IV SCH (21:39)
[2021-04-02] MEDS: GABAPENTIN 100 MG CAP PO SCH (21:39)
[2021-04-02] MEDS: FOLIC ACID 1 MG in SYRINGE 9.8 ML IV SCH (21:39)
--- NOTE | 2021-04-02 21:40 | History & Physical Report ---
Date of Service April 02, 2021 Assessment & Plan (1) Pancreatitis, acute: Mr. Huggins is a 80 yo gentleman with a PMHx of alcoholic liver cirrhosis with acute onset epigastric pain. - Lipase elevated to 3649 - fat stranding noted around pancreas on CT scan - as for etiology: suspect due to alcohol given history of chronic use. Although there was a stone noted in the body of the pancreas, the ALT is not elevated, making an gallstone obstruction of the pancreatic duct unlikley. Consideration could be given for advanced imaging (eg ERCP, but will hold off for now). Ca level normal. will check fasting lipid panel for TG. 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 Per review of home medication list, patient does not appear to be on an oral supplement. Consider restarting at discharge. 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 Nava - continue home dose propranolol DVT ppx: Lovenox SQ Diet: NPO, advance as tolerated Dispo: Med/Surg Code: Full - of note patient does not have a living will. I did recommend he speak with his PCP about this after this hospitalization Admission and Anticipated Discharge Date Admission Date: April 02, 2021 History of Present Illness Primary Care Provider: IRISH Viveros Mr. 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 It began after dinner last evening and has progressive since onset. It is worse with ambulation. There was associated nausea but no vomiting. No change in bowel movements/no melena. No fevers. He says this discomfort feels very similar to his previous episode of pancreatitis. Sx: He is a non-smoker. He drinks 3-4 beers per day. He denies ever going through alcohol withdrawal in the past. His last drink was at 8:30 pm on Wednesday night, 04/01/21. In the ED, he was febrile with normal HR. His WBC was normal, Hgb mildly low at 11.0, MCV at 73. Platelets normal. Na 133, electrolytes otherwise normal. Kidney function normal. ALT/AST not elevated. Alk phos elevated to 209.T-bili not elevated. Lipase elevated to 3649. Trop undetectable. UA benign. Covid 19 neg. EKG showing NSR without ectopy. CXR showing no vascular congestion or consolidation; interval widening of paratracheal stripe (CT follow up recommended). CT of abdomen and pelvis showing fat stranding around pancreas and 2nd and 3rd portion of duodenum; cystic lesions of pancreatic body and a small calculus in the pancreatic head. He was given 1 liter of NSS, zofran, 20mg famotidine, 40 mg protonix and a 50mcg IV fentanyl. Allergies Allergy/AdvReac Type Severity Reaction Status Date / Time No Known Allergies Allergy Verified 04/02/21 16:46 Home Medications Medication Instructions Recorded Confirmed Type atorvastatin 80 mg PO HS 06/13/19 04/02/21 History venlafaxine 225 mg PO QAM 11/21/19 04/02/21 History metformin 1,000 mg tablet 1,000 mg PO BID #180 tab 05/30/20 04/02/21 Rx alogliptin 25 mg tablet 25 mg PO QAM 08/02/20 04/02/21 History acetaminophen 1,000 mg PO BID PRN 12/05/20 04/02/21 History methocarbamol 500 mg PO TID PRN 12/05/20 04/02/21 History gabapentin 200 mg PO BID #120 cap 12/07/20 04/02/21 Rx pantoprazole 40 mg PO BID #0 tab 12/07/20 04/02/21 Rx amlodipine 5 mg tablet 5 mg PO DAILY 12/10/20 04/02/21 History propranolol 40 mg tablet 40 mg PO BID 12/10/20 04/02/21 History oxycodone 5 mg capsule 5 mg PO BID PRN 03/04/21 04/02/21 History diazepam 5 mg tablet 5 mg PO ONCE PRN #2 tab 03/12/21 04/02/21 Rx meclizine 25 mg tablet 25 mg PO BID PRN #20 tab 03/13/21 04/02/21 Rx ondansetron 4 mg disintegrating 4 mg PO Q6H PRN #30 tab 03/26/21 04/02/21 Rx tablet Past Med/Surg History Medical History Alcohol dependence Anemia chronic, baseline hgb 10-11 range per chart review Anxiety Bilateral primary osteoarthritis of knee Carpal tunnel syndrome Cervical spondylosis without myelopathy Depression Diabetes mellitus, type 2 NIDDM Esophageal varices Grade 1 small varices in the lower third of the esophagus per 09/30/20 EGD, undergoes routine surveillance EGDs Fatty liver GERD (gastroesophageal reflux disease) controlled Hiatal hernia History of gastric polyp History of prostate cancer s/p prostatectomy (1998), no chemo/no radiation Hypercholesterolemia Hypertension 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, stable Lumbar stenosis Restless legs syndrome Thrombocytopenia hx cirrhosis, chronic mild thrombocytopenia Surgical History History of biopsy pancreatic mass biopsy on 07/01/2020 - benign History of colonoscopy (06/2018) History of cystoscopy d/t incontinence History of esophagogastroduodenoscopy (EGD) (11/2019) 11/30/19: MAC sedation at [facility] History of laminectomy X3 History of prostatectomy History of right inguinal hernia repair History of tooth extraction Hx of cervical spine surgery (12/2019) C3-C6 laminectomy, C3-T1 PCF Hx of inguinal hernia surgery (09/14/19) Open Right Inguinal Hernia Repair with Mesh: 09/14/19: LMA#5 at [facility] S/P total knee arthroplasty 11/12/20 Dr. Khoa Fink- TKA Family History Sister Family history of diabetes mellitus Breast cancer Mother Colorectal cancer Brother Prostate cancer Colorectal cancer Father Myocardial infarction Son Thyroid disease Mother Family history of diabetes mellitus Sister Family history of diabetes mellitus Sister Family history of diabetes mellitus Other No family history of adverse response to anesthesia Denies family history of Ovarian cancer Social History Smoking Status: Never smoker Age Quit Using Tobacco: 42; Second Hand Exposure: No; Do You Dip or Chew Tobacco: No; Hx Alcohol Use: Yes Alcohol type: beer Alcohol Intake Frequency: 4 or More x per/Week Alcohol Intake Frequency Comment: at night 4-5 beers a night Hx Substance Use: No Preferred Language: Tongan Communication Ability: Effective Visual Impairment: Limited Hearing Ability: Normal [employer] Team Leader Required: No Beliefs That Will Affect Care: None marital status: Current Living Situation: Spouse current occupational status: retired Other Information That Helps Us Care for You: No Feels Safe at Home: Yes Safety Concerns: Feels Safe At This Time Childhood Exposure to Second-Hand Smoke: No Diet Comment: regular caffeine: No during the past year weight has: decreased > 10 lbs Dental Care, Regularly: No Physical Activity Frequency: Daily Physical Activity Frequency Comment: limited by physical condition Seatbelt Use: always Sunscreen Use: No Assistive Devices: Glasses and Walker Review of Systems Gastrointestinal: + abdominal pain and + nausea; no vomiting Physical Exam Constitutional: WD/WN, vitals as above cooperative; no acute distress Eyes: + anicteric sclerae ENMT: external ear and nose normal, oropharynx normal Neck: normal visual inspection and trachea midline Respiratory: normal respiratory effort, lungs clear to auscultation no cough Cardiovascular: Rate/Rhythm: regular rate and regular rhythm Heart Sounds: normal S1, normal S2 and + murmur (systolic ejection ) Extremities: no pedal edema Gastrointestinal (Abdomen): Inspection/Auscultation: + abdomen distended and normal bowel sounds Percussion/Palpation: + abdomen tender (epigastrium ) and + guarding (RUQ) Skin: no rashes, warm and dry Neurologic: moves all extremities Psychiatric: A+Ox3, euthymic affect Results & Data Results & Data ([facility]) Vital Signs (Past 12 Hours) Vital Signs Temp Pulse Pulse Resp BP BP Pulse Ox 04/02/21 20:20 36.6 C 90 18 171/88 H 97 04/02/21 20:01 90 18 98 04/02/21 20:00 90 22 164/95 H 98 04/02/21 19:31 89 20 98 04/02/21 19:30 92 H 18 148/94 H 95 04/02/21 19:01 90 19 97 04/02/21 19:00 88 19 163/99 H 97 04/02/21 18:31 89 20 97 04/02/21 18:30 90 20 160/92 H 97 04/02/21 18:01 90 18 97 04/02/21 18:00 86 17 165/91 H 99 04/02/21 17:35 89 23 99 04/02/21 17:34 86 16 145/84 H 99 04/02/21 17:30 87 20 04/02/21 17:01 85 19 98 04/02/21 17:00 82 19 165/97 H 99 04/02/21 16:56 78 24 99 04/02/21 16:46 90 23 167/100 H 98 04/02/21 15:03 36.5 C 78 18 162/94 H 99 Supervising Physician Co-Signing Physician Notes Attending addendum: I have physically seen this patient, have supervised the medical residents activities, and agree with the H&P unless as otherwise noted. Assessment and Plan: Acute alcoholic pancreatitis- Lipase upon admission 3649 CT notes fat stranding around the pancreas Follow serial CBC with differential, chemistry profile and lipase levels N.p.o. 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
[2021-04-02 21:48] LABS: Folate (Folic Acid) > 20.00 ng/ml (>5.38); Vitamin B12 407 pg/ml (193-986)
[2021-04-02] MEDS ORDERED: GLUCAGON FOR INJ 1 MG VIAL SQ PRN (21:56)
[2021-04-02] MEDS ORDERED: CARBOHYDRATES FOR HYPOGLYCEMIA PO PRN (21:56)
[2021-04-02] MEDS ORDERED: GLUCOSE 10 TABS/TUBE PO PRN (21:56)
[2021-04-02] MEDS ORDERED: DEXTROSE 50% 50 ML SYRINGE IV PRN (21:56)
[2021-04-02] MEDS ORDERED: GLUCOSE 40% GEL 15 GM TUBE PO PRN (21:56)
[2021-04-02] MEDS ORDERED: KETOROLAC TROMETHAMINE 15 MG/ML VIAL IV PRN (22:07)
[2021-04-02] MEDS: LACTATED RINGER'S 1,000 ML IV SCH (22:43)
[2021-04-02] MEDS: ONDANSETRON INJ 2 MG/ML 2 ML VIAL IV PRN (23:08)
[2021-04-03] MEDS: LACTATED RINGER'S 1,000 ML IV SCH ×3 (05:39→20:18)
[2021-04-03 06:13] LABS: Basophils # (auto) 0.01 K/uL (0-0.2); Basophils % (auto) 0.2 %; Eosinophils # (auto) 0.01 K/uL (0-0.5); Eosinophils % (auto) 0.2 %; Hematocrit (blood only) 33.6 % (42-52); Hemoglobin 10.3 g/dL (14.0-18.0); Lymphocytes # (auto) 1.14 K/uL (1.2-3.4); Lymphocytes % (auto) 22.3 %; Mean Corpuscular Hemoglobin 22.6 pg (25-34); Mean Corpuscular Hgb Conc 30.7 g/dL (32-36); Mean Corpuscular Volume 73.7 fL (80-100); Mean Platelet Volume 9.1 fL (7.4-10.4); Monocytes # (auto) 0.59 K/uL (0.11-0.59); Monocytes % (auto) 11.5 %; Neutrophils # (auto) 3.37 K/uL (1.4-6.5); Neutrophils % (auto) 65.8 %; Platelet Count 134 K/uL (130-400); RDW Coefficient of Variation 18.4 % (11.5-14.5); Red Blood Count 4.56 M/uL (4.7-6.1); White Blood Count 5.12 K/uL (4.8-10.8)
[2021-04-03 06:48] LABS: Albumin Globulin Ratio 0.8 (0.9-2); Albumin Level 3.2 gm/dl (3.4-5.0); BUN Creatinine Ratio 12.5 (10-20); Bilirubin,Total 0.8 mg/dl (0.2-1); Calcium 8.9 mg/dl (8.5-10.1); Creatinine Clr Calc Pharmacy 109.1 ml/min; Est GFR (African American) 116.6 ml/min; Est GFR (Non-African American) 100.6 ml/min; Potassium 3.2 mmol/L (3.5-5.1); Total Protein 7.2 gm/dl (6.4-8.2)
[2021-04-03 06:56] LABS: Giant Platelets 1+; Hypochromasia Present
[2021-04-03] MEDS ORDERED: POTASSIUM CHLORIDE CRTAB 20 MEQ TABCR PO STA (08:20)
--- NOTE | 2021-04-03 08:41 | CT Scan Report ---
CT SCAN OF THE CHEST WITHOUT IV CONTRAST CLINICAL HISTORY: Atypical chest pain. Abnormal chest x-ray. COMPARISON STUDY: Chest x-ray dated 04/02/2021. Chest CT dated 04/14/2007. TECHNIQUE: CT scan of the thorax was performed from the thoracic inlet to the upper abdomen. Images are reviewed in the axial, sagittal, and coronal planes. IV contrast was not administered for this ex amination as per the referring clinician. A dose lowering technique was utilized adhering to the salbador Roy. CT DOSE: 324.27 mGy.cm FINDINGS: Thyroid: Imaged portions of the thyroid gland are normal in size and attenuation. Thoracic aorta: There is atherosclerotic calcification of the thoracic aorta, which is normal in yogesh norma and demonstrates standard 3-vessel arch anatomy. Heart: The heart is enlarged and without pericardial effusion. Lungs and pleural spaces: There is no airspace consolidation or pleural effusion. The trachea and lisa tral airways are clear. Mild scarring/atelectasis is noted at the lung bases. Mediastinum: Subcentimeter mediastinal lymph nodes are not pathologically enlarged by size criteria. Bernarda: Not well assessed without IV contrast. Axillae: There is no axillary lymphadenopathy. Upper abdomen: There is a moderate hiatal hernia. Esophageal varices are noted. The liver is cirrhoti c in morphology and heterogeneous in attenuation. There is nodularity of the hepatic surface contour with enlargement of the left lobe and caudate. The spleen appears enlarged. There is a small volume o f perihepatic and perisplenic ascites. Surgical clips are noted in the stomach. Cystic foci in the pa ncreatic tail measure up to 2 cm. Skeletal structures: The skeletal structures are heterogeneously osteopenic. Postoperative change is seen at the cervicothoracic junction. Degenerative change is seen throughout the thoracic spine and i n the shoulders. No lytic or blastic bony lesions are seen. There are healed right-sided rib fracture s. Soft tissues: Gynecomastia is noted. IMPRESSION: 1. There is no airspace consolidation or pleural effusion. 2. There is no abnormality as questioned by chest x-ray. The apparent widening of the paratracheal st ripe is related to normal vascular structures. 3. Mild cardiomegaly. 4. Cirrhotic liver morphology. 5. Abdominal ascites, splenomegaly, and esophageal varices indicate portal hypertension. 6. Cystic foci in/adjacent to the pancreatic tail are nonspecific and may represent small pseudocysts versus mucinous cystic neoplasm or IPMNs. This was better assessed on today's abdominal CT. 7. Additional findings as above. ACT 112: Negative or not required by law. Electronically signed by: Tony Morocho M.D. 04/03/2021 8:40 AM
[2021-04-03] MEDS: MoRPHine SULFATE 2 MG/ML CARP IV PRN ×3 (09:22→20:17)
[2021-04-03] MEDS: ONDANSETRON INJ 2 MG/ML 2 ML VIAL IV PRN ×2 (09:23→17:02)
[2021-04-03] MEDS: INSULIN ASPART 100 UNITS/ML 3 ML PEN SC SCH ×4 (09:24→21:39)
[2021-04-03] MEDS: amLODIPine BESYLATE 5 MG TAB PO SCH (09:25)
[2021-04-03] MEDS: ENOXAPARIN INJ 40 MG/0.4 ML SYR SQ SCH (09:25)
[2021-04-03] MEDS: VENLAFAXINE HCL XR 75 MG CAPXR PO SCH (09:26)
[2021-04-03] MEDS: PROPRANOLOL HCL 20 MG TAB PO SCH ×2 (09:26→20:19)
[2021-04-03] MEDS: GABAPENTIN 100 MG CAP PO SCH ×2 (09:27→20:20)
[2021-04-03] MEDS: FOLIC ACID 1 MG in SYRINGE 9.8 ML IV SCH (09:27)
[2021-04-03] MEDS: THIAMINE HCL 100 MG in SYRINGE 9 ML IV SCH (09:27)
--- NOTE | 2021-04-03 10:08 | Electrocardiogram Report ---
Test Reason : Blood Pressure : / mmHG Vent. Rate : 070 BPM Atrial Rate : 070 BPM P-R Int : 160 ms QRS Dur : 082 ms QT Int : 432 ms P-R-T Axes : 014 -26 015 degrees QTc Int : 466 ms Normal sinus rhythm Nonspecific ST abnormality Abnormal ECG When compared with ECG of 05-DEC-2020 16:19, T wave inversion no longer evident in Anterior leads Confirmed by Ernesto Montes De Oca ([id number]) on 04/03/2021 10:08:18 AM Referred By: REFERRED SELF Confirmed By:Ernesto Montes De Oca
--- NOTE | 2021-04-03 10:17 | Gastrointestinal Consultation ---
Date of Consultation April 03, 2021 Assessment & Plan (1) Acute pancreatitis: (2) Alcohol abuse: (3) Liver cirrhosis, alcoholic: Patient is a 80 y.o. male with ETOH associated cirrhosis and hx of pancreatitis admitted with epigastric pain, n/v, elevated lipase and abnormal CT imaging with findings of pancreatic atrophy, calcification and fat stranding consistent with acute on chronic pancreatitis. 1. NPO for now. Can have dietary advancement as tolerated. 2. Continue supportive care with IV fluids, antiemetics and analgesics as prescribed. 3. Patient may benefit from addition of Creon once able to take PO. 4. Patient was again extensively counseled on the risks of continued ETOH use, including recurring abdominal pain/vomiting, liver failure, malignancy and . 5. Ongoing outpatient follow up and MRI panc. protocol as planned in June. Thank you for allowing us to participate in the care of this patient. If you have any questions or concerns, please do not hesitate to contact us as [phone] or [phone]. Supervising Physician Co-Signing Physician Notes I personally evaluated the patient and agree with the findings as documented by IRISH Andrade Exam: abd: soft, mild upper abdominal tenderness, nd History of Present Illness Reason for Consultation: Acute pancreatitis Requesting Physician: Dr. Jerez Attending Physician: David Ricketts DO History of Present Illness Gary Huggins is a very pleasant 80 y.o. male known to our practice in regard to an established diagnosis of ETOH cirrhosis and acute pancreatitis which has required hospitalization in the past. He also has been followed for pancreatic cystic lesions which have been biopsied and are under MRI surveillance. He is due to have repeat MRI imaging in June of 2021. The patient has continued daily ETOH use up 6 beers daily but recently more per his report. Has declined rehab services. Mr. Huggins presented to the ER yesterday with a sudden onset of severe epigastric pain with associated nausea and vomiting. Reports the pain was similar to prior episodes of pancreatitis. On arrival, he was found to have an elevated lipase of 3649 which is trending down and was noted to be 2756 this morning. He has a chronic anemia. Liver panel as follows: TB 0.8, AST 30, ALT 32, and ALP 169. CT imaging with fat stranding at the level of the duodenum felt reflective of acute pancreatitis. He also has some calcification and pancreatic atrophy. Stable pancreatic lesions. Currently, he states he is improved clinically. Pain in the epigastric region is rated 2/10 after being administered 2 mg of IV morphine. Nausea and vomiting have resolved. He remains NPO and is receiving IV fluid resuscitation. Denies any jaundice, pruritus, dark urine, acholic stools, melena, hematochezia or fatigue. Allergies Allergy/AdvReac Type Severity Reaction Status Date / Time No Known Allergies Allergy Verified 04/02/21 16:46 Home Medications Medication Instructions Recorded Confirmed Type atorvastatin 80 mg PO HS 06/13/19 04/02/21 History venlafaxine 225 mg PO QAM 11/21/19 04/02/21 History metformin 1,000 mg tablet 1,000 mg PO BID #180 tab 05/30/20 04/02/21 Rx alogliptin 25 mg tablet 25 mg PO QAM 08/02/20 04/02/21 History acetaminophen 1,000 mg PO BID PRN 12/05/20 04/02/21 History methocarbamol 500 mg PO TID PRN 12/05/20 04/02/21 History gabapentin 200 mg PO BID #120 cap 12/07/20 04/02/21 Rx pantoprazole 40 mg PO BID #0 tab 12/07/20 04/02/21 Rx amlodipine 5 mg tablet 5 mg PO DAILY 12/10/20 04/02/21 History propranolol 40 mg tablet 40 mg PO BID 12/10/20 04/02/21 History oxycodone 5 mg capsule 5 mg PO BID PRN 03/04/21 04/02/21 History diazepam 5 mg tablet 5 mg PO ONCE PRN #2 tab 03/12/21 04/02/21 Rx meclizine 25 mg tablet 25 mg PO BID PRN #20 tab 03/13/21 04/02/21 Rx ondansetron 4 mg disintegrating 4 mg PO Q6H PRN #30 tab 03/26/21 04/02/21 Rx tablet Patient History Medical History Alcohol dependence Anemia chronic, baseline hgb 10-11 range per chart review Anxiety Bilateral primary osteoarthritis of knee Carpal tunnel syndrome Cervical spondylosis without myelopathy Depression Diabetes mellitus, type 2 NIDDM Esophageal varices Grade 1 small varices in the lower third of the esophagus per 12/21/20 EGD, undergoes routine surveillance EGDs Fatty liver GERD (gastroesophageal reflux disease) controlled Hiatal hernia History of gastric polyp History of prostate cancer s/p prostatectomy (1998), no chemo/no radiation Hypercholesterolemia Hypertension 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, alcoholic hx small esophageal varices (09/2020) under surveillance, no banding indicated on most recent EGD, follows with [facility], stable Lumbar stenosis Restless legs syndrome Thrombocytopenia hx cirrhosis, chronic mild thrombocytopenia Surgical History History of biopsy pancreatic mass biopsy on 07/01/2020 - benign History of colonoscopy (06/2018) History of cystoscopy d/t incontinence History of esophagogastroduodenoscopy (EGD) (11/2019) 11/30/19: MAC sedation at [facility] History of laminectomy X3 History of prostatectomy History of right inguinal hernia repair History of tooth extraction Hx of cervical spine surgery (12/2019) C3-C6 laminectomy, C3-T1 PCF Hx of inguinal hernia surgery (09/14/19) Open Right Inguinal Hernia Repair with Mesh: 09/14/19: LMA#5 at [facility] S/P total knee arthroplasty 11/12/20 Dr. Khoa Vasquez [place] Family History Sister Family history of diabetes mellitus Breast cancer Mother Colorectal cancer Brother Prostate cancer Colorectal cancer Father Myocardial infarction Son Thyroid disease Mother Family history of diabetes mellitus Sister Family history of diabetes mellitus Sister Family history of diabetes mellitus Other No family history of adverse response to anesthesia Denies family history of Ovarian cancer Social History Smoking Status: Never smoker Age Quit Using Tobacco: 42; Second Hand Exposure: No; Do You Dip or Chew Tobacco: No; Hx Alcohol Use: Yes Alcohol type: beer Alcohol Intake Frequency: 4 or More x per/Week Alcohol Intake Frequency Comment: at night 4-5 beers a night Hx Substance Use: No Preferred Language: Latvian Communication Ability: Effective Visual Impairment: Limited Hearing Ability: Normal Shank Cutter Required: No Beliefs That Will Affect Care: None marital status: Current Living Situation: Spouse current occupational status: retired Other Information That Helps Us Care for You: No Feels Safe at Home: Yes Safety Concerns: Feels Safe At This Time Childhood Exposure to Second-Hand Smoke: No Diet Comment: regular caffeine: No during the past year weight has: decreased > 10 lbs Dental Care, Regularly: No Physical Activity Frequency: Daily Physical Activity Frequency Comment: limited by physical condition Seatbelt Use: always Sunscreen Use: No Assistive Devices: Glasses and Walker Review of Systems Review of Systems: All systems reviewed & are unremarkable except as noted in HPI & below Physical Exam Constitutional: WD/WN, vitals as above well developed and well nourished Neck: normal visual inspection Respiratory: normal respiratory effort, lungs clear to auscultation Cardiovascular: Rate/Rhythm: regular rate and regular rhythm Heart Sounds: + murmur Gastrointestinal (Abdomen): Inspection/Auscultation: + abdomen distended and normal bowel sounds Percussion/Palpation: + abdomen tender (epigastric) and abdomen soft Psychiatric: A+Ox3, euthymic affect Results & Data ([facility]) Vital Signs (Past 12 Hours) Vital Signs Temp Pulse Resp BP BP Pulse Ox 04/03/21 07:16 36.5 C 79 18 165/83 H 96 04/03/21 03:41 36.7 C 67 16 158/90 H 97 04/02/21 23:52 36.4 C L 72 18 155/83 H 97 Laboratory Results Abnormal lab results 04/02/21 04/02/21 04/02/21 Range/Units 15:51 15:51 17:15 RBC (4.7-6.1) M/uL Hgb 11.0 L (14.0-18.0) g/dL Hct 36.2 L (42-52) % MCV 73.7 L (80-100) fL MCH 22.4 L (25-34) pg MCHC 30.4 L (32-36) g/dL RDW Std Deviation 48.8 H (36.4-46.3) fL RDW Coeff of Elliot 18.3 H (11.5-14.5) % Lymph # (Auto) 1.19 L (1.2-3.4) K/uL Hubbard # (Auto) 0.72 H (0.11-0.59) K/uL Sodium 133 L (136-145) mmol/L Potassium (3.5-5.1) mmol/L Chloride 96 L (98-107) mmol/L Creatinine 0.59 L (0.6-1.4) mg/dl Glucose 149 H (70-99) mg/dl POC Glucose (70-99) mg/dl Alkaline Phosphatase 209 H (45-117) U/L Total Protein 8.3 H (6.4-8.2) gm/dl Albumin (3.4-5.0) gm/dl Globulin 4.4 H (2.5-4.0) gm/dl Albumin/Globulin Ratio (0.9-2) Lipase 3649 H (73-393) U/L Urine pH 8.0 H (4.5-7.5) 04/02/21 04/03/21 04/03/21 Range/Units 20:27 00:19 05:52 RBC 4.56 L (4.7-6.1) M/uL Hgb 10.3 L (14.0-18.0) g/dL Hct 33.6 L (42-52) % MCV 73.7 L (80-100) fL MCH 22.6 L (25-34) pg MCHC 30.7 L (32-36) g/dL RDW Std Deviation 49.0 H (36.4-46.3) fL RDW Coeff of Elliot 18.4 H (11.5-14.5) % Lymph # (Auto) 1.14 L (1.2-3.4) K/uL Hubbard # (Auto) (0.11-0.59) K/uL Sodium (136-145) mmol/L Potassium (3.5-5.1) mmol/L Chloride (98-107) mmol/L Creatinine (0.6-1.4) mg/dl Glucose (70-99) mg/dl POC Glucose 133 H 126 H (70-99) mg/dl Alkaline Phosphatase (45-117) U/L Total Protein (6.4-8.2) gm/dl Albumin (3.4-5.0) gm/dl Globulin (2.5-4.0) gm/dl Albumin/Globulin Ratio (0.9-2) Lipase (73-393) U/L Urine pH (4.5-7.5) 04/03/21 04/03/21 Range/Units 05:52 05:56 RBC (4.7-6.1) M/uL Hgb (14.0-18.0) g/dL Hct (42-52) % MCV (80-100) fL MCH (25-34) pg MCHC (32-36) g/dL RDW Std Deviation (36.4-46.3) fL RDW Coeff of Elliot (11.5-14.5) % Lymph # (Auto) (1.2-3.4) K/uL Hubbard # (Auto) (0.11-0.59) K/uL Sodium (136-145) mmol/L Potassium 3.2 L D (3.5-5.1) mmol/L Chloride (98-107) mmol/L Creatinine 0.54 L (0.6-1.4) mg/dl Glucose 137 H (70-99) mg/dl POC Glucose 139 H (70-99) mg/dl Alkaline Phosphatase 169 H (45-117) U/L Total Protein (6.4-8.2) gm/dl Albumin 3.2 L (3.4-5.0) gm/dl Globulin (2.5-4.0) gm/dl Albumin/Globulin Ratio 0.8 L (0.9-2) Lipase 2756 H (73-393) U/L Urine pH (4.5-7.5) PG Care Time/CCT Total # of Minutes Spent Total Time Spent with Patient: Total time spent is greater than 50% in coordination of care (as documented) at patient's floor/unit and/or counseling patient: Coding Level of Care Code 05143 Initial Inpt Care Lvl 3 Diagnoses Acute pancreatitis K85.20 Acute pancreatitis complication: unspecified Pancreatitis type: alcohol induced Alcohol abuse F10.10 Liver cirrhosis, alcoholic K70.30 Ascites presence: without ascites (1) Liver cirrhosis, alcoholic Ascites presence: without ascites Qualified Code(s): K70.30 - Alcoholic cirrhosis of liver without ascites (2) Acute pancreatitis Acute pancreatitis complication: unspecified Pancreatitis type: alcohol induced Qualified Code(s): K85.20 - Alcohol induced acute pancreatitis without necrosis or infection
--- NOTE | 2021-04-03 17:34 | Medical Student Progress Note ---
Date of Service April 03, 2021 Assessment & Plan (1) Acute pancreatitis: Imaging and labs are consistent with acute pancreatitis, based on history is most likely due to alcohol use. -Continue to give lactated ringers 200/hr. -Continue to give morphine PRN for pain control. -Continue Zofran for nausea. -Advance diet as tolerated. Acute pancreatitis complication: unspecified Pancreatitis type: alcohol induced Qualified Code(s): K85.20 - Alcohol induced acute pancreatitis without necrosis or infection (2) Alcohol abuse: Concern for alcohol withdraw based on everyday alcohol consumption - monitor closely. -Give IV thiamine and folic acid. -Monitor electrolytes. (3) Anemia: Most likely a chronic anemia of alcoholism further diluted by fluid maintenance. -Trend Hgb Admission and Anticipated Discharge Date Admission Date: April 02, 2021 Supervising Attestation I personally examined the patient and verified all samson points of history and exam, discussed case, and agree with decision making with Becky CLIFFORD Still having pain, but definitely feeling better than yesterday. Still having nausea, but notes that it is better than yesterday too. On directed questioning relates a desire to quit drinking. He is not having any racing heart, or tremor, or other withdrawal symptoms. Vitals noted, in general he is awake and alert pleasant no distress. HEENT normocephalic atraumatic mucous membranes are moist. He has no tremor. Abdomen is soft but he does have epigastric tenderness, no rigidity. No focal neuro deficits. Acute on chronic pancreatitisrelated to alcohol abuseseems to be improving. Continue IV fluids and supportive care, hopefully advance diet soon. Alcohol abusethiamine, folate. Follow for withdrawal, fortunately none thus f ar. Otherwise as above Subjective The patient is a 80 year old man with a history of DM2, alcohol abuse, liver cirrhosis, GI bleed, and esophageal varices, who presented last night with increasing epigastric pain. Imaging and labs in ED consistent with acute pancreatitis, most likely due to alcohol use. Thiamine, folic acid and lactated ringers were started in the ED. This morning the patient is feeling better. He says he slept relatively well, and although he still has discomfort, his pain is much improved. He complains of slight nausea. He is pleasant and conversational. Last alcohol use was Wednesday. Patient says that he usually drinks around six beers a night. He has never experienced withdraw in the past. Patient says he feels well and is not noticing any effects from stopping his alcohol use. Review of Systems Review of Systems: All systems reviewed & are unremarkable except as noted in HPI & below Cardiovascular: Additional Comments: Patient has had a heart murmur for many years. He has no chest pain or shortness of breath. Physical Exam Constitutional: Alert, lying down in bed, in some pain. A&Ox3 ENMT: external ear and nose normal, oropharynx normal Neck: normal visual inspection Respiratory: normal respiratory effort, lungs clear to auscultation Cardiovascular: Rate/Rhythm: regular rate and regular rhythm Heart Sounds: + murmur Chest (Breasts): Chest: normal inspection of chest Gastrointestinal (Abdomen): Diffusely tender, with most severe pain in epigastric region. Skin: no rashes, warm and dry Neurologic: No tremor. Psychiatric: Orientation: alert and oriented x 3 Results & Data ([facility]) Vital Signs (Past 12 Hours) Vital Signs Temp Pulse Resp BP BP Pulse Ox 04/03/21 14:50 37 C 64 18 157/85 H 96 04/03/21 12:47 36.6 C 63 18 161/83 H 96 04/03/21 07:16 36.5 C 79 18 165/83 H 96
--- NOTE | 2021-04-03 19:25 | Billing Data ---
Date of Service April 03, 2021 Coding Level of Care Code 47115 Initial Inpt Care Lvl 3
--- NOTE | 2021-04-03 20:03 | Billing Data ---
Date of Service April 03, 2021 Coding Level of Care Code 09264 Subseq Hosp Care Lvl 3
[2021-04-03] MEDS: ATORVASTATIN 40 MG TAB PO SCH (20:19)
[2021-04-04] MEDS: LACTATED RINGER'S 1,000 ML IV SCH ×5 (01:40→21:19)
[2021-04-04] MEDS: MoRPHine SULFATE 2 MG/ML CARP IV PRN ×4 (03:17→22:37)
[2021-04-04 07:39] LABS: Basophils # (auto) 0.01 K/uL (0-0.2); Basophils % (auto) 0.2 %; Eosinophils # (auto) 0.04 K/uL (0-0.5); Eosinophils % (auto) 0.9 %; Hematocrit (blood only) 31.1 % (42-52); Hemoglobin 9.5 g/dL (14.0-18.0); Immature Granulocytes # (auto) 0.01 K/uL (0.00-0.02); Immature Granulocytes % (auto) 0.2 %; Lymphocytes # (auto) 1.43 K/uL (1.2-3.4); Lymphocytes % (auto) 33.8 %; Mean Corpuscular Hemoglobin 22.5 pg (25-34); Mean Corpuscular Hgb Conc 30.5 g/dL (32-36); Mean Corpuscular Volume 73.5 fL (80-100); Monocytes # (auto) 0.55 K/uL (0.11-0.59); Neutrophils # (auto) 2.19 K/uL (1.4-6.5); Neutrophils % (auto) 51.9 %; Platelet Count 133 K/uL (130-400); RDW Coefficient of Variation 18.6 % (11.5-14.5); RDW Standard Deviation 49.9 fL (36.4-46.3); Red Blood Count 4.23 M/uL (4.7-6.1); White Blood Count 4.23 K/uL (4.8-10.8)
[2021-04-04 07:55] LABS: Calcium 8.6 mg/dl (8.5-10.1); Creatinine Clr Calc Pharmacy 115.5 ml/min; Est GFR (African American) 119.3 ml/min; Potassium 3.4 mmol/L (3.5-5.1)
[2021-04-04] MEDS: ONDANSETRON INJ 2 MG/ML 2 ML VIAL IV PRN (08:05)
[2021-04-04 08:07] LABS: Hypochromasia Present; Microcytosis Present
[2021-04-04] MEDS: INSULIN ASPART 100 UNITS/ML 3 ML PEN SC SCH ×4 (09:02→20:39)
[2021-04-04] MEDS: GABAPENTIN 100 MG CAP PO SCH ×2 (09:10→20:40)
[2021-04-04] MEDS: VENLAFAXINE HCL XR 75 MG CAPXR PO SCH (09:10)
[2021-04-04] MEDS: amLODIPine BESYLATE 5 MG TAB PO SCH (09:10)
[2021-04-04] MEDS: ENOXAPARIN INJ 40 MG/0.4 ML SYR SQ SCH (09:10)
[2021-04-04] MEDS: PROPRANOLOL HCL 20 MG TAB PO SCH ×2 (09:10→20:41)
[2021-04-04] MEDS: FOLIC ACID 1 MG in SYRINGE 9.8 ML IV SCH (09:59)
[2021-04-04] MEDS: THIAMINE HCL 100 MG in SYRINGE 9 ML IV SCH (09:59)
--- NOTE | 2021-04-04 10:39 | Gastroenterology Progress Note ---
Date of Service April 04, 2021 Assessment & Plan (1) Acute pancreatitis: (2) Alcohol abuse: (3) Liver cirrhosis, alcoholic: Patient is a 80 y.o. male with ETOH associated cirrhosis and hx of pancreatitis admitted with epigastric pain, n/v, elevated lipase and abnormal CT imaging with findings of pancreatic atrophy, calcification and fat stranding consistent with acute on chronic pancreatitis. 1. Continue dietary advancement as tolerated. 2. Continue supportive care with IV fluids, antiemetics and analgesics as prescribed. 3. Started Pancreaze 20730 units, 3 capsules prior to meals. 4. Continue supportive care. 5. Ongoing outpatient follow up and MRI panc. protocol as planned in June. Thank you for allowing us to participate in the care of this patient. If you have any questions or concerns, please do not hesitate to contact us as [phone] or [phone]. Admission and Anticipated Discharge Date Admission Date: April 02, 2021 Supervising Physician Co-Signing Physician Notes Agree with IRISH Andrade as above Abd: Soft, Tender b/l Lower quadrants Continue current therapy and supportive care Subjective Patient reports improved abdominal pain. Minimal nausea. Tolerating full liquid diet. No other complaints. Review of Systems Constitutional: no fever and no chills Gastrointestinal: as per Subjective / HPI Physical Exam Constitutional: WD/WN, vitals as above Respiratory: normal respiratory effort, lungs clear to auscultation Cardiovascular: RRR, no murmur, no edema Gastrointestinal (Abdomen): Inspection/Auscultation: normal bowel sounds Percussion/Palpation: + abdomen tender (minimal) and abdomen soft Psychiatric: A+Ox3, euthymic affect Results & Data Results & Data ([facility]) Vital Signs (Past 12 Hours) Vital Signs Temp Pulse Resp BP BP Pulse Ox 04/04/21 09:08 79 135/75 04/04/21 07:28 36.7 C 61 16 157/85 H 95 04/04/21 03:09 36.5 C 61 15 163/80 H 94 04/03/21 22:55 36.8 C 60 15 145/82 H 95 PG Care Time/CCT Total # of Minutes Spent Total Time Spent with Patient: Total time spent is greater than 50% in coord ination of care (as documented) at patient's floor/unit and/or counseling patient: Coding Level of Care Code 69900 Subseq Hosp Care Lvl 3 Diagnoses Acute pancreatitis K85.20 Acute pancreatitis complication: unspecified Pancreatitis type: alcohol induced Alcohol abuse F10.10 Liver cirrhosis, alcoholic K70.30 Ascites presence: without ascites (1) Liver cirrhosis, alcoholic Ascites presence: without ascites Qualified Code(s): K70.30 - Alcoholic cirrhosis of liver without ascites (2) Acute pancreatitis Acute pancreatitis complication: unspecified Pancreatitis type: alcohol induced Qualified Code(s): K85.20 - Alcohol induced acute pancreatitis without necrosis or infection
--- NOTE | 2021-04-04 14:00 | Medical Student Progress Note ---
Date of Service April 04, 2021 Assessment & Plan (1) Acute pancreatitis: Imaging and labs are consistent with acute pancreatitis, based on history is most likely due to alcohol use. -Continue to give lactated ringers 200/hr. -Continue to give morphine PRN for pain control. -Continue Zofran for nausea. -Advance diet as tolerated. Acute pancreatitis complication: unspecified Pancreatitis type: alcohol induced Qualified Code(s): K85.20 - Alcohol induced acute pancreatitis without necrosis or infection (2) Alcohol abuse: Concern for alcohol withdraw based on everyday alcohol consumption - monitor closely. -Give IV thiamine and folic acid. -Monitor electrolytes. -Continue patient education and help patient formulate a plan for stopping alcohol use. (3) Anemia: Most likely a chronic anemia of alcoholism further diluted by fluid maintenance (10.3 yesterday, 9.5 today). -Trend Hgb Admission and Anticipated Discharge Date Admission Date: April 02, 2021 Supervising Attestation I personally examined the patient and verified all samson points of history and exam, discussed case, and agree with decision making with Becky Modi MS2 pain improved, still present. nausea improved, still present Vitals noted, in general he is awake and alert pleasant no distress. HEENT normocephalic atraumatic mucous membranes are moist. He has no tremor. Abdomen is soft but he does have epigastric tenderness, no rigidity, better than yesterday. No focal neuro deficits. Acute on chronic pancreatitisrelated to alcohol abuseseems to be improving. Continue IV fluids (since improving, will slow to maintenance rate) and supportive care, slowly advance diet. Alcohol abusethiamine, folate. Follow for withdrawal, fortunately none thus far. continue to encourage cessation Otherwise as above Subjective The patient is a 80 year old man with a history of DM2, alcohol abuse, liver cirrhosis, GI bleed, and esophageal varices, who was admitted yesterday for acute pancreatitis. Last night the patient began taking clear liquids. He slept well, but this morning has been experiencing worse nausea. He was seen sitting up in bed and eating a clear liquid diet. He says his pain is managed, and that his nausea is what is bothering him the most at this time. Discussed cessation of alcohol use with patient. Patient feels motivated to quit, but is still unsure of his ability to carry out a plan. Encouraged him to share his intentions to quit with his , and ask her to remove all alcohol from the house before he went home. Review of Systems Cardiovascular: Additional Comments: Patient has had a heart murmur for many years. He has no chest pain or shortness of breath. Physical Exam ENMT: external ear and nose normal, oropharynx normal Neck: normal visual inspection Respiratory: normal respiratory effort, lungs clear to auscultation Cardiovascular: Rate/Rhythm: regular rate and regular rhythm Heart Sounds: + murmur Chest (Breasts): Chest: normal inspection of chest Gastrointestinal (Abdomen): Abdomen is alcohol still operator, but less so than yesterday. Pain is concentrated in the epigastric region. Skin: no rashes, warm and dry Psychiatric: Orientation: alert and oriented x 3 Results & Data ([facility]) Vital Signs (Past 12 Hours) Vital Signs Temp Pulse Resp BP BP Pulse Ox 04/04/21 11:12 36.7 C 62 16 137/70 99 04/04/21 09:08 79 135/75 04/04/21 07:28 36.7 C 61 16 157/85 H 95 04/04/21 03:09 36.5 C 61 15 163/80 H 94
[2021-04-04] MEDS: PANCREAZE (LIPASE 16,800U) CAP PO SCH ×2 (17:52)
--- NOTE | 2021-04-04 19:06 | Billing Data ---
Date of Service April 04, 2021 Coding Level of Care Code 67885 Subseq Hosp Care Lvl 3
[2021-04-04] MEDS: ATORVASTATIN 40 MG TAB PO SCH (20:41)
[2021-04-05] MEDS: LACTATED RINGER'S 1,000 ML IV SCH ×2 (01:06→09:22)
[2021-04-05 06:47] LABS: Hemoglobin 9.1 g/dL (14.0-18.0); Mean Corpuscular Hemoglobin 22.5 pg (25-34); Mean Corpuscular Hgb Conc 30.3 g/dL (32-36); Mean Corpuscular Volume 74.3 fL (80-100); Mean Platelet Volume 9.9 fL (7.4-10.4); Platelet Count 132 K/uL (130-400); RDW Coefficient of Variation 18.5 % (11.5-14.5); RDW Standard Deviation 50.1 fL (36.4-46.3); Red Blood Count 4.04 M/uL (4.7-6.1); White Blood Count 3.57 K/uL (4.8-10.8)
[2021-04-05 07:20] LABS: Albumin Level 2.8 gm/dl (3.4-5.0); BUN Creatinine Ratio 7.2 (10-20); Calcium 8.3 mg/dl (8.5-10.1); Creatinine Clr Calc Pharmacy 111.1 ml/min; Est GFR (African American) 117.5 ml/min; Est GFR (Non-African American) 101.3 ml/min; Potassium 3.2 mmol/L (3.5-5.1)
[2021-04-05 07:23] LABS: Albumin Globulin Ratio 0.8 (0.9-2); Bilirubin,Total 0.7 mg/dl (0.2-1); Globulin 3.5 gm/dl (2.5-4.0); Total Protein 6.3 gm/dl (6.4-8.2)
[2021-04-05] MEDS ORDERED: POTASSIUM CHLORIDE 20 MEQ/15 ML UDC PO STA (07:37)
[2021-04-05] MEDS: GABAPENTIN 100 MG CAP PO SCH (08:29)
[2021-04-05] MEDS: PROPRANOLOL HCL 20 MG TAB PO SCH (08:29)
[2021-04-05] MEDS: amLODIPine BESYLATE 5 MG TAB PO SCH (08:29)
[2021-04-05] MEDS: FOLIC ACID 1 MG in SYRINGE 9.8 ML IV SCH (08:29)
[2021-04-05] MEDS: THIAMINE HCL 100 MG in SYRINGE 9 ML IV SCH (08:30)
[2021-04-05] MEDS: VENLAFAXINE HCL XR 75 MG CAPXR PO SCH (08:30)
[2021-04-05] MEDS: ENOXAPARIN INJ 40 MG/0.4 ML SYR SQ SCH (08:30)
[2021-04-05] MEDS: PANCREAZE (LIPASE 16,800U) CAP PO SCH ×2 (08:30→12:10)
[2021-04-05] MEDS: INSULIN ASPART 100 UNITS/ML 3 ML PEN SC SCH ×2 (08:35→12:21)
--- NOTE | 2021-04-05 10:12 | Hospitalist Progress Note ---
Date of Service April 05, 2021 Assessment & Plan Admission and Anticipated Discharge Date Admission Date: April 02, 2021 Results & Data Results & Data ([facility]) Vital Signs (Past 12 Hours) Vital Signs Temp Pulse Resp BP BP Pulse Ox 04/05/21 07:11 36.8 C 63 18 137/56 L 97 04/04/21 22:29 37.0 C 59 L 16 142/73 H 97
[2021-04-05] MEDS ORDERED: oxyCODONE HCL IR 5 MG TAB (IMMEDIATE RELEASE) PO STA (14:17)
--- NOTE | 2021-04-05 14:19 | Discharge Summary ---
Date of Service April 05, 2021 Admission HPI Per Admitting Provider Mr. 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 It began after dinner last evening and has progressive since onset. It is worse with ambulation. There was associated nausea but no vomiting. No change in bowel movements/no melena. No fevers. He says this discomfort feels very similar to his previous episode of pancreatitis. Sx: He is a non-smoker. He drinks 3-4 beers per day. He denies ever going through alcohol withdrawal in the past. His last drink was at 8:30 pm on Wednesday night, 04/01/21. In the ED, he was febrile with normal HR. His WBC was normal, Hgb mildly low at 11.0, MCV at 73. Platelets normal. Na 133, electrolytes otherwise normal. Kidney function normal. ALT/AST not elevated. Alk phos elevated to 209.T-bili not elevated. Lipase elevated to 3649. Trop undetectable. UA benign. Covid 19 neg. EKG showing NSR without ectopy. CXR showing no vascular congestion or consolidation; interval widening of paratracheal stripe (CT follow up recommended). CT of abdomen and pelvis showing fat stranding around pancreas and 2nd and 3rd portion of duodenum; cystic lesions of pancreatic body and a small calculus in the pancreatic head. He was given 1 liter of NSS, zofran, 20mg famotidine, 40 mg protonix and a 50mcg IV fentanyl. Principal Diagnosis Acute alcoholic pancreatitis Discharge Exam ENMT: External ear and nose normal, oropharynx normal Neck: Normal visual inspection Respiratory: Normal respiratory effort, lungs clear to auscultation Cardiovascular: Regular rate and regular rhythm, + murmur Gastrointestinal: Abdomen nontender, soft, BS + x4 Skin: no rashes, warm and dry Psychiatric: alert and oriented x 3 Discharge Data Allergies Allergy/AdvReac Type Severity Reaction Status Date / Time No Known Allergies Allergy Verified 04/02/21 16:46 Consultations 04/02/21 19:17 ED Decision to Admit Stat 04/02/21 20:35 Consult Gastroenterology Routine Ordered Studies 04/02/21 16:37 CT abd pelvis IV con only Stat 04/02/21 20:38 CT chest diagnostic wo con Routine Hospital Course (1) Acute pancreatitis: Acute Pancreatitis - Imaging and labs consistent with acute pancreatitis, based on history is most likely due to alcohol use -Gave lactated ringers 200/hr. -Had morphine PRN for pain control. -Continue Zofran for nausea. -Diet advanced and patient tolerated regular food before discharge Alcohol Abuse - No signs of alcohol withdrawal while admitted -Received IV thiamine and folic acid. -Recommend continued discussion of alcohol cessation as outpatient Anemia - Most likely a chronic anemia of alcoholism further diluted by IV fluids as above - 9.1 at discharge -Given that it is microcytic anemia, should have iron studies/make sure he is up-to-date with colonoscopy if he so desires as an outpatient. CODE: FULL DISPO: Home (2) Alcohol abuse: (3) Anemia: Total Time Total Time Spent Total Time Spent (In Minutes): <30 Discharge Plan Discharge Items Patient Disposition: Home - Self-Care Reason For Visit: ACUTE PANCREATITIS Discharge Diagnosis: Acute alcoholic pancreatitis Condition on Discharge: Good Activity: Per Instructions section Non-emergency contact: Primary Care Provider Call non-emergency contact if: your symptoms worsen, your pain is worsening and your temperature is above 101 Follow-up/Referrals: Elliott Ng CRNP [Primary Care Provider] - Diet: Heart Healthy Addtl Attending Provider Instructions: You were admitted to [facility] after you arrive complaining of abdominal pain. You were found to have acute pancreatitis that was corroborated with imaging and labs. This was thought to be most likely due to alcohol abuse. While admitted you were given IV fluids as well as medications for pain control and nausea control. Eventually your diet was advanced and you tolerated oral nutrition and hydration. As such, you were deemed to be stable for discharge. We recommend that you follow-up with your primary care provider to discuss your hospitalization. Additionally, we recommend that you take steps to taper down and eventually completely stop your alcohol use, as this has proven to be a cause of many of your medical ailments. If you develop fever, chills, worsening abdominal pain, nausea, vomiting, or any other concerning symptoms please seek emergency medical care. Thank you for allowing us to participate in your care. Pending Studies at Discharge: No Stand-Alone Forms: My [facility] [address] [place], Smoking Cessation Medications and DC Order Prescriptions: Continued metformin 1,000 mg tablet 1,000 mg PO BID Qty: 180 RF: 4 diazepam 5 mg tablet 5 mg PO ONCE PRN (Reason: anxiety) Qty: 2 RF: 0 meclizine 25 mg tablet 25 mg PO BID PRN (Reason: dizziness) Qty: 20 RF: 0 propranolol 40 mg tablet 40 mg PO BID RF: 0 amlodipine 5 mg tablet 5 mg PO DAILY RF: 0 oxycodone 5 mg capsule 5 mg PO BID PRN (Reason: Pain) RF: 0 alogliptin 25 mg tablet 25 mg PO QAM RF: 0 ondansetron 4 mg tablet,disintegrating 4 mg PO Q6H PRN (Reason: Nausea And Vomiting) Qty: 30 RF: 2 atorvastatin 80 mg tablet 80 mg PO HS RF: 0 venlafaxine 75 mg capsule,extended release 24hr 225 mg PO QAM RF: 0 acetaminophen 500 mg tablet 1,000 mg PO BID PRN (Reason: Pain) RF: 0 methocarbamol 500 mg tablet 500 mg PO TID PRN (Reason: Muscle Spasm) RF: 0 pantoprazole 40 mg tablet,delayed release (DR/EC) 40 mg PO BID Qty: 0 RF: 0 gabapentin 100 mg capsule 200 mg PO BID Qty: 120 RF: 0 Discharge Orders: Discharge Order (Routine); Ordered 04/05/21 Ordered By: Celio Booth Admission Data Admit Date/Time: 04/02/21 19:41 Attending Provider: David Ricketts Admit Provider: Khadijah Jerez Primary Care Provider: Elliott Ng Other Providers: Lon Pace ; Ashwin Nava Other Interventions: Discharge Summary Assessment (RN) Last Done: 04/05/21 14:06 Supervising Physician Co-Signing Physician Notes I personally examined the patient and verified all samson points of history and exam, discussed case, and agree with decision making with Dr. Guzman Pain much improved, has not had a bowel movement but feels like 1 may be coming. Tolerating food well. Vitals noted, in general he is awake and alert pleasant no distress. HEENT normocephalic atraumatic mucous membranes are moist. He has no tremor. Abdomen is soft minimal to no epigastric tenderness, no guarding/rebound/rigidity.. No focal neuro deficits. Acute on chronic pancreatitisrelated to alcohol abuseimproving nicely, tolerating diet, safe for home. Needs to cease alcohol. Alcohol abusethiamine, folate. Showed no withdrawal. continue to encourage cessation as outpatient Otherwise as above Resident Activity Tracking Resident Involvement: Resident Care Provided Care Provided: Adult Hospital Medicine
--- NOTE | 2021-04-05 15:47 | Billing Data ---
Date of Service April 05, 2021 Coding Level of Care Code D/C Day Management <30 mins
== END 2021-04-05 15:00 | disposition home or self-care (01) | DRG 439 ==
LOC: ED 14:50 → 3W 19:41 → SUATTDRO 19:41 → 3W 20:13

== ENCOUNTER 2022-11-03 09:30 | Inpatient (IN) ==
--- NOTE | 2022-11-03 09:37 | Emergency Department Note ---
Impression & Plan Symptomatic anemia, Acute GI bleeding, Elevated troponin ED Provider Note NAME: SABINA CLARK AGE: 82 SEX: M : 1940 ARRIVES VIA: Ambulance INFORMANT: Patient, ED PROVIDER(S): Brenden Magana MD CHIEF COMPLAINT: Confusion MEDICAL DECISION MAKING: Patient did present due to concern for confusion. The patient currently denies any complaints. The patient did have blood work completed along with an ammonia urinalysis and CT of the head. GI also obtained the patient was given small IV fluid bolus 500 cc. The patient's blood work showed a normal white count with hemoglobin of 6.9. This is an acute change most recent hemoglobin from September 21 was 9.7. Platelet counts is unremarkable. Patient does have mild hypokalemia magnesium slightly low at 1.3. Patient's initial troponin of 24.6. TSH is high but free T4 is normal. Urinalysis does not show obvious infection. The patient did have heme positive stool. COVID-negative. Patient's chest x-ray did not show any acute process. CT of the head is negative. Patient's EKG does show some ST depressions which do appear more pronounced with the patient denies any chest pains or shortness of breath. Would not recommend heparinization given the patient's GI bleed and believe that the patient's symptomatic anemia may be causing the patient's EKG changes. I did speak with the on-call hospitalist and the patient was admitted by the medicine service by Dr. Wilkes. Critical Care: I have personally spent 45 minutes of critical care time in direct management of this patient. This includes bedside care, interpretation of diagnostic studies, and testing, discussion with consultants, patient, and family members, and other require inpatient management activities. This 45 minutes is in excess of all separately billable procedures. Prior /Outside records reviewed: Yes Differential diagnosis: Infection, dehydration, metabolic abnormality, hypo/hyperglycemia, electrolyte disturbance, anemia, hypoxia, cardiac sources, intracerebral event, toxicologic, neurologic, as well as other pathologies. Diagnostics, as interpreted by me: ECG: Sinus, rate of 93 depressions seen in the lateral leads. Patient's ST depressions are more pronounced from comparison May 30, 2022. Cardiac monitoring: An order was placed for continuous cardiac monitoring. The monitor shows a rate of 82 with sinus rhythm. Patient was placed on pulse oximetry Medical decision rules: None Imaging studies: See below HPI: Patient presents via EMS due to concern for confusion. The had called EMS. They reported that he had been having some urinary symptoms with some suprapubic discomfort. Patient states that he just does not feel well but does not elaborate on symptoms and states he has no head or neck pain no chest pains or shortness of breath no abdominal pain nausea or vomiting. The patient has had no reported falls. The patient does have a prior history of alcohol use but denies alcohol or tobacco. EMS states that the patient did not have any reported falls or trauma and the patient had a normal BSG and vital signs. Patient does not reportedly take any blood thinning medications. No additional exacerbating or remitting factors PAST MEDICAL HISTORY: See Below PAST SURGICAL HISTORY: See Below SOCIAL HISTORY: See Below HOME MEDICATIONS: See Below ALLERGIES: See Below VITALS: See Below PHYSICAL EXAMINATION: GENERAL: NAD, wearing a mask, non-toxic. Wearing glasses. EYE EXAM: Normal conjunctiva. PERRL, no anisocoria and EOM's grossly intact w/o pain. NECK: Supple, no nuchal rigidity, no adenopathy, non-tender. No signs of meningismus. FROM of the neck with good chin to chest and neck extension. No stridor. LUNGS: Clear to auscultation. Normal chest wall mechanics. HEART: NSR, no MRG. ABDOMEN: Abdomen soft, non-tender, normo-active bowel sounds, no masses, no rebound or guarding. BACK: No CVA TTP. SKIN: No rashes and no bruising. UPPER EXTREMITIES: Upper extremities are grossly normal. LOWER EXTREMITIES: Grossly normal, no edema. NEURO EXAM: Awake and alert oriented to person and date of not oriented to place, cranial nerves II-XII grossly intact, normal speech, moves all 4 extremities. No sensory deficits. Past Med/Surg History Medical History Abdominal ascites Acute pancreatitis Alcohol dependence Anxiety Bilateral primary osteoarthritis of knee Bilateral tinnitus Carpal tunnel syndrome Cervical spondylosis without myelopathy Depression Diabetes mellitus, type 2 NIDDM Esophageal varices Grade 1 small varices in the lower third of the esophagus per 09/30/20 EGD, undergoes routine surveillance EGDs Fatty liver GERD (gastroesophageal reflux disease) controlled Hiatal hernia History of gastric polyp History of prostate cancer s/p prostatectomy (1998), no chemo/no radiation Hypercholesterolemia Hypertension 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 Left knee DJD Left knee DJD Liver cirrhosis, alcoholic hx small esophageal varices (09/2020) under surveillance, no banding indicated on most recent EGD, follows with [facility], stable Lumbar stenosis Neck pain with history of cervical spinal surgery Restless legs syndrome Sensorineural hearing loss (SNHL) of both ears Thrombocytopenia hx cirrhosis, chronic mild thrombocytopenia Surgical History History of biopsy pancreatic mass biopsy on 07/01/2020 - benign History of colonoscopy (06/2018) History of cystoscopy d/t incontinence History of esophagogastroduodenoscopy (EGD) (11/2019) 11/30/19: MAC sedation at [facility] History of laminectomy X3 History of prostatectomy History of right inguinal hernia repair History of tooth extraction Hx of cervical spine surgery (12/2019) C3-C6 laminectomy, C3-T1 PCF Hx of inguinal hernia surgery (09/14/19) Open Right Inguinal Hernia Repair with Mesh: 09/14/19: LMA#5 at [facility] S/P total knee arthroplasty 11/12/20 Dr. Khoa Fink- Right TKA Status post right knee replacement Family History Sister Family history of diabetes mellitus Breast cancer Mother Colorectal cancer Stroke Hypertension Brother Prostate cancer Colorectal cancer Father Myocardial infarction Son Thyroid disease Mother Family history of diabetes mellitus Sister Family history of diabetes mellitus Sister Family history of diabetes mellitus Other Cancer No family history of adverse response to anesthesia No family history of allergies No family history of bleeding disorder Denies family history of Ovarian cancer Hearing loss Heart disease Asthma Social History Smoking Status: Never smoker Tobacco Type: Smokeless Tobacco (Dip or Chew) Second Hand Exposure: No; Hx Alcohol Use: Yes Alcohol type: beer Alcohol Intake Frequency: 4 or More x per/Week Alcohol Intake Frequency Comment: at night 4-5 beers a night Hx Substance Use: Yes Prescribed Medications: Opiates Preferred Language: Kyrgyz Communication Ability: Effective Visual Impairment: No Limitations Hearing Ability: Use of Hearing Aid Training Manager Required: No Beliefs That Will Affect Care: None marital status: Current Living Situation: Spouse current occupational status: retired Feels Safe at Home: Yes Safety Concerns: Feels Safe At This Time Childhood Exposure to Second-Hand Smoke: No Diet Comment: regular caffeine: No during the past year weight has: remained stable Dental Care, Regularly: No Physical Activity Frequency: Daily Physical Activity Frequency Comment: limited by physical condition Seatbelt Use: always Sunscreen Use: No Assistive Devices: Hearing Aid - Bilateral Allergies Allergies Allergy/AdvReac Type Severity Reaction Status Date / Time No Known Drug Allergies Allergy Unknown Verified 05/27/22 13:38 Home Meds Home Medications Medication Instructions Recorded Confirmed atorvastatin 80 mg tablet 80 mg PO HS 06/13/19 11/03/22 venlafaxine 75 mg capsule,extended 225 mg PO QAM 11/21/19 11/03/22 release 24 hr alogliptin 25 mg tablet 25 mg PO QAM 08/02/20 11/03/22 amlodipine 5 mg tablet 5 mg PO QAM 12/10/20 11/03/22 propranolol 40 mg tablet 40 mg PO BID 12/10/20 11/03/22 diclofenac sodium 1 % topical gel 2 g topical QID PRN Pain 05/13/21 11/03/22 (Voltaren Arthritis Pain) lidocaine 5 % topical patch 1 patch topical DAILY PRN Pain 05/13/21 11/03/22 (Lidoderm) ascorbic acid (vitamin C) 250 mg 250 mg PO QAM 08/20/21 11/03/22 tablet cholecalciferol (vitamin D3) 25 25 mcg PO QAM 08/20/21 11/03/22 mcg (1,000 unit) capsule ferrous sulfate 325 mg (65 mg 325 mg PO HS 08/20/21 11/03/22 iron) tablet gabapentin 100 mg capsule 400 mg PO HS 12/01/21 11/03/22 hydrocodone 10 mg-acetaminophen 1 tab PO BID PRN Pain 12/01/21 11/03/22 325 mg tablet bupropion HCl 150 mg tablet,12 hr 150 mg PO QAM 04/27/22 11/03/22 sustained-release (Wellbutrin SR) Previous Rx's Medication Instructions Recorded metformin 1,000 mg tablet 1,000 mg PO BID #180 tabs 05/30/20 pantoprazole 40 mg tablet,delayed 40 mg PO BID #0 tabs 12/07/20 release meclizine 25 mg tablet 25 mg PO BID PRN dizziness #20 tabs 03/13/21 ondansetron 4 mg disintegrating 4 mg PO Q6H PRN Nausea And 03/26/21 tablet Vomiting #30 tabs fluticasone propionate 50 2 spray intranasal DAILY #16 grams 11/25/21 mcg/actuation nasal spray,suspension Results & Data (ED) Vital Signs Vital Signs - 24 hr 11/03/22 09:17 11/03/22 09:42 Temperature 36.8 C Temperature Source Oral Pulse Rate 91 H Respiratory Rate 20 Respiratory Effort / Characteristics Non-Labored Spontaneous Respiratory Depth Normal Respiratory Pattern Regular Blood Pressure 166/85 H Blood Pressure Mean 112 Pulse Oximetry 95 95 Oxygen Delivery Method Room Air Room Air Sepsis Recent Fever Within 48 Hours No Sepsis New/Unexplained Change in Mental Status No Sepsis Action Taken by Nursing No Action Required Home Medications Current Medication List: was personally reviewed by me Laboratory Data Attestation: I reviewed the patient's lab results. 11/03/22 09:54 11/03/22 09:54 Lab Results 11/03/22 11/03/22 11/03/22 Range/Units 09:54 09:54 09:54 WBC (4.8-10.8) K/ul RBC (4.63-6.08) M/uL Hgb (14.0-18.0) g/dl Hct (40.1-51.0) % MCV (80.0-100.0) fL MCH (25.0-34.0) pg MCHC (32.0-36.0) g/dL RDW Std Deviation (36.4-46.3) fL RDW Coeff of Elliot (11.5-14.5) % Plt Count (130-400) K/uL MPV (9.4-12.4) fL Immature Gran % (Auto) % Neut % (Auto) % Lymph % (Auto) % [place] % (Auto) % Eos % (Auto) % Baso % (Auto) % Neut # (Auto) (1.4-6.5) K/uL Lymph # (Auto) (1.2-3.4) K/uL [place] # (Auto) (0.24-0.82) K/uL Eos # (Auto) (0-0.50) K/uL Baso # (Auto) (0-0.2) K/uL Immature Gran # (Auto) (0.00-0.02) K/uL Hypochromasia Anisocytosis Echinocytes PT 13.4 H (9.0-12.0) Seconds INR 1.3 H (0.9-1.1) Sodium 141 (136-145) mmol/L Potassium 3.2 L (3.5-5.1) mmol/L Chloride 107 (98-107) mmol/L Carbon Dioxide 24 (21-32) mmol/L Anion Gap 10 (3-11) BUN 26 H (6-23) mg/dl Creatinine 0.80 (0.6-1.4) mg/dl Est Cr Clr Drug Dosing Not Reportable Est GFR ( Amer) 97.8 ml/min Est GFR (Non-Af Amer) 84.4 ml/min BUN/Creatinine Ratio 32.5 H (10-20) Glucose 154 H (70-99(Fasting)) mg/dl Calcium 9.3 (8.5-10.1) mg/dl Magnesium 1.3 L (1.7-2.4) mg/dl Total Bilirubin 0.9 (0.2-1.0) mg/dl AST 36 (13-39) U/L ALT 24 (7-52) U/L Alkaline Phosphatase 83 (34-104) U/L Ammonia 44.0 (18-72) umol/L Troponin I High Sens 24.6 H (0-20) pg/ml Total Protein 6.0 (6.0-8.3) gm/dl Albumin 3.6 (3.4-5.0) gm/dl Globulin 2.4 L (2.5-4.0) gm/dl Albumin/Globulin Ratio 1.5 (0.9-2) TSH (0.300-4.500) uIu/ml Free T4 (0.61-1.60) ng/dl Urine Color Urine Appearance (Clear) Urine pH (4.5-7.5) Ur Specific [place] (1.000-1.030) Urine Protein (Negative) Urine Glucose (UA) (Negative) Urine Ketones (Negative) Urine Blood (Negative) Urine Nitrite (Negative) Urine Bilirubin (Negative) Urine Urobilinogen (Negative) Ur Leukocyte Esterase (Negative) POC Stool Occult Blood (Negative) SARS-CoV-2, RNA, NAAT (NEGATIVE) Blood Type Antibody Screen Crossmatch 11/03/22 11/03/22 11/03/22 Range/Units 09:54 09:54 09:59 WBC 4.74 L (4.8-10.8) K/ul RBC 2.44 L (4.63-6.08) M/uL Hgb 6.9 L* (14.0-18.0) g/dl Hct 21.2 L (40.1-51.0) % MCV 86.9 (80.0-100.0) fL MCH 28.3 (25.0-34.0) pg MCHC 32.5 (32.0-36.0) g/dL RDW Std Deviation 48.0 H (36.4-46.3) fL RDW Coeff of Elliot 15.3 H (11.5-14.5) % Plt Count 139 (130-400) K/uL MPV 10.6 (9.4-12.4) fL Immature Gran % (Auto) 0.2 % Neut % (Auto) 62.1 % Lymph % (Auto) 25.1 % [place] % (Auto) 11.6 % Eos % (Auto) 0.6 % Baso % (Auto) 0.4 % Neut # (Auto) 2.94 (1.4-6.5) K/uL Lymph # (Auto) 1.19 L (1.2-3.4) K/uL [place] # (Auto) 0.55 (0.24-0.82) K/uL Eos # (Auto) 0.03 (0-0.50) K/uL Baso # (Auto) 0.02 (0-0.2) K/uL Immature Gran # (Auto) 0.01 (0.00-0.02) K/uL Hypochromasia Present Anisocytosis Present Echinocytes 1+ PT (9.0-12.0) Seconds INR (0.9-1.1) Sodium (136-145) mmol/L Potassium (3.5-5.1) mmol/L Chloride (98-107) mmol/L Carbon Dioxide (21-32) mmol/L Anion Gap (3-11) BUN (6-23) mg/dl Creatinine (0.6-1.4) mg/dl Est Cr Clr Drug Dosing Est GFR ( Amer) ml/min Est GFR (Non-Af Amer) ml/min BUN/Creatinine Ratio (10-20) Glucose (70-99(Fasting)) mg/dl Calcium (8.5-10.1) mg/dl Magnesium (1.7-2.4) mg/dl Total Bilirubin (0.2-1.0) mg/dl AST (13-39) U/L ALT (7-52) U/L Alkaline Phosphatase (34-104) U/L Ammonia (18-72) umol/L Troponin I High Sens (0-20) pg/ml Total Protein (6.0-8.3) gm/dl Albumin (3.4-5.0) gm/dl Globulin (2.5-4.0) gm/dl Albumin/Globulin Ratio (0.9-2) TSH 5.103 H (0.300-4.500) uIu/ml Free T4 1.51 (0.61-1.60) ng/dl Urine Color Yellow Urine Appearance Clear (Clear) Urine pH 8.5 H (4.5-7.5) Ur Specific [place] 1.013 (1.000-1.030) Urine Protein Negative (Negative) Urine Glucose (UA) Negative (Negative) Urine Ketones Trace H (Negative) Urine Blood Negative (Negative) Urine Nitrite Negative (Negative) Urine Bilirubin Negative (Negative) Urine Urobilinogen Positive H (Negative) Ur Leukocyte Esterase Negative (Negative) POC Stool Occult Blood (Negative) SARS-CoV-2, RNA, NAAT (NEGATIVE) Blood Type Antibody Screen Crossmatch 11/03/22 11/03/22 11/03/22 Range/Units 10:11 10:30 10:56 WBC (4.8-10.8) K/ul RBC (4.63-6.08) M/uL Hgb (14.0-18.0) g/dl Hct (40.1-51.0) % MCV (80.0-100.0) fL MCH (25.0-34.0) pg MCHC (32.0-36.0) g/dL RDW Std Deviation (36.4-46.3) fL RDW Coeff of Elliot (11.5-14.5) % Plt Count (130-400) K/uL MPV (9.4-12.4) fL Immature Gran % (Auto) % Neut % (Auto) % Lymph % (Auto) % [place] % (Auto) % Eos % (Auto) % Baso % (Auto) % Neut # (Auto) (1.4-6.5) K/uL Lymph # (Auto) (1.2-3.4) K/uL [place] # (Auto) (0.24-0.82) K/uL Eos # (Auto) (0-0.50) K/uL Baso # (Auto) (0-0.2) K/uL Immature Gran # (Auto) (0.00-0.02) K/uL Hypochromasia Anisocytosis Echinocytes PT (9.0-12.0) Seconds INR (0.9-1.1) Sodium (136-145) mmol/L Potassium (3.5-5.1) mmol/L Chloride (98-107) mmol/L Carbon Dioxide (21-32) mmol/L Anion Gap (3-11) BUN (6-23) mg/dl Creatinine (0.6-1.4) mg/dl Est Cr Clr Drug Dosing Est GFR ( Amer) ml/min Est GFR (Non-Af Amer) ml/min BUN/Creatinine Ratio (10-20) Glucose (70-99(Fasting)) mg/dl Calcium (8.5-10.1) mg/dl Magnesium (1.7-2.4) mg/dl Total Bilirubin (0.2-1.0) mg/dl AST (13-39) U/L ALT (7-52) U/L Alkaline Phosphatase (34-104) U/L Ammonia (18-72) umol/L Troponin I High Sens (0-20) pg/ml Total Protein (6.0-8.3) gm/dl Albumin (3.4-5.0) gm/dl Globulin (2.5-4.0) gm/dl Albumin/Globulin Ratio (0.9-2) TSH (0.300-4.500) uIu/ml Free T4 (0.61-1.60) ng/dl Urine Color Urine Appearance (Clear) Urine pH (4.5-7.5) Ur Specific [place] (1.000-1.030) Urine Protein (Negative) Urine Glucose (UA) (Negative) Urine Ketones (Negative) Urine Blood (Negative) Urine Nitrite (Negative) Urine Bilirubin (Negative) Urine Urobilinogen (Negative) Ur Leukocyte Esterase (Negative) POC Stool Occult Blood Positive A (Negative) SARS-CoV-2, RNA, NAAT See Comment (NEGATIVE) Blood Type O Positive Antibody Screen NEGATIVE Crossmatch See Detail 11/03/22 Range/Units 11:10 WBC (4.8-10.8) K/ul RBC (4.63-6.08) M/uL Hgb (14.0-18.0) g/dl Hct (40.1-51.0) % MCV (80.0-100.0) fL MCH (25.0-34.0) pg MCHC (32.0-36.0) g/dL RDW Std Deviation (36.4-46.3) fL RDW Coeff of Elliot (11.5-14.5) % Plt Count (130-400) K/uL MPV (9.4-12.4) fL Immature Gran % (Auto) % Neut % (Auto) % Lymph % (Auto) % [place] % (Auto) % Eos % (Auto) % Baso % (Auto) % Neut # (Auto) (1.4-6.5) K/uL Lymph # (Auto) (1.2-3.4) K/uL [place] # (Auto) (0.24-0.82) K/uL Eos # (Auto) (0-0.50) K/uL Baso # (Auto) (0-0.2) K/uL Immature Gran # (Auto) (0.00-0.02) K/uL Hypochromasia Anisocytosis Echinocytes PT (9.0-12.0) Seconds INR (0.9-1.1) Sodium (136-145) mmol/L Potassium (3.5-5.1) mmol/L Chloride (98-107) mmol/L Carbon Dioxide (21-32) mmol/L Anion Gap (3-11) BUN (6-23) mg/dl Creatinine (0.6-1.4) mg/dl Est Cr Clr Drug Dosing Est GFR ( Amer) ml/min Est GFR (Non-Af Amer) ml/min BUN/Creatinine Ratio (10-20) Glucose (70-99(Fasting)) mg/dl Calcium (8.5-10.1) mg/dl Magnesium (1.7-2.4) mg/dl Total Bilirubin (0.2-1.0) mg/dl AST (13-39) U/L ALT (7-52) U/L Alkaline Phosphatase (34-104) U/L Ammonia (18-72) umol/L Troponin I High Sens (0-20) pg/ml Total Protein (6.0-8.3) gm/dl Albumin (3.4-5.0) gm/dl Globulin (2.5-4.0) gm/dl Albumin/Globulin Ratio (0.9-2) TSH (0.300-4.500) uIu/ml Free T4 (0.61-1.60) ng/dl Urine Color Urine Appearance (Clear) Urine pH (4.5-7.5) Ur Specific [place] (1.000-1.030) Urine Protein (Negative) Urine Glucose (UA) (Negative) Urine Ketones (Negative) Urine Blood (Negative) Urine Nitrite (Negative) Urine Bilirubin (Negative) Urine Urobilinogen (Negative) Ur Leukocyte Esterase (Negative) POC Stool Occult Blood (Negative) SARS-CoV-2, RNA, NAAT NEGATIVE (NEGATIVE) Blood Type Antibody Screen Crossmatch Administered Medications Amlodipine Besylate (Amlodipine Besylate 5 Mg Tab) 5 mg PO [facility] Stop: 12/03/22 14:14 Last Admin: 11/03/22 14:51 Dose: 5 mg Documented By: JORY Bupropion HCl (Bupropion Sr 150 Mg Tabcr) 150 mg PO [facility] Stop: 12/03/22 14:14 Last Admin: 11/03/22 14:51 Dose: 150 mg Documented By: JORY Ceftriaxone Sodium 1,000 mg/ (Dextrose) 50 mls @ 100 mls/hr IV DAILY [facility]; Protocol Stop: 11/10/22 12:59 Last Infusion: 11/03/22 15:04 Dose: 0 mls/hr Documented By: Admin: 11/03/22 14:30 Dose: 100 mls/hr Documented By: JORY Magnesium Sulfate/Dextrose (Magnesium Sulfate / D5w) 1 gm in 100 mls @ 50 ml s/hr IV Q2H [facility] Stop: 11/03/22 18:14 Last Admin: 11/03/22 15:39 Dose: 50 mls/hr Octreotide Acetate 500 mcg/ (Dextrose) 100.5 mls @ 10.05 mls/hr IV .Q10H [facility] Stop: 12/03/22 12:59 Last Admin: 11/03/22 15:37 Dose: 50 mcg/hr, 10.1 mls/hr Documented By: JORY Pantoprazole Sodium 40 mg/ (Dextrose) 100 mls @ 20 mls/hr IV Q5H [facility] Stop: 12/03/22 13:14 Last Admin: 11/03/22 15:38 Dose: 8 mg/hr, 20 mls/hr Documented By: JORY Potassium Chloride (Potassium Chloride Crtab 20 Meq Tabcr) 20 meq PO Q2H [facility] Stop: 11/03/22 16:31 Last Admin: 11/03/22 14:41 Dose: 20 meq Documented By: Admin: 11/03/22 14:41 Dose: 20 meq Documented By: JORY Thiamine HCl (Thiamine Hcl 100 Mg Tab) 100 mg PO TID [facility] Stop: 11/04/22 14:14 Last Admin: 11/03/22 14:46 Dose: 100 mg Documented By: JORY Venlafaxine HCl (Venlafaxine Hcl Xr 75 Mg Capxr) 225 mg PO QAM [facility] Stop: 12/03/22 14:14 Last Admin: 11/03/22 14:50 Dose: 225 mg Documented By: JORY Discontinued Medications Sodium Chloride (Nss) 500 mls @ 999 mls/hr IV .Q31M [facility] Stop: 11/03/22 10:15 Last Infusion: 11/03/22 13:52 Dose: 0 mls/hr Documented By: Admin: 11/03/22 10:58 Dose: 999 mls/hr Documented By: URSULA Pantoprazole Sodium (Protonix Bolus/Drip) 0 mls @ 1 mls/hr IV ONE STA Stop: 11/03/22 10:22 Last Admin: 11/03/22 13:53 Dose: Not Given Documented By: JORY Pantoprazole Sodium 40 mg/ (Dextrose) 100 mls @ 20 mls/hr IV Q5H [facility] Stop: 12/03/22 10:44 Last Infusion: 11/03/22 13:53 Dose: 0 mg/hr, 0 mls/hr Documented By: Admin: 11/03/22 11:18 Dose: 8 mg/hr, 20 mls/hr Documented By: URSULA Pantoprazole Sodium 80 mg/ (Dextrose) 120 mls @ 400 mls/hr IV NOW ONE Stop: 11/03/22 10:38 Last Infusion: 11/03/22 11:19 Dose: 0 mls/hr Documented By: Admin: 11/03/22 10:58 Dose: 400 mls/hr Documented By: URSULA Thiamine HCl 500 mg/ Sodium (Chloride) 55 mls @ 220 mls/hr IV NOW STA Stop: 11/03/22 12:03 Last Infusion: 11/03/22 14:46 Dose: 0 mls/hr Documented By: Admin: 11/03/22 14:29 Dose: 220 mls/hr Documented By: JORY Influenza Virus Vaccine (Influenza Vaccine High Dose Pf 65+ 0.7 Ml Syr) 0.7 ml IM .ONCE ONE Stop: 11/03/22 14:09 Last Admin: 11/03/22 14:31 Dose: Not Given Documented By: JORY Pneumococcal Polyvalent Vaccine (Pneumococcal Polysaccharides 25 Mcg/0.5 Ml Vial/Syr) 25 mcg IM .ONCE ONE Stop: 11/03/22 14:09 Last Admin: 11/03/22 14:31 Dose: Not Given Documented By: JORY Imaging Data Radiologist's Impression: Head CT 11/03/22 09:[address] DOSE: 614.27 mGy.cm HISTORY: confusion TECHNIQUE: Multiaxial CT images of the head were performed without the use of intravenous contrast. Automated exposure control was utilized for this study. A dose lowering technique was utilized adhering to the principles of ALARA. Comparison: Head CT 03/26/2021. Findings: The paranasal sinuses and mastoid air cells are clear. The calvarium and skull base are intact. There is no mass, hematoma, midline shift, acute infarct. White matter hypodensity is nonspecific but suggestive of microvascular ischemic change. The ventricles and sulci demonstrate mild age-related involutional changes. Impression: No significant change compared to the prior study. No acute intracranial abnormality. ACT 112: Negative or not required by law. Electronically signed by: Jose Barriga M.D. 11/03/2022 10:30 AM Chest X-Ray 11/03/22 09:42 XR chest 1V portable HISTORY: weakness COMPARISON: Chest 05/30/2022. FINDINGS: There are low lung volumes. The cardiac silhouette remains top normal in size. The lungs are clear. Cervical spinal fusion hardware is again noted. Degenerative changes within the shoulders. No evidence for pulmonary edema. Calcifications within the aortic knob. Right paratracheal fullness remain stable and is likely due to the normal vascular structures. IMPRESSION: No significant change compared to the prior study. No acute process. ACT 112: Negative or not required by law. Electronically signed by: Jose Barriga M.D. 11/03/2022 11:01 AM Discharge Plan Visit Data Chief Complaint: Urinary Symptoms ED Provider: Brenden Magana Discharge Problem: Symptomatic anemia, Acute GI bleeding, Elevated troponin Patient Disposition: Admitted As Inpatient Discharge Instructions Interventions: ED Discharge Assessment Last Done: 11/03/22 13:41
[2022-11-03] MEDS ORDERED: SODIUM CHLORIDE 0.9% 500 ML IV SCH (09:45)
[2022-11-03 10:21] LABS: Hematocrit (blood only) 21.2 % (40.1-51.0); Hemoglobin 6.9 g/dl (14.0-18.0); Mean Corpuscular Hemoglobin 28.3 pg (25.0-34.0); Mean Corpuscular Hgb Conc 32.5 g/dL (32.0-36.0); Mean Corpuscular Volume 86.9 fL (80.0-100.0); Mean Platelet Volume 10.6 fL (9.4-12.4); Platelet Count 139 K/uL (130-400); RDW Coefficient of Variation 15.3 % (11.5-14.5); Red Blood Count 2.44 M/uL (4.63-6.08); White Blood Count 4.74 K/ul (4.8-10.8)
[2022-11-03] MEDS ORDERED: PANTOprazole 80 MG in DEXTROSE 5% 100 ML IV ONE (10:21)
[2022-11-03] MEDS ORDERED: PANTOPRAZOLE BOLUS/DRIP 1 EACH IV STA (10:21)
[2022-11-03] MEDS ORDERED: SODIUM CHLORIDE 0.9% 250 ML IV PRN ×2 (10:26→14:37)
--- NOTE | 2022-11-03 10:31 | CT Scan Report ---
HEAD CT NONCONTRAST CT DOSE: 614.27 mGy.cm HISTORY: confusion TECHNIQUE: Multiaxial CT images of the head were performed without the use of intravenous contrast. A utomated exposure control was utilized for this study. A dose lowering technique was utilized adheri ng to the principles of ALARA. Comparison: Head CT 03/26/2021. Findings: The paranasal sinuses and mastoid air cells are clear. The calvarium and skull base are int act. There is no mass, hematoma, midline shift, acute infarct. White matter hypodensity is nonspecifi c but suggestive of microvascular ischemic change. The ventricles and sulci demonstrate mild age-rela tone involutional changes. Impression: No significant change compared to the prior study. No acute intracranial abnormality. ACT 112: Negative or not required by law. Electronically signed by: Jose Barriga M.D. 11/03/2022 10:30 AM
[2022-11-03 10:32] LABS: Appearance Urine Clear (Clear); Bilirubin Urine Negative (Negative); Blood Urine Negative (Negative); Color Urine Yellow; Glucose Urine UA Negative (Negative); Ketones Urine Trace (Negative); Leukocyte Esterase Urine Negative (Negative); Nitrite Urine Negative (Negative); Protein Urine Negative (Negative); Specific Gravity Urine 1.013 (1.000-1.030); Urobilinogen Urine Positive (Negative); pH Urine 8.5 (4.5-7.5)
[2022-11-03 10:32] LABS: Alanine Aminotransferase 24 U/L (7-52); Albumin Globulin Ratio 1.5 (0.9-2); Albumin Level 3.6 gm/dl (3.4-5.0); Alkaline Phosphatase 83 U/L (34-104); Anion Gap 10 (3-11); Aspartate Aminotransferase 36 U/L (13-39); BUN Creatinine Ratio 32.5 (10-20); Bilirubin,Total 0.9 mg/dl (0.2-1.0); Blood Urea Nitrogen 26 mg/dl (6-23); Calcium 9.3 mg/dl (8.5-10.1); Carbon Dioxide 24 mmol/L (21-32); Chloride 107 mmol/L (98-107); Est GFR (African American) 97.8 ml/min; Est GFR (Non-African American) 84.4 ml/min; Globulin 2.4 gm/dl (2.5-4.0); Glucose 154 mg/dl (70-99(Fasting)); Magnesium 1.3 mg/dl (1.7-2.4); Potassium 3.2 mmol/L (3.5-5.1); Sodium 141 mmol/L (136-145)
[2022-11-03 10:34] LABS: Anisocytosis Present; Basophils # (auto) 0.02 K/uL (0-0.2); Basophils % (auto) 0.4 %; Echinocytes 1+; Eosinophils # (auto) 0.03 K/uL (0-0.50); Eosinophils % (auto) 0.6 %; Hypochromasia Present; Immature Granulocytes # (auto) 0.01 K/uL (0.00-0.02); Immature Granulocytes % (auto) 0.2 %; Lymphocytes # (auto) 1.19 K/uL (1.2-3.4); Lymphocytes % (auto) 25.1 %; Monocytes # (auto) 0.55 K/uL (0.24-0.82); Monocytes % (auto) 11.6 %; Neutrophils # (auto) 2.94 K/uL (1.4-6.5); Neutrophils % (auto) 62.1 %
[2022-11-03 10:37] LABS: Troponin I High Sensitivity 24.6 pg/ml (0-20)
[2022-11-03 10:43] LABS: INR 1.3 (0.9-1.1); Prothrombin Time 13.4 Seconds (9.0-12.0)
[2022-11-03] MEDS ORDERED: PANTOprazole 40 MG in DEXTROSE 5% 100 ML IV SCH (10:45)
[2022-11-03 10:46] LABS: Thyroid Stimulating Hormone 5.103 uIu/ml (0.300-4.500)
--- NOTE | 2022-11-03 11:02 | XRay Report ---
XR chest 1V portable HISTORY: weakness COMPARISON: Chest 05/30/2022. FINDINGS: There are low lung volumes. The cardiac silhouette remains top normal in size. The lungs ar e clear. Cervical spinal fusion hardware is again noted. Degenerative changes within the shoulders. N o evidence for pulmonary edema. Calcifications within the aortic knob. Right paratracheal fullness re main stable and is likely due to the normal vascular structures. IMPRESSION: No significant change compared to the prior study. No acute process. ACT 112: Negative or not required by law. Electronically signed by: Jose Barriga M.D. 11/03/2022 11:01 AM
--- NOTE | 2022-11-03 11:11 | History & Physical Report ---
Date of Service November 03, 2022 Assessment & Plan (1) Acute blood loss anemia: Plan: -Admit to med/tele -Patient is currently afebrile hemodynamically stable, and stable on RA -Patient found to have a Hgb of 6.9 and heme + stool in the ED today, most recent EGD shows gastritis and esophageal varices -Patient's states that he has been having issues with anemia for years and [facility] -Was started on Protonix bolus and drip in the ED, we started the patient on Ceftriaxone empirically for now x 48 hrs -GI consult placed, they recommended continue the Protonix drip and starting the Octreotide drip to be safe with his history of varices -Will keep NPO for now as GI is scheduling an EGD tomorrow -Will reassess volume status later to see if he will need to be on IV fluids overnight while NPO -Two large bore IV's have been placed -Patient was blood consented and ordered 2 units of PRBC's by the ED, will obtain post transfusion CBC after his second and monitor CBC q6h's overnight -Monitor on tele and pulse oximetry -Hold anticoagulation with his current GI bleed (2) Encephalopathy acute: Plan: -At this time the cause of his encephalopathy is unknown -Ammonia was noted to be WNL, CT of the head was negative for acute findings, the patient's states that he has had the same symptoms previously when he needs a blood transfusion -The patient is also a long-time alcoholic, still drinks 4-5 beers daily, last drink was on 10/31, Wernicek's encephalopathy is a possibility. -TSH was elevated but free T4 was WNL, no sings of infection as he is without a leukocytosis, UA is clean, and chest xray was clear. No other metabolic abnormalities to explain his mental status -Will give 500 mg IV thiamine now, give 100 mg PO TID tomorrow followed by 100 mg PO daily -Monitor mental status with adequate blood transfusion, if his mental status does not improve with the initial treatment would obtain an MRI of the brain for further assessment -Fall precautions ordered (3) Alcohol dependence: Plan: -Patient still drinking approximately 4-5 beers daily, last drink was on 10/31 -No overt signs of alcohol withdrawal at this time -Will start AWSS at risk protocol for now and monitor on tele (4) Elevated troponin: Plan: -Initial trop elevated at 32, patient is asymptomatic, likely related to deman from his current anemia -Patient with initial ECG with too much artifact for proper interpretation, will repeat another now -Will repeat another high sensitivity trop STAT and monitor on tele (5) Hypertension: Plan: -Stable -Continue amlodipine and propranolol for now as he is hypertenisve on admission -Monitor on tele (6) Depression: Plan: -Continue venlafaxine (7) Diabetes mellitus, type 2: Plan: -Hold metformin and alogliptin -Monitor BSH q6h while NPO, goal is 110-160 while NPO -Will start with 5 units lantus BID and correction factor of 50 with carb ratio of 15 (when he can eat) -Adjust regimen as needed (8) GERD (gastroesophageal reflux disease): Plan: -Continue IV protonix with GI bleed (9) Liver cirrhosis, alcoholic: Plan: -Stable, GI is following -Continue to monitor AM CMP and PT/INR (10) Hypercholesterolemia: Plan: -Continue statin (11) Hypokalemia: Plan: -Noted to be 3.2 in the ED -Will give 20 meq PO KCL q2h x 2 doses now -Mag also low at 1.3 -Low K and mag likely due to poor oral intake since 10/31 -Will replete both and monitor AM CMP and mag levels (12) Hypomagnesemia: Plan: -See hypokalemia Plan The patient was discussed with Dr. Wilkes at the time of the admission History of Present Illness Chief Complaint: Confusion & UTI symptoms Primary Care Provider: IRISH Viveros Gary is an 82 year old male with a PMH of alcoholic cirrhosis, last EGD in 2021 showing grade 1 esophageal varices, gastritis, normal duodenum, multiple gastric polyps, and a small hiatal hernia, alcohol abuse, vestibular schwannoma cause imbalance, HTN, DM II, GERD, hypercholesterolemia, and previous C3-T1 cervicothoracic fusion in 2019 who presented to the [facility] ED on 11/03/22 via EMS for confusion and concern for possible UTI. In the ED the patient was found to be afebrile, hemodynamically stable, and stable on RA. Labs were remarkable for a WBC of 4.74, absolute neutrophil count of 2.94, hgb of 6.9 (down from 9.7 as of 09/21/2022), INR of 1.3, stable Cr of 0.8, elevated BUN of 26, sodium of 141, potassium of 3.2, mag of 1.3, calcium of 9.3, glucose of 154, ammonia of 44, LFTs all WNL, initial high sensitivity trop of 24.6, initial TSH of 5.1 with Free T4 WNL, UA not suggestive of UTI, Stool occult blood positive. CT of the head was read as "No significant change compared to the prior study. No acute intracranial abnormality.". Chest xray was read as "No significant change compared to the prior study. No acute process.". Prior to admission the patient was consented for blood and ordered 2 units PRBCs by the ED, started on started on a Protonix drip, and was given 500 mL NSS bolus. Per chart review, the patient's last colonoscopy was in 2020 and showed multiple small-mouthed diverticula in the sigmoid colon without other acute findings. At the time of the exam the patient was resting in bed in no acute distress. History was difficult to obtain due to the patient's current mental status. He is having a difficult time expressing what he wants to say. He is able to answer simple yes or no questions and denies any pain at the time of the exam, including chest pain. I was able to call his , Danita Briseno ([phone]) to get more oh the history and confirm his medications. She explains that the patient was in his normal state of health until Wednesday (10/31). She states that the patient started to experience the same word finding difficulties which were seen on exam today. She denies any other neurologic issues and states that he was still able to ambulate with his walker. She states that he has gotten like this before for his blood loss anemia. She states that the patient is followed for his anemia in the cancer center and they have given him iron infusions previously. She also states that when he has needed blood in the past this is how he presents. When asked, she states that the patient still drinks 4-5 beers daily, his last drink was on Wednesday (10/31). She states that he has not had any of his medications since 10/31 due to his altered mental status. She states that the patient had one episode of non-bloody emesis on 10/31 but has had no other episodes since. I spoke to her regarding code status, the patient is a Full Code and she is his primary medical decision maker if he cannot make decisions himself. Please refer to Dr. Wilkes's attestation for any changes to the treatment plan Allergies Allergy/AdvReac Type Severity Reaction Status Date / Time No Known Drug Allergies Allergy Unknown Verified 05/27/22 13:38 Home Medications Medication Instructions Recorded Confirmed Type atorvastatin 80 mg tablet 80 mg PO HS 06/13/19 11/03/22 History venlafaxine 75 mg capsule,extended 225 mg PO QAM 11/21/19 11/03/22 History release 24 hr metformin 1,000 mg tablet 1,000 mg PO BID #180 tabs 05/30/20 11/03/22 Rx alogliptin 25 mg tablet 25 mg PO QAM 08/02/20 11/03/22 History pantoprazole 40 mg tablet,delayed 40 mg PO BID #0 tabs 12/07/20 11/03/22 Rx release amlodipine 5 mg tablet 5 mg PO QAM 12/10/20 11/03/22 History propranolol 40 mg tablet 40 mg PO BID 12/10/20 11/03/22 History meclizine 25 mg tablet 25 mg PO BID PRN dizziness #20 tabs 03/13/21 11/03/22 Rx ondansetron 4 mg disintegrating 4 mg PO Q6H PRN Nausea And 03/26/21 11/03/22 Rx tablet Vomiting #30 tabs diclofenac sodium 1 % topical gel 2 g topical QID PRN Pain 05/13/21 11/03/22 History (Voltaren Arthritis Pain) lidocaine 5 % topical patch 1 patch topical DAILY PRN Pain 05/13/21 11/03/22 History (Lidoderm) ascorbic acid (vitamin C) 250 mg 250 mg PO QAM 08/20/21 11/03/22 History tablet cholecalciferol (vitamin D3) 25 25 mcg PO QAM 08/20/21 11/03/22 History mcg (1,000 unit) capsule ferrous sulfate 325 mg (65 mg 325 mg PO HS 08/20/21 11/03/22 History iron) tablet fluticasone propionate 50 2 spray intranasal DAILY #16 grams 11/25/21 11/03/22 Rx mcg/actuation nasal spray,suspension gabapentin 100 mg capsule 400 mg PO HS 12/01/21 11/03/22 History hydrocodone 10 mg-acetaminophen 1 tab PO BID PRN Pain 12/01/21 11/03/22 History 325 mg tablet bupropion HCl 150 mg tablet,12 hr 150 mg PO QAM 04/27/22 11/03/22 History sustained-release (Wellbutrin SR) Past Med/Surg History Medical History Abdominal ascites Acute pancreatitis Alcohol dependence Anxiety Bilateral primary osteoarthritis of knee Bilateral tinnitus Carpal tunnel syndrome Cervical spondylosis without myelopathy Depression Diabetes mellitus, type 2 NIDDM Esophageal varices Grade 1 small varices in the lower third of the esophagus per 09/30/20 EGD, undergoes routine surveillance EGDs Fatty liver GERD (gastroesophageal reflux disease) controlled Hiatal hernia History of gastric polyp History of prostate cancer s/p prostatectomy (1998), no chemo/no radiation Hypercholesterolemia Hypertension 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 Left knee DJD Left knee DJD Liver cirrhosis, alcoholic hx small esophageal varices (09/2020) under surveillance, no banding indicated on most recent EGD, follows with [facility], stable Lumbar stenosis Neck pain with history of cervical spinal surgery Restless legs syndrome Sensorineural hearing loss (SNHL) of both ears Thrombocytopenia hx cirrhosis, chronic mild thrombocytopenia Surgical History History of biopsy pancreatic mass biopsy on 07/01/2020 - benign History of colonoscopy (06/2018) History of cystoscopy d/t incontinence History of esophagogastroduodenoscopy (EGD) (11/2019) 11/30/19: MAC sedation at [facility] History of laminectomy X3 History of prostatectomy History of right inguinal hernia repair History of tooth extraction Hx of cervical spine surgery (12/2019) C3-C6 laminectomy, C3-T1 PCF Hx of inguinal hernia surgery (09/14/19) Open Right Inguinal Hernia Repair with Mesh: 09/14/19: LMA#5 at [facility] S/P total knee arthroplasty 11/12/20 Dr. Khoa Fink- Right TKA Status post right knee replacement Family History Sister Family history of diabetes mellitus Breast cancer Mother Colorectal cancer Stroke Hypertension Brother Prostate cancer Colorectal cancer Father Myocardial infarction Son Thyroid disease Mother Family history of diabetes mellitus Sister Family history of diabetes mellitus Sister Family history of diabetes mellitus Other Cancer No family history of adverse response to anesthesia No family history of allergies No family history of bleeding disorder Denies family history of Ovarian cancer Hearing loss Heart disease Asthma Social History Smoking Status: Never smoker Tobacco Type: Smokeless Tobacco (Dip or Chew) Second Hand Exposure: No; Hx Alcohol Use: Yes Alcohol type: beer Alcohol Intake Frequency: 4 or More x per/Week Alcohol Intake Frequency Comment: at night 4-5 beers a night Hx Substance Use: Yes Prescribed Medications: Opiates Preferred Language: Colombian Communication Ability: Effective Visual Impairment: No Limitations Hearing Ability: Use of Hearing Aid Seafood Farmer Required: No Beliefs That Will Affect Care: None marital status: Current Living Situation: Spouse current occupational status: retired Feels Safe at Home: Yes Safety Concerns: Feels Safe At This Time Childhood Exposure to Second-Hand Smoke: No Diet Comment: regular caffeine: No during the past year weight has: remained stable Dental Care, Regularly: No Physical Activity Frequency: Daily Physical Activity Frequency Comment: limited by physical condition Seatbelt Use: always Sunscreen Use: No Assistive Devices: Hearing Aid - Bilateral Review of Systems Review of Systems: Denies current fever, chills, headache, changes in vision, hearing, taste, and smell, chest pain, SOB, cough, abdominal pain, nausea, diarrhea, hematemesis, melena, dysuria, hematuria, and recent falls. All systems have been reviewed and are otherwise negative. Physical Exam Physical Exam: Physical Exam: General: In no acute distress, pleasantly confused at the time of the exam, good hygiene, non-toxic appearing HEENT: Normocephalic, atraumatic, no scleral icterus, pupils around round, symmetrical, and reactive to light, moist mucus membranes, trachea midline, no thyromegaly Chest/Pulm: No respiratory distress, symmetrical chest expansion, clear breath sounds throughout Cardiac: RRR, systolic murmur noted Abdomen: Negative for ascites and bruising, normoactive bowel sounds, soft, non-tender to palpation throughout Musculoskeletal: Symmetrical and without signs of acute trauma, upper and lower extremities with full ROM, no atrophy, spasticity, or flaccidity Extremities: Radial, dorsalis pedis, and posterior tibial pulses are intact and symmetrical, no edema noted in the BL LE's Skin: Warm, dry, no rashes , lesions, or scars noted Neuro: Alert, oriented to person only, pleasantly confused, patient has difficulty verbalizing his thoughts and becomes visibly frustrated at times, CN II-XII tested and intact, no tremor noted Psych: No acute distress, calm/pleasantly confused and cooperative during the exam Results & Data Results & Data ([facility]) Vital Signs (Past 12 Hours) Vital Signs Temp Pulse Resp BP Pulse Ox O2 Del Method 11/03/22 09:42 95 Room Air 11/03/22 09:17 36.8 C 91 H 20 166/85 H 95 Room Air Laboratory Results Abnormal lab results 11/03/22 11/03/22 11/03/22 Range/Units 09:54 09:54 09:54 WBC 4.74 L (4.8-10.8) K/ul RBC 2.44 L (4.63-6.08) M/uL Hgb 6.9 L* (14.0-18.0) g/dl Hct 21.2 L (40.1-51.0) % RDW Std Deviation 48.0 H (36.4-46.3) fL RDW Coeff of Elliot 15.3 H (11.5-14.5) % Lymph # (Auto) 1.19 L (1.2-3.4) K/uL PT 13.4 H (9.0-12.0) Seconds INR 1.3 H (0.9-1.1) Potassium 3.2 L (3.5-5.1) mmol/L BUN 26 H (6-23) mg/dl BUN/Creatinine Ratio 32.5 H (10-20) Glucose 154 H (70-99(Fasting)) mg/dl Magnesium 1.3 L (1.7-2.4) mg/dl Troponin I High Sens 24.6 H (0-20) pg/ml Globulin 2.4 L (2.5-4.0) gm/dl TSH (0.300-4.500) uIu/ml Urine pH (4.5-7.5) Urine Ketones (Negative) Urine Urobilinogen (Negative) POC Stool Occult Blood (Negative) Crossmatch 11/03/22 11/03/22 11/03/22 Range/Units 09:54 09:59 10:30 WBC (4.8-10.8) K/ul RBC (4.63-6.08) M/uL Hgb (14.0-18.0) g/dl Hct (40.1-51.0) % RDW Std Deviation (36.4-46.3) fL RDW Coeff of Elliot (11.5-14.5) % Lymph # (Auto) (1.2-3.4) K/uL PT (9.0-12.0) Seconds INR (0.9-1.1) Potassium (3.5-5.1) mmol/L BUN (6-23) mg/dl BUN/Creatinine Ratio (10-20) Glucose (70-99(Fasting)) mg/dl Magnesium (1.7-2.4) mg/dl Troponin I High Sens (0-20) pg/ml Globulin (2.5-4.0) gm/dl TSH 5.103 H (0.300-4.500) uIu/ml Urine pH 8.5 H (4.5-7.5) Urine Ketones Trace H (Negative) Urine Urobilinogen Positive H (Negative) POC Stool Occult Blood Positive A (Negative) Crossmatch 11/03/22 Range/Units 10:56 WBC (4.8-10.8) K/ul RBC (4.63-6.08) M/uL Hgb (14.0-18.0) g/dl Hct (40.1-51.0) % RDW Std Deviation (36.4-46.3) fL RDW Coeff of Elliot (11.5-14.5) % Lymph # (Auto) (1.2-3.4) K/uL PT (9.0-12.0) Seconds INR (0.9-1.1) Potassium (3.5-5.1) mmol/L BUN (6-23) mg/dl BUN/Creatinine Ratio (10-20) Glucose (70-99(Fasting)) mg/dl Magnesium (1.7-2.4) mg/dl Troponin I High Sens (0-20) pg/ml Globulin (2.5-4.0) gm/dl TSH (0.300-4.500) uIu/ml Urine pH (4.5-7.5) Urine Ketones (Negative) Urine Urobilinogen (Negative) POC Stool Occult Blood (Negative) Crossmatch See Detail Diagnostic Findings Head CT 11/03/22 09:[address] DOSE: 614.27 mGy.cm HISTORY: confusion TECHNIQUE: Multiaxial CT images of the head were performed without the use of intravenous contrast. Automated exposure control was utilized for this study. A dose lowering technique was utilized adhering to the principles of ALARA. Comparison: Head CT 03/26/2021. Findings: The paranasal sinuses and mastoid air cells are clear. The calvarium and skull base are intact. There is no mass, hematoma, midline shift, acute in farct. White matter hypodensity is nonspecific but suggestive of microvascular ischemic change. The ventricles and sulci demonstrate mild age-related involutional changes. Impression: No significant change compared to the prior study. No acute intracranial abnormality. ACT 112: Negative or not required by law. Electronically signed by: Jose Barriga M.D. 11/03/2022 10:30 AM Chest X-Ray 11/03/22 09:42 XR chest 1V portable HISTORY: weakness COMPARISON: Chest 05/30/2022. FINDINGS: There are low lung volumes. The cardiac silhouette remains top normal in size. The lungs are clear. Cervical spinal fusion hardware is again noted. Degenerative changes within the shoulders. No evidence for pulmonary edema. Calcifications within the aortic knob. Right paratracheal fullness remain stable and is likely due to the normal vascular structures. IMPRESSION: No significant change compared to the prior study. No acute process. ACT 112: Negative or not required by law. Electronically signed by: Jose Barriga M.D. 11/03/2022 11:01 AM ECG Additional Comments: Poor data quality, interpretation may be adversely affected Undetermined rhythm ST & T wave abnormality, consider inferior ischemia ST & T wave abnormality, consider anterolateral ischemia Abnormal ECG When compared with ECG of 30-MAY-2022 02:08, Current undetermined rhythm precludes rhythm comparison, needs review Code Status & VTE Plan Code Status Full code VTE Prophylaxis Plan VTE Prophylaxis will be ordered: Yes Supervising Physician Co-Signing Physician Notes Patient seen and examined, chart reviewed, case discussed with Madhav Maradiaga PA-C and I agree with the assessment and plan as above except as otherwise noted Labs and images reviewed Gary is an 82-year-old male with a past medical history of chronic alcohol use, type II DM, liver cirrhosis 2/2 alcohol, hyperlipidemia, and chronic anemia followed as outpatient at the [facility] who presents with confusion, anemia, and melena. Patient has had similar presentations of confusion with symptomatic anemia in the past. Hemoglobin on admission is 6.9. At bedside assessment he is pleasant, oriented to name only, and denies any pain. Is a poor historian. He does not have epigastric tenderness or abdominal tenderness. Regular tachycardia, BP is normal. Trace ankle edema. Patient with no questions or concerns at bedside. Given high alcohol use will treat with thiamine protocol and placed on KAI S. We will treat for symptomatic anemia with suspected upper GI bleed, transfusion pending and patient received IV bolus and will now transition to PPI twice daily. GI consulted. History of liver disease with varices, octreotide has been started for upper GI bleed with known history of varices. Is covered for prophylaxis with Rocephin. No chest pain, the elevated troponin which is trended. Agree with management as noted above. PG Care Time/CCT Total # of Minutes Spent Total Time Spent with Patient: Total time spent is greater than 50% in coordination of care (as documented) at patient's floor/unit and/or counseling patient: [place] [id number] INT INP/OBS CARE 3/75MIN Patient Type Established Medical Decision Making High Complexity Diagnoses Acute blood loss anemia D62 Encephalopathy acute G93.40 Alcohol dependence F10.20 Elevated troponin R77.8 Hypertension I10 Hypertension type: essential hypertension Depression F32.9 Diabetes mellitus, type 2 E11.9 Chronic kidney disease stage 3 subtype: stage 3a (GFR 45-59) Diabetes mellitus terminal supervisor insulin use: without terminal supervisor use GERD (gastroesophageal reflux disease) K21.9 Liver cirrhosis, alcoholic K70.30 Ascites presence: without ascites Hypercholesterolemia E78.00 Hypokalemia E87.6 Hypomagnesemia E83.42 (1) Diabetes mellitus, type 2 Chronic kidney disease stage 3 subtype: stage 3a (GFR 45-59) Diabetes mellitus terminal supervisor insulin use: without care home use (2) Liver cirrhosis, alcoholic Ascites presence: without ascites Qualified Code(s): K70.30 - Alcoholic cirrhosis of liver without ascites (3) Hypertension Hypertension type: essential hypertension Qualified Code(s): I10 - Essential (primary) hypertension
[2022-11-03 11:22] LABS: T4 Free Thyroxine 1.51 ng/dl (0.61-1.60)
[2022-11-03] MEDS ORDERED: PANTOprazole 40 MG in SYRINGE 0 ML IV SCH (11:35)
[2022-11-03] MEDS ORDERED: LORazepam 2 MG/1 ML VIAL IV PRN (11:47)
[2022-11-03] MEDS ORDERED: THIAMINE HCL 500 MG in SODIUM CHLORIDE 0.9% 50 ML IV STA (11:49)
--- NOTE | 2022-11-03 12:33 | Gastrointestinal Consultation ---
Date of Consultation November 03, 2022 Assessment & Plan (1) Cirrhosis: (2) Iron deficiency anemia: (3) Heme + stool: Plan Discussed with Dr. Nava who advised on plan. - continue protonix drip. - will start octreotide drip. - I spoke with patients and she is agreeable to having an egd done to evaluate heme positive stools and anemia. will plan for tomorrow. - follow hgb/hct and transfused as needed. ordered for 2 units and currently getting 1. Supervising Physician Co-Signing Physician Notes Agree with TIMMY Puri as above Patient is confused and unable to answer questions Abd: Soft, NT, ND, +BS Recommend starting Pantoprazole gtt and Octreotide gtt Will need transfused and will plan on EGD in AM on 11/04/22 History of Present Illness Reason for Consultation: history of cirrhosis, GIB, anemia Requesting Physician: Madhav Maradiaga PA-C History of Present Illness Patient is an 82 year old male with past medical history of cirrhosis, esophageal varices, gastritis, normal duodenum, multiple gastric polyps, and a small hiatal hernia, alcohol abuse, vestibular schwannoma cause imbalance, HTN, DM II, GERD, hypercholesterolemia, and previous C3-T1 cervicothoracic fusion in 2019 who presented to the [facility] ED today 11/03/22 via EMS for confusion and concern for possible UTI. In ED his hgb came back at 6.9 and his stools tested heme positive. Patient offers no meaningful history to me. He is alert but he is not oriented. He denies all GI ROS. I called and spoke with his , Danita Briseno ([phone]) who provides history. She tells me he has been having increasing confusion, nausea, weakness, and lower abdominal pain. He has 1 bowel movement daily that is dark but he does use oral iron. no brbpr. He had one episode of vomiting the past few days but no hematemesis. no other gi concerns per patient or his . EGD 11/2020 esophageal varices, small hiatal hernia, multiple gastric polyps. Colonoscopy 05/07/21 diverticulosis. Labs were remarkable for a WBC of 4.74, absolute neutrophil count of 2.94, hgb of 6.9 (down from 9.7 as of 09/21/2022), INR of 1.3, stable Cr of 0.8, elevated BUN of 26, sodium of 141, potassium of 3.2, mag of 1.3, calcium of 9.3, glucose of 154, ammonia of 44, LFTs all WNL, initial high sensitivity trop of 24.6, initial TSH of 5.1 (free T4 is in process), UA not suggestive of UTI, Stool occult blood positive. CT of the head was read as "No significant change compared to the prior study. No acute intracranial abnormality.". Chest xray was read as "No significant change compared to the prior study. No acute process.". Prior to admission the patient was consented for blood and ordered 2 units PRBCs by the ED which has been started, started on started on a Protonix drip, and was given 500 mL NSS bolus. Allergies Allergy/AdvReac Type Severity Reaction Status Date / Time No Known Drug Allergies Allergy Unknown Verified 05/27/22 13:38 Home Medications Medication Instructions Recorded Confirmed Type atorvastatin 80 mg tablet 80 mg PO HS 06/13/19 11/03/22 History venlafaxine 75 mg capsule,extended 225 mg PO QAM 11/21/19 11/03/22 History release 24 hr metformin 1,000 mg tablet 1,000 mg PO BID #180 tabs 05/30/20 11/03/22 Rx alogliptin 25 mg tablet 25 mg PO QAM 08/02/20 11/03/22 History pantoprazole 40 mg tablet,delayed 40 mg PO BID #0 tabs 12/07/20 11/03/22 Rx release amlodipine 5 mg tablet 5 mg PO QAM 12/10/20 11/03/22 History propranolol 40 mg tablet 40 mg PO BID 12/10/20 11/03/22 History meclizine 25 mg tablet 25 mg PO BID PRN dizziness #20 tabs 03/13/21 11/03/22 Rx ondansetron 4 mg disintegrating 4 mg PO Q6H PRN Nausea And 03/26/21 11/03/22 Rx tablet Vomiting #30 tabs diclofenac sodium 1 % topical gel 2 g topical QID PRN Pain 05/13/21 11/03/22 History (Voltaren Arthritis Pain) lidocaine 5 % topical patch 1 patch topical DAILY PRN Pain 05/13/21 11/03/22 History (Lidoderm) ascorbic acid (vitamin C) 250 mg 250 mg PO QAM 08/20/21 11/03/22 History tablet cholecalciferol (vitamin D3) 25 25 mcg PO QAM 08/20/21 11/03/22 History mcg (1,000 unit) capsule ferrous sulfate 325 mg (65 mg 325 mg PO HS 08/20/21 11/03/22 History iron) tablet fluticasone propionate 50 2 spray intranasal DAILY #16 grams 11/25/21 11/03/22 Rx mcg/actuation nasal spray,suspension gabapentin 100 mg capsule 400 mg PO HS 12/01/21 11/03/22 History hydrocodone 10 mg-acetaminophen 1 tab PO BID PRN Pain 12/01/21 11/03/22 History 325 mg tablet bupropion HCl 150 mg tablet,12 hr 150 mg PO QAM 04/27/22 11/03/22 History sustained-release (Wellbutrin SR) Patient History Medical History Abdominal ascites Acute pancreatitis Alcohol dependence Anxiety Bilateral primary osteoarthritis of knee Bilateral tinnitus Carpal tunnel syndrome Cervical spondylosis without myelopathy Depression Diabetes mellitus, type 2 NIDDM Esophageal varices Grade 1 small varices in the lower third of the esophagus per 09/30/20 EGD, undergoes routine surveillance EGDs Fatty liver GERD (gastroesophageal reflux disease) controlled Hiatal hernia History of gastric polyp History of prostate cancer s/p prostatectomy (1998), no chemo/no radiation Hypercholesterolemia Hypertension 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 Left knee DJD Left knee DJD Liver cirrhosis, alcoholic hx small esophageal varices (09/2020) under surveillance, no banding indicated on most recent EGD, follows with [facility], stable Lumbar stenosis Neck pain with history of cervical spinal surgery Restless legs syndrome Sensorineural hearing loss (SNHL) of both ears Thrombocytopenia hx cirrhosis, chronic mild thrombocytopenia Surgical History History of biopsy pancreatic mass biopsy on 07/01/2020 - benign History of colonoscopy (06/2018) History of cystoscopy d/t incontinence History of esophagogastroduodenoscopy (EGD) (11/2019) 11/30/19: MAC sedation at [facility] History of laminectomy X3 History of prostatectomy History of right inguinal hernia repair History of tooth extraction Hx of cervical spine surgery (12/2019) C3-C6 laminectomy, C3-T1 PCF Hx of inguinal hernia surgery (09/14/19) Open Right Inguinal Hernia Repair with Mesh: 09/14/19: LMA#5 at [facility] S/P total knee arthroplasty 11/12/20 Dr. Khoa Fink- Right TKA Status post right knee replacement Family History Sister Family history of diabetes mellitus Breast cancer Mother Colorectal cancer Stroke Hypertension Brother Prostate cancer Colorectal cancer Father Myocardial infarction Son Thyroid disease Mother Family history of diabetes mellitus Sister Family history of diabetes mellitus Sister Family history of diabetes mellitus Other Cancer No family history of adverse response to anesthesia No family history of allergies No family history of bleeding disorder Denies family history of Ovarian cancer Hearing loss Heart disease Asthma Social History Smoking Status: Never smoker Tobacco Type: Smokeless Tobacco (Dip or Chew) Second Hand Exposure: No; Hx Alcohol Use: Yes Alcohol type: beer Alcohol Intake Frequency: 4 or More x per/Week Alcohol Intake Frequency Comment: at night 4-5 beers a night Hx Substance Use: Yes Prescribed Medications: Opiates Preferred Language: Urdu Communication Ability: Effective Visual Impairment: No Limitations Hearing Ability: Use of Hearing Aid Global Clinical Leader Required: No Beliefs That Will Affect Care: None marital status: Current Living Situation: Spouse current occupational status: retired Feels Safe at Home: Yes Safety Concerns: Feels Safe At This Time Childhood Exposure to Second-Hand Smoke: No Diet Comment: regular caffeine: No during the past year weight has: remained stable Dental Care, Regularly: No Physical Activity Frequency: Daily Physical Activity Frequency Comment: limited by physical condition Seatbelt Use: always Sunscreen Use: No Assistive Devices: Hearing Aid - Bilateral Review of Systems Review of Systems: Unobtainable due to mental health condition Physical Exam Constitutional: WD/WN, vitals as above Respiratory: normal respiratory effort, lungs clear to auscultation Cardiovascular: RRR, no murmur, no edema Gastrointestinal (Abdomen): normal bowel sounds, soft, nontender, no hepatosplenomegaly Skin: no rashes, warm and dry Psychiatric: Orientation: alert but he is not oriented Results & Data ([facility]) Vital Signs (Past 12 Hours) Vital Signs Temp Pulse Pulse Resp BP BP Pulse Ox 11/03/22 12:00 109 H 16 140/79 95 11/03/22 12:15 36.7 C 94 H 18 140/79 95 11/03/22 09:42 95 11/03/22 09:17 36.8 C 91 H 20 166/85 H 95 O2 Del Method 11/03/22 12:00 11/03/22 12:15 11/03/22 09:42 Room Air 11/03/22 09:17 Room Air PG Care Time/CCT Total # of Minutes Spent Total Time Spent with Patient: Total time spent is greater than 50% in coordination of care (as documented) at patient's floor/unit and/or counseling patient: Coding Level of Care Code 25792 INT INP/OBS CARE 2/55MIN Diagnoses Cirrhosis K74.60 Iron deficiency anemia D50.9 Heme + stool R19.5
[2022-11-03] MEDS ORDERED: STAT IV STA (12:43)
[2022-11-03] MEDS ORDERED: CARBOHYDRATES FOR HYPOGLYCEMIA PO PRN (13:48)
[2022-11-03] MEDS ORDERED: INSULIN ASPART PER UNIT SC SCH (13:48)
[2022-11-03] MEDS ORDERED: DEXTROSE 50% 50 ML SYRINGE IV PRN (13:48)
[2022-11-03] MEDS ORDERED: GLUCOSE 10 TAB/TUBE PO PRN (13:48)
[2022-11-03] MEDS ORDERED: GLUCAGON FOR INJ 1 MG VIAL SQ PRN (13:48)
[2022-11-03] MEDS ORDERED: GLUCOSE 40% GEL 15 GM TUBE PO PRN (13:48)
[2022-11-03] MEDS ORDERED: PNEUMOCOCCAL POLYSACCHARIDES 25 MCG/0.5 ML VIAL/SYR IM ONE (14:08)
[2022-11-03] MEDS ORDERED: INFLUENZA VACCINE HIGH DOSE PF 65+ 0.7 ML SYR IM ONE (14:08)
[2022-11-03] MEDS: cefTRIAXone SODIUM 1,000 MG in DEXTROSE 5% AD-VAN 50 ML IV SCH (14:30)
--- NOTE | 2022-11-03 14:37 | Electrocardiogram Report ---
Test Reason : Blood Pressure : / mmHG Vent. Rate : 093 BPM Atrial Rate : 094 BPM P-R Int : 000 ms QRS Dur : 084 ms QT Int : 412 ms P-R-T Axes : 000 -25 127 degrees QTc Int : 512 ms Poor data quality, interpretation may be adversely affected Sinus rhythm Abnormal ECG Confirmed by Franklyn Norris ([id number]) on 11/03/2022 2:37:28 PM Referred By: REFERRED SELF Confirmed By:Sravan Norris
[2022-11-03] MEDS: POTASSIUM CHLORIDE CRTAB 20 MEQ TABCR PO SCH ×2 (14:41→17:10)
[2022-11-03] MEDS: THIAMINE HCL 100 MG TAB PO SCH ×2 (14:46→20:32)
[2022-11-03] MEDS: VENLAFAXINE HCL XR 75 MG CAPXR PO SCH (14:50)
[2022-11-03] MEDS: amLODIPine BESYLATE 5 MG TAB PO SCH (14:51)
[2022-11-03] MEDS: buPROPion SR 150 MG TABCR PO SCH (14:51)
[2022-11-03] MEDS: OCTREOTIDE ACETATE 500 MCG in DEXTROSE 5% 100 ML IV SCH (15:37)
[2022-11-03] MEDS: PANTOprazole 40 MG in DEXTROSE 5% 100 ML IV SCH ×2 (15:38→20:37)
[2022-11-03] MEDS: MAGNESIUM SULFATE / D5W 1 GM/100 ML BAG IV SCH ×3 (15:39→19:19)
[2022-11-03] MEDS: INSULIN ASPART PER UNIT SC SCH (19:21)
[2022-11-03] MEDS: PROPRANOLOL HCL 20 MG TAB PO SCH (20:32)
[2022-11-03] MEDS: ATORVASTATIN 40 MG TAB PO SCH (20:32)
[2022-11-03] MEDS: FERROUS SULFATE 325 MG TAB PO SCH (20:32)
[2022-11-03] MEDS ORDERED: GABAPENTIN 400 MG CAP PO SCH (21:00)
[2022-11-03] MEDS: LANTUS PER UNIT CHARGE SQ SCH (21:25)
[2022-11-03 22:13] LABS: Hematocrit (blood only) 26.2 % (40.1-51.0); Hemoglobin 9.1 g/dl (14.0-18.0); Mean Corpuscular Hgb Conc 34.7 g/dL (32.0-36.0); Mean Corpuscular Volume 83.4 fL (80.0-100.0); Mean Platelet Volume 10.1 fL (9.4-12.4); Platelet Count 105 K/uL (130-400); RDW Coefficient of Variation 14.7 % (11.5-14.5); RDW Standard Deviation 44.1 fL (36.4-46.3); Red Blood Count 3.14 M/uL (4.63-6.08); White Blood Count 3.44 K/ul (4.8-10.8)
[2022-11-04] MEDS: INSULIN ASPART PER UNIT SC SCH ×5 (00:04→22:28)
[2022-11-04] MEDS: OCTREOTIDE ACETATE 500 MCG in DEXTROSE 5% 100 ML IV SCH ×2 (00:10→11:21)
[2022-11-04] MEDS: PANTOprazole 40 MG in DEXTROSE 5% 100 ML IV SCH ×4 (01:36→21:07)
[2022-11-04] MEDS ORDERED: Nursing to Pharmacy Communication SCH ×2 (01:45→19:45)
[2022-11-04 01:56] LABS: Hematocrit (blood only) 25.3 % (40.1-51.0); Hemoglobin 8.7 g/dl (14.0-18.0); Mean Corpuscular Hemoglobin 28.8 pg (25.0-34.0); Mean Corpuscular Hgb Conc 34.4 g/dL (32.0-36.0); Mean Corpuscular Volume 83.8 fL (80.0-100.0); Mean Platelet Volume 9.7 fL (9.4-12.4); Platelet Count 114 K/uL (130-400); RDW Coefficient of Variation 14.9 % (11.5-14.5); RDW Standard Deviation 44.5 fL (36.4-46.3); Red Blood Count 3.02 M/uL (4.63-6.08); White Blood Count 4.27 K/ul (4.8-10.8)
[2022-11-04 01:57] LABS: Platelet Estimate Decreased (Normal)
[2022-11-04] MEDS: ACETAMINOPHEN 325 MG TAB PO PRN (02:30)
[2022-11-04 06:15] LABS: Hematocrit (blood only) 25.1 % (40.1-51.0); Hemoglobin 8.6 g/dl (14.0-18.0); Mean Corpuscular Hemoglobin 28.5 pg (25.0-34.0); Mean Corpuscular Hgb Conc 34.3 g/dL (32.0-36.0); Mean Corpuscular Volume 83.1 fL (80.0-100.0); Mean Platelet Volume 10.3 fL (9.4-12.4); Platelet Count 114 K/uL (130-400); Red Blood Count 3.02 M/uL (4.63-6.08); White Blood Count 4.18 K/ul (4.8-10.8)
[2022-11-04 06:49] LABS: INR 1.2 (0.9-1.1); Prothrombin Time 12.6 Seconds (9.0-12.0)
[2022-11-04 06:55] LABS: Albumin Globulin Ratio 1.4 (0.9-2); Albumin Level 3.3 gm/dl (3.4-5.0); BUN Creatinine Ratio 19.1 (10-20); Bilirubin,Total 1.4 mg/dl (0.2-1.0); Calcium 8.8 mg/dl (8.5-10.1); Creatinine Clr Calc Pharmacy 57.6 ml/min; Est GFR (African American) 93.6 ml/min; Est GFR (Non-African American) 80.8 ml/min; Globulin 2.3 gm/dl (2.5-4.0); Magnesium 1.8 mg/dl (1.7-2.4); Potassium 3.4 mmol/L (3.5-5.1); Total Protein 5.6 gm/dl (6.0-8.3)
--- NOTE | 2022-11-04 08:30 | Hospitalist Progress Note ---
Date of Service November 04, 2022 Assessment & Plan (1) Acute blood loss anemia: Plan: Hgb in 9-10 range over the past year. Dealing w/ issues w/ anemia for years, follows w/ [facility] for anemia. Has hx cirrhosis w/ hx varices Hgb 6.9 on admit, heme + stool Started on protonix gtt GI consulted Agreed to start/continue octreotide gtt s/p 2u PRBC and hgb improved to 9.1--> stable 8.6/8.7 on repeats, no bleeding noted. No further transfusion needed currently Vital signs currently stable NPO for EGD today , further recs pending endoscopy Holding anticoagulation given current GI/blood loss Electrolyte replacement as needed -- ordered 20meq KCL IV while NPO this morning Monitor labs on repeat Not able to obtain iron studies for further eval and has gotten blood. Is on daily iron supplementation at home (2) Encephalopathy acute: Plan: On admit, unknown cause ?from GI bleeding Ammonia wnl CT head negative noted prior symptoms when needed transfusion in the past Patient was alert/oriented x 3 for me this morning Of note, does endorse alcohol use, continued, in hx cirrhosis Given 500mg IV thiamine x 1, was going to continue PO but decision to give additional 200mg IV this morning while NPO and empirically would continue 200mg x 1 month, then 100mg thereafter No B1 level obtained, but has been seen by neurosurgery in Aug 2022 for progressive gait imbalance, could be contributing Prior B12 in Sep 2022 LOW 170 -- DOES NOT appear to be on supplementation Will repeat level in AM/replacement if needed Fall precautions ordered TSH elevated, however not on replacement, T4 wnl. Will check T3 w/ Am labs for completeness Strongly encouraged alcohol cessation -- AWSS protocol ordered PT/OT consults for tomorrow (3) Alcohol dependence: Plan: Patient still drinking approximately 4-5 beers daily, last drink was on 10/31 No overt signs of alcohol withdrawal at this time AWSS at risk protocol for now and monitor on tele No evidence for DT currently B12 w/ AM labs, continue thiamine empirically -- would send thiamine (and likely B12 pending lab in AM) at d/c (4) Elevated troponin: Plan: Initial trop elevated at 24, repeat 22 -- patient is asymptomatic, likely related to deman from his current anemia -Patient with initial ECG with too much artifact for proper interpretation, will repeat another now NSR w/ PACs on monitor Mag was 1.3 on admit, 3gm IV ordered --> 1.8 on repeat (5) Hypertension: Plan: Stable Continue amlodipine 5mg, propranolol 40mg BID BP stable -- 136/80 Monitor (6) Depression: Plan: Continue venlafaxine may need to consider reducing dose w/ hepatic impairment/cirrhosis (7) Diabetes mellitus, type 2: Plan: Hold metformin and alogliptin Monitor BSH q6h while NPO, goal is 110-160 while NPO Starting with 5 units lantus BID and correction factor of 50 with carb ratio of 15 (when he can eat) BSGs acceptable (8) GERD (gastroesophageal reflux disease): Plan: Continue IV protonix with GI bleed (9) Liver cirrhosis, alcoholic: Plan: Stable, GI is following -Continue to monitor AM CMP and PT/INR (10) Hypercholesterolemia: Plan: -Continue statin (11) Hypokalemia: Plan: 3.2 in ER, mag also low Replacement mag 3gm IV, PO KCL Mag wnl on repeat, K 3.4 -- additional K replacement ordered and monitor labs on repeat/additional replacement as needed (12) Hypomagnesemia: Plan: See hypokalemia Plan NPO for EGD this afternoon Admission and Anticipated Discharge Date Admission Date: November 03, 2022 Supervising Physician Co-Signing Physician Notes MARLENY Supervision Note: I did not personally see or examine the patient today, but I verified all samson points of MARLENY Crenshaw's assessment and plan with the following exceptions/additions: None Subjective Eval this morning, doing well. Wanting ice chips/swab for dry mouth. AWaiting EGD for eval, denies any abdominal pain, shortness of breath or chest pain presently. Was intermittently confused for nursing staff this morning, however alert to person/place/time for myself. Does endorse drinking 3-4 beers daily. Recommended cessation. He denies any lester bleeding in stool/urine. Questions/concerns addressed at this time. Review of Systems Review of Systems: All systems reviewed & are unremarkable except as noted in HPI & below Physical Exam Physical Exam: General: WD elderly male resting in bed, NAD, general pallor noted HEENT: head normocephalic, mm slightly dry, trachea midline Resp: CTAB, no w/c/r, on room air CV: RRR, faint systolic murmur, no pitting edema/calf tenderness GI+ BS, soft/NT : no schmitz MSK/Neuro: moves all extremities, no focal deficitys Psych: Alert to person, knows in hospital, year 2022, cooperative and pleasant Skin: cool, dry Results & Data Results & Data ([facility]) Vital Signs (Past 12 Hours) Vital Signs Temp Pulse Pulse Pulse Resp BP Pulse Ox 11/04/22 07:26 37.0 C 63 16 123/60 99 11/04/22 07:22 64 11/04/22 02:59 36.6 C 92 H 18 128/70 97 11/03/22 23:06 70 11/03/22 22:28 36.6 C 75 18 130/69 99 O2 Del Method 11/04/22 07:26 Room Air 11/04/22 07:22 11/04/22 02:59 Room Air 11/03/22 23:06 11/03/22 22:28 Room Air Laboratory Results 11/04/22 11/04/22 11/04/22 Range/Units 11:59 11:36 05:45 WBC 3.24 L 4.18 L (4.8-10.8) K/ul RBC 3.04 L 3.02 L (4.63-6.08) M/uL Hgb 8.7 L 8.6 L (14.0-18.0) g/dl Hct 25.5 L 25.1 L (40.1-51.0) % MCV 83.9 83.1 (80.0-100.0) fL MCH 28.6 28.5 (25.0-34.0) pg MCHC 34.1 34.3 (32.0-36.0) g/dL RDW Std Deviation 44.8 44.0 (36.4-46.3) fL RDW Coeff of Elliot 14.9 H 15.0 H (11.5-14.5) % Plt Count 107 L 114 L (130-400) K/uL MPV 10.6 10.3 (9.4-12.4) fL Platelet Estimate (Normal) PT (9.0-12.0) Seconds INR (0.9-1.1) Sodium (136-145) mmol/L Potassium (3.5-5.1) mmol/L Chloride (98-107) mmol/L Carbon Dioxide (21-32) mmol/L Anion Gap (3-11) BUN (6-23) mg/dl Creatinine (0.6-1.4) mg/dl Est Cr Clr Drug Dosing ml/min Est GFR ( Amer) ml/min Est GFR (Non-Af Amer) ml/min BUN/Creatinine Ratio (10-20) Glucose (70-99(Fasting)) mg/dl POC Glucose 177 H (70-99) mg/dl Calcium (8.5-10.1) mg/dl Magnesium (1.7-2.4) mg/dl Total Bilirubin (0.2-1.0) mg/dl AST (13-39) U/L ALT (7-52) U/L Alkaline Phosphatase (34-104) U/L Total Protein (6.0-8.3) gm/dl Albumin (3.4-5.0) gm/dl Globulin (2.5-4.0) gm/dl Albumin/Globulin Ratio (0.9-2) Blood Type Antibody Screen Crossmatch 11/04/22 11/04/22 11/04/22 Range/Units 05:45 05:45 05:36 WBC (4.8-10.8) K/ul RBC (4.63-6.08) M/uL Hgb (14.0-18.0) g/dl Hct (40.1-51.0) % MCV (80.0-100.0) fL MCH (25.0-34.0) pg MCHC (32.0-36.0) g/dL RDW Std Deviation (36.4-46.3) fL RDW Coeff of Elliot (11.5-14.5) % Plt Count (130-400) K/uL MPV (9.4-12.4) fL Platelet Estimate (Normal) PT 12.6 H (9.0-12.0) Seconds INR 1.2 H (0.9-1.1) Sodium 140 (136-145) mmol/L Potassium 3.4 L (3.5-5.1) mmol/L Chloride 109 H (98-107) mmol/L Carbon Dioxide 22 (21-32) mmol/L Anion Gap 9 (3-11) BUN 17 (6-23) mg/dl Creatinine 0.89 (0.6-1.4) mg/dl Est Cr Clr Drug Dosing 57.6 ml/min Est GFR ( Amer) 93.6 ml/min Est GFR (Non-Af Amer) 80.8 ml/min BUN/Creatinine Ratio 19.1 (10-20) Glucose 96 (70-99(Fasting)) mg/dl POC Glucose 94 (70-99) mg/dl Calcium 8.8 (8.5-10.1) mg/dl Magnesium 1.8 (1.7-2.4) mg/dl Total Bilirubin 1.4 H D (0.2-1.0) mg/dl AST 41 H (13-39) U/L ALT 24 (7-52) U/L Alkaline Phosphatase 71 (34-104) U/L Total Protein 5.6 L (6.0-8.3) gm/dl Albumin 3.3 L (3.4-5.0) gm/dl Globulin 2.3 L (2.5-4.0) gm/dl Albumin/Globulin Ratio 1.4 (0.9-2) Blood Type Antibody Screen Crossmatch 11/04/22 11/03/22 11/03/22 Range/Units 01:05 23:59 21:33 WBC 4.27 L 3.44 L (4.8-10.8) K/ul RBC 3.02 L 3.14 L (4.63-6.08) M/uL Hgb 8.7 L 9.1 L (14.0-18.0) g/dl Hct 25.3 L 26.2 L (40.1-51.0) % MCV 83.8 83.4 (80.0-100.0) fL MCH 28.8 29.0 (25.0-34.0) pg MCHC 34.4 34.7 (32.0-36.0) g/dL RDW Std Deviation 44.5 44.1 (36.4-46.3) fL RDW Coeff of Elliot 14.9 H 14.7 H (11.5-14.5) % Plt Count 114 L 105 L (130-400) K/uL MPV 9.7 10.1 (9.4-12.4) fL Platelet Estimate Decreased L (Normal) PT (9.0-12.0) Seconds INR (0.9-1.1) Sodium (136-145) mmol/L Potassium (3.5-5.1) mmol/L Chloride (98-107) mmol/L Carbon Dioxide (21-32) mmol/L Anion Gap (3-11) BUN (6-23) mg/dl Creatinine (0.6-1.4) mg/dl Est Cr Clr Drug Dosing ml/min Est GFR ( Amer) ml/min Est GFR (Non-Af Amer) ml/min BUN/Creatinine Ratio (10-20) Glucose (70-99(Fasting)) mg/dl POC Glucose 128 H (70-99) mg/dl Calcium (8.5-10.1) mg/dl Magnesium (1.7-2.4) mg/dl Total Bilirubin (0.2-1.0) mg/dl AST (13-39) U/L ALT (7-52) U/L Alkaline Phosphatase (34-104) U/L Total Protein (6.0-8.3) gm/dl Albumin (3.4-5.0) gm/dl Globulin (2.5-4.0) gm/dl Albumin/Globulin Ratio (0.9-2) Blood Type Antibody Screen Crossmatch 11/03/22 11/03/22 11/03/22 Range/Units 21:24 19:14 16:20 WBC (4.8-10.8) K/ul RBC (4.63-6.08) M/uL Hgb (14.0-18.0) g/dl Hct (40.1-51.0) % MCV (80.0-100.0) fL MCH (25.0-34.0) pg MCHC (32.0-36.0) g/dL RDW Std Deviation (36.4-46.3) fL RDW Coeff of Elliot (11.5-14.5) % Plt Count (130-400) K/uL MPV (9.4-12.4) fL Platelet Estimate (Normal) PT (9.0-12.0) Seconds INR (0.9-1.1) Sodium (136-145) mmol/L Potassium (3.5-5.1) mmol/L Chloride (98-107) mmol/L Carbon Dioxide (21-32) mmol/L Anion Gap (3-11) BUN (6-23) mg/dl Creatinine (0.6-1.4) mg/dl Est Cr Clr Drug Dosing ml/min Est GFR ( Amer) ml/min Est GFR (Non-Af Amer) ml/min BUN/Creatinine Ratio (10-20) Glucose (70-99(Fasting)) mg/dl POC Glucose 210 H 202 H 166 H (70-99) mg/dl Calcium (8.5-10.1) mg/dl Magnesium (1.7-2.4) mg/dl Total Bilirubin (0.2-1.0) mg/dl AST (13-39) U/L ALT (7-52) U/L Alkaline Phosphatase (34-104) U/L Total Protein (6.0-8.3) gm/dl Albumin (3.4-5.0) gm/dl Globulin (2.5-4.0) gm/dl Albumin/Globulin Ratio (0.9-2) Blood Type Antibody Screen Crossmatch 11/03/22 Range/Units 10:56 WBC (4.8-10.8) K/ul RBC (4.63-6.08) M/uL Hgb (14.0-18.0) g/dl Hct (40.1-51.0) % MCV (80.0-100.0) fL MCH (25.0-34.0) pg MCHC (32.0-36.0) g/dL RDW Std Deviation (36.4-46.3) fL RDW Coeff of Elliot (11.5-14.5) % Plt Count (130-400) K/uL MPV (9.4-12.4) fL Platelet Estimate (Normal) PT (9.0-12.0) Seconds INR (0.9-1.1) Sodium (136-145) mmol/L Potassium (3.5-5.1) mmol/L Chloride (98-107) mmol/L Carbon Dioxide (21-32) mmol/L Anion Gap (3-11) BUN (6-23) mg/dl Creatinine (0.6-1.4) mg/dl Est Cr Clr Drug Dosing ml/min Est GFR ( Amer) ml/min Est GFR (Non-Af Amer) ml/min BUN/Creatinine Ratio (10-20) Glucose (70-99(Fasting)) mg/dl POC Glucose (70-99) mg/dl Calcium (8.5-10.1) mg/dl Magnesium (1.7-2.4) mg/dl Total Bilirubin (0.2-1.0) mg/dl AST (13-39) U/L ALT (7-52) U/L Alkaline Phosphatase (34-104) U/L Total Protein (6.0-8.3) gm/dl Albumin (3.4-5.0) gm/dl Globulin (2.5-4.0) gm/dl Albumin/Globulin Ratio (0.9-2) Blood Type O Positive Antibody Screen NEGATIVE Crossmatch See Detail PG Care Time/CCT Total # of Minutes Spent Total Time Spent with Patient: Total time spent is greater than 50% in coordination of care (as documented) at patient's floor/unit and/or counseling patient: Coding Level of Care Code 27946 SUB INP/OBS CARE 3/50MIN Diagnoses Acute blood loss anemia D62 Encephalopathy acute G93.40 Alcohol dependence F10.20 Elevated troponin R77.8 Hypertension I10 Hypertension type: essential hypertension Depression F32.9 Diabetes mellitus, type 2 E11.9 Chronic kidney disease stage 3 subtype: stage 3a (GFR 45-59) Diabetes mellitus emt intermediate insulin use: without mcc use GERD (gastroesophageal reflux disease) K21.9 Liver cirrhosis, alcoholic K70.30 Ascites presence: without ascites Hypercholesterolemia E78.00 Hypokalemia E87.6 Hypomagnesemia E83.42 (1) Diabetes mellitus, type 2 Chronic kidney disease stage 3 subtype: stage 3a (GFR 45-59) Diabetes mellitus emt intermediate insulin use: without mcc use (2) Liver cirrhosis, alcoholic Ascites presence: without ascites Qualified Code(s): K70.30 - Alcoholic cirrhosis of liver without ascites (3) Hypertension Hypertension type: essential hypertension Qualified Code(s): I10 - Essential (primary) hypertension
--- NOTE | 2022-11-04 08:30 | Gastroenterology Progress Note ---
Date of Service November 04, 2022 Assessment & Plan (1) Cirrhosis: (2) Acute blood loss anemia: (3) Esophageal varices: Plan: Continue Protonix gtt and Octreotide gtt Will obtain consent from POA for planned EGD today He received 2 u PRBC and had appropriate response Continue supportive care Admission and Anticipated Discharge Date Admission Date: November 03, 2022 Subjective Patient resting comfortably in bed. States he is having some epigastric pain. No overt GI Bleeding overnight. Review of Systems Review of Systems: Unobtainable due to cognitive status Physical Exam Constitutional: + ill appearing (chronic); no acute distress Respiratory: normal respiratory effort; no respiratory distress and no labored breathing Gastrointestinal (Abdomen): Inspection/Auscultation: abdomen normal to inspection; abdomen not distended Percussion/Palpation: + abdomen tender (epigastric) and abdomen soft; no guarding and abdomen not rigid Psychiatric: Confused Results & Data Results & Data ([facility]) Vital Signs (Past 12 Hours) Vital Signs Temp Pulse Pulse Pulse Resp BP Pulse Ox 11/04/22 07:26 37.0 C 63 16 123/60 99 11/04/22 07:22 64 11/04/22 02:59 36.6 C 92 H 18 128/70 97 11/03/22 23:06 70 11/03/22 22:28 36.6 C 75 18 130/69 99 O2 Del Method 11/04/22 07:26 Room Air 11/04/22 07:22 11/04/22 02:59 Room Air 11/03/22 23:06 11/03/22 22:28 Room Air PG Care Time/CCT Total # of Minutes Spent Total Time Spent with Patient: Total time spent is greater than 50% in coordination of care (as documented) at patient's floor/unit and/or counseling patient: Coding Level of Care Code None Diagnoses Cirrhosis K74.60 Acute blood loss anemia D62 Esophageal varices I85.00
[2022-11-04] MEDS ORDERED: THIAMINE HCL 200 MG in SODIUM CHLORIDE 0.9% 50 ML IV ONE (08:45)
[2022-11-04] MEDS ORDERED: THIAMINE HCL 100 MG TAB PO SCH (09:00)
[2022-11-04] MEDS: cefTRIAXone SODIUM 1,000 MG in DEXTROSE 5% AD-VAN 50 ML IV SCH (11:18)
[2022-11-04] MEDS: amLODIPine BESYLATE 5 MG TAB PO SCH (11:19)
[2022-11-04] MEDS: PROPRANOLOL HCL 20 MG TAB PO SCH ×2 (11:20→22:50)
[2022-11-04] MEDS: LANTUS PER UNIT CHARGE SQ SCH ×2 (11:20→22:29)
[2022-11-04] MEDS: FOLIC ACID 1 MG TAB PO SCH (11:20)
[2022-11-04] MEDS: buPROPion SR 150 MG TABCR PO SCH (11:20)
[2022-11-04] MEDS: VENLAFAXINE HCL XR 75 MG CAPXR PO SCH (11:21)
[2022-11-04 12:28] LABS: Hematocrit (blood only) 25.5 % (40.1-51.0); Hemoglobin 8.7 g/dl (14.0-18.0); Mean Corpuscular Hemoglobin 28.6 pg (25.0-34.0); Mean Corpuscular Hgb Conc 34.1 g/dL (32.0-36.0); Mean Corpuscular Volume 83.9 fL (80.0-100.0); Mean Platelet Volume 10.6 fL (9.4-12.4); Platelet Count 107 K/uL (130-400); RDW Coefficient of Variation 14.9 % (11.5-14.5); RDW Standard Deviation 44.8 fL (36.4-46.3); Red Blood Count 3.04 M/uL (4.63-6.08); White Blood Count 3.24 K/ul (4.8-10.8)
[2022-11-04] MEDS: POTASSIUM CHLORIDE / WTR 10 MEQ/100 ML PLCT IV SCH ×2 (13:21→16:00)
--- NOTE | 2022-11-04 13:32 | Anesthesiology Consultation ---
Date of Service November 04, 2022 Assessment & Plan (1) Encounter for pre-operative examination: Chart Review Chart Review: Acceptable Risk for Surgery and Patient NOT seen in Pre Admission Testing Consults Requested none History Surgery Operation Date: 11/04/22 16:55 Proposed Procedures p Esophagogastroduodenoscopy Dr Elijah Ott Case, DO Height/Weight Height: 5 ft 5 in Weight: 65.3 kg Allergies Allergy/AdvReac Type Severity Reaction Status Date / Time No Known Drug Allergies Allergy Unknown Verified 05/27/22 13:38 Medications Home Medications Medication Instructions Recorded Confirmed Last Taken atorvastatin 80 mg tablet 80 mg PO HS 06/13/19 11/03/22 12/04/21 venlafaxine 75 mg capsule,extended 225 mg PO QAM 11/21/19 11/03/22 12/04/21 release 24 hr metformin 1,000 mg tablet 1,000 mg PO BID #180 tabs 05/30/20 11/03/22 12/04/21 alogliptin 25 mg tablet 25 mg PO QAM 08/02/20 11/03/22 12/04/21 pantoprazole 40 mg tablet,delayed 40 mg PO BID #0 tabs 12/07/20 11/03/22 12/04/21 release amlodipine 5 mg tablet 5 mg PO QAM 12/10/20 11/03/22 12/04/21 propranolol 40 mg tablet 40 mg PO BID 12/10/20 11/03/22 12/04/21 meclizine 25 mg tablet 25 mg PO BID PRN dizziness #20 tabs 03/13/21 11/03/22 05/06/21 ondansetron 4 mg disintegrating 4 mg PO Q6H PRN Nausea And 03/26/21 11/03/22 05/06/21 tablet Vomiting #30 tabs diclofenac sodium 1 % topical gel 2 g topical QID PRN Pain 05/13/21 11/03/22 12/04/21 (Voltaren Arthritis Pain) lidocaine 5 % topical patch 1 patch topical DAILY PRN Pain 05/13/21 11/03/22 12/04/21 (Lidoderm) ascorbic acid (vitamin C) 250 mg 250 mg PO QAM 08/20/21 11/03/22 12/04/21 tablet cholecalciferol (vitamin D3) 25 25 mcg PO QAM 08/20/21 11/03/22 12/04/21 mcg (1,000 unit) capsule ferrous sulfate 325 mg (65 mg 325 mg PO HS 08/20/21 11/03/22 12/04/21 iron) tablet fluticasone propionate 50 2 spray intranasal DAILY #16 grams 11/25/21 11/03/22 0 12/04/21 mcg/actuation nasal spray,suspension gabapentin 100 mg capsule 400 mg PO HS 12/01/21 11/03/22 12/04/21 hydrocodone 10 mg-acetaminophen 1 tab PO BID PRN Pain 12/01/21 11/03/22 12/04/21 325 mg tablet bupropion HCl 150 mg tablet,12 hr 150 mg PO QAM 04/27/22 11/03/22 Unknown sustained-release (Wellbutrin SR) Active Medications Generic Name Dose Route Start Last Admin Trade Name Freq PRN Reason Stop Dose Admin Acetaminophen 650 mg 11/04/22 02:20 11/04/22 02:30 Acetaminophen 325 Mg Tab PO 12/04/22 02:19 650 mg Q4H PRN Administration Headache or Pain Amlodipine Besylate 5 mg 11/03/22 14:15 11/04/22 11:19 Amlodipine Besylate 5 Mg Tab PO 12/03/22 14:14 Not Given QAM AMNA Atorvastatin Calcium 80 mg 11/03/22 21:00 11/03/22 20:32 Atorvastatin 40 Mg Tab PO 12/03/22 20:59 80 mg HS AMNA Administration Bupropion HCl 150 mg 11/03/22 14:15 11/04/22 11:20 Bupropion Sr 150 Mg Tabcr PO 12/03/22 14:14 Not Given QAM AMNA Ferrous Sulfate 325 mg 11/03/22 21:00 11/03/22 20:32 Ferrous Sulfate 325 Mg Tab PO 12/03/22 20:59 325 mg HS AMNA Administration Folic Acid 1 mg 11/04/22 09:00 11/04/22 11:20 Folic Acid 1 Mg Tab PO 12/04/22 08:59 Not Given QAM AMNA Ceftriaxone Sodium 1,000 mg/ 50 mls @ 100 mls/hr 11/03/22 13:00 11/04/22 12:18 Dextrose IV 11/10/22 12:59 Infused DAILY AMNA Infusion Protocol Octreotide Acetate 500 mcg/ 100.5 mls @ 10.05 mls/hr 11/03/22 13:00 11/04/22 11:21 Dextrose IV 12/03/22 12:59 50 mcg/hr .Q10H AMNA 10.1 mls/hr Administration 50 MCG/HR Pantoprazole Sodium 40 mg/ 100 mls @ 20 mls/hr 11/03/22 13:15 11/04/22 11:51 Dextrose IV 12/03/22 13:14 8 mg/hr Q5H AMNA 20 mls/hr Administration 8 MG/HR Insulin Aspart 0 units 11/03/22 18:00 11/04/22 13:24 Insulin Aspart Per Unit SC 12/03/22 17:59 1 units Q6 AMNA Administration Insulin Glargine 5 units 11/03/22 21:00 11/04/22 11:20 Lantus Per Unit Charge SQ 12/03/22 20:59 Not Given BID AMNA Propranolol HCl 40 mg 11/03/22 21:00 11/04/22 11:20 Propranolol Hcl 20 Mg Tab PO 12/03/22 20:59 Not Given BID AMNA Venlafaxine HCl 225 mg 11/03/22 14:15 11/04/22 11:21 Venlafaxine Hcl Xr 75 Mg Capxr PO 12/03/22 14:14 Not Given QAM AMNA NPO Date Last Intake of Fluids: 11/04/22 Time Last Intake of Fluids: 02:30 Last Intake of Fluids Comment: Pt. had sips w/ medications Past Medical History Medical History Abdominal ascites Acute pancreatitis Alcohol dependence Anxiety Bilateral primary osteoarthritis of knee Bilateral tinnitus Carpal tunnel syndrome Cervical spondylosis without myelopathy Depression Diabetes mellitus, type 2 NIDDM Esophageal varices Grade 1 small varices in the lower third of the esophagus per 09/30/20 EGD, undergoes routine surveillance EGDs Fatty liver GERD (gastroesophageal reflux disease) controlled Hiatal hernia History of gastric polyp History of prostate cancer s/p prostatectomy (1998), no chemo/no radiation Hypercholesterolemia Hypertension 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 Left knee DJD Left knee DJD Liver cirrhosis, alcoholic hx small esophageal varices (09/2020) under surveillance, no banding indicated on most recent EGD, follows with [facility], stable Lumbar stenosis Neck pain with history of cervical spinal surgery Restless legs syndrome Sensorineural hearing loss (SNHL) of both ears Thrombocytopenia hx cirrhosis, chronic mild thrombocytopenia Past Family History Family History Sister Family history of diabetes mellitus Breast cancer Mother Colorectal cancer Stroke Hypertension Brother Prostate cancer Colorectal cancer Father Myocardial infarction Son Thyroid disease Mother Family history of diabetes mellitus Sister Family history of diabetes mellitus Sister Family history of diabetes mellitus Other Cancer No family history of adverse response to anesthesia No family history of allergies No family history of bleeding disorder Denies family history of Ovarian cancer Hearing loss Heart disease Asthma Past Surgical History Surgical History History of biopsy pancreatic mass biopsy on 07/01/2020 - benign History of colonoscopy (06/2018) History of cystoscopy d/t incontinence History of esophagogastroduodenoscopy (EGD) (11/2019) 11/30/19: MAC sedation at [facility] History of laminectomy X3 History of prostatectomy History of right inguinal hernia repair History of tooth extraction Hx of cervical spine surgery (12/2019) C3-C6 laminectomy, C3-T1 PCF Hx of inguinal hernia surgery (09/14/19) Open Right Inguinal Hernia Repair with Mesh: 09/14/19: LMA#5 at [facility] S/P total knee arthroplasty 11/12/20 Dr. Khoa Fink- Right TKA Status post right knee replacement Social History Smoking Status: Never smoker tobacco type: smokeless tobacco Hx Alcohol Use: Yes Alcohol type: beer alcohol intake frequency: a few times a week Hx Substance Use: Yes substance use type: opiates and prescription drug Physical Exam Vital Signs Last Vital Signs Temp 98.4 F 11/04/22 11:18 Pulse 58 L 11/04/22 11:18 Resp 16 11/04/22 11:18 BP 138/66 11/04/22 11:18 Pulse Ox 98 11/04/22 11:18 O2 Del Method 11/04/22 11:18 Testing Laboratory Results 11/04/22 11:59 11/04/22 05:45 PT 12.6 Seconds (9.0-12.0) H 11/04/22 05:45 INR 1.2 (0.9-1.1) H 11/04/22 05:45 Urine Color Yellow 11/03/22 09:59 Urine Appearance Clear (Clear) 11/03/22 09:59 Urine pH 8.5 (4.5-7.5) H 11/03/22 09:59 Ur Specific [place] 1.013 (1.000-1.030) 11/03/22 09:59 Urine Protein Negative (Negative) 11/03/22 09:59 Urine Glucose (UA) Negative (Negative) 11/03/22 09:59 Urine Ketones Trace (Negative) H 11/03/22 09:59 Urine Nitrite Negative (Negative) 11/03/22 09:59 Ur Leukocyte Esterase Negative (Negative) 11/03/22 09:59 Blood Type O Positive 11/03/22 10:56 Antibody Screen NEGATIVE 11/03/22 10:56 11/03/22 09:59 Urine Culture - Preliminary Urine,Straight Cath No growth - Less than 1,000 colonies/mL, Final report to follow. 11/04/22 11/04/22 11:36 05:36 POC Glucose 177 H 94 Electrocardiogram Date: 11/03/22 Findings: + NSR @
[2022-11-04] MEDS ORDERED: PROPOFOL IV EMULSION 10 MG/ML 20 ML VIAL IV ONE (15:43)
[2022-11-04] MEDS ORDERED: LIDOCAINE 2% MPF LOCAL 5 ML VIAL INFIL ONE (15:43)
--- NOTE | 2022-11-04 16:29 | Anesthesiology Progress Note ---
Date of Service November 04, 2022 Anesthesia Post Procedure Vital Signs Vital Signs: Temp Pulse Pulse Pulse Resp BP BP 11/04/22 16:16 62 16 11/04/22 14:06 98.6 F 64 16 11/04/22 11:18 98.4 F 58 L 16 11/04/22 07:26 98.6 F 63 16 123/60 11/04/22 07:22 64 11/04/22 02:59 97.9 F 92 H 18 128/70 11/03/22 23:06 70 11/03/22 22:28 97.9 F 75 18 130/69 11/03/22 19:16 98.1 F 86 16 160/83 H 11/03/22 18:11 98.1 F 85 18 160/80 H 11/03/22 17:11 97.7 F 88 18 162/87 H BP Pulse Ox O2 Del Method 11/04/22 16:16 109/66 97 Room Air 11/04/22 14:06 136/80 99 Room Air 11/04/22 11:18 138/66 98 Room Air 11/04/22 07:26 99 Room Air 11/04/22 07:22 11/04/22 02:59 97 Room Air 11/03/22 23:06 11/03/22 22:28 99 Room Air 11/03/22 19:16 99 11/03/22 18:11 98 11/03/22 17:11 98 Transfer of Care Handoff Completed per policy Notes Mental Status: alert / awake / arousable and participated in evaluation Patient Amnestic to Procedure: Yes Nausea / Vomiting: adequately controlled Pain: adequately controlled Airway Patency, RR, SpO2: stable & adequate BP & HR: stable & adequate Hydration State: stable & adequate Anesthetic Complications: no major complications apparent and Pt Satisfied with anesthetic care
--- NOTE | 2022-11-04 16:34 | GI REPORT ---
Patient Name: Gary Huggins Procedure Date: 11/04/2022 3:58 PM Date of : 1940 Admit Type: Inpatient Age: 82 Gender: Male Attending MD: Ashwin Nava DO, Procedure: Upper GI endoscopy Providers: Ashwin Nava DO Referring MD: Annette Mojica Md Indications: Melena Medicines: Monitored Anesthesia Care Complications: No immediate complications. Estimated Blood Loss: Estimated blood loss: none. Procedure: Pre-Anesthesia Assessment: - Prior to the procedure, a History and Physical was performed, and patient medications and allergies were reviewed. The patient's tolerance of previous anesthesia was also reviewed. The risks and benefits of the procedure and the sedation options and risks were discussed with the patient. All questions were answered, and informed consent was obtained. Prior Anticoagulants: The patient has taken no anticoagulant or antiplatelet agents. ASA Grade Assessment: III - A patient with severe systemic disease. After reviewing the risks and benefits, the patient was deemed in satisfactory condition to undergo the procedure. After obtaining informed consent, the endoscope was passed under direct vision. Throughout the procedure, the patient's blood pressure, pulse, and oxygen saturations were monitored continuously. The Endoscope was introduced through the mouth, and advanced to the second part of duodenum. The upper GI endoscopy was accomplished without difficulty. The patient tolerated the procedure well. Findings: Grade I varices were found in the middle third of the esophagus. A small hiatal hernia was present. Portal hypertensive gastropathy with dispersed erosions and inflammatory polyps, with active bleeding at 2 polyp sites were found in the entire examined stomach. For hemostasis, two hemostatic clips were successfully placed (MR conditional). 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 There was no bleeding at the end of the procedure. Of note, multiple prior endoclips were noted in the stomach. The examined duodenum was normal. Impression: - Grade I esophageal varices. - Small hiatal hernia. - Erosive gastropathy with active bleeding. Clips (MR conditional) were placed. 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 - Normal examined duodenum. - No specimens collected. Recommendation: - Return patient to [facility] care. - Advance diet as tolerated. - Continue present medications. - Could consider TIPS procedure at Tertiary care center if bleeding persists. - Return to primary care physician as previously scheduled. Ashwin Nava DO 11/04/2022 4:34:24 PM This report has been signed electronically. Note Initiated On: 11/04/2022 3:58 PM Number of Addenda: 0 I attest to the content of the Intraoperative Record and orders documented therein, exceptions below {[id number]}
[2022-11-04 18:35] LABS: Hematocrit (blood only) 27.1 % (42.0-52.0); Hemoglobin 9.3 g/dl (14.0-18.0); Mean Corpuscular Hemoglobin 29.1 pg (25.0-34.0); Mean Corpuscular Hgb Conc 34.3 g/dL (32.0-36.0); Mean Corpuscular Volume 84.7 fL (80.0-100.0); Mean Platelet Volume 10.8 fL (9.4-12.4); Platelet Count 116 K/uL (130-400); RDW Coefficient of Variation 15.4 % (11.5-14.5); RDW Standard Deviation 46.2 fL (36.4-46.3); White Blood Count 3.47 K/ul (4.8-10.8)
[2022-11-04] MEDS: ATORVASTATIN 40 MG TAB PO SCH (22:50)
[2022-11-04] MEDS: FERROUS SULFATE 325 MG TAB PO SCH (22:50)
[2022-11-05] MEDS: OCTREOTIDE ACETATE 500 MCG in DEXTROSE 5% 100 ML IV SCH ×2 (00:52→11:44)
[2022-11-05] MEDS ORDERED: Nursing to Pharmacy Communication SCH ×2 (01:15→04:15)
[2022-11-05 01:46] LABS: Hematocrit (blood only) 28.5 % (42.0-52.0); Hemoglobin 9.5 g/dl (14.0-18.0); Mean Corpuscular Hemoglobin 28.7 pg (25.0-34.0); Mean Corpuscular Hgb Conc 33.3 g/dL (32.0-36.0); Mean Corpuscular Volume 86.1 fL (80.0-100.0); Mean Platelet Volume 10.5 fL (9.4-12.4); Platelet Count 142 K/uL (130-400); RDW Coefficient of Variation 15.5 % (11.5-14.5); RDW Standard Deviation 47.1 fL (36.4-46.3); Red Blood Count 3.31 M/uL (4.70-6.10); White Blood Count 4.53 K/ul (4.8-10.8)
[2022-11-05] MEDS: PANTOprazole 40 MG in DEXTROSE 5% 100 ML IV SCH ×2 (03:13→08:52)
[2022-11-05 07:47] LABS: Albumin Globulin Ratio 1.4 (0.9-2); Albumin Level 3.3 gm/dl (3.4-5.0); Bilirubin,Total 1.3 mg/dl (0.2-1.0); Calcium 8.5 mg/dl (8.5-10.1); Creatinine Clr Calc Pharmacy 59.6 ml/min; Est GFR (African American) 94.9 ml/min; Est GFR (Non-African American) 81.9 ml/min; Globulin 2.3 gm/dl (2.5-4.0); Magnesium 1.5 mg/dl (1.7-2.4); Potassium 3.5 mmol/L (3.5-5.1); Total Protein 5.6 gm/dl (6.0-8.3)
[2022-11-05 07:59] LABS: INR 1.2 (0.9-1.1); Prothrombin Time 12.7 Seconds (9.0-12.0)
--- NOTE | 2022-11-05 08:02 | Hospitalist Progress Note ---
Date of Service November 05, 2022 Assessment & Plan (1) Acute blood loss anemia: Plan: Hgb in 9-10 range over the past year. Dealing w/ issues w/ anemia for years, follows w/ [facility] for anemia. Has hx cirrhosis w/ hx varices Hgb 6.9 on admit, heme + stool Started on protonix gtt, octreotide gtt GI consulted s/p 2u PRBC EGD 11/04 w/ Dr Case revealed grade I esophageal varices, small hiatal hernia, erosive gastropathy with active bleeding. clips (MR conditional) were placed. Could consider TIPS at tertiary care center is bleeding persists. Clear liquid diet --> advanced to DM/AHA diet D/c Octreotide Transition Protonix gtt to PO BID -- continue at d/c Continue ceftriaxone IV x 7 days (day 37)-- will need to arrange w/ CM at d/c Bowel regimen, lactulose x 1 Holding DVT proph given current GI/blood loss wanting to keep overnight, PT/OT consults pending (2) Encephalopathy acute: Plan: On admit, unknown cause ?from GI bleeding Ammonia wnl CT head negative noted prior symptoms when needed transfusion in the past Patient was alert/oriented x 3 for me 11/04 --Of note, does endorse alcohol use w/ his hx cirrhosis Thiamine 500mg IV x 1, additional 200mg IV, and continue PO BID -- continue at d/c B12 wnl -- prior low 170 -- gets injections monthly with CCP TSh elevated, T4 wnl -- ? reactive. T3 checked for completeness and was LOW 2.1 --> rec repeating TFT in 4-6 weeks outpatient/consideration and possible replacement Alcohol cessation rec'd Repeat ammonia in am but ordered dose of lactulose as no BM since admit (denies any abd pain, no asterixis on exam) PT/OT consulted -- evals still pending Fall risk (3) Alcohol dependence: Plan: Patient still drinking approximately 4-5 beers daily, last drink was on 10/31 No overt signs of alcohol withdrawal at this time AWSS at risk protocol for now and monitor on tele No evidence for DT currently B12 w/ labs -- see above, on monthly supplementation Thiamine-- no level, but replacement ordered -- would continue at d/c empirically (4) Elevated troponin: Plan: Initial trop elevated at 24, repeat 22 -- patient is asymptomatic, likely related to deman from his current anemia Patient with initial ECG with too much artifact for proper interpretation, will repeat another now NSR w/ PACs on monitor Mag was 1.3 on admit, 3gm IV ordered --> 1.8 on repeat but again low at 1.5 and additional replacement ordered (5) Hypertension: Plan: Stable Continue amlodipine 5mg, propranolol 40mg BID with hold parameters BP stable -- 130/73 Monitor (6) Depression: Plan: Continue venlafaxine may need to consider reducing dose w/ hepatic impairment/cirrhosis (7) Diabetes mellitus, type 2: Plan: Hold metformin and alogliptin BSG AC/HS while inpatient Lantus 5u BID, ISS BSGs acceptable Monitor (8) GERD (gastroesophageal reflux disease): Plan: Continue IV protonix with GI bleed -- converted to PO BID (9) Liver cirrhosis, alcoholic: Plan: Stable, GI is following -Continue to monitor AM CMP and PT/INR (10) Hypercholesterolemia: Plan: Continue statin (11) Hypokalemia: Plan: 3.2 in ER, mag also low replacement -- K 3.5, mag again low and additional repaceent ordered Monitor BMP/mag in AM Consider oral supp at d/c pending repeat (12) Hypomagnesemia: Plan: See hypokalemia Plan continued inpatient stay Admission and Anticipated Discharge Date Admission Date: November 03, 2022 Supervising Physician Co-Signing Physician Notes MARLENY Supervision Note: I did not personally see or examine the patient today, but I verified all samson points of MARLENY Crenshaw's assessment and plan with the following exceptions/additions: None Subjective eval this morning, doing well, wanting some real food still on clear liquid diet, discussed advancing passing gas, but no BM denies any cp, shortness of breath, abdominal pain, nausea or vomiting. wanting to go home if possible -- wanting him to stay overnight. Review of Systems Review of Systems: All systems reviewed & are unremarkable except as noted in HPI & below Physical Exam Physical Exam: General: WD elderly male resting in bed, NAD, general pallor noted HEENT: head normocephalic, mm improved, trachea midline Resp: CTAB, no w/c/r, on room air CV: RRR, + systolic murmur 3-4/6, no pitting edema/calf tenderness GI+ BS, soft/NT : no schmitz MSK/Neuro: moves all extremities, no focal deficits Psych: Alert to person, knows in hospital, year 2022, cooperative and pleasant Skin: cool, dry Results & Data Results & Data ([facility]) Vital Signs (Past 12 Hours) Vital Signs Temp Pulse Pulse Resp BP BP Pulse Ox 11/05/22 07:19 37 C 58 L 16 130/73 95 11/05/22 06:35 36.7 C 58 L 18 134/69 99 11/05/22 04:02 36.7 C 65 18 134/80 97 11/04/22 22:02 67 11/04/22 23:48 36.9 C 63 18 138/75 99 11/04/22 21:55 36.7 C 70 18 151/81 H 97 O2 Del Method 11/05/22 07:19 Room Air 11/05/22 06:35 Room Air 11/05/22 04:02 Room Air 11/04/22 22:02 11/04/22 23:48 Room Air 11/04/22 21:55 Room Air Laboratory Results 11/05/22 11/05/22 11/05/22 Range/Units 12:14 08:17 08:09 WBC (4.8-10.8) K/ul RBC (4.70-6.10) M/uL Hgb (14.0-18.0) g/dl Hct (42.0-52.0) % MCV (80.0-100.0) fL MCH (25.0-34.0) pg MCHC (32.0-36.0) g/dL RDW Std Deviation (36.4-46.3) fL RDW Coeff of Elliot (11.5-14.5) % Plt Count (130-400) K/uL MPV (9.4-12.4) fL PT (9.0-12.0) Seconds INR (0.9-1.1) Sodium (136-145) mmol/L Potassium (3.5-5.1) mmol/L Chloride (98-107) mmol/L Carbon Dioxide (21-32) mmol/L Anion Gap (3-11) BUN (6-23) mg/dl Creatinine (0.6-1.4) mg/dl Est Cr Clr Drug Dosing ml/min Est GFR ( Amer) ml/min Est GFR (Non-Af Amer) ml/min BUN/Creatinine Ratio (10-20) Glucose (70-99(Fasting)) mg/dl POC Glucose 131 H 117 H (70-99) mg/dl Calcium (8.5-10.1) mg/dl Magnesium (1.7-2.4) mg/dl Total Bilirubin (0.2-1.0) mg/dl AST (13-39) U/L ALT (7-52) U/L Alkaline Phosphatase (34-104) U/L Total Protein (6.0-8.3) gm/dl Albumin (3.4-5.0) gm/dl Globulin (2.5-4.0) gm/dl Albumin/Globulin Ratio (0.9-2) Vitamin B12 (180-914) pg/ml Folate (>5.38) ng/ml Free T3 2.10 L (2.3-4.2) pg/ml 11/05/22 11/05/22 11/05/22 Range/Units 07:01 07:01 07:01 WBC (4.8-10.8) K/ul RBC (4.70-6.10) M/uL Hgb (14.0-18.0) g/dl Hct (42.0-52.0) % MCV (80.0-100.0) fL MCH (25.0-34.0) pg MCHC (32.0-36.0) g/dL RDW Std Deviation (36.4-46.3) fL RDW Coeff of Elliot (11.5-14.5) % Plt Count (130-400) K/uL MPV (9.4-12.4) fL PT 12.7 H (9.0-12.0) Seconds INR 1.2 H (0.9-1.1) Sodium 138 (136-145) mmol/L Potassium 3.5 (3.5-5.1) mmol/L Chloride 109 H (98-107) mmol/L Carbon Dioxide 22 (21-32) mmol/L Anion Gap 7 (3-11) BUN 12 (6-23) mg/dl Creatinine 0.86 (0.6-1.4) mg/dl Est Cr Clr Drug Dosing 59.6 ml/min Est GFR ( Amer) 94.9 ml/min Est GFR (Non-Af Amer) 81.9 ml/min BUN/Creatinine Ratio 14.0 (10-20) Glucose 118 H (70-99(Fasting)) mg/dl POC Glucose (70-99) mg/dl Calcium 8.5 (8.5-10.1) mg/dl Magnesium 1.5 L (1.7-2.4) mg/dl Total Bilirubin 1.3 H (0.2-1.0) mg/dl AST 48 H (13-39) U/L ALT 27 (7-52) U/L Alkaline Phosphatase 74 (34-104) U/L Total Protein 5.6 L (6.0-8.3) gm/dl Albumin 3.3 L (3.4-5.0) gm/dl Globulin 2.3 L (2.5-4.0) gm/dl Albumin/Globulin Ratio 1.4 (0.9-2) Vitamin B12 876 (180-914) pg/ml Folate 20.08 (>5.38) ng/ml Free T3 (2.3-4.2) pg/ml 11/05/22 11/04/22 11/04/22 Range/Units 00:40 21:12 18:12 WBC 4.53 L (4.8-10.8) K/ul RBC 3.31 L (4.70-6.10) M/uL Hgb 9.5 L (14.0-18.0) g/dl Hct 28.5 L (42.0-52.0) % MCV 86.1 (80.0-100.0) fL MCH 28.7 (25.0-34.0) pg MCHC 33.3 (32.0-36.0) g/dL RDW Std Deviation 47.1 H (36.4-46.3) fL RDW Coeff of Elliot 15.5 H (11.5-14.5) % Plt Count 142 (130-400) K/uL MPV 10.5 (9.4-12.4) fL PT (9.0-12.0) Seconds INR (0.9-1.1) Sodium (136-145) mmol/L Potassium (3.5-5.1) mmol/L Chloride (98-107) mmol/L Carbon Dioxide (21-32) mmol/L Anion Gap (3-11) BUN (6-23) mg/dl Creatinine (0.6-1.4) mg/dl Est Cr Clr Drug Dosing ml/min Est GFR ( Amer) ml/min Est GFR (Non-Af Amer) ml/min BUN/Creatinine Ratio (10-20) Glucose (70-99(Fasting)) mg/dl POC Glucose 200 H 154 H (70-99) mg/dl Calcium (8.5-10.1) mg/dl Magnesium (1.7-2.4) mg/dl Total Bilirubin (0.2-1.0) mg/dl AST (13-39) U/L ALT (7-52) U/L Alkaline Phosphatase (34-104) U/L Total Protein (6.0-8.3) gm/dl Albumin (3.4-5.0) gm/dl Globulin (2.5-4.0) gm/dl Albumin/Globulin Ratio (0.9-2) Vitamin B12 (180-914) pg/ml Folate (>5.38) ng/ml Free T3 (2.3-4.2) pg/ml 11/04/22 Range/Units 18:05 WBC 3.47 L (4.8-10.8) K/ul RBC 3.20 L (4.70-6.10) M/uL Hgb 9.3 L (14.0-18.0) g/dl Hct 27.1 L (42.0-52.0) % MCV 84.7 (80.0-100.0) fL MCH 29.1 (25.0-34.0) pg MCHC 34.3 (32.0-36.0) g/dL RDW Std Deviation 46.2 (36.4-46.3) fL RDW Coeff of Elliot 15.4 H (11.5-14.5) % Plt Count 116 L (130-400) K/uL MPV 10.8 (9.4-12.4) fL PT (9.0-12.0) Seconds INR (0.9-1.1) Sodium (136-145) mmol/L Potassium (3.5-5.1) mmol/L Chloride (98-107) mmol/L Carbon Dioxide (21-32) mmol/L Anion Gap (3-11) BUN (6-23) mg/dl Creatinine (0.6-1.4) mg/dl Est Cr Clr Drug Dosing ml/min Est GFR ( Amer) ml/min Est GFR (Non-Af Amer) ml/min BUN/Creatinine Ratio (10-20) Glucose (70-99(Fasting)) mg/dl POC Glucose (70-99) mg/dl Calcium (8.5-10.1) mg/dl Magnesium (1.7-2.4) mg/dl Total Bilirubin (0.2-1.0) mg/dl AST (13-39) U/L ALT (7-52) U/L Alkaline Phosphatase (34-104) U/L Total Protein (6.0-8.3) gm/dl Albumin (3.4-5.0) gm/dl Globulin (2.5-4.0) gm/dl Albumin/Globulin Ratio (0.9-2) Vitamin B12 (180-914) pg/ml Folate (>5.38) ng/ml Free T3 (2.3-4.2) pg/ml PG Care Time/CCT Total # of Minutes Spent Total Time Spent with Patient: Total time spent is greater than 50% in coordination of care (as documented) at patient's floor/unit and/or counseling patient: Coding Level of Care Code 80293 SUB INP/OBS CARE 3/50MIN Diagnoses Acute blood loss anemia D62 Encephalopathy acute G93.40 Alcohol dependence F10.20 Elevated troponin R77.8 Hypertension I10 Hypertension type: essential hypertension Depression F32.9 Diabetes mellitus, type 2 E11.9 Chronic kidney disease stage 3 subtype: stage 3a (GFR 45-59) Diabetes mellitus shelter insulin use: without shelter use GERD (gastroesophageal reflux disease) K21.9 Liver cirrhosis, alcoholic K70.30 Ascites presence: without ascites Hypercholesterolemia E78.00 Hypokalemia E87.6 Hypomagnesemia E83.42 (1) Diabetes mellitus, type 2 Chronic kidney disease stage 3 subtype: stage 3a (GFR 45-59) Diabetes mellitus shelter insulin use: without long distance billing operator use (2) Liver cirrhosis, alcoholic Ascites presence: without ascites Qualified Code(s): K70.30 - Alcoholic cirrhosis of liver without ascites (3) Hypertension Hypertension type: essential hypertension Qualified Code(s): I10 - Essential (primary) hypertension
[2022-11-05] MEDS: LANTUS PER UNIT CHARGE SQ SCH ×2 (08:28→21:30)
[2022-11-05] MEDS: INSULIN ASPART PER UNIT SC SCH ×4 (08:28→21:29)
[2022-11-05] MEDS ORDERED: THIAMINE HCL 100 MG TAB PO SCH (09:00)
[2022-11-05] MEDS: amLODIPine BESYLATE 5 MG TAB PO SCH (10:31)
[2022-11-05] MEDS: FOLIC ACID 1 MG TAB PO SCH (10:32)
[2022-11-05] MEDS: buPROPion SR 150 MG TABCR PO SCH (10:32)
[2022-11-05] MEDS: VENLAFAXINE HCL XR 75 MG CAPXR PO SCH (10:32)
[2022-11-05] MEDS: MAGNESIUM SULFATE / D5W 1 GM/100 ML BAG IV SCH ×3 (10:49→14:49)
[2022-11-05] MEDS: cefTRIAXone SODIUM 1,000 MG in DEXTROSE 5% AD-VAN 50 ML IV SCH (10:49)
--- NOTE | 2022-11-05 10:58 | Communication Note ---
Date of Service: November 05, 2022 Reviewed EGD from yesterday with the patient. He is alert and oriented today. no GI complaints at this time per patient. EGD 11/04/2223 Grade I esophageal varices, small hiatal hernia, erosive gastropathy with bleeding polyps (clips placed). no further signs of gi bleeding per patient or nursing. Hgb today is 9.5 (previously 9.3). will stop octreotide at this time. recommend continuing ceftriaxone 1gm daily x 7 days. Recommend Pantoprazole 40 mg by mouth twice daily
[2022-11-05] MEDS: PROPRANOLOL HCL 20 MG TAB PO SCH ×2 (11:42→20:31)
[2022-11-05] MEDS ORDERED: LACTULOSE SYRUP 20 GM/30 ML UDC PO ONE (15:44)
[2022-11-05] MEDS: THIAMINE HCL 100 MG TAB PO SCH (19:36)
[2022-11-05] MEDS: PANTOprazole 40 MG TAB PO SCH (19:36)
[2022-11-05] MEDS: FERROUS SULFATE 325 MG TAB PO SCH (19:37)
[2022-11-05] MEDS: ATORVASTATIN 40 MG TAB PO SCH (19:37)
[2022-11-05] MEDS: ACETAMINOPHEN 325 MG TAB PO PRN (21:30)
[2022-11-06 06:35] LABS: Hematocrit (blood only) 27.4 % (42.0-52.0); Hemoglobin 9.3 g/dl (14.0-18.0); Mean Corpuscular Hemoglobin 29.1 pg (25.0-34.0); Mean Corpuscular Hgb Conc 33.9 g/dL (32.0-36.0); Mean Corpuscular Volume 85.6 fL (80.0-100.0); Mean Platelet Volume 10.5 fL (9.4-12.4); Platelet Count 129 K/uL (130-400); RDW Coefficient of Variation 14.9 % (11.5-14.5); RDW Standard Deviation 45.2 fL (36.4-46.3); White Blood Count 5.37 K/ul (4.8-10.8)
[2022-11-06 06:44] LABS: Albumin Level 3.2 gm/dl (3.4-5.0); Bilirubin,Total 1.2 mg/dl (0.2-1.0); Calcium 8.3 mg/dl (8.5-10.1); Magnesium 1.9 mg/dl (1.7-2.4); Potassium 3.3 mmol/L (3.5-5.1)
[2022-11-06 06:50] LABS: Albumin Globulin Ratio 1.4 (0.9-2); Creatinine Clr Calc Pharmacy 59.6 ml/min; Est GFR (African American) 94.9 ml/min; Est GFR (Non-African American) 81.9 ml/min; Globulin 2.3 gm/dl (2.5-4.0); Total Protein 5.5 gm/dl (6.0-8.3)
[2022-11-06] MEDS ORDERED: POTASSIUM CHLORIDE CRTAB 20 MEQ TABCR PO STA (07:52)
--- NOTE | 2022-11-06 07:52 | Hospitalist Progress Note ---
Date of Service November 06, 2022 Assessment & Plan (1) Acute blood loss anemia: Plan: Hgb in 9-10 range over the past year. Dealing w/ issues w/ anemia for years, follows w/ [facility] for anemia. Has hx cirrhosis w/ hx varices Hgb 6.9 on admit, heme + stool Started on protonix gtt, octreotide gtt GI consulted s/p 2u PRBC EGD 11/04 w/ Case revealed grade I esophageal varices, small hiatal hernia, erosive gastropathy with active bleeding. clips (MR conditional) were placed. Could consider TIPS at tertiary care center is bleeding persists. D/c'd Octreotide Transition Protonix gtt to PO BID -- continue at d/c Clear liquid diet --> advanced to DM/AHA diet, tolerating hgb stable at 9.3 Continue ceftriaxone IV x 7 days (day 4/7)-- discussed w/ Case and will plan for Cipro BID at discharge to complete 7 days but will continue IV while inpatient Bowel regimen, lactulose x 1, additional dose today, +BM Per PT/OT yesterday -- recommending rehab given weakness/balance issues (on empiric thiamine as below, etoh use). Ok'd by patient and , conveyed to CM, ref sent and auth received and [facility] will be able to take patient on WEDNESDAY (2) Encephalopathy acute: Plan: On admit, unknown cause ?from GI bleeding Ammonia wnl x2 CT head negative Confusion when needing transfusions in the past AOx3 for myself, intermittent confusion at times noted by staff, but at baseline per Thiamine 500mg IV x 1, additional 200mg IV, and continue PO BID -- continue at d/c B12 wnl -- prior low 170 --> gets injections monthly with [facility] TSh elevated, T4 wnl -- ? reactive. T3 checked for completeness and was LOW 2.1--> rec repeating TFT in 4-6 weeks outpatient/consideration and possible replacement Alcohol cessation rec'd Lactulose given to help w/ BM but ammonia wnl/no asterixis -- consider daily low dose at d/c to prevent issues w/ constiaption/worsening confusion/weakness Maintain fall precautions, unsteady on his feet PT/OT consulted-> [facility] on wednesday Mentation at baseline, however given balance issues/1st degree AV block on monitor will add lyme testing (would be covered by the ceftriaxone as above). (3) Alcohol dependence: Plan: Patient still drinking approximately 4-5 beers daily, last drink was on 10/31 No overt signs of alcohol withdrawal at this time AWSS at risk protocol for now and monitor on tele No evidence for DT currently B12 w/ labs -- see above, on monthly supplementation Thiamine-- no level, but replacement ordered -- would continue at d/c empiric ally (4) Elevated troponin: Plan: Initial trop elevated at 24, repeat 22 -- patient is asymptomatic, likely related to deman from his current anemia Patient with initial ECG with too much artifact for proper interpretation, will repeat another now NSR/SB on monitor, rates low 50s. Decreased propranolol to 20mg BID for now (5) Hypertension: Plan: Stable Continue amlodipine 5mg, propranolol 40mg BID with hold parameters (will decrease to 20mg BID for now given low HR/borderline BP) Monitor (6) Depression: Plan: Continue venlafaxine may need to consider reducing dose w/ hepatic impairment/cirrhosis (7) Diabetes mellitus, type 2: Plan: Hold metformin and alogliptin BSG AC/HS while inpatient Lantus 5u BID, ISS BSGs acceptable Monitor (8) GERD (gastroesophageal reflux disease): Plan: Continue IV protonix with GI bleed -- converted to PO BID (9) Liver cirrhosis, alcoholic: Plan: Stable, GI consulted while inpatient (10) Hypercholesterolemia: Plan: Continue statin (11) Hypokalemia: Plan: 3.2 in ER, mag also low --> replacement ordered, improved but K low 3.3 on AM labs and additional PO ordered Hopefully improvement since advancement in diet Monitor BMP/mag in AM (12) Hypomagnesemia: Plan: See hypokalemia , likely PPI use/PO intake consider oral replacement at d/c if low again tomorrow or over the weekend Plan continued inpatient stay [facility] able to accept on Wednesday, updated plan w/ Admission and Anticipated Discharge Date Admission Date: November 03, 2022 Supervising Physician Co-Signing Physician Notes The patient was not seen by me. Case discussed with MARLENY Sapp. Chart reviewed. Agree with assessment and plan Subjective Patient evaluated this morning, doing well, tolerating diet. Passing lots of gas but no BM. No abdominal pain. Alert/oriented x 3, pleasant. Discussed therapy evals and recs for rehab, he is agreeable. Discussed if able to get bed for him today will plan dc on Cipro PO, otherwise may need to remain inpatient until we find a rehab. CM alerted and already talked w/ patient, awaiting return call from (attending for her brother this morning). No fever/chills, chest pain, shortness of breath. Questions/concerns addressed at this time. Physical Exam Physical Exam: General: WD elderly male sitting up in bed, NAD, general pallor noted but improved HEENT: head normocephalic, mm improved, trachea midline Resp: CTAB, no w/c/r, on room air CV: RRR, + systolic murmur 3-4/6, no pitting edema/calf tenderness GI+ BS, soft/NT : no schmitz MSK/Neuro: moves all extremities, no focal deficits Psych: Alert to person, knows in hospital, year 2022, cooperative and pleasant Skin: cool, dry Results & Data Results & Data ([facility]) Vital Signs (Past 12 Hours) Vital Signs Temp Pulse Pulse Resp BP BP Pulse Ox 11/06/22 07:14 36.5 C 59 L 18 123/65 100 11/06/22 04:00 36.7 C 59 L 20 132/70 100 11/05/22 23:02 53 L 11/05/22 23:05 36.7 C 85 20 137/69 98 11/05/22 20:27 36.9 C 64 18 146/73 H 98 O2 Del Method 11/06/22 07:14 Room Air 11/06/22 04:00 Room Air 11/05/22 23:02 11/05/22 23:05 Room Air 11/05/22 20:27 Room Air Laboratory Results 11/06/22 11/06/22 11/06/22 Range/Units 16:49 11:50 07:57 WBC (4.8-10.8) K/ul RBC (4.70-6.10) M/uL Hgb (14.0-18.0) g/dl Hct (42.0-52.0) % MCV (80.0-100.0) fL MCH (25.0-34.0) pg MCHC (32.0-36.0) g/dL RDW Std Deviation (36.4-46.3) fL RDW Coeff of Elliot (11.5-14.5) % Plt Count (130-400) K/uL MPV (9.4-12.4) fL Sodium (136-145) mmol/L Potassium (3.5-5.1) mmol/L Chloride (98-107) mmol/L Carbon Dioxide (21-32) mmol/L Anion Gap (3-11) BUN (6-23) mg/dl Creatinine (0.6-1.4) mg/dl Est Cr Clr Drug Dosing ml/min Est GFR ( Amer) ml/min Est GFR (Non-Af Amer) ml/min BUN/Creatinine Ratio (10-20) Glucose (70-99(Fasting)) mg/dl POC Glucose 113 H 215 H 140 H (70-99) mg/dl Calcium (8.5-10.1) mg/dl Magnesium (1.7-2.4) mg/dl Total Bilirubin (0.2-1.0) mg/dl AST (13-39) U/L ALT (7-52) U/L Alkaline Phosphatase (34-104) U/L Ammonia (18-72) umol/L Total Protein (6.0-8.3) gm/dl Albumin (3.4-5.0) gm/dl Globulin (2.5-4.0) gm/dl Albumin/Globulin Ratio (0.9-2) 11/06/22 11/06/22 11/06/22 Range/Units 06:02 06:02 06:02 WBC 5.37 (4.8-10.8) K/ul RBC 3.20 L (4.70-6.10) M/uL Hgb 9.3 L (14.0-18.0) g/dl Hct 27.4 L (42.0-52.0) % MCV 85.6 (80.0-100.0) fL MCH 29.1 (25.0-34.0) pg MCHC 33.9 (32.0-36.0) g/dL RDW Std Deviation 45.2 (36.4-46.3) fL RDW Coeff of Elliot 14.9 H (11.5-14.5) % Plt Count 129 L (130-400) K/uL MPV 10.5 (9.4-12.4) fL Sodium 136 (136-145) mmol/L Potassium 3.3 L (3.5-5.1) mmol/L Chloride 107 (98-107) mmol/L Carbon Dioxide 21 (21-32) mmol/L Anion Gap 8 (3-11) BUN 12 (6-23) mg/dl Creatinine 0.86 (0.6-1.4) mg/dl Est Cr Clr Drug Dosing 59.6 ml/min Est GFR ( Amer) 94.9 ml/min Est GFR (Non-Af Amer) 81.9 ml/min BUN/Creatinine Ratio 14.0 (10-20) Glucose 145 H (70-99(Fasting)) mg/dl POC Glucose (70-99) mg/dl Calcium 8.3 L (8.5-10.1) mg/dl Magnesium 1.9 (1.7-2.4) mg/dl Total Bilirubin 1.2 H (0.2-1.0) mg/dl AST 37 (13-39) U/L ALT 27 (7-52) U/L Alkaline Phosphatase 81 (34-104) U/L Ammonia 28.0 (18-72) umol/L Total Protein 5.5 L (6.0-8.3) gm/dl Albumin 3.2 L (3.4-5.0) gm/dl Globulin 2.3 L (2.5-4.0) gm/dl Albumin/Globulin Ratio 1.4 (0.9-2) 11/05/22 Range/Units 20:36 WBC (4.8-10.8) K/ul RBC (4.70-6.10) M/uL Hgb (14.0-18.0) g/dl Hct (42.0-52.0) % MCV (80.0-100.0) fL MCH (25.0-34.0) pg MCHC (32.0-36.0) g/dL RDW Std Deviation (36.4-46.3) fL RDW Coeff of Elliot (11.5-14.5) % Plt Count (130-400) K/uL MPV (9.4-12.4) fL Sodium (136-145) mmol/L Potassium (3.5-5.1) mmol/L Chloride (98-107) mmol/L Carbon Dioxide (21-32) mmol/L Anion Gap (3-11) BUN (6-23) mg/dl Creatinine (0.6-1.4) mg/dl Est Cr Clr Drug Dosing ml/min Est GFR ( Amer) ml/min Est GFR (Non-Af Amer) ml/min BUN/Creatinine Ratio (10-20) Glucose (70-99(Fasting)) mg/dl POC Glucose 188 H (70-99) mg/dl Calcium (8.5-10.1) mg/dl Magnesium (1.7-2.4) mg/dl Total Bilirubin (0.2-1.0) mg/dl AST (13-39) U/L ALT (7-52) U/L Alkaline Phosphatase (34-104) U/L Ammonia (18-72) umol/L Total Protein (6.0-8.3) gm/dl Albumin (3.4-5.0) gm/dl Globulin (2.5-4.0) gm/dl Albumin/Globulin Ratio (0.9-2) PG Care Time/CCT Total # of Minutes Spent Total Time Spent with Patient: Total time spent is greater than 50% in coordination of care (as documented) at patient's floor/unit and/or counseling patient: Coding Level of Care Code 87205 SUB INP/OBS CARE 2/35MIN Diagnoses Acute blood loss anemia D62 Encephalopathy acute G93.40 Alcohol dependence F10.20 Elevated troponin R77.8 Hypertension I10 Hypertension type: essential hypertension Depression F32.9 Diabetes mellitus, type 2 E11.9 Chronic kidney disease stage 3 subtype: stage 3a (GFR 45-59) Diabetes mellitus residential insulin use: without residential use GERD (gastroesophageal reflux disease) K21.9 Liver cirrhosis, alcoholic K70.30 Ascites presence: without ascites Hypercholesterolemia E78.00 Hypokalemia E87.6 Hypomagnesemia E83.42 (1) Diabetes mellitus, type 2 Chronic kidney disease stage 3 subtype: stage 3a (GFR 45-59) 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
[2022-11-06] MEDS: INSULIN ASPART PER UNIT SC SCH ×4 (09:18→21:39)
[2022-11-06] MEDS: PANTOprazole 40 MG TAB PO SCH ×2 (09:18→21:41)
[2022-11-06] MEDS: THIAMINE HCL 100 MG TAB PO SCH ×2 (09:19→21:41)
[2022-11-06] MEDS: amLODIPine BESYLATE 5 MG TAB PO SCH (09:19)
[2022-11-06] MEDS: FOLIC ACID 1 MG TAB PO SCH (09:19)
[2022-11-06] MEDS: VENLAFAXINE HCL XR 75 MG CAPXR PO SCH (09:19)
[2022-11-06] MEDS: buPROPion SR 150 MG TABCR PO SCH (09:19)
[2022-11-06] MEDS: cefTRIAXone SODIUM 1,000 MG in DEXTROSE 5% AD-VAN 50 ML IV SCH (09:20)
[2022-11-06] MEDS: LANTUS PER UNIT CHARGE SQ SCH ×2 (09:27→21:39)
[2022-11-06] MEDS: PROPRANOLOL HCL 20 MG TAB PO SCH ×2 (11:02→21:41)
[2022-11-06] MEDS ORDERED: LACTULOSE SYRUP 20 GM/30 ML UDC PO ONE (11:35)
[2022-11-06] MEDS ORDERED: ARTIFICIAL TEARS OP PRN (15:06)
[2022-11-06 19:09] LABS: Lyme Ab IgG w/WB Rflx Negative (Negative); Lyme Ab IgM w/WB Rflx Negative (Negative)
[2022-11-06] MEDS: ATORVASTATIN 40 MG TAB PO SCH (21:40)
[2022-11-06] MEDS: FERROUS SULFATE 325 MG TAB PO SCH (21:40)
[2022-11-07 06:43] LABS: Hematocrit (blood only) 27.2 % (42.0-52.0); Mean Corpuscular Hemoglobin 28.8 pg (25.0-34.0); Mean Corpuscular Hgb Conc 33.1 g/dL (32.0-36.0); Mean Corpuscular Volume 87.2 fL (80.0-100.0); Mean Platelet Volume 9.9 fL (9.4-12.4); Platelet Count 115 K/uL (130-400); RDW Coefficient of Variation 15.5 % (11.5-14.5); RDW Standard Deviation 47.1 fL (36.4-46.3); Red Blood Count 3.12 M/uL (4.70-6.10); White Blood Count 4.66 K/ul (4.8-10.8)
[2022-11-07 06:49] LABS: Albumin Level 3.3 gm/dl (3.4-5.0); Bilirubin Direct 0.3 mg/dl (0-0.2); Bilirubin,Total 0.9 mg/dl (0.2-1.0); Calcium 8.2 mg/dl (8.5-10.1); Magnesium 1.7 mg/dl (1.7-2.4); Potassium 3.1 mmol/L (3.5-5.1)
[2022-11-07 07:20] LABS: BUN Creatinine Ratio 14.9 (10-20); Creatinine Clr Calc Pharmacy 58.9 ml/min; Est GFR (African American) 94.5 ml/min; Est GFR (Non-African American) 81.5 ml/min; Total Protein 5.5 gm/dl (6.0-8.3)
[2022-11-07] MEDS: INSULIN ASPART PER UNIT SC SCH ×4 (08:16→20:41)
[2022-11-07] MEDS: LANTUS PER UNIT CHARGE SQ SCH ×2 (08:17→20:40)
[2022-11-07] MEDS: buPROPion SR 150 MG TABCR PO SCH (08:21)
[2022-11-07] MEDS: THIAMINE HCL 100 MG TAB PO SCH ×2 (08:21→20:39)
[2022-11-07] MEDS: amLODIPine BESYLATE 5 MG TAB PO SCH (08:21)
[2022-11-07] MEDS: FOLIC ACID 1 MG TAB PO SCH (08:21)
[2022-11-07] MEDS: cefTRIAXone SODIUM 1,000 MG in DEXTROSE 5% AD-VAN 50 ML IV SCH (08:22)
[2022-11-07] MEDS: PROPRANOLOL HCL 20 MG TAB PO SCH ×2 (08:22→20:40)
[2022-11-07] MEDS: PANTOprazole 40 MG TAB PO SCH ×2 (08:22→20:39)
[2022-11-07] MEDS: VENLAFAXINE HCL XR 75 MG CAPXR PO SCH (08:23)
[2022-11-07] MEDS ORDERED: POTASSIUM CHLORIDE CRTAB 20 MEQ TABCR PO STA (08:38)
--- NOTE | 2022-11-07 08:44 | Hospitalist Progress Note ---
Date of Service November 07, 2022 Assessment & Plan (1) Acute blood loss anemia: Plan: Hgb in 9-10 range over the past year. Dealing w/ issues w/ anemia for years, follows w/ [facility] for anemia. Has hx cirrhosis w/ hx varices Hgb 6.9 on admit, heme + stool Started on protonix gtt, octreotide gtt GI consulted s/p 2u PRBC EGD 11/04 w/ Case revealed grade I esophageal varices, small hiatal hernia, erosive gastropathy with active bleeding. clips (MR conditional) were placed. Could consider TIPS at tertiary care center is bleeding persists. D/c'd Octreotide Transition Protonix gtt to PO BID -- continue at d/c Clear liquid diet --> advanced to DM/AHA diet, tolerating hgb stable at 9.3, currently 9.0 but having multiple blood draws. Did have some darkened stool, no abd pain, ?if from older blood from active bleeding passing through. Will monitor subsequent BMs/hgb on repeat CBC Continue ceftriaxone IV x 7 days (day 5/7)-- discussed w/ Dr Case and will plan for Cipro BID at discharge to complete 7 days but will continue IV while inp atient Bowel regimen- did order lactulose, BM x 2 Per PT/OT, recommending rehab given weakness/balance issues (on empiric thiamine as below, etoh use). Ok'd by patient and , conveyed to CM, ref sent and auth received and [facility] Z[facility] will be able to take patient on WEDNESDAY (2) Encephalopathy acute: Plan: On admit, unknown cause ?from GI bleeding Ammonia wnl x2 CT head negative Confusion when needing transfusions in the past AOx3 for myself, intermittent confusion at times noted by staff, but at baseline per Thiamine 500mg IV x 1, additional 200mg IV, and continue PO BID -- continue at d/c B12 wnl (prior low 170) and confirmed gets injections monthly with [facility] TSh elevated, T4 wnl -- ? reactive. T3 checked for completeness and was LOW 2.1 --> rec repeating TFT in 4-6 weeks outpatient/consideration and possible replacement Alcohol cessation rec'd Lactulose given to help w/ BM but ammonia wnl/no asterixis -- consider daily low dose at d/c to prevent issues w/ constiaption/worsening confusion/weakness Maintain fall precautions, unsteady on his feet PT/OT consulted-> [facility] Zavala on wednesday (3) Alcohol dependence: Plan: Patient still drinking approximately 4-5 beers daily, last drink was on 10/31 No overt signs of alcohol withdrawal at this time AWSS at risk protocol for now and monitor on tele No evidence for DT currently B12 w/ labs -- see above, on monthly supplementation Thiamine-- no level, but replacement ordered -- would continue at d/c empirically (4) Elevated troponin: Plan: Initial trop elevated at 24, repeat 22 -- patient is asymptomatic, likely related to deman from his current anemia Patient with initial ECG with too much artifact for proper interpretation, will repeat another now NSR/SB on monitor, rates low 50s. Decreased propranolol to 20mg BID for now (5) Hypertension: Plan: Stable Continue amlodipine 5mg, propranolol 40mg BID with hold parameters DECREASED to 20mg BID given borderline HR in 40-50s day prior and currently in 50-60s consider sending 20mg PO BID at d/c pending HRs on tele over next 24 hours (6) Depression: Plan: Continue venlafaxine may need to consider reducing dose w/ hepatic impairment/cirrhosis (7) Diabetes mellitus, type 2: Plan: Hold metformin and alogliptin BSG AC/HS while inpatient Lantus 5u BID, ISS BSGs acceptable Monitor (8) GERD (gastroesophageal reflux disease): Plan: Continue IV protonix with GI bleed -- converted to PO BID (9) Liver cirrhosis, alcoholic: Plan: Stable, GI consulted while inpatient (10) Hypercholesterolemia: Plan: Continue statin (11) Hypokalemia: Plan: 3.2 in ER, mag also low --> replacement ordered, improved but K low 3.1 on AM labs and additional PO ordered Monitor BMP/mag in AM (12) Hypomagnesemia: Plan: See hypokalemia , likely PPI use/PO intake consider oral replacement at d/c if low again tomorrow or over the weekend -- started mag oxide 400mg daily, should also prevent issues w/ constipation as well hopefully. If issues w/o diarrhea w/ such consider changing to slow mag Plan continued inpatient stay [facility] able to accept on Wednesday, updated plan w/ 11/06 at bedside Admission and Anticipated Discharge Date Admission Date: November 03, 2022 Supervising Physician Co-Signing Physician Notes The patient was not seen by me. Chart reviewed. Case discussed with MARLENY Sapp. Agree with assessment and plan Subjective eval this morning, resting in bed, no acute issues. eating/drinking, moving his bowels. No chest pain/shortness of breath or abdominal pain. [place] to take for rehab tomorrow. Questions/concerns addressed at this time. Physical Exam Physical Exam: General: WD elderly male resting in bed, NAD, general pallor noted but improved from prior HEENT: head normocephalic, mm improved, trachea midline Resp: CTAB, no w/c/r, on room air CV: RRR, + systolic murmur 3-4/6, no pitting edema/calf tenderness GI+ BS, soft/NT : no schmitz MSK/Neuro: moves all extremities, no focal deficits Psych: Alert to person, knows in hospital, year 2022, cooperative and pleasant Skin: cool, dry Results & Data Results & Data ([facility]) Vital Signs (Past 12 Hours) Vital Signs Temp Pulse Pulse Resp BP BP Pulse Ox 11/07/22 07:20 36.5 C 66 20 100/54 L 99 11/07/22 07:07 56 L 11/07/22 02:38 36.8 C 62 18 115/78 98 11/06/22 22:45 36.5 C 68 20 126/68 99 11/06/22 23:07 61 O2 Del Method 11/07/22 07:20 Room Air 11/07/22 07:07 11/07/22 02:38 Room Air 11/06/22 22:45 Room Air 11/06/22 23:07 Laboratory Results 11/07/22 11/07/22 11/07/22 Range/Units 11:46 08:01 06:07 WBC (4.8-10.8) K/ul RBC (4.70-6.10) M/uL Hgb (14.0-18.0) g/dl Hct (42.0-52.0) % MCV (80.0-100.0) fL MCH (25.0-34.0) pg MCHC (32.0-36.0) g/dL RDW Std Deviation (36.4-46.3) fL RDW Coeff of Elliot (11.5-14.5) % Plt Count (130-400) K/uL MPV (9.4-12.4) fL Sodium 139 (136-145) mmol/L Potassium 3.1 L (3.5-5.1) mmol/L Chloride 111 H (98-107) mmol/L Carbon Dioxide 22 (21-32) mmol/L Anion Gap 6 (3-11) BUN 13 (6-23) mg/dl Creatinine 0.87 (0.6-1.4) mg/dl Est Cr Clr Drug Dosing 58.9 ml/min Est GFR ( Amer) 94.5 ml/min Est GFR (Non-Af Amer) 81.5 ml/min BUN/Creatinine Ratio 14.9 (10-20) Glucose 86 (70-99(Fasting)) mg/dl POC Glucose 229 H 96 (70-99) mg/dl Calcium 8.2 L (8.5-10.1) mg/dl Magnesium 1.7 (1.7-2.4) mg/dl Total Bilirubin 0.9 (0.2-1.0) mg/dl Direct Bilirubin 0.3 H (0-0.2) mg/dl AST 26 (13-39) U/L ALT 23 (7-52) U/L Alkaline Phosphatase 80 (34-104) U/L Total Protein 5.5 L (6.0-8.3) gm/dl Albumin 3.3 L (3.4-5.0) gm/dl Lyme Disease IgG Ab (Negative) Lyme Disease IgM Ab (Negative) 11/07/22 11/06/22 11/06/22 Range/Units 06:07 20:33 18:00 WBC 4.66 L (4.8-10.8) K/ul RBC 3.12 L (4.70-6.10) M/uL Hgb 9.0 L (14.0-18.0) g/dl Hct 27.2 L (42.0-52.0) % MCV 87.2 (80.0-100.0) fL MCH 28.8 (25.0-34.0) pg MCHC 33.1 (32.0-36.0) g/dL RDW Std Deviation 47.1 H (36.4-46.3) fL RDW Coeff of Elliot 15.5 H (11.5-14.5) % Plt Count 115 L (130-400) K/uL MPV 9.9 (9.4-12.4) fL Sodium (136-145) mmol/L Potassium (3.5-5.1) mmol/L Chloride (98-107) mmol/L Carbon Dioxide (21-32) mmol/L Anion Gap (3-11) BUN (6-23) mg/dl Creatinine (0.6-1.4) mg/dl Est Cr Clr Drug Dosing ml/min Est GFR ( Amer) ml/min Est GFR (Non-Af Amer) ml/min BUN/Creatinine Ratio (10-20) Glucose (70-99(Fasting)) mg/dl POC Glucose 140 H (70-99) mg/dl Calcium (8.5-10.1) mg/dl Magnesium (1.7-2.4) mg/dl Total Bilirubin (0.2-1.0) mg/dl Direct Bilirubin (0-0.2) mg/dl AST (13-39) U/L ALT (7-52) U/L Alkaline Phosphatase (34-104) U/L Total Protein (6.0-8.3) gm/dl Albumin (3.4-5.0) gm/dl Lyme Disease IgG Ab Negative (Negative) Lyme Disease IgM Ab Negative (Negative) 11/06/22 Range/Units 16:49 WBC (4.8-10.8) K/ul RBC (4.70-6.10) M/uL Hgb (14.0-18.0) g/dl Hct (42.0-52.0) % MCV (80.0-100.0) fL MCH (25.0-34.0) pg MCHC (32.0-36.0) g/dL RDW Std Deviation (36.4-46.3) fL RDW Coeff of Elliot (11.5-14.5) % Plt Count (130-400) K/uL MPV (9.4-12.4) fL Sodium (136-145) mmol/L Potassium (3.5-5.1) mmol/L Chloride (98-107) mmol/L Carbon Dioxide (21-32) mmol/L Anion Gap (3-11) BUN (6-23) mg/dl Creatinine (0.6-1.4) mg/dl Est Cr Clr Drug Dosing ml/min Est GFR ( Amer) ml/min Est GFR (Non-Af Amer) ml/min BUN/Creatinine Ratio (10-20) Glucose (70-99(Fasting)) mg/dl POC Glucose 113 H (70-99) mg/dl Calcium (8.5-10.1) mg/dl Magnesium (1.7-2.4) mg/dl Total Bilirubin (0.2-1.0) mg/dl Direct Bilirubin (0-0.2) mg/dl AST (13-39) U/L ALT (7-52) U/L Alkaline Phosphatase (34-104) U/L Total Protein (6.0-8.3) gm/dl Albumin (3.4-5.0) gm/dl Lyme Disease IgG Ab (Negative) Lyme Disease IgM Ab (Negative) PG Care Time/CCT Total # of Minutes Spent Total Time Spent with Patient: Total time spent is greater than 50% in coordination of care (as documented) at patient's floor/unit and/or counseling patient: Coding Level of Care Code 18512 SUB INP/OBS CARE 2/35MIN Diagnoses Acute blood loss anemia D62 Encephalopathy acute G93.40 Alcohol dependence F10.20 Elevated troponin R77.8 Hypertension I10 Hypertension type: essential hypertension Depression F32.9 Diabetes mellitus, type 2 E11.9 Chronic kidney disease stage 3 subtype: stage 3a (GFR 45-59) Diabetes mellitus fdc insulin use: without fdc use GERD (gastroesophageal reflux disease) K21.9 Liver cirrhosis, alcoholic K70.30 Ascites presence: without ascites Hypercholesterolemia E78.00 Hypokalemia E87.6 Hypomagnesemia E83.42 (1) Diabetes mellitus, type 2 Chronic kidney disease stage 3 subtype: stage 3a (GFR 45-59) Diabetes mellitus fdc insulin use: without fdc use (2) Liver cirrhosis, alcoholic Ascites presence: without ascites Qualified Code(s): K70.30 - Alcoholic cirrhosis of liver without ascites (3) Hypertension Hypertension type: essential hypertension Qualified Code(s): I10 - Essential (primary) hypertension
[2022-11-07] MEDS: MAGNESIUM OXIDE 400 MG TAB PO SCH (09:29)
[2022-11-07] MEDS: FERROUS SULFATE 325 MG TAB PO SCH (20:39)
[2022-11-07] MEDS: ATORVASTATIN 40 MG TAB PO SCH (20:40)
[2022-11-08 07:34] LABS: Hematocrit (blood only) 26.3 % (42.0-52.0); Hemoglobin 8.8 g/dl (14.0-18.0); Mean Corpuscular Hemoglobin 28.9 pg (25.0-34.0); Mean Corpuscular Hgb Conc 33.5 g/dL (32.0-36.0); Mean Corpuscular Volume 86.5 fL (80.0-100.0); Mean Platelet Volume 11.1 fL (9.4-12.4); Platelet Count 120 K/uL (130-400); RDW Coefficient of Variation 15.3 % (11.5-14.5); RDW Standard Deviation 47.2 fL (36.4-46.3); Red Blood Count 3.04 M/uL (4.70-6.10); White Blood Count 4.49 K/ul (4.8-10.8)
[2022-11-08] MEDS: PROPRANOLOL HCL 20 MG TAB PO SCH (07:38)
[2022-11-08] MEDS: FOLIC ACID 1 MG TAB PO SCH (07:39)
[2022-11-08] MEDS: THIAMINE HCL 100 MG TAB PO SCH (07:39)
[2022-11-08] MEDS: PANTOprazole 40 MG TAB PO SCH (07:39)
[2022-11-08] MEDS: buPROPion SR 150 MG TABCR PO SCH (07:39)
[2022-11-08] MEDS: MAGNESIUM OXIDE 400 MG TAB PO SCH (07:39)
[2022-11-08] MEDS: cefTRIAXone SODIUM 1,000 MG in DEXTROSE 5% AD-VAN 50 ML IV SCH (07:39)
[2022-11-08 07:41] LABS: Calcium 8.6 mg/dl (8.5-10.1); Magnesium 1.7 mg/dl (1.7-2.4); Potassium 3.5 mmol/L (3.5-5.1)
[2022-11-08 07:47] LABS: BUN Creatinine Ratio 18.8 (10-20); Creatinine Clr Calc Pharmacy 64.1 ml/min; Est GFR (African American) 97.8 ml/min; Est GFR (Non-African American) 84.4 ml/min
[2022-11-08] MEDS: amLODIPine BESYLATE 5 MG TAB PO SCH (08:31)
[2022-11-08] MEDS: VENLAFAXINE HCL XR 75 MG CAPXR PO SCH (08:31)
[2022-11-08] MEDS: INSULIN ASPART PER UNIT SC SCH (08:46)
[2022-11-08] MEDS: LANTUS PER UNIT CHARGE SQ SCH (08:46)
--- NOTE | 2022-11-08 08:50 | Hospitalist Progress Note ---
Date of Service November 08, 2022 Assessment & Plan (1) Acute blood loss anemia: Plan: Hgb in 9-10 range over the past year. Dealing w/ issues w/ anemia for years, follows w/ [facility] for anemia. Has hx cirrhosis w/ hx varices Hgb 6.9 on admit, heme + stool Started on protonix gtt, octreotide gtt GI consulted s/p 2u PRBC EGD 11/04 w/ Case revealed grade I esophageal varices, small hiatal hernia, erosive gastropathy with active bleeding. clips (MR conditional) were placed. Could consider TIPS at tertiary care center is bleeding persists. D/c'd Octreotide Transition Protonix gtt to PO BID -- continue at d/c Clear liquid diet --> advanced to DM/AHA diet, tolerating hgb stable at 9.3, currently 9.0 but having multiple blood draws. Did have some darkened stool, no abd pain, ?if from older blood from active bleeding passing through. Will monitor subsequent BMs/hgb on repeat CBC Continue ceftriaxone IV x 7 days (day 5/7)-- discussed w/ Dr Case and will plan for Cipro BID at discharge to complete 7 days but will continue IV while inp atient Bowel regimen- did order lactulose, BM x 2 Per PT/OT, recommending rehab given weakness/balance issues (on empiric thiamine as below, etoh use). Ok'd by patient and , conveyed to CM, ref sent and auth received and [facility] will be able to take patient on WEDNESDAY (2) Encephalopathy acute: Plan: On admit, unknown cause ?from GI bleeding Ammonia wnl x2 CT head negative Confusion when needing transfusions in the past AOx3 for myself, intermittent confusion at times noted by staff, but at baseline per Thiamine 500mg IV x 1, additional 200mg IV, and continue PO BID -- continue at d/c B12 wnl (prior low 170) and confirmed gets injections monthly with [facility] TSh elevated, T4 wnl -- ? reactive. T3 checked for completeness and was LOW 2.1 --> rec repeating TFT in 4-6 weeks outpatient/consideration and possible replacement Alcohol cessation rec'd Lactulose given to help w/ BM but ammonia wnl/no asterixis -- consider daily low dose at d/c to prevent issues w/ constiaption/worsening confusion/weakness Maintain fall precautions, unsteady on his feet PT/OT consulted-> [facility] on wednesday (3) Alcohol dependence: Plan: Patient still drinking approximately 4-5 beers daily, last drink was on 10/31 No overt signs of alcohol withdrawal at this time AWSS at risk protocol for now and monitor on tele No evidence for DT currently B12 w/ labs -- see above, on monthly supplementation Thiamine-- no level, but replacement ordered -- would continue at d/c empirically (4) Elevated troponin: Plan: Initial trop elevated at 24, repeat 22 -- patient is asymptomatic, likely related to deman from his current anemia Patient with initial ECG with too much artifact for proper interpretation, will repeat another now NSR/SB on monitor, rates low 50s. Decreased propranolol to 20mg BID for now (5) Hypertension: Plan: Stable Continue amlodipine 5mg, propranolol 40mg BID with hold parameters DECREASED to 20mg BID given borderline HR in 40-50s day prior and currently in 50-60s consider sending 20mg PO BID at d/c pending HRs on tele over next 24 hours (6) Depression: Plan: Continue venlafaxine may need to consider reducing dose w/ hepatic impairment/cirrhosis (7) Diabetes mellitus, type 2: Plan: Hold metformin and alogliptin BSG AC/HS while inpatient Lantus 5u BID, ISS BSGs acceptable Monitor (8) GERD (gastroesophageal reflux disease): Plan: Continue IV protonix with GI bleed -- converted to PO BID (9) Liver cirrhosis, alcoholic: Plan: Stable, GI consulted while inpatient (10) Hypercholesterolemia: Plan: Continue statin (11) Hypokalemia: Plan: 3.2 in ER, mag also low --> replacement ordered, improved but K low 3.1 on AM labs and additional PO ordered Monitor BMP/mag in AM (12) Hypomagnesemia: Plan: See hypokalemia , likely PPI use/PO intake consider oral replacement at d/c if low again tomorrow or over the weekend -- started mag oxide 400mg daily, should also prevent issues w/ constipation as well hopefully. If issues w/o diarrhea w/ such consider changing to slow mag Plan continued inpatient stay [facility] able to accept on Wednesday, updated plan w/ 11/06 at bedside Admission and Anticipated Discharge Date Admission Date: November 03, 2022 Results & Data Results & Data ([facility]) Vital Signs (Past 12 Hours) Vital Signs Temp Pulse Pulse Resp BP Pulse Ox O2 Del Method 11/08/22 07:50 36.9 C 64 20 157/75 H 98 Room Air 11/08/22 07:15 62 11/08/22 03:34 36.6 C 63 18 131/75 100 Room Air 11/07/22 22:54 36.9 C 58 L 18 138/66 97 Room Air 11/07/22 22:00 58 L Laboratory Results 11/08/22 11/08/22 11/08/22 Range/Units 07:50 06:35 06:35 WBC 4.49 L (4.8-10.8) K/ul RBC 3.04 L (4.70-6.10) M/uL Hgb 8.8 L (14.0-18.0) g/dl Hct 26.3 L (42.0-52.0) % MCV 86.5 (80.0-100.0) fL MCH 28.9 (25.0-34.0) pg MCHC 33.5 (32.0-36.0) g/dL RDW Std Deviation 47.2 H (36.4-46.3) fL RDW Coeff of Elliot 15.3 H (11.5-14.5) % Plt Count 120 L (130-400) K/uL MPV 11.1 (9.4-12.4) fL Sodium 141 (136-145) mmol/L Potassium 3.5 (3.5-5.1) mmol/L Chloride 112 H (98-107) mmol/L Carbon Dioxide 24 (21-32) mmol/L Anion Gap 5 (3-11) BUN 15 (6-23) mg/dl Creatinine 0.80 (0.6-1.4) mg/dl Est Cr Clr Drug Dosing 64.1 ml/min Est GFR ( Amer) 97.8 ml/min Est GFR (Non-Af Amer) 84.4 ml/min BUN/Creatinine Ratio 18.8 (10-20) Glucose 109 H (70-99(Fasting)) mg/dl POC Glucose 124 H (70-99) mg/dl Calcium 8.6 (8.5-10.1) mg/dl Magnesium 1.7 (1.7-2.4) mg/dl 11/07/22 11/07/22 11/07/22 Range/Units 20:13 16:46 11:46 WBC (4.8-10.8) K/ul RBC (4.70-6.10) M/uL Hgb (14.0-18.0) g/dl Hct (42.0-52.0) % MCV (80.0-100.0) fL MCH (25.0-34.0) pg MCHC (32.0-36.0) g/dL RDW Std Deviation (36.4-46.3) fL RDW Coeff of Elliot (11.5-14.5) % Plt Count (130-400) K/uL MPV (9.4-12.4) fL Sodium (136-145) mmol/L Potassium (3.5-5.1) mmol/L Chloride (98-107) mmol/L Carbon Dioxide (21-32) mmol/L Anion Gap (3-11) BUN (6-23) mg/dl Creatinine (0.6-1.4) mg/dl Est Cr Clr Drug Dosing ml/min Est GFR ( Amer) ml/min Est GFR (Non-Af Amer) ml/min BUN/Creatinine Ratio (10-20) Glucose (70-99(Fasting)) mg/dl POC Glucose 222 H 130 H 229 H (70-99) mg/dl Calcium (8.5-10.1) mg/dl Magnesium (1.7-2.4) mg/dl PG Care Time/CCT Total # of Minutes Spent Total Time Spent with Patient: Total time spent is greater than 50% in coordination of care (as documented) at patient's floor/unit and/or counseling patient: Coding Diagnoses Acute blood loss anemia D62 Encephalopathy acute G93.40 Alcohol dependence F10.20 Elevated troponin R77.8 Hypertension I10 Hypertension type: essential hypertension Depression F32.9 Diabetes mellitus, type 2 E11.9 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 care 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 Chronic kidney disease stage 3 subtype: stage 3a (GFR 45-59) GERD (gastroesophageal reflux disease) K21.9 Liver cirrhosis, alcoholic K70.30 Ascites presence: without ascites Hypercholesterolemia E78.00 Hypokalemia E87.6 Hypomagnesemia E83.42 (1) Hypertension Hypertension type: essential hypertension Qualified Code(s): I10 - Essential (primary) hypertension (2) Diabetes mellitus, type 2 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
--- NOTE | 2022-11-08 09:25 | Discharge Summary ---
Date of Service November 08, 2022 Admission HPI Per Admitting Provider Chief Complaint: Confusion & UTI symptoms Primary Care Provider: IRISH Viveros Gary is an 82 year old male with a PMH of alcoholic cirrhosis, last EGD in 2021 showing grade 1 esophageal varices, gastritis, normal duodenum, multiple gastric polyps, and a small hiatal hernia, alcohol abuse, vestibular schwannoma cause imbalance, HTN, DM II, GERD, hypercholesterolemia, and previous C3-T1 cervicothoracic fusion in 2019 who presented to the [facility] ED on 11/03/22 via EMS for confusion and concern for possible UTI. In the ED the patient was found to be afebrile, hemodynamically stable, and stable on RA. Labs were remarkable for a WBC of 4.74, absolute neutrophil count of 2.94, hgb of 6.9 (down from 9.7 as of 09/21/2022), INR of 1.3, stable Cr of 0.8, elevated BUN of 26, sodium of 141, potassium of 3.2, mag of 1.3, calcium of 9.3, glucose of 154, ammonia of 44, LFTs all WNL, initial high sensitivity trop of 24.6, initial TSH of 5.1 with Free T4 WNL, UA not suggestive of UTI, Stool occult blood positive. CT of the head was read as "No significant change compared to the prior study. No acute intracranial abnormality.". Chest xray was read as "No significant change compared to the prior study. No acute process.". Prior to admission the patient was consented for blood and ordered 2 units PRBCs by the ED, started on started on a Protonix drip, and was given 500 mL NSS bolus. Per chart review, the patient's last colonoscopy was in 2020 and showed multiple small-mouthed diverticula in the sigmoid colon without other acute findings. At the time of the exam the patient was resting in bed in no acute distress. History was difficult to obtain due to the patient's current mental status. He is having a difficult time expressing what he wants to say. He is able to answer simple yes or no questions and denies any pain at the time of the exam, including chest pain. I was able to call his , Danita Briseno ([phone]) to get more oh the history and confirm his medications. She explains that the patient was in his normal state of health until Wednesday (10/31). She states that the patient started to experience the same word finding difficulties which were seen on exam today. She denies any other neurologic issues and states that he was still able to ambulate with his walker. She states that he has gotten like this before for his blood loss anemia. She states that the patient is followed for his anemia in the cancer center and they have given him iron infusions previously. She also states that when he has needed blood in the past this is how he presents. When asked, she states that the patient still drinks 4-5 beers daily, his last drink was on Wednesday (10/31). She states that he has not had any of his medications since 10/31 due to his altered mental status. She states that the patient had one episode of non-bloody emesis on 10/31 but has had no other episodes since. I spoke to her regarding code status, the patient is a Full Code and she is his primary medical decision maker if he cannot make decisions himself. Please refer to Dr. Wilkes's attestation for any changes to the treatment plan Allergies Admission Exam Per Admitting Provider Physical Exam: General:In no acute distress, pleasantly confused at the time of the exam, good hygiene, non-toxic appearing HEENT:Normocephalic, atraumatic, no scleral icterus, pupils around round, symmetrical, and reactive to light, moist mucus membranes, trachea midline, no thyromegaly Chest/Pulm:No respiratory distress, symmetrical chest expansion, clear breath sounds throughout Cardiac:RRR, systolic murmur noted Abdomen:Negative for ascites and bruising, normoactive bowel sounds, soft, non-tender to palpation throughout Musculoskeletal:Symmetrical and without signs of acute trauma, upper and lower extremities with full ROM, no atrophy, spasticity, or flaccidity Extremities:Radial, dorsalis pedis, and posterior tibial pulses are intact and symmetrical, no edema noted in the BL LE's Skin:Warm, dry, no rashes , lesions, or scars noted Neuro:Alert, oriented to person only, pleasantly confused, patient has difficulty verbalizing his thoughts and becomes visibly frustrated at times, CN II-XII tested and intact, no tremor noted Psych:No acute distress, calm/pleasantly confused and cooperative during the exam Principal Diagnosis Acute GI Bleeding Discharge Exam General: WD elderly male resting in bed, NAD, general pallor noted but improved from prior HEENT: head normocephalic, mm improved, trachea midline Resp: CTAB, no w/c/r, on room air CV: RRR, + systolic murmur 3-4/6, no pitting edema/calf tenderness GI+ BS, soft/NT : no schmitz MSK/Neuro: moves all extremities, no focal deficits Psych: Alert to person, knows in hospital, year 2022, cooperative and pleasant Skin: cool, dry Discharge Data Allergies Allergy/AdvReac Type Severity Reaction Status Date / Time No Known Drug Allergies Allergy Unknown Verified 05/27/22 13:38 Consultations 11/03/22 10:55 ED Decision to Admit Stat 11/03/22 11:58 Consult Gastroenterology Routine Procedures Performed Operation Date: 11/04/22 16:55 Actual Procedures p Esophagogastroduodenoscopy - Ashwin G. Case, DO Ordered Studies Head CT 11/03/22 09:[address] DOSE: 614.27 mGy.cm HISTORY: confusion TECHNIQUE: Multiaxial CT images of the head were performed without the use of intravenous contrast. Automated exposure control was utilized for this study. A dose lowering technique was utilized adhering to the principles of ALARA. Comparison: Head CT 03/26/2021. Findings: The paranasal sinuses and mastoid air cells are clear. The calvarium and skull base are intact. There is no mass, hematoma, midline shift, acute infa rct. White matter hypodensity is nonspecific but suggestive of microvascular ischemic change. The ventricles and sulci demonstrate mild age-related involutional changes. Impression: No significant change compared to the prior study. No acute intracranial abnormality. ACT 112: Negative or not required by law. Electronically signed by: Jose Barriga M.D. 11/03/2022 10:30 AM Chest X-Ray 11/03/22 09:42 XR chest 1V portable HISTORY: weakness COMPARISON: Chest 05/30/2022. FINDINGS: There are low lung volumes. The cardiac silhouette remains top normal in size. The lungs are clear. Cervical spinal fusion hardware is again noted. Degenerative changes within the shoulders. No evidence for pulmonary edema. Calcifications within the aortic knob. Right paratracheal fullness remain stable and is likely due to the normal vascular structures. IMPRESSION: No significant change compared to the prior study. No acute process. ACT 112: Negative or not required by law. Electronically signed by: Jose Barriga M.D. 11/03/2022 11:01 AM Hospital Course (1) Acute blood loss anemia: Hgb in 9-10 range over the past year. Dealing w/ issues w/ anemia for years, follows w/ [facility] for anemia. Has hx cirrhosis w/ hx varices Hgb 6.9 on admit, heme + stool Started on protonix gtt, octreotide gtt GI consulted s/p 2u PRBC , hgb improved to 9.5 EGD 11/04 w/ Dr Case revealed grade I esophageal varices, small hiatal hernia, erosive gastropathy with active bleeding. clips (MR conditional) were placed. Could consider TIPS at tertiary care center is bleeding persists. D/c'd Octreotide Transition Protonix gtt to PO BID -- continued at d/c tolerating advanced diet, initially darker stools but subsequently turned brown per patient. No abdmonial pain. Rec'd repeating hgb in next 1-2 days at rehab to ensure stability NO abdominal pain, chest pain or shortness of breath reported Hgb 8.8 prior to discharge, but multiple lab draws, no further bleeding. Mental status at baseline and alert/oriented for myself Continued ceftriaxone IV (received 6 days inpatient), discussed w/ Case and to send on Cipro BID to complete 7 day course. 1 additional day after discharge as he received Rocephin prior to d/c PT/OT recs rehab given weakness/balance issues (chronic, has seen neurosurgery in past as well, placed on empiric thiamine given etoh use and sent at d/c, also encouraged CESSATION of alcohol use). No DTs while inpatient and no need for ativan use either Arranged for [facility] for SNF (2) Encephalopathy acute: On admit, unknown cause ?from GI bleeding Ammonia wnl x2 CT head negative Confusion when needing transfusions in the past per Thiamine 500mg IV x 1, additional 200mg IV, and continue PO BID -- continued empiric thiamine at d/c B12 wnl (prior low 170) and confirmed gets injections monthly with [facility]CP TSh elevated, T4 wnl -- ? reactive. T3 checked for completeness and was LOW 2.1--> rec repeating TFT in 4-6 weeks outpatient/consideration and possible replacement Alcohol cessation rec'd Lactulose given to help w/ BM but ammonia wnl/no asterixis -- consider daily low dose in follow up if any issues w/ constipation PT/OT and SNF arranged (3) Alcohol dependence: Patient still drinking approximately 4-5 beers daily, last drink was on 10/31 No overt signs of alcohol withdrawal at this time AWSS at risk protocol for now and monitored on telemetry NO DTs while inpatient B12 w/ labs -- see above, on monthly supplementation Thiamine-- no level, but replacement ordered -- continued at d/c empirically (4) Elevated troponin: Initial trop elevated at 24, repeat 22 -- patient is asymptomatic, likely related to deman from his current anemia Patient with initial ECG with too much artifact for proper interpretation, will repeat another now NSR/SB on monitor 11/07, rates low 50s. Decreased propranolol to 20mg BID and BPs stable and HRs improved and sent on 20mg PO BID (5) Hypertension: Stable Continued amlodipine 5mg, propranolol 40mg BID with hold parameters DECREASED to 20mg BID given borderline HR in 40-50s day prior and currently in 50-60s given weakness/balance issues. No symptomatic bradycardia but this is not excluded. Did have 1st AV block but denied symptoms of such. Lyme negative F/u PCP if any issues (6) Depression: Continue venlafaxine --> may need to consider reducing dose w/ hepatic impairment/cirrhosis in follow up with PCP (7) Diabetes mellitus, type 2: Held metformin and alogliptin BSG AC/HS while inpatient Lantus 5u BID, ISS while inpatient and BSGs acceptable Prior A1c in system 2021 5.1, rec f/u PCP for repeat testing. Did not have any hypoglycemia noted on admit to contribute to confusion Resumed home meds at discharge (8) GERD (gastroesophageal reflux disease): Continued IV protonix with GI bleed initially, stable w/ conversion to PO BID and continued at d/c (9) Liver cirrhosis, alcoholic: Stable, GI consulted while inpatient -- see above outpt f/u rec cessation alcohol B12/folate/thiamine replacement -- empiric thiamine at d/c, continue folate. Gets B12 though [facility] (10) Hypercholesterolemia: Continued statin (11) Hypokalemia: low, 2nd to PO intake, replacement ordered K 3.5 prior to discharge (12) Hypomagnesemia: See hypokalemia , likely PPI use/PO intake Stable x 2 w/ oral mag oxide, sent daily at d/c to help w/ constipation issues as well If any issues w/ diarrhea consider slow mag in follow up with PCP Plan Discharged to [facility] for SNF Repeat CBC in next 1-2 days Continue PPI BID, follow up GI outpatient. Rec abstaining from alcohol. Empiric thiamine at discharge. If patient were to have repeated bleeding in future, GI recs [facility] for consideration for TIPS procedure Reduced propranolol to 20mg BID given low HR to 40s, improved to 50-60s w/ such. Also rec f/u TFT outpatient to ensure normalized on repeat and no supplementation needed. Total Time Total Time Spent Total Time Spent (In Minutes): 45 Discharge Plan Discharge Items Patient Disposition: Transfer [facility] Fac Reason For Visit: CONFUSION Discharge Diagnosis: Acute GI Bleeding Goals: You have been hospitalized for an acute medical problem. During your stay at [facility], we have made an effort to correct the problem that brought you to the hospital while keeping you as comfortable as possible. Medications were used to bring your condition under control and your discharge instructions will include directions for any medications you should take after leaving the hospital. Please make sure you see your Primary Care Provider as part of your follow up plan. Activity: As commented below Non-emergency contact: Primary Care Provider and Business Administration Program Chair Call non-emergency contact if: you have any medication questions, your symptoms worsen and you have a fever Follow-up/Referrals: Elliott Ng CRNP [Primary Care Provider] - Ashwin Nava DO [Physician] - Diet: Heart Healthy Addtl Attending Provider Instructions: You have been hospitalized for confusion and acute drop in your hemoglobin. You were given blood and gastroenterology was consulted and you underwent EGD which showed actively bleeding polyps which were treated and clipped. Your hemoglobin has been stable and stools have normalized. We are recommending you have repeat blood count (CBC) drawn on Wednesday to ensure labs are stable. You are being continued on ciprofloxacin for antibiotics and these will be continued twice a day for one more day per Dr Nava's recommendations. You already got your antibiotics for today, so this should start tomorrow, twice daily for 2 more doses. You should continue Protonix twice daily. You will be continued on thiamine empirically given balance issues and drinking. It is strongly encouraged to stop drinking to prevent further bleeding/complications. If you have any evidence for rebleeding in the future, Dr Nava has recommended referral to tertiary care for consideration for a procedure called a TIPS to decrease the pressures in this system that contribute to varices. I did decrease your propranolol to 20mg twice daily as your heart rates were on the lower side to prevent low blood pressures as well and potential falls. Therapy evaluated you and you have been set up for rehab at discharge. Please follow up with PCP in the next 7-10 days, and GI in the next 1-2 weeks to monitor your progress. Please return to the ER with any worsening confusion, chest pain, shortness of breath, bleeding, or for any other symptoms concerning for you. Take care! Pending Studies at Discharge: No Stand-Alone Forms: My [facility] Skilled Items Patient informed of condition?: Yes DNR: No Discharge Level of Care: Skilled Communicable Disease: No Discharge Prognosis: Stable Lines: None Urinary Catheter: No Medications and DC Order Prescriptions: New magnesium oxide 400 mg (241.3 mg magnesium) Tablet 400 mg PO QAM Qty: 30 0RF propranolol 20 mg Tablet 20 mg PO BID Qty: 60 0RF thiamine HCl (vitamin B1) 100 mg Tablet 200 mg PO BID Qty: 60 0RF ciprofloxacin HCl 500 mg tablet 500 mg PO Q12H Qty: 2 0RF Continued lidocaine [Lidoderm] 5 % adhesive patch,medicated 1 patch topical DAILY PRN (Reason: Pain) Rx Instructions: leave on most painful area for up to 12 hrs diclofenac sodium [Voltaren Arthritis Pain] 1 % gel 2 g topical QID PRN (Reason: Pain) Rx Instructions: apply to single elbow, wrist or hand; for hand includes palm/fingers/back of hand metformin 1,000 mg tablet 1,000 mg PO BID Qty: 180 4RF meclizine 25 mg tablet 25 mg PO BID PRN (Reason: dizziness) Qty: 20 0RF amlodipine 5 mg tablet 5 mg PO QAM alogliptin 25 mg tablet 25 mg PO QAM ascorbic acid (vitamin C) 250 mg tablet 250 mg PO QAM cholecalciferol (vitamin D3) 25 mcg (1,000 unit) capsule 25 mcg PO QAM ferrous sulfate 325 mg (65 mg iron) tablet 325 mg PO HS bupropion HCl [Wellbutrin SR] 150 mg tablet sustained-release 12 hr 150 mg PO QAM ondansetron 4 mg tablet,disintegrating 4 mg PO Q6H PRN (Reason: Nausea And Vomiting) Qty: 30 2RF fluticasone propionate 50 mcg/actuation spray,suspension 2 spray intranasal DAILY Qty: 16 2RF Rx Instructions: administer into each nostril atorvastatin 80 mg tablet 80 mg PO HS venlafaxine 75 mg capsule,extended release 24hr 225 mg PO QAM hydrocodone-acetaminophen 10-325 mg Tablet 1 tab PO BID PRN (Reason: Pain) gabapentin 100 mg Capsule 400 mg PO HS pantoprazole 40 mg tablet,delayed release (DR/EC) 40 mg PO BID Qty: 60 2RF Discontinued propranolol 40 mg tablet 40 mg PO BID Discharge Orders: Discharge Order (Routine); Ordered 11/08/22 Ordered By: Alice Crenshaw Admission Data Admit Date/Time: 11/03/22 11:13 Attending Provider: Daniel Pace Admit Provider: Duane Wilkes Primary Care Provider: Elliott Ng Other Providers: Duane Wilkes ; Ariana Banda ; Ashwin Nava ; Yamilet Orellana ; Agueda Scott ; Mona Lyle ; Aleksandra Drake ; Jamaal Cordova ; Mynor Rizzo ; Melanie Pa ; Damaso Kaufman ; Jl Harris ; Violetta Gilmore ; Duyen Smith ; Karen Hare ; Yessy Villegas ; Mick Campuzano ; Donaldo Carrillo ; Demetrius Mcbride ; Catie Jacob ; Jamie Ortiz Jr ; [facility] ; [facility] Other Interventions: Discharge Summary Assessment (RN) Last Done: 11/08/22 10:14 Supervising Physician Co-Signing Physician Notes The patient was seen by me. Case discussed with MARLENY Sapp. 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
== END 2022-11-08 11:45 | DRG 378 ==
LOC: ED 09:30 → SUATTDRO 11:13 → 2N 11:13

== ENCOUNTER 2023-01-21 10:58 | Inpatient (IN) ==
[2023-01-21 12:34] LABS: Basophils # (auto) 0.02 K/uL (0-0.2); Basophils % (auto) 0.4 %; Eosinophils # (auto) 0.04 K/uL (0-0.50); Eosinophils % (auto) 0.8 %; Hematocrit (blood only) 30.6 % (42.0-52.0); Hemoglobin 9.8 g/dl (14.0-18.0); Immature Granulocytes # (auto) 0.01 K/uL (0.01-0.20); Immature Granulocytes % (auto) 0.2 %; Lymphocytes % (auto) 18.9 %; Mean Corpuscular Hemoglobin 27.7 pg (25.0-34.0); Mean Corpuscular Volume 86.4 fL (80.0-100.0); Mean Platelet Volume 9.2 fL (9.4-12.4); Monocytes # (auto) 0.72 K/uL (0.11-0.59); Monocytes % (auto) 15.2 %; Neutrophils # (auto) 3.06 K/uL (1.40-6.50); Neutrophils % (auto) 64.5 %; Platelet Count 190 K/uL (130-400); RDW Coefficient of Variation 16.5 % (11.5-14.5); RDW Standard Deviation 52.3 fL (36.4-46.3); Red Blood Count 3.54 M/uL (4.70-6.10); White Blood Count 4.75 K/ul (4.8-10.8)
--- NOTE | 2023-01-21 12:49 | Emergency Department Note ---
History of Present Illness General Chief complaint: Illness Time Seen by Provider: 01/21/23 12:07 Source: EMS and RN notes reviewed History of Present Illness Provider complaint: Weakness fall Maximum Pain Intensity: 6 82-year-old male with history of alcoholism varices and encephalopathy presents emergency department via EMS. Per nursing who took the report from EMS the patient fell on Wednesday, 4 days ago and since then has been more lethargic and not eating or drinking. Patient states he has not been drinking alcohol recently. Home Medications Medication Instructions Recorded Confirmed Type atorvastatin 80 mg tablet 80 mg PO QAM 06/13/19 01/21/23 History alogliptin 25 mg tablet 25 mg PO QAM 08/02/20 01/21/23 History amlodipine 5 mg tablet 5 mg PO QAM 12/10/20 01/21/23 History diclofenac sodium 1 % topical gel 2 g topical QID PRN Pain 05/13/21 01/21/23 History (Voltaren Arthritis Pain) lidocaine 5 % topical patch 1 patch topical DAILY 05/13/21 01/21/23 History (Lidoderm) ascorbic acid (vitamin C) 250 mg 250 mg PO QAM 08/20/21 01/21/23 History tablet cholecalciferol (vitamin D3) 25 25 mcg PO QAM 08/20/21 01/21/23 History mcg (1,000 unit) capsule bupropion HCl 150 mg tablet,12 hr 150 mg PO QAM 04/27/22 01/21/23 History sustained-release (Wellbutrin SR) levothyroxine 25 mcg tablet 25 mcg PO DAILY #90 tabs 12/30/22 01/21/23 Rx venlafaxine 75 mg capsule,extended 225 mg PO QAM 12/30/22 01/21/23 History release 24 hr ferrous sulfate 325 mg (65 mg 325 mg PO QDD 01/21/23 01/21/23 History iron) tablet,delayed release fluticasone propionate 50 1 spray intranasal QAM 01/21/23 01/21/23 History mcg/actuation nasal spray,suspension gabapentin 400 mg capsule 400 mg PO HS 01/21/23 01/21/23 History magnesium oxide 400 mg (241.3 mg 400 mg PO QAM 01/21/23 01/21/23 History magnesium) tablet meclizine 25 mg tablet 25 mg PO BID PRN Dizziness 01/21/23 01/21/23 History metformin 1,000 mg tablet 1,000 mg PO BIDM 01/21/23 01/21/23 History ondansetron 4 mg disintegrating 4 mg PO Q6H PRN Nausea 01/21/23 01/21/23 History tablet pantoprazole 40 mg tablet,delayed 40 mg PO AMHS 01/21/23 01/21/23 History release propranolol 20 mg tablet 20 mg PO AMHS 01/21/23 01/21/23 History thiamine HCl (vitamin B1) 100 mg 200 mg PO QAM 01/21/23 01/21/23 History tablet Allergies Allergy/AdvReac Type Severity Reaction Status Date / Time etodolac AdvReac n/v Verified 01/21/23 15:06 meloxicam AdvReac n/v Verified 01/21/23 15:06 Past Med/Surg History Medical History Abdominal ascites Abnormal CXR (chest x-ray) Acute pancreatitis Alcohol dependence Anemia chronic, baseline hgb 10-11 range per chart review Anxiety Bilateral primary osteoarthritis of knee Bilateral tinnitus Carpal tunnel syndrome Cervical spondylosis without myelopathy Chronic gastric ulcer remote hx per records, pt states unaware Depression Diabetes mellitus, type 2 NIDDM Encounter for pre-operative examination Esophageal stricture Esophageal varices Grade 1 small varices in the lower third of the esophagus per 09/30/20 EGD, undergoes routine surveillance EGDs Fatty liver GERD (gastroesophageal reflux disease) controlled Hiatal hernia History of gastric polyp History of prostate cancer s/p prostatectomy (1998), no chemo/no radiation Hypercholesterolemia Hypertension Hypothyroid 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 Left knee DJD Left knee DJD Liver cirrhosis, alcoholic hx small esophageal varices (09/2020) under surveillance, no banding indicated on most recent EGD, follows with [facility], stable Lumbar stenosis Neck pain with history of cervical spinal surgery Pancreatic mass Pancreatitis 2017 Pancreatitis, acute Restless legs syndrome Sensorineural hearing loss (SNHL) of both ears Symptomatic anemia Thrombocytopenia hx cirrhosis, chronic mild thrombocytopenia Surgical History History of biopsy pancreatic mass biopsy on 07/01/2020 - benign History of colonoscopy (06/2018) History of cystoscopy d/t incontinence History of esophagogastroduodenoscopy (EGD) (11/2019) 11/30/19: MAC sedation at [facility] History of laminectomy X3 History of prostatectomy History of right inguinal hernia repair History of tooth extraction Hx of cervical spine surgery (12/2019) C3-C6 laminectomy, C3-T1 PCF Hx of inguinal hernia surgery (09/14/19) Open Right Inguinal Hernia Repair with Mesh: 09/14/19: LMA#5 at [facility] S/P total knee arthroplasty 11/12/20 Dr. Khoa Fink- Right TKA Status post right knee replacement Family History Sister Family history of diabetes mellitus Breast cancer Mother Colorectal cancer Stroke Hypertension Brother Prostate cancer Colorectal cancer Father Myocardial infarction Son Thyroid disease Mother Family history of diabetes mellitus Sister Family history of diabetes mellitus Sister Family history of diabetes mellitus Other Cancer No family history of adverse response to anesthesia No family history of allergies No family history of bleeding disorder Denies family history of Ovarian cancer Hearing loss Heart disease Asthma Social History Smoking Status: Never smoker Tobacco Type: Smokeless Tobacco (Dip or Chew) Second Hand Exposure: No; Do You Dip or Chew Tobacco: No; Tobacco Cessation Education Requested by Patient: No Hx Alcohol Use: Yes Alcohol type: beer Alcohol Intake Frequency: 4 or More x per/Week Alcohol Intake Frequency Comment: at night 4-5 beers a night Hx Substance Use: No Preferred Language: Somali Communication Ability: Effective Visual Impairment: No Limitations Hearing Ability: Use of Hearing Aid Shot Hole Driller Required: No Beliefs That Will Affect Care: Orthodoxy Orthodoxy Beliefs: JEHOVAH'S WITNESS marital status: Current Living Situation: Spouse current occupational status: retired Other Information That Helps Us Care for You: No Feels Safe at Home: Yes Safety Concerns: Feels Safe At This Time Childhood Exposure to Second-Hand Smoke: No Diet Comment: regular caffeine: No during the past year weight has: remained stable Dental Care, Regularly: No Physical Activity Frequency: Daily Physical Activity Frequency Comment: limited by physical condition Seatbelt Use: always Sunscreen Use: No Assistive Devices: Glasses and Walker Assistive Devices Comment: bilateral hearing aides at home per his she wants to keep them at home Physical Exam Vital Signs Vital Signs - 24 hr 01/21/23 11:06 01/21/23 11:29 01/21/23 12:19 Temperature 36.8 C Temperature Source Oral Pulse Rate 77 77 80 Pulse Rate [Right Brachial] Pulse Rhythm Regular Regular Pulse Rhythm [Right Brachial] Pulse Strength Normal Pulse Strength [Right Brachial] Respiratory Rate 19 Respiratory Effort / Characteristics Non-Labored Spontaneous Respiratory Depth Normal Respiratory Pattern Regular Blood Pressure 126/67 Blood Pressure [Right Arm] Blood Pressure Mean 86 Blood Pressure Mean [Right Arm] Blood Pressure Position [Right Arm] Pulse Oximetry 95 98 Oxygen Delivery Method Room Air Room Air Sepsis Recent Fever Within 48 Hours No Sepsis New/Unexplained Change in Mental Status No Sepsis Action Taken by Nursing No Action Required 01/21/23 13:30 Temperature Temperature Source Pulse Rate Pulse Rate [Right Brachial] 77 Pulse Rhythm Pulse Rhythm [Right Brachial] Regular Pulse Strength Pulse Strength [Right Brachial] Normal Respiratory Rate 18 Respiratory Effort / Characteristics Non-Labored Spontaneous Respiratory Depth Normal Respiratory Pattern Regular Blood Pressure Blood Pressure [Right Arm] 137/75 Blood Pressure Mean Blood Pressure Mean [Right Arm] 95 Blood Pressure Position [Right Arm] Lying Pulse Oximetry 96 Oxygen Delivery Method Room Air Sepsis Recent Fever Within 48 Hours Sepsis New/Unexplained Change in Mental Status Sepsis Action Taken by Nursing Physical Exam GENERAL: Somnolent but easily arousable to verbal stimuli HENT: Exam performed. - Head: Normocephalic and atraumatic. - Mouth/Throat: The oropharynx is clear and moist. No trismus in the jaw. No dental abscesses or uvula swelling. No oropharyngeal exudate or tonsillar abscesses. EYES: Conjunctivae and EOM are normal. Right eye exhibits no discharge. Left eye exhibits no discharge. No scleral icterus. NECK: Normal range of motion. Neck supple. No JVD present. No spinous process tenderness present. No tracheal deviation and normal range of motion present. CV: Normal rate, regular rhythm, normal heart sounds and intact distal pulses. There is no peripheral edema. Palpable radial pulses bue. PULM/CHEST: Effort normal and breath sounds normal. No respiratory distress. No stridor. He has no wheezes. He has no rales. ABD: The abdomen is soft.He has mild distension. There is no tenderness. MUSC/SKEL: Pelvis stable. NEURO: Somnolent. Motor and sensation grossly intact. SKIN: Pale. Course Course 1207: The patient was evaluated in room C11. A complete history and physical exam was performed Cardiac monitoring: An order was placed for continuous cardiac monitoring. The monitor shows a rate of 80 with sinus rhythm interpreted by ms 1530: Vital signs stable. Labs show white blood cell count of 4.75 hemoglobin 9.8 coagulation studies within normal limits VBG shows a venous pH of 7.38 with a venous PCO2 of 35. Electrolytes show a creatinine of 0.92 up from patient's baseline of around 0.8. Magnesium was 1.4. Magnesium repletion started in the emergency department. Ammonia level within normal limits. CK within normal limits. Urinalysis negative. Drug screen positive for opiates and MDMA. COVID-negative. Imaging shows no traumatic injury however CT of the abdomen pelvis does show ascites. Patient has no pain on palpation of the abdomen no fevers no concern for SBP. There also cysts and pseudocyst on CT exam. Patient will be admitted to the [facility] team for his EMILIO IV fluids were given to the patient in the emergency department. Patient also be admitted for his hypomagnesemia. Discussed the case with who will evaluate the patient for admission. Administered Medications Acetaminophen (Acetaminophen 500 Mg Tab) 500 mg PO Q8H PRN PRN Reason: Pain or Fever Stop: 02/20/23 17:30 Last Admin: 01/21/23 18:00 Dose: 500 mg Documented By: TANNER Sodium Chloride (Nss) 500 mls @ 125 mls/hr IV .Q4H AMNA Stop: 02/20/23 13:29 Last Admin: 01/21/23 17:54 Dose: 125 mls/hr Documented By: Infusion: 01/21/23 17:54 Dose: 125 mls/hr Documented By: Admin: 01/21/23 14:11 Dose: 125 mls/hr Documented By: TREASURE Discontinued Medications Sodium Chloride (Nss 1000ml) 500 mls @ 999 mls/hr IV .Q31M ONE Stop: 01/21/23 13:49 Last Infusion: 01/21/23 17:54 Dose: 0 mls/hr Documented By: Infusion: 01/21/23 14:10 Dose: 0 mls/hr Documented By: Admin: 01/21/23 13:24 Dose: 999 mls/hr Documented By: TREASURE Magnesium Sulfate/Dextrose (Magnesium Sulfate / D5w) 1 gm in 100 mls @ 100 mls/hr IV NOW STA Stop: 01/21/23 15:49 Last Infusion: 01/21/23 16:30 Dose: 0 mls/hr Documented By: Admin: 01/21/23 15:47 Dose: 100 mls/hr Documented By: TREASURE Medical Decision Making Laboratory Data Attestation: I reviewed the patient's lab results. 01/21/23 11:40 Lab Results 01/21/23 01/21/23 01/21/23 Range/Units 11:40 11:40 11:40 WBC 4.75 L (4.8-10.8) K/ul RBC 3.54 L (4.70-6.10) M/uL Hgb 9.8 L (14.0-18.0) g/dl Hct 30.6 L (42.0-52.0) % MCV 86.4 (80.0-100.0) fL MCH 27.7 (25.0-34.0) pg MCHC 32.0 (32.0-36.0) g/dL RDW Std Deviation 52.3 H (36.4-46.3) fL RDW Coeff of Elliot 16.5 H (11.5-14.5) % Plt Count 190 (130-400) K/uL MPV 9.2 L (9.4-12.4) fL Immature Gran % (Auto) 0.2 % Neut % (Auto) 64.5 % Lymph % (Auto) 18.9 % Barber % (Auto) 15.2 % Eos % (Auto) 0.8 % Baso % (Auto) 0.4 % Neut # (Auto) 3.06 (1.40-6.50) K/uL Lymph # (Auto) 0.90 L (1.2-3.4) K/uL Barber # (Auto) 0.72 H (0.11-0.59) K/uL Eos # (Auto) 0.04 (0-0.50) K/uL Baso # (Auto) 0.02 (0-0.2) K/uL Immature Gran # (Auto) 0.01 (0.01-0.20) K/uL PT 12.6 H (9.0-12.0) Seconds INR 1.2 H (0.9-1.1) APTT 35.6 H (21.0-31.0) Seconds PTT Ratio 1.3 VBG pH (7.36-7.41) VBG pCO2 (38-50) mmHg VBG pO2 mmHg VBG HCO3 mmol/L VBG O2 Saturation % VBG Base Excess mEq/L Sodium (136-145) mmol/L Potassium (3.5-5.1) mmol/L Chloride (98-107) mmol/L Carbon Dioxide (21-32) mmol/L Anion Gap (3-11) BUN (6-23) mg/dl Creatinine (0.6-1.4) mg/dl Est Cr Clr Drug Dosing ml/min Est GFR ( Amer) ml/min Est GFR (Non-Af Amer) ml/min BUN/Creatinine Ratio (10-20) Glucose (70-99(Fasting)) mg/dl POC Glucose (70-99) mg/dl Calcium (8.6-10.3) mg/dl Magnesium (1.7-2.4) mg/dl Total Bilirubin (0.2-1.0) mg/dl Direct Bilirubin (0-0.2) mg/dl AST (13-39) U/L ALT (7-52) U/L Alkaline Phosphatase (34-104) U/L Ammonia (18-72) umol/L Total Creatine Kinase (30-223) U/L Troponin I High Sens (0-20) pg/ml Total Protein (6.0-8.3) gm/dl Albumin (3.4-5.0) gm/dl Lipase (11-82) U/L Urine Color Urine Appearance (Clear) Urine pH (4.5-7.5) Ur Specific [place] (1.000-1.030) Urine Protein (Negative) Urine Glucose (UA) (Negative) Urine Ketones (Negative) Urine Blood (Negative) Urine Nitrite (Negative) Urine Bilirubin (Negative) Urine Urobilinogen (Negative) Ur Leukocyte Esterase (Negative) Salicylates < 3.0 L (3.0-30) mg/dl Urine Opiates Screen (Neg) Ur Methadone, Qual (Neg) Acetaminophen < 3 L (10-30) ug/ml Urine Barbiturates (Neg) Ur Phencyclidine (PCP) (Neg) U Amphetamin/Meth Scrn (Neg) MDMA (Ecstasy) Screen (Neg) U Benzodiazepines Scrn (Neg) Ur Cocaine Metabolite (Neg) U Marijuana (THC) Screen (Neg) Ethyl Alcohol mg/dL (<10.0) mg/dl SARS-CoV-2, RNA, NAAT (NEGATIVE) Blood Type Antibody Screen 01/21/23 01/21/23 01/21/23 Range/Units 12:21 12:55 12:55 WBC (4.8-10.8) K/ul RBC (4.70-6.10) M/uL Hgb (14.0-18.0) g/dl Hct (42.0-52.0) % MCV (80.0-100.0) fL MCH (25.0-34.0) pg MCHC (32.0-36.0) g/dL RDW Std Deviation (36.4-46.3) fL RDW Coeff of Elliot (11.5-14.5) % Plt Count (130-400) K/uL MPV (9.4-12.4) fL Immature Gran % (Auto) % Neut % (Auto) % Lymph % (Auto) % Barber % (Auto) % Eos % (Auto) % Baso % (Auto) % Neut # (Auto) (1.40-6.50) K/uL Lymph # (Auto) (1.2-3.4) K/uL Barber # (Auto) (0.11-0.59) K/uL Eos # (Auto) (0-0.50) K/uL Baso # (Auto) (0-0.2) K/uL Immature Gran # (Auto) (0.01-0.20) K/uL PT (9.0-12.0) Seconds INR (0.9-1.1) APTT (21.0-31.0) Seconds PTT Ratio VBG pH (7.36-7.41) VBG pCO2 (38-50) mmHg VBG pO2 mmHg VBG HCO3 mmol/L VBG O2 Saturation % VBG Base Excess mEq/L Sodium 135 L (136-145) mmol/L Potassium 4.3 (3.5-5.1) mmol/L Chloride 103 (98-107) mmol/L Carbon Dioxide 21 (21-32) mmol/L Anion Gap 11 (3-11) BUN 36 H (6-23) mg/dl Creatinine 1.92 H (0.6-1.4) mg/dl Est Cr Clr Drug Dosing 29.7 ml/min Est GFR ( Amer) 37.3 ml/min Est GFR (Non-Af Amer) 32.2 ml/min BUN/Creatinine Ratio 18.8 (10-20) Glucose 103 H (70-99(Fasting)) mg/dl POC Glucose 106 H (70-99) mg/dl Calcium 8.8 (8.6-10.3) mg/dl Magnesium 1.4 L (1.7-2.4) mg/dl Total Bilirubin 0.7 (0.2-1.0) mg/dl Direct Bilirubin 0.2 (0-0.2) mg/dl AST 17 (13-39) U/L ALT 10 (7-52) U/L Alkaline Phosphatase 98 (34-104) U/L Ammonia (18-72) umol/L Total Creatine Kinase (30-223) U/L Troponin I High Sens (0-20) pg/ml Total Protein 6.2 (6.0-8.3) gm/dl Albumin 3.1 L (3.4-5.0) gm/dl Lipase (11-82) U/L Urine Color Urine Appearance (Clear) Urine pH (4.5-7.5) Ur Specific [place] (1.000-1.030) Urine Protein (Negative) Urine Glucose (UA) (Negative) Urine Ketones (Negative) Urine Blood (Negative) Urine Nitrite (Negative) Urine Bilirubin (Negative) Urine Urobilinogen (Negative) Ur Leukocyte Esterase (Negative) Salicylates (3.0-30) mg/dl Urine Opiates Screen (Neg) Ur Methadone, Qual (Neg) Acetaminophen (10-30) ug/ml Urine Barbiturates (Neg) Ur Phencyclidine (PCP) (Neg) U Amphetamin/Meth Scrn (Neg) MDMA (Ecstasy) Screen (Neg) U Benzodiazepines Scrn (Neg) Ur Cocaine Metabolite (Neg) U Marijuana (THC) Screen (Neg) Ethyl Alcohol mg/dL (<10.0) mg/dl SARS-CoV-2, RNA, NAAT (NEGATIVE) Blood Type O Positive Antibody Screen NEGATIVE 01/21/23 01/21/23 01/21/23 Range/Units 12:55 12:55 12:55 WBC (4.8-10.8) K/ul RBC (4.70-6.10) M/uL Hgb (14.0-18.0) g/dl Hct (42.0-52.0) % MCV (80.0-100.0) fL MCH (25.0-34.0) pg MCHC (32.0-36.0) g/dL RDW Std Deviation (36.4-46.3) fL RDW Coeff of Elliot (11.5-14.5) % Plt Count (130-400) K/uL MPV (9.4-12.4) fL Immature Gran % (Auto) % Neut % (Auto) % Lymph % (Auto) % Barber % (Auto) % Eos % (Auto) % Baso % (Auto) % Neut # (Auto) (1.40-6.50) K/uL Lymph # (Auto) (1.2-3.4) K/uL Barber # (Auto) (0.11-0.59) K/uL Eos # (Auto) (0-0.50) K/uL Baso # (Auto) (0-0.2) K/uL Immature Gran # (Auto) (0.01-0.20) K/uL PT (9.0-12.0) Seconds INR (0.9-1.1) APTT (21.0-31.0) Seconds PTT Ratio VBG pH 7.38 (7.36-7.41) VBG pCO2 35 L (38-50) mmHg VBG pO2 23 mmHg VBG HCO3 21 mmol/L VBG O2 Saturation < 60.0 % VBG Base Excess -3.9 mEq/L Sodium (136-145) mmol/L Potassium (3.5-5.1) mmol/L Chloride (98-107) mmol/L Carbon Dioxide (21-32) mmol/L Anion Gap (3-11) BUN (6-23) mg/dl Creatinine (0.6-1.4) mg/dl Est Cr Clr Drug Dosing ml/min Est GFR ( Amer) ml/min Est GFR (Non-Af Amer) ml/min BUN/Creatinine Ratio (10-20) Glucose (70-99(Fasting)) mg/dl POC Glucose (70-99) mg/dl Calcium (8.6-10.3) mg/dl Magnesium (1.7-2.4) mg/dl Total Bilirubin (0.2-1.0) mg/dl Direct Bilirubin (0-0.2) mg/dl AST (13-39) U/L ALT (7-52) U/L Alkaline Phosphatase (34-104) U/L Ammonia 27.0 (18-72) umol/L Total Creatine Kinase (30-223) U/L Troponin I High Sens (0-20) pg/ml Total Protein (6.0-8.3) gm/dl Albumin (3.4-5.0) gm/dl Lipase (11-82) U/L Urine Color Urine Appearance (Clear) Urine pH (4.5-7.5) Ur Specific [place] (1.000-1.030) Urine Protein (Negative) Urine Glucose (UA) (Negative) Urine Ketones (Negative) Urine Blood (Negative) Urine Nitrite (Negative) Urine Bilirubin (Negative) Urine Urobilinogen (Negative) Ur Leukocyte Esterase (Negative) Salicylates (3.0-30) mg/dl Urine Opiates Screen (Neg) Ur Methadone, Qual (Neg) Acetaminophen (10-30) ug/ml Urine Barbiturates (Neg) Ur Phencyclidine (PCP) (Neg) U Amphetamin/Meth Scrn (Neg) MDMA (Ecstasy) Screen (Neg) U Benzodiazepines Scrn (Neg) Ur Cocaine Metabolite (Neg) U Marijuana (THC) Screen (Neg) Ethyl Alcohol mg/dL < 10.0 (<10.0) mg/dl SARS-CoV-2, RNA, NAAT (NEGATIVE) Blood Type Antibody Screen 01/21/23 01/21/23 01/21/23 Range/Units 12:55 13:30 13:30 WBC (4.8-10.8) K/ul RBC (4.70-6.10) M/uL Hgb (14.0-18.0) g/dl Hct (42.0-52.0) % MCV (80.0-100.0) fL MCH (25.0-34.0) pg MCHC (32.0-36.0) g/dL RDW Std Deviation (36.4-46.3) fL RDW Coeff of Elliot (11.5-14.5) % Plt Count (130-400) K/uL MPV (9.4-12.4) fL Immature Gran % (Auto) % Neut % (Auto) % Lymph % (Auto) % Barber % (Auto) % Eos % (Auto) % Baso % (Auto) % Neut # (Auto) (1.40-6.50) K/uL Lymph # (Auto) (1.2-3.4) K/uL Barber # (Auto) (0.11-0.59) K/uL Eos # (Auto) (0-0.50) K/uL Baso # (Auto) (0-0.2) K/uL Immature Gran # (Auto) (0.01-0.20) K/uL PT (9.0-12.0) Seconds INR (0.9-1.1) APTT (21.0-31.0) Seconds PTT Ratio VBG pH (7.36-7.41) VBG pCO2 (38-50) mmHg VBG pO2 mmHg VBG HCO3 mmol/L VBG O2 Saturation % VBG Base Excess mEq/L Sodium (136-145) mmol/L Potassium (3.5-5.1) mmol/L Chloride (98-107) mmol/L Carbon Dioxide (21-32) mmol/L Anion Gap (3-11) BUN (6-23) mg/dl Creatinine (0.6-1.4) mg/dl Est Cr Clr Drug Dosing ml/min Est GFR ( Amer) ml/min Est GFR (Non-Af Amer) ml/min BUN/Creatinine Ratio (10-20) Glucose (70-99(Fasting)) mg/dl POC Glucose (70-99) mg/dl Calcium (8.6-10.3) mg/dl Magnesium (1.7-2.4) mg/dl Total Bilirubin (0.2-1.0) mg/dl Direct Bilirubin (0-0.2) mg/dl AST (13-39) U/L ALT (7-52) U/L Alkaline Phosphatase (34-104) U/L Ammonia (18-72) umol/L Total Creatine Kinase 18 L (30-223) U/L Troponin I High Sens 12.0 (0-20) pg/ml Total Protein (6.0-8.3) gm/dl Albumin (3.4-5.0) gm/dl Lipase 99 H (11-82) U/L Urine Color Yellow Urine Appearance Clear (Clear) Urine pH 5.0 (4.5-7.5) Ur Specific [place] 1.015 (1.000-1.030) Urine Protein Negative (Negative) Urine Glucose (UA) Negative (Negative) Urine Ketones Trace H (Negative) Urine Blood Negative (Negative) Urine Nitrite Negative (Negative) Urine Bilirubin Negative (Negative) Urine Urobilinogen Negative (Negative) Ur Leukocyte Esterase Negative (Negative) Salicylates (3.0-30) mg/dl Urine Opiates Screen Pos H (Neg) Ur Methadone, Qual Neg (Neg) Acetaminophen (10-30) ug/ml Urine Barbiturates Neg (Neg) Ur Phencyclidine (PCP) Neg (Neg) U Amphetamin/Meth Scrn Neg (Neg) MDMA (Ecstasy) Screen Pos H (Neg) U Benzodiazepines Scrn Neg (Neg) Ur Cocaine Metabolite Neg (Neg) U Marijuana (THC) Screen Neg (Neg) Ethyl Alcohol mg/dL (<10.0) mg/dl SARS-CoV-2, RNA, NAAT (NEGATIVE) Blood Type Antibody Screen 01/21/23 Range/Units 15:00 WBC (4.8-10.8) K/ul RBC (4.70-6.10) M/uL Hgb (14.0-18.0) g/dl Hct (42.0-52.0) % MCV (80.0-100.0) fL MCH (25.0-34.0) pg MCHC (32.0-36.0) g/dL RDW Std Deviation (36.4-46.3) fL RDW Coeff of Elliot (11.5-14.5) % Plt Count (130-400) K/uL MPV (9.4-12.4) fL Immature Gran % (Auto) % Neut % (Auto) % Lymph % (Auto) % Barber % (Auto) % Eos % (Auto) % Baso % (Auto) % Neut # (Auto) (1.40-6.50) K/uL Lymph # (Auto) (1.2-3.4) K/uL Barber # (Auto) (0.11-0.59) K/uL Eos # (Auto) (0-0.50) K/uL Baso # (Auto) (0-0.2) K/uL Immature Gran # (Auto) (0.01-0.20) K/uL PT (9.0-12.0) Seconds INR (0.9-1.1) APTT (21.0-31.0) Seconds PTT Ratio VBG pH (7.36-7.41) VBG pCO2 (38-50) mmHg VBG pO2 mmHg VBG HCO3 mmol/L VBG O2 Saturation % VBG Base Excess mEq/L Sodium (136-145) mmol/L Potassium (3.5-5.1) mmol/L Chloride (98-107) mmol/L Carbon Dioxide (21-32) mmol/L Anion Gap (3-11) BUN (6-23) mg/dl Creatinine (0.6-1.4) mg/dl Est Cr Clr Drug Dosing ml/min Est GFR ( Amer) ml/min Est GFR (Non-Af Amer) ml/min BUN/Creatinine Ratio (10-20) Glucose (70-99(Fasting)) mg/dl POC Glucose (70-99) mg/dl Calcium (8.6-10.3) mg/dl Magnesium (1.7-2.4) mg/dl Total Bilirubin (0.2-1.0) mg/dl Direct Bilirubin (0-0.2) mg/dl AST (13-39) U/L ALT (7-52) U/L Alkaline Phosphatase (34-104) U/L Ammonia (18-72) umol/L Total Creatine Kinase (30-223) U/L Troponin I High Sens (0-20) pg/ml Total Protein (6.0-8.3) gm/dl Albumin (3.4-5.0) gm/dl Lipase (11-82) U/L Urine Color Urine Appearance (Clear) Urine pH (4.5-7.5) Ur Specific [place] (1.000-1.030) Urine Protein (Negative) Urine Glucose (UA) (Negative) Urine Ketones (Negative) Urine Blood (Negative) Urine Nitrite (Negative) Urine Bilirubin (Negative) Urine Urobilinogen (Negative) Ur Leukocyte Esterase (Negative) Salicylates (3.0-30) mg/dl Urine Opiates Screen (Neg) Ur Methadone, Qual (Neg) Acetaminophen (10-30) ug/ml Urine Barbiturates (Neg) Ur Phencyclidine (PCP) (Neg) U Amphetamin/Meth Scrn (Neg) MDMA (Ecstasy) Screen (Neg) U Benzodiazepines Scrn (Neg) Ur Cocaine Metabolite (Neg) U Marijuana (THC) Screen (Neg) Ethyl Alcohol mg/dL (<10.0) mg/dl SARS-CoV-2, RNA, NAAT NEGATIVE (NEGATIVE) Blood Type Antibody Screen Imaging Data Attestation: I personally reviewed and interpreted this imaging study as follows: My Impression: CT head: No [facility] Radiologist's Impression: Cervical Spine CT 01/21/23 12:11 CT OF THE CERVICAL SPINE WITHOUT CONTRAST CLINICAL HISTORY: Fall. COMPARISON STUDY: Cervical spine CT March 26, 2021. TECHNIQUE: Helical axial images of the cervical spine were obtained without IV contrast. Sagittal and coronal reconstructions were viewed. Automated exposure control was utilized for the study. A dose lowering technique was utilized adhering to the principles of ALARA. FINDINGS: Extensive degenerative changes at the C1-C2 articulation are again noted. There are stable postoperative findings consistent with C3-T1 posterior decompression and fusion with pedicle screws and rods. The hardware is intact. There is subtle sclerosis of the long the superior plate of T1 which is new since CT of March 26, 2021. No cervical spine fractures are identified. Alignment is unchanged. Multilevel disc space narrowing is unchanged. There is multilevel facet arthrosis. IMPRESSION: 1. No acute cervical spine fracture or subluxation. 2. Subtle sclerosis along the superior endplate of T1. This is suggestive of a subacute to chronic compression fracture which is new since CT of March 26, 2021. 3. Stable postoperative findings within the cervicothoracic spine. ACT 112: Negative or not required by law. Electronically signed by: Maximiliano Orozco M.D. 01/21/2023 2:[address] 01/21/23 12:[address] DOSE: 1012.46 mGy.cm HISTORY: Fall. Altered mental status. TECHNIQUE: Multiaxial CT images of the head were performed without the use of intravenous contrast. Automated exposure control was utilized for this study. A dose lowering technique was utilized adhering to the principles of ALARA. Comparison: Head CT 11/03/2022. Findings: The paranasal sinuses and mastoid air cells are clear. The calvarium a nd skull base are intact. There is no mass, hematoma, midline shift, acute infarct. White matter hypodensity is nonspecific but suggestive of microvascular ischemic change. The ventricles and sulci demonstrate mild age-related involutional changes. Impression: No significant change compared to the prior study. No acute intracranial abnormality. ACT 112: Negative or not required by law. Electronically signed by: Jose Barriga M.D. 01/21/2023 2:19 PM Chest X-Ray 01/21/23 12:12 XR chest 1V portable HISTORY: Fall. Altered mental status. COMPARISON: Chest 11/03/2022. FINDINGS: No pneumothorax. No pleural effusions. The cardiac silhouette is normal in size. No focal lung consolidations to suggest a pneumonia. No evidence for pulmonary edema. There are surgical clips within the left upper quadrant. Cervical spinal fusion hardware is again noted. There are low lung volumes. Right paratracheal fullness remain stable and is likely due to the normal vascular structures. IMPRESSION: No significant change compared to the prior study. No acute process. ACT 112: Negative or not required by law. Electronically signed by: Jose Barriga M.D. 01/21/2023 1:09 PM Pelvis X-Ray 01/21/23 12:12 SINGLE VIEW PELVIS CLINICAL HISTORY: Fall. FINDINGS: An AP view of the pelvis is correlated with pelvic CT dated 05/30/2022. The skeletal structures are osteopenic. There is no radiographic evidence of acute fracture involving the hips or bony pelvis. Moderate arthritic change and joint space narrowing is seen in the hips. There is mild degenerative sclerosis in the sacroiliac joints and pubic symphysis. Enthesophytes arise from the anterior superior iliac spines. Lumbosacral spondylosis is partially imaged. The overlying soft tissues are within normal limits. Surgical clips project over the pelvis. IMPRESSION: No acute bony abnormality is identified. Electronically signed by: Tony Morocho M.D. 01/21/2023 12:53 PM Abdomen/Pelvis CT 01/21/23 13:18 CT SCAN OF THE ABDOMEN AND PELVIS WITHOUT IV CONTRAST CLINICAL HISTORY: Vomiting. Fall. Change in mental status. Generalized abdominal pain. COMPARISON STUDY: Abdominal CT dated 05/30/2022. TECHNIQUE: CT scan of the abdomen and pelvis is performed from the lung bases to the proximal femora. Images are reviewed in the axial, sagittal, and coronal planes. IV contrast was not administered for this examination as per the referring clinician. Note that the examination was performed in suboptimal fashion without oral and IV contrast. The examination is also compromised by motion artifact. A dose lowering technique was utilized adhering to the principles of ALARA. CT DOSE: 391.31 mGy.cm FINDINGS: Lung bases: The heart is enlarged and without pericardial effusion. The coronary arteries and aortic valve leaflets are densely calcified. There is mild aneurysmal dilatation of the partially visualized ascending thoracic aorta. This measures up to 4.0 cm. There are trace pleural effusions with dependent atelectasis. No airspace consolidation is seen typical for pneumonia. There is no basilar pneumothorax. Esophageal varices are noted. Liver: The unenhanced liver is cirrhotic in morphology and heterogeneous in attenuation. There is hypertrophy of the left lobe and nodularity of the hepatic surface contour. There is no intrahepatic biliary ductal dilatation. Gallbladder: Unremarkable. Spleen: The spleen is enlarged measuring 15.5 cm in length. Pancreas: The pancreas is moderately atrophic and markedly heterogeneous. Parenchymal calcifications indicate chronic pancreatitis. The pancreatic tail appears expanded, with a multiloculated fluid collection suggested on image #66. This measures approximately 3 x 1.5 cm. When compared to the 2021 examination is likely represents a pseudocyst. Adrenal glands: Unremarkable. Kidneys: The unenhanced kidneys demonstrate mild cortical atrophy and are without hydronephrosis. There are no renal calculi identified. There is no evidence of contour deforming renal mass lesion. Abdominal vasculature: There is advanced atherosclerotic calcification and mild ectasia of the abdominal aorta. Bowel: Surgical clips are noted along the greater curvature of the stomach. The gastric wall appears diffusely thickened. There is moderate colonic fecal retention. No bowel obstruction is seen. Wall thickening of the right colon is nonspecific and suggests portal colopathy. There are scattered colonic diverticula without CT evidence of acute diverticulitis. The appendix is bone was visualized. Peritoneum: There is a moderate to large volume of abdominopelvic ascites. No intraperitoneal free air is seen. There is a large simple appearing fluid collection identified along the greater curvature of the stomach. This measures approximately 8.5 x 7 x 10 cm seen on image #149. This causes mass effect on the stomach. Lymphadenopathy: None. Pelvic viscera: The the prostate gland is surgically absent. The bladder wall is thickened/trabeculated indicating chronic outlet obstruction. Surgical clips are noted in the pelvis. Skeletal structures: The skeletal structures are heterogeneously osteopenic. There is moderate to advanced lumbosacral spondylosis. Postlaminectomy change is seen throughout the lumbar spine. No lytic or blastic lesions are seen. There is chronic posttraumatic deformity of the sacrum. IMPRESSION: 1. Significantly suboptimal examination without oral and IV contrast. There is also motion artifact. 2. The liver is cirrhotic in morphology and heterogeneous attenuation. 3. Splenomegaly, a moderate to large volume of abdominopelvic ascites, and esophageal varices indicate portal hypertension. 4. There is evidence of chronic pancreatitis. Correlate with serum amylase/lipase levels. 5. The pancreatic tail appears expanded, and small loculated fluid collections in this region likely represent pseudocysts when compared to the 05/30/2022 examination. 6. There is a large simple appearing fluid collection along the greater curvature of the stomach. This causes mass effect on the stomach, is new from 05/30/2022, and also likely represents a pseudocyst. 7. The gastric wall appears thickened and there are surgical clips along the greater curvature. These were also present on 05/30/2022. Correlate clinically for evidence of gastritis. This could be further assessed with endoscopy if clinically warranted. 8. Cardiomegaly and trace pleural effusions. 9. Wall thickening of the right colon is nonspecific and likely represents portal colopathy. Correlate clinically for evidence of a nonspecific infectious/inflammatory colitis. 10. Additional findings as above. ACT 112: Negative or not required by law. Electronically signed by: Tony Morocho M.D. 01/21/2023 2:39 PM ECG Data Attestation: I personally reviewed and interpreted this ECG as follows: Indication: + altered mental status Rate (beats per minute): 78 Rhythm: + normal sinus ECG Intervals/blocks: + Normal QRS, + Normal NM and + Normal QT-c ECG ST segments: + Normal ST segments MDM Narrative 1207: The patient was evaluated in room C11. A complete history and physical exam was performed Cardiac monitoring: An order was placed for continuous cardiac monitoring. The monitor shows a rate of 80 with sinus rhythm interpreted by ms 1530: Vital signs stable. Labs show white blood cell count of 4.75 hemoglobin 9.8 coagulation studies within normal limits VBG shows a venous pH of 7.38 with a venous PCO2 of 35. Electrolytes show a creatinine of 0.92 up from patient's baseline of around 0.8. Magnesium was 1.4. Magnesium repletion started in the emergency department. Ammonia level within normal limits. CK within normal limits. Urinalysis negative. Drug screen positive for opiates and MDMA. COVID-negative. Imaging shows no traumatic injury however CT of the abdomen pelvis does show ascites. Patient has no pain on palpation of the abdomen no fevers no concern for SBP. There also cysts and pseudocyst on CT exam. Patient will be admitted to the [facility] team for his EMILIO IV fluids were given to the patient in the emergency department. Patient also be admitted for his hypomagnesemia. Discussed the case with who will evaluate the patient for admission. Impression & Plan Hypomagnesemia, EMILIO (acute kidney injury) Discharge Plan Visit Data Chief Complaint: Illness ED Provider: Vince Joy Discharge Problem: Hypomagnesemia, EMILIO (acute kidney injury) Patient Disposition: Admitted As Inpatient Discharge Instructions Interventions: ED Discharge Assessment Last Done: 01/21/23 17:21
--- NOTE | 2023-01-21 12:54 | XRay Report ---
SINGLE VIEW PELVIS CLINICAL HISTORY: Fall. FINDINGS: An AP view of the pelvis is correlated with pelvic CT dated 05/30/2022. The skeletal structu res are osteopenic. There is no radiographic evidence of acute fracture involving the hips or bony pe lvis. Moderate arthritic change and joint space narrowing is seen in the hips. There is mild degenera tive sclerosis in the sacroiliac joints and pubic symphysis. Enthesophytes arise from the anterior sanderson perior iliac spines. Lumbosacral spondylosis is partially imaged. The overlying soft tissues are with in normal limits. Surgical clips project over the pelvis. IMPRESSION: No acute bony abnormality is identified. Electronically signed by: Tony Morocho M.D. 01/21/2023 12:53 PM
[2023-01-21 12:56] LABS: INR 1.2 (0.9-1.1); Partial Thromboplastin Ratio 1.3; Partial Thromboplastin Time 35.6 Seconds (21.0-31.0); Prothrombin Time 12.6 Seconds (9.0-12.0)
[2023-01-21 13:07] LABS: Albumin Level 3.1 gm/dl (3.4-5.0); Bilirubin Direct 0.2 mg/dl (0-0.2); Bilirubin,Total 0.7 mg/dl (0.2-1.0); Calcium 8.8 mg/dl (8.6-10.3); Magnesium 1.4 mg/dl (1.7-2.4); Potassium 4.3 mmol/L (3.5-5.1)
--- NOTE | 2023-01-21 13:12 | XRay Report ---
XR chest 1V portable HISTORY: Fall. Altered mental status. COMPARISON: Chest 11/03/2022. FINDINGS: No pneumothorax. No pleural effusions. The cardiac silhouette is normal in size. No focal l salma consolidations to suggest a pneumonia. No evidence for pulmonary edema. There are surgical clips within the left upper quadrant. Cervical spinal fusion hardware is again noted. There are low lung vo lumes. Right paratracheal fullness remain stable and is likely due to the normal vascular structures. IMPRESSION: No significant change compared to the prior study. No acute process. ACT 112: Negative or not required by law. Electronically signed by: Jose Barriga M.D. 01/21/2023 1:09 PM
[2023-01-21 13:13] LABS: Acetaminophen < 3 ug/ml (10-30); Salicylate < 3.0 mg/dl (3.0-30)
[2023-01-21 13:13] LABS: BUN Creatinine Ratio 18.8 (10-20); Base Excess VBG -3.9 mEq/L; Creatinine Clr Calc Pharmacy 29.7 ml/min; Est GFR (African American) 37.3 ml/min; Est GFR (Non-African American) 32.2 ml/min; HCO3 VBG 21 mmol/L; Oxygen Saturation VBG < 60.0 %; PCO2 VBG 35 mmHg (38-50); PO2 VBG 23 mmHg; Total Protein 6.2 gm/dl (6.0-8.3); pH VBG 7.38 (7.36-7.41)
[2023-01-21] MEDS ORDERED: SODIUM CHLORIDE 0.9% 1000ML 500 ML IV ONE (13:19)
[2023-01-21 13:43] LABS: Appearance Urine Clear (Clear); Bilirubin Urine Negative (Negative); Blood Urine Negative (Negative); Color Urine Yellow; Glucose Urine UA Negative (Negative); Ketones Urine Trace (Negative); Leukocyte Esterase Urine Negative (Negative); Nitrite Urine Negative (Negative); Protein Urine Negative (Negative); Specific Gravity Urine 1.015 (1.000-1.030); Urobilinogen Urine Negative (Negative)
[2023-01-21] MEDS: SODIUM CHLORIDE 0.9% 500 ML IV SCH ×2 (14:11→17:54)
--- NOTE | 2023-01-21 14:21 | CT Scan Report ---
HEAD CT NONCONTRAST CT DOSE: 1012.46 mGy.cm HISTORY: Fall. Altered mental status. TECHNIQUE: Multiaxial CT images of the head were performed without the use of intravenous contrast. A utomated exposure control was utilized for this study. A dose lowering technique was utilized adheri ng to the principles of ALARA. Comparison: Head CT 11/03/2022. Findings: The paranasal sinuses and mastoid air cells are clear. The calvarium and skull base are int act. There is no mass, hematoma, midline shift, acute infarct. White matter hypodensity is nonspecifi c but suggestive of microvascular ischemic change. The ventricles and sulci demonstrate mild age-rela tone involutional changes. Impression: No significant change compared to the prior study. No acute intracranial abnormality. ACT 112: Negative or not required by law. Electronically signed by: Jose Barriga M.D. 01/21/2023 2:19 PM
[2023-01-21 14:30] LABS: Amphetamines+Metham, Urine Neg (Neg); Barbiturates, Urine Neg (Neg); Benzodiazepine, Urine Neg (Neg); Cocaine, Urine Neg (Neg); MDMA (Ecstacy), Urine Pos (Neg); Methadone, Urine Neg (Neg); Opiate, Urine Pos (Neg); Phencyclidine, Urine Neg (Neg)
--- NOTE | 2023-01-21 14:41 | CT Scan Report ---
CT SCAN OF THE ABDOMEN AND PELVIS WITHOUT IV CONTRAST CLINICAL HISTORY: Vomiting. Fall. Change in mental status. Generalized abdominal pain. COMPARISON STUDY: Abdominal CT dated 05/30/2022. TECHNIQUE: CT scan of the abdomen and pelvis is performed from the lung bases to the proximal femora. Images are reviewed in the axial, sagittal, and coronal planes. IV contrast was not administered for this examination as per the referring clinician. Note that the examination was performed in suboptim al fashion without oral and IV contrast. The examination is also compromised by motion artifact. A do se lowering technique was utilized adhering to the principles of ALARA. CT DOSE: 391.31 mGy.cm FINDINGS: Lung bases: The heart is enlarged and without pericardial effusion. The coronary arteries and aortic valve leaflets are densely calcified. There is mild aneurysmal dilatation of the partially visualized ascending thoracic aorta. This measures up to 4.0 cm. There are trace pleural effusions with depende nt atelectasis. No airspace consolidation is seen typical for pneumonia. There is no basilar pneumoth orax. Esophageal varices are noted. Liver: The unenhanced liver is cirrhotic in morphology and heterogeneous in attenuation. There is hyp ertrophy of the left lobe and nodularity of the hepatic surface contour. There is no intrahepatic francisca iary ductal dilatation. Gallbladder: Unremarkable. Spleen: The spleen is enlarged measuring 15.5 cm in length. Pancreas: The pancreas is moderately atrophic and markedly heterogeneous. Parenchymal calcifications indicate chronic pancreatitis. The pancreatic tail appears expanded, with a multiloculated fluid bola ection suggested on image #66. This measures approximately 3 x 1.5 cm. When compared to the 22 examination is likely represents a pseudocyst. Adrenal glands: Unremarkable. Kidneys: The unenhanced kidneys demonstrate mild cortical atrophy and are without hydronephrosis. The re are no renal calculi identified. There is no evidence of contour deforming renal mass lesion. Abdominal vasculature: There is advanced atherosclerotic calcification and mild ectasia of the abdomi nal aorta. Bowel: Surgical clips are noted along the greater curvature of the stomach. The gastric wall appears diffusely thickened. There is moderate colonic fecal retention. No bowel obstruction is seen. Wall th ickening of the right colon is nonspecific and suggests portal colopathy. There are scattered colonic diverticula without CT evidence of acute diverticulitis. The appendix is bone was visualized. Peritoneum: There is a moderate to large volume of abdominopelvic ascites. No intraperitoneal free ai r is seen. There is a large simple appearing fluid collection identified along the greater curvature of the stomach. This measures approximately 8.5 x 7 x 10 cm seen on image #149. This causes mass effe ct on the stomach. Lymphadenopathy: None. Pelvic viscera: The the prostate gland is surgically absent. The bladder wall is thickened/trabeculat ed indicating chronic outlet obstruction. Surgical clips are noted in the pelvis. Skeletal structures: The skeletal structures are heterogeneously osteopenic. There is moderate to adv anced lumbosacral spondylosis. Postlaminectomy change is seen throughout the lumbar spine. No lytic o r blastic lesions are seen. There is chronic posttraumatic deformity of the sacrum. IMPRESSION: 1. Significantly suboptimal examination without oral and IV contrast. There is also motion artifact. 2. The liver is cirrhotic in morphology and heterogeneous attenuation. 3. Splenomegaly, a moderate to large volume of abdominopelvic ascites, and esophageal varices indicat e portal hypertension. 4. There is evidence of chronic pancreatitis. Correlate with serum amylase/lipase levels. 5. The pancreatic tail appears expanded, and small loculated fluid collections in this region likely represent pseudocysts when compared to the 05/30/2022 examination. 6. There is a large simple appearing fluid collection along the greater curvature of the stomach. Thi s causes mass effect on the stomach, is new from 05/30/2022, and also likely represents a pseudocyst. 7. The gastric wall appears thickened and there are surgical clips along the greater curvature. These were also present on 05/30/2022. Correlate clinically for evidence of gastritis. This could be furthe r assessed with endoscopy if clinically warranted. 8. Cardiomegaly and trace pleural effusions. 9. Wall thickening of the right colon is nonspecific and likely represents portal colopathy. Correla te clinically for evidence of a nonspecific infectious/inflammatory colitis. 10. Additional findings as above. ACT 112: Negative or not required by law. Electronically signed by: Tony Morocho M.D. 01/21/2023 2:39 PM
[2023-01-21] MEDS ORDERED: MAGNESIUM SULFATE / D5W 1 GM/100 ML BAG IV STA (14:50)
--- NOTE | 2023-01-21 14:50 | CT Scan Report ---
CT OF THE CERVICAL SPINE WITHOUT CONTRAST CLINICAL HISTORY: Fall. COMPARISON STUDY: Cervical spine CT March 26, 2021. TECHNIQUE: Helical axial images of the cervical spine were obtained without IV contrast. Sagittal a nd coronal reconstructions were viewed. Automated exposure control was utilized for the study. A do se lowering technique was utilized adhering to the principles of ALARA. FINDINGS: Extensive degenerative changes at the C1-C2 articulation are again noted. There are stable postoperative findings consistent with C3-T1 posterior decompression and fusion with pedicle screws a nd rods. The hardware is intact. There is subtle sclerosis of the long the superior plate of T1 which is new since CT of March 26, 2021. No cervical spine fractures are identified. Alignment is unchanged . Multilevel disc space narrowing is unchanged. There is multilevel facet arthrosis. IMPRESSION: 1. No acute cervical spine fracture or subluxation. 2. Subtle sclerosis along the superior endplate of T1. This is suggestive of a subacute to chronic co mpression fracture which is new since CT of March 26, 2021. 3. Stable postoperative findings within the cervicothoracic spine. ACT 112: Negative or not required by law. Electronically signed by: Maximiliano Orozco M.D. 01/21/2023 2:49 PM
--- NOTE | 2023-01-21 15:20 | History & Physical Report ---
Date of Service January 21, 2023 Assessment & Plan (1) Lethargy: Plan: Lethargy No urinary symptoms, no evidence of obvious infection VBG 7.3 / Ammonia is normal Patient does have opiate screen positive in urine, is [facility]. No increased dosage per Urine is cross positive for MDMA, suspect from bupropion TSH pending Hemodynamically stable on admission Is somewhat somnolent, but arouses easily and answers questions appropriately when awake History of encephalopathy in the setting of GI bleeding and intermittent confusion with hospitalization in the past. Has received aggressive thiamine protocol for alcohol cirrhosis, no alcohol use since October per patient and alcohol is negative on admission ? Poor p.o. intake with EMILIO and increasing weakness due to mass effect on the stomach from pancreatic pseudocyst. High risk candidate for either percutaneous or EUS guided drainage. 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 twice daily Continue PPI p.o. twice daily No acute bleeding on admission Trend CMP daily Type II DM Hold home antiglycemic's Weight-based basal bolus Last A1c well controlled 5.1% Goal BG 280466 Depression/anxiety Continue venlafaxine 150 mg every morning, bupropion 150 mg every morning Urine screen MDMA likely false positive from bupropion Hypertension Continue amlodipine, normotensive on admission Chronic pancreatitis, multiple pseudocysts Lipase mildly elevated IV FM, diet as tolerated we will start clears Clinically without upper quadrant pain Hypothyroidism Continue Synthroid, patient has only been on medication for a week and a half TSH unlikely to be changed and will defer repeat Anxiety/depression Patient's stopped his bupropion and dose reduced venlafaxine out of concern for a contributing to his mentation. Is now 5 days out from last bupropion dose, took venlafaxine dose reduced to 150 mg last yesterday Continue venlafaxine. Other than some confusion symptoms are not consistent with bupropion withdrawal, will continue to defer DVT prophylaxis: SCDs, defer pharmacal prophylaxis in the setting history of GI bleeds, cirrhosis with varices Diet: Clears, advance as tolerated Disposition: Medical telemetry CODE STATUS: Full code, discussed with patient and at bedside (2) Hypothyroid: (3) Cirrhosis: (4) Esophageal varices: (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: (6) Hypertension: (7) Depression: (8) GERD (gastroesophageal reflux disease): (9) Diabetes mellitus, type 2: (10) Liver cirrhosis, alcoholic: History of Present Illness Primary Care Provider: IRISH Viveros Gary is an 82-year-old male with a past medical history of prior alcohol dependence, depression, GERD, alcoholic cirrhosis, anemia with histories of varices who presented to the ER after increasing lethargy since a fall 4 days ago. Patient denies any recent alcohol intake. Gary is seen in the ER. 'Anatoliy I just feel not great, sick. I'm tired a lot and not very hungry. Did not take morning medications. +Nausea, no vomiting. Some loose bowels movements, but brown and no blood/melena. Saw Dr. Nava for GI in the past, no recurrence since then. Appetite has been diminished for 1-2 weeks. Has pain across the low abdomen, was worse last week but feels better today compared to early in the week. Pain is lower int he abdomen and bilateral, no uper quadrant pain. Feels more like an uncomfortable pressure. No bleeding. Takes hydrocodone for general pain and post surgical neck pain. 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 No history of strokes. Prescribed by [facility]. No longer takes buproprion/wellbutrin. Takes vnlafaxine, now takes venlafaxine 150mg total. Has not taken this week at all due to some confusion and fatigue. Takes synthroid, just started 1.5 weeks ago Takes gabapentin 400mg at night Takes amlodipine 5mg AM, DM meds x2 metformin and alogliptin Does not take meclizine Propranolol 20mg BID PPI BID Stopped wellbutrin/buproprion after falling on Wednesday. Slipped Wednesday and fell, did not lose consciousness. Just felt fatigued, denies syncope/room spinning. Medical History: Reviewed Medications: Reviewed Surgical History: Reviewed Family history: Reviewed Allergies: Reviewed Social History: Former etoh none since 10/2022. No tobacco use. No mairjuana use. Code Status: Full Labs independently reviewed. No leukocytosis Hemoglobin 9.8, last 9.6 on 12/14/2022. MCV 86. Platelets 190 INR 1.2 VB.3 on admission Sodium 135, potassium 4.3 Creatinine baseline less than 1, admitting creatinine 1.92 suspect prerenal with poor intake Magnesium 1.4 CK17 High-sensitivity troponin normal Lipase 99 Urine opiates positive, MDMA positive suspect false positive cross-reactive COVID pending CTA/P: Cirrhotic liver. Splenomegaly with large amount of abdominal pelvic ascites, esophageal varices. Evidence of chronic pancreatitis. Pancreatic tail expansion with small loculated fluid collections suspicious for pseudocysts. Large simple appearing fluid collection in the greater curvature of the stomach suspicious for pseudocyst causing mass effect. Gastric wall thickening and surgical clips along the greater curvature suspicious for gastritis. Cardiomegaly with trace effusions. Nonspecific right colonic wall thickening suspicious for portal colopathy Pelvic x-ray: No acute fracture/no acute findings CThead: No acute findings CXR: No acute findings CTC-spine: No acute fracture/subluxation. Chronic compression fracture noted at T1 new compared to 2020. Postsurgical findings are noted. Allergies Allergy/AdvReac Type Severity Reaction Status Date / Time etodolac AdvReac n/v Verified 01/21/23 15:06 meloxicam AdvReac n/v Verified 01/21/23 15:06 Home Medications Medication Instructions Recorded Confirmed Type atorvastatin 80 mg tablet 80 mg PO QAM 06/13/19 01/21/23 History alogliptin 25 mg tablet 25 mg PO QAM 08/02/20 01/21/23 History amlodipine 5 mg tablet 5 mg PO QAM 12/10/20 01/21/23 History diclofenac sodium 1 % topical gel 2 g topical QID PRN Pain 05/13/21 01/21/23 History (Voltaren Arthritis Pain) lidocaine 5 % topical patch 1 patch topical DAILY 05/13/21 01/21/23 History (Lidoderm) ascorbic acid (vitamin C) 250 mg 250 mg PO QAM 08/20/21 01/21/23 History tablet cholecalciferol (vitamin D3) 25 25 mcg PO QAM 08/20/21 01/21/23 History mcg (1,000 unit) capsule bupropion HCl 150 mg tablet,12 hr 150 mg PO QAM 04/27/22 01/21/23 History sustained-release (Wellbutrin SR) levothyroxine 25 mcg tablet 25 mcg PO DAILY #90 tabs 12/30/22 01/21/23 Rx venlafaxine 75 mg capsule,extended 225 mg PO QAM 12/30/22 01/21/23 History release 24 hr ferrous sulfate 325 mg (65 mg 325 mg PO QDD 01/21/23 01/21/23 History iron) tablet,delayed release fluticasone propionate 50 1 spray intranasal QAM 01/21/23 01/21/23 History mcg/actuation nasal spray,suspension gabapentin 400 mg capsule 400 mg PO HS 01/21/23 01/21/23 History magnesium oxide 400 mg (241.3 mg 400 mg PO QAM 01/21/23 01/21/23 History magnesium) tablet meclizine 25 mg tablet 25 mg PO BID PRN Dizziness 01/21/23 01/21/23 History metformin 1,000 mg tablet 1,000 mg PO BIDM 01/21/23 01/21/23 History ondansetron 4 mg disintegrating 4 mg PO Q6H PRN Nausea 01/21/23 01/21/23 History tablet pantoprazole 40 mg tablet,delayed 40 mg PO AMHS 01/21/23 01/21/23 History release propranolol 20 mg tablet 20 mg PO AMHS 01/21/23 01/21/23 History thiamine HCl (vitamin B1) 100 mg 200 mg PO QAM 01/21/23 01/21/23 History tablet Past Med/Surg History Medical History Abdominal ascites Abnormal CXR (chest x-ray) Acute pancreatitis Alcohol dependence Anemia chronic, baseline hgb 10-11 range per chart review Anxiety Bilateral primary osteoarthritis of knee Bilateral tinnitus Carpal tunnel syndrome Cervical spondylosis without myelopathy Chronic gastric ulcer remote hx per records, pt states unaware Depression Diabetes mellitus, type 2 NIDDM Encounter for pre-operative examination Esophageal stricture Esophageal varices Grade 1 small varices in the lower third of the esophagus per 09/30/20 EGD, undergoes routine surveillance EGDs Fatty liver GERD (gastroesophageal reflux disease) controlled Hiatal hernia History of gastric polyp History of prostate cancer s/p prostatectomy (1998), no chemo/no radiation Hypercholesterolemia Hypertension Hypothyroid 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 Left knee DJD Left knee DJD Liver cirrhosis, alcoholic hx small esophageal varices (09/2020) under surveillance, no banding indicated on most recent EGD, follows with [facility], stable Lumbar stenosis Neck pain with history of cervical spinal surgery Pancreatic mass Pancreatitis 2017 Pancreatitis, acute Restless legs syndrome Sensorineural hearing loss (SNHL) of both ears Symptomatic anemia Thrombocytopenia hx cirrhosis, chronic mild thrombocytopenia Surgical History History of biopsy pancreatic mass biopsy on 07/01/2020 - benign History of colonoscopy (06/2018) History of cystoscopy d/t incontinence History of esophagogastroduodenoscopy (EGD) (11/2019) 11/30/19: MAC sedation at [facility] History of laminectomy X3 History of prostatectomy History of right inguinal hernia repair History of tooth extraction Hx of cervical spine surgery (12/2019) C3-C6 laminectomy, C3-T1 PCF Hx of inguinal hernia surgery (09/14/19) Open Right Inguinal Hernia Repair with Mesh: 09/14/19: LMA#5 at [facility] S/P total knee arthroplasty 11/12/20 Dr. Khoa Fink- Right TKA Status post right knee replacement Family History Sister Family history of diabetes mellitus Breast cancer Mother Colorectal cancer Stroke Hypertension Brother Prostate cancer Colorectal cancer Father Myocardial infarction Son Thyroid disease Mother Family history of diabetes mellitus Sister Family history of diabetes mellitus Sister Family history of diabetes mellitus Other Cancer No family history of adverse response to anesthesia No family history of allergies No family history of bleeding disorder Denies family history of Ovarian cancer Hearing loss Heart disease Asthma Social History Smoking Status: Never smoker Tobacco Type: Smokeless Tobacco (Dip or Chew) Second Hand Exposure: No; Hx Alcohol Use: Yes Alcohol type: beer Alcohol Intake Frequency: 4 or More x per/Week Alcohol Intake Frequency Comment: at night 4-5 beers a night Hx Substance Use: Yes Prescribed Medications: Opiates Preferred Language: Filipino Communication Ability: Effective Visual Impairment: No Limitations Hearing Ability: Use of Hearing Aid Shearing Shed Worker Required: No Beliefs That Will Affect Care: None marital status: Current Living Situation: Spouse current occupational status: retired Feels Safe at Home: Yes Childhood Exposure to Second-Hand Smoke: No Diet Comment: regular caffeine: No during the past year weight has: remained stable Dental Care, Regularly: No Physical Activity Frequency: Daily Physical Activity Frequency Comment: limited by physical condition Seatbelt Use: always Sunscreen Use: No Assistive Devices: Cane and Walker Review of Systems Review of Systems: All systems reviewed & are unremarkable except as noted in HPI & below Physical Exam Physical Exam: General: Oriented to name, place and year. Not oriented to month. Somnolent, but awakens easily and answers questions appropriately and follows commands HEENT: Atraumatic, normocephalic. Vision and hearing grossly intact, is hard of hearing Pulm: CTAB A&P. -wheezes, -rales, -rhonchi. Symmetrical chest rise. No increased work of breathing. No respiratory distress. Cardiac: RRR, -mrg. Radial pulses intact and symmetrical. Abdominal: Distended with ascites, mild lower quadrant tenderness bilaterally without guarding/rigidity, no rebound. No upper quadrant tenderness. Bowel sounds diminished Extremities: Warm, dry. Right upper arm with chronic weakness and OA of the shoulder limiting motion. 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 Incision soft touch intact in hands and feet Results & Data Results & Data Vital Signs (Past 12 Hours) Vital Signs Temp Pulse Pulse Resp BP BP Pulse Ox 01/21/23 13:30 77 18 137/75 96 01/21/23 12:19 80 98 01/21/23 11:29 77 01/21/23 11:06 36.8 C 77 19 126/67 95 O2 Del Method 01/21/23 13:30 Room Air 01/21/23 12:19 Room Air 01/21/23 11:29 01/21/23 11:06 Room Air PG Care Time/CCT Total # of Minutes Spent Total Time Spent with Patient: Total time spent is greater than 50% in coordination of care (as documented) at patient's floor/unit and/or counseling patient: Coding Level of Care Code 30587 INT INP/OBS CARE 3/75MIN Diagnoses Lethargy R53.83 Hypothyroid E03.9 Cirrhosis K74.60 Esophageal varices I85.00 Intraductal papillary mucinous neoplasm of pancreas D49.0 Hypertension I10 Hypertension type: essential hypertension Depression F32.9 GERD (gastroesophageal reflux disease) K21.9 Diabetes mellitus, type 2 E11.9 Diabetes mellitus shelter insulin use: without computer terminal operator use Chronic kidney disease stage 3 subtype: stage 3a (GFR 45-59) Liver cirrhosis, alcoholic K70.30 Ascites presence: without ascites (6) Hypertension Hypertension type: essential hypertension Qualified Code(s): I10 - Essential (primary) hypertension (9) Diabetes mellitus, type 2 Diabetes mellitus shelter insulin use: without computer terminal operator use Chronic kidney disease stage 3 subtype: stage 3a (GFR 45-59) (10) Liver cirrhosis, alcoholic Ascites presence: without ascites Qualified Code(s): K70.30 - Alcoholic cirrhosis of liver without ascites
[2023-01-21] MEDS ORDERED: MECLIZINE HCL 25 MG TAB PO PRN (17:31)
[2023-01-21] MEDS ORDERED: ONDANSETRON 4 MG OD TAB PO PRN (17:31)
[2023-01-21] MEDS: ACETAMINOPHEN 500 MG TAB PO PRN (18:00)
[2023-01-21] MEDS: PROPRANOLOL HCL 20 MG TAB PO SCH (20:15)
[2023-01-21] MEDS: PANTOprazole 40 MG TAB PO SCH (20:15)
[2023-01-21] MEDS ORDERED: GABAPENTIN 400 MG CAP PO SCH (21:00)
[2023-01-22] MEDS: SODIUM CHLORIDE 0.9% 500 ML IV SCH (00:11)
[2023-01-22] MEDS: SODIUM CHLORIDE 0.9% 1,000 ML IV SCH ×2 (00:36→07:45)
[2023-01-22] MEDS: LEVOTHYROXINE SODIUM 25 MCG TABLET PO SCH (06:01)
[2023-01-22 07:15] LABS: Albumin Level 2.9 gm/dl (3.4-5.0); BUN Creatinine Ratio 17.6 (10-20); Bilirubin,Total 0.8 mg/dl (0.2-1.0); Calcium 8.4 mg/dl (8.6-10.3); Creatinine Clr Calc Pharmacy 37.3 ml/min; Est GFR (Non-African American) 42.3 ml/min; Globulin 2.9 gm/dl (2.5-4.0); Potassium 3.8 mmol/L (3.5-5.1); Total Protein 5.8 gm/dl (6.0-8.3)
[2023-01-22 07:45] LABS: INR 1.2 (0.9-1.1); Prothrombin Time 12.8 Seconds (9.0-12.0)
[2023-01-22] MEDS ORDERED: ACETAMINOPHEN 10MG/ML Custom 1,000 MG in EMPTY BAG 0 ML IV PRN (07:50)
[2023-01-22] MEDS ORDERED: ACETAMINOPHEN 1,000 MG/100 ML VIAL IV PRN (07:55)
--- NOTE | 2023-01-22 07:58 | Hospitalist Progress Note ---
Date of Service January 22, 2023 Assessment & Plan (1) Lethargy: Plan: Lethargy, suspect acute on chronic toxic encephalopathy from medication, hepatic encephalopathy ruled out by normal ammonia Patient does have opiate screen positive in urine, is prescribed [facility]. No increased dosage per may be accumulative effect due to liver disease History of encephalopathy in the setting of GI bleeding and intermittent confusion with hospitalization in the past. Has received aggressive thiamine protocol for alcohol cirrhosis, no alcohol use since October per patient and alcohol is negative on admission patient continues on thiamine supplementation orally acute on chronic anorexia, Poor p.o. intake ? due to mass effect on the stomach from pancreatic pseudocyst. High risk candidate for either percutaneous or EUS guided drainage GI consulted recommend large-volume paracentesis which has been completed currently being cultured and have diagnostic studies performed. Coordination with endoscopic ultrasound drainage of pancreatic pseudocyst as an outpatient on January 26 chronic unclear if stable Alcoholic cirrhosis, alcohol use in remission With history of portal gastropathy and varices varices have been slight in the past given recent endoscopy Hemoglobin stable, i Continue propranolol 20 mg p.o. twice daily Continue PPI p.o. twice daily No acute bleeding on admission Type II DM, chronic, stable but medication needs to be adjusted while npo etc Hold home antiglycemic's Basal bolus insulin is initiated chronic stable Depression/anxiety Continue venlafaxine 150 mg every morning, recently stopped,bupropion Urine screen MDMA likely false positive from bupropion - Patient's stopped his bupropion and dose reduced venlafaxine out of concern for a contributing to his mentation. Is now 5 days out from last bupropion dose, took venlafaxine dose reduced to 150 mg 01/20/23 Hypertension, chronic stable Continue amlodipine, normotensive on admission Chronic pancreatitis, multiple pseudocysts Lipase mildly elevated Hypothyroidism Continue Synthroid, patient has only been on medication for a week and a half TSH unlikely to be changed and will defer repeat DVT prophylaxis: SCDs, defer pharmacal prophylaxis in the setting history of GI bleeds, cirrhosis with varices CODE STATUS: Full code, discussed with patient and at bedside (2) Hypothyroid: (3) Cirrhosis: (4) Esophageal varices: (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: (6) Hypertension: (7) Depression: (8) GERD (gastroesophageal reflux disease): (9) Diabetes mellitus, type 2: (10) Liver cirrhosis, alcoholic: Admission and Anticipated Discharge Date Admission Date: January 21, 2023 Subjective Patient is much more awake and alert after discontinuing some of his medications. He underwent therapeutic paracentesis from his alcoholic cirrhosis today for 4.9 L. He was given replacement albumin at 50 g. Fluid analysis is pending Physical Exam Physical Exam: Patient is awake and conversive can recall the events of today's hospital stay. He has no discomfort after his paracentesis paracentesis site is clean dry and intact He does have some hepatomegaly on exam of his abdomen Results & Data Results & Data Vital Signs (Past 12 Hours) Vital Signs Temp Pulse Pulse Resp BP Pulse Ox O2 Del Method 01/22/23 07:19 98.2 F 78 18 153/82 H 95 Room Air 01/22/23 07:03 80 01/22/23 02:44 97.7 F 77 18 161/84 H 94 Room Air 01/21/23 23:37 68 01/21/23 23:07 98.2 F 66 16 134/72 96 Room Air Laboratory Results Reviewed CBC Reviewed coagulation Reviewed chemistry Reviewed lipase PG Care Time/CCT Total # of Minutes Spent Total Time Spent with Patient: Total time spent is greater than 50% in coordination of care (as documented) at patient's floor/unit and/or counseling patient: Coding Level of Care Code 75891 SUB INP/OBS CARE 3/50MIN Diagnoses Lethargy R53.83 Hypothyroid E03.9 Cirrhosis K74.60 Esophageal varices I85.00 Intraductal papillary mucinous neoplasm of pancreas D49.0 Hypertension I10 Hypertension type: essential hypertension Depression F32.9 GERD (gastroesophageal reflux disease) K21.9 Diabetes mellitus, type 2 E11.9 Chronic kidney disease stage 3 subtype: stage 3a (GFR 45-59) Diabetes mellitus usp insulin use: without usp use Liver cirrhosis, alcoholic K70.30 Ascites presence: without ascites (6) Hypertension Hypertension type: essential hypertension Qualified Code(s): I10 - Essential (primary) hypertension (9) Diabetes mellitus, type 2 Chronic kidney disease stage 3 subtype: stage 3a (GFR 45-59) Diabetes mellitus usp insulin use: without usp use (10) Liver cirrhosis, alcoholic Ascites presence: without ascites Qualified Code(s): K70.30 - Alcoholic cirrhosis of liver without ascites
[2023-01-22] MEDS ORDERED: SODIUM CHLORIDE 0.9% 1000ML 1,000 ML IV SCH (08:00)
[2023-01-22] MEDS: MAGNESIUM OXIDE 400 MG TAB PO SCH (08:28)
[2023-01-22] MEDS: VENLAFAXINE HCL XR 150 MG CAPXR PO SCH (08:28)
[2023-01-22] MEDS: amLODIPine BESYLATE 5 MG TAB PO SCH (08:28)
[2023-01-22] MEDS: PROPRANOLOL HCL 20 MG TAB PO SCH ×2 (08:28→21:25)
[2023-01-22] MEDS: PANTOprazole 40 MG TAB PO SCH ×2 (08:28→21:25)
[2023-01-22] MEDS: ATORVASTATIN 40 MG TAB PO SCH (08:28)
[2023-01-22] MEDS: THIAMINE HCL 100 MG TAB PO SCH (08:28)
[2023-01-22] MEDS: ACETAMINOPHEN 500 MG TAB PO PRN (08:39)
[2023-01-22 09:55] LABS: Albumin Level 2.9 gm/dl (3.4-5.0); BUN Creatinine Ratio 18.5 (10-20); Bilirubin,Total 0.8 mg/dl (0.2-1.0); Calcium 8.2 mg/dl (8.6-10.3); Est GFR (African American) 51.9 ml/min; Est GFR (Non-African American) 44.8 ml/min; Globulin 2.9 gm/dl (2.5-4.0); Potassium 3.6 mmol/L (3.5-5.1); Total Protein 5.8 gm/dl (6.0-8.3)
--- NOTE | 2023-01-22 09:55 | Gastrointestinal Consultation ---
Date of Consultation January 22, 2023 Assessment & Plan (1) Cirrhosis: (2) Abdominal ascites: Plan Discussed with Dr. Nava who advised on plan. - recommend large volume diagnostic paracentesis with culture. Recommended to have outpatient EUS drainage of pancreatic pseudocyst as an outpatient - [facility] was made aware yesterday. - continue supportive care. Supervising Physician Co-Signing Physician Notes Agree with TIMMY Puri as above Continue current therapy and supportive care Will need outpatient EUS with drainage of pancreatic pseudocyst History of Present Illness Reason for Consultation: progressive pancreatic pseudocyst and question of mass anorexia Requesting Physician: Duane Wilkes MD Attending Physician: Solo Darnell MD History of Present Illness Patient is an 82 year old male with a past medical history of prior alcohol dependence, depression, GERD, alcoholic cirrhosis, anemia with histories of varices who presented to the ER after increasing lethargy since a fall he sustained on Wednesday. Patient seems confused this morning when I tried to speak with him. He is alert but he is not oriented and does not answer questions appropriately. History obtained from chart. During inpatient work up he had CT showing moderate/large ascites and pancreatic pseudocysts (see full report below). EGD 11/04/2223 Grade I esophageal varices, small hiatal hernia, erosive gastropathy with bleeding polyps. clip placed. 01/21/23 wbc 4.75, hgb 9.8, hct 30.6, platelets 190, INR 1.2, BUN 36, creatinine 1.92, normal LFTs, ammonia 27, lipase 99. Allergies Allergy/AdvReac Type Severity Reaction Status Date / Time etodolac AdvReac n/v Verified 01/21/23 15:06 meloxicam AdvReac n/v Verified 01/21/23 15:06 Home Medications Medication Instructions Recorded Confirmed Type atorvastatin 80 mg tablet 80 mg PO QAM 06/13/19 01/21/23 History alogliptin 25 mg tablet 25 mg PO QAM 08/02/20 01/21/23 History amlodipine 5 mg tablet 5 mg PO QAM 12/10/20 01/21/23 History diclofenac sodium 1 % topical gel 2 g topical QID PRN Pain 05/13/21 01/21/23 History (Voltaren Arthritis Pain) lidocaine 5 % topical patch 1 patch topical DAILY 05/13/21 01/21/23 History (Lidoderm) ascorbic acid (vitamin C) 250 mg 250 mg PO QAM 08/20/21 01/21/23 History tablet cholecalciferol (vitamin D3) 25 25 mcg PO QAM 08/20/21 01/21/23 History mcg (1,000 unit) capsule bupropion HCl 150 mg tablet,12 hr 150 mg PO QAM 04/27/22 01/21/23 History sustained-release (Wellbutrin SR) levothyroxine 25 mcg tablet 25 mcg PO DAILY #90 tabs 12/30/22 01/21/23 Rx venlafaxine 75 mg capsule,extended 225 mg PO QAM 12/30/22 01/21/23 History release 24 hr ferrous sulfate 325 mg (65 mg 325 mg PO QDD 01/21/23 01/21/23 History iron) tablet,delayed release fluticasone propionate 50 1 spray intranasal QAM 01/21/23 01/21/23 History mcg/actuation nasal spray,suspension gabapentin 400 mg capsule 400 mg PO HS 01/21/23 01/21/23 History magnesium oxide 400 mg (241.3 mg 400 mg PO QAM 01/21/23 01/21/23 History magnesium) tablet meclizine 25 mg tablet 25 mg PO BID PRN Dizziness 01/21/23 01/21/23 History metformin 1,000 mg tablet 1,000 mg PO BIDM 01/21/23 01/21/23 History ondansetron 4 mg disintegrating 4 mg PO Q6H PRN Nausea 01/21/23 01/21/23 History tablet pantoprazole 40 mg tablet,delayed 40 mg PO AMHS 01/21/23 01/21/23 History release propranolol 20 mg tablet 20 mg PO AMHS 01/21/23 01/21/23 History thiamine HCl (vitamin B1) 100 mg 200 mg PO QAM 01/21/23 01/21/23 History tablet Patient History Medical History (Updated 01/22/23 @ 09:58 by Donaldo Carrillo PA-C) Abdominal ascites Abnormal CXR (chest x-ray) Acute pancreatitis Alcohol dependence Anemia chronic, baseline hgb 10-11 range per chart review Anxiety Bilateral primary osteoarthritis of knee Bilateral tinnitus Carpal tunnel syndrome Cervical spondylosis without myelopathy Chronic gastric ulcer remote hx per records, pt states unaware Depression Diabetes mellitus, type 2 NIDDM Encounter for pre-operative examination Esophageal stricture Esophageal varices Grade 1 small varices in the lower third of the esophagus per 09/30/20 EGD, undergoes routine surveillance EGDs Fatty liver GERD (gastroesophageal reflux disease) controlled Hiatal hernia History of gastric polyp History of prostate cancer s/p prostatectomy (1998), no chemo/no radiation Hypercholesterolemia Hypertension Hypothyroid 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 Left knee DJD Left knee DJD Liver cirrhosis, alcoholic hx small esophageal varices (09/2020) under surveillance, no banding indicated on most recent EGD, follows with [facility], stable Lumbar stenosis Neck pain with history of cervical spinal surgery Pancreatic mass Pancreatitis 2016 Pancreatitis, acute Restless legs syndrome Sensorineural hearing loss (SNHL) of both ears Symptomatic anemia Thrombocytopenia hx cirrhosis, chronic mild thrombocytopenia Surgical History History of biopsy pancreatic mass biopsy on 07/01/2020 - benign History of colonoscopy (06/2018) History of cystoscopy d/t incontinence History of esophagogastroduodenoscopy (EGD) (11/2019) 11/30/19: MAC sedation at [facility] History of laminectomy X3 History of prostatectomy History of right inguinal hernia repair History of tooth extraction Hx of cervical spine surgery (12/2019) C3-C6 laminectomy, C3-T1 PCF Hx of inguinal hernia surgery (09/14/19) Open Right Inguinal Hernia Repair with Mesh: 09/14/19: LMA#5 at [facility] S/P total knee arthroplasty 11/12/20 Dr. Khoa Fink- Right TKA Status post right knee replacement Family History Sister Family history of diabetes mellitus Breast cancer Mother Colorectal cancer Stroke Hypertension Brother Prostate cancer Colorectal cancer Father Myocardial infarction Son Thyroid disease Mother Family history of diabetes mellitus Sister Family history of diabetes mellitus Sister Family history of diabetes mellitus Other Cancer No family history of adverse response to anesthesia No family history of allergies No family history of bleeding disorder Denies family history of Ovarian cancer Hearing loss Heart disease Asthma Social History Smoking Status: Never smoker Tobacco Type: Smokeless Tobacco (Dip or Chew) Second Hand Exposure: No; Do You Dip or Chew Tobacco: No; Tobacco Cessation Education Requested by Patient: No Hx Alcohol Use: Yes Alcohol type: beer Alcohol Intake Frequency: 4 or More x per/Week Alcohol Intake Frequency Comment: at night 4-5 beers a night Hx Substance Use: No Preferred Language: Dutch Communication Ability: Effective Visual Impairment: No Limitations Hearing Ability: Use of Hearing Aid 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 Beliefs That Will Affect Care: Jewish Jewish Beliefs: CHEONDOISM marital status: Current Living Situation: Spouse current occupational status: retired Other Information That Helps Us Care for You: No Feels Safe at Home: Yes Safety Concerns: Feels Safe At This Time Childhood Exposure to Second-Hand Smoke: No Diet Comment: regular caffeine: No during the past year weight has: remained stable Dental Care, Regularly: No Physical Activity Frequency: Daily Physical Activity Frequency Comment: limited by physical condition Seatbelt Use: always Sunscreen Use: No Assistive Devices: Glasses and Walker Assistive Devices Comment: bilateral hearing aides at home per his she wants to keep them at home Review of Systems Review of Systems: Unobtainable due to cognitive status Physical Exam Constitutional: WD/WN, vitals as above Respiratory: normal respiratory effort, lungs clear to auscultation Cardiovascular: Rate/Rhythm: regular rate and regular rhythm Gastrointestinal (Abdomen): normal bowel sounds. distended abdomen. ascites. nontender. Skin: no rashes, warm and dry Psychiatric: Orientation: alert Affect: euthymic affect Results & Data Vital Signs (Past 12 Hours) Vital Signs Temp Pulse Pulse Resp BP Pulse Ox O2 Del Method 01/22/23 07:19 98.2 F 78 18 153/82 H 95 Room Air 01/22/23 07:03 80 01/22/23 02:44 97.7 F 77 18 161/84 H 94 Room Air 01/21/23 23:37 68 01/21/23 23:07 98.2 F 66 16 134/72 96 Room Air Diagnostic Findings CT SCAN OF THE ABDOMEN AND PELVIS WITHOUT IV CONTRAST CLINICAL HISTORY: Vomiting. Fall. Change in mental status. Generalized abdominal pain. COMPARISON STUDY: Abdominal CT dated 05/30/2022. TECHNIQUE: CT scan of the abdomen and pelvis is performed from the lung bases to the proximal femora. Images are reviewed in the axial, sagittal, and coronal planes. IV contrast was not administered for this examination as per the referring clinician. Note that the examination was performed in suboptimal fashion without oral and IV contrast. The examination is also compromised by motion artifact. A dose lowering technique was utilized adhering to the principles of ALARA. CT DOSE: 391.31 mGy.cm FINDINGS: Lung bases: The heart is enlarged and without pericardial effusion. The coronary arteries and aortic valve leaflets are densely calcified. There is mild aneurysmal dilatation of the partially visualized ascending thoracic aorta. This measures up to 4.0 cm. There are trace pleural effusions with dependent atelectasis. No airspace consolidation is seen typical for pneumonia. There is no basilar pneumothorax. Esophageal varices are noted. Liver: The unenhanced liver is cirrhotic in morphology and heterogeneous in attenuation. There is hypertrophy of the left lobe and nodularity of the hepatic surface contour. There is no intrahepatic biliary ductal dilatation. Gallbladder: Unremarkable. Spleen: The spleen is enlarged measuring 15.5 cm in length. Pancreas: The pancreas is moderately atrophic and markedly heterogeneous. Parenchymal calcifications indicate chronic pancreatitis. The pancreatic tail appears expanded, with a multiloculated fluid collection suggested on image #66. This measures approximately 3 x 1.5 cm. When compared to the 2021 examination is likely represents a pseudocyst. Adrenal glands: Unremarkable. Kidneys: The unenhanced kidneys demonstrate mild cortical atrophy and are without hydronephrosis. There are no renal calculi identified. There is no evidence of contour deforming renal mass lesion. Abdominal vasculature: There is advanced atherosclerotic calcification and mild ectasia of the abdominal aorta. Bowel: Surgical clips are noted along the greater curvature of the stomach. The gastric wall appears diffusely thickened. There is moderate colonic fecal retention. No bowel obstruction is seen. Wall thickening of the right colon is nonspecific and suggests portal colopathy. There are scattered colonic diverticula without CT evidence of acute diverticulitis. The appendix is bone was visualized. Peritoneum: There is a moderate to large volume of abdominopelvic ascites. No intraperitoneal free air is seen. There is a large simple appearing fluid collection identified along the greater curvature of the stomach. This measures approximately 8.5 x 7 x 10 cm seen on image #149. This causes mass effect on the stomach. Lymphadenopathy: None. Pelvic viscera: The the prostate gland is surgically absent. The bladder wall is thickened/trabeculated indicating chronic outlet obstruction. Surgical clips are noted in the pelvis. Skeletal structures: The skeletal structures are heterogeneously osteopenic. There is moderate to advanced lumbosacral spondylosis. Postlaminectomy change is seen throughout the lumbar spine. No lytic or blastic lesions are seen. There is chronic posttraumatic deformity of the sacrum. IMPRESSION: 1. Significantly suboptimal examination without oral and IV contrast. There is also motion artifact. 2. The liver is cirrhotic in morphology and heterogeneous attenuation. 3. Splenomegaly, a moderate to large volume of abdominopelvic ascites, and esophageal varices indicate portal hypertension. 4. There is evidence of chronic pancreatitis. Correlate with serum amylase/lipase levels. 5. The pancreatic tail appears expanded, and small loculated fluid collections in this region likely represent pseudocysts when compared to the 05/30/2022 examination. 6. There is a large simple appearing fluid collection along the greater curvature of the stomach. This causes mass effect on the stomach, is new from 05/30/2022, and also likely represents a pseudocyst. 7. The gastric wall appears thickened and there are surgical clips along the greater curvature. These were also present on 05/30/2022. Correlate clinically for evidence of gastritis. This could be further assessed with endoscopy if clinically warranted. 8. Cardiomegaly and trace pleural effusions. 9. Wall thickening of the right colon is nonspecific and likely represents portal colopathy. Correlate clinically for evidence of a nonspecific infectious/inflammatory colitis. 10. Additional findings as above. ACT 112: Negative or not required by law. Electronically signed by: Tony Morocho M.D. 01/21/2023 2:39 PM PG Care Time/CCT Total # of Minutes Spent Total Time Spent with Patient: Total time spent is greater than 50% in coordination of care (as documented) at patient's floor/unit and/or counseling patient: Coding Level of Care Code 65435 INT INP/OBS CARE 1/40MIN Diagnoses Cirrhosis K74.60 Abdominal ascites K70.31 Ascites type: due to alcoholic cirrhosis (2) Abdominal ascites Ascites type: due to alcoholic cirrhosis Qualified Code(s): K70.31 - Alcoholic cirrhosis of liver with ascites
[2023-01-22 12:43] LABS: Basophils # (auto) 0.01 K/uL (0-0.2); Basophils % (auto) 0.2 %; Eosinophils # (auto) 0.02 K/uL (0-0.50); Eosinophils % (auto) 0.4 %; Hematocrit (blood only) 27.8 % (42.0-52.0); Hemoglobin 9.1 g/dl (14.0-18.0); Immature Granulocytes # (auto) 0.01 K/uL (0.01-0.20); Immature Granulocytes % (auto) 0.2 %; Lymphocytes # (auto) 0.67 K/uL (1.2-3.4); Lymphocytes % (auto) 13.9 %; Mean Corpuscular Hemoglobin 27.8 pg (25.0-34.0); Mean Corpuscular Hgb Conc 32.7 g/dL (32.0-36.0); Mean Platelet Volume 9.2 fL (9.4-12.4); Monocytes # (auto) 0.68 K/uL (0.11-0.59); Monocytes % (auto) 14.1 %; Neutrophils # (auto) 3.43 K/uL (1.40-6.50); Neutrophils % (auto) 71.2 %; Platelet Count 176 K/uL (130-400); RDW Coefficient of Variation 16.5 % (11.5-14.5); RDW Standard Deviation 51.3 fL (36.4-46.3); Red Blood Count 3.27 M/uL (4.70-6.10); White Blood Count 4.82 K/ul (4.8-10.8)
--- NOTE | 2023-01-22 14:54 | Ultrasound Report ---
Ultrasound-guided paracentesis INDICATION: Ascites PROCEDURE: Procedure and risks were explained. Informed consent was obtained. A final timeout was com pleted. The left lower quadrant was prepped and draped in sterile fashion. 1% buffered lidocaine was utilized for skin anesthesia. Utilizing ultrasound guidance, a 5 Chinese safety centesis catheter was advanced into the pocket of teetee hughes. Ultrasound images were obtained. 4.9 L of cloudy yellow ascites fluid was removed and discarde d. The catheter was removed and Band-Aid applied. The patient tolerated the procedure well. Vital sig ns will be monitored prior to discharge. IMPRESSION: Ultrasound-guided paracentesis as above. Performed, dictated, and signed by Elliott Gallo PA-C; to be co-signed by Dr. Maximiliano Orozco. Electronically signed by: Maximiliano Orozco M.D. 01/22/2023 6:11 PM
[2023-01-22] MEDS: ALBUMIN 25% 100 mL 25 GM/100 ML VIAL IV SCH ×2 (14:58→16:38)
[2023-01-22 15:35] LABS: Albumin Peritoneal Fluid < 1.5 gm/dl
[2023-01-22 15:40] LABS: Total Protein Peritoneal Fluid < 3.0 gm/dl
[2023-01-22 16:56] LABS: Appearance Peritoneal Fluid Slightly Hazy; Color Peritoneal Fluid Straw; RBC Peritoneal Fluid Auto < 2000 /uL; WBC Peritoneal Fluid Auto 2108 /ul (0-300)
[2023-01-22 16:59] LABS: Lymphocytes, Fluid 27 %; Mono,Macrophage,Mesothelial 11 %; Neutrophils, Fluid 62 %
[2023-01-22] MEDS ORDERED: GLUCOSE 40% GEL 15 GM TUBE PO PRN (17:27)
[2023-01-22] MEDS ORDERED: GLUCAGON FOR INJ 1 MG VIAL SQ PRN (17:27)
[2023-01-22] MEDS ORDERED: GLUCOSE 10 TAB/TUBE PO PRN (17:27)
[2023-01-22] MEDS ORDERED: DEXTROSE 50% 50 ML SYRINGE IV PRN (17:27)
[2023-01-22] MEDS ORDERED: CARBOHYDRATES FOR HYPOGLYCEMIA PO PRN (17:27)
[2023-01-22] MEDS: INSULIN ASPART PER UNIT CHARGE SC SCH (21:24)
[2023-01-22] MEDS: LANTUS PER UNIT CHARGE SQ SCH (21:25)
--- NOTE | 2023-01-22 22:07 | Electrocardiogram Report ---
Test Reason : Blood Pressure : / mmHG Vent. Rate : 078 BPM Atrial Rate : 078 BPM P-R Int : 190 ms QRS Dur : 092 ms QT Int : 418 ms P-R-T Axes : 002 -31 018 degrees QTc Int : 476 ms Sinus rhythm with Premature atrial complexes Left axis deviation Cannot rule out Anterior infarct , age undetermined Abnormal ECG When compared with ECG of 03-NOV-2022 10:49, T wave inversion no longer evident in Anterior leads Confirmed by Ernesto Montes De Oca ([id number]) on 01/22/2023 10:07:15 PM Referred By: REFERRED SELF Confirmed By:Ernesto Montes De Oca
[2023-01-23] MEDS: LEVOTHYROXINE SODIUM 25 MCG TABLET PO SCH (05:39)
[2023-01-23 07:27] LABS: Hematocrit (blood only) 23.8 % (42.0-52.0); Mean Corpuscular Hemoglobin 28.4 pg (25.0-34.0); Mean Corpuscular Hgb Conc 33.6 g/dL (32.0-36.0); Mean Corpuscular Volume 84.4 fL (80.0-100.0); Mean Platelet Volume 9.1 fL (9.4-12.4); Platelet Count 116 K/uL (130-400); RDW Coefficient of Variation 15.9 % (11.5-14.5); RDW Standard Deviation 48.9 fL (36.4-46.3); Red Blood Count 2.82 M/uL (4.70-6.10); White Blood Count 3.36 K/ul (4.8-10.8)
--- NOTE | 2023-01-23 07:42 | Hospitalist Progress Note ---
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 ascitic fluid culture is pending, gram stain is negative We will try to determine if we can do cultures on ascitic fluid sent yesterday continues on thiamine supplementation orally acute on chronic anorexia, Poor p.o. intake ? due to mass effect on the stomach from pancreatic pseudocyst. High risk candidate for either percutaneous or EUS guided drainage GI consulted recommend large-volume paracentesis which has been completed currently being cultured and have diagnostic studies performed. Coordination with endoscopic ultrasound drainage of pancreatic pseudocyst as an outpatient on Wednesday, January 26 chronic unclear if stable Alcoholic cirrhosis, alcohol use in remission With history of portal gastropathy and varices varices have been slight in the past given recent endoscopy - ammonia is elevated, will start lactulose and hope encephalopathy will improve Continue propranolol 20 mg p.o. twice daily Continue PPI p.o. twice daily No acute bleeding on admission Acute on chronic anemia, concern for acute blood loss anemia, stable hemoglobin at midday Type II DM, chronic, stable but medication needs to be adjusted while npo etc Hold home antiglycemic's Basal bolus insulin is initiated chronic stable Depression/anxiety Continue venlafaxine 150 mg every morning, recently stopped,bupropion Urine screen MDMA likely false positive from bupropion - Patient's stopped his bupropion and dose reduced venlafaxine out of concern for a contributing to his mentation. Is now 5 days out from last bupropion dose, took venlafaxine dose reduced to 150 mg 01/20/23 Hypertension, chronic stable Continue amlodipine, normotensive on admission Chronic pancreatitis, multiple pseudocysts Lipase mildly elevated Hypothyroidism Continue Synthroid, patient has only been on medication for a week and a half TSH unlikely to be changed and will defer repeat DVT prophylaxis: SCDs, defer pharmacal prophylaxis in the setting history of GI bleeds, cirrhosis with varices CODE STATUS: Full code, discussed with patient and at bedside (2) Hypothyroid: (3) Cirrhosis: (4) Esophageal varices: (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: (6) Hypertension: (7) Depression: (8) GERD (gastroesophageal reflux disease): (9) Diabetes mellitus, type 2: (10) Liver cirrhosis, alcoholic: Admission and Anticipated Discharge Date Admission Date: January 21, 2023 Subjective pt is more confused, low grade temp, elevated ammonia, decreased hgb and wbc in peritoneal fluid Physical Exam Physical Exam: Patient was less confused and initially relayed to me by nursing staff. Alert and oriented x2 Card exam is regular Lungs clear Abdominal exam with some minor bilateral lower quadrant tenderness no rebound no guarding Results & Data Results & Data Vital Signs (Past 12 Hours) Vital Signs Temp Pulse Pulse Resp BP Pulse Ox O2 Del Method 01/23/23 04:06 100.0 F H 77 20 129/67 98 Room Air 01/23/23 00:21 78 01/22/23 23:11 99.0 F 69 20 132/75 96 Room Air 01/22/23 22:38 Room Air 01/22/23 19:40 98.6 F 79 20 130/72 97 Room Air Laboratory Results Reviewed repeat hemoglobin stable reviewed chemistry Reviewed profoundly low magnesium PG Care Time/CCT Total # of Minutes Spent Total Time Spent with Patient: Total time spent is greater than 50% in coordination of care (as documented) at patient's floor/unit and/or counseling patient: Coding Level of Care Code 09328 SUB INP/OBS CARE 3/50MIN Diagnoses Lethargy R53.83 Hypothyroid E03.9 Cirrhosis K74.60 Esophageal varices I85.00 Intraductal papillary mucinous neoplasm of pancreas D49.0 Hypertension I10 Hypertension type: essential hypertension Depression F32.9 GERD (gastroesophageal reflux disease) K21.9 Diabetes mellitus, type 2 E11.9 Chronic kidney disease stage 3 subtype: stage 3a (GFR 45-59) Diabetes mellitus senior living insulin use: without senior living use Liver cirrhosis, alcoholic K70.30 Ascites presence: without ascites (6) Hypertension Hypertension type: essential hypertension Qualified Code(s): I10 - Essential (primary) hypertension (9) Diabetes mellitus, type 2 Chronic kidney disease stage 3 subtype: stage 3a (GFR 45-59) 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
[2023-01-23 07:51] LABS: Albumin Globulin Ratio 1.2 (0.9-2); Albumin Level 3.1 gm/dl (3.4-5.0); BUN Creatinine Ratio 19.9 (10-20); Bilirubin,Total 0.8 mg/dl (0.2-1.0); Calcium 8.2 mg/dl (8.6-10.3); Creatinine Clr Calc Pharmacy 41.7 ml/min; Est GFR (African American) 56.6 ml/min; Est GFR (Non-African American) 48.8 ml/min; Globulin 2.5 gm/dl (2.5-4.0); Magnesium 1.3 mg/dl (1.7-2.4); Potassium 3.5 mmol/L (3.5-5.1); Total Protein 5.6 gm/dl (6.0-8.3)
[2023-01-23] MEDS: THIAMINE HCL 100 MG TAB PO SCH (07:59)
[2023-01-23] MEDS: PANTOprazole 40 MG TAB PO SCH ×2 (07:59→20:32)
[2023-01-23] MEDS: VENLAFAXINE HCL XR 150 MG CAPXR PO SCH (07:59)
[2023-01-23] MEDS: MAGNESIUM OXIDE 400 MG TAB PO SCH (07:59)
[2023-01-23] MEDS: PROPRANOLOL HCL 20 MG TAB PO SCH ×2 (07:59→20:32)
[2023-01-23] MEDS: amLODIPine BESYLATE 5 MG TAB PO SCH (07:59)
[2023-01-23] MEDS: ATORVASTATIN 40 MG TAB PO SCH (08:00)
[2023-01-23] MEDS: LACTULOSE SYRUP 20 GM/30 ML UDC PO SCH ×3 (08:43→20:31)
[2023-01-23] MEDS: AMPICILLIN/SULBACTAM SOD 3,000 MG in 0.9 % SODIUM CHLORIDE 100 ML IV SCH ×3 (08:43→20:31)
[2023-01-23] MEDS: MAGNESIUM SULFATE / D5W 1 GM/100 ML BAG IV SCH ×2 (08:44→11:08)
[2023-01-23] MEDS: INSULIN ASPART PER UNIT CHARGE SC SCH ×4 (09:04→20:31)
[2023-01-23] MEDS: LANTUS PER UNIT CHARGE SQ SCH ×2 (09:05→20:31)
[2023-01-23] MEDS: ACETAMINOPHEN 500 MG TAB PO PRN (20:36)
[2023-01-23] MEDS: oxyCODONE HCL IR 5 MG TAB (IMMEDIATE RELEASE) PO PRN (23:17)
[2023-01-24] MEDS: AMPICILLIN/SULBACTAM SOD 3,000 MG in 0.9 % SODIUM CHLORIDE 100 ML IV SCH ×4 (02:07→20:43)
[2023-01-24] MEDS: LEVOTHYROXINE SODIUM 25 MCG TABLET PO SCH (05:29)
[2023-01-24 06:46] LABS: Hematocrit (blood only) 24.9 % (42.0-52.0); Hemoglobin 8.3 g/dl (14.0-18.0); Mean Corpuscular Hemoglobin 27.8 pg (25.0-34.0); Mean Corpuscular Hgb Conc 33.3 g/dL (32.0-36.0); Mean Corpuscular Volume 83.3 fL (80.0-100.0); Mean Platelet Volume 9.1 fL (9.4-12.4); Platelet Count 112 K/uL (130-400); RDW Standard Deviation 49.3 fL (36.4-46.3); Red Blood Count 2.99 M/uL (4.70-6.10); White Blood Count 4.12 K/ul (4.8-10.8)
[2023-01-24 07:09] LABS: Albumin Globulin Ratio 1.1 (0.9-2); Albumin Level 2.8 gm/dl (3.4-5.0); Bilirubin,Total 0.6 mg/dl (0.2-1.0); Calcium 8.3 mg/dl (8.6-10.3); Est GFR (African American) 57.1 ml/min; Est GFR (Non-African American) 49.2 ml/min; Globulin 2.6 gm/dl (2.5-4.0); Magnesium 1.6 mg/dl (1.7-2.4); Potassium 3.1 mmol/L (3.5-5.1); Total Protein 5.4 gm/dl (6.0-8.3)
--- NOTE | 2023-01-24 08:18 | Hospitalist Progress Note ---
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 ascitic fluid culture is negative to date, gram stain is negative started on unasyn, if cultlures negative at 72 hours will d/c continues on thiamine supplementation orally acute on chronic anorexia, Poor p.o. intake ? due to mass effect on the stomach from pancreatic pseudocyst. High risk candidate for either percutaneous or EUS guided drainage GI consulted recommend large-volume paracentesis which has been completed currently being cultured and have diagnostic studies performed. 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 twice daily Continue PPI p.o. twice daily Acute on chronic anemia, concern for acute blood loss anemia, stable hemoglobin in 8 gram range Type II DM, chronic, stable Hold home antiglycemic's Basal bolus insulin is initiated chronic stable Depression/anxiety Continue venlafaxine 150 mg every morning, recently stopped,bupropion Urine screen MDMA likely false positive from bupropion - Patient's stopped his bupropion and dose reduced venlafaxine out of concern for a contributing to his mentation. Is now 5 days out from last bupropion dose, took venlafaxine dose reduced to 150 mg 01/20/23 Hypertension, chronic stable Continue amlodipine, normotensive on admission Chronic pancreatitis, multiple pseudocysts Lipase mildly elevated Hypothyroidism Continue Synthroid, patient has only been on medication for a week and a half TSH unlikely to be changed and will defer repeat DVT prophylaxis: SCDs, defer pharmacal prophylaxis in the setting history of GI bleeds, cirrhosis with varices CODE STATUS: Full code, discussed with patient and at bedside (2) Hypothyroid: (3) Cirrhosis: (4) Esophageal varices: (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: (6) Hypertension: (7) Depression: (8) GERD (gastroesophageal reflux disease): (9) Diabetes mellitus, type 2: (10) Liver cirrhosis, alcoholic: Admission and Anticipated Discharge Date Admission Date: January 21, 2023 Subjective pt is pleasant and confusion resolved hopeful to have outpt eus and cyst drainage this week in [place] Physical Exam Physical Exam: pt is awake and appropriate no abdominal pain, some distension Results & Data Results & Data Vital Signs (Past 12 Hours) Vital Signs Temp Pulse Pulse Pulse Resp BP Pulse Ox 01/24/23 07:43 98.4 F 74 16 132/68 96 01/24/23 04:40 98.2 F 70 20 126/73 94 01/23/23 23:40 98.4 F 62 20 122/73 96 01/23/23 22:55 70 01/23/23 21:38 O2 Del Method 01/24/23 07:43 Room Air 01/24/23 04:40 Room Air 01/23/23 23:40 Room Air 01/23/23 22:55 01/23/23 21:38 Room Air Laboratory Results Reviewed CBC Reviewed chemistry Ordered electrolyte replacement Reduce lactulose dosing PG Care Time/CCT Total # of Minutes Spent Total Time Spent with Patient: Total time spent is greater than 50% in coordination of care (as documented) at patient's floor/unit and/or counseling patient: Coding Level of Care Code 67636 SUB INP/OBS CARE 2/35MIN Diagnoses Lethargy R53.83 Hypothyroid E03.9 Cirrhosis K74.60 Esophageal varices I85.00 Intraductal papillary mucinous neoplasm of pancreas D49.0 Hypertension I10 Hypertension type: essential hypertension Depression F32.9 GERD (gastroesophageal reflux disease) K21.9 Diabetes mellitus, type 2 E11.9 Chronic kidney disease stage 3 subtype: stage 3a (GFR 45-59) Diabetes mellitus vermin exterminator insulin use: without nursing home use Liver cirrhosis, alcoholic K70.30 Ascites presence: without ascites (6) Hypertension Hypertension type: essential hypertension Qualified Code(s): I10 - Essential (primary) hypertension (9) Diabetes mellitus, type 2 Chronic kidney disease stage 3 subtype: stage 3a (GFR 45-59) Diabetes mellitus nursing home insulin use: without vermin exterminator use (10) Liver cirrhosis, alcoholic Ascites presence: without ascites Qualified Code(s): K70.30 - Alcoholic cirrhosis of liver without ascites
[2023-01-24] MEDS: INSULIN ASPART PER UNIT CHARGE SC SCH ×4 (08:52→20:44)
[2023-01-24] MEDS: LANTUS PER UNIT CHARGE SQ SCH ×2 (08:53→20:44)
[2023-01-24] MEDS: THIAMINE HCL 100 MG TAB PO SCH (09:00)
[2023-01-24] MEDS: POTASSIUM CHLORIDE / WTR 10 MEQ/100 ML PLCT IV SCH ×3 (09:00→11:39)
[2023-01-24] MEDS: PROPRANOLOL HCL 20 MG TAB PO SCH ×2 (09:01→20:44)
[2023-01-24] MEDS: MAGNESIUM OXIDE 400 MG TAB PO SCH (09:01)
[2023-01-24] MEDS: PANTOprazole 40 MG TAB PO SCH ×2 (09:01→20:44)
[2023-01-24] MEDS: ATORVASTATIN 40 MG TAB PO SCH (09:02)
[2023-01-24] MEDS: amLODIPine BESYLATE 5 MG TAB PO SCH (09:02)
[2023-01-24] MEDS: VENLAFAXINE HCL XR 150 MG CAPXR PO SCH (09:02)
[2023-01-24] MEDS: LACTULOSE SYRUP 20 GM/30 ML UDC PO SCH (09:04)
[2023-01-24] MEDS: POTASSIUM CHLORIDE CRTAB 20 MEQ TABCR PO SCH (09:24)
[2023-01-24] MEDS: MAGNESIUM SULFATE / D5W 1 GM/100 ML BAG IV SCH ×2 (13:34→15:58)
[2023-01-24] MEDS ORDERED: MAGNESIUM SULFATE / D5W 1 GM/100 ML BAG IV SCH (16:00)
[2023-01-24] MEDS: ACETAMINOPHEN 500 MG TAB PO PRN (17:52)
[2023-01-24] MEDS: SIMETHICONE 80 MG CHEW PO PRN (18:39)
[2023-01-24] MEDS: oxyCODONE HCL IR 5 MG TAB (IMMEDIATE RELEASE) PO PRN (19:29)
[2023-01-25] MEDS: AMPICILLIN/SULBACTAM SOD 3,000 MG in 0.9 % SODIUM CHLORIDE 100 ML IV SCH ×4 (03:40→20:08)
[2023-01-25] MEDS: LEVOTHYROXINE SODIUM 25 MCG TABLET PO SCH (05:36)
[2023-01-25 07:31] LABS: Hematocrit (blood only) 27.6 % (42.0-52.0); Mean Corpuscular Hemoglobin 27.8 pg (25.0-34.0); Mean Corpuscular Hgb Conc 32.6 g/dL (32.0-36.0); Mean Corpuscular Volume 85.2 fL (80.0-100.0); Mean Platelet Volume 9.5 fL (9.4-12.4); Platelet Count 153 K/uL (130-400); RDW Standard Deviation 50.2 fL (36.4-46.3); Red Blood Count 3.24 M/uL (4.70-6.10); White Blood Count 6.92 K/ul (4.8-10.8)
[2023-01-25] MEDS: THIAMINE HCL 100 MG TAB PO SCH (08:05)
[2023-01-25] MEDS: PROPRANOLOL HCL 20 MG TAB PO SCH ×2 (08:05→20:59)
[2023-01-25] MEDS: LACTULOSE SYRUP 20 GM/30 ML UDC PO SCH (08:05)
[2023-01-25] MEDS: MAGNESIUM OXIDE 400 MG TAB PO SCH (08:05)
[2023-01-25] MEDS: amLODIPine BESYLATE 5 MG TAB PO SCH (08:05)
[2023-01-25] MEDS: PANTOprazole 40 MG TAB PO SCH ×2 (08:05→20:59)
[2023-01-25] MEDS: VENLAFAXINE HCL XR 150 MG CAPXR PO SCH (08:06)
[2023-01-25] MEDS: ATORVASTATIN 40 MG TAB PO SCH (08:06)
[2023-01-25] MEDS: POTASSIUM CHLORIDE CRTAB 20 MEQ TABCR PO SCH (08:08)
[2023-01-25] MEDS: INSULIN ASPART PER UNIT CHARGE SC SCH ×4 (08:13→21:00)
[2023-01-25] MEDS: LANTUS PER UNIT CHARGE SQ SCH ×2 (08:23→21:00)
[2023-01-25 10:50] LABS: Albumin Level 2.8 gm/dl (3.4-5.0); Bilirubin,Total 0.6 mg/dl (0.2-1.0); Calcium 8.4 mg/dl (8.6-10.3); Magnesium 1.8 mg/dl (1.7-2.4); Potassium 3.3 mmol/L (3.5-5.1)
[2023-01-25 10:56] LABS: BUN Creatinine Ratio 16.4 (10-20); Creatinine Clr Calc Pharmacy 40.5 ml/min; Est GFR (African American) 54.6 ml/min; Est GFR (Non-African American) 47.1 ml/min; Globulin 2.9 gm/dl (2.5-4.0); Total Protein 5.7 gm/dl (6.0-8.3)
[2023-01-25] MEDS ORDERED: POTASSIUM CHLORIDE CRTAB 20 MEQ TABCR PO STA (11:28)
--- NOTE | 2023-01-25 12:41 | Hospitalist Progress Note ---
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 GI consulted recommend large-volume paracentesis which has been completed currently being cultured and have diagnostic studies performed. 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 twice daily Continue PPI p.o. twice daily Acute on chronic anemia, concern for acute blood loss anemia, stable hemoglobin Type II DM, chronic, stable Hold home antiglycemic's Basal bolus insulin is initiated chronic stable Depression/anxiety Continue venlafaxine 150 mg every morning, recently stopped,bupropion Urine screen MDMA likely false positive from bupropion - Patient's stopped his bupropion and dose reduced venlafaxine out of concern for a contributing to his mentation. 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: (6) Hypertension: (7) Depression: (8) GERD (gastroesophageal reflux disease): (9) Diabetes mellitus, type 2: (10) Liver cirrhosis, alcoholic: Admission and Anticipated Discharge Date Admission Date: January 21, 2023 Subjective pt is pleasant and confusion resolved, now more distension to abdomen, tender in lower quadrants hopeful to have outpt eus and cyst drainage 01/26/23 at 2 pm Physical Exam Physical Exam: pt is awake and appropriate dull distended abdomen tender in lower quadrants Results & Data Results & Data Vital Signs (Past 12 Hours) Vital Signs Temp Pulse Pulse Resp BP BP Pulse Ox 01/25/23 11:23 98.6 F 88 16 135/80 95 01/25/23 08:00 01/25/23 07:37 98.6 F 83 16 110/68 96 01/25/23 07:25 87 01/25/23 03:24 98.2 F 75 18 129/68 97 O2 Del Method 01/25/23 11:23 Room Air 01/25/23 08:00 Room Air 01/25/23 07:37 Room Air 01/25/23 07:25 01/25/23 03:24 Room Air Laboratory Results reviewed cbc reviewed prp PG Care Time/CCT Total # of Minutes Spent Total Time Spent with Patient: Total time spent is greater than 50% in coordination of care (as documented) at patient's floor/unit and/or counseling patient: Coding Level of Care Code 29320 SUB INP/OBS CARE 3/50MIN Diagnoses Lethargy R53.83 Hypothyroid E03.9 Cirrhosis K74.60 Esophageal varices I85.00 Intraductal papillary mucinous neoplasm of pancreas D49.0 Hypertension I10 Hypertension type: essential hypertension Depression F32.9 GERD (gastroesophageal reflux disease) K21.9 Diabetes mellitus, type 2 E11.9 Diabetes mellitus group home insulin use: without rodent exterminator use Chronic kidney disease stage 3 subtype: stage 3a (GFR 45-59) Liver cirrhosis, alcoholic K70.30 Ascites presence: without ascites (6) Hypertension Hypertension type: essential hypertension Qualified Code(s): I10 - Essential (primary) hypertension (9) Diabetes mellitus, type 2 Diabetes mellitus rodent exterminator insulin use: without rodent exterminator use Chronic kidney disease stage 3 subtype: stage 3a (GFR 45-59) (10) Liver cirrhosis, alcoholic Ascites presence: without ascites Qualified Code(s): K70.30 - Alcoholic cirrhosis of liver without ascites
--- NOTE | 2023-01-25 13:03 | Hospitalist Progress Note ---
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 GI consulted recommend large-volume paracentesis which has been completed currently being cultured and have diagnostic studies performed. 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 twice daily Continue PPI p.o. twice daily - EMILIO poa resolved Acute on chronic anemia, concern for acute blood loss anemia, stable hemoglobin Type II DM, chronic, stable Hold home antiglycemic's Basal bolus insulin is initiated chronic stable Depression/anxiety Continue venlafaxine 150 mg every morning, recently stopped,bupropion Urine screen MDMA likely false positive from bupropion - Patient's stopped his bupropion and dose reduced venlafaxine out of concern for a contributing to his mentation. 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: (6) Hypertension: (7) Depression: (8) GERD (gastroesophageal reflux disease): (9) Diabetes mellitus, type 2: (10) Liver cirrhosis, alcoholic: Admission and Anticipated Discharge Date Admission Date: January 21, 2023 Results & Data Results & Data Vital Signs (Past 12 Hours) Vital Signs Temp Pulse Pulse Resp BP BP Pulse Ox 01/25/23 11:23 98.6 F 88 16 135/80 95 01/25/23 08:00 01/25/23 07:37 98.6 F 83 16 110/68 96 01/25/23 07:25 87 01/25/23 03:24 98.2 F 75 18 129/68 97 O2 Del Method 01/25/23 11:23 Room Air 01/25/23 08:00 Room Air 01/25/23 07:37 Room Air 01/25/23 07:25 01/25/23 03:24 Room Air PG Care Time/CCT Total # of Minutes Spent Total Time Spent with Patient: Total time spent is greater than 50% in coordination of care (as documented) at patient's floor/unit and/or counseling patient: Coding Level of Care Code None Diagnoses Lethargy R53.83 Hypothyroid E03.9 Cirrhosis K74.60 Esophageal varices I85.00 Intraductal papillary mucinous neoplasm of pancreas D49.0 Hypertension I10 Hypertension type: essential hypertension Depression F32.9 GERD (gastroesophageal reflux disease) K21.9 Diabetes mellitus, type 2 E11.9 Diabetes mellitus snf insulin use: without terminal clerk use Chronic kidney disease stage 3 subtype: stage 3a (GFR 45-59) Liver cirrhosis, alcoholic K70.30 Ascites presence: without ascites (6) Hypertension Hypertension type: essential hypertension Qualified Code(s): I10 - Essential (primary) hypertension (9) Diabetes mellitus, type 2 Diabetes mellitus terminal clerk insulin use: without terminal clerk use Chronic kidney disease stage 3 subtype: stage 3a (GFR 45-59) (10) Liver cirrhosis, alcoholic Ascites presence: without ascites Qualified Code(s): K70.30 - Alcoholic cirrhosis of liver without ascites
--- NOTE | 2023-01-25 14:51 | Ultrasound Report ---
Ultrasound-guided paracentesis INDICATION: Ascites PROCEDURE: Procedure and risks were explained. Informed consent was obtained. A final timeout was com pleted. The left lower quadrant was prepped and draped in sterile fashion. 1% buffered lidocaine was utilized for skin anesthesia. Utilizing ultrasound guidance, a 5 Faroese safety centesis catheter was advanced into the pocket of teetee hughes. Ultrasound images were obtained. 3.1 L of cloudy yellow ascites fluid was removed and discarde d. The catheter was removed and Band-Aid applied. The patient tolerated the procedure well. Vital sig ns will be monitored on the floor. IMPRESSION: Ultrasound-guided paracentesis as above. Performed, dictated, and signed by Elliott Gallo PA-C; to be co-signed by Dr. Duane Pal. Electronically signed by: Duane Pal M.D. 01/26/2023 12:58 PM
[2023-01-25] MEDS: ACETAMINOPHEN 500 MG TAB PO PRN (16:55)
[2023-01-25] MEDS: SIMETHICONE 80 MG CHEW PO PRN ×2 (17:30→21:07)
[2023-01-26] MEDS: AMPICILLIN/SULBACTAM SOD 3,000 MG in 0.9 % SODIUM CHLORIDE 100 ML IV SCH ×2 (02:08→08:17)
[2023-01-26] MEDS: LEVOTHYROXINE SODIUM 25 MCG TABLET PO SCH (05:27)
[2023-01-26] MEDS: PROPRANOLOL HCL 20 MG TAB PO SCH (08:10)
[2023-01-26] MEDS: ATORVASTATIN 40 MG TAB PO SCH (08:10)
[2023-01-26] MEDS: THIAMINE HCL 100 MG TAB PO SCH (08:10)
[2023-01-26] MEDS: PANTOprazole 40 MG TAB PO SCH (08:10)
[2023-01-26] MEDS: MAGNESIUM OXIDE 400 MG TAB PO SCH (08:11)
[2023-01-26] MEDS: SIMETHICONE 80 MG CHEW PO PRN (08:11)
[2023-01-26] MEDS: VENLAFAXINE HCL XR 150 MG CAPXR PO SCH (08:11)
[2023-01-26] MEDS: amLODIPine BESYLATE 5 MG TAB PO SCH (08:11)
[2023-01-26] MEDS: LACTULOSE SYRUP 20 GM/30 ML UDC PO SCH (08:11)
[2023-01-26] MEDS: INSULIN ASPART PER UNIT CHARGE SC SCH (08:18)
[2023-01-26] MEDS: LANTUS PER UNIT CHARGE SQ SCH (08:18)
--- NOTE | 2023-01-26 08:20 | Discharge Summary ---
Date of Service January 26, 2023 Admission HPI Per Admitting Provider Gary is an 82-year-old male with a past medical history of prior alcohol dependence, depression, GERD, alcoholic cirrhosis, anemia with histories of varices who presented to the ER after increasing lethargy since a fall 4 days ago. Patient denies any recent alcohol intake. Gary is seen in the ER. 'Anatoliy I just feel not great, sick. I'm tired a lot and not very hungry. Did not take morning medications. +Nausea, no vomiting. Some loose bowels movements, but brown and no blood/melena. Saw Dr. Nava for GI in the past, no recurrence since then. Appetite has been diminished for 1-2 weeks. Has pain across the low abdomen, was worse last week but feels better today compared to early in the week. Pain is lower int he abdomen and bilateral, no uper quadrant pain. Feels more like an uncomfortable pressure. No bleeding. Takes hydrocodone for general pain and post surgical neck pain. 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 No history of strokes. Prescribed by [facility]. No longer takes buproprion/wellbutrin. Takes venlafaxine, now takes venlafaxine 150mg total. Has not taken this week at all due to some confusion and fatigue. Takes synthroid, just started 1.5 weeks ago Takes gabapentin 400mg at night Takes amlodipine 5mg AM, DM meds x2 metformin and alogliptin Does not take meclizine Propranolol 20mg BID PPI BID Stopped wellbutrin/buproprion after falling on Wednesday. Medical History: Reviewed Medications: Reviewed Surgical History: Reviewed Family history: Reviewed Allergies: Reviewed Social History: Former etoh none since 10/2022. No tobacco use. No mairjuana use. Code Status: Full Labs independently reviewed. No leukocytosis Hemoglobin 9.8, last 9.6 on 12/14/2022. MCV 86. Platelets 190 INR 1.2 VB.3 / on admission Sodium 135, potassium 4.3 Creatinine baseline less than 1, admitting creatinine 1.92 suspect prerenal with poor intake Magnesium 1.4 CK17 High-sensitivity troponin normal Lipase 99 Urine opiates positive, MDMA positive suspect false positive cross-reactive COVID pending CTA/P: Cirrhotic liver. Splenomegaly with large amount of abdominal pelvic ascites, esophageal varices. Evidence of chronic pancreatitis. Pancreatic tail expansion with small loculated fluid collections suspicious for pseudocysts. Large simple appearing fluid collection in the greater curvature of the stomach suspicious for pseudocyst causing mass effect. Gastric wall thickening and surgical clips along the greater curvature suspicious for gastritis. Cardiomegaly with trace effusions. Nonspecific right colonic wall thickening suspicious for portal colopathy Pelvic x-ray: No acute fracture/no acute findings CThead: No acute findings CXR: No acute findings CTC-spine: No acute fracture/subluxation. Chronic compression fracture noted at T1 new compared to 2020. Postsurgical findings are noted. Principal Diagnosis gib bleed pancreatiic pseudocyst cirrhosis acute blood loss anemia Discharge Data Allergies Allergy/AdvReac Type Severity Reaction Status Date / Time etodolac AdvReac n/v Verified 01/21/23 15:06 meloxicam AdvReac n/v Verified 01/21/23 15:06 Consultations 01/21/23 14:50 ED Decision to Admit Stat 01/21/23 17:31 Consult Gastroenterology Routine Ordered Studies 01/21/23 12:11 CT cervical spine wo con Stat CT head/brain wo con Stat 01/21/23 13:18 CT abd pelvis wo con Stat 01/22/23 IR paracentesis abd w/img US Routine 01/25/23 10:10 IR paracentesis abd w/img US Routine Hospital Course (1) Lethargy: Lethargy, suspect 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 GI consulted recommend large-volume paracentesis which has been completed currently being cultured and have diagnostic studies performed. 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 twice daily Continue PPI p.o. twice daily - EMILIO poa resolved consider spironolactone however blood pressure is lower and may prevent the use of this Acute on chronic anemia, concern for acute blood loss anemia, stable hemoglobin Type II DM, chronic, stable Home diabetic meds should continue look left and because his Child-Muniz score is calculated to be be but his metformin should be held and likely will need to be on some basal bolus insulin in addition Basal bolus insulin is initiated in the hospital and the medication levels used are transmitted on the discharge paperwork chronic stable Depression/anxiety Continue venlafaxine 150 mg every morning, recently stopped,bupropion Urine screen MDMA likely false positive from bupropion - Patient's stopped his bupropion and dose reduced venlafaxine out of concern for a contributing to his mentation. 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: (6) Hypertension: (7) Depression: (8) GERD (gastroesophageal reflux disease): (9) Diabetes mellitus, type 2: (10) Liver cirrhosis, alcoholic: Discharge Plan Discharge Items Patient Disposition: Transfer Acute Care Hospital Reason For Visit: WEAKNESS, EMILOI Discharge Diagnosis: cirrhosis abdominal ascites pancreatic fluid collections deconditioning Activity: Per Instructions section Activity Comment: needs assistance in walking Non-emergency contact: Primary Care Provider and Conductor/Brakeman Call non-emergency contact if: your symptoms worsen Follow-up/Referrals: Elliott Ng CRNP [Primary Care Provider] - 02/02/23 8:20 am Diet: Low Sodium (2gm) Addtl Attending Provider Instructions: you have injury to your liver and need to watch your salt and fluid intake, weigh youself daily and keep track, and increase in weight could be re accumulation of fluid in your abdomen follow discharge instructions that are given to you by [facility] Pending Studies at Discharge: Yes (final abdominal fluid analysis) Stand-Alone Forms: [facility] [employer], Smoking Cessation Skilled Items Lines: Saline Lock Urinary Catheter: No Medications and DC Order Prescriptions: New insulin aspart U-100 [Novolog U-100 Insulin aspart] 100 unit/mL Solution 1 sliding scale dose SC ACHS Qty: 10 0RF Rx Instructions: --Goal BSG Range: Low _110mg/dL, High 150mg/dL --Correction Factor: 25_mg/dL/unit --Carbohydrate ratio = _15_ g/unit --BSGs ACHS if eating, q6h if npo insulin glargine 100 unit/mL (3 mL) insulin pen 5 unit subcut BID Qty: 15 0RF ciprofloxacin HCl [Cipro] 500 mg tablet 500 mg PO BID Qty: 10 0RF propranolol 10 mg tablet 10 mg PO BID Qty: 60 0RF Continued alogliptin 25 mg tablet 25 mg PO QAM cholecalciferol (vitamin D3) 25 mcg (1,000 unit) capsule 25 mcg PO QAM levothyroxine 25 mcg tablet 25 mcg PO DAILY Qty: 90 2RF atorvastatin 80 mg tablet 80 mg PO QAM pantoprazole 40 mg tablet,delayed release (DR/EC) 40 mg PO AMHS ondansetron 4 mg tablet,disintegrating 4 mg PO Q6H PRN (Reason: Nausea) gabapentin 400 mg capsule 400 mg PO HS ferrous sulfate 325 mg (65 mg iron) tablet,delayed release (DR/EC) 325 mg PO QDD fluticasone propionate 50 mcg/actuation spray,suspension 1 spray intranasal QAM Rx Instructions: administer into each nostril thiamine HCl (vitamin B1) 100 mg tablet 200 mg PO QAM magnesium oxide 400 mg (241.3 mg magnesium) tablet 400 mg PO QAM meclizine 25 mg tablet 25 mg PO BID PRN (Reason: Dizziness) Changed venlafaxine 75 mg capsule,extended release 24hr 150 mg PO QAM Qty: 60 6RF Rx Instructions: 3 capsule dose Discontinued lidocaine [Lidoderm] 5 % adhesive patch,medicated 1 patch topical DAILY Rx Instructions: leave on most painful area for up to 12 hrs diclofenac sodium [Voltaren Arthritis Pain] 1 % gel 2 g topical QID PRN (Reason: Pain) Rx Instructions: wrist,hand or elbow pain amlodipine 5 mg tablet 5 mg PO QAM ascorbic acid (vitamin C) 250 mg tablet 250 mg PO QAM bupropion HCl [Wellbutrin SR] 150 mg tablet sustained-release 12 hr 150 mg PO QAM metformin 1,000 mg tablet 1,000 mg PO BIDM Discharge Orders: Discharge Order (Routine); Ordered 01/26/23 Ordered By: Solo Sterling/Other Patient Handouts: Tests for Liver Disease, Understanding Cirrhosis, ED Ascites, ED Encephalitis, Viral Admission Data Admit Date/Time: 01/21/23 15:59 Attending Provider: Solo Danrell Admit Provider: Duane Wilkes Primary Care Provider: Elliott Ng Other Providers: Duane Wilkes ; Ashwin Nava Other Interventions: Discharge Summary Assessment (RN) Last Done: 01/26/23 11:24 Coding Level of Care Code 22726 INP/OBS DISCH >30 MIN Diagnoses Lethargy R53.83 Hypothyroid E03.9 Cirrhosis K74.60 Esophageal varices I85.00 Intraductal papillary mucinous neoplasm of pancreas D49.0 Hypertension I10 Hypertension type: essential hypertension Depression F32.9 GERD (gastroesophageal reflux disease) K21.9 Diabetes mellitus, type 2 E11.9 Chronic kidney disease stage 3 subtype: stage 3a (GFR 45-59) Diabetes mellitus fdc insulin use: without fdc use Liver cirrhosis, alcoholic K70.30 Ascites presence: without ascites
[2023-01-26] MEDS: POTASSIUM CHLORIDE CRTAB 20 MEQ TABCR PO SCH (08:21)
[2023-01-26 08:55] LABS: Hematocrit (blood only) 22.8 % (42.0-52.0); Hemoglobin 7.3 g/dl (14.0-18.0); Mean Corpuscular Volume 84.4 fL (80.0-100.0); Mean Platelet Volume 10.1 fL (9.4-12.4); Platelet Count 201 K/uL (130-400); RDW Coefficient of Variation 16.3 % (11.5-14.5); RDW Standard Deviation 50.7 fL (36.4-46.3); White Blood Count 9.33 K/ul (4.8-10.8)
[2023-01-26 09:14] LABS: Albumin Level 2.5 gm/dl (3.4-5.0); BUN Creatinine Ratio 17.4 (10-20); Bilirubin,Total 0.6 mg/dl (0.2-1.0); Creatinine Clr Calc Pharmacy 37.9 ml/min; Est GFR (African American) 50.6 ml/min; Est GFR (Non-African American) 43.7 ml/min; Globulin 2.5 gm/dl (2.5-4.0); Potassium 4.2 mmol/L (3.5-5.1)
[2023-01-26] MEDS ORDERED: SODIUM CHLORIDE 0.9% 250 ML IV PRN (10:43)
[2023-01-26] MEDS ORDERED: PHYTONADIONE 5 MG in DEXTROSE 5% 50 ML IV ONE (11:00)
--- NOTE | 2023-01-26 18:35 | Discharge Summary ---
Date of Service January 26, 2023 Admission HPI Per Admitting Provider Gary is an 82-year-old male with a past medical history of prior alcohol dependence, depression, GERD, alcoholic cirrhosis, anemia with histories of varices who presented to the ER after increasing lethargy since a fall 4 days ago. Patient denies any recent alcohol intake. Gary is seen in the ER. 'Anatoliy I just feel not great, sick. I'm tired a lot and not very hungry. Did not take morning medications. +Nausea, no vomiting. Some loose bowels movements, but brown and no blood/melena. Saw Dr. Nava for GI in the past, no recurrence since then. Appetite has been diminished for 1-2 weeks. Has pain across the low abdomen, was worse last week but feels better today compared to early in the week. Pain is lower int he abdomen and bilateral, no uper quadrant pain. Feels more like an uncomfortable pressure. No bleeding. Takes hydrocodone for general pain and post surgical neck pain. 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 No history of strokes. Prescribed by [facility]. No longer takes buproprion/wellbutrin. Takes venlafaxine, now takes venlafaxine 150mg total. Has not taken this week at all due to some confusion and fatigue. Takes synthroid, just started 1.5 weeks ago Takes gabapentin 400mg at night Takes amlodipine 5mg AM, DM meds x2 metformin and alogliptin Does not take meclizine Propranolol 20mg BID PPI BID Stopped wellbutrin/buproprion after falling on Wednesday. Medical History: Reviewed Medications: Reviewed Surgical History: Reviewed Family history: Reviewed Allergies: Reviewed Social History: Former etoh none since 10/2022. No tobacco use. No mairjuana use. Code Status: Full Labs independently reviewed. No leukocytosis Hemoglobin 9.8, last 9.6 on 12/14/2022. MCV 86. Platelets 190 INR 1.2 VB.3 / on admission Sodium 135, potassium 4.3 Creatinine baseline less than 1, admitting creatinine 1.92 suspect prerenal with poor intake Magnesium 1.4 CK17 High-sensitivity troponin normal Lipase 99 Urine opiates positive, MDMA positive suspect false positive cross-reactive COVID pending CTA/P: Cirrhotic liver. Splenomegaly with large amount of abdominal pelvic ascites, esophageal varices. Evidence of chronic pancreatitis. Pancreatic tail expansion with small loculated fluid collections suspicious for pseudocysts. Large simple appearing fluid collection in the greater curvature of the stomach suspicious for pseudocyst causing mass effect. Gastric wall thickening and surgical clips along the greater curvature suspicious for gastritis. Cardiomegaly with trace effusions. Nonspecific right colonic wall thickening suspicious for portal colopathy Pelvic x-ray: No acute fracture/no acute findings CThead: No acute findings CXR: No acute findings CTC-spine: No acute fracture/subluxation. Chronic compression fracture noted at T1 new compared to 2020. Postsurgical findings are noted. Principal Diagnosis upper gi bleed pancreatic pseudocyst cirrhosis, with ascites functional parapelegia Discharge Exam pt was pale with stabe VSS melena and some mild abdominal pain, no acute abdomen Discharge Data Allergies Allergy/AdvReac Type Severity Reaction Status Date / Time etodolac AdvReac n/v Verified 01/21/23 15:06 meloxicam AdvReac n/v Verified 01/21/23 15:06 Consultations 01/21/23 14:50 ED Decision to Admit Stat 01/21/23 17:31 Consult Gastroenterology Routine Ordered Studies 01/21/23 12:11 CT cervical spine wo con Stat CT head/brain wo con Stat 01/21/23 13:18 CT abd pelvis wo con Stat 01/22/23 IR paracentesis abd w/img US Routine 01/25/23 10:10 IR paracentesis abd w/img US Routine Hospital Course (1) Lethargy: Acute GIB with history of varices, erosive gastropathy with bleeding, pt was supposed to have outpt endo with EUS, caller Dr Kemp and recommend transfer to [facility], pt accepted by Dr Ac, given vitamin K 5 mg iv, send via als for endoscopy Lethargy, suspect acute on chronic toxic encephalopathy from medication, hepatic encephalopathy with elevated ammonia resolved with lactulose therapy started on 01/23/2023 now resolved with continued abdominal pain and re accumulation of ascites, will complete 7 day course total antibioitcs for SBP, using cipro continues on thiamine supplementation orally acute on chronic anorexia, due to mass effect on the stomach from pancreatic pseudocyst. GI consulted recommend large-volume paracentesis which has been completed currently being cultured and have diagnostic studies performed. REaccumulation will repeat paracentesis 01/26/23 Coordination with endoscopic ultrasound drainage of pancreatic pseudocyst as an outpatient on January 26 at 2 pm in [facility] chronic unclear if stable Alcoholic cirrhosis, alcohol use in remission With history of portal gastropathy and varices , anemia present but stable - hyperammonemia did improved with lactulose Continue propranolol 20 mg p.o. twice daily Continue PPI p.o. twice daily - EMILIO poa resolved consider spironolactone however blood pressure is lower and may prevent the use of this Acute on chronic anemia, concern for acute blood loss anemia,gib started overnight and hgb dropped to 7.3, transfered to [facility] Type II DM, chronic, stable Home diabetic meds should continue look left and because his Child-Muniz score is calculated to be be but his metformin should be held and likely will need to be on some basal bolus insulin in addition Basal bolus insulin is initiated in the hospital and the medication levels used are transmitted on the discharge paperwork chronic stable Depression/anxiety Continue venlafaxine 150 mg every morning, recently stopped,bupropion Urine screen MDMA likely false positive from bupropion - Patient's stopped his bupropion and dose reduced venlafaxine out of concern for a contributing to his mentation. 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: (6) Hypertension: (7) Depression: (8) GERD (gastroesophageal reflux disease): (9) Diabetes mellitus, type 2: (10) Liver cirrhosis, alcoholic: Total Time Total Time Spent Total Time Spent (In Minutes): It required greater than 30 minutes to prepare this patient for discharge Discharge Plan Discharge Items Patient Disposition: Transfer Acute Care Hospital Reason For Visit: WEAKNESS, EMILIO Discharge Diagnosis: cirrhosis abdominal ascites pancreatic fluid collections deconditioning Activity: Per Instructions section Activity Comment: needs assistance in walking Non-emergency contact: Primary Care Provider and [employer] Call non-emergency contact if: your symptoms worsen Follow-up/Referrals: Elliott Ng CRNP [Primary Care Provider] - 02/02/23 8:20 am Diet: Low Sodium (2gm) Addtl Attending Provider Instructions: you have injury to your liver and need to watch your salt and fluid intake, weigh youself daily and keep track, and increase in weight could be re accumulation of fluid in your abdomen follow discharge instructions that are given to you by [facility] Pending Studies at Discharge: Yes (final abdominal fluid analysis) Stand-Alone Forms: My [employer], Smoking Cessation Skilled Items Lines: Saline Lock Urinary Catheter: No Medications and DC Order Prescriptions: New insulin aspart U-100 [Novolog U-100 Insulin aspart] 100 unit/mL Solution 1 sliding scale dose SC ACHS Qty: 10 0RF Rx Instructions: --Goal BSG Range: Low _110mg/dL, High 150mg/dL --Correction Factor: 25_mg/dL/unit --Carbohydrate ratio = _15_ g/unit --BSGs ACHS if eating, q6h if npo insulin glargine 100 unit/mL (3 mL) insulin pen 5 unit subcut BID Qty: 15 0RF ciprofloxacin HCl [Cipro] 500 mg tablet 500 mg PO BID Qty: 10 0RF propranolol 10 mg tablet 10 mg PO BID Qty: 60 0RF Continued alogliptin 25 mg tablet 25 mg PO QAM cholecalciferol (vitamin D3) 25 mcg (1,000 unit) capsule 25 mcg PO QAM levothyroxine 25 mcg tablet 25 mcg PO DAILY Qty: 90 2RF atorvastatin 80 mg tablet 80 mg PO QAM pantoprazole 40 mg tablet,delayed release (DR/EC) 40 mg PO AMHS ondansetron 4 mg tablet,disintegrating 4 mg PO Q6H PRN (Reason: Nausea) gabapentin 400 mg capsule 400 mg PO HS ferrous sulfate 325 mg (65 mg iron) tablet,delayed release (DR/EC) 325 mg PO QDD fluticasone propionate 50 mcg/actuation spray,suspension 1 spray intranasal QAM Rx Instructions: administer into each nostril thiamine HCl (vitamin B1) 100 mg tablet 200 mg PO QAM magnesium oxide 400 mg (241.3 mg magnesium) tablet 400 mg PO QAM meclizine 25 mg tablet 25 mg PO BID PRN (Reason: Dizziness) Changed venlafaxine 75 mg capsule,extended release 24hr 150 mg PO QAM Qty: 60 6RF Rx Instructions: 3 capsule dose Discontinued lidocaine [Lidoderm] 5 % adhesive patch,medicated 1 patch topical DAILY Rx Instructions: leave on most painful area for up to 12 hrs diclofenac sodium [Voltaren Arthritis Pain] 1 % gel 2 g topical QID PRN (Reason: Pain) Rx Instructions: wrist,hand or elbow pain amlodipine 5 mg tablet 5 mg PO QAM ascorbic acid (vitamin C) 250 mg tablet 250 mg PO QAM bupropion HCl [Wellbutrin SR] 150 mg tablet sustained-release 12 hr 150 mg PO QAM metformin 1,000 mg tablet 1,000 mg PO BIDM Discharge Orders: Discharge Order (Routine); Ordered 01/26/23 Ordered By: Solo Sterling/Other Patient Handouts: Tests for Liver Disease, Understanding Cirrhosis, ED Ascites, ED Encephalitis, Viral Admission Data Admit Date/Time: 01/21/23 15:59 Attending Provider: Solo Darnell Admit Provider: Duane Wilkes Primary Care Provider: Elliott Ng Other Providers: Duane Wilkes ; Ashwin Nava Other Interventions: Discharge Summary Assessment (RN) Last Done: 01/26/23 11:24 Coding Level of Care Code 51203 INP/OBS DISCH >30 MIN Diagnoses Lethargy R53.83 Hypothyroid E03.9 Cirrhosis K74.60 Esophageal varices I85.00 Intraductal papillary mucinous neoplasm of pancreas D49.0 Hypertension I10 Hypertension type: essential hypertension Depression F32.9 GERD (gastroesophageal reflux disease) K21.9 Diabetes mellitus, type 2 E11.9 Diabetes mellitus assisted insulin use: without assisted use Chronic kidney disease stage 3 subtype: stage 3a (GFR 45-59) Liver cirrhosis, alcoholic K70.30 Ascites presence: without ascites
[2023-01-26] MEDS ORDERED: PROPRANOLOL HCL 10 MG TAB PO SCH (21:00)
[2023-01-28 16:12] LABS: Codeine Urine NEGATIVE ng/mL (<50); Hydrocodone Urine 980 ng/mL (<50); Hydromor Urine 57 ng/mL (<50); MDA negative; MDEA negative; MDMA (Ecstasy) Urine, Confirm negative; Morphine Urine NEGATIVE ng/mL (<50); Norhydrocodone Conf Ur 1160 ng/mL (<50); Noroxycodone Urine NEGATIVE ng/mL (<50); Oxycodone Urine NEGATIVE ng/mL (<50); Oxymorph Urine NEGATIVE ng/mL (<50)
== END 2023-01-26 12:20 | disposition short-term general hospital (02) | DRG 371 ==
LOC: ED 10:58 → 2N 15:59 → SUATTDRO 15:59 → 2N 17:21

== ENCOUNTER 2023-03-30 13:55 | Inpatient (IN) ==
--- NOTE | 2023-03-30 14:07 | Emergency Department Note ---
Impression & Plan Acute dehydration, Anemia, Weakness ED Provider Note NAME: SABINA CLARK AGE: 82 SEX: M : 1940 ARRIVES VIA: Ambulance INFORMANT: Patient, ED PROVIDER(S): Brenden Magana MD CHIEF COMPLAINT: Weakness, confusion MEDICAL DECISION MAKING: Patient presents due to concern for weakness and associated confusion. IV was established blood work was obtained and the patient did receive IV fluids. Pneumonia urinalysis and CT of the head also obtained. Patient's blood work showed A normal white count with an anemia hemoglobin of 9.9 which is chronic and stable. INR 1.3. Hyponatremia 131 calcium of 8.3. TSH is normal. Chest x-ray is negative. Patient CT of the head is negative. Patient's blood work did show a normal white count chronic and stable anemia hemoglobin 9 with normal platelet count. The patient's INR is 1.3. Creatinine 1.2. Alk phos is elevated at 231. The patient's TSH is normal. Ammonia is not elevated. The patient's bio fire is negative. CT head negative. After further discussion with the patient's at bedside the patient is not able to go home and the patient was unable to be ambulatory today and is exceptionally weak. I did speak the on-call hospitalist Dr. Haddad and Dr. Osborn did admit the patient to the medicine service. Prior /Outside records reviewed: None Differential diagnosis: Infection, dehydration, metabolic abnormality, hypo/hyperglycemia, electrolyte disturbance, anemia, hypoxia, cardiac sources, intracerebral event, toxicologic, neurologic, as well as other pathologies. Diagnostics, as interpreted by me: ECG: Normal sinus rhythm, rate of 68, prolonged QTc, normal KS, left axis deviation. No ST elevations. T wave flattening inferiorly. Cardiac monitoring: An order was placed for continuous cardiac monitoring. The monitor shows a rate of 85 with sinus rhythm. Patient was placed on pulse oximetry Medical decision rules: None Imaging studies: See below I informally reviewed the patient's CT head which did not show any obvious ICH. HPI: Patient presents due to concern for weakness and some confusion. The patient does admit to both. Patient states he has not been eating or drinking as much. The patient does have a known history of liver disease. Patient denies any vomiting or diarrhea no dark stools no bright red blood per rectum. No recent falls or trauma. Patient was seen by home health today and referred here for further evaluation and treatment. The patient denies any dysuria or hematuria and the patient has no abdominal pain chest pain or shortness of breath. Patient states he has not been using any alcohol or tobacco. No recent falls per patient. PAST MEDICAL HISTORY: See Below PAST SURGICAL HISTORY: See Below SOCIAL HISTORY: See Below HOME MEDICATIONS: See Below ALLERGIES: See Below VITALS: See Below PHYSICAL EXAMINATION: GENERAL: NAD, pale in appearance, fatigable, non-toxic. EYE EXAM: Normal conjunctiva. PERRL, no anisocoria and EOM's grossly intact w/o pain. NECK: Supple, no nuchal rigidity, no adenopathy, non-tender. No signs of meningismus. FROM of the neck with good chin to chest and neck extension. No stridor. LUNGS: Clear to auscultation. Normal chest wall mechanics. HEART: NSR, no MRG. ABDOMEN: Abdomen soft, mild abdominal distention but without pain and soft, no obvious fluid wave, no masses, no rebound or guarding. BACK: No CVA TTP. SKIN: No rashes and no bruising. UPPER EXTREMITIES: Upper extremities are grossly normal. LOWER EXTREMITIES: Grossly normal, no edema. NEURO EXAM: A&O x3, cranial nerves II-XII grossly intact, normal speech, moves all 4 extremities. Follows basic commands and is a and able to answer questions appropriately Past Med/Surg History Medical History AAA (abdominal aortic aneurysm) 3 x 2.5 cm, to have f/u imaging in 2 yrs Abdominal ascites Acute GI bleeding Advanced care planning/counseling discussion Alcohol dependence pt quit drinking 10/2022 prior to quiting "drank 4 beers a day" Altered mental status Anemia chronic, baseline hgb 10-11 range per chart review, received 4 units PRBCs during 01/2023 hospitalization with GI bleed-see summary below in note. 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, alcoholic hx small esophageal varices (09/2020) under surveillance, no banding indicated on most recent EGD, follows with OR GI, stable Lumbar stenosis Neck pain with history of cervical spinal surgery Palliative care by specialist Pancreatic mass pancreatic pseudocyst Pancreatitis 2016 Portal hypertension Restless legs syndrome Sensorineural hearing loss (SNHL) of both ears Severe aortic stenosis 01/2023 echo, pt refusing cardio per OR PCP Splenomegaly Status post abdominal paracentesis Symptomatic anemia Thrombocytopenia hx cirrhosis, chronic mild thrombocytopenia Surgical History History of biopsy pancreatic mass biopsy on 07/01/2020 - benign History of colonoscopy last 04/2021 History of cystoscopy d/t incontinence History of esophagogastroduodenoscopy (EGD) last 11/04/22 @ [facility] 11/30/19: MAC sedation at [facility] History of laminectomy X3 History of prostatectomy History of right inguinal hernia repair 09/14/19 VILLEDA#5. History of tooth extraction Hx of cervical spine surgery (12/2019) C3-C6 laminectomy, C3-T1 PCF Hx of inguinal hernia surgery (09/14/19) Open Right Inguinal Hernia Repair with Mesh: 09/14/19: LMA#5 at [facility] Status post right knee replacement 11/12/2021 Grade 1 view, MAC 3, ETT 7.5 + PNB. Family History Sister Family history of diabetes mellitus Breast cancer Mother Colorectal cancer Stroke Hypertension Brother Prostate cancer Colorectal cancer Father Myocardial infarction Son Thyroid disease Mother Family history of diabetes mellitus Sister Family history of diabetes mellitus Sister Family history of diabetes mellitus Other Cancer No family history of adverse response to anesthesia No family history of allergies No family history of bleeding disorder Denies family history of Ovarian cancer Hearing loss Heart disease Asthma Social History Smoking Status: Never smoker Tobacco Type: Smokeless Tobacco (Dip or Chew) Second Hand Exposure: No; Do You Dip or Chew Tobacco: Yes; Hx Alcohol Use: Yes Alcohol type: beer Alcohol Intake Frequency: 4 or More x per/Week Alcohol Intake Frequency Comment: at night 4-5 beers a night Hx Substance Use: No Preferred Language: Croatian Communication Ability: Impaired Visual Impairment: No Limitations Hearing Ability: Use of Hearing Aid Hammer Repairer Required: No Beliefs That Will Affect Care: Congregation Congregation Beliefs: CHEONDOISM marital status: Current Living Situation: Spouse current occupational status: retired Feels Safe at Home: Yes Safety Concerns: Feels Safe At This Time Childhood Exposure to Second-Hand Smoke: No Diet: regular Diet Comment: regular caffeine: No during the past year weight has: remained stable Dental Care, Regularly: No Physical Activity Frequency: Daily Physical Activity Frequency Comment: limited by physical condition Seatbelt Use: always Sunscreen Use: No Assistive Devices: Cane and Walker Allergies Allergies Allergy/AdvReac Type Severity Reaction Status Date / Time etodolac AdvReac Mild n/v Verified 03/26/23 10:54 meloxicam AdvReac Mild n/v Verified 03/26/23 10:54 Home Meds Home Medications Medication Instructions Recorded Confirmed atorvastatin 80 mg tablet 80 mg PO QAM 06/13/19 03/30/23 cholecalciferol (vitamin D3) 25 25 mcg PO QAM 08/20/21 03/30/23 mcg (1,000 unit) capsule fluticasone propionate 50 1 spray intranasal HS PRN Allergy 01/21/23 03/30/23 mcg/actuation nasal Symptoms spray,suspension gabapentin 400 mg capsule 400 mg PO HS 01/21/23 03/30/23 ondansetron 4 mg disintegrating 4 mg PO Q6H PRN Nausea 01/21/23 03/30/23 tablet pantoprazole 40 mg tablet,delayed 40 mg PO AMHS 01/21/23 03/30/23 release melatonin 5 mg tablet 5 mg PO HS PRN Sleep 02/17/23 03/30/23 thiamine HCl (vitamin B1) 100 mg 100 mg PO QAM 02/17/23 03/30/23 tablet furosemide 20 mg tablet 20 mg PO QAM 02/25/23 03/30/23 levothyroxine 25 mcg tablet 25 mcg PO QAM 02/25/23 03/30/23 magnesium oxide 400 mg PO QAM 02/25/23 03/30/23 oxycodone-acetaminophen 5 mg-325 1 tab PO BID PRN Pain 02/25/23 03/30/23 mg tablet spironolactone 50 mg tablet 50 mg PO QAM 02/25/23 03/30/23 Previous Rx's Medication Instructions Recorded venlafaxine 75 mg capsule,extended 150 mg PO QAM #60 caps 02/16/23 release 24 hr sucralfate 1 gram tablet (Carafate) 1 g PO ACHS #120 tabs 02/18/23 lactulose 10 gram/15 mL oral 15 ml PO QID #237 mL 03/26/23 solution (Enulose) propranolol 20 mg tablet 20 mg PO BID #60 tabs 03/26/23 Results & Data (ED) Vital Signs Vital Signs - 24 hr 03/30/23 14:12 03/30/23 14:11 03/30/23 14:11 Temperature 36.5 C Temperature Source Oral Pulse Rate 70 70 Respiratory Rate 16 Blood Pressure 103/68 Blood Pressure Mean 79 Blood Pressure Position Sitting Pulse Oximetry 96 96 Oxygen Delivery Method Room Air Room Air Sepsis Recent Fever Within 48 Hours No Sepsis New/Unexplained Change in Mental Status No Sepsis Action Taken by Nursing No Action Required 03/30/23 14:50 Temperature Temperature Source Pulse Rate 70 Respiratory Rate 18 Blood Pressure Blood Pressure Mean Blood Pressure Position Pulse Oximetry 96 Oxygen Delivery Method Room Air Sepsis Recent Fever Within 48 Hours Sepsis New/Unexplained Change in Mental Status Sepsis Action Taken by Snf Medications Current Medication List: was personally reviewed by me Laboratory Data Attestation: I reviewed the patient's lab results. 03/30/23 14:13 03/30/23 14:13 Lab Results 03/30/23 03/30/23 03/30/23 Range/Units 14:13 14:13 14:13 WBC 5.55 (4.8-10.8) K/ul RBC 3.80 L (4.70-6.10) M/uL Hgb 9.9 L (14.0-18.0) g/dl Hct 30.5 L (42.0-52.0) % MCV 80.3 (80.0-100.0) fL MCH 26.1 (25.0-34.0) pg MCHC 32.5 (32.0-36.0) g/dL RDW Std Deviation 51.2 H (36.4-46.3) fL RDW Coeff of Elliot 17.5 H (11.5-14.5) % Plt Count 142 (130-400) K/uL MPV 9.9 (9.4-12.4) fL Immature Gran % (Auto) 0.4 % Neut % (Auto) 63.0 % Lymph % (Auto) 25.0 % Lee % (Auto) 10.3 % Eos % (Auto) 0.9 % Baso % (Auto) 0.4 % Neut # (Auto) 3.50 (1.40-6.50) K/uL Lymph # (Auto) 1.39 (1.2-3.4) K/uL Lee # (Auto) 0.57 (0.11-0.59) K/uL Eos # (Auto) 0.05 (0-0.50) K/uL Baso # (Auto) 0.02 (0-0.2) K/uL Immature Gran # (Auto) 0.02 (0.01-0.20) K/uL PT 14.2 H (9.0-12.0) Seconds INR 1.3 H (0.9-1.1) APTT 37.7 H (21.0-31.0) Seconds PTT Ratio 1.3 Sodium 131 L (136-145) mmol/L Potassium 4.3 (3.5-5.1) mmol/L Chloride 100 (98-107) mmol/L Carbon Dioxide 25 (21-32) mmol/L Anion Gap 6 (3-11) BUN 20 (6-23) mg/dl Creatinine 1.24 (0.6-1.4) mg/dl Est Cr Clr Drug Dosing 46.0 ml/min Est GFR ( Amer) 63.2 ml/min Est GFR (Non-Af Amer) 54.6 ml/min BUN/Creatinine Ratio 16.1 (10-20) Glucose 144 H (70-99(Fasting)) mg/dl Calcium 8.3 L (8.6-10.3) mg/dl Magnesium 1.7 (1.7-2.4) mg/dl Total Bilirubin 0.8 (0.2-1.0) mg/dl AST 19 (13-39) U/L ALT 11 (7-52) U/L Alkaline Phosphatase 231 H (34-104) U/L Ammonia Total Protein 6.3 (6.0-8.3) gm/dl Albumin 1.9 L (3.4-5.0) gm/dl Globulin 4.4 H (2.5-4.0) gm/dl Albumin/Globulin Ratio 0.4 L (0.9-2) TSH (0.300-4.500) uIu/ml Urine Color Urine Appearance (Clear) Urine pH (4.5-7.5) Ur Specific Vanleer (1.000-1.030) Urine Protein (Negative) Urine Glucose (UA) (Negative) Urine Ketones (Negative) Urine Blood (Negative) Urine Nitrite (Negative) Urine Bilirubin (Negative) Urine Urobilinogen (Negative) Ur Leukocyte Esterase (Negative) Urine WBC (Auto) (0-5) /hpf Urine RBC (Auto) (0-4) /hpf U Hyaline Cast (Auto) (0-5) /lpf U Epithel Cells (Auto) (0-5) /lpf Urine Bacteria (Auto) (Negative) Adenovirus (PCR) (NotDetected) B. pertussis DNA (PCR) (NotDetected) B.parapertussis DNA PCR (NotDetected) C. pneumoniae DNA (PCR) (NotDetected) Coronavirus OC43 (PCR) (NotDetected) Coronavirus HKU1 (PCR) (NotDetected) Coronavirus 229E (PCR) (NotDetected) SARS-CoV-2 (PCR) (NotDetected) Coronavirus NL63 (PCR) (NotDetected) Human Metapneumovir PCR (NotDetected) Influenza Type A (PCR) (NotDetected) Influenza Type B (PCR) (NotDetected) M. pneumoniae (PCR) (NotDetected) Parainfluenza 1 (PCR) (NotDetected) Parainfluenza 2 (PCR) (NotDetected) Parainfluenza 3 (PCR) (NotDetected) Parainfluenza 4 (PCR) (NotDetected) RSV (PCR) (NotDetected) Entero/Rhino (PCR) (NotDetected) 03/30/23 03/30/23 03/30/23 Range/Units 14:13 14:25 14:28 WBC (4.8-10.8) K/ul RBC (4.70-6.10) M/uL Hgb (14.0-18.0) g/dl Hct (42.0-52.0) % MCV (80.0-100.0) fL MCH (25.0-34.0) pg MCHC (32.0-36.0) g/dL RDW Std Deviation (36.4-46.3) fL RDW Coeff of Elliot (11.5-14.5) % Plt Count (130-400) K/uL MPV (9.4-12.4) fL Immature Gran % (Auto) % Neut % (Auto) % Lymph % (Auto) % Lee % (Auto) % Eos % (Auto) % Baso % (Auto) % Neut # (Auto) (1.40-6.50) K/uL Lymph # (Auto) (1.2-3.4) K/uL Lee # (Auto) (0.11-0.59) K/uL Eos # (Auto) (0-0.50) K/uL Baso # (Auto) (0-0.2) K/uL Immature Gran # (Auto) (0.01-0.20) K/uL PT (9.0-12.0) Seconds INR (0.9-1.1) APTT (21.0-31.0) Seconds PTT Ratio Sodium (136-145) mmol/L Potassium (3.5-5.1) mmol/L Chloride (98-107) mmol/L Carbon Dioxide (21-32) mmol/L Anion Gap (3-11) BUN (6-23) mg/dl Creatinine (0.6-1.4) mg/dl Est Cr Clr Drug Dosing ml/min Est GFR ( Amer) ml/min Est GFR (Non-Af Amer) ml/min BUN/Creatinine Ratio (10-20) Glucose (70-99(Fasting)) mg/dl Calcium (8.6-10.3) mg/dl Magnesium (1.7-2.4) mg/dl Total Bilirubin (0.2-1.0) mg/dl AST (13-39) U/L ALT (7-52) U/L Alkaline Phosphatase (34-104) U/L Ammonia Cancelled Total Protein (6.0-8.3) gm/dl Albumin (3.4-5.0) gm/dl Globulin (2.5-4.0) gm/dl Albumin/Globulin Ratio (0.9-2) TSH 3.558 (0.300-4.500) uIu/ml Urine Color Urine Appearance (Clear) Urine pH (4.5-7.5) Ur Specific Vanleer (1.000-1.030) Urine Protein (Negative) Urine Glucose (UA) (Negative) Urine Ketones (Negative) Urine Blood (Negative) Urine Nitrite (Negative) Urine Bilirubin (Negative) Urine Urobilinogen (Negative) Ur Leukocyte Esterase (Negative) Urine WBC (Auto) (0-5) /hpf Urine RBC (Auto) (0-4) /hpf U Hyaline Cast (Auto) (0-5) /lpf U Epithel Cells (Auto) (0-5) /lpf Urine Bacteria (Auto) (Negative) Adenovirus (PCR) Not Detected (NotDetected) B. pertussis DNA (PCR) Not Detected (NotDetected) B.parapertussis DNA PCR Not Detected (NotDetected) C. pneumoniae DNA (PCR) Not Detected (NotDetected) Coronavirus OC43 (PCR) Not Detected (NotDetected) Coronavirus HKU1 (PCR) Not Detected (NotDetected) Coronavirus 229E (PCR) Not Detected (NotDetected) SARS-CoV-2 (PCR) Not Detected (NotDetected) Coronavirus NL63 (PCR) Not Detected (NotDetected) Human Metapneumovir PCR Not Detected (NotDetected) Influenza Type A (PCR) Not Detected (NotDetected) Influenza Type B (PCR) Not Detected (NotDetected) M. pneumoniae (PCR) Not Detected (NotDetected) Parainfluenza 1 (PCR) Not Detected (NotDetected) Parainfluenza 2 (PCR) Not Detected (NotDetected) Parainfluenza 3 (PCR) Not Detected (NotDetected) Parainfluenza 4 (PCR) Not Detected (NotDetected) RSV (PCR) Not Detected (NotDetected) Entero/Rhino (PCR) Not Detected (NotDetected) 03/30/23 03/30/23 Range/Units 15:34 17:30 WBC (4.8-10.8) K/ul RBC (4.70-6.10) M/uL Hgb (14.0-18.0) g/dl Hct (42.0-52.0) % MCV (80.0-100.0) fL MCH (25.0-34.0) pg MCHC (32.0-36.0) g/dL RDW Std Deviation (36.4-46.3) fL RDW Coeff of Elliot (11.5-14.5) % Plt Count (130-400) K/uL MPV (9.4-12.4) fL Immature Gran % (Auto) % Neut % (Auto) % Lymph % (Auto) % Lee % (Auto) % Eos % (Auto) % Baso % (Auto) % Neut # (Auto) (1.40-6.50) K/uL Lymph # (Auto) (1.2-3.4) K/uL Lee # (Auto) (0.11-0.59) K/uL Eos # (Auto) (0-0.50) K/uL Baso # (Auto) (0-0.2) K/uL Immature Gran # (Auto) (0.01-0.20) K/uL PT (9.0-12.0) Seconds INR (0.9-1.1) APTT (21.0-31.0) Seconds PTT Ratio Sodium (136-145) mmol/L Potassium (3.5-5.1) mmol/L Chloride (98-107) mmol/L Carbon Dioxide (21-32) mmol/L Anion Gap (3-11) BUN (6-23) mg/dl Creatinine (0.6-1.4) mg/dl Est Cr Clr Drug Dosing ml/min Est GFR ( Amer) ml/min Est GFR (Non-Af Amer) ml/min BUN/Creatinine Ratio (10-20) Glucose (70-99(Fasting)) mg/dl Calcium (8.6-10.3) mg/dl Magnesium (1.7-2.4) mg/dl Total Bilirubin (0.2-1.0) mg/dl AST (13-39) U/L ALT (7-52) U/L Alkaline Phosphatase (34-104) U/L Ammonia 28.0 Total Protein (6.0-8.3) gm/dl Albumin (3.4-5.0) gm/dl Globulin (2.5-4.0) gm/dl Albumin/Globulin Ratio (0.9-2) TSH (0.300-4.500) uIu/ml Urine Color Yellow Urine Appearance Clear (Clear) Urine pH 5.5 (4.5-7.5) Ur Specific Vanleer 1.014 (1.000-1.030) Urine Protein Negative (Negative) Urine Glucose (UA) Negative (Negative) Urine Ketones Negative (Negative) Urine Blood Negative (Negative) Urine Nitrite Negative (Negative) Urine Bilirubin Negative (Negative) Urine Urobilinogen Negative (Negative) Ur Leukocyte Esterase 1+ H (Negative) Urine WBC (Auto) 1-5 (0-5) /hpf Urine RBC (Auto) 0-4 (0-4) /hpf U Hyaline Cast (Auto) 1-5 (0-5) /lpf U Epithel Cells (Auto) 20-30 H (0-5) /lpf Urine Bacteria (Auto) Negative (Negative) Adenovirus (PCR) (NotDetected) B. pertussis DNA (PCR) (NotDetected) B.parapertussis DNA PCR (NotDetected) C. pneumoniae DNA (PCR) (NotDetected) Coronavirus OC43 (PCR) (NotDetected) Coronavirus HKU1 (PCR) (NotDetected) Coronavirus 229E (PCR) (NotDetected) SARS-CoV-2 (PCR) (NotDetected) Coronavirus NL63 (PCR) (NotDetected) Human Metapneumovir PCR (NotDetected) Influenza Type A (PCR) (NotDetected) Influenza Type B (PCR) (NotDetected) M. pneumoniae (PCR) (NotDetected) Parainfluenza 1 (PCR) (NotDetected) Parainfluenza 2 (PCR) (NotDetected) Parainfluenza 3 (PCR) (NotDetected) Parainfluenza 4 (PCR) (NotDetected) RSV (PCR) (NotDetected) Entero/Rhino (PCR) (NotDetected) Administered Medications Heparin Sodium (Porcine) (Heparin Sod 5,000 Unit/0.5 Ml Vial) 5,000 units SQ Q12 AMNA Stop: 04/29/23 21:11 Last Admin: 04/02/23 08:48 Dose: 5,000 units Documented By: Admin: 04/01/23 20:11 Dose: 5,000 units Documented By: [facility] Admin: 04/01/23 09:34 Dose: 5,000 units Documented By: [facility] Admin: 03/31/23 20:05 Dose: 5,000 units Documented By: Admin: 03/31/23 08:51 Dose: 5,000 units Documented By: Admin: 03/30/23 22:27 Dose: 5,000 units Documented By: CRISTINA Potassium Chloride/Sodium Chloride (Normal Saline W/20 Meq Kcl) 20 meq in 1,000 mls @ 100 mls/hr IV .Q10H AMNA; Protocol Stop: 04/29/23 21:11 Last Admin: 04/02/23 09:13 Dose: 100 mls/hr Documented By: Infusion: 04/02/23 09:13 Dose: 100 mls/hr Documented By: Admin: 04/01/23 23:39 Dose: 100 mls/hr Documented By: [facility] Infusion: 04/01/23 23:39 Dose: 0 mls/hr Documented By: [facility] Admin: 04/01/23 14:32 Dose: 100 mls/hr Documented By: Infusion: 04/01/23 14:32 Dose: 100 mls/hr Documented By: Admin: 04/01/23 05:36 Dose: 100 mls/hr Documented By: Infusion: 04/01/23 04:48 Dose: 100 mls/hr Documented By: Admin: 03/31/23 18:48 Dose: 100 mls/hr Documented By: Infusion: 03/31/23 18:48 Dose: 100 mls/hr Documented By: Admin: 03/31/23 08:48 Dose: 100 mls/hr Documented By: Infusion: 03/31/23 08:27 Dose: 100 mls/hr Documented By: Admin: 03/30/23 22:27 Dose: 100 mls/hr Documented By: CRISTINA Folic Acid 1 mg/ Syringe 10 mls @ 5 mls/min IV QAM AMNA Stop: 04/29/23 21:11 Last Admin: 04/02/23 08:48 Dose: 5 mls/min Documented By: ROSA ISELA Admin: 04/01/23 09:34 Dose: 5 mls/min Documented By: [facility] Admin: 03/31/23 08:49 Dose: 5 mls/min Documented By: Admin: 03/30/23 22:26 Dose: 5 mls/min Documented By: CRISTINA Famotidine 20 mg/ Syringe 5 mls @ 2.5 mls/min IV Q12 AMNA Stop: 04/29/23 21:11 Last Admin: 04/02/23 08:51 Dose: 2.5 mls/min Documented By: ROSA ISELA Admin: 04/01/23 20:11 Dose: 2.5 mls/min Documented By: [facility] Admin: 04/01/23 09:39 Dose: 2.5 mls/min Documented By: Admin: 03/31/23 20:14 Dose: 2.5 mls/min Documented By: Admin: 03/31/23 08:49 Dose: 2.5 mls/min Documented By: Admin: 03/30/23 22:26 Dose: 2.5 mls/min Documented By: CRISTINA Thiamine HCl 100 mg/ Syringe 10 mls @ 2 mls/min IV QAM AMNA Stop: 04/29/23 21:11 Last Admin: 04/02/23 08:48 Dose: 2 mls/min Documented By: ROSA ISELA Admin: 04/01/23 09:34 Dose: 2 mls/min Documented By: [facility] Admin: 03/31/23 08:49 Dose: 2 mls/min Documented By: Admin: 03/30/23 22:27 Dose: 2 mls/min Documented By: CRISTINA Discontinued Medications Sodium Chloride (Nss 1000ml) 1,000 mls @ 999 mls/hr IV .Q1H1M AMNA Stop: 03/30/23 15:15 Last Infusion: 03/30/23 15:52 Dose: 0 mls/hr Documented By: Admin: 03/30/23 14:31 Dose: 999 mls/hr Documented By: QGV Magnesium Sulfate/Dextrose (Magnesium Sulfate / D5w) 1 gm in 100 mls @ 50 mls/hr IV ONE ONE Stop: 03/31/23 10:42 Last Infusion: 03/31/23 11:41 Dose: 0 mls/hr Documented By: Admin: 03/31/23 09:28 Dose: 50 mls/hr Documented By: JONE Imaging Data Radiologist's Impression: Head CT 03/30/23 14:15 CT OF THE HEAD WITHOUT CONTRAST CLINICAL HISTORY: Confusion. COMPARISON STUDY: MRI of the brain May 29, 2021. Head CT January 21, 2023. CT DOSE: 625.80 mGy.cm TECHNIQUE: Helical axial images of the head were obtained without IV contrast. Automated exposure control was utilized for the study. A dose lowering technique was utilized adhering to the principles of ALARA. FINDINGS: White matter hypodensities are similar to prior exam and favor small vessel disease. No acute intracranial hemorrhage, midline shift or mass effect is present. The ventricular system is unremarkable. The basal cisterns are patent. No extra-axial collections are present. There are no findings to suggest acute dural sinus thrombosis or acute territorial infarct. No significant calvarial abnormalities are present. Visualized portions of the sinuses and mastoid air cells are clear. IMPRESSION: No acute intracranial findings. No change in appearance of the brain. ACT 112: Negative or not required by law. Electronically signed by: Maximiliano Orozco M.D. 03/30/2023 3:[address] 03/30/23 14:15 CT OF THE HEAD WITHOUT CONTRAST CLINICAL HISTORY: Confusion. COMPARISON STUDY: MRI of the brain May 29, 2021. Head CT January 21, 2023. CT DOSE: 625.80 mGy.cm TECHNIQUE: Helical axial images of the head were obtained without IV contrast. Automated exposure control was utilized for the study. A dose lowering technique was utilized adhering to the principles of ALARA. FINDINGS: White matter hypodensities are similar to prior exam and favor small vessel disease. No acute intracranial hemorrhage, midline shift or mass effect is present. The ventricular system is unremarkable. The basal cisterns are patent. No extra-axial collections are present. There are no findings to suggest acute dural sinus thrombosis or acute territorial infarct. No significant calvarial abnormalities are present. Visualized portions of the sinuses and mastoid air cells are clear. IMPRESSION: No acute intracranial findings. No change in appearance of the brain. ACT 112: Negative or not required by law. Electronically signed by: Maximiliano Orozco M.D. 03/30/2023 3:07 PM Chest X-Ray 03/30/23 14:16 SINGLE VIEW CHEST CLINICAL HISTORY: Generalized weakness. FINDINGS: An AP, portable, upright chest radiograph is compared to study dated 01/21/2023 and correlated with chest CT dated 04/02/2021. The cardiomediastinal silhouette is top normal for projection noting atherosclerotic calcification of the thoracic aorta. The pulmonary vasculature is noncongested. Chronic interstitial thickening is similar to previous. There is chronic elevation of the right hemidiaphragm with bibasilar scarring/atelectasis. No airspace consolidation or large pleural effusion is identified. No pneumothorax is seen. The skeletal structures are osteopenic. The bony thorax is grossly intact. Fusion hardware is seen at the cervicothoracic junction. Arthritic change is seen in the shoulders and spine. There are surgical clips in the upper abdomen. IMPRESSION: No acute cardiopulmonary abnormality is identified. ACT 112: Negative or not required by law. Electronically signed by: Tony Morocho M.D. 03/30/2023 3:43 PM Discharge Plan Visit Data Chief Complaint: Weakness Stated Complaint: WEAKNESS, ED Provider: Brenden Magana Discharge Problem: Acute dehydration, Anemia, Weakness Patient Disposition: Admitted As Inpatient Condition: Fair Discharge Instructions Interventions: ED Discharge Assessment Last Done: 03/30/23 21:00
[2023-03-30] MEDS ORDERED: SODIUM CHLORIDE 0.9% 1000ML 1,000 ML IV SCH (14:15)
[2023-03-30 14:40] LABS: Basophils # (auto) 0.02 K/uL (0-0.2); Basophils % (auto) 0.4 %; Eosinophils # (auto) 0.05 K/uL (0-0.50); Eosinophils % (auto) 0.9 %; Hematocrit (blood only) 30.5 % (42.0-52.0); Hemoglobin 9.9 g/dl (14.0-18.0); Immature Granulocytes # (auto) 0.02 K/uL (0.01-0.20); Immature Granulocytes % (auto) 0.4 %; Lymphocytes # (auto) 1.39 K/uL (1.2-3.4); Mean Corpuscular Hemoglobin 26.1 pg (25.0-34.0); Mean Corpuscular Hgb Conc 32.5 g/dL (32.0-36.0); Mean Corpuscular Volume 80.3 fL (80.0-100.0); Mean Platelet Volume 9.9 fL (9.4-12.4); Monocytes # (auto) 0.57 K/uL (0.11-0.59); Monocytes % (auto) 10.3 %; Platelet Count 142 K/uL (130-400); RDW Coefficient of Variation 17.5 % (11.5-14.5); RDW Standard Deviation 51.2 fL (36.4-46.3); White Blood Count 5.55 K/ul (4.8-10.8)
[2023-03-30 14:57] LABS: Albumin Globulin Ratio 0.4 (0.9-2); Albumin Level 1.9 gm/dl (3.4-5.0); BUN Creatinine Ratio 16.1 (10-20); Bilirubin,Total 0.8 mg/dl (0.2-1.0); Calcium 8.3 mg/dl (8.6-10.3); Est GFR (African American) 63.2 ml/min; Est GFR (Non-African American) 54.6 ml/min; Globulin 4.4 gm/dl (2.5-4.0); Magnesium 1.7 mg/dl (1.7-2.4); Potassium 4.3 mmol/L (3.5-5.1); Total Protein 6.3 gm/dl (6.0-8.3)
--- NOTE | 2023-03-30 15:09 | CT Scan Report ---
CT OF THE HEAD WITHOUT CONTRAST CLINICAL HISTORY: Confusion. COMPARISON STUDY: MRI of the brain May 29, 2021. Head CT January 21, 2023. CT DOSE: 625.80 mGy.cm TECHNIQUE: Helical axial images of the head were obtained without IV contrast. Automated exposure con trol was utilized for the study. A dose lowering technique was utilized adhering to the principles o f ALARA. FINDINGS: White matter hypodensities are similar to prior exam and favor small vessel disease. No acu te intracranial hemorrhage, midline shift or mass effect is present. The ventricular system is unrema rkable. The basal cisterns are patent. No extra-axial collections are present. There are no findings to suggest acute dural sinus thrombosis or acute territorial infarct. No significant calvarial abnorm alities are present. Visualized portions of the sinuses and mastoid air cells are clear. IMPRESSION: No acute intracranial findings. No change in appearance of the brain. ACT 112: Negative or not required by law. Electronically signed by: Maximiliano Orozco M.D. 03/30/2023 3:07 PM
[2023-03-30 15:25] LABS: INR 1.3 (0.9-1.1); Partial Thromboplastin Ratio 1.3; Partial Thromboplastin Time 37.7 Seconds (21.0-31.0); Prothrombin Time 14.2 Seconds (9.0-12.0)
--- NOTE | 2023-03-30 15:45 | XRay Report ---
SINGLE VIEW CHEST CLINICAL HISTORY: Generalized weakness. FINDINGS: An AP, portable, upright chest radiograph is compared to study dated 01/21/2023 and correlat ed with chest CT dated 04/02/2021. The cardiomediastinal silhouette is top normal for projection notin g atherosclerotic calcification of the thoracic aorta. The pulmonary vasculature is noncongested. Chr onic interstitial thickening is similar to previous. There is chronic elevation of the right hemidiap hragm with bibasilar scarring/atelectasis. No airspace consolidation or large pleural effusion is elkin ntified. No pneumothorax is seen. The skeletal structures are osteopenic. The bony thorax is grossly intact. Fusion hardware is seen at the cervicothoracic junction. Arthritic change is seen in the shou lders and spine. There are surgical clips in the upper abdomen. IMPRESSION: No acute cardiopulmonary abnormality is identified. ACT 112: Negative or not required by law. Electronically signed by: Tony Morocho M.D. 03/30/2023 3:43 PM
[2023-03-30 15:50] LABS: Adenovirus PCR Not Detected (NotDetected); Bordetella parapertussis PCR Not Detected (NotDetected); Bordetella pertussis PCR Not Detected (NotDetected); Chlamydia pneumoniae PCR Not Detected (NotDetected); Coronavirus 229E PCR Not Detected (NotDetected); Coronavirus CoV-2 (COVID19)PCR Not Detected (NotDetected); Coronavirus HKU1 PCR Not Detected (NotDetected); Coronavirus NL63 PCR Not Detected (NotDetected); Coronavirus OC43PCR Not Detected (NotDetected); Human Metapneumovirus PCR Not Detected (NotDetected); Influenza A PCR Not Detected (NotDetected); Influenza B PCR Not Detected (NotDetected); Mycoplasma pneumoniae PCR Not Detected (NotDetected); Parainfluenza Virus 1 PCR Not Detected (NotDetected); Parainfluenza Virus 2 PCR Not Detected (NotDetected); Parainfluenza Virus 3 PCR Not Detected (NotDetected); Parainfluenza Virus 4 PCR Not Detected (NotDetected); Respiratory Syncytial VirusPCR Not Detected (NotDetected); Rhinovirus/Enterovirus PCR Not Detected (NotDetected)
--- NOTE | 2023-03-30 16:16 | Electrocardiogram Report ---
Test Reason : Blood Pressure : / mmHG Vent. Rate : 068 BPM Atrial Rate : 068 BPM P-R Int : 170 ms QRS Dur : 084 ms QT Int : 444 ms P-R-T Axes : -20 -27 -15 degrees QTc Int : 472 ms Sinus rhythm with Premature supraventricular complexes Otherwise normal ECG When compared with ECG of 21-JAN-2023 11:22, No significant change was found Confirmed by Bird De La Cruz ([id number]) on 03/30/2023 4:15:59 PM Referred By: Confirmed By:Bird De La Cruz
[2023-03-30 17:54] LABS: Appearance Urine Clear (Clear); Bacteria Urine Automated Negative (Negative); Bilirubin Urine Negative (Negative); Blood Urine Negative (Negative); Color Urine Yellow; Epithelial Cell Urine Auto 20-30 /lpf (0-5); Glucose Urine UA Negative (Negative); Ketones Urine Negative (Negative); Leukocyte Esterase Urine 1+ (Negative); Nitrite Urine Negative (Negative); Protein Urine Negative (Negative); RBC Urine Automated 0-4 /hpf (0-4); Specific Gravity Urine 1.014 (1.000-1.030); Urobilinogen Urine Negative (Negative); pH Urine 5.5 (4.5-7.5)
--- NOTE | 2023-03-30 19:56 | History & Physical Report ---
Date of Service March 30, 2023 Assessment & Plan (1) Aortic valve stenosis: (2) Generalized weakness: (3) Weight loss of more than 10% body weight: (4) Iron deficiency anemia: (5) Vestibular schwannoma: (6) Cirrhosis: (7) Hypothyroid: (8) Alcohol dependence: (9) Hypertension: (10) Depression: (11) Diabetes mellitus, type 2: (12) GERD (gastroesophageal reflux disease): (13) Hypercholesterolemia: (14) Restless legs syndrome: Plan Progressive generalized weakness, weight loss and confusion/failure to thrive- Patient with severe weight loss due to decreased oral intake causing generalized weakness and associated confusion We will place on IV fluids and follow response CT head without contrast negative Viral PCR panel negative N.p.o. overnight, avoid oral medications due to concerns regarding possible aspiration with swallowing, and reassess after rehydrated Change thiamine 100 mg IV daily Change folic acid 1 mg IV daily NSS + KCl 20 mEq at 100 mils per hour Famotidine 20 mg IV every 12 hours May need to consider discussion with family regarding possible palliative care consult Cirrhosis Add ammonia level to labs History of Present Illness Chief Complaint: The patient presents to the emergency department due to worsening weakness, weight loss and confusion. Primary Care Provider: IRISH Viveros The patient is an 82-year-old male with a past medical history including aortic stenosis, lumbar spine stenosis, iron deficiency anemia, vestibular schwannoma, cirrhosis, lethargy, SNHL bilaterally, intraductal papillary mucinous neoplasm of the pancreas, hypertension, depression, esophageal varices, hypercholesterolemia and restless leg syndrome. He has had worsening generalized weakness, weight loss and confusion over the past months. His oral intake has dropped off considerably. Allergies Allergy/AdvReac Type Severity Reaction Status Date / Time etodolac AdvReac Mild n/v Verified 03/26/23 10:54 meloxicam AdvReac Mild n/v Verified 03/26/23 10:54 Home Medications Medication Instructions Recorded Confirmed Type atorvastatin 80 mg tablet 80 mg PO QAM 06/13/19 03/30/23 History cholecalciferol (vitamin D3) 25 25 mcg PO QAM 08/20/21 03/30/23 History mcg (1,000 unit) capsule fluticasone propionate 50 1 spray intranasal HS PRN Allergy 01/21/23 03/30/23 History mcg/actuation nasal Symptoms spray,suspension gabapentin 400 mg capsule 400 mg PO HS 01/21/23 03/30/23 History ondansetron 4 mg disintegrating 4 mg PO Q6H PRN Nausea 01/21/23 03/30/23 History tablet pantoprazole 40 mg tablet,delayed 40 mg PO AMHS 01/21/23 03/30/23 History release venlafaxine 75 mg capsule,extended 150 mg PO QAM #60 caps 02/16/23 03/30/23 Rx release 24 hr melatonin 5 mg tablet 5 mg PO HS PRN Sleep 02/17/23 03/30/23 History thiamine HCl (vitamin B1) 100 mg 100 mg PO QAM 02/17/23 03/30/23 History tablet sucralfate 1 gram tablet (Carafate) 1 g PO ACHS #120 tabs 02/18/23 03/30/23 Rx furosemide 20 mg tablet 20 mg PO QAM 02/25/23 03/30/23 History levothyroxine 25 mcg tablet 25 mcg PO QAM 02/25/23 03/30/23 History magnesium oxide 400 mg PO QAM 02/25/23 03/30/23 History oxycodone-acetaminophen 5 mg-325 1 tab PO BID PRN Pain 02/25/23 03/30/23 History mg tablet spironolactone 50 mg tablet 50 mg PO QAM 02/25/23 03/30/23 History lactulose 10 gram/15 mL oral 15 ml PO QID #237 mL 03/26/23 03/30/23 Rx solution (Enulose) propranolol 20 mg tablet 20 mg PO BID #60 tabs 03/26/23 03/30/23 Rx Past Med/Surg History Medical History AAA (abdominal aortic aneurysm) 3 x 2.5 cm, to have f/u imaging in 2 yrs Abdominal ascites Acute GI bleeding Alcohol dependence pt quit drinking 10/2022 prior to quiting "drank 4 beers a day" Anemia chronic, baseline hgb 10-11 range per chart review, received 4 units PRBCs during 01/2023 hospitalization with GI bleed-see summary below in note. 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, alcoholic hx small esophageal varices (09/2020) under surveillance, no banding indicated on most recent EGD, follows with [facility], stable Lumbar stenosis Neck pain with history of cervical spinal surgery Pancreatic mass pancreatic pseudocyst Pancreatitis 2016 Portal hypertension Restless legs syndrome Sensorineural hearing loss (SNHL) of both ears Severe aortic stenosis 01/2023 echo, pt refusing cardio per ID PCP Splenomegaly Status post abdominal paracentesis Symptomatic anemia Thrombocytopenia hx cirrhosis, chronic mild thrombocytopenia Surgical History History of biopsy pancreatic mass biopsy on 07/01/2020 - benign History of colonoscopy last 04/2021 History of cystoscopy d/t incontinence History of esophagogastroduodenoscopy (EGD) last 11/04/22 @ [facility] 11/30/19: MAC sedation at [facility] History of laminectomy X3 History of prostatectomy History of right inguinal hernia repair 09/14/19 [facility]#5. History of tooth extraction Hx of cervical spine surgery (12/2019) C3-C6 laminectomy, C3-T1 PCF Hx of inguinal hernia surgery (09/14/19) Open Right Inguinal Hernia Repair with Mesh: 09/14/19: LMA#5 at [facility] Status post right knee replacement 11/12/2021 Grade 1 view, MAC 3, ETT 7.5 + PNB. Family History Sister Family history of diabetes mellitus Breast cancer Mother Colorectal cancer Stroke Hypertension Brother Prostate cancer Colorectal cancer Father Myocardial infarction Son Thyroid disease Mother Family history of diabetes mellitus Sister Family history of diabetes mellitus Sister Family history of diabetes mellitus Other Cancer No family history of adverse response to anesthesia No family history of allergies No family history of bleeding disorder Denies family history of Ovarian cancer Hearing loss Heart disease Asthma Social History Smoking Status: Never smoker Tobacco Type: Smokeless Tobacco (Dip or Chew) Second Hand Exposure: No; Do You Dip or Chew Tobacco: Yes; Hx Alcohol Use: Yes Alcohol type: beer Alcohol Intake Frequency: 4 or More x per/Week Alcohol Intake Frequency Comment: at night 4-5 beers a night Hx Substance Use: No Preferred Language: Montserratian Communication Ability: Effective Visual Impairment: No Limitations Hearing Ability: Use of Hearing Aid Ticket Taker Required: No Beliefs That Will Affect Care: Hinduism Hinduism Beliefs: RELIGIOUS marital status: Current Living Situation: Spouse current occupational status: retired Feels Safe at Home: Yes Safety Concerns: Feels Safe At This Time Childhood Exposure to Second-Hand Smoke: No Diet: regular Diet Comment: regular caffeine: No during the past year weight has: remained stable Dental Care, Regularly: No Physical Activity Frequency: Daily Physical Activity Frequency Comment: limited by physical condition Seatbelt Use: always Sunscreen Use: No Assistive Devices: Walker and Wheelchair Review of Systems Review of Systems: The patient is not able to contribute significantly to his HPI or ROS, but offers no specific complaints. Physical Exam Physical Exam: The patient is awake, and somewhat lethargic, appears emaciated, normocephalic and atraumatic, lying in bed and in no acute distress. HEENT--PERRL, EOMI, mucous membranes and oropharynx dry. Neck--supple. No JVD. No bruits. Thyroid normal, trachea midline, no adenopathy. Heart--normal S1 and S2. No murmurs, rubs or gallops. Lungs--clear bilaterally, no respiratory distress, no accessory muscle use. Abdomen--normal bowel sounds and soft. Nontender. Nondistended, no hernias or masses, no organomegaly. Extremities--no cyanosis or clubbing. No edema. Dermatologic--normal skin turgor, normal color, no abnormal lymph nodes, no rash. Neurologic--cranial nerves II through XII grossly intact. Rheumatologic--limited exam due to generalized weakness Psychiatric--normal affect. Results & Data Results & Data Vital Signs (Past 12 Hours) Vital Signs Temp Pulse Resp BP Pulse Ox O2 Del Method 03/30/23 19:00 68 18 90/64 L 96 03/30/23 17:28 60 17 125/84 96 Room Air 03/30/23 18:11 68 03/30/23 15:22 65 16 114/72 97 Room Air 03/30/23 14:50 70 18 96 Room Air 03/30/23 14:11 96 Room Air 03/30/23 14:11 36.5 C 70 16 103/68 96 Room Air 03/30/23 14:12 70 Laboratory Results Laboratory Results WBC 5.55 K/ul (4.8-10.8) 03/30/23 14:13 RBC 3.80 M/uL (4.70-6.10) L 03/30/23 14:13 Hgb 9.9 g/dl (14.0-18.0) L 03/30/23 14:13 Hct 30.5 % (42.0-52.0) L 03/30/23 14:13 MCV 80.3 fL (80.0-100.0) 03/30/23 14:13 MCH 26.1 pg (25.0-34.0) 03/30/23 14:13 MCHC 32.5 g/dL (32.0-36.0) 03/30/23 14:13 RDW Std Deviation 51.2 fL (36.4-46.3) H 03/30/23 14:13 RDW Coeff of Elliot 17.5 % (11.5-14.5) H 03/30/23 14:13 Plt Count 142 K/uL (130-400) 03/30/23 14:13 MPV 9.9 fL (9.4-12.4) 03/30/23 14:13 Immature Gran % (Auto) 0.4 % 03/30/23 14:13 Neut % (Auto) 63.0 % 03/30/23 14:13 Lymph % (Auto) 25.0 % 03/30/23 14:13 [place] % (Auto) 10.3 % 03/30/23 14:13 Eos % (Auto) 0.9 % 03/30/23 14:13 Baso % (Auto) 0.4 % 03/30/23 14:13 Neut # (Auto) 3.50 K/uL (1.40-6.50) 03/30/23 14:13 Lymph # (Auto) 1.39 K/uL (1.2-3.4) 03/30/23 14:13 [place] # (Auto) 0.57 K/uL (0.11-0.59) 03/30/23 14:13 Eos # (Auto) 0.05 K/uL (0-0.50) 03/30/23 14:13 Baso # (Auto) 0.02 K/uL (0-0.2) 03/30/23 14:13 Immature Gran # (Auto) 0.02 K/uL (0.01-0.20) 03/30/23 14:13 PT 14.2 Seconds (9.0-12.0) H 03/30/23 14:13 INR 1.3 (0.9-1.1) H 03/30/23 14:13 APTT 37.7 Seconds (21.0-31.0) H 03/30/23 14:13 PTT Ratio 1.3 03/30/23 14:13 Sodium 131 mmol/L (136-145) L 03/30/23 14:13 Potassium 4.3 mmol/L (3.5-5.1) 03/30/23 14:13 Chloride 100 mmol/L (98-107) 03/30/23 14:13 Carbon Dioxide 25 mmol/L (21-32) 03/30/23 14:13 Anion Gap 6 (3-11) 03/30/23 14:13 BUN 20 mg/dl (6-23) 03/30/23 14:13 Creatinine 1.24 mg/dl (0.6-1.4) 03/30/23 14:13 Est Cr Clr Drug Dosing 46.0 ml/min 03/30/23 14:13 Est GFR ( Amer) 63.2 ml/min 03/30/23 14:13 Est GFR (Non-Af Amer) 54.6 ml/min 03/30/23 14:13 BUN/Creatinine Ratio 16.1 (10-20) 03/30/23 14:13 Glucose 144 mg/dl (70-99(Fasting)) H 03/30/23 14:13 Calcium 8.3 mg/dl (8.6-10.3) L 03/30/23 14:13 Magnesium 1.7 mg/dl (1.7-2.4) 03/30/23 14:13 Total Bilirubin 0.8 mg/dl (0.2-1.0) 03/30/23 14:13 AST 19 U/L (13-39) 03/30/23 14:13 ALT 11 U/L (7-52) 03/30/23 14:13 Alkaline Phosphatase 231 U/L (34-104) H 03/30/23 14:13 Ammonia 28.0 umol/L (18-72) 03/30/23 15:34 Total Protein 6.3 gm/dl (6.0-8.3) 03/30/23 14:13 Albumin 1.9 gm/dl (3.4-5.0) L 03/30/23 14:13 Globulin 4.4 gm/dl (2.5-4.0) H 03/30/23 14:13 Albumin/Globulin Ratio 0.4 (0.9-2) L 03/30/23 14:13 TSH 3.558 uIu/ml (0.300-4.500) 03/30/23 14:13 Urine Color Yellow 03/30/23 17:30 Urine Appearance Clear (Clear) 03/30/23 17:30 Urine pH 5.5 (4.5-7.5) 03/30/23 17:30 Ur Specific Canvas 1.014 (1.000-1.030) 03/30/23 17:30 Urine Protein Negative (Negative) 03/30/23 17:30 Urine Glucose (UA) Negative (Negative) 03/30/23 17:30 Urine Ketones Negative (Negative) 03/30/23 17:30 Urine Blood Negative (Negative) 03/30/23 17:30 Urine Nitrite Negative (Negative) 03/30/23 17:30 Urine Bilirubin Negative (Negative) 03/30/23 17:30 Urine Urobilinogen Negative (Negative) 03/30/23 17:30 Ur Leukocyte Esterase 1+ (Negative) H 03/30/23 17:30 Urine WBC (Auto) 1-5 /hpf (0-5) 03/30/23 17:30 Urine RBC (Auto) 0-4 /hpf (0-4) 03/30/23 17:30 U Hyaline Cast (Auto) 1-5 /lpf (0-5) 03/30/23 17:30 U Epithel Cells (Auto) 20-30 /lpf (0-5) H 03/30/23 17:30 Urine Bacteria (Auto) Negative (Negative) 03/30/23 17:30 Adenovirus (PCR) Not Detected (NotDetected) 03/30/23 14:25 B. pertussis DNA (PCR) Not Detected (NotDetected) 03/30/23 14:25 B.parapertussis DNA PCR Not Detected (NotDetected) 03/30/23 14:25 C. pneumoniae DNA (PCR) Not Detected (NotDetected) 03/30/23 14:25 Coronavirus OC43 (PCR) Not Detected (NotDetected) 03/30/23 14:25 Coronavirus HKU1 (PCR) Not Detected (NotDetected) 03/30/23 14:25 Coronavirus 229E (PCR) Not Detected (NotDetected) 03/30/23 14:25 SARS-CoV-2 (PCR) Not Detected (NotDetected) 03/30/23 14:25 Coronavirus NL63 (PCR) Not Detected (NotDetected) 03/30/23 14:25 Human Metapneumovir PCR Not Detected (NotDetected) 03/30/23 14:25 Influenza Type A (PCR) Not Detected (NotDetected) 03/30/23 14:25 Influenza Type B (PCR) Not Detected (NotDetected) 03/30/23 14:25 M. pneumoniae (PCR) Not Detected (NotDetected) 03/30/23 14:25 Parainfluenza 1 (PCR) Not Detected (NotDetected) 03/30/23 14:25 Parainfluenza 2 (PCR) Not Detected (NotDetected) 03/30/23 14:25 Parainfluenza 3 (PCR) Not Detected (NotDetected) 03/30/23 14:25 Parainfluenza 4 (PCR) Not Detected (NotDetected) 03/30/23 14:25 RSV (PCR) Not Detected (NotDetected) 03/30/23 14:25 Entero/Rhino (PCR) Not Detected (NotDetected) 03/30/23 14:[address] 03/30/23 14:15 CT OF THE HEAD WITHOUT CONTRAST CLINICAL HISTORY: Confusion. COMPARISON STUDY: MRI of the brain May 29, 2021. Head CT January 21, 2023. CT DOSE: 625.80 mGy.cm TECHNIQUE: Helical axial images of the head were obtained without IV contrast. Automated exposure control was utilized for the study. A dose lowering technique was utilized adhering to the principles of ALARA. FINDINGS: White matter hypodensities are similar to prior exam and favor small vessel disease. No acute intracranial hemorrhage, midline shift or mass effect is present. The ventricular system is unremarkable. The basal cisterns are patent. No extra-axial collections are present. There are no findings to suggest acute dural sinus thrombosis or acute territorial infarct. No significant david varial abnormalities are present. Visualized portions of the sinuses and mastoid air cells are clear. IMPRESSION: No acute intracranial findings. No change in appearance of the brain. ACT 112: Negative or not required by law. Electronically signed by: Maximiliano Orozco M.D. 03/30/2023 3:07 PM Chest X-Ray 03/30/23 14:16 SINGLE VIEW CHEST CLINICAL HISTORY: Generalized weakness. FINDINGS: An AP, portable, upright chest radiograph is compared to study dated 01/21/2023 and correlated with chest CT dated 04/02/2021. The cardiomediastinal silhouette is top normal for projection noting atherosclerotic calcification of the thoracic aorta. The pulmonary vasculature is noncongested. Chronic interstitial thickening is similar to previous. There is chronic elevation of the right hemidiaphragm with bibasilar scarring/atelectasis. No airspace consolidation or large pleural effusion is identified. No pneumothorax is seen. The skeletal structures are osteopenic. The bony thorax is grossly intact. Fusion hardware is seen at the cervicothoracic junction. Arthritic change is seen in the shoulders and spine. There are surgical clips in the upper abdomen. IMPRESSION: No acute cardiopulmonary abnormality is identified. ACT 112: Negative or not required by law. Electronically signed by: Tony Morocho M.D. 03/30/2023 3:43 PM Code Status & VTE Plan Code Status Full code. We will need to discuss further with family VTE Prophylaxis Plan VTE Prophylaxis will be ordered: Yes PG Care Time/CCT Total # of Minutes Spent Total Time Spent with Patient: Total time spent is greater than 50% in coordination of care (as documented) at patient's floor/unit and/or counseling patient: Coding Level of Care Code 87249 INT INP/OBS CARE 3/75MIN Diagnoses Aortic valve stenosis I35.0 Generalized weakness R53.1 Weight loss of more than 10% body weight R63.4 Iron deficiency anemia D50.9 Vestibular schwannoma D33.3 Cirrhosis K74.60 Hypothyroid E03.9 Alcohol dependence F10.20 Hypertension I10 Hypertension type: essential hypertension Depression F32.9 Diabetes mellitus, type 2 E11.9 Diabetes mellitus intermediate insulin use: without watermelon inspector use Chronic kidney disease stage 3 subtype: stage 3a (GFR 45-59) GERD (gastroesophageal reflux disease) K21.9 Hypercholesterolemia E78.00 Restless legs syndrome G25.81 (9) Hypertension Hypertension type: essential hypertension Qualified Code(s): I10 - Essential (primary) hypertension (11) Diabetes mellitus, type 2 Diabetes mellitus watermelon inspector insulin use: without intermediate use Chronic kidney disease stage 3 subtype: stage 3a (GFR 45-59)
[2023-03-30] MEDS ORDERED: ONDANSETRON INJ 2 MG/ML 2 ML VIAL IV PRN (21:12)
[2023-03-30] MEDS: FOLIC ACID 1 MG in SYRINGE 9.8 ML IV SCH (22:26)
[2023-03-30] MEDS: FAMOTIDINE 20 MG in SYRINGE 3 ML IV SCH (22:26)
[2023-03-30] MEDS: THIAMINE HCL 100 MG in SYRINGE 9 ML IV SCH (22:27)
[2023-03-30] MEDS: NSS + 20MEQ KCL 20 MEQ/1,000 ML BAG IV SCH (22:27)
[2023-03-30] MEDS: HEPARIN SOD 5,000 UNIT/0.5 ML VIAL SQ SCH (22:27)
[2023-03-31 07:17] LABS: Albumin Level 1.8 gm/dl (3.4-5.0); BUN Creatinine Ratio 17.6 (10-20); Basophils # (auto) 0.03 K/uL (0-0.2); Basophils % (auto) 0.5 %; Calcium 8.5 mg/dl (8.6-10.3); Creatinine Clr Calc Pharmacy 52.2 ml/min; Eosinophils # (auto) 0.05 K/uL (0-0.50); Eosinophils % (auto) 0.8 %; Est GFR (African American) 74.7 ml/min; Est GFR (Non-African American) 64.5 ml/min; Hemoglobin 9.8 g/dl (14.0-18.0); Immature Granulocytes # (auto) 0.02 K/uL (0.01-0.20); Immature Granulocytes % (auto) 0.3 %; Lymphocytes # (auto) 1.04 K/uL (1.2-3.4); Lymphocytes % (auto) 17.3 %; Magnesium 1.6 mg/dl (1.7-2.4); Mean Corpuscular Hemoglobin 25.9 pg (25.0-34.0); Mean Corpuscular Hgb Conc 31.6 g/dL (32.0-36.0); Monocytes # (auto) 0.36 K/uL (0.11-0.59); Neutrophils # (auto) 4.52 K/uL (1.40-6.50); Neutrophils % (auto) 75.1 %; Phosphorus 3.1 mg/dl (2.5-4.9); Platelet Count 133 K/uL (130-400); RDW Standard Deviation 52.2 fL (36.4-46.3); Red Blood Count 3.78 M/uL (4.70-6.10); White Blood Count 6.02 K/ul (4.8-10.8)
[2023-03-31] MEDS ORDERED: MAGNESIUM SULFATE / D5W 1 GM/100 ML BAG IV ONE (08:43)
[2023-03-31] MEDS: NSS + 20MEQ KCL 20 MEQ/1,000 ML BAG IV SCH ×2 (08:48→18:48)
[2023-03-31] MEDS: FAMOTIDINE 20 MG in SYRINGE 3 ML IV SCH ×2 (08:49→20:14)
[2023-03-31] MEDS: THIAMINE HCL 100 MG in SYRINGE 9 ML IV SCH (08:49)
[2023-03-31] MEDS: FOLIC ACID 1 MG in SYRINGE 9.8 ML IV SCH (08:49)
[2023-03-31] MEDS: HEPARIN SOD 5,000 UNIT/0.5 ML VIAL SQ SCH ×2 (08:51→20:05)
--- NOTE | 2023-03-31 15:09 | Hospitalist Progress Note ---
Date of Service March 31, 2023 Assessment & Plan (1) Failure to thrive in adult: Plan: Acute/unstable - high risk - Patient with persistent weight loss of more than 10% body weight - concern for moderate to severe protein calorie malnutrition with a declining albumin of 1.8 - Per , pt is becoming increasingly weak, fatigued, unable to feed self, take pills, maintain adequate oral hydration or nutrition - Ammonia level checked and WNL at 47 - No obvious source of infection, cbc reviewed, normal wbc count at 6.02, no shift - CMP reviewed, not in renal failure, electrolytes stable - UA WNL and respiratory biofire negative, CXR and head CT negative - Magnesium level reviewed, low at 1.6, IV replacement ordered - mIVF initiated: NSS w/ 20 meq KCl @ 100 ml/hr - NPO as he cannot safely eating/drink given his somnolence (2) Aortic valve stenosis: Plan: Chronic/stable - Pt has declined referral to cardiology (3) Cirrhosis: Plan: Chronic/stable - Related to prior h/o alcohol abuse - LFTs alk phos elevated at 231, has been waxing and waning dating back to 2017 - Ammonia level obtained and WNL at 47 - Cautious IVF use, monitor for s/sx of volume overload - IV Thiamine + Folic acid ordered - Lactulose, spironolactone, propranolol and lasix held d/t NPO (4) Hypothyroid: Plan: Chronic/stable - Unable to safely take PO, therefore thyroid replacement held (5) Hypertension: Plan: Chronic/stable - History of such - On diuretics and propranolol for liver disease, esophageal varices of which are on hold d/t NPO status - BP currently low at 105/71 (6) Depression: Plan: Chronic/stable - Venlafaxine held d/t NPO status Plan Lengthy discussion with his , Danita, at bedside regarding his progressive decline and failure to thrive. We discussed code status and it was confirmed that the patient had previously indicated he would not want life sustaining measures including cpr, intubation, mech ventilation, or defibrillation. Therefore, his code status was changed to reflect his wishes as confirmed by his to DNR/DNI. In addition, given his decline, we discussed palliative care consult to help establish goals of care for Gayr and ultimately a disposition. She understands that his prognosis is poor and is agreeable to meet with palliative care at 11am on 04/01. She will reach out to her sons, both of which are not in the immediate area, and will write down any questions she has in preparation for tomorrow's meeting. For now, continue mIVF, defer additional labs. Discussed with Tejinder Rust DNP, from palliative med team who will see pt tomorrow. Plan to be d/w Dr. Preez. Admission and Anticipated Discharge Date Admission Date: March 30, 2023 Subjective Patient seen on daily rounds this morning. He is minimally responsive. Does not awaken enough to answer questions. Physical Exam Physical Exam: GENERAL: 82 yo well-developed, underweight elderly M. Appears chronically ill. NAD. LUNGS: Clear to auscultation bilaterally w/o W/R/R. CARDIOVASCULAR: Regular rate and rhythm with 2/6 CHRISTEN ABDOMEN: Soft, non-tender and non-distended. Bowel sounds normoactive x 4 quad. EXTREMITIES: No edema. Non-tender. Peripheral pulses +2/4. NEUROLOGIC: somnolent Results & Data Results & Data Vital Signs (Past 12 Hours) Vital Signs Temp Pulse Resp BP Pulse Ox O2 Del Method 03/31/23 07:36 36.7 C 75 16 105/71 96 Room Air Laboratory Results 03/31/23 06:28 03/31/23 06:28 PG Care Time/CCT Total # of Minutes Spent Total Time Spent with Patient: Total time spent is greater than 50% in coordination of care (as documented) at patient's floor/unit and/or counseling patient: Coding Level of Care Code 57991 SUB INP/OBS CARE 2/35MIN Diagnoses Failure to thrive in adult R62.7 Aortic valve stenosis I35.0 Cirrhosis K74.60 Hypothyroid E03.9 Hypertension I10 Hypertension type: essential hypertension Depression F32.9 (5) Hypertension Hypertension type: essential hypertension Qualified Code(s): I10 - Essential (primary) hypertension
--- NOTE | 2023-03-31 15:35 | Electrocardiogram Report ---
Test Reason : Blood Pressure : / mmHG Vent. Rate : 068 BPM Atrial Rate : 068 BPM P-R Int : 180 ms QRS Dur : 082 ms QT Int : 452 ms P-R-T Axes : 087 -32 002 degrees QTc Int : 480 ms Normal sinus rhythm Left axis deviation Prolonged QT Abnormal ECG When compared with ECG of 30-MAR-2023 14:35, Premature supraventricular complexes are no longer Present Confirmed by Bird De La Cruz ([id number]) on 03/31/2023 3:35:24 PM Referred By: REFERRED SELF Confirmed By:Bird De La Cruz
[2023-04-01] MEDS: NSS + 20MEQ KCL 20 MEQ/1,000 ML BAG IV SCH ×3 (05:36→23:39)
[2023-04-01 06:55] LABS: Basophils # (auto) 0.03 K/uL (0-0.2); Basophils % (auto) 0.5 %; Eosinophils # (auto) 0.07 K/uL (0-0.50); Eosinophils % (auto) 1.1 %; Hematocrit (blood only) 31.1 % (42.0-52.0); Hemoglobin 9.8 g/dl (14.0-18.0); Immature Granulocytes # (auto) 0.02 K/uL (0.01-0.20); Immature Granulocytes % (auto) 0.3 %; Lymphocytes # (auto) 1.17 K/uL (1.2-3.4); Lymphocytes % (auto) 18.3 %; Mean Corpuscular Hemoglobin 26.1 pg (25.0-34.0); Mean Corpuscular Hgb Conc 31.5 g/dL (32.0-36.0); Mean Corpuscular Volume 82.7 fL (80.0-100.0); Mean Platelet Volume 9.4 fL (9.4-12.4); Monocytes # (auto) 0.44 K/uL (0.11-0.59); Monocytes % (auto) 6.9 %; Neutrophils # (auto) 4.66 K/uL (1.40-6.50); Neutrophils % (auto) 72.9 %; Platelet Count 137 K/uL (130-400); RDW Coefficient of Variation 18.3 % (11.5-14.5); RDW Standard Deviation 53.8 fL (36.4-46.3); Red Blood Count 3.76 M/uL (4.70-6.10); White Blood Count 6.39 K/ul (4.8-10.8)
[2023-04-01 07:37] LABS: Albumin Level 1.7 gm/dl (3.4-5.0); Calcium 8.4 mg/dl (8.6-10.3); Magnesium 1.8 mg/dl (1.7-2.4); Potassium 4.3 mmol/L (3.5-5.1)
[2023-04-01 07:42] LABS: BUN Creatinine Ratio 18.4 (10-20); Creatinine Clr Calc Pharmacy 54.7 ml/min; Est GFR (African American) 79.1 ml/min; Est GFR (Non-African American) 68.3 ml/min; Phosphorus 3.3 mg/dl (2.5-4.9)
--- NOTE | 2023-04-01 09:28 | Palliative Care Consultation ---
Date of Consultation April 01, 2023 Assessment & Plan (1) Palliative care by specialist: Bedside discussion held with patient and his . I provided overview of Palliative Medicine, a subspecialty that provides specialized medical care for people living with a serious illness by offering a focus on quality of life. Palliative Medicine is often conflated with hospice: I advised patient/family that Palliative and hospice can be partners but we are not the same. It is important to understand the difference so that we may be informed, and not afraid. Palliative Medicine works to improve QOL through reduction of symptom burden/more control over their illness, for both the patient and family. Palliative medicine clinicians are board certified, specially-trained and another member of the patient's medical care team. We often provide an extra layer of support because our care is based on the needs of the patient, not the prognosis; as such, it's appropriate at any age/advancing stage of a serious illness and can be provided along with curative treatment. Palliative Medicine clinicians are also trained in advanced communication methodologies, to facilitate complex discussions about advanced illness planning, which are needed to help assure that the treatment choices match the patient's goals, aka delivering Goal Concordant care. Finally, we discussed that hospice is a visiting nurse service that focuses on care delivered at the very end of life for patients with terminal illness, with life expectancy less than 6 month. (2) Advanced care planning/counseling discussion: A 45-minute [id number] advance care planning conversation was held with patient and his at the bedside. We reviewed that all chronic/progressive disease has a declining trajectory over time where facets of patient self-identity and independence are lost. Every acute event leads to a further decline, resulting- many times, in a new baseline. Advised that the greatest priority is to determine what matters most to pt, then family and to develop a plan of care that is aligned with those priorities.Advance illness planning conversations are conducted to review goals and expectations, support shared decision-making, and engage in disease specific advance care planning. This type of advance care planning is sometimes referred to as 'preparedness planning. It is used to review the risks and benefits of offered therapy, elicit and deepen understanding of the underlying illness and therapeutic options, ensure adequate psychosocial support, address existential concerns and coping, and engage in end-of-life planning. Preparedness planning is not meant to replace informed consent discussions. Palliative medicine plays a role in the process of deepening a patients understanding of this specific medical intervention and ensuring this treatment aligns with their goals of care remains a central tenet of the planning conversation. Patient, his and I discussed his general decline in the past few months. Patient notes that in the last 1 to 2 months has been more pronounced weakness and decline. notes that there are times where he will sleep 1 to 1-1/2 days at a time. Often during the cycles of prolonged sleep (long sleep cycles) she has not been able to administer his meds. She had been concerned prior to the last admission that his fatigue and weakness was possibly medication related and so she had held his gabapentin and reduce the dose of his venlafaxine. Upon admission to the hospital he has been free of gabapentin dose for nearly 5 days without any improvement in his fatigue or lethargy. His venlafaxine dose was decreased and remains at approximately half the prior dose however his overall symptoms have not changed. We reviewed the overall series of medical complexities he is experienced over the last few months. We also spoke about t he progression of his liver disease, progressive weakness, declining oral intake, and the definition of what we would refer to medically is failure to thrive. Patient and acknowledge that he is at a point where things are not going to substantially improve and he does not wish to pursue any aggressive or invasive interventions. Patient notes that he would rather spend his time at home, which is supported by both his and his children.. shares that she spoke with both of their sons last night, 1 lives in [place] and the other lives closer in [facility].. All are in agreement for patient to return home. We discussed the option of returning home with a higher level of in-home support which would be covered through Medicare and is known as the hospice benefit.We discussed the goals of hospice as a patient service and the goals of care; we discussed EOL trajectories and transitions vincent the emotional impact of realizing mortality as a concrete reality from prior abstract considerations. Pt was reassured that no matter where they are along this trajectory, they are not alone - their medical team will remain by their side through their journey. Discussed the pros/cons of accepting help when especially weakened and distressed by pain-which would also help provide relief/decrease caregiver burden/strain.I provided education about the hospice benefit: an interdisciplin elisabeth program offered by nurses, nurses aides, social workers, chaplains and a medical technologist chief for patients with a terminal condition and a life expectancy of less than 6 months. This is covered by Medicare at 100%/no out of pocket expense to patient and all meds/supplies needed by patient for the reason they are on hospice are paid for/covered by hospice. The goal is assure quality of life of the patient in their home setting (home, long term, inpatient hospice setting) by providing symptoms management, psychosocial and spiritual support. However, they cannot offer 24 hours care and if the family is unable to provide that care, they will have to consider personal care with out of pocket cost vs. long term placement. We discussed the goals of hospice as a patient service and the goals of care; we discussed EOL trajectories and transitions vincent the emotional impact of realizing mortality as a concrete reality from prior abstract considerations. Pt was reassured that no matter where they are along this trajectory, they are not alone - their medical team will remain by their side through their journey. Discussed the pros/cons of accepting help when especially weakened and distressed by pain-which would also help provide relief/decrease caregiver burden/strain. (3) Generalized weakness: (4) Altered mental status: (5) Lethargy: (6) Failure to thrive in adult: (7) Liver cirrhosis, alcoholic: Ascites presence: without ascites Qualified Code(s): K70.30 - Alcoholic cirrhosis of liver without ascites (8) Aortic valve stenosis: (9) Alcohol dependence: (10) Diabetes mellitus, type 2: Chronic kidney disease stage 3 subtype: stage 3a (GFR 45-59) Diabetes mellitus mcfp insulin use: without terminologist use (11) Depression: Plan * Patient and his , after discussion with both of their sons, have elected to return home on a comfort and quality of life focused plan of care with the utilization of the Medicare hospice benefit. * That he would like to have him as optimized as possible prior to discharge. would like to review a list of available hospice agencies and discuss those choices with some friends and family before deciding tomorrow. She anticipates at minimum she will need a hospital bed and an adjustable bedside table. This has been communicated to care management and the primary team. * Patient has no acute inpatient palliative medicine needs at this time however we will continue to follow him to assure a smooth transition to home hospice. Thank you for allowing us to participate in the ongoing care of this patient. Please don't hesitate to call or page with any additional concerns. Dr. Faith Antonio DNP Director, Palliative Care Please note: the above document was generated using voice recognition software. It may contain unintentional grammatical, syntax or spelling errors. Any formal questions or concerns about the content, text or information contained within the body of this dictation should be directly addressed to the provider for clarification. History of Present Illness Reason for Consultation: [facility] Attending Physician: Duane Wilkes MD History of Present Illness Gary Huggins is an 82yo male with PMH aortic stenosis, lumbar spine stenosis, iron deficiency anemia, vestibular schwannoma, cirrhosis, lethargy, SNHL bilaterally, intraductal papillary mucinous neoplasm of the pancreas, hypertension, depression, esophageal varices, hypercholesterolemia and restless leg syndrome He presents to ED with chronically progressive weakness,+confusion/AMS, generalized decline and failure to thrive with very poor oral intake. His reports he cannot feed himself, take meds or perform his ADLs. Current albumin is 1.8. Labs do not show a source of infection. Resp panel neg. CXR and CT head negative due to increased somnolence he cannot take PO safely. IVF have been initiated. with regards to Ao valve stenosis, pt and consistently decline referral to cardiology his cirrhosis is from prior h/x ETOH abuse Admissions to date: 03/30/23 - current 01/21/23 - 01/26/23 11/03/22 - 11/08/22 05/30/22 Allergies Allergy/AdvReac Type Severity Reaction Status Date / Time etodolac AdvReac Mild n/v Verified 03/26/23 10:54 meloxicam AdvReac Mild n/v Verified 03/26/23 10:54 Home Medications Medication Instructions Recorded Confirmed Type atorvastatin 80 mg tablet 80 mg PO QAM 06/13/19 03/30/23 History cholecalciferol (vitamin D3) 25 25 mcg PO QAM 08/20/21 03/30/23 History mcg (1,000 unit) capsule fluticasone propionate 50 1 spray intranasal HS PRN Allergy 01/21/23 03/30/23 History mcg/actuation nasal Symptoms spray,suspension gabapentin 400 mg capsule 400 mg PO HS 01/21/23 03/30/23 History ondansetron 4 mg disintegrating 4 mg PO Q6H PRN Nausea 01/21/23 03/30/23 History tablet pantoprazole 40 mg tablet,delayed 40 mg PO AMHS 01/21/23 03/30/23 History release venlafaxine 75 mg capsule,extended 150 mg PO QAM #60 caps 02/16/23 03/30/23 Rx release 24 hr melatonin 5 mg tablet 5 mg PO HS PRN Sleep 02/17/23 03/30/23 History thiamine HCl (vitamin B1) 100 mg 100 mg PO QAM 02/17/23 03/30/23 History tablet sucralfate 1 gram tablet (Carafate) 1 g PO ACHS #120 tabs 02/18/23 03/30/23 Rx furosemide 20 mg tablet 20 mg PO QAM 02/25/23 03/30/23 History levothyroxine 25 mcg tablet 25 mcg PO QAM 02/25/23 03/30/23 History magnesium oxide 400 mg PO QAM 02/25/23 03/30/23 History oxycodone-acetaminophen 5 mg-325 1 tab PO BID PRN Pain 02/25/23 03/30/23 History mg tablet spironolactone 50 mg tablet 50 mg PO QAM 02/25/23 03/30/23 History lactulose 10 gram/15 mL oral 15 ml PO QID #237 mL 03/26/23 03/30/23 Rx solution (Enulose) propranolol 20 mg tablet 20 mg PO BID #60 tabs 03/26/23 03/30/23 Rx Patient History Medical History (Updated 04/01/23 @ 09:35 by Faith Antonio, NAINA) AAA (abdominal aortic aneurysm) 3 x 2.5 cm, to have f/u imaging in 2 yrs Abdominal ascites Acute GI bleeding Advanced care planning/counseling discussion Alcohol dependence pt quit drinking 10/2022 prior to quiting "drank 4 beers a day" Altered mental status Anemia chronic, baseline hgb 10-11 range per chart review, received 4 units PRBCs during 01/2023 hospitalization with GI bleed-see summary below in note. 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, alcoholic hx small esophageal varices (09/2020) under surveillance, no banding indicated on most recent EGD, follows with [facility], stable Lumbar stenosis Neck pain with history of cervical spinal surgery Palliative care by specialist Pancreatic mass pancreatic pseudocyst Pancreatitis 2016 Portal hypertension Restless legs syndrome Sensorineural hearing loss (SNHL) of both ears Severe aortic stenosis 01/2023 echo, pt refusing cardio per [facility] Splenomegaly Status post abdominal paracentesis Symptomatic anemia Thrombocytopenia hx cirrhosis, chronic mild thrombocytopenia Surgical History History of biopsy pancreatic mass biopsy on 07/01/2020 - benign History of colonoscopy last 04/2021 History of cystoscopy d/t incontinence History of esophagogastroduodenoscopy (EGD) last 11/04/22 @ [facility] 11/30/19: MAC sedation at [facility] History of laminectomy X3 History of prostatectomy History of right inguinal hernia repair 09/14/19 VILLEDA#5. History of tooth extraction Hx of cervical spine surgery (12/2019) C3-C6 laminectomy, C3-T1 PCF Hx of inguinal hernia surgery (09/14/19) Open Right Inguinal Hernia Repair with Mesh: 09/14/19: LMA#5 at [facility] Status post right knee replacement 11/12/2021 Grade 1 view, MAC 3, ETT 7.5 + PNB. Family History Sister Family history of diabetes mellitus Breast cancer Mother Colorectal cancer Stroke Hypertension Brother Prostate cancer Colorectal cancer Father Myocardial infarction Son Thyroid disease Mother Family history of diabetes mellitus Sister Family history of diabetes mellitus Sister Family history of diabetes mellitus Other Cancer No family history of adverse response to anesthesia No family history of allergies No family history of bleeding disorder Denies family history of Ovarian cancer Hearing loss Heart disease Asthma Social History Smoking Status: Never smoker Tobacco Type: Smokeless Tobacco (Dip or Chew) Second Hand Exposure: No; Do You Dip or Chew Tobacco: Yes; Hx Alcohol Use: Yes Alcohol type: beer Alcohol Intake Frequency: 4 or More x per/Week Alcohol Intake Frequency Comment: at night 4-5 beers a night Hx Substance Use: No Preferred Language: Georgian Communication Ability: Impaired Visual Impairment: No Limitations Hearing Ability: Use of Hearing Aid Sap Basis Required: No Beliefs That Will Affect Care: Amish Amish Beliefs: NONDENOMINATIONAL marital status: Current Living Situation: Spouse current occupational status: retired Feels Safe at Home: Yes Safety Concerns: Feels Safe At This Time Childhood Exposure to Second-Hand Smoke: No Diet: regular Diet Comment: regular caffeine: No during the past year weight has: remained stable Dental Care, Regularly: No Physical Activity Frequency: Daily Physical Activity Frequency Comment: limited by physical condition Seatbelt Use: always Sunscreen Use: No Assistive Devices: Cane and Walker Review of Systems Review of Systems: Unobtainable due to reduced consciousness (patient with AMS /lethargy) Physical Exam Physical Exam: Resting in bed, no acute distress. Presently more awake and alert than expected. at the bedside states he has been alert and very appropriate in conversation with her patient is able to answer simple questions at times has delayed response but is most part appropriate in the information he relays has been verified with his . His color is pale, skin is cool. He has some few scattered ecchymoses. Respiratory effort is normal. There is no use of accessory muscles. There is mild JVD noted. S1-S2. Abdomen is soft, mildly tender with palpation. Generalized weakness throughout. Patient is awake and alert to self, place and time as well. He is able to follow simple commands and answer simple questions consistently and appropriately. Results & Data Vital Signs (Past 12 Hours) Vital Signs Temp Pulse Resp BP Pulse Ox O2 Del Method 04/01/23 07:15 36.3 C L 76 16 114/74 94 Room Air Laboratory Results data reviewed Diagnostic Findings data reviewed PG Care Time/CCT Total # of Minutes Spent Total Time Spent: 90 Total Time Spent with Patient: Total time spent is greater than 50% in coordination of care (as documented) at patient's floor/unit and/or counseling patient: I spent 90 minutes overall addressing this case: 15 in medical data review/discussion with referring provider(s) and/or preparation for the visit 15 in direct interaction with the patient 45 Advance Care Planning/Goals of Care discussions as detailed above in note (must be >16min) 5 in subsequent review and synthesis of assessment and plan 10 in communicating with other providers regarding the patient's case: [] Advanced Care Planning 30853 Advanced Care Planning 30 Min 01548 Advanced Care Planning Additional 30 [place] [address] IN/OBS CONSULT LVL 5,80M Patient Type New History Comprehensive Exam Detailed Medical Decision Making Moderate Complexity Diagnoses Palliative care by specialist Z51.5 Advanced care planning/counseling discussion Z71.89 Generalized weakness R53.1 Altered mental status R41.82 Lethargy R53.83 Failure to thrive in adult R62.7 Liver cirrhosis, alcoholic K70.30 Ascites presence: without ascites Aortic valve stenosis I35.0 Alcohol dependence F10.20 Diabetes mellitus, type 2 E11.9 Chronic kidney disease stage 3 subtype: stage 3a (GFR 45-59) Diabetes mellitus mcfp insulin use: without terminologist use Depression F32.9 Additional Codes Advanced Care Planning - 72695 Advanced Care Planning 30 Min: 81112 Advanced Care Planning 30 Min ([id number]) Advanced Care Planning - 99126 Advanced Care Planning Additional 30 Min: 44273 Advanced Care Planning Additional 30 Min ([id number])
[2023-04-01] MEDS: HEPARIN SOD 5,000 UNIT/0.5 ML VIAL SQ SCH ×2 (09:34→20:11)
[2023-04-01] MEDS: FOLIC ACID 1 MG in SYRINGE 9.8 ML IV SCH (09:34)
[2023-04-01] MEDS: THIAMINE HCL 100 MG in SYRINGE 9 ML IV SCH (09:34)
[2023-04-01] MEDS: FAMOTIDINE 20 MG in SYRINGE 3 ML IV SCH ×2 (09:39→20:11)
--- NOTE | 2023-04-01 12:41 | Hospitalist Progress Note ---
Date of Service April 01, 2023 Assessment & Plan (1) Failure to thrive in adult: Plan: Acute/unstable - high risk - Patient with persistent weight loss of more than 10% body weight - concern for moderate to severe protein calorie malnutrition with a declining albumin of 1.7 - Per , pt is becoming increasingly weak, fatigued, unable to feed self, take pills, maintain adequate oral hydration or nutrition - Ammonia level checked and WNL at 47 - No obvious source of infection, cbc reviewed, normal wbc count at 6.39, no shift - CMP reviewed, not in renal failure, electrolytes stable - UA WNL and respiratory biofire negative, CXR and head CT negative - Magnesium level reviewed today, normalized to 1.8 - mIVF initiated: NSS w/ 20 meq KCl @ 100 ml/hr - NPO as he cannot safely eating/drink and voices no interest in attempting to eat/drink - D/w at bedside on 03/31, palliative medicine consult placed, appreciate assistance - based on their meeting today (04/01), pt and have elected to return home with hospice care (2) Aortic valve stenosis: Plan: Chronic/stable - Pt has declined referral to cardiology (3) Cirrhosis: Plan: Chronic/stable - Related to prior h/o alcohol abuse - LFTs alk phos elevated at 231, has been waxing and waning dating back to 2017 - Ammonia level obtained and WNL at 47 - Cautious IVF use, monitor for s/sx of volume overload - IV Thiamine + Folic acid ordered - Lactulose, spironolactone, propranolol and lasix held d/t NPO (4) Hypothyroid: Plan: Chronic/stable - Unable to safely take PO, therefore thyroid replacement held (5) Hypertension: Plan: Chronic/stable - History of such - On diuretics and propranolol for liver disease, esophageal varices of which are on hold d/t NPO status - BP currently low-normal range (6) Depression: Plan: Chronic/stable - Venlafaxine held d/t NPO status Plan Lengthy discussion with his , Danita, at bedside on 03/31 regarding his progressive decline and failure to thrive. We discussed code status and it was confirmed that the patient had previously indicated he would not want life sanderson staining measures including cpr, intubation, mech ventilation, or defibrillation. Therefore, his code status was changed to reflect his wishes as confirmed by his to DNR/DNI. Plan is for patient to return home on 04/02 in the care of his with hospice services. Will need a hospital bed and bedside table, scripts have been written and given to case management team. Appreciate palliative med's assistance in this case. Plan to be d/w Dr. Wilkes. Admission and Anticipated Discharge Date Admission Date: March 30, 2023 Subjective Patient has been seen on daily rounds this morning. More awake, alert today. Able to articulate that it is 2022 and oriented to self but is unaware of his location. He denies abd pain, n/v/d, cp, or dyspnea. He states he has no appetite. Physical Exam Physical Exam: GENERAL: 82 yo well-developed, underweight elderly M. Appears chronically ill. NAD. LUNGS: Clear to auscultation bilaterally w/o W/R/R. CARDIOVASCULAR: Regular rate and rhythm with 2/6 CHRISTEN ABDOMEN: Soft, non-tender and non-distended. Bowel sounds normoactive x 4 quad. EXTREMITIES: No edema. Non-tender. Peripheral pulses +2/4. NEUROLOGIC: A&Ox2. No focal neuro deficits. Results & Data Results & Data Vital Signs (Past 12 Hours) Vital Signs Temp Pulse Resp BP Pulse Ox O2 Del Method 04/01/23 07:15 36.3 C L 76 16 114/74 94 Room Air PG Care Time/CCT Total # of Minutes Spent Total Time Spent with Patient: Total time spent is greater than 50% in coordination of care (as documented) at patient's floor/unit and/or counseling patient: Coding Level of Care Code 53606 SUB INP/OBS CARE 2/35MIN Diagnoses Failure to thrive in adult R62.7 Aortic valve stenosis I35.0 Cirrhosis K74.60 Hypothyroid E03.9 Hypertension I10 Hypertension type: essential hypertension Depression F32.9 (5) Hypertension Hypertension type: essential hypertension Qualified Code(s): I10 - Essential (primary) hypertension
[2023-04-02 07:33] LABS: Basophils # (auto) 0.01 K/uL (0-0.2); Basophils % (auto) 0.2 %; Eosinophils # (auto) 0.05 K/uL (0-0.50); Eosinophils % (auto) 0.9 %; Hematocrit (blood only) 30.9 % (42.0-52.0); Hemoglobin 9.8 g/dl (14.0-18.0); Immature Granulocytes # (auto) 0.02 K/uL (0.01-0.20); Immature Granulocytes % (auto) 0.4 %; Lymphocytes # (auto) 1.21 K/uL (1.2-3.4); Lymphocytes % (auto) 22.4 %; Mean Corpuscular Hemoglobin 26.1 pg (25.0-34.0); Mean Corpuscular Hgb Conc 31.7 g/dL (32.0-36.0); Mean Corpuscular Volume 82.2 fL (80.0-100.0); Mean Platelet Volume 9.6 fL (9.4-12.4); Monocytes # (auto) 0.41 K/uL (0.11-0.59); Monocytes % (auto) 7.6 %; Neutrophils % (auto) 68.5 %; Platelet Count 143 K/uL (130-400); RDW Coefficient of Variation 18.6 % (11.5-14.5); RDW Standard Deviation 54.4 fL (36.4-46.3); Red Blood Count 3.76 M/uL (4.70-6.10)
[2023-04-02 07:49] LABS: Albumin Level 1.7 gm/dl (3.4-5.0); BUN Creatinine Ratio 20.4 (10-20); Calcium 8.2 mg/dl (8.6-10.3); Creatinine Clr Calc Pharmacy 54.7 ml/min; Est GFR (African American) 79.1 ml/min; Est GFR (Non-African American) 68.3 ml/min; Magnesium 1.8 mg/dl (1.7-2.4); Phosphorus 3.4 mg/dl (2.5-4.9); Potassium 4.9 mmol/L (3.5-5.1)
[2023-04-02] MEDS: FOLIC ACID 1 MG in SYRINGE 9.8 ML IV SCH (08:48)
[2023-04-02] MEDS: THIAMINE HCL 100 MG in SYRINGE 9 ML IV SCH (08:48)
[2023-04-02] MEDS: HEPARIN SOD 5,000 UNIT/0.5 ML VIAL SQ SCH (08:48)
[2023-04-02] MEDS: FAMOTIDINE 20 MG in SYRINGE 3 ML IV SCH (08:51)
--- NOTE | 2023-04-02 09:03 | Discharge Summary ---
Date of Service April 02, 2023 Admission HPI Per Admitting Provider The patient is an 82-year-old male with a past medical history including aortic stenosis, lumbar spine stenosis, iron deficiency anemia, vestibular schwannoma, cirrhosis, lethargy, SNHL bilaterally, intraductal papillary mucinous neoplasm of the pancreas, hypertension, depression, esophageal varices, hypercholesterolemia and restless leg syndrome. He has had worsening generalized weakness, weight loss and confusion over the past months. His oral intake has dropped off considerably. Admission Exam Per Admitting Provider The patient is awake, and somewhat lethargic, appears emaciated, normocephalic and atraumatic, lying in bed and in no acute distress. HEENT--PERRL, EOMI, mucous membranes and oropharynx dry. Neck--supple. No JVD. No bruits. Thyroid normal, trachea midline, no adenopathy. Heart--normal S1 and S2. No murmurs, rubs or gallops. Lungs--clear bilaterally, no respiratory distress, no accessory muscle use. Abdomen--normal bowel sounds and soft. Nontender. Nondistended, no hernias or masses, no organomegaly. Extremities--no cyanosis or clubbing. No edema. Dermatologic--normal skin turgor, normal color, no abnormal lymph nodes, no rash. Neurologic--cranial nerves II through XII grossly intact. Rheumatologic--limited exam due to generalized weakness Psychiatric--normal affect. Principal Diagnosis Failure to thrive Discharge Exam Constitutional + ill appearing and + cachectic Neck trachea midline, no thyromegaly Respiratory able to speak in complete sentences; no respiratory distress and no labored breathing Cardiovascular Rate/Rhythm: regular rate and regular rhythm Heart Sounds: normal S1, normal S2 and + murmur Extremities: + edema; no calf tenderness Gastrointestinal (Abdomen) normal bowel sounds, soft, nontender, no hepatosplenomegaly Skin no rashes, warm and dry Psychiatric confused Discharge Data Allergies Allergy/AdvReac Type Severity Reaction Status Date / Time etodolac AdvReac Mild n/v Verified 03/26/23 10:54 meloxicam AdvReac Mild n/v Verified 03/26/23 10:54 Consultations 03/30/23 19:30 ED Decision to Admit Stat 03/31/23 15:01 Consult Palliative Care Routine Ordered Studies 03/30/23 14:15 CT head/brain wo con Stat Hospital Course (1) Failure to thrive in adult: Acute/unstable - high risk - Patient with persistent weight loss of more than 10% body weight - concern for moderate to severe protein calorie malnutrition with a declining albumin of 1.7 - Per , pt is becoming increasingly weak, fatigued, unable to feed self, take pills, maintain adequate oral hydration or nutrition - Ammonia level checked and WNL at 47 - No obvious source of infection, cbc reviewed, normal wbc count at 5.4, no shift - CMP reviewed, not in renal failure, electrolytes stable - UA WNL and respiratory biofire negative, CXR and head CT negative - Magnesium level reviewed today, normalized to 1.8 - mIVF initiated: NSS w/ 20 meq KCl @ 100 ml/hr - NPO as he cannot safely eating/drink and voices no interest in attempting to eat/drink - D/w at bedside on 03/31, palliative medicine consult placed, appreciate assistance - based on their meeting yesterday (04/01), pt and have elected to return home with hospice care today 04/02 (2) Aortic valve stenosis: Chronic/stable - Pt has declined referral to cardiology (3) Cirrhosis: Chronic/stable - Related to prior h/o alcohol abuse - LFTs alk phos elevated at 231, has been waxing and waning dating back to 2016 - Ammonia level obtained and WNL at 47 - Cautious IVF use, monitor for s/sx of volume overload - IV Thiamine + Folic acid ordered - Lactulose, spironolactone, propranolol and lasix held d/t NPO (4) Hypothyroid: Chronic/stable - Unable to safely take PO, therefore thyroid replacement held (5) Hypertension: Chronic/stable - History of such - On diuretics and propranolol for liver disease, esophageal varices of which are on hold d/t NPO status - BP currently low-normal range 114/72 (6) Depression: Chronic/stable - Venlafaxine held d/t NPO status Plan Lengthy discussion with his , Danita, at bedside on 03/31 regarding his progressive decline and failure to thrive. We discussed code status and it was confirmed that the patient had previously indicated he would not want life sustaining measures including cpr, intubation, mech ventilation, or defibrillation. Therefore, his code status was changed to reflect his wishes as confirmed by his to DNR/DNI. Plan is for patient to return home today- 04/02 in the care of his with hospice services. Will need a hospital bed and bedside table, scripts have been written and given to case management team. Appreciate palliative med's assistance in this case. Rx written for Haldol intensol elixir 5mg po q6H prn nausea, agitation, delirium, Ativan 1mg tabs #10 take half q6H prn anxiety or insomnia, 30ml Roxanol 5mg po q 3H prn pain/dyspnea. Plan to be d/w Dr. Wilkes. Home Health Attestation I certify that this patient is under my care and that I, or a physicians electrician assistant working with me, had a face to-face encounter that meets the home health [id number] encounter requirements with this patient. The encounter with the patient was in whole, or in part, for the following medical condition, which is the primary reason for home health care (list medical condition): hyponatremia, failure to thrive, Cirrhosis I certify that, based on my findings, the following services are medically necessary home health services: My clinical findings support the need for the above services because: Caregiver Instruct Med Mgmt, Safety, Disease Process, Signs to Report Home Safety Assessment Medication Compliance and Monitoring Effective of New Medications PT Assessment for Endurance / Balance / Strength PT Eval for Safety and Mobility PT Eval for Safety, Gait Training, Assistive Devices PT Gait and Balance Training, Strengthening and Safety Safety Skilled Nsg Instruction New Medications Skilled Nsg Assess Pt Illness, Disease and Sx Monitoring Teach on Disease Management and Interventions Further, I certify that my clinical findings support that this patient is homebound (i.e. absences from home require considerable and taxing effort and are for medical reasons or congregational services or infrequently or of short duration when for other reasons) because: Supportive Aid - Walker Transportation Assistance/Unable to Leave Home Unassisted Certification for Home Health Services: Based on the above findings, I certify that this patient is confined to the home and needs intermittent mcfp care, physical therapy and/or speech therapy or continues to need occupational therapy. The patient is under my care, and I have initiated the establishment of the plan of care. This patient will be followed by a physician who will periodically review the plan of care. Total Time Total Time Spent Total Time Spent (In Minutes): 40 Discharge Plan Discharge Items Patient Disposition: Hospice - Home Reason For Visit: GENERALIZED WEAKNESS MOD DEHYDRATION, HYPONATREMIA Discharge Diagnosis: failure to thrive, dehydration, hyponatremia Condition on Discharge: Fair Activity: Resume your previous activity Non-emergency contact: Primary Care Provider Call non-emergency contact if: you have any medication questions Follow-up/Referrals: Elliott Ng CRNP [Primary Care Provider] - Diet: Nothing by Mouth Addtl Attending Provider Instructions: Patient is DNR/DNI. Plan is for patient to return home today- 04/02 in the care of his with hospice services. Will need a hospital bed and bedside table, scripts have been written and given to case management team and to be delivered today at noon Rx written for Haldol intensol elixir 5mg po q6H prn nausea, agitation, delirium, Ativan 1mg tabs #10 take half q6H prn anxiety or insomnia, 30ml Roxanol 5mg po q 3H prn pain/dyspnea. Patient can have whatever foods he desires with the understanding for permissive aspiration. Hospice will take care of any further medications and questions. Pending Studies at Discharge: No Stand-Alone Forms: My [facility] Medications and DC Order Prescriptions: New morphine 20 mg/5 mL (4 mg/mL) solution 5 mg PO Q3H MDD 15mg PRN (Reason: pain, dyspnea) Qty: 30 0RF haloperidol lactate 2 mg/mL concentrate 2 mg PO Q6H MDD 6mg PRN (Reason: nausea and vomiting) Qty: 5 0RF lorazepam [Ativan] 0.5 mg tablet 0.5 mg PO Q6H PRN (Reason: anxiety or insomnia) Qty: 10 0RF Discontinued sucralfate [Carafate] 1 gram tablet 1 g PO ACHS Qty: 120 2RF venlafaxine 75 mg capsule,extended release 24hr 150 mg PO QAM Qty: 60 6RF Rx Instructions: CONFIRMED WITH THAT HE IS TAKING 2 CAPSULES (150MG) DAILY cholecalciferol (vitamin D3) 25 mcg (1,000 unit) capsule 25 mcg PO QAM thiamine HCl (vitamin B1) 100 mg tablet 100 mg PO QAM melatonin 5 mg tablet 5 mg PO HS PRN (Reason: Sleep) propranolol 20 mg tablet 20 mg PO BID Qty: 60 0RF lactulose [Enulose] 10 gram/15 mL solution 15 ml PO QID Qty: 237 2RF Rx Instructions: CONFIRMED W/ AND MEY COOPER DC SUMMARY 02/16 atorvastatin 80 mg tablet 80 mg PO QAM pantoprazole 40 mg tablet,delayed release (DR/EC) 40 mg PO AMHS ondansetron 4 mg tablet,disintegrating 4 mg PO Q6H PRN (Reason: Nausea) gabapentin 400 mg capsule 400 mg PO HS fluticasone propionate 50 mcg/actuation spray,suspension 1 spray intranasal HS PRN (Reason: Allergy Symptoms) Rx Instructions: administer into each nostril levothyroxine 25 mcg tablet 25 mcg PO QAM furosemide 20 mg tablet 20 mg PO QAM Rx Instructions: CONFIRMED W/ AND MEY COOPER DC SUMMARY 02/16 spironolactone 50 mg tablet 50 mg PO QAM Rx Instructions: CONFIRMED W/ AND MEY COOPER DC SUMMARY 02/16 magnesium oxide 400 mg magnesium tablet 400 mg PO QAM oxycodone-acetaminophen 5-325 mg Tablet 1 tab PO BID PRN (Reason: Pain) Discharge Orders: Discharge Order (Routine); Ordered 04/02/23 Ordered By: Kymberly Sterling/Other Patient Handouts: Hospice Care Dyspnea Admission Data Admit Date/Time: 03/30/23 19:54 Attending Provider: Duane Wilkes Admit Provider: Lon Pace Primary Care Provider: Elliott Ng Other Providers: Marvin Sagastume ; Lon Pace ; Omero Garsia [facility] ; Carly Melendez Coding Level of Care Code INP/OBS EV SAME DAY LV 1,45MIN Diagnoses Failure to thrive in adult R62.7 Aortic valve stenosis I35.0 Cirrhosis K74.60 Hypothyroid E03.9 Hypertension I10 Hypertension type: essential hypertension Depression F32.9
[2023-04-02] MEDS: NSS + 20MEQ KCL 20 MEQ/1,000 ML BAG IV SCH (09:13)
== END 2023-04-02 14:54 | disposition hospice, home (50) | DRG 640 ==
LOC: ED 13:55 → SUATTDRO 19:54 → 3N 19:54